=== PATIENT | female | born 1970 | race Caucasian/White ===

== ENCOUNTER 2021-09-22 10:28 | Outpatient (CLI) | payer BC, SELFPAY ==
[2021-09-22 10:44] LABS: Hematocrit 42.4 % (35.0-49.0); Mean Corpuscular Hemoglobin 31.3 pg (27.0-31.0); Mean Corpuscular Volume 94.6 fL (78.0-102.0); Mean Platelet Volume 10.1 fl (9.2-11.8); Platelet Count Result 314 K/mm3 (150-420); Red Blood Count 4.48 M/mm3 (4.20-5.40); Red Cell Distribution Width 12.1 % (11.6-14.4); White Blood Count 13.3 K/mm3 (4.8-10.8)
[2021-09-22 11:31] LABS: Alanine Aminotransferase 18 U/L (14-59); Albumin Level 3.6 g/dL (3.4-5.0); Alkaline Phosphatase 74 U/L (46-116); Anion Gap 6 mmol/L (8-16); Aspartate Amino Transferase 11 U/L (15-37); Bilirubin,Total 0.2 mg/dL (0.00-1.00); Blood Urea Nitrogen 13 mg/dL (7-18); Calcium 9.2 mg/dL (8.5-10.1); Carbon Dioxide 28 mmol/L (21-32); Chloride 105 mmol/L (98-108); Cholesterol 180 mg/dL (0-200); Estimated Glomerular Filt Rate > 60; Glucose 90 mg/dL (70-99); HDL Direct 39 mg/dL (40-60); LDL Cholesterol Calculated 81 mg/dL (<130); Osmolality Calculated 288 mOsm/kg (285-295); Sodium 139 mmol/L (136-145); Total Protein 6.7 g/dL (6.4-8.2); Triglycerides 302 mg/dL (0-150)
[2021-09-22 11:35] LABS: Thyroid Stimulating Hormone Reflex 1.05 u/IU/mL (0.36-3.74)
[2021-09-22 11:36] LABS: CRP < 0.2 mg/dL (0.0-0.9)
[2021-09-22 11:54] LABS: Erythrocyte Sedimentation Rate 18 mm/hr (0-15)
== END 2021-09-22 10:29 | disposition home or self-care (01) ==
LOC: CHSLAB 10:32
PROVIDERS: PCP Family Medicine; Visit Provider Internal Medicine Gastroenterology
DX: K50.90 Crohn's disease, unspecified, without complications (principal); C18.1 Malignant neoplasm of appendix; Z86.73 Personal history of transient ischemic attack (TIA), and cerebral infarction without residual deficits; Z12.39 Encounter for other screening for malignant neoplasm of breast; E11.9 Type 2 diabetes mellitus without complications
CPT/HCPCS: 36415; 80053; 80061; 84443; 85027; 85652; 86140

== ENCOUNTER 2021-10-11 15:17 | Outpatient (CLI) | payer BC, SELFPAY ==
[2021-10-11 16:22] LABS: SARS-CoV-2 RNA PCR Positive (Negative)
== END 2021-10-11 15:18 | disposition home or self-care (01) ==
LOC: CHSLAB 15:23
PROVIDERS: PCP Family Medicine; Visit Provider Nurse Practitioner Family
DX: U07.1 COVID-19 (principal)
CPT/HCPCS: C9803; U0003; U0005

== ENCOUNTER 2021-11-24 13:42 | Outpatient (CLI) | payer BC, SELFPAY ==
[2021-11-26 16:16] LABS: NIL 0.02 IU/mL; Quantiferon TB Plus, 1T NEGATIVE (NEGATIVE); TB2-NIL <0.00 IU/mL
== END 2021-11-24 13:43 | disposition home or self-care (01) ==
LOC: CHSLAB 13:44
PROVIDERS: PCP Nurse Practitioner Family; Visit Provider Internal Medicine Gastroenterology
DX: K50.90 Crohn's disease, unspecified, without complications (principal)
CPT/HCPCS: 36415; 86480

== ENCOUNTER 2022-01-02 15:43 | Outpatient (CLI) | payer BC, SELFPAY ==
[2022-01-02 16:08] LABS: Basophils Absolute Auto 0.06 K/mm3 (0.00-0.10); Basophils Percent Auto 0.5 % (0.0-1.0); Eosinophils Absolute Auto 0.09 K/mm3 (0.02-0.50); Eosinophils Percent Auto 0.8 % (1.0-6.0); Hemoglobin 14.1 g/dL (12.0-15.0); Immature Granulocyte Absolute 0.04 K/mm3 (0.00-0.00); Immature Granulocyte Percent A 0.3 % (0.0-0.0); Lymphocytes Absolute Auto 3.39 K/mm3 (1.10-4.50); Lymphocytes Percent Auto 28.8 % (18.0-42.0); Mean Corpuscular HGB Conc 32.8 g/dL (32.0-36.0); Mean Corpuscular Hemoglobin 31.3 pg (27.0-31.0); Mean Corpuscular Volume 95.6 fL (78.0-102.0); Mean Platelet Volume 10.1 fl (9.2-11.8); Monocytes Absolute Auto 0.49 K/mm3 (0.10-0.90); Monocytes Percent Auto 4.2 % (2.0-11.0); Neutrophils Absolute Auto 7.7 K/mm3 (1.7-7.2); Neutrophils Percent Auto 65.4 % (50.0-70.0); Platelet Count Result 298 K/mm3 (150-420); White Blood Count 11.8 K/mm3 (4.8-10.8)
[2022-01-02 16:23] LABS: Alanine Aminotransferase 18 U/L (14-59); Albumin Level 3.4 g/dL (3.4-5.0); Alkaline Phosphatase 63 U/L (46-116); Amylase 54 U/L (25-115); Anion Gap 10 mmol/L (8-16); Aspartate Amino Transferase < 10 U/L (15-37); Bilirubin,Total 0.2 mg/dL (0.00-1.00); Blood Urea Nitrogen 11 mg/dL (7-18); Carbon Dioxide 27 mmol/L (21-32); Chloride 104 mmol/L (98-108); Estimated Glomerular Filt Rate 59; Glucose 126 mg/dL (70-99); Lipase 91 U/L (73-393); Osmolality Calculated 293 mOsm/kg (285-295); Potassium 4.7 mmol/L (3.5-5.1); Sodium 141 mmol/L (136-145)
[2022-01-03 09:48] LABS: Hemoglobin A1C 5.7 % (<5.7)
[2022-01-03 09:51] LABS: Cholesterol 215 mg/dL (0-200); HDL Direct 54 mg/dL (40-60); LDL Cholesterol Calculated 115 mg/dL (<130); Triglycerides 229 mg/dL (0-150)
[2022-01-04 12:25] LABS: Vitamin D 25 Hydroxy 18 ng/mL (30-100)
== END 2022-01-02 15:44 | disposition home or self-care (01) ==
LOC: CHSLAB 15:44
PROVIDERS: PCP Nurse Practitioner Family; Visit Provider Nurse Practitioner Family
DX: R10.11 Right upper quadrant pain (principal); Z79.899 Other long term (current) drug therapy
CPT/HCPCS: 36415; 80053; 80061; 82150; 82306; 83036; 83690; 85025

== ENCOUNTER 2022-01-06 07:45 | Outpatient (CLI) | payer BC, SELFPAY ==
--- NOTE | ~2022-01-06 | CT_ITS ---
EXAMINATION: CT abdomen pelvis w con DATE: 01/06/2022 08:24 INDICATION: Right lower quadrant abdominal pain. TECHNIQUE: Computed tomography (CT) of the abdomen and pelvis was performed with 100 mL Omnipaque-350 intravenous contrast. Automated exposure control and iterative reconstruction technique were employe d. The dose-length product was 697.95 mGy-cm. COMPARISON: None FINDINGS: Lung bases are clear. Heart size is normal. No pericardial or pleural effusion. Liver, gallbladder, s pleen, pancreas, bilateral adrenal glands and left kidney are normal. 2. 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 Suture line at the tip the cecum consistent with prior appendectomy. There is diffuse mild wall thickening of the colon consistent wi th colitis. No pneumatosis. Small bowel is normal. Bladder, uterus and bilateral adnexa are unremarka ble. No abscess or free intraperitoneal gas or fluid. No pathologically enlarged abdominal or pelvic lymphadenopathy. 5 mm retrolisthesis L5 on S1 with mild lumbosacral spondylosis. IMPRESSION: 1. Diffuse mild colonic wall thickening consistent with colitis which could be infectious, inflammato ry or less likely ischemic in etiology. Reviewed, dictated and finalized at location A. CONSULTANT IMPRESSION: 1. Diffuse mild colonic wall thickening consistent with colitis which could be infectious, inflammatory or less likely ischemic in etiology.
== END 2022-01-06 07:46 | disposition home or self-care (01) ==
LOC: CHSIMG 07:47
PROVIDERS: PCP Nurse Practitioner Family; Visit Provider Nurse Practitioner Family
DX: R10.11 Right upper quadrant pain (principal); R10.31 Right lower quadrant pain; R10.32 Left lower quadrant pain; Z85.9 Personal history of malignant neoplasm, unspecified; K50.90 Crohn's disease, unspecified, without complications
CPT/HCPCS: 74177; Q9967

== ENCOUNTER 2022-01-17 11:43 | Outpatient (CLI) | payer BC, SELFPAY ==
[2022-01-17 15:21] LABS: Carcinoembryonic Antigen 0.9 ng/mL (0.0-3.0)
[2022-01-23 16:46] LABS: Serotonin <10 ng/mL (56-244)
== END 2022-01-17 11:44 | disposition home or self-care (01) ==
LOC: ANHLAB 11:45
PROVIDERS: PCP Nurse Practitioner Family; Visit Provider Internal Medicine Hematology & Oncology
DX: C18.1 Malignant neoplasm of appendix (principal)
CPT/HCPCS: 36415; 82378; 84260; 86316

== ENCOUNTER 2022-04-14 13:00 | Outpatient (CLI) | payer BC, SELFPAY | END 2022-04-14 13:01 | disposition home or self-care (01) | PROVIDERS: PCP Family Medicine; Visit Provider Otolaryngology | DX: H91.92 Unspecified hearing loss, left ear (principal) | CPT/HCPCS: 92557; 92567 ==

== ENCOUNTER 2022-04-20 10:18 | Outpatient (CLI) | payer BC, SELFPAY ==
--- NOTE | ~2022-04-20 | XR_ITS ---
EXAMINATION: HAND-MYAH ARTHRITIS 3+VIEWS DATE: 04/20/2022 10:58 INDICATION: Pain and unspecified joint. Arthritis. TECHNIQUE: Posteroanterior, lateral, and oblique views of the left and of the right hands as well as a ballcatchers view of both hands were obtained. COMPARISON: None. 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 Residual tiny bone fragment along the osteotomy margin. The left fourth digit is curled back upon itself with persistent flexion at the proximal and distal interphalangeal joints. Alignment is other hawley normal at the bilateral hands and wrists. No acute fracture. Joint spaces are normal. No erosion s identified. Soft tissues are unremarkable. IMPRESSION: 1. Persistent flexion at the left fourth proximal and distal interphalangeal joints, unclear whether this is due to transient positioning of the finger in flexion or due to a chronic fixed flexion defor mity. 2. 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 No acute osseous abnormality. Reviewed, dictated and finalized at location B. IMPRESSION: 1. Persistent flexion at the left fourth proximal and distal interphalangeal neris ints, unclear whether this is due to transient positioning of the finger in fle xion or due to a chronic fixed flexion deformity. 2. Status post amputation across the midportion of the right second distal phal anx. No acute osseous abnormality.
--- NOTE | ~2022-04-20 | XR_ITS ---
EXAMINATION: [id number] DATE: 04/20/2022 10:58 INDICATION: Neck pain. TECHNIQUE: 3 views of cervical spine were obtained. COMPARISON: None. FINDINGS: There is hypolordosis of cervical spine. Vertebral body heights and intervertebral disc hei ghts are normal. The facet joints are normal. No central canal stenosis or prevertebral soft tissue s welling. IMPRESSION: 1. No etiology for the patient's symptoms. Reviewed, dictated and finalized at location A.
[2022-04-20 10:43] LABS: Hemoglobin 12.9 g/dL (12.0-15.0); Mean Corpuscular HGB Conc 32.3 g/dL (32.0-36.0); Mean Corpuscular Hemoglobin 30.8 pg (27.0-31.0); Mean Corpuscular Volume 95.5 fL (78.0-102.0); Mean Platelet Volume 10.2 fl (9.2-11.8); Platelet Count Result 240 K/mm3 (150-420); Red Blood Count 4.19 M/mm3 (4.20-5.40); Red Cell Distribution Width 12.6 % (11.6-14.4); White Blood Count 8.7 K/mm3 (4.8-10.8)
[2022-04-20 10:58] LABS: Alanine Aminotransferase 22 U/L (14-59); Albumin Level 3.4 g/dL (3.4-5.0); Alkaline Phosphatase 66 U/L (46-116); Anion Gap 5 mmol/L (8-16); Aspartate Amino Transferase 18 U/L (15-37); Bilirubin,Total 0.3 mg/dL (0.00-1.00); Blood Urea Nitrogen 12 mg/dL (7-18); Calcium 8.7 mg/dL (8.5-10.1); Carbon Dioxide 28 mmol/L (21-32); Chloride 103 mmol/L (98-108); Estimated Glomerular Filt Rate > 60; Glucose 94 mg/dL (70-99); Osmolality Calculated 281 mOsm/kg (285-295); Potassium 3.7 mmol/L (3.5-5.1); Sodium 136 mmol/L (136-145); Total Protein 6.8 g/dL (6.4-8.2); Uric Acid 4.6 mg/dL (2.6-6.0)
[2022-04-20 11:13] LABS: Rheumatoid Factor Screen Negative (Negative)
[2022-04-20 11:46] LABS: Erythrocyte Sedimentation Rate 15 mm/hr (0-15)
[2022-04-21 14:33] LABS: Thyroid Stimulating Hormone 1.97 uIU/mL (0.36-3.74)
[2022-04-25 22:26] LABS: Anti Nuclear Antibody Titer 1:40 (Negative)
== END 2022-04-20 10:19 | disposition home or self-care (01) ==
LOC: CHSLAB 10:22
PROVIDERS: PCP Family Medicine; Visit Provider Family Medicine
DX: M25.50 Pain in unspecified joint (principal); R60.9 Edema, unspecified; M54.9 Dorsalgia, unspecified; M54.2 Cervicalgia
CPT/HCPCS: 36415; 72040; 73130; 80053; 84443; 84550; 85027; 85652; 86038; 86039; 86430

== ENCOUNTER 2022-05-18 11:37 | Outpatient (CLI) | payer BC, SELFPAY ==
--- NOTE | 2022-05-18 11:43 | ECG_ITS ---
Measurements Intervals [place] Rate: 63 P: 72 MN: 139 QRS: 67 QRSD: 86 T: 66 QT: 400 QTc: 412 Interpretive Statements SINUS RHYTHM NO PREVIOUS ECG AVAILABLE FOR COMPARISON Electronically Signed On 05-18-2022 18:15:27 CDT by Dana Velez M.D.
== END 2022-05-18 11:38 | disposition home or self-care (01) ==
LOC: CHSIMG 11:39
PROVIDERS: PCP Family Medicine; Visit Provider Anesthesiology
DX: I48.91 Unspecified atrial fibrillation (principal)
CPT/HCPCS: 93005

== ENCOUNTER 2022-05-19 01:05 | Day surgery (SDC) | payer BC, SELFPAY ==
[2022-05-12 16:04] VITALS: BMI 31.6
--- NOTE | 2022-05-12 16:11 | SUR.PREOP ---
Report to the Outpatient Waiting Room, entrance under the green pavilion located off [facility], at time _0700 on date __05/19/22 . [place] Time: 0900 . - You and your visitor will be asked a series of questions to screen for COVID 19 for your protection. - Only one visitor is allowed at this time. - The patient visitor is requested to leave or wait in car when not with patient. - A mask is required within the hospital. Patients may have clear liquids (water, carbonated beverages, clear teas, apple juice) until 3 hours prior to surgery with a maximum of 20 ounces. - No food from midnight until time of surgery - Infants may have breast milk until 4 hours before surgery, infant formula 6 hours prior to surgery. - Children will be allowed to drink immediately following surgery. If applicable, please bring a bottle or sippy cup to assist with drinking. Juice, water, soda, and popsicles are readily available. For infants on formula, please bring formula the day of surgery. Pacifiers are allowed. Take the following medications with a SIP of water the morning of surgery: __prednisone Medications to discontinue per physician ___to inquire with surgeon about asa and eliquis vitamin supplements Date to take last dose____05/16/22 Please no make-up, nail comoran, hairspray, perfume, deodorant, or body powder the day of surgery. No jewelry (including any body piercings) or valuables the day of surgery, leave them at home. Please take a shower or bath the night before, or the morning of, surgery with an antibacterial soap. Wear comfortable, loose fitting clothing. Children are encouraged to wear pajamas. - Jewelry must be removed prior to entering the operating room. Rings and piercings that are not removed may be cut off. - The hospital will not accept responsibility for valuables. - Please leave all valuables, including medications, at home the day of surgery. If you are going home after surgery, a licensed tram driver must drive you home. - NO public transportation without another adult. - We recommend that an adult stay with you for 24 hours following discharge. - We also recommend that you do not drive, make important decision, drink alcoholic beverages, or take any drugs that were not prescribed by your health care provider for at least 24 hours after your discharge time. For Pediatric surgeries, we recommend two adults accompany the child home (only one inside the building at this time). Follow any additional instructions given to you from your surgeon. If you or anyone in your household have experienced Covid symptoms in the past week, please notify your surgeon or the nurse liaison at the phone number below for possible testing. Telephone instructions given to _herminio rowell and asked if any additional questions and then verbalized understanding. Patient advised to call surgeon office or pre surgery nurse liaison [phone] if any additional questions.
--- NOTE | 2022-05-18 16:41 | PM.IMHP ---
H&P: HPI History of Present Illness Date/Time: 05/18/22 16:41 Chief Complaint: Eustachian tube dysfunction bilateral otitis media hearing loss Narrative: Patient presents for planned surgical procedure no change in symptoms no change in history Review of Systems Review of Systems: All systems reviewed & are unremarkable except as noted in HPI and below [facility] Past Medical History Medical History Amputated toe of right foot Arnold-Chiari malformation Atrial fibrillation Crohn's disease Epistaxis Goblet cell carcinoid History of CVA (cerebrovascular accident) Portal vein thrombosis Uveitis Surgical History Surgical History H/O shoulder surgery H/O sinus surgery H/O surgical amputation of finger History of appendectomy 05/2019 History of bowel resection History of ear surgery Social History Social History Smoking status: Former smoker Tobacco type: cigarettes Smoking end date: 09/19/15 Additional smoking assessment comments: 25 years 2 ppd cigarettes Alcohol intake: never Substance use: never Substance use type: marijuana Other substance usage details: marijuana tea 5x a week Spiritual care concerns: No Meds Home Medications and Allergies Home Medications Medication Instructions Recorded Confirmed Type apixaban 5 mg tablet (Eliquis) 5 mg PO BID 08/02/21 05/12/22 History hegpyakdhhkwpo-xodhywnyak-dwecmkp-zinc 1 supp RECTAL PRN PRN Hemorrhoids 08/02/21 05/12/22 History 25 mg rectal suppository ondansetron HCl 4 mg tablet 4 mg PO Q8H 08/02/21 05/12/22 History (Zofran) sucralfate 1 gram tablet 1 g PO TID PRN Acid Reflux 08/02/21 05/12/22 History adalimumab 40 mg/0.8 mL See Rx Instructions subcut .Every 10/24/21 05/12/22 Rx subcutaneous pen kit (Humira Pen) other Week #2 ea pantoprazole 40 mg tablet,delayed 40 mg PO QAM #90 tabs 01/09/22 05/12/22 Rx release mercaptopurine 50 mg tablet 50 mg PO DAILY #30 tabs 01/18/22 05/12/22 Rx alprazolam 0.5 mg tablet 0.5 mg PO DAILY PRN anxiety #20 03/22/22 05/12/22 Rx tabs atorvastatin 40 mg tablet 40 mg PO DAILY #90 tabs 03/22/22 05/12/22 Rx cholecalciferol (vitamin D3) 1,250 1,250 mcg PO WEEKLY #12 caps 03/22/22 05/12/22 Rx mcg (50,000 unit) capsule prednisone 10 mg tablet 10 mg PO DAILY 04/24/22 05/12/22 History mupirocin 2 % topical ointment 1 applic topical BID #22 grams 04/25/22 05/12/22 Rx ascorbic acid (vitamin C) 1,000 mg 1 g PO DAILY 05/12/22 05/12/22 History tablet (Vitamin C) aspirin 81 mg tablet,delayed 81 mg PO DAILY 05/12/22 05/12/22 History release paroxetine HCl 10 mg tablet 10 mg PO HS 05/12/22 05/12/22 History prednisolone acetate 1 % eye 1 drp EACH EYE PRN 05/12/22 05/12/22 History drops,suspension tumeric 100 mg-benjy 150 mg-olive 1 cap PO DAILY 05/12/22 05/12/22 History 50 mg-oreg 150 mg-caprylate capsule vitamin B12 1,000 mcg-folic acid 1 tablet sublingual DAILY 05/12/22 05/12/22 History 400 mcg sublingual tablet oxycodone 5 mg tablet 5 mg PO Q8H PRN pain #2 tabs 05/16/22 Rx Allergies Allergy/AdvReac Type Severity Reaction Status Date / Time metronidazole [From Flagyl] Allergy Severe GI bleeding Verified 05/12/22 15:12 Sulfa (Sulfonamide Allergy Severe GI Bleeding Verified 05/12/22 15:12 Antibiotics) hydrocodone [From Vicodin] AdvReac Severe Vomiting Verified 05/12/22 15:12 Exam Narrative: Ears retracted fluid septal deviation otherwise normal ENT exam normal face cranial nerves Assessment and Plan Assessment and plan (1) Dysfunction of both eustachian tubes: Code(s): H69.83 - Other specified disorders of Eustachian tube, bilateral Status: Acute Assessment and Plan: Plan is for nasal endoscopy bilateral eustachian tube balloon dilation bilateral ofe microscopy with T-tube insertion
[2022-05-19] VITALS (10 sets, daily range): BP systolic 100–142; BP diastolic 62–94; PULSE 57–77; RESP 8–20; TEMP 36.1–36.5; O2SAT 94–100
--- NOTE | 2022-05-19 07:14 | WPDHPUPDATE1 ---
History and Physical Update Update Date/Time: 05/19/22 07:14 History and Physical has been reviewed, including an updated exam of the patient. There are NO changes in the patient's condition. Risks, benefits, and alternatives have been discussed and questions answered. Patient agrees to proceed with procedure.
[2022-05-19] MEDS: ACETAMINOPHEN 500 MG TABLET 1000 MG PO (07:57)
--- NOTE | 2022-05-19 08:05 | WPDANESEPPF ---
Anes - Initial Pre Proc Eval Procedure: Operation Date: 05/19/22 09:15 Proposed Procedures p Bilateral Myringotomy, Insertion Of Tubes, with Eustachian Tube Dilation, - Lucho Peralta MD s Nasopharyngoscopy - Lucho Peralta MD Date/Time: 05/19/22 08:05 Surgeon: Lucho Peralta MD Pre Op Diagnosis: biateral chronic otitis media Patient Data Age: 51 Gender: F Height: 1.65 m Weight: 88.1 kg Last Vital Signs Temp 36.1 C L 05/19/22 07:27 Pulse 67 05/19/22 07:27 Resp 18 05/19/22 07:27 BP 135/82 05/19/22 07:27 Pulse Ox 100 05/19/22 07:27 O2 Del Method Room Air 05/19/22 07:27 Allergies Allergy/AdvReac Type Severity Reaction Status Date / Time metronidazole [From Flagyl] Allergy Severe GI bleeding Verified 05/12/22 15:12 Sulfa (Sulfonamide Allergy Severe GI Bleeding Verified 05/12/22 15:12 Antibiotics) hydrocodone [From Vicodin] AdvReac Severe Vomiting Verified 05/12/22 15:12 Home Medications Medication Instructions Recorded Confirmed Type apixaban 5 mg tablet (Eliquis) 5 mg PO BID 08/02/21 05/12/22 History qvjadrnuvuzdes-zxlyrbgfvi-vjbzmen-zinc 1 supp RECTAL PRN PRN Hemorrhoids 08/02/21 05/12/22 History 25 mg rectal suppository ondansetron HCl 4 mg tablet 4 mg PO Q8H 08/02/21 05/12/22 History (Zofran) sucralfate 1 gram tablet 1 g PO TID PRN Acid Reflux 08/02/21 05/12/22 History adalimumab 40 mg/0.8 mL See Rx Instructions subcut .Every 10/24/21 05/12/22 Rx subcutaneous pen kit (Humira Pen) other Week #2 ea pantoprazole 40 mg tablet,delayed 40 mg PO QAM #90 tabs 01/09/22 05/12/22 Rx release mercaptopurine 50 mg tablet 50 mg PO DAILY #30 tabs 01/18/22 05/12/22 Rx alprazolam 0.5 mg tablet 0.5 mg PO DAILY PRN anxiety #20 03/22/22 05/12/22 Rx tabs atorvastatin 40 mg tablet 40 mg PO DAILY #90 tabs 03/22/22 05/12/22 Rx cholecalciferol (vitamin D3) 1,250 1,250 mcg PO WEEKLY #12 caps 03/22/22 05/12/22 Rx mcg (50,000 unit) capsule prednisone 10 mg tablet 10 mg PO DAILY 04/24/22 05/12/22 History mupirocin 2 % topical ointment 1 applic topical BID #22 grams 04/25/22 05/12/22 Rx ascorbic acid (vitamin C) 1,000 mg 1 g PO DAILY 05/12/22 05/12/22 History tablet (Vitamin C) aspirin 81 mg tablet,delayed 81 mg PO DAILY 05/12/22 05/12/22 History release paroxetine HCl 10 mg tablet 10 mg PO HS 05/12/22 05/12/22 History prednisolone acetate 1 % eye 1 drp EACH EYE PRN 05/12/22 05/12/22 History drops,suspension tumeric 100 mg-benjy 150 mg-olive 1 cap PO DAILY 05/12/22 05/12/22 History 50 mg-oreg 150 mg-caprylate capsule vitamin B12 1,000 mcg-folic acid 1 tablet sublingual DAILY 05/12/22 05/12/22 History 400 mcg sublingual tablet oxycodone 5 mg tablet 5 mg PO Q8H PRN pain #2 tabs 05/16/22 Rx Patient hx anesthesia problems: none Family hx anesthesia problems: none Results Review: All pre-operative results and documents have been reviewed as part of the pre-operative evaluation. [facility] Past Medical History Medical History Amputated toe of right foot Arnold-Chiari malformation Atrial fibrillation Crohn's disease Epistaxis Goblet cell carcinoid History of CVA (cerebrovascular accident) Portal vein thrombosis Uveitis Surgical History Surgical History H/O shoulder surgery H/O sinus surgery H/O surgical amputation of finger History of appendectomy 05/2019 History of bowel resection History of ear surgery Social History Social History Smoking status: Former smoker Tobacco type: cigarettes Smoking end date: 09/19/15 Additional smoking assessment comments: Quit 2015. 35pk yr history Alcohol intake: never Substance use: never Substance use type: marijuana Other substance usage details: marijuana tea 5x a week Living arrangements: with family Spiritual care concerns: Roxana Salcedo
[2022-05-19] MEDS: CIPROFLOXACIN HCL 0.3% OP SOLN 2.5 ML BTL 4 DROP EACH EAR (09:36)
[2022-05-19] MEDS: OXYMETAZOLINE HCL 0.05% NAS 15 ML BTL (*BKC) 1 SPRAY NASAL (09:51)
[2022-05-19] MEDS: LACTATED RINGERS 1,000 ML 30 ML IV CONT ×2 (10:15→10:35)
--- NOTE | 2022-05-19 10:30 | P.OP_ITS ---
Procedure Note - Detailed Date of Procedure 05/19/22 Pre-op Diagnosis biateral chronic otitis media, eustachian tube dysfunction bilateral Post-op Diagnosis Same Procedure Performed Nasopharyngoscopy unable to fully dilate eustachian tubes, bilateral myringotomy with T-tube insertion., nasal debridement with nasal endoscopy Surgeon Lucho Peralta MD Anesthesia General Indications See above Findings Severely retracted bilateral ear drums basically thick mucus motor oil in the bilateral middle ears suctioned out T-Tube placed successfully unable to cannulate the left eustachian tube completely scarred down only able to get the tip of the balloon in the right-sided unable to dilate either. Left sphenoid sinusitis or sphenoethmoidal recess this was cleaned debrided lots nasal crust was all debrided. Description of Procedure Patient identified consent verified. Patient brought operating. Time-out performed. General anesthesia induced endotracheal tube secured. Patient prepped and draped for procedure 2nd performed. Joe microscope brought in operative field right-sided viewed TM retracted thick mucus myringotomy made thick mucus suctioned out T-Tube placed drops placed exact same procedure exact same findings performed on the left side. Was a bilateral procedure. Afrin- soaked pledgets placed for 5 minutes the nasal passages then removed. 0 degree endoscope utilized septal deviation. Nose was debrided. Persistent left sinus sphenoid sinusitis. Unable to cannulate either torus left was essentially non- existent right was able to get the tip and the not able to fully insert the device. Patient tolerated the procedure well no complications blood loss probably 1-5 cc. I did all the procedure care the patient given Anesthesiology. Patient taken to PACU. Estimated Blood Loss 1 Drains No Packing No Pathology None sent Complications No immediate complications Condition Stable Disposition PACU
[2022-05-19] MEDS: fentaNYL CITRATE INJ (*CRX) 100 MCG/2 ML VIAL 25 MCG IV PUSH ×2 (10:33→10:35)
== END 2022-05-19 12:42 | disposition home or self-care (01) ==
PROVIDERS: PCP Family Medicine; Visit Provider Otolaryngology
PROC: (CPT 69436; principal; 2022-05-19 09:15)
PROC: (CPT 69436; 2022-05-19 09:15)
DX: H66.93 Otitis media, unspecified, bilateral (principal); H69.83 Other specified disorders of Eustachian tube, bilateral; J32.3 Chronic sphenoidal sinusitis; H91.93 Unspecified hearing loss, bilateral; J34.2 Deviated nasal septum; I48.91 Unspecified atrial fibrillation; K50.90 Crohn's disease, unspecified, without complications; F12.90 Cannabis use, unspecified, uncomplicated; E66.9 Obesity, unspecified; Z68.32 Body mass index [BMI] 32.0-32.9, adult; Z86.73 Personal history of transient ischemic attack (TIA), and cerebral infarction without residual deficits; Z79.82 Long term (current) use of aspirin; Z79.01 Long term (current) use of anticoagulants; Z87.891 Personal history of nicotine dependence
CPT/HCPCS: 69436; 31237; A9270; C1726; J0330; J2250; J2405; J2704; J3010; J7120

== ENCOUNTER 2022-05-31 13:57 | Outpatient (CLI) | payer BC, SELFPAY ==
--- NOTE | ~2022-05-31 | CT_ITS ---
EXAMINATION: CT abdomen pelvis w con DATE: 05/31/2022 14:42 INDICATION: Malignant neoplasm of the appendix. TECHNIQUE: Computed tomography (CT) of the abdomen and pelvis was performed with 100 mL Omnipaque-300 intravenous contrast. Automated exposure control and iterative reconstruction technique were employe d. The dose-length product was 586.12 mGy-cm. COMPARISON: 01/06/2022 FINDINGS: Lung bases are clear. Heart size is normal. No pericardial or pleural effusion. Liver, gallbladder, s pleen, pancreas, bilateral adrenal glands and kidneys are normal. Suture line at the tip the cecum co nsistent with provided history of prior appendectomy for gout with subtle carcinoma. Bowels are other hawley unremarkable with no obstruction. Bladder, anteverted uterus and bilateral adnexa are unremarkab le. No free intraperitoneal gas or fluid. No pathologically enlarged abdominal or pelvic lymphadenopa thy. Unchanged 5 mm retrolisthesis L5 on S1 with mild lumbosacral spondylosis. . IMPRESSION: 1. Status post appendectomy reportedly for comfort cell carcinoma. No evident metastatic disease. Reviewed, dictated and finalized at location B. IMPRESSION: 1. Status post appendectomy reportedly for comfort cell carcinoma. No evident m etastatic disease.
== END 2022-05-31 13:58 | disposition home or self-care (01) ==
LOC: ANHIMG 13:58
PROVIDERS: PCP Family Medicine; Visit Provider Internal Medicine Hematology & Oncology
DX: C18.1 Malignant neoplasm of appendix (principal); K55.069 Acute infarction of intestine, part and extent unspecified; M47.817 Spondylosis without myelopathy or radiculopathy, lumbosacral region; R10.9 Unspecified abdominal pain
CPT/HCPCS: 74177; Q9967

== ENCOUNTER 2022-07-05 11:58 | Outpatient (CLI) | payer BC, SELFPAY ==
[2022-07-05 12:25] LABS: Basophils Percent Auto 0.4 % (0.2-1.2); Eosinophils Absolute Auto 0.1 K/mm3 (0-0.3); Eosinophils Percent Auto 0.6 % (0-4.4); Hematocrit 42.3 % (37.0-47.0); Hemoglobin 13.8 g/dL (12.0-15.0); Immature Granulocyte Absolute 0.02 K/mm3 (0.00-0.031); Immature Granulocyte Percent A 0.2 % (0-0.5); Lymphocytes Absolute Auto 2.04 K/mm3 (0.9-3.2); Lymphocytes Percent Auto 24.3 % (18.3-44.2); Mean Corpuscular HGB Conc 32.6 g/dl (32-36); Mean Corpuscular Hemoglobin 31.3 pg (26-34); Mean Corpuscular Volume 95.9 fl (80-100); Mean Platelet Volume 10.2 fl (7.4-10.4); Monocytes Absolute Auto 0.3 K/mm3 (0.1-0.6); Monocytes Percent Auto 3.5 % (2.6-8.5); Platelet Count Result 246 k/mm3 (150-375); Red Blood Count 4.41 M/mm3 (4.2-5.4); Red Cell Distribution Width 13.2 % (11.5-14.5); White Blood Count 8.4 K/mm3 (4.5-10.0)
--- NOTE | 2022-07-05 12:28 | ECHO_ITS ---
Patient Info Name: Danette Thomas Age: 51 years : 1970 Gender: Female Ht: 64 in Wt: 192 lbs BSA: 2.02 m2 HR: 69 bpm BP: 108 / 65 mmHg Heart Rhythm: Sinus Rhythm Technical Quality: Fair Exam Date: 07/05/2022 12:53 PM Exam Location: [facility] Patient Status: Outpatient Admit Date: 07/05/2022 Staff Ordering Physician: Grey Bartlett DO Popcorn Candy Maker: Dalai Meyer RDCS Attending Provider: Grey Bartlett DO Referring Physician: Dhruv CHAWLA; Exam Type: CA echo doppler color flow Study Info Indications I48.0 - Paroxysmal atrial fibrillation Complete two-dimensional, color flow and Doppler transthoracic echocardiogram is performed. Summary 1. Complete two-dimensional, color flow and Doppler transthoracic echocardiogram is performed. 2. Left ventricular chamber dimension is normal. 3. Left ventricular systolic function is normal, estimated at 60-65%. 4. The left ventricular diastolic function is normal. 5. E/e' 8 is minimally elevated. 6. There is trace mitral valve regurgitation. 7. There is trace tricuspid valve regurgitation. 8. No pulmonary hypertension, estimated pulmonary arterial systolic pressure is 33 mmHg. Left Ventricle E/e' 8 is minimally elevated. Left ventricular chamber dimension is normal. Left ventricular systolic function is normal, estimated at 60-65%. The left ventricular diastolic function is normal. Right Ventricle Right ventricular chamber dimension is normal. Right ventricular systolic function is normal. Left Atria Left atrial chamber dimension is normal. Right Atria Right atrial chamber dimension is normal. Aortic Valve The aortic valve is trileaflet. There is no aortic valve stenosis. There is no aortic valve regurgitation. Pulmonic Valve There is no pulmonic regurgitation. Mitral Valve There is no mitral valve stenosis. There is trace mitral valve regurgitation. Tricuspid Valve There is trace tricuspid valve regurgitation. No pulmonary hypertension, estimated pulmonary arterial systolic pressure is 33 mmHg. Pericardium/Pleural There is no pericardial effusion. Inferior Vena Cava Normal inferior vena cava with >50% collapse upon inspiration consistent with normal right atrial pressure, 5 mmHg. Aorta The aortic root size at the sinus of Valsalva is normal. Left Ventricular Outflow Tract Name Value Normal LVOT 2D LVOT Diameter 2.0 cm LVOT Doppler LVOT Peak Gradient 7 mmHg LVOT Mean Gradient 4 mmHg LVOT VTI 28 cm LVOT VTI/AV VTI Ratio 0.8 LVOT Stroke Volume 84 ml LVOT CO 5.5 l/min LVOT CI 2.7 l/min/m2 Pulmonic Valve Name Value Normal RVOT Doppler RVOT
[2022-07-05 12:41] LABS: Alanine Aminotransferase 12 U/L (6-35); Albumin Level 4.1 g/dL (3.5-5.1); Alkaline Phosphatase 58 U/L (38-126); Anion Gap 6 mmol/L (8-16); Aspartate Amino Transferase 20 U/L (14-36); Bilirubin,Total 0.3 mg/dL (0.2-1.3); Blood Urea Nitrogen 13 mg/dL (7-17); Calcium 9.2 mg/dL (8.4-10.2); Carbon Dioxide 27 mmol/L (22-30); Chloride 101 mmol/L (98-107); Estimated Glomerular Filt Rate 59; Glucose 113 mg/dL (65-110); Potassium 4.7 mmol/L (3.4-5.0); Sodium 134 mmol/L (137-145)
[2022-07-05 13:10] LABS: Carcinoembryonic Antigen 1.4 ng/mL (0.0-3.0)
== END 2022-07-05 11:59 | disposition home or self-care (01) ==
PROVIDERS: PCP Family Medicine; Visit Provider Internal Medicine Cardiovascular Disease
DX: C18.1 Malignant neoplasm of appendix (principal); I48.0 Paroxysmal atrial fibrillation; I48.91 Unspecified atrial fibrillation
CPT/HCPCS: 36415; 80053; 82378; 85025; 86316; 93306

== ENCOUNTER 2022-08-07 08:12 | Outpatient (CLI) | payer BC, SELFPAY ==
--- NOTE | ~2022-08-07 | CT_ITS ---
EXAMINATION: CT brain wo/w con DATE: 08/07/2022 09:03 INDICATION: Right arm weakness. Head pressure for 2 weeks. History of Chiari type I malformation. Pos tsurgical change of the posterior skull. History of stroke and infarct. TECHNIQUE: Computed tomography (CT) of the head was performed without intravenous contrast. The dose- length product was 1210.67 mGy-cm. Automated exposure control and iterative reconstruction technique were employed. COMPARISON: None FINDINGS: There is mild focal encephalomalacia with sulcal prominence of the left parietal vertex. No ventriculomegaly or midline shift. Basilar cisterns are patent. There are surgical changes at the oc cipital aspect of the skull. There is low lying cerebellar tonsils, consistent with known Chiari malf ormation. No ventriculomegaly or midline shift. No acute intracranial hemorrhage, infarction, mass or mass effect. Midline sagittal images demonstrate a normal corpus callosum and sella turcica. There i s mucosal thickening of the left frontal, maxillary and ethmoid sinuses. There is mild mucoperiosteal reaction. IMPRESSION: 1. Probable chronic left parietal infarction with encephalomalacia. 2: No acute intracranial abnormality. 3: Moderate sinus disease, likely chronic. Reviewed, dictated and finalized at location A.
== END 2022-08-07 08:13 | disposition home or self-care (01) ==
LOC: CHSIMG 08:13
PROVIDERS: PCP Family Medicine; Visit Provider Psychiatry & Neurology Neurology
DX: I63.9 Cerebral infarction, unspecified (principal)
CPT/HCPCS: 70470; Q9967

== ENCOUNTER 2022-09-18 14:21 | Emergency (ER) | payer BC, SELFPAY ==
--- NOTE | ~2022-09-18 | CT_ITS ---
EXAMINATION: CT abdomen pelvis wo con DATE: 09/18/2022 16:05 INDICATION: Left upper quadrant abdominal pain. TECHNIQUE: Computed tomography (CT) of the abdomen and pelvis was performed without intravenous contr ast. Automated exposure control and iterative reconstruction technique were employed. The dose-length product was 659.91 mGy-cm. COMPARISON: 05/31/2022 FINDINGS: Lung bases are clear. Visualized inferior heart is normal. No pericardial or pleural effusion. Liver, gallbladder, spleen, pancreas, bilateral adrenal glands and left kidney are normal. 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 Paracolic anastomosis in the right abdomen suggesting prior resection of the cecum and terminal ileum. 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 Also consistent with seq uela of chronic Crohn's disease is chronic fatty infiltration of the wall of multiple loops of ileum in the right abdomen. No focal inflammatory stranding, pneumatosis, abscess or free intraperitoneal g as or fluid. Bladder, anteverted uterus and bilateral adnexa are unremarkable. No pathologically enla rged abdominal or pelvic lymphadenopathy. Moderate lumbosacral spondylosis. IMPRESSION: 1. Wall thickening of multiple loops of distal small bowel is much of the colon which demonstrates fa t attenuation and favors chronic fatty infiltration which could be related to either body habitus or more likely sequela of chronic inflammation in this patient with known history of Crohn's disease. No regions of inflammatory stranding to suggest acute Crohn's flare. Reviewed, dictated and finalized at location B. IMPRESSION: 1. Wall thickening of multiple loops of distal small bowel is much of the colon which demonstrates fat attenuation and favors chronic fatty infiltration which could be related to either body habitus or more likely sequela of chronic infl ammation in this patient with known history of Crohn's disease. No regions of i nflammatory stranding to suggest acute Crohn's flare.
[2022-09-18 15:10] VITALS: BP 118/85; PULSE 76; RESP 16; TEMP 36.3; O2SAT 95
--- NOTE | 2022-09-18 15:34 | ECG_ITS ---
Measurements Intervals [place] Rate: 71 P: 74 MN: 132 QRS: 76 QRSD: 92 T: 74 QT: 389 QTc: 425 Interpretive Statements SINUS RHYTHM WITH SINUS ARRHYTHMIA DELAYED PRECORDIAL R/S TRANSITION BASELINE WANDER- I BORDERLINE ECG COMPARED TO ECG 05/18/2022 11:54:11 SINUS ARRHYTHMIA NOW PRESENT Electronically Signed On 09-19-2022 6:45:15 CDT by Grey Bartlett D.O.
[2022-09-18 15:59] LABS: Basophils Absolute Auto 0.02 K/mm3 (0.00-0.10); Basophils Percent Auto 0.2 % (0.0-1.0); Hematocrit 39.6 % (35.0-49.0); Hemoglobin 13.1 g/dL (12.0-15.0); Immature Granulocyte Absolute 0.02 K/mm3 (0.00-0.00); Immature Granulocyte Percent A 0.2 % (0.0-0.0); Lymphocytes Absolute Auto 2.36 K/mm3 (1.10-4.50); Lymphocytes Percent Auto 27.2 % (18.0-42.0); Mean Corpuscular HGB Conc 33.1 g/dL (32.0-36.0); Mean Corpuscular Hemoglobin 31.1 pg (27.0-31.0); Mean Corpuscular Volume 94.1 fL (78.0-102.0); Mean Platelet Volume 10.3 fl (9.2-11.8); Monocytes Absolute Auto 0.36 K/mm3 (0.10-0.90); Monocytes Percent Auto 4.1 % (2.0-11.0); Neutrophils Absolute Auto 5.9 K/mm3 (1.7-7.2); Neutrophils Percent Auto 68.3 % (50.0-70.0); Platelet Count Result 242 K/mm3 (150-420); Red Blood Count 4.21 M/mm3 (4.20-5.40); Red Cell Distribution Width 12.9 % (11.6-14.4); White Blood Count 8.7 K/mm3 (4.8-10.8)
[2022-09-18 16:14] LABS: INR 0.9; Partial Thromboplastin Time 28.7 SEC (23.90-30.70); Prothrombin Time 10.4 Seconds (9.50-12.10)
[2022-09-18 16:17] LABS: Alanine Aminotransferase 17 U/L (14-59); Albumin Level 3.6 g/dL (3.4-5.0); Alkaline Phosphatase 61 U/L (46-116); Anion Gap 7 mmol/L (8-16); Aspartate Amino Transferase 14 U/L (15-37); Bilirubin,Total 0.3 mg/dL (0.00-1.00); Blood Urea Nitrogen 10 mg/dL (7-18); Calcium 8.8 mg/dL (8.5-10.1); Carbon Dioxide 26 mmol/L (21-32); Chloride 107 mmol/L (98-108); Estimated Glomerular Filt Rate 58; Glucose 118 mg/dL (70-99); Osmolality Calculated 290 mOsm/kg (285-295); Potassium 5.1 mmol/L (3.5-5.1); Sodium 140 mmol/L (136-145); Total Protein 6.7 g/dL (6.4-8.2); Troponin I 6.7 ng/L (0.00-60.4)
[2022-09-18 16:20] VITALS: BP 120/78; PULSE 72; RESP 16; O2SAT 97
[2022-09-18] MEDS: SODIUM CHLORIDE 0.9% IV 1,000 ML 150 ML IV CONT (16:43)
[2022-09-18] MEDS: ONDANSETRON INJ 4 MG/2 ML VIAL IV PUSH (16:44)
[2022-09-18] MEDS: PANTOPRAZOLE SODIUM IV 40 MG VIAL IV PUSH (16:44)
[2022-09-18] MEDS: MORPHINE SULFATE (*CRX) 2 MG/ML INJ IV PUSH (16:45)
--- NOTE | 2022-09-18 16:52 | PC.NURSE ---
PT IS LYING ON STRETCHER WITH IVF INFUSING, SIG OTHER AT BEDSIDE. NAD NOTED. PT REPORTS SHE IS UNABLE TO PROVIDE UA AT THIS TIME. WILL CONTINUE TO MONITOR. PT IS AWAITING RESULTS AT THIS TIME.
--- NOTE | 2022-09-18 17:03 | PC.NURSE ---
1620 PT HAS RETURNED FROM CT AT THIS TIME, NAD NOTED. WILL CONTINUE TO MONITOR. PT IS UNABLE TO PROVIDE UA AT PRESENT.
--- NOTE | 2022-09-18 17:21 | ED.ABDPAIN ---
HPI - Abdominal Pain General Chief Complaint: Abdominal Pain Stated Complaint: L UPPER ABD PAIN/BELLY BUTT BLEEDING Time Seen by Provider: 09/18/22 14:25 Source: patient and RN notes reviewed Mode of arrival: ambulatory Limitations: no limitations History of Present Illness MD elicited complaint: abdominal pain Pertinent past history: diverticulitis Onset (ago): day(s) (2) Pain Consistency: constant Location: [facility] Severity: mild Pain scale (0-10): 5 Quality: aching Radiation: none Migration to: no migration Exacerbating factors: nothing Relieving factors: nothing Associated symptoms: nausea and vomiting Related Data Patient : No Home Medications Medication Instructions Recorded Confirmed rhzlezvuwxrgoc-zeoyegjbtv-mxxbbeb-zinc 1 supp RECTAL PRN PRN Hemorrhoids 08/02/21 09/18/22 25 mg rectal suppository ondansetron HCl 4 mg tablet 4 mg PO Q8H 08/02/21 09/18/22 (Zofran) sucralfate 1 gram tablet 1 g PO TID PRN Acid Reflux 08/02/21 09/18/22 ascorbic acid (vitamin C) 1,000 mg 1 g PO DAILY 05/12/22 09/18/22 tablet (Vitamin C) aspirin 81 mg tablet,delayed 81 mg PO DAILY 05/12/22 09/18/22 release prednisolone acetate 1 % eye 1 drp EACH EYE PRN 05/12/22 09/18/22 drops,suspension tumeric 100 mg-benjy 150 mg-olive 1 cap PO DAILY 05/12/22 09/18/22 50 mg-oreg 150 mg-caprylate capsule vitamin B12 1,000 mcg-folic acid 1 tablet sublingual DAILY 05/12/22 09/18/22 400 mcg sublingual tablet dicyclomine 10 mg capsule 10 mg PO QID 06/06/22 09/18/22 Allergies Allergy/AdvReac Type Severity Reaction Status Date / Time metronidazole [From Flagyl] Allergy Severe GI bleeding Verified 09/18/22 15:30 Sulfa (Sulfonamide Allergy Severe GI Bleeding Verified 09/18/22 15:30 Antibiotics) hydrocodone [From Vicodin] AdvReac Severe Vomiting Verified 09/18/22 15:30 Review of Systems Review of Systems: All systems reviewed & are unremarkable except as noted in HPI and below Constitutional: Constitutional: Reports no additional constitutional complaints Eyes: Eyes: Reports no additional eye complaints ENT: Reports system reviewed and no additional complaints, except as documented Cardiovascular: Cardiovascular: Reports no additional cardiovascular complaints Respiratory: Respiratory: Reports no additional respiratory complaints Gastrointestinal: Gastrointestinal: Reports no additional gastrointestinal complaints and Reports abdominal pain Genitourinary: Genitourinary: Reports no additional female genitourinary complaints Musculoskeletal: Musculoskeletal: Reports no additional musculoskeletal complaints Integumentary/Breasts: Skin/Breast: Reports system reviewed and no additional complaints, except as docu Neurologic: Reports system reviewed and no additional complaints, except as documented Psychiatric: Psychiatric: Reports no additional psychiatric complaints Endocrine: Endocrine: Reports no additional endocrine complaints Hematologic/Lymphatic: Hematologic/Lymphatic: Reports no additional hematologic/lymphatic complaints Allergic/Immunologic: Allergic/Immunologic: Reports no additional allergic/immunologic complaints PMF Past Medical History Medical History Amputated toe of right foot Arnold-Chiari malformation Atrial fibrillation Crohn's disease Epistaxis Goblet cell carcinoid History of CVA (cerebrovascular accident) Portal vein thrombosis Uveitis Surgical History Surgical History H/O shoulder surgery H/O sinus surgery H/O surgical amputation of finger History of appendectomy 05/2019 History of bowel resection History of ear surgery Family History Family History Other Alzheimer disease Social History Social History Smoking status: Former smoker Tobacco type:
--- NOTE | 2022-09-18 17:30 | PC.NURSE ---
PT UP TO RR WITHOUT DIFFICULTY. UA PROVIDED AND SENT TO LAB. TO AWAIT RESULTS PRIOR TO DC. PT REPORTS PAIN IS GREATLY IMPROVED. WILL CONTINUE TO MONITOR. IVF CONTINUES TO INFUSE WITHOUT DIFFICULTY.
[2022-09-18 17:34] LABS: Appearance Urine Clear (Clear); Bilirubin Urine Negative (Negative); Glucose Urine UA Negative (Negative); Ketones Urine Negative (Negative); Leukocyte Esterase Ur Negative (Negative); Nitrate Urine Negative (Negative); Protein Urine Negative (Negative); Urobilinogen Urine 0.2 mg/dL (0.2-1.0); pH Urine 7.5 (5.0-8.0)
[2022-09-18 17:44] LABS: Add Urine Microscopic? YES; Bacteria Urine None seen /hpf; Blood Urine Trace-Intact (Negative); Color Urine Light Yellow (Yellow); RBC Urine 0-2 /hpf (0-2); Squamous Epithelial Cell Urine Rare /hpf (Few); WBC Urine 0-3 /hpf (0-3)
[2022-09-18 17:45] VITALS: BP 111/68; PULSE 64; RESP 16; TEMP 36.7; O2SAT 98
== END 2022-09-18 17:45 | disposition home or self-care (01) ==
PROVIDERS: Emergency Provider Emergency Medicine; PCP Family Medicine
DX: K50.90 Crohn's disease, unspecified, without complications (principal)
CPT/HCPCS: 36415; 74176; 80053; 81001; 83605; 84484; 85025; 85610; 85730; 93005; 96361; 96374; 96375; 99284; C9113; J2270; J2405; J7030

== ENCOUNTER 2022-09-19 15:39 | Outpatient (CLI) | payer BC, SELFPAY ==
--- NOTE | ~2022-09-19 | CT_ITS ---
EXAMINATION: CT sinus wo con DATE: 09/19/2022 16:01 INDICATION: Chronic sinusitis TECHNIQUE: Computed tomography (CT) of the paranasal sinuses was performed without contrast. Iterativ e reconstruction technique was employed. Exam dose: 303.98 mGy-cm total exam DLP. COMPARISON: None FINDINGS: There is prominent rightward bowing of the nasal septum. There is severe soft tissue swelling of the remnants of the apparently partially resected left middle and inferior nasal turbinates. There is complete opacification of the left frontal sinus and left maxillary sinus and left ostiomeat al unit and extensive opacification of left ethmoid air cells, with some residual aerated left ethmoi d air cells in the mid to posterior aspect. Minimal inferior mucoperiosteal thickening of the right maxillary sinus. The right ostiomeatal unit i s patent. Right frontal sinus, ethmoid air cells and right and left sphenoid sinuses are patent. There is aeration of the limited number of right mastoid air cells. There is prominent effusion of th e left mastoid air cells. IMPRESSION: Prominent rightward bowing of nasal septum Prominent soft tissue swelling of the remnant size apparently resected left middle and inferior nasal turbinates Complete opacification of left frontal sinus, extensive left ethmoid opacification and complete opaci fication of left maxillary sinus and left ostiomeatal unit Effusions of left mastoid air cells Reviewed, dictated and finalized at Location A. Reviewed, dictated and finalized at location A. IMPRESSION: Prominent rightward bowing of nasal septum Prominent soft tissue swelling of the remnant size apparently resected left mid dle and inferior nasal turbinates Complete opacification of left frontal sinus, extensive left ethmoid opacificat ion and complete opacification of left maxillary sinus and left ostiomeatal uni t Effusions of left mastoid air cells
== END 2022-09-19 15:40 | disposition home or self-care (01) ==
LOC: ANHIMG 15:45
PROVIDERS: PCP Family Medicine; Visit Provider Otolaryngology
DX: J01.90 Acute sinusitis, unspecified (principal); J34.89 Other specified disorders of nose and nasal sinuses; J34.2 Deviated nasal septum
CPT/HCPCS: 70486

== ENCOUNTER 2022-10-14 15:49 | Emergency (ER) | payer BC, SELFPAY ==
--- NOTE | ~2022-10-14 | CT_ITS ---
EXAMINATION: CT abdomen pelvis wo con DATE: 10/14/2022 16:44 INDICATION: Generalized abdominal pain/RECTAL BLEEDING TECHNIQUE: Computed tomography (CT) of the abdomen and pelvis was performed without intravenous contr ast. Automated exposure control and iterative reconstruction technique were employed. The dose-length product was 647.07 mGy-cm. COMPARISON: 09/18/2022. FINDINGS: Lower thorax: Lingular and right middle lobe atelectasis/scar Liver: Normal. Biliary/Gallbladder: Gallbladder is normal. No bile duct dilation. Pancreas: No mass or duct dilation. Spleen: Normal. Adrenals:No mass. Kidneys: No suspicious mass, stone, or hydronephrosis. Right renal ectopia. GI tract: No small or large bowel dilation. Surgical suture line in the left colon. Appendix surgical ly absent. Mesentery/Peritoneum: No ascites, mass, or free air. Retroperitoneum: No mass. Atherosclerotic abdominal aortic and/or arterial calcifications. Pelvis: Mild bladder wall thickening. Soft Tissues: Soft tissues and body wall unremarkable. Bones: No acute osseous finding. IMPRESSION: Possible mild cystitis. No other acute abdominopelvic process detected. Reviewed, dictated and finalized at location K. 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
[2022-10-14 16:03] VITALS: BP 121/90; PULSE 65; RESP 16; TEMP 36.6; O2SAT 97
[2022-10-14] MEDS: SODIUM CHLORIDE 0.9% IV 1,000 ML 999 ML IV CONT (16:52)
[2022-10-14] MEDS: ONDANSETRON INJ 4 MG/2 ML VIAL IV PUSH (16:54)
[2022-10-14] MEDS: MORPHINE SULFATE (*CRX) 4 MG/ML INJ 2 MG IV PUSH (16:55)
[2022-10-14] MEDS: PANTOPRAZOLE SODIUM IV 40 MG VIAL IV PUSH (16:56)
[2022-10-14] MEDS: methylPREDNISolone SOD SUCC 125 MG VIAL IV PUSH (16:57)
[2022-10-14 17:18] LABS: Basophils Absolute Auto 0.01 K/mm3 (0.00-0.10); Basophils Percent Auto 0.2 % (0.0-1.0); Hematocrit 40.2 % (35.0-49.0); Hemoglobin 13.5 g/dL (12.0-15.0); Immature Granulocyte Absolute 0.02 K/mm3 (0.00-0.00); Immature Granulocyte Percent A 0.3 % (0.0-0.0); Lymphocytes Absolute Auto 2.06 K/mm3 (1.10-4.50); Lymphocytes Percent Auto 32.8 % (18.0-42.0); Mean Corpuscular HGB Conc 33.6 g/dL (32.0-36.0); Mean Corpuscular Hemoglobin 31.6 pg (27.0-31.0); Mean Corpuscular Volume 94.1 fL (78.0-102.0); Mean Platelet Volume 10.5 fl (9.2-11.8); Monocytes Absolute Auto 0.27 K/mm3 (0.10-0.90); Monocytes Percent Auto 4.3 % (2.0-11.0); Neutrophils Absolute Auto 3.9 K/mm3 (1.7-7.2); Neutrophils Percent Auto 62.4 % (50.0-70.0); Platelet Count Result 186 K/mm3 (150-420); Red Blood Count 4.27 M/mm3 (4.20-5.40); Red Cell Distribution Width 12.9 % (11.6-14.4); White Blood Count 6.3 K/mm3 (4.8-10.8)
[2022-10-14 17:32] LABS: Alanine Aminotransferase < 6 U/L (14-59); Albumin Level 3.2 g/dL (3.4-5.0); Alkaline Phosphatase 49 U/L (46-116); Anion Gap 7 mmol/L (8-16); Aspartate Amino Transferase < 10 U/L (15-37); Bilirubin,Total 0.2 mg/dL (0.00-1.00); Blood Urea Nitrogen 12 mg/dL (7-18); Calcium 8.2 mg/dL (8.5-10.1); Carbon Dioxide 27 mmol/L (21-32); Chloride 107 mmol/L (98-108); Estimated Glomerular Filt Rate 58; Glucose 137 mg/dL (70-99); Lipase 95 U/L (73-393); Osmolality Calculated 293 mOsm/kg (285-295); Potassium 4.7 mmol/L (3.5-5.1); Sodium 141 mmol/L (136-145); Total Protein 6.5 g/dL (6.4-8.2)
[2022-10-14 17:35] LABS: Lactic Acid Reflex 1.3 mmol/L (0.4-2.0)
[2022-10-14 18:21] LABS: Appearance Urine Clear (Clear); Bilirubin Urine Negative (Negative); Glucose Urine UA Negative (Negative); Ketones Urine Negative (Negative); Leukocyte Esterase Ur Negative LEU/UL (Negative); Nitrate Urine Negative (Negative); Protein Urine Negative (Negative); Specific Grav Ur <= 1.005 (1.010-1.020); Urobilinogen Urine 0.2 mg/dL (0.2-1.0); pH Urine 5.5 (5.0-8.0)
[2022-10-14 18:28] LABS: Add Urine Microscopic? YES; Blood Urine Trace-Intact (Negative); Color Urine Light Yellow (Yellow); Squamous Epithelial Cell Urine Occasional /hpf (Few)
--- NOTE | 2022-10-14 19:39 | ED.ABDPAIN ---
HPI - Abdominal Pain General Chief Complaint: Abdominal Pain Stated Complaint: crohns;anal bleeding Time Seen by Provider: 10/14/22 15:51 Source: patient and RN notes reviewed Mode of arrival: ambulatory Limitations: no limitations History of Present Illness MD elicited complaint: abdominal pain Onset (ago): day(s) (1) Pain Consistency: constant Location: diffuse Severity: moderate Pain scale (0-10): 6 Quality: aching Migration to: no migration Exacerbating factors: nothing Relieving factors: medication Associated symptoms: nausea and hematochezia Related Data Home Medications Medication Instructions Recorded Confirmed sucralfate 1 gram tablet 1 g PO TID PRN Acid Reflux 08/02/21 10/23/22 ascorbic acid (vitamin C) 1,000 mg 1 g PO DAILY 05/12/22 10/23/22 tablet (Vitamin C) aspirin 81 mg tablet,delayed 81 mg PO DAILY 05/12/22 10/23/22 release prednisolone acetate 1 % eye 1 drp EACH EYE PRN 05/12/22 10/23/22 drops,suspension tumeric 100 mg-benjy 150 mg-olive 1 cap PO DAILY 05/12/22 10/23/22 50 mg-oreg 150 mg-caprylate capsule vitamin B12 1,000 mcg-folic acid 1 tablet sublingual DAILY 05/12/22 10/23/22 400 mcg sublingual tablet Allergies Allergy/AdvReac Type Severity Reaction Status Date / Time metronidazole [From Flagyl] Allergy Severe GI bleeding Verified 10/23/22 09:14 Sulfa (Sulfonamide Allergy Severe GI Bleeding Verified 10/23/22 09:14 Antibiotics) sulfamethoxazole Allergy Unknown Verified 10/23/22 09:14 [From Bactrim] trimethoprim [From Bactrim] Allergy Unknown Verified 10/23/22 09:14 hydrocodone [From Vicodin] AdvReac Severe Vomiting Verified 10/23/22 09:14 adhesive tape AdvReac Blister Verified 10/23/22 09:14 Review of Systems Review of Systems: All systems reviewed & are unremarkable except as noted in HPI and below Constitutional: Constitutional: Reports no additional constitutional complaints Eyes: Eyes: Reports no additional eye complaints ENT: Reports system reviewed and no additional complaints, except as documented Cardiovascular: Cardiovascular: Reports no additional cardiovascular complaints Respiratory: Respiratory: Reports no additional respiratory complaints Gastrointestinal: Gastrointestinal: Reports abdominal pain Genitourinary: Genitourinary: Reports no additional female genitourinary complaints Musculoskeletal: Musculoskeletal: Reports no additional musculoskeletal complaints Integumentary/Breasts: Skin/Breast: Reports system reviewed and no additional complaints, except as docu Neurologic: Reports system reviewed and no additional complaints, except as documented Psychiatric: Psychiatric: Reports no additional psychiatric complaints Endocrine: Endocrine: Reports no additional endocrine complaints Hematologic/Lymphatic: Hematologic/Lymphatic: Reports no additional hematologic/lymphatic complaints Allergic/Immunologic: Allergic/Immunologic: Reports no additional allergic/immunologic complaints [facility] Past Medical History Medical History Amputated toe of right foot Arnold-Chiari malformation Atrial fibrillation Crohn's disease Epistaxis Goblet cell carcinoid History of CVA (cerebrovascular accident) Portal hypertension Portal vein thrombosis Umbilical endometriosis Uveitis Surgical History Surgical History H/O shoulder surgery H/O sinus surgery H/O surgical amputation of finger History of appendectomy 05/2019 History of bowel resection History of ear surgery Family History Family History Other Alzheimer disease Social History Social History Smoking packs per day: 1 Smoking cigarettes per day: 20.0 Years smoked: 25 Smoking pack-years: 25.00 Smoking status: Former smoker Tobacco type: cigarettes Smoking
[2022-10-14] MEDS: CALCIUM CARBONATE (TUMS) 500 MG (200 MG ELEMENTAL) 1000 MG PO (19:49)
[2022-10-14 19:56] VITALS: BP 128/79; PULSE 60; RESP 20; TEMP 36.4; O2SAT 98
== END 2022-10-14 20:02 | disposition home or self-care (01) ==
PROVIDERS: Emergency Provider Emergency Medicine; PCP Family Medicine
DX: K50.90 Crohn's disease, unspecified, without complications (principal); E83.51 Hypocalcemia
CPT/HCPCS: 36415; 74176; 80053; 81001; 83605; 83690; 85025; 96361; 96365; 96375; 99284; A9270; C9113; J0696; J2270; J2405; J2930; J7030

== ENCOUNTER 2022-11-03 00:25 | Day surgery (SDC) | payer BC, SELFPAY ==
[2022-10-23 09:22] VITALS: BMI 30.8
--- NOTE | 2022-10-23 09:29 | PC.NURSE ---
Report to the Outpatient Waiting Room, entrance under the green pavilion located off [facility], at time _1100_ on date _[phone]_. Planned Procedure Time: 1pm_. Time changes happen often and if your time is changed the preop area will call you the afternoon before. - You and your visitor will be asked to self-screen and do not enter if you have any COVID symptoms. - Only one visitor is requested with a max of two and NO children visitors are allowed at this time. - The patient visitor may be requested to leave or wait in car when not with patient due to distancing restrictions. - A mask is optional within the hospital. Patients may have clear liquids (water, carbonated beverages, clear teas, apple juice) until 3 hours prior to surgery with a maximum of 20 ounces. - No food from midnight until time of surgery Take the following medications with a SIP of water the morning of surgery: ___Prednisone Medications to discontinue per physician __Fareedis per 's recommendation. Stop_all vitamins and supplements [phone] Please no make-up, nail serbian, hairspray, perfume, deodorant, or body powder the day of surgery. No jewelry (including any body piercings) or valuables the day of surgery, leave them at home. Please take a shower or bath the night before, or the morning of, surgery with an antibacterial soap. Wear comfortable, loose fitting clothing. - Jewelry must be removed prior to entering the operating room. Rings and piercings that are not removed may be cut off. - The hospital will not accept responsibility for valuables. - Please leave all valuables, including medications, at home the day of surgery. If you are going home after surgery, a licensed highway truck driver must drive you home. - NO public transportation without another adult if you receive anesthesia. - We recommend that an adult stay with you for 24 hours following discharge. - We also recommend that you do not drive, make important decision, drink alcoholic beverages, or take any drugs that were not prescribed by your health care provider for at least 24 hours after your discharge time. Follow any additional instructions given to you from your surgeon. If you or anyone in your household have experienced Covid symptoms in the past week, please notify your surgeon or the nurse liaison at the phone number below for possible testing. Telephone instructions given to __Patient and asked if any additional questions and then verbalized understanding. Patient advised to call surgeon office or pre surgery nurse liaison [phone] if any additional questions.
--- NOTE | 2022-11-02 17:23 | PM.IMHP ---
H&P: HPI History of Present Illness Date/Time: 11/02/22 17:23 Chief Complaint: chronic sinus Narrative: planned surgical procedure Review of Systems Review of Systems: All systems reviewed & are unremarkable except as noted in HPI and below PMFSH Past Medical History Medical History Amputated toe of right foot Arnold-Chiari malformation Atrial fibrillation Crohn's disease Epistaxis Goblet cell carcinoid History of CVA (cerebrovascular accident) Portal hypertension Portal vein thrombosis Umbilical endometriosis Uveitis Surgical History Surgical History H/O shoulder surgery H/O sinus surgery H/O surgical amputation of finger History of appendectomy 05/2019 History of bowel resection History of ear surgery Family History Family History Other Alzheimer disease Social History Social History Smoking packs per day: 1 Smoking cigarettes per day: 20.0 Years smoked: 25 Smoking pack-years: 25.00 Smoking status: Former smoker Tobacco type: cigarettes Smoking end date: 10/23/15 Additional smoking assessment comments: Quit 2015. 35pk yr history Alcohol intake: never Substance use: current Substance use type: marijuana Other substance usage details: Marijuana tea daily Spiritual care concerns: No Meds Home Medications and Allergies Home Medications Medication Instructions Recorded Confirmed Type sucralfate 1 gram tablet 1 g PO TID PRN Acid Reflux 08/02/21 10/26/22 History adalimumab 40 mg/0.8 mL See Rx Instructions subcut .Every 10/24/21 10/26/22 Rx subcutaneous pen kit (Humira Pen) other Week #2 ea pantoprazole 40 mg tablet,delayed 40 mg PO QAM #90 tabs 01/09/22 10/26/22 Rx release atorvastatin 40 mg tablet 40 mg PO DAILY #90 tabs 03/22/22 10/26/22 Rx ascorbic acid (vitamin C) 1,000 mg 1 g PO DAILY 05/12/22 10/26/22 History tablet (Vitamin C) aspirin 81 mg tablet,delayed 81 mg PO DAILY 05/12/22 10/26/22 History release prednisolone acetate 1 % eye 1 drp EACH EYE PRN 05/12/22 10/26/22 History drops,suspension tumeric 100 mg-benjy 150 mg-olive 1 cap PO DAILY 05/12/22 10/26/22 History 50 mg-oreg 150 mg-caprylate capsule vitamin B12 1,000 mcg-folic acid 1 tablet sublingual DAILY 05/12/22 10/26/22 History 400 mcg sublingual tablet pfraebad-rmltglmbm-bauapuanh 3.5 4 drp otic (ear) Q8H #10 mL 06/06/22 10/26/22 Rx mg/mL-10,000 unit/mL-1 % ear solution paroxetine HCl 10 mg tablet 10 mg PO HS #90 tabs 06/14/22 10/26/22 Rx apixaban 5 mg tablet (Eliquis) 5 mg PO BID #60 tabs 06/29/22 10/26/22 Rx mupirocin 2 % topical ointment 1 applic topical BID #22 grams 09/13/22 10/26/22 Rx acetaminophen 325 mg capsule 650 mg PO Q8H PRN pain #20 caps 09/18/22 10/26/22 Rx (Tylenol) ondansetron 4 mg disintegrating 4 mg PO Q8H #14 tabs 09/18/22 10/26/22 Rx tablet cholecalciferol (vitamin D3) 1,250 1,250 mcg PO WEEKLY #12 caps 09/21/22 10/26/22 Rx mcg (50,000 unit) capsule rimegepant 75 mg disintegrating 75 mg PO ONCE PRN migraine 10/04/22 10/26/22 Rx tablet (Nurtec ODT) headache #8 tabs tramadol 50 mg tablet 50 mg PO Q4H PRN pain #4 tabs 10/14/22 10/26/22 Rx prednisone 10 mg tablet 10 mg PO DAILY 10/24/22 10/26/22 History alprazolam 0.5 mg tablet 0.5 mg PO DAILY PRN anxiety #20 10/31/22 Rx tabs Allergies Allergy/AdvReac Type Severity Reaction Status Date / Time metronidazole [From Flagyl] Allergy Severe GI bleeding Verified 10/26/22 15:29 Sulfa (Sulfonamide Allergy Severe GI Bleeding Verified 10/26/22 15:29 Antibiotics) sulfamethoxazole Allergy Unknown Verified 10/26/22 15:29 [From Bactrim] trimethoprim [From Bactrim] Allergy Unknown Verified 10/26/22 15:29 hydrocodone [From Vicodin] AdvReac Severe Vomiting Verified
[2022-11-03] VITALS (10 sets, daily range): BP systolic 112–136; BP diastolic 59–97; PULSE 72–90; RESP 12–14; TEMP 36–36.1; O2SAT 93–100
--- NOTE | 2022-11-03 07:23 | WPDHPUPDATE1 ---
History and Physical Update Update Date/Time: 11/03/22 07:23 History and Physical has been reviewed, including an updated exam of the patient. There are NO changes in the patient's condition. Risks, benefits, and alternatives have been discussed and questions answered. Patient agrees to proceed with procedure. Tube removal replacement as well, left sided ess sparing the sphenoid
[2022-11-03] MEDS: ACETAMINOPHEN 500 MG TABLET 1000 MG PO (11:05)
--- NOTE | 2022-11-03 11:25 | WPDANESEPPF ---
Anes - Initial Pre Proc Eval Procedure: Operation Date: 11/03/22 12:00 Proposed Procedures p Image Guided Left Middle Turbinectomy, Left Maxillary Antrostomy with Tissue Removal, Left Frontal Sinusotomy, Left Total Ethmoidectomy, Right Myringotomy Tube Removal, - Lucho Peralta MD s Bilateral Myringotomy, Insertion Of Tubes - Lucho Peralta MD Date/Time: 11/03/22 11:25 Surgeon: Lucho Peralta MD Pre Op Diagnosis: chronic sinusitis Patient Data Age: 51 Gender: F Height: 1.65 m Weight: 88.25 kg Last Vital Signs Temp 36.0 C L 11/03/22 10:56 Pulse 73 11/03/22 10:56 Resp 14 11/03/22 10:56 BP 130/76 11/03/22 10:56 Pulse Ox 99 11/03/22 10:56 O2 Del Method Room Air 11/03/22 10:56 Allergies Allergy/AdvReac Type Severity Reaction Status Date / Time metronidazole [From Flagyl] Allergy Severe GI bleeding Verified 11/03/22 10:51 Sulfa (Sulfonamide Allergy Severe GI Bleeding Verified 11/03/22 10:51 Antibiotics) sulfamethoxazole Allergy Unknown Verified 11/03/22 10:51 [From Bactrim] trimethoprim [From Bactrim] Allergy Unknown Verified 11/03/22 10:51 hydrocodone [From Vicodin] AdvReac Severe Vomiting Verified 11/03/22 10:51 adhesive tape AdvReac Blister Verified 11/03/22 10:51 Home Medications Medication Instructions Recorded Confirmed Type sucralfate 1 gram tablet 1 g PO TID PRN Acid Reflux 08/02/21 10/26/22 History adalimumab 40 mg/0.8 mL See Rx Instructions subcut .Every 10/24/21 10/26/22 Rx subcutaneous pen kit (Humira Pen) other Week #2 ea pantoprazole 40 mg tablet,delayed 40 mg PO QAM #90 tabs 01/09/22 10/26/22 Rx release atorvastatin 40 mg tablet 40 mg PO DAILY #90 tabs 03/22/22 10/26/22 Rx ascorbic acid (vitamin C) 1,000 mg 1 g PO DAILY 05/12/22 10/26/22 History tablet (Vitamin C) aspirin 81 mg tablet,delayed 81 mg PO DAILY 05/12/22 10/26/22 History release prednisolone acetate 1 % eye 1 drp EACH EYE PRN 05/12/22 10/26/22 History drops,suspension tumeric 100 mg-benjy 150 mg-olive 1 cap PO DAILY 05/12/22 10/26/22 History 50 mg-oreg 150 mg-caprylate capsule vitamin B12 1,000 mcg-folic acid 1 tablet sublingual DAILY 05/12/22 10/26/22 History 400 mcg sublingual tablet civognxz-dmsmsdkac-vdsxgljzg 3.5 4 drp otic (ear) Q8H #10 mL 06/06/22 10/26/22 Rx mg/mL-10,000 unit/mL-1 % ear solution paroxetine HCl 10 mg tablet 10 mg PO HS #90 tabs 06/14/22 10/26/22 Rx apixaban 5 mg tablet (Eliquis) 5 mg PO BID #60 tabs 06/29/22 10/26/22 Rx mupirocin 2 % topical ointment 1 applic topical BID #22 grams 09/13/22 10/26/22 Rx acetaminophen 325 mg capsule 650 mg PO Q8H PRN pain #20 caps 09/18/22 10/26/22 Rx (Tylenol) ondansetron 4 mg disintegrating 4 mg PO Q8H #14 tabs 09/18/22 10/26/22 Rx tablet cholecalciferol (vitamin D3) 1,250 1,250 mcg PO WEEKLY #12 caps 09/21/22 10/26/22 Rx mcg (50,000 unit) capsule rimegepant 75 mg disintegrating 75 mg PO ONCE PRN migraine 10/04/22 10/26/22 Rx tablet (Nurtec ODT) headache #8 tabs tramadol 50 mg tablet 50 mg PO Q4H PRN pain #4 tabs 10/14/22 10/26/22 Rx prednisone 10 mg tablet 10 mg PO DAILY 10/24/22 11/03/22 History alprazolam 0.5 mg tablet 0.5 mg PO DAILY PRN anxiety #20 10/31/22 Rx tabs Patient hx anesthesia problems: none Family hx anesthesia problems: post op nausea/vomiting Results Review: All pre-operative results and documents have been reviewed as part of the pre-operative evaluation. [facility] Past Medical History Medical History Amputated toe of right foot Arnold-Chiari malformation Atrial fibrillation Crohn's disease Epistaxis Goblet cell carcinoid History of CVA (cerebrovascular accident) Portal hypertension Portal vein thrombosis Umbilical endometriosis Uveitis Surgical History Surgical History H/O shoulder surgery H/O sinus surgery H/O surgical amputation of finger History of ap
[2022-11-03] MEDS: ceFAZolin 2 GM/D5W 50 ML 2 GM/50 ML BAG IVPB (11:45)
[2022-11-03] MEDS: CIPROFLOXACIN HCL 0.3% OP SOLN 2.5 ML BTL 4 DROP EACH EAR (12:00)
[2022-11-03] MEDS: OXYMETAZOLINE HCL 0.05% NAS 15 ML BTL (*BKC) 1 SPRAY NASAL (12:41)
[2022-11-03] MEDS: LACTATED RINGERS 1,000 ML 30 ML IV CONT ×2 (13:28)
[2022-11-03] MEDS: fentaNYL CITRATE INJ (*CRX) 100 MCG/2 ML VIAL 25 MCG IV PUSH ×4 (13:32→14:20)
--- NOTE | 2022-11-03 13:56 | W.PM.PROC2 ---
Procedure Note - Detailed Date of Procedure 11/03/22 Pre-op Diagnosis chronic sinusitisLeft-sided pie a mucocele nasal crusting Post-op Diagnosis Same Procedure Performed left-sided middle turbinectomy excision mucocele frontal sinusotomy, maxillary antrostomy with tissue removal total ethmoidectomy Surgeon Lucho Peralta MD Anesthesia General Indications see above Findings left pyogenic bio mucoceles bleeding throughout the procedure all the abnormal tissue remained very early really really osteotomy maxillary sinus. Disease tissue and all of them Description of Procedure patient identified consent verified. Patient brought operating. Time-out performed. General anesthesia induced endotracheal tube secured. Patient prepped draped position 2nd time-out performed image guidance initiated confirmed Afrin-soaked pledgets placed on left side removed. Left-sided viewed big mucocele very obvious opened with straight through cuts it removed with microdebrider throughout the procedure hemostasis achieved using intermittent application of Afrin-soaked pledgets. Maxillary antrostomy performed with angled scopes image guided suctions as well as rad 40 rad 60. And at backbiter. Open nicely microdebrider and Kerrison utilized to open the remainder of the cells frontal sinus opened with house min Hosemann punch and image I performed all dictated portions procedure. Middle turbinate was excised during excision of the Jose A a mucocele. Stumps all cauterized with Bovie suction electrocautery. Total blood loss 100 cc care the patient given Anesthesiology I performed all dictated portions procedure. No complications. Estimated Blood Loss -100.0 Drains No Packing Yes (Novapak) Pathology None sent Complications No immediate complications Condition Stable Disposition PACU
[2022-11-03] MEDS: ONDANSETRON INJ 4 MG/2 ML VIAL IV PUSH (14:40)
[2022-11-03] MEDS: oxyCODONE HCL (*CRX) 5 MG TAB IR PO (16:02)
[2022-11-03] MEDS: ONDANSETRON HCL ODT 4 MG TABLET PO (16:06)
[2022-11-03] MEDS: SCOPOLAMINE 1.5 MG PATCH TRANSDERM (16:06)
--- NOTE | 2022-11-03 16:16 | SUR.PHASEII ---
DR. COUCH CALLED RE: EAR DROPS.
== END 2022-11-03 16:21 | disposition home or self-care (01) ==
PROVIDERS: PCP Family Medicine; Visit Provider Otolaryngology
PROC: (CPT 31267; principal; 2022-11-03 12:00)
PROC: (CPT 31267; 2022-11-03 12:00)
DX: J32.9 Chronic sinusitis, unspecified (principal); J34.1 Cyst and mucocele of nose and nasal sinus; J34.89 Other specified disorders of nose and nasal sinuses; I48.91 Unspecified atrial fibrillation; K50.90 Crohn's disease, unspecified, without complications; K76.6 Portal hypertension; Z86.73 Personal history of transient ischemic attack (TIA), and cerebral infarction without residual deficits; Z87.891 Personal history of nicotine dependence; E66.9 Obesity, unspecified; Z68.32 Body mass index [BMI] 32.0-32.9, adult; Z79.01 Long term (current) use of anticoagulants; Z79.82 Long term (current) use of aspirin; Z79.620 Long term (current) use of immunosuppressive biologic; F12.90 Cannabis use, unspecified, uncomplicated
CPT/HCPCS: 31267; 31253; 30999; 61782; A9270; J0690; J1100; J1170; J2250; J2405; J2704; J2710; J3010; J7120

== ENCOUNTER 2022-11-08 07:48 | Outpatient (CLI) | payer BC, SELFPAY | END 2022-11-08 07:49 | disposition home or self-care (01) | LOC: CHSIMG 07:49 | PROVIDERS: PCP Family Medicine; Visit Provider Family Medicine | DX: N80.C2 Endometriosis of the umbilicus (principal) | CPT/HCPCS: 99199 ==

== ENCOUNTER 2022-11-17 08:02 | Outpatient (CLI) | payer BC, SELFPAY ==
--- NOTE | ~2022-11-17 | US_ITS ---
EXAMINATION: US abdomen complete DATE: 11/17/2022 08:42 INDICATION: Right upper quadrant pain TECHNIQUE: Multiple grayscale and Doppler ultrasound images of the abdomen were obtained. COMPARISON: None available FINDINGS: Bowel gas obscures visualization of the pancreas. The visualized portions of the pancreas a re unremarkable. The liver is normal with normal echogenicity and echotexture. No surface nodularity. Normal hepatopetal flow in the main portal vein. The gallbladder is normal with no abnormal wall thi ckening, pericholecystic fluid or stones. The normal common bile duct measures 4 mm. There was no son ographic Jo sign. The visualized portions of the aorta and inferior vena cava are normal. The right kidney measures 11.7 x 4.2 x 3.9 cm. The left kidney measures 10.3 x 4.5 x 5.2 cm. The kidn eys demonstrate normal parenchymal echogenicity. There is no hydronephrosis. The spleen is normal in appearance and measures 8.7 cm. IMPRESSION: 1. No sonographic correlate for the patient's symptoms. Reviewed, dictated and finalized at location B. INTEGRATION DEVELOPER
== END 2022-11-17 08:03 | disposition home or self-care (01) ==
LOC: CHSIMG 08:04
PROVIDERS: PCP Family Medicine; Visit Provider Family Medicine
DX: R10.11 Right upper quadrant pain (principal)
CPT/HCPCS: 76700

== ENCOUNTER 2022-12-08 10:45 | Outpatient (CLI) | payer BC, SELFPAY ==
--- NOTE | ~2022-12-08 | MR_ITS ---
EXAMINATION: MR abdomen wo/w con DATE: 12/08/2022 12:13 INDICATION: Abdominal pain. Crohn disease. TECHNIQUE: Magnetic resonance imaging (MRI) of the abdomen was performed without and with 18 mL Multi Dejon intravenous contrast. COMPARISON: CT abdomen and pelvis 10/14/2022 FINDINGS: The liver is normal. The gallbladder is normal in size. The spleen is normal. There are approximately 3 cystic lesions of the pancreas measuring up to 6 mm. The adrenal glands and kidneys are normal. Th ere are no dilated loops of bowel. There is an ileocolic anastomosis. There is hyperenhancement of th e wall of the distal 2 cm of ileum. There are no pathologically enlarged lymph nodes. There is no macy e intraperitoneal fluid. IMPRESSION: 1. Wall hyperenhancement of the distal 2 cm of ileum, consistent with Crohn disease. No stricture. 2. Cystic lesions of the pancreas measuring up to 6 mm. The differential diagnosis includes pseudocys t, intraductal papillary mucinous neoplasm (IPMN), mucinous cystic neoplasm (MCN), serous cystadenoma , and neuroendocrine tumor. Abdomen MRI without and with contrast is recommended in one year. Reviewed, dictated and finalized at location A. TO SEED CUTTER IMPRESSION: 1. Wall hyperenhancement of the distal 2 cm of ileum, consistent with Crohn dis ease. No stricture. 2. Cystic lesions of the pancreas measuring up to 6 mm. The differential diagno sis includes pseudocyst, intraductal papillary mucinous neoplasm (IPMN), mucino us cystic neoplasm (MCN), serous cystadenoma, and neuroendocrine tumor. Abdomen MRI without and with contrast is recommended in one year.
== END 2022-12-08 10:46 | disposition home or self-care (01) ==
LOC: ANHIMG 10:46
PROVIDERS: PCP Family Medicine; Visit Provider Family Medicine
DX: K50.90 Crohn's disease, unspecified, without complications (principal); R10.11 Right upper quadrant pain
CPT/HCPCS: 74183; A9577

== ENCOUNTER → 2023-01-17 10:22 | Outpatient (CLI) | payer BC, SELFPAY ==
--- NOTE | ~2023-01-17 | CT_ITS ---
EXAMINATION: CT sinus wo con DATE: 01/17/2023 10:50 INDICATION: Chronic sinusitis TECHNIQUE: Computed tomography (CT) of the paranasal sinuses was performed without intravenous contra st. The dose-length product was 409.21 mGy-cm. Automated exposure control and iterative reconstructio n technique were employed. COMPARISON: CT dated 09/19/2022 FINDINGS: There are changes of left ethmoidectomy. There is complete soft tissue opacification of the left maxillary sinus. There is mucoperiosteal reaction. There is mucosal thickening of the ethmoid a nd left sphenoid sinus. Rightward nasal septal deviation. Mastoids are pneumatized. IMPRESSION: 1. Moderate sinusitis primarily involving the left maxillary and ethmoid sinuses. Reviewed, dictated and finalized at location B. MER MACHINE IMPRESSION: 1. Moderate sinusitis primarily involving the left maxillary and ethmoid sinuse s.
== END ==
PROVIDERS: PCP Family Medicine; Visit Provider Otolaryngology
DX: J32.9 Chronic sinusitis, unspecified (principal)
CPT/HCPCS: 70486

== ENCOUNTER → 2023-05-29 11:05 | Outpatient (CLI) | payer BC, SELFPAY ==
--- NOTE | ~2023-05-29 | CT_ITS ---
CT of the Abdomen and Pelvis: Indication: Abdominal pain Technique: 2.5 mm axial scans were obtained through the abdomen and pelvis following intravenous adm inistration of 100 cc of Omnipaque 350. Dose reduction technique was used on this scan by utilizing a utomated exposure control and iterative reconstruction technique. The dose-length product (DLP) was 1 059.35 mGy-cm. COMPARISON: 10/14/2022 Findings: Scans through the lung bases are unremarkable. The liver, spleen, pancreas, gallbladder, adrenals and kidneys are within normal limits. No evidence of aortic aneurysm. No lymphadenopathy. No bowel obstruction or bowel wall thickening. There is no evidence to suggest acute appendicitis. Nava ture line noted at the cecum/ascending colon. Images through the pelvis were performed. Urinary bladder unremarkable. No adnexal mass seen. No asci yoshi. Impression: No significant abnormalities seen. Reviewed, dictated and finalized at [facility]. Impression: No significant abnormalities seen.
== END ==
PROVIDERS: PCP Family Medicine; Visit Provider Family Medicine
DX: R10.9 Unspecified abdominal pain (principal); K50.90 Crohn's disease, unspecified, without complications
CPT/HCPCS: 74177; Q9967

== ENCOUNTER 2023-06-28 18:31 | Emergency (ER) | payer BC, SELFPAY ==
[2023-06-28 18:37] VITALS: BP 135/77; PULSE 95; TEMP 36.6; O2SAT 97
--- NOTE | 2023-06-28 18:42 | ED.GENADULT ---
HPI - General Adult General Chief complaint: Wound/Laceration Stated complaint: cut on middle finger Time Seen by Provider: 06/28/23 18:41 History of Present Illness HPI narrative: 52yo woman with afib on aspirin and apixaban presents with laceration to her left hand dorsal middle knuckle from a piece of broken glass that she had just finished cleaning. Intact ROM of the associated finger. Related Data Home Medications Medication Instructions Recorded Confirmed sucralfate 1 gram tablet 1 g PO TID PRN Acid Reflux 08/02/21 06/27/23 ascorbic acid (vitamin C) 1,000 mg 1 g PO DAILY 05/12/22 06/27/23 tablet (Vitamin C) aspirin 81 mg tablet,delayed 81 mg PO DAILY 05/12/22 06/27/23 release prednisolone acetate 1 % eye 1 drp EACH EYE PRN 05/12/22 06/27/23 drops,suspension tumeric 100 mg-benjy 150 mg-olive 1 cap PO DAILY 05/12/22 06/27/23 50 mg-oreg 150 mg-caprylate capsule vitamin B12 1,000 mcg-folic acid 1 tablet sublingual DAILY 05/12/22 06/27/23 400 mcg sublingual tablet colestipol 1 gram tablet 1 g PO ONCE 02/13/23 06/27/23 pregabalin 50 mg capsule 50 mg PO BID 06/27/23 06/27/23 Allergies Allergy/AdvReac Type Severity Reaction Status Date / Time metronidazole [From Flagyl] Allergy Severe GI bleeding Verified 06/28/23 19:02 Sulfa (Sulfonamide Allergy Severe GI Bleeding Verified 06/28/23 19:02 Antibiotics) sulfamethoxazole Allergy Unknown Verified 06/28/23 19:02 [From Bactrim] trimethoprim [From Bactrim] Allergy Unknown Verified 06/28/23 19:02 hydrocodone [From Vicodin] AdvReac Severe Vomiting Verified 06/28/23 19:02 adhesive tape AdvReac Blister Verified 06/28/23 19:02 oxycodone Allergy Severe hallucinate Uncoded 06/28/23 19:02 Review of Systems Review of Systems: All systems reviewed & are unremarkable except as noted in HPI and below Constitutional: Constitutional: Denies chills and Denies fever(s) ENT: Denies dysphagia Cardiovascular: Cardiovascular: Denies chest pain Respiratory: Respiratory: Denies dyspnea [facility] Past Medical History Medical History Abdominal pain Amputated toe of right foot Arnold-Chiari malformation Atrial fibrillation Blepharitis Conjunctivitis Crohn's disease Epistaxis Goblet cell carcinoid History of CVA (cerebrovascular accident) Portal hypertension Portal vein thrombosis Umbilical endometriosis Uveitis Surgical History Surgical History H/O shoulder surgery H/O sinus surgery H/O surgical amputation of finger History of abdominal surgery History of appendectomy 05/2019 History of bowel resection History of ear surgery Family History Family History Other Alzheimer disease Social History Social History Smoking packs per day: 1 Smoking cigarettes per day: 20.0 Years smoked: 25 Smoking pack-years: 25.00 Smoking status: Former smoker Tobacco type: cigarettes Smoking end date: 10/23/15 Additional smoking assessment comments: Quit 2015. 35pk yr history Alcohol intake: never Substance use: current Substance use type: marijuana Other substance usage details: Marijuana tea daily Living arrangements: with family Occupation/Education: retired Spiritual care concerns: No Exam Const: General: healthy appearing and no acute distress Nutritional Appearance: well nourished Eyes: Conjunctivae: conjunctivae normal Resp: Effort & Inspection: normal respiratory effort Cardio: Rate: regular rate Skin: General skin exam: normal color, no jaundice and no pallor Other: two irregular skin avulsion tissue flaps, lac connected with total length 5 cm, to the dorsum of the left hand over the 3rd MCP joint, full thickness dermis, no arthrotomy. Intact ROM of the finger joint. Neuro: General:
[2023-06-28 18:57] VITALS: BP 135/77; PULSE 95; RESP 17; TEMP 36.6; O2SAT 97
[2023-06-28 20:45] VITALS: BP 133/71; PULSE 88; RESP 20; TEMP 36.6; O2SAT 98
== END 2023-06-28 20:51 | disposition home or self-care (01) ==
PROVIDERS: Emergency Provider Emergency Medicine; PCP Family Medicine
DX: S61.412A Laceration without foreign body of left hand, initial encounter (principal); I48.91 Unspecified atrial fibrillation; Z79.82 Long term (current) use of aspirin; Z79.01 Long term (current) use of anticoagulants; Z86.73 Personal history of transient ischemic attack (TIA), and cerebral infarction without residual deficits; Z87.891 Personal history of nicotine dependence; W25.XXXA Contact with sharp glass, initial encounter
CPT/HCPCS: 12002; 99282

== ENCOUNTER 2023-07-26 09:54 | Outpatient (CLI) | payer BC, SELFPAY ==
[2023-07-26 10:10] LABS: Basophils Absolute Auto 0.05 K/mm3 (0.00-0.10); Basophils Percent Auto 0.5 % (0.0-1.0); Eosinophils Absolute Auto 0.17 K/mm3 (0.02-0.50); Eosinophils Percent Auto 1.7 % (1.0-6.0); Hemoglobin 12.3 g/dL (12.0-15.0); Immature Granulocyte Absolute 0.06 K/mm3 (0.00-0.00); Immature Granulocyte Percent A 0.6 % (0.0-0.0); Lymphocytes Absolute Auto 3.62 K/mm3 (1.10-4.50); Lymphocytes Percent Auto 35.3 % (18.0-42.0); Mean Corpuscular HGB Conc 32.4 g/dL (32.0-36.0); Mean Corpuscular Hemoglobin 31.1 pg (27.0-31.0); Mean Corpuscular Volume 96.2 fL (78.0-102.0); Mean Platelet Volume 9.7 fl (9.2-11.8); Monocytes Absolute Auto 0.66 K/mm3 (0.10-0.90); Monocytes Percent Auto 6.4 % (2.0-11.0); Neutrophils Absolute Auto 5.7 K/mm3 (1.7-7.2); Neutrophils Percent Auto 55.5 % (50.0-70.0); Platelet Count Result 327 K/mm3 (150-420); Red Blood Count 3.95 M/mm3 (4.20-5.40); Red Cell Distribution Width 13.8 % (11.6-14.4); White Blood Count 10.3 K/mm3 (4.8-10.8)
[2023-07-26 10:29] LABS: Partial Thromboplastin Time 33.4 SEC (23.90-30.70); Prothrombin Time 10.7 Seconds (9.50-12.10)
[2023-07-26 10:38] LABS: Anion Gap 8 mmol/L (8-16); Blood Urea Nitrogen 12 mg/dL (7-18); Carbon Dioxide 30 mmol/L (21-32); Chloride 101 mmol/L (98-108); Estimated Glomerular Filt Rate > 60; Glucose 96 mg/dL (70-99); Osmolality Calculated 287 mOsm/kg (285-295); Sodium 139 mmol/L (136-145)
[2023-07-26 10:39] LABS: Amylase 28 U/L (25-115)
== END 2023-07-26 09:55 | disposition home or self-care (01) ==
LOC: CHSLAB 09:57
PROVIDERS: PCP Family Medicine; Visit Provider Anesthesiology
DX: R10.9 Unspecified abdominal pain (principal); K74.60 Unspecified cirrhosis of liver; Z98.890 Other specified postprocedural states
CPT/HCPCS: 36415; 80048; 82150; 85025; 85610; 85730

== ENCOUNTER 2023-07-31 00:30 | Day surgery (SDC) | payer BC, SELFPAY ==
[2023-07-19 15:11] VITALS: BMI 33.3
--- NOTE | 2023-07-19 16:05 | PC.NURSE ---
Report to the Outpatient Waiting Room, entrance under the green pavilion located off [facility], at time _1030 on date _07/31/23_. Planned Procedure Time: __1230 . Time changes happen often and if your time is changed the preop area will call you the afternoon before. - You and your visitor will be asked to self-screen and do not enter if you have any COVID symptoms. - Patients may have clear liquids (water, carbonated beverages, clear teas, apple juice) until 3 hours prior to surgery with a maximum of 20 ounces. - No food from midnight until time of surgery Take the following medications with a SIP of water the morning of surgery: ___PAROXETINE, PREGABALIN, PREDNISONE, AND ALPRAZOLAM DO NOT STOP ANY OF YOUR OTHER PRESCRIPTION MEDICATIONS PRIOR TO SURGERY ?EXCEPT THE FOLLOWING Medications to discontinue per physician __ELIQUIS D/C 07/27/23; THEN BEGIN [place] PER YOUR INSTRUCTIONS__CONT. ASA PER INSTRUCTIONS. D/C VITAMINS & SUPPLEMENTS 07/27/23 Date to take last dose Please no make-up, nail yakut, hairspray, perfume, deodorant, or body powder the day of surgery. No jewelry (including any body piercings) or valuables the day of surgery, leave them at home. Please take a shower or bath the night before, or the morning of, surgery with an antibacterial soap. Wear comfortable, loose fitting clothing. - Jewelry must be removed prior to entering the operating room. Rings and piercings that are not removed may be cut off. - The hospital will not accept responsibility for valuables. - Please leave all valuables, including medications, at home the day of surgery. If you are going home after surgery, a licensed local company intermodal truck driver must drive you home. - NO public transportation without another adult if you receive anesthesia. - We recommend that an adult stay with you for 24 hours following discharge. - We also recommend that you do not drive, make important decision, drink alcoholic beverages, or take any drugs that were not prescribed by your health care provider for at least 24 hours after your discharge time. Follow any additional instructions given to you from your surgeon. If you or anyone in your household have experienced Covid symptoms in the past week, please notify your surgeon or the nurse liaison at the phone number below for possible testing. Telephone instructions given to _ALEXANDRU___and asked if any additional questions and then verbalized understanding. Patient advised to call surgeon office or pre surgery nurse liaison [phone] if any additional questions.
--- NOTE | 2023-07-30 17:38 | PM.IMHP ---
H&P: HPI History of Present Illness Date/Time: 07/30/23 17:38 Chief Complaint: chronic sinusitis Right otitis media eustachian tube dysfunction Narrative: planned procedure Review of Systems Review of Systems: All systems reviewed & are unremarkable except as noted in HPI and below PMFSH Past Medical History Medical History Abdominal pain Amputated toe of right foot Arnold-Chiari malformation Atrial fibrillation Blepharitis Conjunctivitis Crohn's disease Epistaxis Goblet cell carcinoid History of CVA (cerebrovascular accident) Laceration Portal hypertension Portal vein thrombosis Umbilical endometriosis Uveitis Visit for suture removal Surgical History Surgical History H/O shoulder surgery H/O sinus surgery H/O surgical amputation of finger History of abdominal surgery History of appendectomy 05/2019 History of bowel resection History of ear surgery Family History Family History Other Alzheimer disease Social History Social History Smoking packs per day: 2 Smoking cigarettes per day: 40.0 Years smoked: 20 Smoking pack-years: 40.00 Smoking status: Former smoker Tobacco type: cigarettes Smoking end date: 10/23/15 Additional smoking assessment comments: Quit 2015. 35pk yr history Alcohol intake: never Substance use: former Substance use type: marijuana and amphetamines Other substance usage details: Marijuana tea daily Last use: 2014 Living arrangements: with family Occupation/Education: retired Spiritual care concerns: No Meds Home Medications and Allergies Home Medications Medication Instructions Recorded Confirmed Type sucralfate 1 gram tablet 1 g PO TID PRN Acid Reflux 08/02/21 07/25/23 History adalimumab 40 mg/0.8 mL See Rx Instructions subcut .Every 10/24/21 07/25/23 Rx subcutaneous pen kit (Humira Pen) other Week #2 ea pantoprazole 40 mg tablet,delayed 40 mg PO QAM #90 tabs 01/09/22 07/25/23 Rx release atorvastatin 40 mg tablet 40 mg PO DAILY #90 tabs 03/22/22 07/25/23 Rx ascorbic acid (vitamin C) 1,000 mg 1 g PO DAILY 05/12/22 07/25/23 History tablet (Vitamin C) aspirin 81 mg tablet,delayed 81 mg PO DAILY 05/12/22 07/25/23 History release prednisolone acetate 1 % eye 1 drp EACH EYE PRN PRN CROHN'S EYES 05/12/22 07/25/23 History drops,suspension tumeric 100 mg-benjy 150 mg-olive 1 cap PO DAILY 05/12/22 07/25/23 History 50 mg-oreg 150 mg-caprylate capsule vitamin B12 1,000 mcg-folic acid 1 tablet sublingual DAILY 05/12/22 07/25/23 History 400 mcg sublingual tablet mupirocin 2 % topical ointment 1 applic topical BID #22 grams 09/13/22 07/25/23 Rx acetaminophen 325 mg capsule 650 mg PO Q8H PRN pain #20 caps 09/18/22 07/25/23 Rx (Tylenol) rimegepant 75 mg disintegrating 75 mg PO ONCE PRN migraine 10/04/22 07/25/23 Rx tablet (Nurtec ODT) headache #8 tabs colestipol 1 gram tablet 1 g PO ONCE 02/13/23 07/25/23 History paroxetine HCl 40 mg tablet (Paxil) 40 mg PO DAILY #90 tabs 06/20/23 07/25/23 Rx pregabalin 50 mg capsule 50 mg PO BID 06/27/23 07/25/23 History tramadol 50 mg tablet 50 mg PO Q4H PRN pain #30 tabs 07/09/23 07/25/23 Rx apixaban 5 mg tablet (Eliquis) See Rx Instructions .Route 07/10/23 07/25/23 Rx .COMPLEX #60 tabs alprazolam 0.5 mg tablet 0.25 mg PO DAILY PRN anxiety 07/19/23 07/25/23 History dicyclomine 10 mg capsule 10 mg PO DAILY 07/19/23 07/25/23 History hydrocortisone acetate 25 mg 25 mg RECTAL DAILY PRN CROHN'S EXAC 07/19/23 07/25/23 History rectal suppository mercaptopurine 50 mg tablet 50 mg PO DAILY 07/19/23 07/25/23 History ondansetron 4 mg disintegrating 4 mg PO Q8H PRN Nausea And Vomiting 07/19/23 07/25/23 History tablet sumatriptan succinate 50 mg tablet 50 mg PO O
[2023-07-31] VITALS (9 sets, daily range): BP systolic 113–151; BP diastolic 55–82; PULSE 70–91; RESP 12–18; TEMP 36.4; O2SAT 92–100
--- NOTE | 2023-07-31 07:38 | WPDHPUPDATE1 ---
History and Physical Update Update Date/Time: 07/31/23 07:38 History and Physical has been reviewed, including an updated exam of the patient. There are NO changes in the patient's condition. Risks, benefits, and alternatives have been discussed and questions answered. Patient agrees to proceed with procedure.
--- NOTE | 2023-07-31 14:12 | WPDANESEPPF ---
Anes - Initial Pre Proc Eval Procedure: Operation Date: 07/31/23 12:30 Proposed Procedures p Image Guided Left Maxillary Antrostomy with Tissue Removal, Left Kevin Shahzad Procedure, Left Frontal Sinusotomy with Tissue Removal, - Lucho Peralta MD s Right Myringotomy Insertion with T-Tube - Lucho Peralta MD Date/Time: 07/31/23 14:12 Surgeon: Lucho Peralta MD Pre Op Diagnosis: chronic sinusitis Patient Data Age: 52 Gender: F Height: 1.65 m Weight: 91 kg Allergies Allergy/AdvReac Type Severity Reaction Status Date / Time metronidazole [From Flagyl] Allergy Severe GI bleeding Verified 07/25/23 10:08 Sulfa (Sulfonamide Allergy Severe GI Bleeding Verified 07/25/23 10:08 Antibiotics) sulfamethoxazole Allergy Unknown Verified 07/25/23 10:08 [From Bactrim] trimethoprim [From Bactrim] Allergy Unknown Verified 07/25/23 10:08 hydrocodone [From Vicodin] AdvReac Severe Vomiting Verified 07/25/23 10:08 oxycodone AdvReac Severe Hallucinati Verified 07/31/23 07:58 ng adhesive tape AdvReac Blister Verified 07/25/23 10:08 Home Medications Medication Instructions Recorded Confirmed Type sucralfate 1 gram tablet 1 g PO TID PRN Acid Reflux 08/02/21 07/25/23 History adalimumab 40 mg/0.8 mL See Rx Instructions subcut .Every 10/24/21 07/25/23 Rx subcutaneous pen kit (Humira Pen) other Week #2 ea pantoprazole 40 mg tablet,delayed 40 mg PO QAM #90 tabs 01/09/22 07/25/23 Rx release atorvastatin 40 mg tablet 40 mg PO DAILY #90 tabs 03/22/22 07/25/23 Rx ascorbic acid (vitamin C) 1,000 mg 1 g PO DAILY 05/12/22 07/25/23 History tablet (Vitamin C) aspirin 81 mg tablet,delayed 81 mg PO DAILY 05/12/22 07/25/23 History release prednisolone acetate 1 % eye 1 drp EACH EYE PRN PRN CROHN'S EYES 05/12/22 07/25/23 History drops,suspension tumeric 100 mg-benjy 150 mg-olive 1 cap PO DAILY 05/12/22 07/25/23 History 50 mg-oreg 150 mg-caprylate capsule vitamin B12 1,000 mcg-folic acid 1 tablet sublingual DAILY 05/12/22 07/25/23 History 400 mcg sublingual tablet mupirocin 2 % topical ointment 1 applic topical BID #22 grams 09/13/22 07/25/23 Rx acetaminophen 325 mg capsule 650 mg PO Q8H PRN pain #20 caps 09/18/22 07/25/23 Rx (Tylenol) rimegepant 75 mg disintegrating 75 mg PO ONCE PRN migraine 10/04/22 07/25/23 Rx tablet (Nurtec ODT) headache #8 tabs colestipol 1 gram tablet 1 g PO ONCE 02/13/23 07/25/23 History paroxetine HCl 40 mg tablet (Paxil) 40 mg PO DAILY #90 tabs 06/20/23 07/25/23 Rx pregabalin 50 mg capsule 50 mg PO BID 06/27/23 07/25/23 History tramadol 50 mg tablet 50 mg PO Q4H PRN pain #30 tabs 07/09/23 07/25/23 Rx apixaban 5 mg tablet (Eliquis) See Rx Instructions .Route 07/10/23 07/25/23 Rx .COMPLEX #60 tabs alprazolam 0.5 mg tablet 0.25 mg PO DAILY PRN anxiety 07/19/23 07/25/23 History dicyclomine 10 mg capsule 10 mg PO DAILY 07/19/23 07/25/23 History hydrocortisone acetate 25 mg 25 mg RECTAL DAILY PRN CROHN'S EXAC 07/19/23 07/25/23 History rectal suppository mercaptopurine 50 mg tablet 50 mg PO DAILY 07/19/23 07/25/23 History ondansetron 4 mg disintegrating 4 mg PO Q8H PRN Nausea And Vomiting 07/19/23 07/25/23 History tablet sumatriptan succinate 50 mg tablet 50 mg PO ONCE PRN MIGRAINES 07/19/23 07/25/23 History (Imitrex) cholecalciferol (vitamin D3) 1,250 See Rx Instructions .Route 07/24/23 07/25/23 Rx mcg (50,000 unit) capsule .COMPLEX #12 caps amoxicillin 875 mg tablet 875 mg PO Q12H #28 tabs 07/25/23 07/25/23 Rx enoxaparin 80 mg/0.8 mL 80 mg (0.8 mL) subcut Q12H #3.2 mL 07/25/23 07/25/23 Rx subcutaneous syringe prednisone 20 mg tablet See Rx Instructions .Route 07/25/23 07/25/23 Rx .COMPLEX #30 tabs tizanidine 2 mg capsule 2 mg PO TID PRN 07/25/23 07/25/23 History Laboratory Tests 07/31/23 13:54 APTT Pending Patient hx anesthesia problems: none Family hx anesthesia problems: post op nausea/vomiting Results Review: All pre-operative results and docume
[2023-07-31] MEDS: ACETAMINOPHEN 500 MG TABLET 1000 MG PO (14:24)
[2023-07-31] MEDS: SCOPOLAMINE 1.5 MG PATCH TRANSDERM (14:24)
[2023-07-31] MEDS: LACTATED RINGERS 1,000 ML 30 ML IV CONT ×2 (14:24→18:38)
[2023-07-31] MEDS: ceFAZolin 2 GM/D5W 50 ML 2 GM/50 ML BAG IVPB (15:03)
[2023-07-31] MEDS: LIDO 1%/EPINEPHRINE 1:100,000 20 ML VIAL 5 ML INFILTRATE (15:32)
[2023-07-31] MEDS: OXYMETAZOLINE HCL 0.05% NAS 15 ML BTL (*BKC) 1 SPRAY NASAL (15:32)
[2023-07-31] MEDS: CIPROFLOXACIN HCL 0.3% OP SOLN 2.5 ML BTL 4 DROP EACH EAR (15:33)
--- NOTE | 2023-07-31 19:06 | W.PM.PROC2 ---
Procedure Note - Detailed Date of Procedure 07/31/23 Pre-op Diagnosis chronic sinusitis Post-op Diagnosis Same Procedure Performed Frontal sinus drill out draft 2b/frontal sinusotomy with tissue removed, total ethmoidectomy, dentures medial maxillectomy with tissue removal, all sinus surgeries left-sided image guided endoscopic. Right-sided myringotomy tube insertion Surgeon Lucho Peralta MD Anesthesia General Indications See above Findings Severely diseased left hypertrophied maxillary sinus, edematous tissue removed the frontal sinus copious amounts of purulence edematous tissue located within all the ethmoid air cells as well, glue otorrhea right middle ear Description of Procedure Patient identified consent verified preop. Patient brought to the operating. Time-out performed. General anesthesia induced endotracheal tube secure the airway. Patient prepped reposition procedure confirmed. Image guidance initiating confirmed. Afrin-soaked pledgets placed for minutes then. 0 endoscope utilized image guidance was utilized to locate the left nasal lacrimal duct. The remnant scarred down middle turbinate sorry inferior turbinates cauterized posterior to this 15 degree choanal atresia bur was utilized to drill through maxillary sinus any bleeders controlled Bovie suction electrocautery irrigation great care was taken to not injure the orbit. The maxillary sinus was drilled away from the posterior aspect of the nasal. I consider taking the nasolacrimal duct but had good visualization. The sinus was full of edematous odd appearing tissue which was with microdebrider 3 at 4:40 p.m.. Was also sent for pathologic analysis. It was flushed with the floor of the vault. Total ethmoidectomy performed with image guidance a Kerrison microdebrider any bleeders controlled Bovie suction setting 10/31/2012 in 15. Frontal sinusotomy performed with image guidance cobra [id number] draft instruments Hosemann punch microdebrider with rad 60 blade and frontal sinus 70 degree. Propel stent was placed. At the end of the procedure the wound was copiously irrigated with warm sterile. Bleeding was minimum SI decided not to put packing given that patient irrigate copiously given history of crusting. Blood loss about 100 cc. I performed all dictated portions of procedure. Tissue was removed from the frontal sinus left maxillary immediate dentures medial maxillectomy also right myringotomy was made in the ear copious amounts of otorrhea was suctioned collar button tube placed. Drops were placed. There were no complications that were made. Patient was taken to PACU. I should add a propel stent was placed in the left drilled out frontal sinus outflow tract. Estimated Blood Loss 100 Drains No Packing No Pathology Yes Complications No immediate complications Condition Stable Disposition PACU [facility] Billing Surgery - Charge Forward: Surgery Billing
[2023-07-31] MEDS: fentaNYL CITRATE INJ (*CRX) 100 MCG/2 ML VIAL 25 MCG IV PUSH ×3 (19:11→19:49)
[2023-07-31] MEDS: oxyCODONE/ACETAMINOPHEN (*CRX) 5-325 MG TABLET 1 TABLET PO (20:02)
== END 2023-07-31 21:08 | disposition home or self-care (01) ==
PROVIDERS: Anesthesiology; PCP Family Medicine; Visit Provider Otolaryngology
PROC: (CPT 31253; principal; 2023-07-31 12:30)
PROC: (CPT 31253; 2023-07-31 12:30)
DX: J01.90 Acute sinusitis, unspecified (principal); H65.01 Acute serous otitis media, right ear; I48.91 Unspecified atrial fibrillation; K50.90 Crohn's disease, unspecified, without complications; Z79.620 Long term (current) use of immunosuppressive biologic; Z79.82 Long term (current) use of aspirin; Z79.01 Long term (current) use of anticoagulants; Z79.52 Long term (current) use of systemic steroids; Z86.73 Personal history of transient ischemic attack (TIA), and cerebral infarction without residual deficits; Z87.891 Personal history of nicotine dependence; E66.9 Obesity, unspecified; Z68.33 Body mass index [BMI] 33.0-33.9, adult
CPT/HCPCS: 31253; 31267; 61782; 69436; 36415; 85730; 88305; 88311; A9270; C2625; J0330; J0690; J1100; J1170; J1940; J2250; J2405; J2704; J3010; J7120

== ENCOUNTER 2023-12-19 15:50 | Emergency (ER) | payer BC, SELFPAY ==
[2023-12-19] VITALS (23 sets, daily range): BP systolic 100–125; BP diastolic 54–85; PULSE 58–76; RESP 12–23; TEMP 36.6–37.2; O2SAT 92–98
--- NOTE | ~2023-12-19 | CT_ITS ---
EXAMINATION: CT brain wo con DATE: 12/19/2023 16:01 INDICATION: Cerebrovascular accident TECHNIQUE: Computed tomography (CT) of the head was performed without intravenous contrast. The mA wa s adjusted according to patient size. Iterative reconstruction technique was employed. Exam dose: 68 1.00 mGy-cm total exam DLP. COMPARISON: 08/07/2022 CT brain FINDINGS: There is a small old infarct along the high left parietal area, unchanged since 08/06/2022. Small left frontal old cerebrovascular infarct. There is mild calcification of the carotid siphon internal carotid arteries. Minimal bilateral benign basal ganglia calcification. Normal ventricular size. No intracranial mass lesion or hemorrhage, midline shift or mass effect. There is severe mucoperiosteal thickening of the left maxillary sinus. Large nasal antral window. Pat luis opacification of left ethmoid air cells and mild mucoperiosteal thickening of the left frontal si nus. There is limited development of the mastoid air cells bilaterally, with extensive left mastoid e ffusions. No fracture or bone destruction of the cranial vault. IMPRESSION: No intracranial hemorrhage or evidence of acute cerebrovascular accident. CT however is not sensitive for very early nonhemorrhagic infarct. Chronic left frontal and high left parietal old infarcts Cerebral atherosclerosis Dr. Alaniz telephoned the report on 12/19/2023 at 1612 hours to emergency room Nurse Mena. Reviewed, dictated and finalized at [facility]. Reviewed, dictated and finalized at [facility]. T TELEGRAPHER IMPRESSION: No intracranial hemorrhage or evidence of acute cerebrovascular ac cident. CT however is not sensitive for very early nonhemorrhagic infarct. Chronic left frontal and high left parietal old infarcts Cerebral atherosclerosis Dr. Alaniz telephoned the report on 12/19/2023 at 1612 hours to emergency room Sammie Whitmore
[2023-12-19 15:56] LABS: Glucose Point of Care 105 mg/dl (65-105)
--- NOTE | 2023-12-19 15:57 | ECG_ITS ---
Measurements Intervals [place] Rate: 65 P: 77 ND: 134 QRS: 63 QRSD: 86 T: 63 QT: 394 QTc: 412 Interpretive Statements SINUS RHYTHM BASELINE ARTIFACT- I, II, AVR, AVL, AVF NORMAL ECG COMPARED TO ECG 09/18/2022 15:47:54 NO SIGNIFICANT CHANGES Electronically Signed On 12-19-2023 21:16:33 BOOKING SUPERVISOR by Grey Bartlett D.O.
--- NOTE | 2023-12-19 15:57 | ED.NEUROSD ---
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 -- Slurred speech. The patient was talking to her sister when her sister noted her slurred speech and had her come to the hospital for immediate assessment -- vision changes. The patient had an NIHSS of 5. Onset (ago): hour(s) ( 1 hour) Time: 14:50 Timing confirmed by: spouse Location: dysarthria History of same: Yes Quality: weak Relieving factors: none Exacerbating factors: none Context: sudden onset On Anticoagulants: Yes Associated symptoms: headaches Treatments Prior to Arrival: Aspirin Related Data Home Medications Medication Instructions Recorded Confirmed sucralfate 1 gram tablet 1 g PO TID PRN Acid Reflux 08/02/21 11/01/23 ascorbic acid (vitamin C) 1,000 mg 1 g PO DAILY 05/12/22 11/01/23 tablet (Vitamin C) aspirin 81 mg tablet,delayed 81 mg PO DAILY 05/12/22 11/01/23 release prednisolone acetate 1 % eye 1 drp EACH EYE PRN PRN CROHN'S EYES 05/12/22 11/01/23 drops,suspension turmeric 100 mg-benjy 150 1 cap PO DAILY 05/12/22 11/01/23 mg-olive 50 mg-oreg 150 mg-capryl capsule vitamin B12 1,000 mcg-folic acid 1 tablet sublingual DAILY 05/12/22 11/01/23 400 mcg sublingual tablet colestipol 1 gram tablet 1 g PO ONCE 02/13/23 11/01/23 dicyclomine 10 mg capsule 10 mg PO DAILY 07/19/23 11/01/23 hydrocortisone acetate 25 mg 25 mg RECTAL DAILY PRN CROHN'S EXAC 07/19/23 11/01/23 rectal suppository mercaptopurine 50 mg tablet 50 mg PO DAILY 07/19/23 11/01/23 ondansetron 4 mg disintegrating 4 mg PO Q8H PRN Nausea And Vomiting 07/19/23 11/01/23 tablet sumatriptan succinate 50 mg tablet 50 mg PO ONCE PRN MIGRAINES 07/19/23 11/01/23 (Imitrex) tizanidine 2 mg capsule 2 mg PO TID PRN 07/25/23 11/01/23 tizanidine 2 mg tablet 2 mg PO TID 08/16/23 11/01/23 rosuvastatin 40 mg tablet 40 mg PO DAILY 10/18/23 11/01/23 Allergies Allergy/AdvReac Type Severity Reaction Status Date / Time metronidazole [From Flagyl] Allergy Severe GI bleeding Verified 12/19/23 16:10 Sulfa (Sulfonamide Allergy Severe GI Bleeding Verified 12/19/23 16:10 Antibiotics) sulfamethoxazole Allergy Unknown Verified 12/19/23 16:10 [From Bactrim] trimethoprim [From Bactrim] Allergy Unknown Verified 12/19/23 16:10 hydrocodone [From Vicodin] AdvReac Severe Vomiting Verified 12/19/23 16:10 oxycodone AdvReac Severe Hallucinati Verified 12/19/23 16:10 ng adhesive tape AdvReac Blister Verified 12/19/23 16:10 Review of Systems Constitutional: Constitutional: Reports as per HPI and Reports no additional constitutional complaints Eyes: Eyes: Reports change in vision Comments: decreased vision in the left eye ENT: Reports system reviewed and no additional complaints, except as documented and Reports as per HPI Cardiovascular: Cardiovascular: Reports as per HPI and Reports no additional cardiovascular complaints Respiratory: Respiratory: Reports as per HPI and Reports no additional respiratory complaints Gastrointestinal: Gastrointestinal: Reports as per HPI and Reports no additional gastrointestinal complaints Genitourinary: Genitourinary: Reports no additional female genitourinary complaints and Reports as per HPI Musculoskeletal: Musculoskeletal: Reports no additional musculoskeletal complaints and Reports as per HPI Integumentary/Br
[2023-12-19 16:06] LABS: Basophils Absolute Auto 0.03 K/mm3 (0.00-0.10); Basophils Percent Auto 0.4 % (0.0-1.0); Eosinophils Absolute Auto 0.07 K/mm3 (0.02-0.50); Eosinophils Percent Auto 0.9 % (1.0-6.0); Hematocrit 38.2 % (35.0-49.0); Hemoglobin 12.4 g/dL (12.0-15.0); Immature Granulocyte Absolute 0.03 K/mm3 (0.00-0.00); Immature Granulocyte Percent A 0.4 % (0.0-0.0); Lymphocytes Absolute Auto 2.15 K/mm3 (1.10-4.50); Lymphocytes Percent Auto 28.6 % (18.0-42.0); Mean Corpuscular HGB Conc 32.5 g/dL (32.0-36.0); Mean Corpuscular Hemoglobin 31.6 pg (27.0-31.0); Mean Corpuscular Volume 97.2 fL (78.0-102.0); Mean Platelet Volume 9.8 fl (9.2-11.8); Monocytes Absolute Auto 0.36 K/mm3 (0.10-0.90); Monocytes Percent Auto 4.8 % (2.0-11.0); Neutrophils Absolute Auto 4.9 K/mm3 (1.7-7.2); Neutrophils Percent Auto 64.9 % (50.0-70.0); Platelet Count Result 343 K/mm3 (150-420); Red Blood Count 3.93 M/mm3 (4.20-5.40); Red Cell Distribution Width 15.3 % (11.6-14.4); White Blood Count 7.5 K/mm3 (4.8-10.8)
[2023-12-19 16:14] LABS: Partial Thromboplastin Time 31.1 SEC (23.90-30.70); Prothrombin Time 10.9 Seconds (9.50-12.10)
[2023-12-19 16:23] LABS: Alanine Aminotransferase 26 U/L (14-59); Albumin Level 3.2 g/dL (3.4-5.0); Alkaline Phosphatase 71 U/L (46-116); Anion Gap 9 mmol/L (8-16); Aspartate Amino Transferase 16 U/L (15-37); Bilirubin,Total 0.5 mg/dL (0.00-1.00); Blood Urea Nitrogen 8 mg/dL (7-18); Calcium 8.8 mg/dL (8.5-10.1); Carbon Dioxide 28 mmol/L (21-32); Chloride 103 mmol/L (98-108); Estimated Glomerular Filt Rate > 60; Glucose 119 mg/dL (70-99); NT Pro B Type Natriuretic Pept 297 pg/mL (0-125); Osmolality Calculated 289 mOsm/kg (285-295); Potassium 4.2 mmol/L (3.5-5.1); Sodium 140 mmol/L (136-145); Total Protein 7.1 g/dL (6.4-8.2)
[2023-12-19 16:24] LABS: Troponin I 9.5 ng/L (0.00-60.4)
[2023-12-19 17:18] LABS: Appearance Urine Clear (Clear); Bilirubin Urine Negative (Negative); Blood Urine Trace-Intact (Negative); Color Urine Yellow (Yellow); Glucose Urine UA Negative (Negative); Ketones Urine Negative (Negative); Leukocyte Esterase Ur Negative LEU/UL (Negative); Nitrate Urine Negative (Negative); Protein Urine Negative (Negative)
[2023-12-19 17:29] LABS: Add Urine Microscopic? YES; Bacteria Urine Trace /hpf; RBC Urine 0-2 /hpf (0-2); Squamous Epithelial Cell Urine Few /hpf (Few); WBC Urine None seen /hpf (0-3)
== END 2023-12-19 18:15 | disposition home or self-care (01) ==
PROVIDERS: Emergency Provider Internal Medicine Critical Care Medicine; PCP Family Medicine
DX: G45.9 Transient cerebral ischemic attack, unspecified (principal); R51.9 Headache, unspecified; I48.91 Unspecified atrial fibrillation; K50.90 Crohn's disease, unspecified, without complications; Z86.73 Personal history of transient ischemic attack (TIA), and cerebral infarction without residual deficits; Z87.891 Personal history of nicotine dependence
CPT/HCPCS: 36415; 70450; 80053; 81001; 82948; 83880; 84484; 85025; 85610; 85730; 93005; 99284

== ENCOUNTER 2023-12-25 12:34 | Outpatient (CLI) | payer BC, SELFPAY ==
--- NOTE | ~2023-12-25 | CT_ITS ---
EXAMINATION: CT facial bones wo/w con DATE: 12/25/2023 13:16 INDICATION: Osteomyelitis. Swelling in mouth. Headache. TECHNIQUE: Computed tomography (CT) of the facial bones and maxillofacial region was performed withou t and with 75 mL Omnipaque 350 intravenous contrast. Automated exposure control and iterative reconst ruction technique were employed. The dose-length product was 1309.54 mGy-cm. COMPARISON: Sinuses CT 01/17/2023 FINDINGS: There are likely changes of left ocular lens replacement surgery. Left maxillary sinus is s mall with thickened and sclerotic lopez. There is mucosal thickening in the paranasal sinuses, worst in left maxillary sinus. There are changes of left uncinectomy, ethmoidectomies, and middle turbinect glenda. Right ostiomeatal unit is patent. There is rightward deviation of the nasal septum. The teeth de monstrate multiple carious lesions. There is mild cervical spondylosis. IMPRESSION: 1. Chronic sinusitis. 2. Dental disease. Reviewed, dictated and finalized at location A. K PITCHER
== END 2023-12-25 12:35 | disposition home or self-care (01) ==
LOC: ANHIMG 12:36
PROVIDERS: PCP Family Medicine; Visit Provider Family Medicine
DX: J32.9 Chronic sinusitis, unspecified (principal); K02.9 Dental caries, unspecified; K04.7 Periapical abscess without sinus
CPT/HCPCS: 70488; Q9967

== ENCOUNTER 2024-01-17 17:31 | Emergency (ER) | payer BC, SELFPAY ==
--- NOTE | ~2024-01-17 | US_ITS ---
EXAMINATION: US venous doppler LE RT DATE: 01/17/2024 18:48 INDICATION: Right lower limb pain TECHNIQUE: Park scale images without and with compression and Doppler images of the right lower extre mity veins were obtained. COMPARISON: None FINDINGS: The right common femoral vein, profunda femoral vein, femoral vein, popliteal vein, peronea l trunk, posterior tibial veins, and greater saphenous vein are patent. IMPRESSION: 1. Patent right lower extremity veins. No evidence of deep venous thrombosis. Reviewed, dictated and finalized at location F. EY ROOM CUSTODIAN
[2024-01-17 17:40] VITALS: BP 95/53; PULSE 81; RESP 18; TEMP 35.8; O2SAT 98
[2024-01-17 17:57] LABS: Basophils Absolute Auto 0.1 K/mm3 (0.0-0.1); Basophils Percent Auto 0.7 % (0.2-1.2); Eosinophils Absolute Auto 0.2 K/mm3 (0-0.3); Eosinophils Percent Auto 2.7 % (0-4.4); Hemoglobin 11.5 g/dL (12.0-15.0); Immature Granulocyte Absolute 0.02 K/mm3 (0.00-0.031); Immature Granulocyte Percent A 0.3 % (0-0.5); Lymphocytes Absolute Auto 1.76 K/mm3 (0.9-3.2); Lymphocytes Percent Auto 23.7 % (18.3-44.2); Mean Corpuscular HGB Conc 31.1 g/dl (32-36); Mean Corpuscular Hemoglobin 31.5 pg (26-34); Mean Corpuscular Volume 101.4 fl (80-100); Mean Platelet Volume 10.3 fl (7.4-10.4); Monocytes Absolute Auto 0.5 K/mm3 (0.1-0.6); Monocytes Percent Auto 7.3 % (2.6-8.5); Neutrophils Absolute Auto 4.9 K/mm3 (1.3-6.7); Neutrophils Percent Auto 65.3 % (45.5-73.1); Platelet Count Result 220 k/mm3 (150-375); Red Blood Count 3.65 M/mm3 (4.2-5.4); Red Cell Distribution Width 15.9 % (11.5-14.5); White Blood Count 7.4 K/mm3 (4.5-10.0)
[2024-01-17 18:05] LABS: Anion Gap 2 mmol/L (8-16); Blood Urea Nitrogen 12 mg/dL (7-17); Calcium 9.1 mg/dL (8.4-10.2); Carbon Dioxide 32 mmol/L (22-30); Chloride 105 mmol/L (98-107); Estimated CRCL calculation 63 ml/min; Estimated Glomerular Filt Rate 58; Glucose 111 mg/dL (65-110); INR 1.1; Potassium 4.8 mmol/L (3.4-5.0); Prothrombin Time 14.3 Seconds (11.1-14.7); Sodium 139 mmol/L (137-145)
[2024-01-17 18:06] LABS: Partial Thromboplastin Time 33.2 SECONDS (22.3-36.8)
--- NOTE | 2024-01-17 18:53 | ED.EXTPRO ---
HPI - Extremity Problem General Chief complaint: Extremity Problem,Nontraumatic Stated complaint: NEEDS DOPPLER Time Seen by Provider: 01/17/24 18:30 Source: patient Mode of arrival: ambulatory Limitations: no limitations History of Present Illness HPI Narrative: Patient presents with right leg swelling requeseting ultrasound be performed at the recommendation of another physician. Patient sees Dr Walton (aneesthesiologist at [facility]) for pain management. Her uncle on 01/01 and she took a long 3.5 hour flight on 01/06 and again to come back on 01/15. She has a history of Factor V Leiden complicated by 3 strokes and knows she is at risk for VTE as a result so tried to do leg exercises. She still, however, felt like her right leg had pain and swelling upon return. She developed knee pain on the and her upper right thigh hurt. No trauma. Is on Elliquis 5mg BID and 81ms ASA and denies missing any doses. In fact, took an extra dose or two of aspirin. Related Data Home Medications Medication Instructions Recorded Confirmed sucralfate 1 gram tablet 1 g PO TID PRN Acid Reflux 08/02/21 12/28/23 ascorbic acid (vitamin C) 1,000 mg 1 g PO DAILY 05/12/22 12/28/23 tablet (Vitamin C) aspirin 81 mg tablet,delayed 81 mg PO DAILY 05/12/22 12/28/23 release prednisolone acetate 1 % eye 1 drp EACH EYE PRN PRN CROHN'S EYES 05/12/22 12/28/23 drops,suspension turmeric 100 mg-benjy 150 1 cap PO DAILY 05/12/22 12/28/23 mg-olive 50 mg-oreg 150 mg-capryl capsule vitamin B12 1,000 mcg-folic acid 1 tablet sublingual DAILY 05/12/22 12/28/23 400 mcg sublingual tablet colestipol 1 gram tablet 1 g PO ONCE 02/13/23 12/28/23 dicyclomine 10 mg capsule 10 mg PO DAILY 07/19/23 12/28/23 hydrocortisone acetate 25 mg 25 mg RECTAL DAILY PRN CROHN'S EXAC 07/19/23 12/28/23 rectal suppository mercaptopurine 50 mg tablet 50 mg PO DAILY 07/19/23 12/28/23 sumatriptan succinate 50 mg tablet 50 mg PO ONCE PRN MIGRAINES 07/19/23 12/28/23 (Imitrex) tizanidine 2 mg capsule 2 mg PO TID PRN 07/25/23 12/28/23 tizanidine 2 mg tablet 2 mg PO TID 08/16/23 12/28/23 rosuvastatin 40 mg tablet 40 mg PO DAILY 10/18/23 12/28/23 Allergies Allergy/AdvReac Type Severity Reaction Status Date / Time metronidazole [From Flagyl] Allergy Severe GI bleeding Verified 12/28/23 08:54 Sulfa (Sulfonamide Allergy Severe GI Bleeding Verified 12/28/23 08:54 Antibiotics) sulfamethoxazole Allergy Unknown Verified 12/28/23 08:54 [From Bactrim] trimethoprim [From Bactrim] Allergy Unknown Verified 12/28/23 08:54 hydrocodone [From Vicodin] AdvReac Severe Vomiting Verified 12/28/23 08:54 oxycodone AdvReac Severe Hallucinati Verified 12/28/23 08:54 ng adhesive tape AdvReac Blister Verified 12/28/23 08:54 PMFSH Past Medical History Medical History Abdominal pain Amputated toe of right foot Arnold-Chiari malformation Atrial fibrillation Blepharitis Conjunctivitis Crohn's disease Epistaxis Factor V Leiden Goblet cell carcinoid History of CVA (cerebrovascular accident) x3 History of TIA (transient ischemic attack) Hospital discharge follow-up Insomnia Laceration Osteomyelitis Portal hypertension Portal vein thrombosis Restless leg syndrome Right foot injury Tooth abscess Umbilical endometriosis Uveitis Visit for suture removal Surgical History Surgical History H/O shoulder surgery H/O sinus surgery H/O surgical amputation of finger History of abdominal surgery History of appendectomy 05/2019 History of bowel resection History of ear surgery Family History Family History Other Alzheimer disease Social History Social History Smoking packs per day: 2 Smoking cigarettes per day: 40.0 Years smoked: 20 Smoking p
[2024-01-17 19:18] VITALS: BP 108/81; PULSE 74; RESP 16; O2SAT 96
--- NOTE | 2024-01-17 20:16 | PC.NURSE ---
Patient stated that her leg was hurting and her back was hurting. Notified EDP who ordered 1,000mg Tylenol PO. Patient refused medication and states Save them. Tylenol does not do anything for me. I already have taken two Tramadol. Tylenol returned to the Pyxis.
--- NOTE | 2024-01-17 20:27 | PC.NURSE ---
Patient was upset that she still didn't have her discharge paperwork. Patient was educated that the EDP had to type and print out the paperwork. The patient was still upset stating This has been useless and I'm ready to go and if something was wrong they would have already been in here . Patient was then educated that the ED had two critical patients at the time and that the EDP will be made aware that the patient was ready to go.
== END 2024-01-17 20:29 | disposition home or self-care (01) ==
PROVIDERS: Preventive Medicine Aerospace Medicine; Emergency Provider Student in an Organized Health Care Education/Training Program; PCP Family Medicine
DX: M79.651 Pain in right thigh (principal); D53.9 Nutritional anemia, unspecified; D68.51 Activated protein C resistance; I48.91 Unspecified atrial fibrillation; K50.90 Crohn's disease, unspecified, without complications; G25.81 Restless legs syndrome; Z86.73 Personal history of transient ischemic attack (TIA), and cerebral infarction without residual deficits; Z85.89 Personal history of malignant neoplasm of other organs and systems; Z90.49 Acquired absence of other specified parts of digestive tract; Z89.029 Acquired absence of unspecified finger(s); Z89.421 Acquired absence of other right toe(s); Z79.01 Long term (current) use of anticoagulants; Z79.82 Long term (current) use of aspirin
CPT/HCPCS: 36415; 80048; 85025; 85610; 85730; 93971; 99284

== ENCOUNTER 2024-01-30 13:52 | Outpatient (NON) | payer BC, SELFPAY | END 2024-01-30 13:53 | disposition home or self-care (01) | LOC: ANHGOSHLAB 13:54 | PROVIDERS: PCP Family Medicine; Visit Provider Otolaryngology | DX: J33.9 Nasal polyp, unspecified (principal) | CPT/HCPCS: 87070; 87075; 87147; 87181; 87205 ==

== ENCOUNTER 2024-04-09 14:55 | Outpatient (CLI) | payer BC, SELFPAY ==
[2024-04-09 16:18] LABS: Ferritin 35 ng/mL (8-252); Iron 67 ug/dL (50-170); Percent Iron Saturation 19 % (12-57)
== END 2024-04-09 14:56 | disposition home or self-care (01) ==
LOC: CHSLAB 14:56
PROVIDERS: PCP Family Medicine; Visit Provider Family Medicine
DX: R53.83 Other fatigue (principal); D50.9 Iron deficiency anemia, unspecified
CPT/HCPCS: 36415; 82728; 83540; 83550

== ENCOUNTER 2024-04-15 01:37 | Emergency (ER) | payer BC, SELFPAY ==
[2024-04-15 01:43] VITALS: BP 96/58; PULSE 78; RESP 18; TEMP 36.6; O2SAT 98
--- NOTE | 2024-04-15 02:06 | ED.BACK ---
HPI - Back Pain/Injury General Chief Complaint: Back Pain/Injury Stated Complaint: lower back and hip pain Time Seen by Provider: 04/15/24 01:47 Source: patient Mode of arrival: ambulatory Limitations: no limitations History of Present Illness HPI Narrative: this is a 53-year-old female with chronic back pain/ degenerative disc disease presents with low back pain after she was doing yd work all day. There is no radiculopathy no radiation of her pain located in her low back area in the L5 left paravertebral area. No fever chills no flank pain no dysuria. MD elicited complaint: back pain Pertinent past history: prior back pain Onset (ago): day(s) Timing: constant Severity: moderate Pain scale (0-10): 8 Quality: dull Location: lumbar spine Radiation: none Exacerbating factors: movement Relieving factors: immobilization Context: while lifting, turning/twisting and bending Related Data Home Medications Medication Instructions Recorded Confirmed sucralfate 1 gram tablet 1 g PO TID PRN Acid Reflux 08/02/21 04/15/24 ascorbic acid (vitamin C) 1,000 mg 1 g PO DAILY 05/12/22 04/15/24 tablet (Vitamin C) aspirin 81 mg tablet,delayed 81 mg PO DAILY 05/12/22 04/15/24 release prednisolone acetate 1 % eye 1 drp EACH EYE PRN PRN CROHN'S EYES 05/12/22 04/15/24 drops,suspension turmeric 100 mg-benjy 150 1 cap PO DAILY 05/12/22 04/15/24 mg-olive 50 mg-oreg 150 mg-capryl capsule vitamin B12 1,000 mcg-folic acid 1 tablet sublingual DAILY 05/12/22 04/15/24 400 mcg sublingual tablet colestipol 1 gram tablet 1 g PO ONCE 02/13/23 04/15/24 dicyclomine 10 mg capsule 10 mg PO DAILY 07/19/23 04/15/24 hydrocortisone acetate 25 mg 25 mg RECTAL DAILY PRN CROHN'S EXAC 07/19/23 04/15/24 rectal suppository mercaptopurine 50 mg tablet 50 mg PO DAILY 07/19/23 04/15/24 sumatriptan succinate 50 mg tablet 50 mg PO ONCE PRN MIGRAINES 07/19/23 04/15/24 (Imitrex) tizanidine 2 mg capsule 2 mg PO TID PRN Pain (Scale Score 07/25/23 04/15/24 1-3) rosuvastatin 40 mg tablet 40 mg PO DAILY 10/18/23 04/15/24 calcium carbonate (Antacid 200 mg PO TID 02/22/24 04/15/24 (calcium carbonate)) calcium carbonate 600 mg PO BID 03/03/24 04/15/24 prednisone 20 mg tablet See Rx Instructions .Route .COMPLEX 03/03/24 04/15/24 fluticasone furoate 100 1 inh inhalation DAILY 03/17/24 04/15/24 mcg-vilanterol 25 mcg/dose inhalation powder (Breo Ellipta) Allergies Allergy/AdvReac Type Severity Reaction Status Date / Time metronidazole [From Flagyl] Allergy Severe GI bleeding Verified 04/15/24 01:43 Sulfa (Sulfonamide Allergy Severe GI Bleeding Verified 04/15/24 01:43 Antibiotics) sulfamethoxazole Allergy Unknown Verified 04/15/24 01:43 [From Bactrim] trimethoprim [From Bactrim] Allergy Unknown Verified 04/15/24 01:43 hydrocodone [From Vicodin] AdvReac Severe Vomiting Verified 04/15/24 01:43 oxycodone AdvReac Severe Hallucinati Verified 04/15/24 01:43 ng adhesive tape AdvReac Blister Verified 04/15/24 01:43 Review of Systems Review of Systems: All systems reviewed & are unremarkable except as noted in HPI and below PMFSH Past Medical History Medical History Abdominal pain Amputated toe of right foot Arnold-Chiari malformation Atrial fibrillation Blepharitis Conjunctivitis Crohn's disease Diabetes Epistaxis Factor V Leiden Family history of iron deficiency anemia Fatigue Goblet cell carcinoid History of CVA (cerebrovascular accident) x3 History of TIA (transient ischemic attack) Hospital discharge follow-up Insomnia Iron deficiency anemia Laceration Osteomyelitis Portal hypertension Portal vein thrombosis Restless leg syndrome Right foot injury Tooth abscess Umbilical endometriosis Uveitis Visit for suture removal Weight loss counseling, encounter for Surgical History Surgical History H/O shoulder surge
[2024-04-15] MEDS: KETOROLAC (*BKC) 60 MG/2 ML VIAL IM (02:14)
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
== END 2024-04-15 02:33 | disposition home or self-care (01) ==
PROVIDERS: Emergency Provider Emergency Medicine; PCP Family Medicine
DX: M54.50 Low back pain, unspecified (principal); E11.9 Type 2 diabetes mellitus without complications; K50.90 Crohn's disease, unspecified, without complications; D68.51 Activated protein C resistance; K76.6 Portal hypertension; G25.81 Restless legs syndrome; F12.90 Cannabis use, unspecified, uncomplicated; Z86.73 Personal history of transient ischemic attack (TIA), and cerebral infarction without residual deficits; Z87.891 Personal history of nicotine dependence; Z79.82 Long term (current) use of aspirin; Z79.51 Long term (current) use of inhaled steroids; Z79.891 Long term (current) use of opiate analgesic; Z79.01 Long term (current) use of anticoagulants
CPT/HCPCS: 96372; 99283; J1885

== ENCOUNTER 2024-04-20 15:30 | Emergency (ER) | payer BC, SELFPAY ==
--- NOTE | ~2024-04-20 | CT_ITS ---
EXAMINATION: CT abdomen pelvis w con DATE: 04/20/2024 17:54 INDICATION: Right flank pain. Nausea and vomiting. TECHNIQUE: Computed tomography (CT) of the abdomen and pelvis was performed with 100 mL Omnipaque 350 intravenous contrast. Automated exposure control and iterative reconstruction technique were employe d. The dose-length product was 552.41 mGy-cm. COMPARISON: CT abdomen and pelvis 05/29/2023 FINDINGS: The visualized portions of the lung bases demonstrate mild atelectasis. No pleural effusion . The heart size is normal. No pericardial effusion. The liver and gallbladder are normal. 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 The pancreas, adrenal glands, and kidneys are normal. There are no dilated loops of bowel. There is an ileocolic anastomosis. There are no pathologically enlarged lymph nodes. There is no free intraperitoneal fluid. Aortic atherosclerosis is noted. There is severe lower lumba r spondylosis. IMPRESSION: 1. No etiology for the patient's symptoms. Reviewed, dictated and finalized at location E.
[2024-04-20 15:30] VITALS: BP 106/40; PULSE 68; RESP 16; TEMP 36.2; O2SAT 97
--- NOTE | 2024-04-20 15:37 | ED.ABDPAIN ---
HPI - Abdominal Pain General Chief Complaint: Abdominal Pain Stated Complaint: abdominal pain Time Seen by Provider: 04/20/24 15:37 Source: patient and family Mode of arrival: ambulatory Limitations: no limitations History of Present Illness HPI narrative: Patient is a 53-year-old female with right lower quadrant abdominal pain since yesterday. She has Crohn's disease. She has had prior abdominal bowel repair. She had bowel movement yesterday. No nausea vomiting diarrhea. patient is on Eliquis for AFib. Also patient is on chronic steroids. She takes steroids for Crohn's disease. 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) Onset (ago): day(s) (2) Pain Consistency: constant Location: diffuse and RLQ Severity: severe Pain scale (0-10): 8 Quality: cramping and sharp Radiation: RLQ Migration to: no migration Exacerbating factors: movement Relieving factors: rest Context: confirms history of similar episodes and confirms other ( bowel surgery 5 years ago) Associated symptoms: denies other symptoms Related Data Home Medications Medication Instructions Recorded Confirmed sucralfate 1 gram tablet 1 g PO TID PRN Acid Reflux 08/02/21 04/15/24 ascorbic acid (vitamin C) 1,000 mg 1 g PO DAILY 05/12/22 04/15/24 tablet (Vitamin C) aspirin 81 mg tablet,delayed 81 mg PO DAILY 05/12/22 04/15/24 release prednisolone acetate 1 % eye 1 drp EACH EYE PRN PRN CROHN'S EYES 05/12/22 04/15/24 drops,suspension turmeric 100 mg-benjy 150 1 cap PO DAILY 05/12/22 04/15/24 mg-olive 50 mg-oreg 150 mg-capryl capsule vitamin B12 1,000 mcg-folic acid 1 tablet sublingual DAILY 05/12/22 04/15/24 400 mcg sublingual tablet colestipol 1 gram tablet 1 g PO ONCE 02/13/23 04/15/24 dicyclomine 10 mg capsule 10 mg PO DAILY 07/19/23 04/15/24 hydrocortisone acetate 25 mg 25 mg RECTAL DAILY PRN CROHN'S EXAC 07/19/23 04/15/24 rectal suppository mercaptopurine 50 mg tablet 50 mg PO DAILY 07/19/23 04/15/24 sumatriptan succinate 50 mg tablet 50 mg PO ONCE PRN MIGRAINES 07/19/23 04/15/24 (Imitrex) tizanidine 2 mg capsule 2 mg PO TID PRN Pain (Scale Score 07/25/23 04/15/24 1-3) rosuvastatin 40 mg tablet 40 mg PO DAILY 10/18/23 04/15/24 calcium carbonate (Antacid 200 mg PO TID 02/22/24 04/15/24 (calcium carbonate)) calcium carbonate 600 mg PO BID 03/03/24 04/15/24 prednisone 20 mg tablet See Rx Instructions .Route .COMPLEX 03/03/24 04/15/24 fluticasone furoate 100 1 inh inhalation DAILY 03/17/24 04/15/24 mcg-vilanterol 25 mcg/dose inhalation powder (Breo Ellipta) Allergies Allergy/AdvReac Type Severity Reaction Status Date / Time metronidazole [From Flagyl] Allergy Severe GI bleeding Verified 04/16/24 14:56 Sulfa (Sulfonamide Allergy Severe GI Bleeding Verified 04/16/24 14:56 Antibiotics) sulfamethoxazole Allergy Unknown Verified 04/16/24 14:56 [From Bactrim] trimethoprim [From Bactrim] Allergy Unknown Verified 04/16/24 14:56 hydrocodone [From Vicodin] AdvReac Severe Vomiting Verified 04/16/24 14:56 oxycodone AdvReac Severe Hallucinati Verified 04/16/24 14:56 ng adhesive tape AdvReac Blister Verified 04/16/24 14:56 Review of Systems Review of Systems: All systems reviewed & are unremarkable except as noted in HPI and below Constitutional: Constitutional: Reports no additional constitutional complaints Eyes: Eyes: Reports no additional eye complaints ENT: Reports system reviewed and no additional complaints, except as documented Cardiovascular: Cardiovascular: Reports no additional cardiovascular complaints Respiratory: Respiratory: Reports no additional respiratory complaints Gastrointestinal: Gastrointestinal: Reports no additional gastrointestinal complaints Genitourinary: Genitourinary: Reports no additional female genitourinary complaints Musculoskeletal: Musculoskeletal: Reports no additional mus
[2024-04-20] MEDS: MORPHINE SULFATE (*CRX) 2 MG/ML INJ 4 MG IV PUSH (15:59)
[2024-04-20] MEDS: SODIUM CHLORIDE 0.9% IV 1,000 ML 999 ML IV CONT (16:02)
[2024-04-20 16:55] VITALS: BP 109/53; PULSE 78; RESP 18; O2SAT 95
--- NOTE | 2024-04-20 17:07 | PC.NURSE ---
pt up and out of bed, ambulated to bathroom, back to room. pt declined warm blanket or any other needs at this time
[2024-04-20 17:14] LABS: Basophils Absolute Auto 0.02 K/mm3 (0.00-0.10); Basophils Percent Auto 0.4 % (0.0-1.0); Eosinophils Absolute Auto 0.07 K/mm3 (0.02-0.50); Eosinophils Percent Auto 1.3 % (1.0-6.0); Hematocrit 33.4 % (35.0-49.0); Hemoglobin 10.9 g/dL (12.0-15.0); Immature Granulocyte Absolute 0.02 K/mm3 (0.00-0.00); Immature Granulocyte Percent A 0.4 % (0.0-0.0); Lymphocytes Absolute Auto 0.97 K/mm3 (1.10-4.50); Lymphocytes Percent Auto 18.4 % (18.0-42.0); Mean Corpuscular HGB Conc 32.6 g/dL (32-36); Mean Corpuscular Hemoglobin 31.7 pg (27.0-31.0); Mean Corpuscular Volume 97.1 fL (78.0-102.0); Mean Platelet Volume 10.2 fl (9.2-11.8); Monocytes Absolute Auto 0.28 K/mm3 (0.10-0.90); Monocytes Percent Auto 5.3 % (2.0-11.0); Neutrophils Percent Auto 74.2 % (50.0-70.0); Platelet Count Result 227 K/mm3 (150-420); Red Blood Count 3.44 M/mm3 (4.20-5.40); Red Cell Distribution Width 14.7 % (11.6-14.4); White Blood Count 5.3 K/mm3 (4.8-10.8)
[2024-04-20 17:25] LABS: INR 0.9; Partial Thromboplastin Time 29.3 Sec (23.9-30.70); Prothrombin Time 10.3 Seconds (9.50-12.1)
[2024-04-20 17:26] LABS: Appearance Urine Clear (Clear); Bilirubin Urine Negative (Negative); Blood Urine Trace-intact (Negative); Color Urine Light Yellow (Yellow); Glucose Urine UA Negative (Negative); Ketones Urine Negative (Negative); Leukocyte Esterase Ur Negative LEU/UL (Negative); Nitrate Urine Negative (Negative); Protein Urine Negative (Negative); Urobilinogen Urine 0.2 mg/dL (0.2-1.0)
[2024-04-20 17:33] LABS: Alanine Aminotransferase 21 U/L (14-59); Albumin Level 2.8 g/dL (3.4-5.0); Alkaline Phosphatase 46 U/L (46-116); Anion Gap 11 mmol/L (4-12); Aspartate Amino Transferase 14 U/L (15-37); Bilirubin,Total 0.4 mg/dL (0.00-1.00); Blood Urea Nitrogen 8 mg/dL (7-18); Calcium 8.4 mg/dL (8.5-10.1); Carbon Dioxide 23 mmol/L (21-32); Chloride 107 mmol/L (98-108); Estimated CRCL calculation 71 ml/min; Estimated Glomerular Filt Rate > 60; Glucose 120 mg/dL (70-99); Lipase 22 U/L (16-77); Osmolality Calculated 291 mOsm/kg (285-295); Potassium 4.3 mmol/L (3.5-5.1); Sodium 141 mmol/L (136-145); Total Protein 6.6 g/dL (6.4-8.2)
[2024-04-20 17:40] LABS: Lactic Acid Reflex 1.8 mmol/L (0.4-2.0)
[2024-04-20 17:43] LABS: Add Urine Microscopic? YES; RBC Urine None seen /hpf (0-2)
--- NOTE | 2024-04-20 17:43 | PC.NURSE ---
1740 pt to xray dept via for ct scan.
--- NOTE | 2024-04-20 17:51 | PC.NURSE ---
pt returned to room per wheelchair, declined warm blanket. call larkin in reach. resting per cot.
[2024-04-20 18:27] VITALS: BP 115/62; PULSE 56; RESP 20; O2SAT 98
--- NOTE | 2024-04-27 13:03 | PC.NURSE ---
Final blood culture report, No growth after 5 days, no further action or treatment needed.
== END 2024-04-20 18:27 | disposition home or self-care (01) ==
PROVIDERS: Emergency Provider Emergency Medicine; PCP Family Medicine
DX: K50.90 Crohn's disease, unspecified, without complications (principal); I48.91 Unspecified atrial fibrillation; D68.51 Activated protein C resistance; E11.9 Type 2 diabetes mellitus without complications; D50.9 Iron deficiency anemia, unspecified; G25.81 Restless legs syndrome; Z86.73 Personal history of transient ischemic attack (TIA), and cerebral infarction without residual deficits; Z90.49 Acquired absence of other specified parts of digestive tract; Z87.891 Personal history of nicotine dependence; Z85.09 Personal history of malignant neoplasm of other digestive organs; Z79.82 Long term (current) use of aspirin; Z79.51 Long term (current) use of inhaled steroids; Z79.85 Long-term (current) use of injectable non-insulin antidiabetic drugs; Z79.01 Long term (current) use of anticoagulants
CPT/HCPCS: 36415; 74177; 80053; 81001; 83605; 83690; 85025; 85610; 85730; 87040; 96361; 96374; 99284; J2270; J7030; Q9967

== ENCOUNTER 2024-08-30 03:12 | Emergency (ER) | payer BC, SELFPAY ==
[2024-08-30 03:15] VITALS: BP 134/70; PULSE 63; RESP 18; TEMP 36.3; O2SAT 98
--- NOTE | 2024-08-30 04:03 | ED.GENADULT ---
HPI - General Adult General Chief complaint: Extremity Injury, Lower Stated complaint: unspecified Time Seen by Provider: 08/30/24 03:42 Source: patient Mode of arrival: ambulatory Limitations: no limitations History of Present Illness HPI narrative: Patient complains of chronic right groin pain she had MRI done that showed a labral tear degenerative disc disease at L5-S1. She is on Percocet 10s 3 times a day says her pain is a 7/10 now she has had the pain since she fell back in December this year she has been to pain management and physical therapy. She has a new nurse practitioner that is prescribing her purse Percocet she says when she is taking her medicine 3 times a day her pain is usually a 4 5 but denies a 7. Denies any problems voiding or stooling weakness problems walking talking seeing or hearing. Does hurt more when she walks and moves around. Denies any numbness fever cough runny nose sore throat or any other symptoms. Related Data Home Medications Medication Instructions Recorded Confirmed sucralfate 1 gram tablet 1 g PO TID PRN Acid Reflux 08/02/21 07/31/24 ascorbic acid (vitamin C) 1,000 mg 1 g PO DAILY 05/12/22 07/31/24 tablet (Vitamin C) aspirin 81 mg tablet,delayed 81 mg PO DAILY 05/12/22 07/31/24 release prednisolone acetate 1 % eye 1 drp EACH EYE PRN PRN CROHN'S EYES 05/12/22 07/31/24 drops,suspension turmeric 100 mg-benjy 150 1 cap PO DAILY 05/12/22 07/31/24 mg-olive 50 mg-oreg 150 mg-capryl capsule vitamin B12 1,000 mcg-folic acid 1 tablet sublingual DAILY 05/12/22 07/31/24 400 mcg sublingual tablet dicyclomine 10 mg capsule 10 mg PO DAILY 07/19/23 07/31/24 hydrocortisone acetate 25 mg 25 mg RECTAL DAILY PRN CROHN'S EXAC 07/19/23 07/31/24 rectal suppository mercaptopurine 50 mg tablet 50 mg PO DAILY 07/19/23 07/31/24 sumatriptan succinate 50 mg tablet 50 mg PO ONCE PRN MIGRAINES 07/19/23 07/31/24 (Imitrex) tizanidine 2 mg capsule 2 mg PO TID PRN Pain (Scale Score 07/25/23 07/31/24 1-3) rosuvastatin 40 mg tablet 40 mg PO DAILY 10/18/23 07/31/24 calcium carbonate (Antacid 200 mg PO TID 02/22/24 07/31/24 (calcium carbonate)) calcium carbonate 600 mg PO BID 03/03/24 07/31/24 fluticasone furoate 100 1 inh inhalation DAILY 03/17/24 07/31/24 mcg-vilanterol 25 mcg/dose inhalation powder (Breo Ellipta) diphenoxylate-atropine 2.5 1 tablet PO QID PRN 07/09/24 07/31/24 mg-0.025 mg tablet hyoscyamine sulfate 0.125 mg 0.125 mg PO QID 07/09/24 07/31/24 disintegrating tablet Allergies Allergy/AdvReac Type Severity Reaction Status Date / Time metronidazole [From Flagyl] Allergy Severe GI bleeding Verified 07/31/24 11:06 Sulfa (Sulfonamide Allergy Severe GI Bleeding Verified 07/31/24 11:06 Antibiotics) sulfamethoxazole Allergy Unknown Verified 07/31/24 11:06 [From Bactrim] trimethoprim [From Bactrim] Allergy Unknown Verified 07/31/24 11:06 hydrocodone [From Vicodin] AdvReac Severe Vomiting Verified 07/31/24 11:06 oxycodone AdvReac Severe Hallucinati Verified 07/31/24 11:06 ng adhesive tape AdvReac Blister Verified 07/31/24 11:06 Review of Systems Review of Systems: All systems reviewed & are unremarkable except as noted in HPI and below PMFSH Past Medical History Medical History Amputated toe of right foot Arnold-Chiari malformation Atrial fibrillation Crohn's disease Diabetes Factor V Leiden Fatigue Goblet cell carcinoid History of CVA (cerebrovascular accident) x3 History of TIA (transient ischemic attack) Insomnia Iron deficiency anemia Lumbar spondylosis Osteomyelitis Portal hypertension Portal vein thrombosis Restless leg syndrome Uveitis Surgical History Surgical History H/O shoulder surgery H/O sinus surgery H/O surgical amputation of finger History of appendectomy 05/2019 History of bowel resection History of ear surg
--- NOTE | 2024-08-30 04:31 | PC.NURSE ---
pt unable to take toradol due to taking eliquis. pt angry yelling cursing states the doctor is crazy and bad and she is going somewere else. left without discharge papers, stomped out cursing
== END 2024-08-30 04:40 | disposition home or self-care (01) ==
PROVIDERS: Emergency Provider Emergency Medicine; PCP Nurse Practitioner Family
DX: M25.551 Pain in right hip (principal); G89.29 Other chronic pain; E11.9 Type 2 diabetes mellitus without complications; I48.91 Unspecified atrial fibrillation; Z86.73 Personal history of transient ischemic attack (TIA), and cerebral infarction without residual deficits; Z87.891 Personal history of nicotine dependence
CPT/HCPCS: 99282

== ENCOUNTER 2024-09-12 18:45 | Inpatient (IN) | payer BC, SELFPAY ==
[2024-09-12] VITALS (10 sets, daily range): BP systolic 100–123; BP diastolic 59–95; PULSE 66–85; RESP 13–29; TEMP 36.7; O2SAT 95–100
--- NOTE | ~2024-09-12 | CT_ITS ---
EXAMINATION: CT sinus w con DATE: 09/13/2024 01:10 INDICATION: Chronic sinusitis. TECHNIQUE: Computed tomography (CT) of the paranasal sinuses was performed without intravenous contra st. Iterative reconstruction technique was employed. The dose-length product was 573.55 mGy-cm. COMPARISON: CT maxillofacial 12/25/2023 FINDINGS: There is near complete opacification of left frontal sinus with erosions of the sinus lopez . There is near complete opacification of the left ethmoid sinuses with sclerosis and erosions of the sinus lopez. There is near complete opacification of left maxillary sinus, which is small with thick ening and sclerotic lopez. There is mild mucosal thickening in right maxillary sinus. The sphenoid si nuses are clear. There is rightward deviation of the nasal septum. There are changes of resection of left ethmoid air cells and left middle and inferior turbinates and medial wall of left maxillary sinu s. Right ostiomeatal unit is patent. There are bilateral otomastoid effusions. Dental disease is note d. IMPRESSION: 1. Chronic sinusitis. 2. Rightward deviation of the nasal septum. 3. Bilateral otomastoid effusions. 4. Dental disease. Reviewed, dictated and finalized at location A.
--- NOTE | 2024-09-12 22:17 | PC.NURSE ---
pt moved from ed 15 to ed 14 and placed on a monitor at this time.
[2024-09-13 00:08] LABS: Basophils Percent Auto 0.7 % (0.2-1.2); Eosinophils Absolute Auto 0.2 K/mm3 (0-0.3); Hematocrit 37.8 % (37.0-47.0); Hemoglobin 12.8 g/dL (12.0-15.0); Immature Granulocyte Absolute 0.01 K/mm3 (0.00-0.031); Immature Granulocyte Percent A 0.2 % (0-0.5); Lymphocytes Absolute Auto 2.46 K/mm3 (0.9-3.2); Lymphocytes Percent Auto 40.6 % (18.3-44.2); Mean Corpuscular HGB Conc 33.9 g/dl (32-36); Mean Corpuscular Hemoglobin 31.7 pg (26-34); Mean Corpuscular Volume 93.6 fl (80-100); Mean Platelet Volume 10.7 fl (7.4-10.4); Monocytes Absolute Auto 0.5 K/mm3 (0.1-0.6); Monocytes Percent Auto 8.6 % (2.6-8.5); Neutrophils Absolute Auto 2.9 K/mm3 (1.3-6.7); Neutrophils Percent Auto 46.9 % (45.5-73.1); Platelet Count Result 206 k/mm3 (150-375); Red Blood Count 4.04 M/mm3 (4.2-5.4); White Blood Count 6.1 K/mm3 (4.5-10.0)
[2024-09-13 00:14] LABS: Alanine Aminotransferase 59 U/L (6-35); Albumin Level 4.1 g/dL (3.5-5.1); Alkaline Phosphatase 60 U/L (38-126); Anion Gap 9 mmol/L (4-12); Aspartate Amino Transferase 35 U/L (14-36); Bilirubin,Total 0.5 mg/dL (0.2-1.3); Blood Urea Nitrogen 12 mg/dL (7-17); Calcium 9.1 mg/dL (8.4-10.2); Carbon Dioxide 26 mmol/L (22-30); Chloride 103 mmol/L (98-107); Estimated CRCL calculation 67 ml/min; Estimated Glomerular Filt Rate > 60; Glucose 105 mg/dL (65-110); Potassium 3.5 mmol/L (3.4-5.0); Sodium 138 mmol/L (137-145)
--- NOTE | 2024-09-13 03:12 | ED.GENADULT ---
HPI - General Adult General Chief complaint: Ear Stated complaint: pain, discharge from ear Time Seen by Provider: 09/12/24 23:17 History of Present Illness HPI narrative: Patient is a 51-year-old female presents emergency department chief complaint of sinusitis ear infection. The patient has history of MRSA sinusitis and ear infections that has been seen by Dr. Peralta with ear nose and throat she has been treated with doxycycline last course was about a week ago the patient talked to Dr. Peralta and they discussed possibly doing a PICC line and IV vancomycin Related Data Home Medications Medication Instructions Recorded Confirmed sucralfate 1 gram tablet 1 g PO TID PRN Acid Reflux 08/02/21 09/03/24 ascorbic acid (vitamin C) 1,000 mg 1 g PO DAILY 05/12/22 09/03/24 tablet (Vitamin C) aspirin 81 mg tablet,delayed 81 mg PO DAILY 05/12/22 09/03/24 release prednisolone acetate 1 % eye 1 drp EACH EYE PRN PRN CROHN'S EYES 05/12/22 09/03/24 drops,suspension turmeric 100 mg-benjy 150 1 cap PO DAILY 05/12/22 09/03/24 mg-olive 50 mg-oreg 150 mg-capryl capsule vitamin B12 1,000 mcg-folic acid 1 tablet sublingual DAILY 05/12/22 09/03/24 400 mcg sublingual tablet dicyclomine 10 mg capsule 10 mg PO DAILY 07/19/23 09/03/24 hydrocortisone acetate 25 mg 25 mg RECTAL DAILY PRN CROHN'S EXAC 07/19/23 09/03/24 rectal suppository mercaptopurine 50 mg tablet 50 mg PO DAILY 07/19/23 09/03/24 sumatriptan succinate 50 mg tablet 50 mg PO ONCE PRN MIGRAINES 07/19/23 09/03/24 (Imitrex) tizanidine 2 mg capsule 2 mg PO TID PRN Pain (Scale Score 07/25/23 09/03/24 1-3) rosuvastatin 40 mg tablet 40 mg PO DAILY 10/18/23 09/03/24 calcium carbonate (Antacid 200 mg PO TID 02/22/24 09/03/24 (calcium carbonate)) calcium carbonate 600 mg PO BID 03/03/24 09/03/24 fluticasone furoate 100 1 inh inhalation DAILY 03/17/24 09/03/24 mcg-vilanterol 25 mcg/dose inhalation powder (Breo Ellipta) diphenoxylate-atropine 2.5 1 tablet PO QID PRN 07/09/24 09/03/24 mg-0.025 mg tablet hyoscyamine sulfate 0.125 mg 0.125 mg PO QID 07/09/24 09/03/24 disintegrating tablet Allergies Allergy/AdvReac Type Severity Reaction Status Date / Time metronidazole [From Flagyl] Allergy Severe GI bleeding Verified 09/12/24 19:03 Sulfa (Sulfonamide Allergy Severe GI Bleeding Verified 09/12/24 19:03 Antibiotics) sulfamethoxazole Allergy Unknown Verified 09/12/24 19:03 [From Bactrim] trimethoprim [From Bactrim] Allergy Unknown Verified 09/12/24 19:03 hydrocodone [From Vicodin] AdvReac Severe Vomiting Verified 09/12/24 19:03 oxycodone AdvReac Severe Hallucinati Verified 09/12/24 19:03 ng adhesive tape AdvReac Blister Verified 09/12/24 19:03 Review of Systems Review of Systems: A 10 system review of systems was completed on the patient and is negative except for what is stated in the HPI. Nursing and ancillary documentation was reviewed. [facility] Past Medical History Medical History Amputated toe of right foot Arnold-Chiari malformation Atrial fibrillation Crohn's disease Diabetes Factor V Leiden Fatigue Goblet cell carcinoid History of CVA (cerebrovascular accident) x3 History of TIA (transient ischemic attack) Insomnia Iron deficiency anemia Lumbar spondylosis Osteomyelitis Portal hypertension Portal vein thrombosis Restless leg syndrome Uveitis Surgical History Surgical History H/O shoulder surgery H/O sinus surgery H/O surgical amputation of finger History of appendectomy 05/2019 History of bowel resection History of ear surgery Family History Family History Other , Age 66 Heart attack Other Alzheimer disease Social History Social History Social History: 09/03/24 somewhat confident with medical forms/has received no assistance Smoking packs per day: 2 Smoking cigarettes per day: 40.0 Years smoked: 20 Smoking pack-years: 40.00 Smoking status: Former smoker Tobacco type: cigarettes Smoking end date: 10/23/15 Additional smoking assessment comments: Quit 2015. 35pk yr history Alcohol intake: never Substance use: former Substance use type: marijuana and amphetamines Other substance usage details: Marijuana tea daily Last use: 2014 Do You Feel Safe in your Home?: Yes Lack of Transportation: No Lack of Food: Often True Current Housing: I Have Housing Concerned About Future Housing: YES Difficulty Paying Gas/Electric Bills: YES Difficulty Paying for Meds: YES Currently Unemployed: YES Education: Bachelor's Degree Difficulty w/ Childcare or Family Care: YES Living arrangements: with family Occupation/Education: retired Spiritual care concerns: No Exam Narrative: GENERAL: Well-appearing, well-nourished, and in no acute distress. HEAD: Normocephalic, atraumatic. EYES: PERRLA and EOMI. ENT: Nares clear, no rhinorrhea or epistaxis. Mucous membranes moist. NECK: Supple. CHEST: Clear to auscultation. No respiratory distress. HEART: Regular rate and rhythm. No murmur heard. Normal peripheral pulses. ABDOMEN: Soft, nontender, nondistended, normal active bowel sounds. EXTREMITIES: Normal range of motion. No edema. SKIN: Warm, dry, no rash. NEURO: No focal deficits. Alert and oriented x3. PSYCH: Normal mood and affect. Course Vital Signs Vital signs: Vital Signs Temperature 36.7 C 09/12/24 18:57 Pulse Rate 85 09/12/24 18:57 Respiratory Rate 17 09/12/24 18:57 Blood Pressure 123/68 09/12/24 18:57 Pulse Oximetry 98 09/12/24 18:57 Oxygen Delivery Room Air 09/12/24 18:57 Temperature 36.7 C 09/12/24 18:57 Pulse Rate 80 09/12/24 22:15 Respiratory Rate 29 H 09/12/24 22:15 Blood Pressure 100/59 L 09/12/24 22:01 Pulse Oximetry 98 09/12/24 22:15 Oxygen Delivery Room Air 09/12/24 18:57 Medical Decision Making MDM Narrative Medical decision making narrative: Differential diagnosis includes sinusitis, otitis externa Laboratory studies were obtained on the patient showed a normal CBC CMP was within normal limits. The case was discussed with Dr. Peralta patient's learning technologist that has moved out of the area who recommended that the patient be started on IV antibiotics and set up for potential longer-term IV antibiotics ultimately showed follow-up with Dr. becerril and may need eventual referral to a tertiary care facility with both Infectious Disease and academic otolaryngology case was discussed with the hospitalist who given the patient's immune deficiency wanted to do IV vancomycin and IV antifungals preferably amphotericin. Vital Signs Vital Signs: Vital Signs Temperature 36.7 C 09/12/24 18:57 Pulse Rate 85 09/12/24 18:57 Respiratory Rate 17 09/12/24 18:57 Blood Pressure 123/68 09/12/24 18:57 Pulse Oximetry 98 09/12/24 18:57 Oxygen Delivery Room Air 09/12/24 18:57 Temperature 36.7 C 09/12/24 18:57 Pulse Rate 80 09/12/24 22:15 Respiratory Rate 29 H 09/12/24 22:15 Blood Pressure 100/59 L 09/12/24 22:01 Pulse Oximetry 98 09/12/24 22:15 Oxygen Delivery Room Air 09/12/24 18:57 Lab Data 09/12/24 23:53 09/12/24 23:53 Labs: Lab Results 09/12/24 Range/Units 23:53 WBC 6.1 (4.5-10.0) K/mm3 RBC 4.04 L (4.2-5.4) M/mm3 Hgb 12.8 (12.0-15.0) g/dL Hct 37.8 (37.0-47.0) % MCV 93.6 (80-100) fl MCH 31.7 (26-34) pg MCHC 33.9 (32-36) g/dl RDW 14.0 (11.5-14.5) % Plt Count 206 (150-375) k/mm3 MPV 10.7 H (7.4-10.4) fl Immature Gran % (Auto) 0.2 (0-0.5) % Neut % (Auto) 46.9 (45.5-73.1) % Lymph % (Auto) 40.6 (18.3-44.2) % [place] % (Auto) 8.6 H (2.6-8.5) % Eos % (Auto) 3.0 (0-4.4) % Baso % (Auto) 0.7 (0.2-1.2) % Lymph # (Auto) 2.46 (0.9-3.2) K/mm3 [place] # (Auto) 0.5 (0.1-0.6) K/mm3 Eos # (Auto) 0.2 (0-0.3) K/mm3 Baso # (Auto) 0.0 (0.0-0.1) K/mm3 Abs Immat Gran (auto) 0.01 (0.00-0.031) K/mm3 Absolute Neuts (auto) 2.9 (1.3-6.7) K/mm3 Absolute Nucleated RBC 0.000 (0.0-0.012) K/mm3 Nucleated RBC % 0.0 (0.0-0.2) % Sodium 138 (137-145) mmol/L Potassium 3.5 (3.4-5.0) mmol/L Chloride 103 (98-107) mmol/L Carbon Dioxide 26 (22-30) mmol/L Anion Gap 9 (4-12) mmol/L BUN 12 (7-17) mg/dL Creatinine 0.90 (0.7-1.0) mg/dL Estim Creat Clear Calc 67 ml/min Estimated GFR > 60 (59 - ) Glucose 105 (65-110) mg/dL Lactic Acid 1.0 (0.7-2.0) mmol/L Calcium 9.1 (8.4-10.2) mg/dL Total Bilirubin 0.5 (0.2-1.3) mg/dL AST 35 (14-36) U/L ALT 59 H (6-35) U/L Alkaline Phosphatase 60 (38-126) U/L Total Protein 7.0 (6.3-8.2) g/dL Albumin 4.1 (3.5-5.1) g/dL Discharge Plan Discharge Clinical Impression: Sinusitis Patient Disposition: Still a Patient Condition: Stable
[2024-09-13] MEDS: MORPHINE SULFATE (*CRX) 2 MG/ML INJ IV PUSH (03:24)
[2024-09-13 05:11] VITALS: BP 171/86; PULSE 87; RESP 14; TEMP 36.6; O2SAT 98
--- NOTE | 2024-09-13 05:18 | PC.NURSE ---
floor rn notified that patient removed hospital gown and monitor and put self back in her own clothes.
[2024-09-13 05:50] VITALS: BMI 30.2
[2024-09-13] MEDS: VANCOMYCIN 2,000 MG/NS 500 ML 2,000 MG/500 ML BAG 250 MG IVPB (05:57)
[2024-09-13 06:00] VITALS: BP 132/68; PULSE 60; RESP 18; TEMP 36.2; O2SAT 100
--- NOTE | 2024-09-13 06:08 | ADMGEN ---
This patient, Danette Thomas, was admitted to 2 Medical Room 260-. Patient/family oriented to hospital policies and general routines including ID bracelet, bed and alarms, visiting hours, pain management, procedures, bathroom and other care routines, personal items, smoking policy, room service/diet, and visiting hours. Information on how to activate the Rapid Response Team has been discussed. Patient/Family are encouraged to report perceived risks to care and to ask questions if they do not understand what they are told or what they should do.
[2024-09-13 10:11] LABS: MRSA (PCR) NOT DETECTED (NOT DETECTE)
--- NOTE | 2024-09-13 10:21 | PM.IMHP ---
H&P: HPI History of Present Illness Date/Time: 09/13/24 10:21 Chief Complaint: Ear pain and drainage Narrative: Patient presented to the ER with reports of drainage to her left ear that she describes as greenish and thick. Patient has a Hx of chronic sinusitis with a history of MRSA sinusitis and ear infections that has been seen by Dr. Peralta with ear nose and throat. She has been treated with doxycycline last course was about a week ago the patient talked to Dr. Peralta and they discussed possibly doing a PICC line and IV vancomycin. Patient's case was discussed with Dr. Peralta, patient's rehab tech that has moved out of the area who recommended that the patient be started on IV antibiotics and set up for potential longer-term IV antibiotics and ultimately should follow-up with Dr. Lucas. Patient may need eventual referral to a tertiary care facility with both Infectious Disease and academic otolaryngology per Dr. Peralta. Review of Systems Review of Systems: All systems reviewed & are unremarkable except as noted in HPI and below PMFSH Past Medical History Medical History Amputated toe of right foot Arnold-Chiari malformation Atrial fibrillation Crohn's disease Diabetes Factor V Leiden Fatigue Goblet cell carcinoid History of CVA (cerebrovascular accident) x3 History of TIA (transient ischemic attack) Insomnia Iron deficiency anemia Lumbar spondylosis Osteomyelitis Portal hypertension Portal vein thrombosis Restless leg syndrome Uveitis Surgical History Surgical History H/O shoulder surgery H/O sinus surgery H/O surgical amputation of finger History of appendectomy 05/2019 History of bowel resection History of ear surgery Family History Family History Other , Age 66 Heart attack Other Alzheimer disease Social History Social History Social History: 09/03/24 somewhat confident with medical forms/has received no assistance Smoking packs per day: 2 Smoking cigarettes per day: 40.0 Years smoked: 20 Smoking pack-years: 40.00 Smoking status: Former smoker Tobacco type: cigarettes Smoking end date: 10/23/15 Additional smoking assessment comments: Quit 2015. 35pk yr history Alcohol intake: former Substance use: former Substance use type: marijuana Other substance usage details: Marijuana tea daily Last use: 09/11 Do You Feel Safe in your Home?: Yes Lack of Transportation: No Lack of Food: Sometimes True Current Housing: I Have Housing Concerned About Future Housing: YES Difficulty Paying Gas/Electric Bills: YES Difficulty Paying for Meds: YES Currently Unemployed: No Education: Decline to Answer Difficulty w/ Childcare or Family Care: No Living arrangements: with family Occupation/Education: retired Spiritual care concerns: No Meds Home Medications and Allergies Home Medications Medication Instructions Recorded Confirmed Type sucralfate 1 gram tablet 1 g PO TID PRN Acid Reflux 08/02/21 09/13/24 History adalimumab 40 mg/0.8 mL See Rx Instructions subcut .Every 10/24/21 09/13/24 Rx subcutaneous pen kit (Humira Pen) other Week #2 ea pantoprazole 40 mg tablet,delayed 40 mg PO QAM #90 tabs 01/09/22 09/13/24 Rx release ascorbic acid (vitamin C) 1,000 mg 1 g PO DAILY 05/12/22 09/13/24 History tablet (Vitamin C) aspirin 81 mg tablet,delayed 81 mg PO DAILY 05/12/22 09/13/24 History release turmeric 100 mg-benjy 150 1 cap PO DAILY 05/12/22 09/13/24 History mg-olive 50 mg-oreg 150 mg-capryl capsule hydrocortisone acetate 25 mg 25 mg RECTAL DAILY PRN CROHN'S EXAC 07/19/23 09/13/24 History rectal suppository mercaptopurine 50 mg tablet 50 mg PO DAILY 07/19/23 09/13/24 History sumatriptan succinate 50 mg tablet 50 mg PO ONCE PRN MIGRAINES 07/19/23 09/13/24 History (Imitrex) tizanidine 2 mg capsule 2 mg PO TID 07/25/23 09/13/24 History rosuvastatin 40 mg tablet 40 mg PO DAILY 10/18/23 09/13/24 History ondansetron 4 mg disintegrating See Rx Instructions .Route 12/28/23 09/13/24 Rx tablet .COMPLEX #30 tabs ropinirole 1 mg tablet 1 mg PO DAILY #30 tabs 01/21/24 09/13/24 Rx albuterol sulfate 90 mcg/actuation 2 inh inhalation Q4H PRN shortness 03/03/24 09/13/24 Rx aerosol inhaler of breath or wheezing #6.7 grams eszopiclone 3 mg tablet 3 mg PO QHS #30 tabs 05/12/24 09/13/24 Rx cholecalciferol (vitamin D3) 1,250 See Rx Instructions .Route 06/02/24 09/13/24 Rx mcg (50,000 unit) capsule .COMPLEX #12 caps albuterol sulfate 2.5 mg/3 mL 2.5 mg (3 mL) inhalation Q4-6H PRN 06/09/24 09/13/24 Rx (0.083 %) solution for nebulization shortness of breath or wheezing #90 mL alprazolam 0.5 mg tablet 0.5 mg PO BID #60 tabs 06/17/24 09/13/24 Rx apixaban 5 mg tablet (Eliquis) 5 mg PO BID #60 tabs 06/17/24 09/13/24 Rx hyoscyamine sulfate 0.125 mg 0.125 mg PO QID 07/09/24 09/13/24 History disintegrating tablet oxycodone-acetaminophen 10 mg-325 1 tablet PO Q8H PRN pain #90 tabs 08/26/24 09/13/24 Rx mg tablet paroxetine HCl 40 mg tablet (Paxil) 40 mg PO HS 09/13/24 09/13/24 History prednisone 20 mg tablet 2.5 mg PO DAILY 09/13/24 09/13/24 History Allergies Allergy/AdvReac Type Severity Reaction Status Date / Time metronidazole [From Flagyl] Allergy Severe GI bleeding Verified 09/12/24 19:03 Sulfa (Sulfonamide Allergy Severe GI Bleeding Verified 09/12/24 19:03 Antibiotics) sulfamethoxazole Allergy Unknown Verified 09/12/24 19:03 [From Bactrim] trimethoprim [From Bactrim] Allergy Unknown Verified 09/12/24 19:03 hydrocodone [From Vicodin] AdvReac Severe Vomiting Verified 09/12/24 19:03 adhesive tape AdvReac Blister Verified 09/12/24 19:03 Vital Signs Vital Signs - 24 hr 09/12/24 18:57 09/12/24 21:53 09/12/24 21:54 Temperature 98.1 F Pulse Rate 85 75 Respiratory Rate 17 14 Blood Pressure 123/68 113/61 Pulse Oximetry 98 100 100 Oxygen Delivery Room Air 09/12/24 22:00 09/12/24 22:01 09/12/24 22:15 Temperature Pulse Rate 74 67 80 Respiratory Rate 15 13 29 H Blood Pressure 100/59 L Pulse Oximetry 95 97 98 Oxygen Delivery 09/13/24 05:11 09/12/24 22:30 09/12/24 22:33 Temperature 97.9 F Pulse Rate 87 79 76 Respiratory Rate 14 16 16 Blood Pressure 171/86 H 112/95 H Pulse Oximetry 98 97 97 Oxygen Delivery 09/12/24 22:45 09/12/24 23:00 09/13/24 06:00 Temperature 97.2 F L Pulse Rate 72 66 60 Respiratory Rate 15 14 18 Blood Pressure 132/68 Pulse Oximetry 97 100 Oxygen Delivery Exam Narrative: GENERAL: Well-appearing, well-nourished, and in no acute distress. HEAD: Normocephalic, atraumatic. EARS:Intact with no drainage noted. EYES: PERRLA and EOMI. ENT: Nares clear, no rhinorrhea or epistaxis. Mucous membranes moist. NECK: Supple. CHEST: Clear to auscultation. No respiratory distress. HEART: Regular rate and rhythm. No murmurs heard. Normal peripheral pulses. ABDOMEN: Soft, nontender, nondistended, normal active bowel sounds. EXTREMITIES: Normal range of motion. No edema. SKIN: Warm, dry, no rash. NEURO: No focal deficits. Alert and oriented x3. PSYCH: Patient very upset about not getting her home meds on time. H&P: Results Labs Labs: Short CBC 09/12/24 Range/Units 23:53 WBC 6.1 (4.5-10.0) K/mm3 Hgb 12.8 (12.0-15.0) g/dL Hct 37.8 (37.0-47.0) % Plt Count 206 (150-375) k/mm3 [facility] 09/12/24 23:53 Sodium 138 Potassium 3.5 Chloride 103 Carbon Dioxide 26 BUN 12 Creatinine 0.90 Glucose 105 Calcium 9.1 Liver Function 09/12/24 Range/Units 23:53 Total Bilirubin 0.5 (0.2-1.3) mg/dL AST 35 (14-36) U/L ALT 59 H (6-35) U/L Alkaline Phosphatase 60 (38-126) U/L Albumin 4.1 (3.5-5.1) g/dL Assessment and Plan Assessment and plan (1) Sinusitis: Code(s): J32.9 - Chronic sinusitis, unspecified Status: Acute Assessment and Plan: - Acute on Chronic. - Started on Vancomycin and Fluconazole. - May need long-term IV abx per pt's previous ENT. - Monitor labs closely with IV abx. -Consider referring patient to a higher level of care per ENT recommendations. - Hold Humira and PO steroids for now with possible active infection. (2) Factor V Leiden: Code(s): D68.51 - Activated protein C resistance Status: Acute Assessment and Plan: - Continue Apixaban. (3) COPD (chronic obstructive pulmonary disease): Qualifiers: COPD type: unspecified COPD Qualified Code(s): J44.9 - Chronic obstructive pulmonary disease, unspecified Code(s): J44.9 - Chronic obstructive pulmonary disease, unspecified Status: Acute Assessment and Plan: - Stable. - Bronchodilators PRN. (4) History of TIA (transient ischemic attack): Code(s): Z86.73 - Personal history of transient ischemic attack (TIA), and cerebral infarction without residual deficits Status: Acute Assessment and Plan: - Continue Apixaban, aspirin and statin. (5) Atrial fibrillation: Qualifiers: Atrial fibrillation type: unspecified chronic Qualified Code(s): I48.20 - Chronic atrial fibrillation, unspecified Code(s): I48.91 - Unspecified atrial fibrillation Status: Acute Assessment and Plan: - Apixaban resumed. - Patient not on any rate control medications. (6) Portal vein thrombosis: Code(s): I81 - Portal vein thrombosis Status: Acute Assessment and Plan: - Continue Apixaban. (7) Migraine: Qualifiers: Migraine type: migraine (< 15 days per month) without aura Status migrainosus presence: with status migrainosus Intractability: intractable Qualified Code(s): G43.011 - Migraine without aura, intractable, with status migrainosus Code(s): G43.909 - Migraine, unspecified, not intractable, without status migrainosus Status: Acute Assessment and Plan: - [place] and sumatriptan PRN. (8) Crohn's disease: Qualifiers: Digestive disease complication type: without complication Gastrointestinal tract location: unspecified location Qualified Code(s): K50.90 - Crohn's disease, unspecified, without complications Code(s): K50.90 - Crohn's disease, unspecified, without complications Status: Acute Assessment and Plan: - Holding Humira and PO steroids for now with possible infection. Plan - Patient being treated with IV Vancomycin and Fluconazole for now. - Monitor changes in patient's progress. Hospitalist MIPS Advance Care Plan I have confirmed that the patient's Advanced Care Plan is present, code status is documented, or surrogate decision maker is listed in patient medical record.: Yes Medication Reconciliation I have utilized all available resources to obtain, update and review the patients current medications (includes all prescriptions, OTC, herbals, cannabis, and nutritional supplements).: Yes
--- NOTE | 2024-09-13 10:30 | PC.NURSE ---
Patient very upset/angry. Patient yelling at myself and Okeyo at the bedside I don't understand why I have to be in pain while in the hospital, aren't you supposed to be helping me? I am leaving when my gets here later. I called 30 minutes ago to get in the shower. I can take care of myself better at home than you can here. I notified the patient that I had already spoken to the provider around 1000 regarding her migraine pain. Provider then went to see patient and placed orders for medications. Myself and provider explained to patient that pharmacy is verifying the medications to then be administered. When I returned to patient's room at 1040 to administer pain medication as well as other morning medications, patient refused to take entire percocet tablet. Requested that I break it in half. I then broke tablet in half, patient stated If I take the entire thing it will make me feel high. I only take half at home. I reviewed the medications that I was going to be administering to patient and also educated her that the provider would like me to administer fluconazole through her IV instead of the amphotericin B which had been ordered earlier this morning. Patient stated I was supposed to get vanco and never got it from last night to which I responded to her and said that the vancomycin was administered to her earlier this morning to cover bacterial infection and the fluconazole was to cover fungal infection. Patient stated I don't want anymore IVs from this place, I am going home when my gets here. I hate this medical life that I have to live. I then sat with the patient and let her know that I want to make her more comfortable and to make sure she is getting the best care. I asked if there is anything else I can do to help her? Patient then stuck her arm out and said just give me the IV. I don't want to argue with my when she gets here, so I will just do whatever you say. I explained to the patient that she has the right to refuse any medication and that I do not feel comfortable administering the medication as this time. Patient then stuck her arm out and stated Please give me the medication in my IV for my infection. That is what I came for. I then began the fluconazole infusion. patient requested to take a rest after pain medication. patient also requested that I get her prednisone 2.5 mg daily restarted. I let her know that I would call the provider.
[2024-09-13] MEDS: PANTOPRAZOLE 40 MG TABLET PO (10:40)
[2024-09-13] MEDS: APIXABAN 5 MG TABLET PO ×2 (10:40→18:01)
[2024-09-13] MEDS: ASPIRIN 81 MG ENTERIC TABLET PO (10:40)
[2024-09-13] MEDS: ASCORBIC ACID 500 MG TABLET 1000 MG PO (10:40)
[2024-09-13] MEDS: rOPINIRole HCL 1 MG TABLET PO (10:40)
[2024-09-13] MEDS: oxyCODONE/ACETAMINOPHEN (*CRX) 10-325 MG TABLET 1 TAB PO (10:40)
[2024-09-13] MEDS: HYOSCYAMINE SULFATE 0.125 MG TABLET PO ×2 (10:40→21:12)
[2024-09-13] MEDS: SUMAtriptan SUCCINATE 25 MG TABLET 50 MG PO (10:41)
[2024-09-13] MEDS: FLUCONAZOLE 400 MG/NACL 200 ML 400 MG/200 ML BAG 100 MG IVPB (11:02)
[2024-09-13] MEDS: TIZANIDINE HCL 2 MG TABLET PO ×2 (11:08→18:01)
[2024-09-13] MEDS: predniSONE 2.5 MG TABLET PO (11:28)
[2024-09-13 13:39] VITALS: BP 114/54; PULSE 62; RESP 18; TEMP 36.4; O2SAT 98
[2024-09-13 20:45] VITALS: BP 107/67; PULSE 60; RESP 18; TEMP 36.1; O2SAT 100
[2024-09-13] MEDS: PARoxetine 20 MG TABLET 40 MG PO (21:12)
[2024-09-13] MEDS: oxyCODONE/ACETAMINOPHEN (*CRX) 5-325 MG TABLET 1 TABLET PO (21:13)
[2024-09-13] MEDS: ALPRAZolam (*CRX) 0.5 MG TABLET PO (21:13)
[2024-09-13] MEDS: VANCOMYCIN 1,500 MG/NS 500 ML 1,500 MG/500 ML BAG 150 MG IVPB (22:07)
[2024-09-14 05:58] LABS: Hematocrit 39.5 % (37.0-47.0); Hemoglobin 12.6 g/dL (12.0-15.0); Mean Corpuscular HGB Conc 31.9 g/dl (32-36); Mean Corpuscular Hemoglobin 30.9 pg (26-34); Mean Corpuscular Volume 96.8 fl (80-100); Mean Platelet Volume 10.6 fl (7.4-10.4); Platelet Count Result 206 k/mm3 (150-375); Red Blood Count 4.08 M/mm3 (4.2-5.4); Red Cell Distribution Width 14.3 % (11.5-14.5); White Blood Count 4.4 K/mm3 (4.5-10.0)
[2024-09-14 06:00] VITALS: BP 120/66; PULSE 56; RESP 16; TEMP 36.3; O2SAT 99
[2024-09-14 06:14] LABS: Alanine Aminotransferase 60 U/L (6-35); Albumin Level 3.9 g/dL (3.5-5.1); Alkaline Phosphatase 55 U/L (38-126); Anion Gap 4 mmol/L (4-12); Aspartate Amino Transferase 40 U/L (14-36); Bilirubin,Total 0.6 mg/dL (0.2-1.3); Blood Urea Nitrogen 9 mg/dL (7-17); Calcium 9.4 mg/dL (8.4-10.2); Carbon Dioxide 31 mmol/L (22-30); Chloride 105 mmol/L (98-107); Estimated CRCL calculation 68 ml/min; Estimated Glomerular Filt Rate > 60; Glucose 88 mg/dL (65-110); Sodium 140 mmol/L (137-145)
[2024-09-14 08:38] VITALS: O2SAT 97
[2024-09-14] MEDS: METOCLOPRAMIDE HCL INJ 10 MG/2 ML VIAL 5 MG IV PUSH (09:28)
[2024-09-14] MEDS: ASPIRIN 81 MG ENTERIC TABLET PO (10:22)
[2024-09-14] MEDS: predniSONE 2.5 MG TABLET PO (10:22)
[2024-09-14] MEDS: APIXABAN 5 MG TABLET PO ×2 (10:22→17:43)
[2024-09-14] MEDS: rOPINIRole HCL 1 MG TABLET PO (10:23)
[2024-09-14] MEDS: HYOSCYAMINE SULFATE 0.125 MG TABLET PO ×3 (10:23→20:25)
[2024-09-14] MEDS: TIZANIDINE HCL 2 MG TABLET PO ×2 (10:23→17:43)
[2024-09-14] MEDS: ASCORBIC ACID 500 MG TABLET 1000 MG PO (10:23)
[2024-09-14] MEDS: PANTOPRAZOLE 40 MG TABLET PO (10:23)
[2024-09-14] MEDS: ERGOCALCIFEROL 50,000 UNITS CAPSULE 50000 UNITS PO (10:42)
[2024-09-14] MEDS: FLUCONAZOLE 400 MG/NACL 200 ML 400 MG/200 ML BAG 100 MG IVPB (10:42)
[2024-09-14] MEDS: oxyCODONE/ACETAMINOPHEN (*CRX) 5-325 MG TABLET 1 TABLET PO ×2 (10:49→22:17)
--- NOTE | 2024-09-14 13:12 | PM.IMPN ---
Progress Note: A&P Assessment and Plan (1) Sinusitis: Code(s): J32.9 - Chronic sinusitis, unspecified Status: Acute Assessment and Plan: - Acute on Chronic. - Continue Vancomycin and Fluconazole for now. - May need long-term IV abx per pt's previous ENT. - Monitor labs closely with IV abx. -Consider referring patient to a higher level of care per ENT recommendations. - Hold Humira for now with possible active infection. (2) Factor V Leiden: Code(s): D68.51 - Activated protein C resistance Status: Acute Assessment and Plan: - Continue Apixaban. (3) COPD (chronic obstructive pulmonary disease): Qualifiers: COPD type: unspecified COPD Qualified Code(s): J44.9 - Chronic obstructive pulmonary disease, unspecified Code(s): J44.9 - Chronic obstructive pulmonary disease, unspecified Status: Acute Assessment and Plan: - Stable. - Bronchodilators PRN. (4) History of TIA (transient ischemic attack): Code(s): Z86.73 - Personal history of transient ischemic attack (TIA), and cerebral infarction without residual deficits Status: Acute Assessment and Plan: - Continue Apixaban, aspirin and statin. (5) Atrial fibrillation: Qualifiers: Atrial fibrillation type: unspecified chronic Qualified Code(s): I48.20 - Chronic atrial fibrillation, unspecified Code(s): I48.91 - Unspecified atrial fibrillation Status: Acute Assessment and Plan: - Apixaban resumed. - Patient not on any rate control medications. (6) Portal vein thrombosis: Code(s): I81 - Portal vein thrombosis Status: Acute Assessment and Plan: - Continue Apixaban. (7) Migraine: Qualifiers: Migraine type: migraine (< 15 days per month) without aura Status migrainosus presence: with status migrainosus Intractability: intractable Qualified Code(s): G43.011 - Migraine without aura, intractable, with status migrainosus Code(s): G43.909 - Migraine, unspecified, not intractable, without status migrainosus Status: Acute Assessment and Plan: - [place] and sumatriptan PRN. (8) Crohn's disease: Qualifiers: Digestive disease complication type: without complication Gastrointestinal tract location: unspecified location Qualified Code(s): K50.90 - Crohn's disease, unspecified, without complications Code(s): K50.90 - Crohn's disease, unspecified, without complications Status: Acute Assessment and Plan: - Holding Humira for now. - Patient on low dose prednisone 2.5 mg daily. Plan - Patient being treated with IV Vancomycin and Fluconazole for now. - Monitor changes in patient's progress. Time Spent With Patient Time with patient: 25 - 35 minutes Subjective Date/time seen: 09/14/24 13:12 Interval history: Patient presented to the ER with reports of drainage to her left ear that she describes as greenish and thick. Patient has a Hx of chronic sinusitis with a history of MRSA sinusitis and ear infections and was seen previously by Dr. Peralta ENT. She was previously treated with doxycycline last course about a week ago the patient talked to Dr. Peralta and they discussed possibly doing a PICC line and long-term IV vancomycin. Patient's case was discussed with Dr. Peralta, patient's previous ENT that has moved out of this area and he recommended IV antibiotics and possibly set up for possible longer-term IV antibiotics. Long-term ultimately pt should follow-up with Dr. Lucas, ENT. Per ENT Dr. Peralta, Patient may need eventual referral to a tertiary care facility with both Infectious Disease and academic otolaryngology. Review of Systems Review of Systems: All systems reviewed & are unremarkable except as noted in HPI and below Exam Narrative: GENERAL: Well-appearing, well-nourished, and in no acute distress. HEAD: Normocephalic, atraumatic. EARS:Clean and intact with no drainage noted. EYES: PERRLA and EOMI. ENT: Nares clear, no rhinorrhea or epistaxis. Mucous membranes moist. NECK: Supple. CHEST: Clear to auscultation. No respiratory distress. HEART: Regular rate and rhythm. No murmurs heard. Normal peripheral pulses. ABDOMEN: Soft, nontender, nondistended, normal active bowel sounds. EXTREMITIES: Normal range of motion. No edema. SKIN: Warm, dry, no rash. NEURO: No focal deficits. Alert and oriented x3. PSYCH: Calm and co-operative. Objective Data Vital Signs Vital Signs: Vital Signs - 24 hr 09/13/24 13:39 09/13/24 20:45 09/13/24 20:00 Temperature 97.6 F 97.0 F L Pulse Rate 62 60 Respiratory Rate 18 18 Blood Pressure 114/54 L 107/67 Pulse Oximetry 98 100 Oxygen Delivery Room Air Fraction of Inspired Oxygen 09/14/24 06:00 09/14/24 08:38 Temperature 97.4 F L Pulse Rate 56 L Respiratory Rate 16 Blood Pressure 120/66 Pulse Oximetry 99 97 Oxygen Delivery Room Air Fraction of Inspired Oxygen 21 Intake/Output Intake/Output: Intake & Output 09/11/24 09/12/24 09/13/24 09/14/24 23:59 23:59 23:59 23:59 Intake Total 660 1740 Balance 660 1740 Meds/Results Medications: Active Medications Generic Name Dose Route Start Last Admin Trade Name Freq PRN Reason Stop Dose Admin Acetaminophen 650 mg 09/13/24 03:48 Acetaminophen 325 Mg Tablet PO Q4H PRN Mild Pain (1-3) or Fever Alprazolam 0.5 mg 09/13/24 09:00 09/14/24 10:25 Alprazolam (*Crx) 0.5 Mg Tablet PO Not Given BID RGEGG Apixaban 5 mg 09/13/24 10:15 09/14/24 10:22 Apixaban 5 Mg Tablet PO 5 mg BID GREGG Administration Ascorbic Acid 1,000 mg 09/13/24 10:25 09/14/24 10:23 Ascorbic Acid 500 Mg Tablet PO 1,000 mg DAILY GREGG Administration Aspirin 81 mg 09/13/24 10:25 09/14/24 10:22 Aspirin 81 Mg Enteric Tablet PO 81 mg DAILY GREGG Administration Ergocalciferol 50,000 units 09/14/24 09:00 09/14/24 10:42 Ergocalciferol 50,000 Units Capsule PO 50,000 units Nava@0900 GREGG Administration Hyoscyamine 0.125 mg 09/13/24 10:25 09/14/24 10:23 Hyoscyamine Sulfate 0.125 Mg Tablet PO 0.125 mg QID GREGG Administration Vancomycin HCl 1,500 mg in 500 mls @ 250 mls/hr 09/13/24 23:00 09/14/24 01:27 Vancomycin 1,500 Mg/Ns 500 Ml IVPB Infused Q18H GREGG Infusion Fluconazole 400 mg in 200 mls @ 100 mls/hr 09/14/24 09:00 09/14/24 12:42 Diflucan 400 Mg/Nacl 200 Ml IVPB Infused DAILY GREGG Infusion Mercaptopurine 50 mg 09/14/24 09:00 09/14/24 12:44 Mercaptopurine 50 Mg Tablet PO Not Given DAILY GREGG Metoclopramide HCl 5 mg 09/14/24 08:51 09/14/24 09:28 Metoclopramide Hcl Inj 10 Mg/2 Ml Vial IV PUSH 5 mg Q6HR PRN Administration Nausea And Vomiting Morphine Sulfate 2 mg 09/13/24 03:48 Morphine Sulfate (*Crx) 2 Mg/Ml Inj IV PUSH Q2H PRN Pain Rated 7-10 Non-Formulary Medication 3 mg 09/13/24 21:00 Eszopiclone PO 10/13/24 20:59 QHS GREGG Oxycodone/Acetaminophen 1 tablet 09/13/24 20:33 09/14/24 10:49 Oxycodone/Acetaminophen (*Crx) 5-325 Mg Tablet PO 1 tablet Q4H PRN Administration Pain Rated 7-10 Pantoprazole Sodium 40 mg 09/13/24 10:25 09/14/24 10:23 Pantoprazole 40 Mg Tablet PO 40 mg QAM GREGG Administration Paroxetine HCl 40 mg 09/13/24 21:00 09/13/24 21:12 Paroxetine 20 Mg Tablet PO 40 mg HS GREGG Administration Prednisone 2.5 mg 09/13/24 08:00 09/14/24 10:22 Prednisone 2.5 Mg Tablet PO 2.5 mg DAILY@0800 GREGG Administration Ropinirole HCl 1 mg 09/13/24 10:25 09/14/24 10:23 Ropinirole Hcl 1 Mg Tablet PO 1 mg DAILY GREGG Administration Rosuvastatin Calcium 40 mg 09/14/24 21:00 Rosuvastatin 20 Mg Tablet PO HS GREGG Sucralfate 1 gm 09/13/24 10:10 Sucralfate 1 Gm Tablet PO TID PRN Acid Reflux Sumatriptan Succinate 50 mg 09/13/24 10:10 09/13/24 10:41 Sumatriptan Succinate 25 Mg Tablet PO 50 mg ONCE PRN Administration MIGRAINES Tizanidine HCl 2 mg 09/13/24 10:30 09/14/24 10:23 Tizanidine Hcl 2 Mg Tablet PO 10/13/24 10:29 2 mg TID GREGG Administration Radiology Results: ITS Impressions Sinuses CT 09/13/24 07:27 IMPRESSION: 1. Chronic sinusitis. 2. Rightward deviation of the nasal septum. 3. Bilateral otomastoid effusions. 4. Dental disease. Labs Labs: Laboratory Results - last 24 hr 09/14/24 05:22 WBC 4.4 L RBC 4.08 L Hgb 12.6 Hct 39.5 MCV 96.8 MCH 30.9 MCHC 31.9 L RDW 14.3 Plt Count 206 MPV 10.6 H Sodium 140 Potassium 4.0 Chloride 105 Carbon Dioxide 31 H Anion Gap 4 BUN 9 Creatinine 0.90 Estim Creat Clear Calc 68 Estimated GFR > 60 Glucose 88 Calcium 9.4 Total Bilirubin 0.6 AST 40 H ALT 60 H Alkaline Phosphatase 55 Total Protein 7.0 Albumin 3.9 Quality VTE Prophylaxis VTE prophylaxis: pharmacologic ordered Hospitalist MIPS Advance Care Plan I have confirmed that the patient's Advanced Care Plan is present, code status is documented, or surrogate decision maker is listed in patient medical record.: Yes Medication Reconciliation I have utilized all available resources to obtain, update and review the patients current medications (includes all prescriptions, OTC, herbals, cannabis, and nutritional supplements).: Yes
[2024-09-14 15:47] VITALS: BP 107/65; PULSE 68; RESP 18; TEMP 36.8; O2SAT 100
[2024-09-14 16:52] LABS: Vancomycin Trough 12.9 ug/mL (10.0-20.0)
[2024-09-14] MEDS: ALPRAZolam (*CRX) 0.5 MG TABLET PO (17:45)
[2024-09-14] MEDS: VANCOMYCIN 1,250 MG/NS 250 ML 1,250 MG/250 ML BAG 166.67 MG IVPB (17:48)
[2024-09-14] MEDS: PARoxetine 20 MG TABLET 40 MG PO (20:24)
[2024-09-14] MEDS: ROSUVASTATIN 20 MG TABLET 40 MG PO (20:25)
[2024-09-14] MEDS: MERCAPTOPURINE 50 MG TABLET PO (20:25)
[2024-09-14 21:01] VITALS: BP 106/70; PULSE 60; RESP 16; TEMP 36.4; O2SAT 100
[2024-09-15] MEDS: VANCOMYCIN 1,250 MG/NS 250 ML 1,250 MG/250 ML BAG 166 MG IVPB (05:25)
[2024-09-15 06:01] VITALS: BP 116/65; PULSE 67; RESP 18; TEMP 36.4; O2SAT 100
[2024-09-15 06:38] LABS: Estimated CRCL calculation 62 ml/min; Estimated Glomerular Filt Rate 58
[2024-09-15 07:41] LABS: Alanine Aminotransferase 46 U/L (6-35); Albumin Level 3.7 g/dL (3.5-5.1); Alkaline Phosphatase 49 U/L (38-126); Anion Gap 7 mmol/L (4-12); Aspartate Amino Transferase 31 U/L (14-36); Bilirubin,Total 0.3 mg/dL (0.2-1.3); Blood Urea Nitrogen 10 mg/dL (7-17); Calcium 9.1 mg/dL (8.4-10.2); Carbon Dioxide 29 mmol/L (22-30); Chloride 106 mmol/L (98-107); Estimated CRCL calculation 62 ml/min; Estimated Glomerular Filt Rate 58; Glucose 80 mg/dL (65-110); Potassium 4.2 mmol/L (3.4-5.0); Sodium 142 mmol/L (137-145)
[2024-09-15 08:11] LABS: Basophils Percent Auto 0.8 % (0.2-1.2); Eosinophils Absolute Auto 0.2 K/mm3 (0-0.3); Eosinophils Percent Auto 4.7 % (0-4.4); Hematocrit 36.9 % (37.0-47.0); Immature Granulocyte Absolute 0.01 K/mm3 (0.00-0.031); Immature Granulocyte Percent A 0.2 % (0-0.5); Lymphocytes Absolute Auto 2.66 K/mm3 (0.9-3.2); Lymphocytes Percent Auto 52.6 % (18.3-44.2); Mean Corpuscular HGB Conc 32.5 g/dl (32-36); Mean Corpuscular Hemoglobin 31.3 pg (26-34); Mean Corpuscular Volume 96.1 fl (80-100); Mean Platelet Volume 10.8 fl (7.4-10.4); Monocytes Absolute Auto 0.4 K/mm3 (0.1-0.6); Monocytes Percent Auto 8.3 % (2.6-8.5); Neutrophils Absolute Auto 1.7 K/mm3 (1.3-6.7); Neutrophils Percent Auto 33.4 % (45.5-73.1); Platelet Count Result 216 k/mm3 (150-375); Red Blood Count 3.84 M/mm3 (4.2-5.4); Red Cell Distribution Width 14.5 % (11.5-14.5); White Blood Count 5.1 K/mm3 (4.5-10.0)
[2024-09-15] MEDS: oxyCODONE/ACETAMINOPHEN (*CRX) 5-325 MG TABLET 1 TABLET PO ×2 (08:44→21:28)
[2024-09-15] MEDS: ASCORBIC ACID 500 MG TABLET 1000 MG PO (08:44)
[2024-09-15] MEDS: TIZANIDINE HCL 2 MG TABLET PO ×3 (08:44→17:28)
[2024-09-15] MEDS: ALPRAZolam (*CRX) 0.5 MG TABLET PO ×2 (08:45→17:28)
[2024-09-15] MEDS: HYOSCYAMINE SULFATE 0.125 MG TABLET PO ×4 (08:45→21:29)
[2024-09-15] MEDS: APIXABAN 5 MG TABLET PO ×2 (08:45→17:28)
[2024-09-15] MEDS: ASPIRIN 81 MG ENTERIC TABLET PO (08:45)
[2024-09-15] MEDS: predniSONE 2.5 MG TABLET PO (08:45)
[2024-09-15] MEDS: PANTOPRAZOLE 40 MG TABLET PO (08:45)
[2024-09-15] MEDS: rOPINIRole HCL 1 MG TABLET PO (08:45)
[2024-09-15] MEDS: FLUCONAZOLE 100 MG TABLET 400 MG PO (09:56)
[2024-09-15] MEDS: CIPROFLOXACIN HC OTIC 10 ML 3 DROP LEFT EAR ×2 (09:57→21:29)
[2024-09-15] MEDS: LINEZOLID 600 MG TABLET PO ×2 (09:57→21:29)
[2024-09-15] MEDS: SACCHAROMYCES BOULARDII 250 MG CAPSULE PO ×2 (12:21→17:28)
--- NOTE | 2024-09-15 13:32 | P.PNIM_ITS ---
Progress Note: A&P Assessment and Plan (1) Sinusitis: Code(s): J32.9 - Chronic sinusitis, unspecified Status: Acute Assessment and Plan: - Acute on Chronic. - Continue Vancomycin and Fluconazole for now. - May need long-term IV abx per pt's previous ENT. - Monitor labs closely with IV abx. -Consider referring patient to a higher level of care per ENT recommendations. - Hold Humira for now with possible active infection. 09/15/24: * Change Vanc and Fluconazole to oral Linezolid and Diflucan. * Pt's blood cultures are negative thus far. * She does not meet SIRS/Sepsis criteria * Culture of left ear otorrhea obtained. * Ciprodex HC ordered to left ear Q12 hrs. * Hold Humira. * No evidence for needing higher level of care at this time. Pt will need follow up with ENT as outpatient. * Trend labs and consider repeat imaging of head if any declination in overall condition. (2) Factor V Leiden: Code(s): D68.51 - Activated protein C resistance Status: Chronic Assessment and Plan: - Continue Apixaban. 09/15/24: * Continue current dose of eliquis. * No appreciated abnormal bleeding. (3) COPD (chronic obstructive pulmonary disease): Qualifiers: COPD type: unspecified COPD Qualified Code(s): J44.9 - Chronic obstructive pulmonary disease, unspecified Code(s): J44.9 - Chronic obstructive pulmonary disease, unspecified Status: Chronic Assessment and Plan: - Stable. - Bronchodilators PRN. 09/15/24: * No change in condition. (4) History of TIA (transient ischemic attack): Code(s): Z86.73 - Personal history of transient ischemic attack (TIA), and cerebral infarction without residual deficits Status: Acute Assessment and Plan: - Continue Apixaban, aspirin and statin. 09/15/24: * continue all medications as noted. (5) Atrial fibrillation: Qualifiers: Atrial fibrillation type: unspecified chronic Qualified Code(s): I48.20 - Chronic atrial fibrillation, unspecified Code(s): I48.91 - Unspecified atrial fibrillation Status: Chronic Assessment and Plan: - Apixaban resumed. - Patient not on any rate control medications. 09/15/24: * Heart rate is regular and pt does not appear to be in a-fib at this time. * No rate control is needed. * Continue Eliquis. (6) Portal vein thrombosis: Code(s): I81 - Portal vein thrombosis Status: Chronic Assessment and Plan: - Continue Apixaban. (7) Migraine: Qualifiers: Migraine type: migraine (< 15 days per month) without aura Status migrainosus presence: with status migrainosus Intractability: intractable Qualified Code(s): G43.011 - Migraine without aura, intractable, with status migrainosus Code(s): G43.909 - Migraine, unspecified, not intractable, without status migrainosus Status: Chronic Assessment and Plan: - [place] and sumatriptan PRN. 09/15/24: * Hold Sumatriptan at this time as pt has been placed on Linezolid. (8) Crohn's disease: Qualifiers: Digestive disease complication type: without complication Gastrointestinal tract location: unspecified location Qualified Code(s): K50.90 - Crohn's disease, unspecified, without complications Code(s): K50.90 - Crohn's disease, unspecified, without complications Status: Chronic Assessment and Plan: - Holding Humira for now. - Patient on low dose prednisone 2.5 mg daily. 09/15/24: * Continue low dose prednisone. * Agree with holding Humira. * Not currently in exacerbation. Plan Pt's overall condition does not appear decompensated and she appears generally well. She does not require transfer to a higher level of care at this time and attempted to educate that a lateral transfer would also be inappropriate at this time but rather outpatient follow up is in order as she continues to remain stable. Pt then looked at her nurse and asked her nurse if I had to come back in her room. Time Spent With Patient Time with patient: 15 - 25 minutes Subjective Date/time seen: 09/15/24 1100 Interval history: An attempt to examine this patient at the bedside was made with Raquel GREWAL accompanying me. Pt is clinically doing very well with negative blood cultures to date and although she has a hx of MRSA, her MRSA culture here has been negative. She has had left otorrhea and a culture was ordered of that today and to add additional pseudomonas coverage, pt was placed on Cipro HC Drops after o btaining the culture of the drainage. Her VSS, she is not meeting SIRS/Sepsis criteria and she is not appearing to be toxic or bacteremic. Her abx are therefore de-escalated at this time to Linezolid and oral Diflucan and Vancomycin and Fluconazole is discontinued in keeping with good abx stewardship. This was all explained to the patient and was advised that this is actually good news and data and reassuring that she is not decompensating. She was further educated that antibiotics are chosen specifically based off of cultures and sensitivities and that misusing antibiotics can have further side effects or health disparities, and that we strive to not always use the strongest antibiotic there is. With RN in the room as witness, Pt is angry that no attempts have been made to transfer her to [facility] as her previous ENT, who is now out of state and no longer on staff here has told her that she needed to come here immediately for IV abx and PICC line placement for longer dosing of Vancomycin for her hx of MRSA. 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 She has only allowed me to listen to her lungs and heart but was not cooperative for a full exam, at first telling me that I could get all of my information from the nurse and I didn't need to do an assessment. Review of Systems Review of Systems: ROS unobtainable: Yes other (Due to patient's behavior) Exam Narrative: GENERAL: Obese female pt lysing supine in bed at this time in no acute distress. HEAD: Normocephalic, atraumatic to visual exam. NECK: Grossly Supple AROM. CHEST: Clear to auscultation. No respiratory distress. HEART: Regular rate and rhythm. No murmurs heard. Normal peripheral pulses. PSYCH: Uncooperative, inappropriate, aggressive affect. Objective Data Vital Signs Vital Signs: Vital Signs - 24 hr 09/14/24 15:47 09/14/24 20:00 09/14/24 21:01 Temperature 98.3 F 97.6 F Pulse Rate 68 60 Respiratory Rate 18 16 Blood Pressure 107/65 106/70 Pulse Oximetry 100 100 Oxygen Delivery Room Air 09/15/24 06:01 Temperature 97.6 F Pulse Rate 67 Respiratory Rate 18 Blood Pressure 116/65 Pulse Oximetry 100 Oxygen Delivery Intake/Output Intake/Output: Intake & Output 10/25/24 10/26/24 10/27/24 10/28/24 23:59 23:59 23:59 23:59 Intake Total 660 2450 1030 Balance 660 2450 1030 Meds/Results Medications: Active Medications Generic Name Dose Route Start Last Admin Trade Name Freq PRN Reason Stop Dose Admin Acetaminophen 650 mg 09/13/24 03:48 Acetaminophen 325 Mg Tablet PO Q4H PRN Mild Pain (1-3) or Fever Alprazolam 0.5 mg 09/13/24 09:00 09/15/24 08:45 Alprazolam (*Crx) 0.5 Mg Tablet PO 0.5 mg BID GREGG Administration Apixaban 5 mg 09/13/24 10:15 09/15/24 08:45 Apixaban 5 Mg Tablet PO 5 mg BID GREGG Administration Ascorbic Acid 1,000 mg 09/13/24 10:25 09/15/24 08:44 Ascorbic Acid 500 Mg Tablet PO 1,000 mg DAILY GREGG Administration Aspirin 81 mg 09/13/24 10:25 09/15/24 08:45 Aspirin 81 Mg Enteric Tablet PO 81 mg DAILY GREGG Administration Ciprofloxacin/Hydrocortisone 3 drop 09/15/24 09:00 09/15/24 09:57 Ciprofloxacin Hc Otic 10 Ml LEFT EAR 3 drop Q12HR GREGG Administration Ergocalciferol 50,000 units 09/14/24 09:00 09/14/24 10:42 Ergocalciferol 50,000 Units Capsule PO 50,000 units Nava@0900 GREGG Administration Fluconazole 400 mg 09/15/24 09:00 09/15/24 09:56 Fluconazole 100 Mg Tablet PO 400 mg QAM GREGG Administration Hyoscyamine 0.125 mg 09/13/24 10:25 09/15/24 12:21 Hyoscyamine Sulfate 0.125 Mg Tablet PO 0.125 mg QID GREGG Administration Linezolid 600 mg 09/15/24 09:00 09/15/24 09:57 Linezolid 600 Mg Tablet PO 600 mg Q12HR GREGG Administration Mercaptopurine 50 mg 09/14/24 21:00 09/14/24 20:25 Mercaptopurine 50 Mg Tablet PO 50 mg QHS GREGG Administration Morphine Sulfate 2 mg 09/13/24 03:48 Morphine Sulfate (*Crx) 2 Mg/Ml Inj IV PUSH Q2H PRN Pain Rated 7-10 Non-Formulary Medication 3 mg 09/14/24 21:00 Eszopiclone PO 10/14/24 20:59 QHS GREGG Oxycodone/Acetaminophen 1 tablet 09/13/24 20:33 09/15/24 08:44 Oxycodone/Acetaminophen (*Crx) 5-325 Mg Tablet PO 1 tablet Q4H PRN Administration Pain Rated 7-10 Pantoprazole Sodium 40 mg 09/13/24 10:25 09/15/24 08:45 Pantoprazole 40 Mg Tablet PO 40 mg QAM GREGG Administration Paroxetine HCl 40 mg 09/13/24 21:00 09/14/24 20:24 Paroxetine 20 Mg Tablet PO 40 mg HS GREGG Administration Prednisone 2.5 mg 09/13/24 08:00 09/15/24 08:45 Prednisone 2.5 Mg Tablet PO 2.5 mg DAILY@0800 GREGG Administration Ropinirole HCl 1 mg 09/13/24 10:25 09/15/24 08:45 Ropinirole Hcl 1 Mg Tablet PO 1 mg DAILY GREGG Administration Rosuvastatin Calcium 40 mg 09/14/24 21:00 09/14/24 20:25 Rosuvastatin 20 Mg Tablet PO 40 mg HS GREGG Administration Saccharomyces Boulardii 250 mg 09/15/24 13:00 09/15/24 12:21 Saccharomyces Boulardii 250 Mg Capsule PO 250 mg TID GREGG Administration Sucralfate 1 gm 09/13/24 10:10 Sucralfate 1 Gm Tablet PO TID PRN Acid Reflux Tizanidine HCl 2 mg 09/13/24 10:30 09/15/24 12:21 Tizanidine Hcl 2 Mg Tablet PO 10/13/24 10:29 2 mg TID GREGG Administration Radiology Results: ITS Impressions Sinuses CT 09/13/24 07:27 IMPRESSION: 1. Chronic sinusitis. 2. Rightward deviation of the nasal septum. 3. Bilateral otomastoid effusions. 4. Dental disease. Labs Labs: Laboratory Results - last 24 hr 09/14/24 09/15/24 09/15/24 16:01 06:21 06:21 WBC 5.1 RBC 3.84 L Hgb 12.0 Hct 36.9 L MCV 96.1 MCH 31.3 MCHC 32.5 RDW 14.5 Plt Count 216 MPV 10.8 H Immature Gran % (Auto) 0.2 Neut % (Auto) 33.4 L Lymph % (Auto) 52.6 H Levy % (Auto) 8.3 Eos % (Auto) 4.7 H Baso % (Auto) 0.8 Lymph # (Auto) 2.66 Levy # (Auto) 0.4 Eos # (Auto) 0.2 Baso # (Auto) 0.0 Abs Immat Gran (auto) 0.01 Absolute Neuts (auto) 1.7 Absolute Nucleated RBC 0.000 Nucleated RBC % 0.0 Sodium 142 Potassium 4.2 Chloride 106 Carbon Dioxide 29 Anion Gap 7 BUN 10 Creatinine 1.00 1.00 Estim Creat Clear Calc 62 Estimated GFR Glucose Calcium Total Bilirubin AST ALT Alkaline Phosphatase Total Protein Albumin Vancomycin Trough 12.9 09/15/24 09/15/24 06:21 06:21 WBC RBC Hgb Hct MCV MCH MCHC RDW Plt Count MPV Immature Gran % (Auto) Neut % (Auto) Lymph % (Auto) Levy % (Auto) Eos % (Auto) Baso % (Auto) Lymph # (Auto) Levy # (Auto) Eos # (Auto) Baso # (Auto) Abs Immat Gran (auto) Absolute Neuts (auto) Absolute Nucleated RBC Nucleated RBC % Sodium Potassium Chloride Carbon Dioxide Anion Gap BUN Creatinine Estim Creat Clear Calc 62 Estimated GFR 58 L 58 L Glucose 80 Calcium 9.1 Total Bilirubin 0.3 AST 31 ALT 46 H Alkaline Phosphatase 49 Total Protein 7.0 Albumin 3.7 Vancomycin Trough Quality VTE Prophylaxis VTE prophylaxis: pharmacologic ordered
[2024-09-15 14:00] VITALS: BP 68/67; PULSE 69; RESP 18; TEMP 36.5; O2SAT 100
[2024-09-15 16:18] VITALS: BP 102/62; PULSE 67
[2024-09-15] MEDS: ALBUTEROL SULFATE (*SP) AEROSOL 1 PUFF 2 PUFF INHALATION (17:36)
[2024-09-15] MEDS: ROSUVASTATIN 20 MG TABLET 40 MG PO (21:29)
[2024-09-15] MEDS: PARoxetine 20 MG TABLET 40 MG PO (21:30)
[2024-09-15 22:00] VITALS: BP 108/63; PULSE 71; RESP 16; TEMP 36.4; O2SAT 99
[2024-09-16 05:48] VITALS: BP 123/74; PULSE 71; RESP 14; TEMP 36.5; O2SAT 100
[2024-09-16 06:19] LABS: Basophils Percent Auto 0.7 % (0.2-1.2); Eosinophils Absolute Auto 0.3 K/mm3 (0-0.3); Eosinophils Percent Auto 5.1 % (0-4.4); Hematocrit 37.7 % (37.0-47.0); Hemoglobin 12.3 g/dL (12.0-15.0); Immature Granulocyte Absolute 0.01 K/mm3 (0.00-0.031); Immature Granulocyte Percent A 0.2 % (0-0.5); Lymphocytes Absolute Auto 2.63 K/mm3 (0.9-3.2); Lymphocytes Percent Auto 49.3 % (18.3-44.2); Mean Corpuscular HGB Conc 32.6 g/dl (32-36); Mean Corpuscular Hemoglobin 31.2 pg (26-34); Mean Corpuscular Volume 95.7 fl (80-100); Mean Platelet Volume 10.4 fl (7.4-10.4); Monocytes Absolute Auto 0.5 K/mm3 (0.1-0.6); Monocytes Percent Auto 8.6 % (2.6-8.5); Neutrophils Absolute Auto 1.9 K/mm3 (1.3-6.7); Neutrophils Percent Auto 36.1 % (45.5-73.1); Platelet Count Result 214 k/mm3 (150-375); Red Blood Count 3.94 M/mm3 (4.2-5.4); Red Cell Distribution Width 14.5 % (11.5-14.5); White Blood Count 5.3 K/mm3 (4.5-10.0)
[2024-09-16 06:32] LABS: Alanine Aminotransferase 42 U/L (6-35); Alkaline Phosphatase 54 U/L (38-126); Anion Gap 7 mmol/L (4-12); Aspartate Amino Transferase 32 U/L (14-36); Bilirubin,Total 0.4 mg/dL (0.2-1.3); Blood Urea Nitrogen 11 mg/dL (7-17); Calcium 9.4 mg/dL (8.4-10.2); Carbon Dioxide 29 mmol/L (22-30); Chloride 104 mmol/L (98-107); Estimated CRCL calculation 56 ml/min; Estimated Glomerular Filt Rate 52; Glucose 92 mg/dL (65-110); Magnesium 2.2 mg/dL (1.6-2.3); Potassium 4.6 mmol/L (3.4-5.0); Sodium 140 mmol/L (137-145)
--- NOTE | 2024-09-16 08:34 | P.PNIM_ITS ---
Progress Note: A&P Assessment and Plan (1) Sinusitis: Code(s): J32.9 - Chronic sinusitis, unspecified Status: Acute Assessment and Plan: - Acute on Chronic. - Continue Vancomycin and Fluconazole for now. - May need long-term IV abx per pt's previous ENT. - Monitor labs closely with IV abx. -Consider referring patient to a higher level of care per ENT recommendations. - Hold Humira for now with possible active infection. 09/15/24: * Change Vanc and Fluconazole to oral Linezolid and Diflucan. * Pt's blood cultures are negative thus far. * She does not meet SIRS/Sepsis criteria * Culture of left ear otorrhea obtained. * Ciprodex HC ordered to left ear Q12 hrs. * Hold Humira. * No evidence for needing higher level of care at this time. Pt will need follow up with ENT as outpatient. * Trend labs and consider repeat imaging of head if any declination in overall condition. 09/16/24: * Continue Linezolid and Diflucan * Left ear culture pending * Blood cultures showing no growth to date on preliminary read. * Continue to hold Humira (2) Factor V Leiden: Code(s): D68.51 - Activated protein C resistance Status: Chronic Assessment and Plan: - Continue Apixaban. 09/15/24: * Continue current dose of eliquis. * No appreciated abnormal bleeding. 09/16/24: * No change to current treatment plan (3) COPD (chronic obstructive pulmonary disease): Qualifiers: COPD type: unspecified COPD Qualified Code(s): J44.9 - Chronic obstructive pulmonary disease, unspecified Code(s): J44.9 - Chronic obstructive pulmonary disease, unspecified Status: Chronic Assessment and Plan: - Stable. - Bronchodilators PRN. 09/15/24: * No change in condition. 09/16/24: * No change to current treatement plan (4) History of TIA (transient ischemic attack): Code(s): Z86.73 - Personal history of transient ischemic attack (TIA), and cerebral infarction without residual deficits Status: Acute Assessment and Plan: - Continue Apixaban, aspirin and statin. 09/15/24: * continue all medications as noted. 09/16/24: * No change to current treatment plan (5) Atrial fibrillation: Qualifiers: Atrial fibrillation type: unspecified chronic Qualified Code(s): I48.20 - Chronic atrial fibrillation, unspecified Code(s): I48.91 - Unspecified atrial fibrillation Status: Chronic Assessment and Plan: - Apixaban resumed. - Patient not on any rate control medications. 09/15/24: * Heart rate is regular and pt does not appear to be in a-fib at this time. * No rate control is needed. * Continue Eliquis. 09/16/24: * No change to current treatment plan (6) Portal vein thrombosis: Code(s): I81 - Portal vein thrombosis Status: Chronic Assessment and Plan: 09/16/24: * Continue Apixaban. (7) Migraine: Qualifiers: Migraine type: migraine (< 15 days per month) without aura Status migrainosus presence: with status migrainosus Intractability: intractable Qualified Code(s): G43.011 - Migraine without aura, intractable, with status migrainosus Code(s): G43.909 - Migraine, unspecified, not intractable, without status migrainosus Status: Chronic Assessment and Plan: - [place] and sumatriptan PRN. 09/15/24: * Hold Sumatriptan at this time as pt has been placed on Linezolid. 09/16/24: * No change to current treatment plan (8) Crohn's disease: Qualifiers: Digestive disease complication type: without complication Gastrointestinal tract location: unspecified location Qualified Code(s): K50.90 - Crohn's disease, unspecified, without complications Code(s): K50.90 - Crohn's disease, unspecified, without complications Status: Chronic Assessment and Plan: - Holding Humira for now. - Patient on low dose prednisone 2.5 mg daily. 09/15/24: * Continue low dose prednisone. * Agree with holding Humira. * Not currently in exacerbation. 09/16/24: * No change to current treatment plan Time Spent With Patient Time with patient: 25 - 35 minutes Subjective Date/time seen: 09/16/24 08:34 Review of Systems Review of Systems: All systems reviewed & are unremarkable except as noted in HPI and below ROS unobtainable: Yes other (Due to patient's behavior) Exam Narrative: General: In no acute distress, well nourished Head: atraumatic, no encephalopathy Eyes: EOMI, PERRLA, sclera clear ENT: moist mucous membranes, nasal passages clear Neck: supple, no JVD, no adenopathy, trachea midline Cardiac: Normal S1 and S2. No murmur, gallops or friction rubs, peripheral pulses intact. Respiratory: Lungs clear to auscultation, no adventitious lung sounds Gastrointestinal: soft, non-distended, non-tender, normoactive bowel sounds. : voiding without difficulty. Extremities: moves all extremities well, no edema, good ROM, strength 5/5 Skin: clean, dry, intact. No wounds or lesions. Neuro: Alert and oriented x4, cranial nerves intact, no neuro deficits. Psych: normal mood, normal affect, interactive Objective Data Vital Signs Vital Signs: Vital Signs - 24 hr 09/15/24 14:00 09/15/24 16:18 09/15/24 22:00 Temperature 97.7 F 97.6 F Pulse Rate 69 67 71 Respiratory Rate 18 16 Blood Pressure 68/67 L 102/62 108/63 Pulse Oximetry 100 99 Oxygen Delivery 09/15/24 20:00 09/16/24 05:48 Temperature 97.7 F Pulse Rate 71 Respiratory Rate 14 Blood Pressure 123/74 Pulse Oximetry 100 Oxygen Delivery Room Air Intake/Output Intake/Output: Intake & Output 09/13/24 09/14/24 09/15/24 09/16/24 23:59 23:59 23:59 23:59 Intake Total 660 2450 1430 550 Balance 660 2450 1430 550 Meds/Results Medications: Active Medications Generic Name Dose Route Start Last Admin Trade Name Freq PRN Reason Stop Dose Admin Acetaminophen 650 mg 09/13/24 03:48 Acetaminophen 325 Mg Tablet PO Q4H PRN Mild Pain (1-3) or Fever Albuterol 2.5 mg 09/15/24 17:03 Albuterol Sulfate Neb 2.5 Mg/3 Ml Inh INHALATION Q4HRT PRN Shortness Of Breath Albuterol 2 puff 09/15/24 17:04 09/15/24 17:36 Albuterol Sulfate (*Sp) Aerosol 1 Puff INHALATION 2 puff Q4HRT PRN Administration Shortness Of Breath Alprazolam 0.5 mg 09/13/24 09:00 09/15/24 17:28 Alprazolam (*Crx) 0.5 Mg Tablet PO 0.5 mg BID GREGG Administration Apixaban 5 mg 09/13/24 10:15 09/15/24 17:28 Apixaban 5 Mg Tablet PO 5 mg BID GREGG Administration Ascorbic Acid 1,000 mg 09/13/24 10:25 09/15/24 08:44 Ascorbic Acid 500 Mg Tablet PO 1,000 mg DAILY GREGG Administration Aspirin 81 mg 09/13/24 10:25 09/15/24 08:45 Aspirin 81 Mg Enteric Tablet PO 81 mg DAILY GREGG Administration Ciprofloxacin/Hydrocortisone 3 drop 09/15/24 09:00 09/15/24 21:29 Ciprofloxacin Hc Otic 10 Ml LEFT EAR 3 drop Q12HR GREGG Administration Ergocalciferol 50,000 units 09/14/24 09:00 09/14/24 10:42 Ergocalciferol 50,000 Units Capsule PO 50,000 units Nava@0900 GREGG Administration Fluconazole 400 mg 09/15/24 09:00 09/15/24 09:56 Fluconazole 100 Mg Tablet PO 400 mg QAM [facility] Administration Hyoscyamine 0.125 mg 09/13/24 10:25 09/15/24 21:29 Hyoscyamine Sulfate 0.125 Mg Tablet PO 0.125 mg QID [facility] Administration Linezolid 600 mg 09/15/24 09:00 09/15/24 21:29 Linezolid 600 Mg Tablet PO 600 mg Q12HR GREGG Administration Mercaptopurine 50 mg 09/14/24 21:00 09/15/24 21:36 Mercaptopurine 50 Mg Tablet PO Not Given QHS [facility] Morphine Sulfate 2 mg 09/13/24 03:48 Morphine Sulfate (*Crx) 2 Mg/Ml Inj IV PUSH Q2H PRN Pain Rated 7-10 Non-Formulary Medication 3 mg 09/14/24 21:00 Eszopiclone PO 10/14/24 20:59 QHS [facility] Oxycodone/Acetaminophen 1 tablet 09/13/24 20:33 09/15/24 21:28 Oxycodone/Acetaminophen (*Crx) 5-325 Mg Tablet PO 1 tablet Q4H PRN Administration Pain Rated 7-10 Pantoprazole Sodium 40 mg 09/13/24 10:25 09/15/24 08:45 Pantoprazole 40 Mg Tablet PO 40 mg QAM [facility] Administration Paroxetine HCl 40 mg 09/13/24 21:00 09/15/24 21:30 Paroxetine 20 Mg Tablet PO 40 mg HS GREGG Administration Prednisone 2.5 mg 09/13/24 08:00 09/15/24 08:45 Prednisone 2.5 Mg Tablet PO 2.5 mg DAILY@0800 GREGG Administration Ropinirole HCl 1 mg 09/13/24 10:25 09/15/24 08:45 Ropinirole Hcl 1 Mg Tablet PO 1 mg DAILY [facility] Administration Rosuvastatin Calcium 40 mg 09/14/24 21:00 09/15/24 21:29 Rosuvastatin 20 Mg Tablet PO 40 mg HS GREGG Administration Saccharomyces Boulardii 250 mg 09/15/24 13:00 09/15/24 17:28 Saccharomyces Boulardii 250 Mg Capsule PO 250 mg TID GREGG Administration Sucralfate 1 gm 09/13/24 10:10 Sucralfate 1 Gm Tablet PO TID PRN Acid Reflux Tizanidine HCl 2 mg 09/13/24 10:30 09/15/24 17:28 Tizanidine Hcl 2 Mg Tablet PO 10/13/24 10:29 2 mg TID GREGG Administration Radiology Results: ITS Impressions Sinuses CT 09/13/24 07:27 IMPRESSION: 1. Chronic sinusitis. 2. Rightward deviation of the nasal septum. 3. Bilateral otomastoid effusions. 4. Dental disease. Labs Labs: Laboratory Results - last 24 hr 09/15/24 09/16/24 06:21 05:40 WBC 5.1 5.3 RBC 3.84 L 3.94 L Hgb 12.0 12.3 Hct 36.9 L 37.7 MCV 96.1 95.7 MCH 31.3 31.2 MCHC 32.5 32.6 RDW 14.5 14.5 Plt Count 216 214 MPV 10.8 H 10.4 Immature Gran % (Auto) 0.2 0.2 Neut % (Auto) 33.4 L 36.1 L Lymph % (Auto) 52.6 H 49.3 H [place] % (Auto) 8.3 8.6 H Eos % (Auto) 4.7 H 5.1 H Baso % (Auto) 0.8 0.7 Lymph # (Auto) 2.66 2.63 [place] # (Auto) 0.4 0.5 Eos # (Auto) 0.2 0.3 Baso # (Auto) 0.0 0.0 Abs Immat Gran (auto) 0.01 0.01 Absolute Neuts (auto) 1.7 1.9 Absolute Nucleated RBC 0.000 0.000 Nucleated RBC % 0.0 0.0 Sodium 140 Potassium 4.6 Chloride 104 Carbon Dioxide 29 Anion Gap 7 BUN 11 Creatinine 1.10 H Estim Creat Clear Calc 56 Estimated GFR 52 L Glucose 92 Calcium 9.4 Magnesium 2.2 Total Bilirubin 0.4 AST 32 ALT 42 H Alkaline Phosphatase 54 Total Protein 7.0 Albumin 4.0 Quality VTE Prophylaxis VTE prophylaxis: pharmacologic ordered
[2024-09-16] MEDS: SACCHAROMYCES BOULARDII 250 MG CAPSULE PO (08:48)
[2024-09-16] MEDS: FLUCONAZOLE 100 MG TABLET 400 MG PO (08:48)
[2024-09-16] MEDS: ASCORBIC ACID 500 MG TABLET 1000 MG PO (08:49)
[2024-09-16] MEDS: HYOSCYAMINE SULFATE 0.125 MG TABLET PO (08:51)
[2024-09-16] MEDS: ALPRAZolam (*CRX) 0.5 MG TABLET PO (08:51)
[2024-09-16] MEDS: ASPIRIN 81 MG ENTERIC TABLET PO (08:52)
[2024-09-16] MEDS: CIPROFLOXACIN HC OTIC 10 ML 3 DROP LEFT EAR (08:52)
[2024-09-16] MEDS: predniSONE 2.5 MG TABLET PO (08:52)
[2024-09-16] MEDS: PANTOPRAZOLE 40 MG TABLET PO (08:52)
[2024-09-16] MEDS: TIZANIDINE HCL 2 MG TABLET PO (08:52)
[2024-09-16] MEDS: APIXABAN 5 MG TABLET PO (08:52)
--- NOTE | 2024-09-16 10:50 | PM.DS ---
DS: Admitting Diagnosis Discharge Date 09/16/24 Admitting Diagnosis Sinusitis Factor V Leiden COPD History of TIA Atrial Fibrillation Portal vein thrombosis Migraine Crohn's disease DS: Summary Hospital Course Reason for hospitalization: Sinusitis Factor V Leiden COPD History of TIA Atrial Fibrillation Portal vein thrombosis Migraine Crohn's disease Hospital Course: This is a 51-year-old female who presents than a to the hospital on 09/13/2024 with complaints of sinusitis and an ear infection. Patient has history of MRSA sinusitis and ear infections that have been seen by Dr. Peralta with ENT. Patient reports that she has had 18 known infections with her sinuses in the last 2 years. She has been on multiple antibiotics over that duration. Workup in the hospital included a sinus CT which showed chronic sinusitis, rightward deviation of the nasal septum, bilateral auto mastoid effusion, dental disease. Initial labs showed a normal white blood count of 6.1 AST 59, otherwise unremarkable. MRSA was negative. Blood cultures are showing no growth to date on preliminary read that was drawn on the . Left ear culture was obtained and is pending. Patient was initially on vancomycin and fluconazole and then switched to oral linezolid and Diflucan yesterday. She does have history of autoimmune disorder and normally takes Humira which was held. Cipro ear drops were also ordered. Patient is stable for discharge at this time. I discussed with her the need to follow-up with her ENT in 1 week to discuss sinus sampling on an outpatient basis and also considering she has had these chronic infections for 2 years now would be in her best interest to get in with an infectious disease doctor Dr. Paulino who can further assist in finding the root cause to her chronic sinusitis. She is agreeable to this plan. Prescriptions for Cipro ear drops, linezolid, and Diflucan were sent to her pharmacy As well as information on how to contact Infectious Disease doctor. Final diagnosis: Chronic sinusitis Status at Discharge Cognitive/behavioral status at discharge: Alert and oriented x3 Functional status at discharge: independent ambulation Overall status at discharge: patient is progressing back to baseline Time Spent with Patient Time attestation: Total time spent providing and/or coordinating discharge services: Time spent: Greater than 30 minutes Exam Narrative: General: In no acute distress, well nourished Head: atraumatic, no encephalopathy Eyes: EOMI, PERRLA, sclera clear ENT: moist mucous membranes, nasal passages clear Neck: supple, no JVD, no adenopathy, trachea midline Cardiac: Normal S1 and S2. No murmur, gallops or friction rubs, peripheral pulses intact. Respiratory: Lungs clear to auscultation, no adventitious lung sounds, currently on room air Gastrointestinal: soft, non-distended, non-tender, normoactive bowel sounds. : voiding without difficulty. Extremities: moves all extremities well, no edema, good ROM, strength 5/5 Skin: clean, dry, intact. No wounds or lesions. Neuro: Alert and oriented x4, cranial nerves intact, no neuro deficits. Psych: normal mood, normal affect, interactive DS: Data Data Completed and Pending Completed studies during hospitalization: Sinuses CT Pending studies at discharge: Blood cultures and wound culture Labs on day of discharge: Labs from last 24 hours 09/16/24 05:40 WBC 5.3 RBC 3.94 L Hgb 12.3 Hct 37.7 MCV 95.7 MCH 31.2 MCHC 32.6 RDW 14.5 Plt Count 214 MPV 10.4 Immature Gran % (Auto) 0.2 Neut % (Auto) 36.1 L Lymph % (Auto) 49.3 H [place] % (Auto) 8.6 H Eos % (Auto) 5.1 H Baso % (Auto) 0.7 Lymph # (Auto) 2.63 [place] # (Auto) 0.5 Eos # (Auto) 0.3 Baso # (Auto) 0.0 Abs Immat Gran (auto) 0.01 Absolute Neuts (auto) 1.9 Absolute Nucleated RBC 0.000 Nucleated RBC % 0.0 Sodium 140 Potassium 4.6 Chloride 104 Carbon Dioxide 29 Anion Gap 7 BUN 11 Creatinine 1.10 H Estim Creat Clear Calc 56 Estimated GFR 52 L Glucose 92 Calcium 9.4 Magnesium 2.2 Total Bilirubin 0.4 AST 32 ALT 42 H Alkaline Phosphatase 54 Total Protein 7.0 Albumin 4.0 Preliminary micro results at discharge 09/12/24 23:52 Blood Culture - Preliminary Blood 09/12/24 23:52 Blood Culture - Preliminary Blood Procedures/Treatments: None Discharge Plan Discharge Attending physician on discharge: Chris Laguerre Consulting providers: Kimberly Cha Discharging Clinician: Kimberly Cha Anticipated Discharge Date/Time: 09/16/24 10:32 Patient Disposition: Home, Self-Care Activity: as tolerated Diet: as tolerated Discharge Instructions: Finish all antibiotics as directed even if you are feeling better. We will call if your culture are positive, otherwise continue with Linezolid and fluconazole. Follow up with Dr. Jo ENT as soon as possible, they may want to do sinus sampling for further investigation into your chronic sinusitis. Dr[place]. Considering you have had numerous infections it would not hurt to seek his opinion as he is knowledgeable about chronic infections. Contact his office to schedule appointment. Info listed below: Dr. Victor M Paulino [phone] [facility] [facility] [address] [place] [address] [place], [place] [id number] Update primary care doctor on your recent hospitalization, antibiotics, and plan of care going forward. Continue to hold Humira for now. Follow up with Dr. Jo as he will let you know when to restart this medication. I put you on probiotic considering the long duration of antibiotics to help prevent against getting C. Diff infection. Patient Instructions: Antibiotic Form, Fluconazole (By mouth), Linezolid (By mouth), Apixaban (By mouth), Sinusitis (GEN), Safe Use of Anticoagulants (GEN) Patient Language: Divehi Stand Alone Forms: General Discharge Information Follow-up/Referrals: Kassandra Hooks APRN [Primary Care Provider] - 1 Week Redd Jo M.D. [Physician] - 1 Week Discharge Medications: New Cipro HC 0.2-1 % Drops,Suspension 3 drp LEFT EAR Q12HR Qty: 10 0RF Saccharomyces boulardii [Florastor] 250 mg Capsule 250 mg PO TID Qty: 30 0RF linezolid 600 mg Tablet 600 mg PO Q12HR Qty: 18 0RF fluconazole 200 mg tablet 200 mg PO DAILY Qty: 16 0RF Continued rosuvastatin 40 mg tablet 40 mg PO DAILY eszopiclone 3 mg tablet 3 mg PO QHS Qty: 30 2RF hyoscyamine sulfate 0.125 mg tablet,disintegrating 0.125 mg PO QID tizanidine 2 mg capsule 2 mg PO TID albuterol sulfate 90 mcg/actuation HFA aerosol inhaler 2 inh inhalation Q4H PRN (Reason: shortness of breath or wheezing) Qty: 6.7 3RF sucralfate 1 gram tablet 1 g PO TID PRN (Reason: Acid Reflux) ascorbic acid (vitamin C) [Vitamin C] 1,000 mg Tablet 1 g PO DAILY aspirin 81 mg Tablet,Delayed Release (Dr/Ec) 81 mg PO DAILY myynhtan-cfak-ccpdc-oreg-capry 100 mg-150 mg- 50 mg-150 mg Capsule 1 cap PO DAILY mercaptopurine 50 mg tablet 50 mg PO DAILY sumatriptan succinate [Imitrex] 50 mg Tablet 50 mg PO ONCE PRN (Reason: MIGRAINES) hydrocortisone acetate 25 mg suppository 25 mg RECTAL DAILY PRN (Reason: CROHN'S EXAC) prednisone 20 mg tablet 2.5 mg PO DAILY paroxetine HCl [Paxil] 40 mg tablet 40 mg PO HS pantoprazole 40 mg tablet,delayed release (DR/EC) 40 mg PO QAM Qty: 90 0RF ondansetron 4 mg tablet,disintegrating See Rx Instructions .ROUTE .COMPLEX Qty: 30 0RF Dose Instruction: DISSOLVE ONE TABLET ON TONGUE EVERY 8 HOURS NEEDED FOR NAUSEA OR VOMITING Rx Instructions: DISSOLVE ONE TABLET ON TONGUE EVERY 8 HOURS NEEDED FOR NAUSEA OR VOMITING ropinirole 1 mg tablet 1 mg PO DAILY Qty: 30 3RF cholecalciferol (vitamin D3) 1,250 mcg (50,000 unit) capsule See Rx Instructions .ROUTE .COMPLEX Qty: 12 5RF Dose Instruction: TAKE ONE CAPSULE BY MOUTH WEEKLY ON SUNDAY Rx Instructions: TAKE ONE CAPSULE BY MOUTH WEEKLY ON SUNDAY albuterol sulfate 2.5 mg /3 mL (0.083 %) solution for nebulization 2.5 mg inhalation Q4-6H PRN (Reason: shortness of breath or wheezing) Qty: 90 0RF alprazolam 0.5 mg tablet 0.5 mg PO BID Qty: 60 0RF Eliquis 5 mg tablet 5 mg PO BID Qty: 60 3RF oxycodone-acetaminophen 10-325 mg tablet 1 tablet PO Q8H PRN (Reason: pain) Qty: 90 0RF Held Humira Pen 40 mg/0.8 mL pen injector kit See Rx Instructions subcut .Every other Week Qty: 2 10RF Hold Instructions: Resume on 10/03/24. Continue to hold this medications especially while on antibiotics. Follow up with ENT before restarting this medication. This medication suppresses the immune system and can lead to chronic infections. Rx Instructions: inject one - 40 mg/0.8 mL pen every other week subcut . Date of admission: 09/14/24 13:54 Primary Care Provider: Kassandra Hooks Admitting Provider: Nadeen Moncada Attending physician on admission: Asia Urena Condition: Improved
== END 2024-09-16 12:20 | disposition home or self-care (01) | DRG 152 ==
LOC: ANHED 09-13 03:48 → ANH2MED 09-13 04:47
PROVIDERS: Nurse Practitioner Adult Health; Admitting Provider General Practice; Emergency Provider Emergency Medicine; PCP Nurse Practitioner Family; Visit Provider Nurse Practitioner Acute Care
DX: J01.90 Acute sinusitis, unspecified (principal); I81 Portal vein thrombosis; D68.51 Activated protein C resistance; I48.20 Chronic atrial fibrillation, unspecified; K50.90 Crohn's disease, unspecified, without complications; K76.6 Portal hypertension; E11.9 Type 2 diabetes mellitus without complications; D50.9 Iron deficiency anemia, unspecified; M47.816 Spondylosis without myelopathy or radiculopathy, lumbar region; G25.81 Restless legs syndrome; G43.909 Migraine, unspecified, not intractable, without status migrainosus; Q07.00 Arnold-Chiari syndrome without spina bifida or hydrocephalus; Z87.891 Personal history of nicotine dependence; Z86.73 Personal history of transient ischemic attack (TIA), and cerebral infarction without residual deficits; Z79.01 Long term (current) use of anticoagulants; Z79.82 Long term (current) use of aspirin; Z89.421 Acquired absence of other right toe(s)
CPT/HCPCS: 36415; 70487; 80053; 80202; 82565; 83605; 83735; 85025; 85027; 87040; 87070; 87205; 87641; 96365; 96366; 96367; 96375; 99285; A9270; G0378; J1450; J2270; J2765; J3370; Q9967

== ENCOUNTER 2024-12-30 18:21 | Emergency (ER) | payer BC, SELFPAY ==
[2024-12-30] VITALS (9 sets, daily range): BP systolic 75–121; BP diastolic 63–97; PULSE 85; RESP 18; TEMP 36.9; O2SAT 94–100
--- NOTE | ~2024-12-30 | CT_ITS ---
CLINICAL INDICATION: Right lower quadrant pain COMPARISON: 04/20/2020. TECHNIQUE: Multiple contiguous axial images of the abdomen and pelvis were performed following the ad ministration of with 100 mL Omnipaque-350 intravenous contrast The dose-length product (DLP) was 682.10 mGy-cm. Automated exposure control and iterative reconstruction technique were employed. FINDINGS/OBSERVATIONS: Visualized lower thorax: The bilateral lung bases are clear. The heart is of normal size, without pericardial effusion. Small hiatal hernia is present. Liver: The liver enhances homogeneously and is not enlarged measuring 16 cm in longitudinal dimension. Gallbladder and biliary system: The gallbladder is only minimally distended, and otherwise unremarkable. Pancreas: The pancreas enhances homogeneously without ductal dilatation. Spleen: The spleen enhances homogeneously and is not enlarged measuring 8 cm in longitudinal dimension. 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 Otherwise, the bilateral kidneys enhance symmetrically without hydronephrosis or renal calculi. Adrenal glands: Unremarkable. Gastrointestinal tract: Findings suggesting prior ileocecectomy. Appendix: Surgically absent. Vasculature: Unremarkable. Lymph nodes: No pathologically enlarged or morphologically suspicious lymph nodes within the retroperitoneum or at the root of the mesentery. Pelvic structures: The bladder is minimally distended and otherwise unremarkable. The uterus is heterogeneous and nodular suggesting fibroid disease. Body wall and musculoskeletal: Degenerative disease at the level of L5/S1 with osteophyte formation, disc space narrowing, and vacuu m phenomena. Grade 1 retrolisthesis of L5 over S1 is detected. IMPRESSION: No acute intra-abdominal findings, as detailed above. Reviewed, dictated and finalized at location A. HOLOGICAL OPERATIONS SPECIALIST
--- NOTE | 2024-12-30 18:22 | ED.GENADULT ---
HPI - General Adult General Chief complaint: Abdominal Pain Stated complaint: pelvic pain Time Seen by Provider: 12/30/24 18:22 Source: patient and family Mode of arrival: ambulatory Limitations: no limitations History of Present Illness HPI narrative: 54 years old white female came to the ED by private car from home complaining of lower abdominal pain started early morningnt today associated with nausea, vomiting . She denies any fever or chills. Patient reports the pain is aching, no radiation. She denies any diarrhea. patient was seen by wood boatbuilder apprentice yesterday and usually get lower abdominal pain after abdominal exam by that wood boatbuilder apprentice. Patient reports not taking any of her medication today because of the nausea and vomiting. 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, Related Data Home Medications ?Medication ?Instructions ?Recorded ?Confirmed ?Last Taken ?Type sucralfate 1 gram tablet 1 g PO TID PRN Acid Reflux 08/02/21 10/14/24 04/14/24 History ascorbic acid (vitamin C) 1,000 mg 1 g PO DAILY 05/12/22 10/14/24 09/12/24 History tablet (Vitamin C) aspirin 81 mg tablet,delayed 81 mg PO DAILY 05/12/22 10/14/24 09/12/24 History release turmeric 100 mg-benjy 150 1 cap PO DAILY 05/12/22 10/14/24 09/12/24 History mg-olive 50 mg-oreg 150 mg-capryl capsule hydrocortisone acetate 25 mg 25 mg RECTAL DAILY PRN CROHN'S EXAC 07/19/23 10/14/24 04/14/24 History rectal suppository mercaptopurine 50 mg tablet 50 mg PO DAILY 07/19/23 10/14/24 09/12/24 History sumatriptan succinate 50 mg tablet 50 mg PO ONCE PRN MIGRAINES 07/19/23 10/14/24 04/14/24 History (Imitrex) tizanidine 2 mg capsule 2 mg PO TID 07/25/23 10/14/24 09/12/24 History rosuvastatin 40 mg tablet 40 mg PO DAILY 10/18/23 10/14/24 09/12/24 History hyoscyamine sulfate 0.125 mg 0.125 mg PO QID 07/09/24 10/14/24 09/12/24 History disintegrating tablet prednisone 20 mg tablet 2.5 mg PO DAILY 09/13/24 10/14/24 09/12/24 History Allergies Allergy/AdvReac Type Severity Reaction Status Date / Time metronidazole (From Flagyl) Allergy Severe GI bleeding Verified 12/30/24 18:30 Sulfa (Sulfonamide Allergy Severe GI Bleeding Verified 12/30/24 18:30 Antibiotics) sulfamethoxazole (From Allergy Unknown Verified 12/30/24 18:30 Bactrim) trimethoprim (From Bactrim) Allergy Unknown Verified 12/30/24 18:30 hydrocodone (From Vicodin) AdvReac Severe Vomiting Verified 12/30/24 18:30 adhesive tape AdvReac Blister Verified 12/30/24 18:30 Review of Systems Review of Systems: All systems reviewed & are unremarkable except as noted in HPI and below PMFSH Past Medical History Medical History Lumbar spondylosis Fatigue Iron deficiency anemia Diabetes Factor V Leiden Osteomyelitis History of TIA (transient ischemic attack) Restless leg syndrome Insomnia Portal hypertension Atrial fibrillation 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 Smoking packs per day: 2 Smoking cigarettes per day: 40.0 Years smoked: 20 Smoking pack-years: 40.00 Smoking status: Former smoker Tobacco type: cigarettes Smoking end date: 10/23/15 Additional smoking assessment comments: Quit 2015. 35pk yr history Alcohol intake: former Substance use: former Substance use type: marijuana Other substance usage details: Marijuana tea daily Last use: 09/11 Do You Feel Safe in your Home?: Yes Lack of Transportation: YES Lack of Food: Often True Current Housing: I Have Housing Concerned About Future Housing: YES Difficulty Paying Gas/Electric Bills: YES Difficulty Paying for Meds: YES Currently Unemployed: YES Education: Bachelor's Degree Difficulty w/ Childcare or Family Care: No Living arrangements: with family Occupation/Education: retired Spiritual care concerns: No Exam Narrative: General appearance: Well-developed, well-nourished Skin: Normal color Head: Normocephalic, nontraumatic Eyes: Clear conjunctiva ENT: Oropharynx normal, ears normal, nose normal Neck: Supple, nontender Chest and respiratory: Airway patent, no respiratory distress, no accessory muscle use Heart: Regular rate/rhythm Abdomen: Soft, moderate tenderness lower abdomen mainly right lower quadrant, no guarding or rebound, no organomegaly, quiet bowel sounds Vascular: Normal peripheral pulses, normal capillary refill. 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 No diarrhea. Vital signs are stable Physical examination showing tenderness right lower quadrant Differential diagnosis include diverticulitis, colitis, urinary tract infection, constipation, gastroenteritis, electrolyte imbalance, dehydration. Blood workup today includes CBC, CMP, lipase, lactic acid, PT PTT showed no significant abnormalities Urinalysis showed no evidence of infection CT abdomen and pelvis with IV contrast showed no significant abnormalities Respiratory panel negative for COVID, flu and RSV Diagnosis possible viral gastroenteritis, anxiety related symptoms. Discharged on Zofran the pt was discharged to home.the pt,s condition upon discharge was fair,education was provided to the pt in reference to the final impression,discharge study results,treatment,prognosis and need for follow up . Differential Diagnosis Differential Diagnosis: as above Vital Signs Vital Signs: Vital Signs Oxygen Delivery Room Air 12/30/24 18:21 Temperature 36.9 C 12/30/24 18:26 Pulse Rate 85 12/30/24 18:26 Respiratory Rate 18 12/30/24 18:26 Blood Pressure 91/75 L 12/30/24 18:26 Pulse Oximetry 100 12/30/24 18:26 Oxygen Delivery Room Air 12/30/24 18:26 Lab Data 12/30/24 18:55 12/30/24 18:55 Labs: Lab Results 12/30/24 12/30/24 12/30/24 Range/Units 18:55 19:34 19:35 WBC 6.9 (4.8-10.8) K/mm3 RBC 4.10 L (4.20-5.40) M/mm3 Hgb 12.6 (12.0-15.0) g/dL Hct 37.9 (35.0-49.0) % MCV 92.4 (78.0-102.0) fL MCH 30.7 (27.0-31.0) pg MCHC 33.2 (32-36) g/dL RDW 14.0 (11.6-14.4) % Plt Count 252 (150-420) K/mm3 MPV 9.9 (9.2-11.8) fl Immature Gran % (Auto) 0.3 H (0.0-0.0) % Neut % (Auto) 58.5 (50.0-70.0) % Lymph % (Auto) 32.5 (18.0-42.0) % [place] % (Auto) 6.6 (2.0-11.0) % Eos % (Auto) 1.7 (1.0-6.0) % Baso % (Auto) 0.4 (0.0-1.0) % Lymph # (Auto) 2.25 (1.10-4.50) K/mm3 [place] # (Auto) 0.46 (0.10-0.90) K/mm3 Eos # (Auto) 0.12 (0.02-0.50) K/mm3 Baso # (Auto) 0.03 (0.00-0.10) K/mm3 Abs Immat Gran (auto) 0.02 H (0.00-0.00) K/mm3 Absolute Neuts (auto) 4.04 (1.70-7.20) K/mm3 Absolute Nucleated RBC 0.00 (0.00-0.00) K/mm3 Nucleated RBC % 0.0 (0-0.0) % PT 10.7 (9.50-12.1) Seconds INR 1.0 APTT 33.0 H (23.9-30.70) Sec Sodium 138 (136-145) mmol/L Potassium 4.2 (3.5-5.1) mmol/L Chloride 103 (98-108) mmol/L Carbon Dioxide 23 (21-32) mmol/L Anion Gap 12 (4-12) mmol/L BUN 9 (7-18) mg/dL Creatinine 0.87 (0.55-1.02) mg/dL Estim Creat Clear Calc Not Reportable Estimated GFR > 60 (59 - ) Glucose 97 (70-99) mg/dL Calculated Osmolality 284 L (285-295) mOsm/kg Lactic Acid 1.1 (0.4-2.0) mmol/L Calcium 9.3 (8.5-10.1) mg/dL Total Bilirubin 0.7 (0.00-1.00) mg/dL AST 30 (15-37) U/L ALT 58 (14-59) U/L Alkaline Phosphatase 81 (46-116) U/L Total Protein 7.2 (6.4-8.2) g/dL Albumin 3.5 (3.4-5.0) g/dL Lipase 25 (16-77) U/L Urine Color Light yellow (Yellow) Urine Appearance Clear (Clear) Urine pH 7.0 (5.0-8.0) Ur Specific [place] 1.010 (1.010-1.020) Urine Protein Negative (Negative) Urine Glucose (UA) Negative (Negative) Urine Ketones Negative (Negative) Ur Blood (Man) Trace-intact H (Negative) Urine Nitrate Negative (Negative) Urine Bilirubin Negative (Negative) Urine Urobilinogen 0.2 (0.2-1.0) mg/dL Leukocyte Esterase Rfl Negative (Negative) TRUE/UL Influenza A (RT-PCR) Negative (Negative) Influenza B (RT-PCR) Negative (Negative) RSV (RT-PCR) Negative (Negative) SARS-CoV-2 RNA (RT-PCR) Negative (Negative) Imaging Data Radiologist's impression: Impressions Abdomen/Pelvis CT 02/11/25 19:49 IMPRESSION: No acute intra-abdominal findings, as detailed above. Critical Care Time Critical Care Time Critical Care Time: No Discharge Plan Discharge Clinical Impression: Abdominal pain Patient Disposition: Home, Self-Care Condition: Improved Instructions: Abdominal Pain (ED) Additional Instructions: Return if symptoms are worsening , call your family physician for appointment, take Tylenol as as needed for aches and pain, continue home medications. Patient Language: Malay Prescriptions: New ondansetron 4 mg tablet,disintegrating 4 mg PO Q4H 0 Days Qty: 10 0RF Rx Instructions: 1st dose 1-2 hr before radiation No Action rosuvastatin 40 mg tablet 40 mg PO DAILY hyoscyamine sulfate 0.125 mg tablet,disintegrating 0.125 mg PO QID tizanidine 2 mg capsule 2 mg PO TID sucralfate 1 gram tablet 1 g PO TID PRN (Reason: Acid Reflux) ascorbic acid (vitamin C) [Vitamin C] 1,000 mg Tablet 1 g PO DAILY aspirin 81 mg Tablet,Delayed Release (Dr/Ec) 81 mg PO DAILY yxhjesnw-rmyo-sfowr-oreg-capry 100 mg-150 mg- 50 mg-150 mg Capsule 1 cap PO DAILY mercaptopurine 50 mg tablet 50 mg PO DAILY sumatriptan succinate [Imitrex] 50 mg Tablet 50 mg PO ONCE PRN (Reason: MIGRAINES) hydrocortisone acetate 25 mg suppository 25 mg RECTAL DAILY PRN (Reason: CROHN'S EXAC) prednisone 20 mg tablet 2.5 mg PO DAILY Cipro HC 0.2-1 % Drops,Suspension 3 drp LEFT EAR Q12HR Qty: 10 0RF Saccharomyces boulardii [Florastor] 250 mg Capsule 250 mg PO TID Qty: 30 0RF linezolid 600 mg Tablet 600 mg PO Q12HR Qty: 18 0RF fluconazole 200 mg tablet 200 mg PO DAILY Qty: 16 0RF Humira Pen 40 mg/0.8 mL pen injector kit See Rx Instructions subcut .Every other Week Qty: 2 10RF Rx Instructions: inject one - 40 mg/0.8 mL pen every other week subcut . pantoprazole 40 mg tablet,delayed release (DR/EC) 40 mg PO QAM Qty: 90 0RF ondansetron 4 mg tablet,disintegrating See Rx Instructions .ROUTE .COMPLEX Qty: 30 0RF Dose Instruction: DISSOLVE ONE TABLET ON TONGUE EVERY 8 HOURS NEEDED FOR NAUSEA OR VOMITING Rx Instructions: DISSOLVE ONE TABLET ON TONGUE EVERY 8 HOURS NEEDED FOR NAUSEA OR VOMITING cholecalciferol (vitamin D3) 1,250 mcg (50,000 unit) capsule See Rx Instructions .ROUTE .COMPLEX Qty: 12 5RF Dose Instruction: TAKE ONE CAPSULE BY MOUTH WEEKLY ON SUNDAY Rx Instructions: TAKE ONE CAPSULE BY MOUTH WEEKLY ON SUNDAY albuterol sulfate 2.5 mg /3 mL (0.083 %) solution for nebulization 2.5 mg inhalation Q4-6H PRN (Reason: shortness of breath or wheezing) Qty: 90 0RF ropinirole 1 mg tablet 1 mg PO DAILY Qty: 30 3RF eszopiclone 3 mg tablet 3 mg PO QHS Qty: 90 0RF paroxetine HCl [Paxil] 40 mg tablet 40 mg PO HS Qty: 90 0RF albuterol sulfate 90 mcg/actuation HFA aerosol inhaler 2 inh inhalation Q4H PRN (Reason: shortness of breath or wheezing) Qty: 6.7 3RF Eliquis 5 mg tablet 5 mg PO BID Qty: 60 3RF oxycodone-acetaminophen 10-325 mg tablet 1 tablet PO Q8H PRN (Reason: pain) Qty: 90 0RF alprazolam 0.5 mg tablet 0.5 mg PO BID Qty: 60 0RF Follow-up/Referrals: Kassandra Hooks APRN [Primary Care Provider] -
--- OUTSIDE RECORDS SUMMARY | 2024-12-30 18:23 | XMS_ITS | Encounter Summary ---
Author Organization [facility] Healthcare Address [address] [place] [address] Care Team Providers Care Mechanical Cad Drafter Name Role Phone Odilon Vyas MD Primary Care Provider + [phone] Lucho Peralta MD Unavailable Xiomara Carlos MD Primary Care Provider [phone] Odilon Vyas MD Primary Care Provider [phone] Unknown, Notinfile Primary Care Provider Unavail able Kassandra Hooks NP Primary Care Provider + Encounter Details Date Type Department Care Team (Late st Contact Info) Description 01/21/2024 Telephone [facility] at [facility] [address] [address], [address] [place] [address] Massimo Glynn MD [address] [address] Social History Tobacco Use Types Packs/Day Years Used Date Smoking Tobacco: Former Cigarettes 2 - 2014 Passive Smoke Exposure: Past Smokeless Tobacco: Never Passive Exposure Comments:Da d smoked AUDIT-C Answer Date Recorded Q1: How often do you have a drink containing alcohol? Never 12/10/2023 Q2: How many drinks containi ng alcohol do you have on a typical day when you are drinking? Patient does not drink Q3: How often do you have si x or more drinks on one occasion? Never 12/10/2023 PHQ-2 Answer Date Recorded PHQ-2 Total Score (If total score is 3 or more points, staff should administer the PHQ-9) 0 09/25/2022 Personal Safety Answer Date Recorded Have you ever been in or are you currently in a harmful physical or emotional relationship or is someone making you feel afraid or unsafe? 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 Author CCM Chronic Pain Care Plan Chronic Care Management Worsening( 8:52 AM CDT) No Lashawn Thomas RN Note: Problem: Chronic Pain Goals: 1. Minimize further functional decline 2. Maximize quality of life 3. Control pain Strategies: - Activity/exercise program recommendation - Conservative stepwise pain medicine strategy with multi-disciplinary approach - Recommend healthy lifestyle strategies and compensatory methods as needed documented as of this encounter Visit Diagnoses Not on filedocumented in this encounter Care Teams Mechanical Cad Drafter Relationship Specialty Start Date End Date Odilon Vyas MD [address] [place] [address] PCP - General Family Medicine 02/08/23 02/07/24 Xiomara Carlos MD [address] [place] [address] PCP - General Psychiatry 02/08/24 03/23/24 Odilon Vyas MD [address] [place] [address] PCP - General Family Medicine 03/24/24 08/12/24 Unknown, Notinfile PCP - General 08/13/24 08/26/24 Kassandra Hooks NP [address] [facility] [place] [address] PCP - General Nurse Practitioner 08/27/24 Lucho Peralta MD [address] [place] [address] Referring Physician Otolaryngology 12/07/23 documented as of this encounter
--- OUTSIDE RECORDS SUMMARY | 2024-12-30 18:23 | XMS_ITS | Encounter Summary ---
Author Organization [facility] Address [address] [place] [address] Phone Care Team Providers Care Metal Off Bearer Name Role Phone Jesus Gonzalez DO Primary Care Provider Odilon Vyas MD Primary Care Provider [phone] Lucho Peralta MD Unavailable Xiomara Carlos MD Primary Care Provider Odilon Vyas MD Primary Care Provider [phone] Unknown, Notinfile Primary Care Provider Unavail able Kassandra Hooks NP Primary Care Provider + Encounter Details Date Type Department Care Team (Late st Contact Info) Description 12/08/2022 Orders Only [facility] Scanning, Provider Social History Tobacco Use Types Packs/Day Years Used Date Smoking Tobacco: Former Smokeless Tobacco: Never AUDIT-C Answer Date Recorded Frequency of Alcohol Consumption Not on file 09/25/2022 Q2: How many drinks containi ng alcohol do you have on a typical day when you are drinking? 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 Gender Identity Female 06/12/2023 3:27 PM CDT Sexual Orientation Lesbian 06/12/2023 3: 27 PM CDT documented as of this encounter Plan of Treatment Scheduled Procedures Name Priority Associated Diagnoses Date/Ti me COLONOSCOPY Iron deficiency documented as of this encounter Procedures Procedure Name Priority Date/Time Associated Diagnosis Comments SCAN - RADIOLOGY/IMAGING 12/08/2022 documented in this encounter Results * SCAN - RADIOLOGY/IMAGING (12/08/2022) Anatomical Region Laterality Modality Other us Provider Scanning Final Result documented in this encounter Visit Diagnoses Not on filedocumented in this encounter Care Teams Metal Off Bearer Relationship Specialty Start Date End Date Jesus Gonzalez DO [address] [place] [address] PCP - General Family Medicine 10/26/21 02/07/23 Odilon Vyas MD [address] [place] [address] PCP - General Family Medicine 02/08/23 02/07/24 Xiomara Carlos MD [address] [place] [address] PCP - General Psychiatry 02/08/24 03/23/24 Odilon Vyas MD [address] [place] [address] PCP - General Family Medicine 03/24/24 08/12/24 Unknown, Notinfile PCP - General 08/13/24 08/26/24 Kassandra Hooks NP [address] [place] [address] [place] [address] PCP - General Nurse Practitioner 08/27/24 Lucho Peralta MD [address] [facility] [place] [address] Referring Physician Otolaryngology 12/07/23 documented as of this encounter
--- OUTSIDE RECORDS SUMMARY | 2024-12-30 18:23 | XMS_ITS | Encounter Summary ---
Author Organization [facility] Healthcare Address [address] [place] [address] Care Team Providers Care Integrated Circuit Design Engineer Name Role Phone Odilon Vyas MD Primary Care Provider + [phone] Lucho Peralta MD Unavailable Xiomara Carlos MD Primary Care Provider [phone] Odilon Vyas MD Primary Care Provider [phone] Unknown, Notinfile Primary Care Provider Unavail able Kassandra Hooks NP Primary Care Provider + Encounter Details Date Type Department Care Team (Late st Contact Info) Description 01/18/2024 Telephone [facility] Management [facility] at [facility] [address] [address], [address] [place] [address] Massimo Glynn MD [address] [address] Social History Tobacco Use Types Packs/Day Years [...] on file 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 Gender Identity Female 06/12/2023 3:27 PM CDT [...] on filedocumented in this encounter Care Teams Integrated Circuit Design Engineer Relationship Specialty Start Date End Date Odilon Vyas MD [address] [place] [address] PCP - General Family Medicine 02/08/23 02/07/24 Xiomara Carlos MD [address] [place] [address] PCP - General Psychiatry 02/08/24 03/23/24 Odilon Vyas MD [address] [place] [address] PCP - General Family Medicine 03/24/24 08/12/24 Unknown, Notinfile PCP - General 08/13/24 08/26/24 Kassandra Hooks NP [address] [facility] [place] [address] PCP - General Nurse Practitioner 08/27/24 Lucho Peralta MD [address] [place] [address] Referring Physician Otolaryngology 12/07/23 documented as of this encounter
--- OUTSIDE RECORDS SUMMARY | 2024-12-30 18:24 | XMS_ITS | Encounter Summary ---
Author Organization [facility] Address [address] [place] [address] Care Team Providers Care Packaging Machine Supplies Distributor Name Role Phone Lucho Peralta MD Unavailable Kassandra Hooks NP Primary Care Provider + Encounter Details Date Type Department Care Team (Late st Contact Info) Description 12/29/2024 10:20 AM TOP COLLAR MAKER Lab [facility] [address] [place] [address] Crohn's disease of both small and large intestine with other complication (HCC) Social History Tobacco Use Types Packs/Day Years Used Date Smoking Tobacco: Former Cigarettes 2 20 0 11/19/1994 - 2014 Passive Smoke Exposure: Past Smokeless Tobacco: Never Comments:Glad I quit Passive Exposure Comments:Dad smoked AUDIT-C Answer Date Recorded Q1: How often do you have a drink containing alcohol? Never 09/18/2024 Q2: How many drinks containi ng alcohol do you have on a typical day when you are drinking? Patient does not drink Q3: How often do you have si x or more drinks on one occasion? Never 09/18/2024 PHQ-2 Answer Date Recorded PHQ-2 Total Score (If total score is 3 or more points, staff should administer the PHQ-9) 0 09/25/2022 Hunger Vital Sign Answer Date Recorded Within the past 12 months, y ou worried that your food would run out before you got the money to buy more. Never true 02/25/20 24 Within the past 12 months, t he food you bought just didn't last and you didn't have money to get more. Never true 02/25/2024 Personal Safety Answer Date Recorded Have you ever been in or are you currently in a harmful physical or emotional relationship or is someone making you feel afraid or unsafe? Denies 04/08/2024 Comments No Sex and Gender Information Value Date Recorded Sex Assigned at Not on file Legal Sex Female 10:13 AM TOP COLLAR MAKER Gender Identity Female 06/12/2023 3:27 PM CDT Sexual Orientation Lesbian 06/12/2023 3: 27 PM CDT documented as of this encounter Plan of Treatment Pending Results Name Type Priority Associated Diagnoses Date /Time Adalimumab quantitative with reflex to antibody, serum Lab Routine Crohn's disease of both small and large intestine with other complication (HCC) 12/29/2024 10:27 AM TOP COLLAR MAKER T-SPOT.TB Blood Microbiology Routine Crohn's disease of both small and large intestine with other complication (HCC) 12/29/2024 10:27 AM TOP COLLAR MAKER Scheduled Procedures Name Priority Associated Diagnoses Date/Ti me COLONOSCOPY Iron deficiency documented as of this encounter Goals Goal Patient Goal Type Associated Problems Recent Progress Patient-Stated? Author CCM Chronic Pain Care Plan Chronic Care Management Worsening( 8:52 AM CDT) No Lashawn Thomas, RN Note: Problem: Chronic Pain Goals: 1. Minimize further functional decline 2. Maximize quality of life 3. Control pain Strategies: - Activity/exercise program recommendation - Conservative stepwise pain medicine strategy with multi-disciplinary approach - Recommend healthy lifestyle strategies and compensatory methods as needed documented as of this encounter Procedures Procedure Name Priority Date/Time Associated Diagnosis Comments DIFFERENTIAL AUTO Routine 12/29/2024 10: 27 AM TOP COLLAR MAKER Crohn's disease of both small and large intestine with other complication (HCC) CBC WITH AUTO DIFFERENTIAL Routine 12/29/2024 10:27 AM TOP COLLAR MAKER Crohn's disease of both small and large intestine with other complication (HCC) VITAMIN D 25 HYDROXY Routine 12/29/2024 10:27 AM TOP COLLAR MAKER Crohn's disease of both small and large intestine with other complication (HCC) CRP (ACUTE PHASE) Routine 12/29/2024 10: 27 AM TOP COLLAR MAKER Crohn's disease of both small and large intestine with other complication (HCC) VITAMIN B12 Routine 12/29/2024 10:27 AM TOP COLLAR MAKER Crohn's disease of both small and large intestine with other complication (HCC) documented in this encounter Results * Differential, auto (12/29/2024 10:27 AM TOP COLLAR MAKER) Neutrophil abs 4.1 1.5 - 6.5 K/cumm Imm gran abs 0.0 0.0 - 0.1 K/cumm [facility] Lymphocyte abs 1.5 0.8 - 3.3 K/cumm [facility] Monocyte abs 0.5 0.2 - 0.8 K/cumm [facility] Eosinophil abs 0.2 0.0 - 0.5 K/cumm [facility] Basophil abs 0.1 0.0 - 0.1 K/cumm [facility] Neutrophil pct 64.4 % [facility] Comment: Interpretive Data Percent cell count reference ranges are not reported, since discordance with absolute values may lead to misinterpretation of CBC data. Current Interpretive Data was last revised on 2018. Imm gran pct 0.5 % [facility] Comment: Interpretive Data Percent cell count reference ranges are not reported, since discordance with absolute values may lead to misinterpretation of CBC data. Current Interpretive Data was last revised on 2018. Lymphocyte pct 23.6 % [facility] Comment: Interpretive Data Percent cell count reference ranges are not reported, since discordance with absolute values may lead to misinterpretation of CBC data. Current Interpretive Data was last revised on 2018. Monocyte pct 7.6 % [facility] Comment: Interpretive Data Percent cell count reference ranges are not reported, since discordance with absolute values may lead to misinterpretation of CBC data. Current Interpretive Data was last revised on 2018. Eosinophil pct 3.0 % [facility] Comment: Interpretive Data Percent cell count reference ranges are not reported, since discordance with absolute values may lead to misinterpretation of CBC data. Current Interpretive Data was last revised on 2018. Basophil pct 0.9 % [facility] Comment: Interpretive Data Percent cell count reference ranges are not reported, since discordance with absolute values may lead to misinterpretation of CBC data. Current Interpretive Data was last revised on 2018. Blood 12/29/2024 10:2 7 AM TOP COLLAR MAKER 12/29/2024 11:47 AM TOP COLLAR MAKER Corazon Becerra RN HOUSE SUPERVISOR LAB BLOOD ORDERABLES Final Result Performing Organization Address City/[facility]/ZIP Co de Phone Number [facility] [place] [address] * (ABNORMAL) CBC with auto differential (12/29/2024 10:27 AM TOP COLLAR MAKER) WBC 6.4 3.8 - 9.9 K/cumm Hgb 13.5 11.9 - 15.5 g/dL [facility] Hct 41.8 35.6 - 45.5 % [facility] Plt 275 150 - 400 K/cumm [facility] MPV 10.3 9.1 - 12.3 fL [facility] RBC 4.33 3.90 - 5.20 M/cumm [facility] MCV 96.5(H) 81.3 - 96.4 fL [facility] MCH 31.2 27.1 - 33.3 pg [facility] MCHC 32.3 32.3 - 35.7 g/dL [facility] RDW CV 14.4 11.1 - 14.9 % [facility] RDW SD 51.3(H) 35.7 - 48.1 fL [facility] NRBC abs 0.00 0.00 - 0.01 K/cumm [facility] Blood 12/29/2024 10:2 7 AM TOP COLLAR MAKER 12/29/2024 11:47 AM TOP COLLAR MAKER Corazon Becerra NP LAB BLOOD ORDERABLES Final Result Performing Organization Address [facility]/ZIP Co de Phone Number [facility] Department [place] [address] * CRP (acute phase) (12/29/2024 10:27 AM TOP COLLAR MAKER) CRP 1.0 <=10.0 mg/L Blood 12/29/2024 10:2 7 AM TOP COLLAR MAKER 12/29/2024 11:47 AM TOP COLLAR MAKER Corazon Becerra RN HOUSE SUPERVISOR LAB BLOOD ORDERABLES Final Result [facility] [place] [address] * Vitamin B12 (12/29/2024 10:27 AM TOP COLLAR MAKER) Vitamin B12 524 230 - 1,250 pg/mL Blood 12/29/2024 10:2 7 AM TOP COLLAR MAKER 12/29/2024 11:47 AM TOP COLLAR MAKER Corazon Becerra RN HOUSE SUPERVISOR LAB BLOOD ORDERABLES Final Result Performing Organization Address City/[facility]/ZIP Co de Phone Number [facility] [place] [address] * (ABNORMAL) Vitamin D 25 hydroxy (12/29/2024 10:27 AM TOP COLLAR MAKER) Pathologist [facility] Vitamin D 25-OH 89(H) 30 - 80 ng/mL Blood 12/29/2024 10:2 7 AM TOP COLLAR MAKER 12/29/2024 11:47 AM TOP COLLAR MAKER Corazon Becerra RN HOUSE SUPERVISOR LAB BLOOD ORDERABLES Final Result Performing Organization Address City/[facility]/[place] [address] documented in this encounter Visit Diagnoses Diagnosis Crohn's disease of both small and large intestine with other complication (HCC) documented in this encounter Care Teams Packaging Machine Supplies Distributor Relationship Specialty Start Date End Date Kassandra Hooks NP [address] [facility] [place] [address] PCP - General Nurse Practitioner 08/27/24 Lucho Peralta MD [address] [place] [address] Referring Physician Otolaryngology 12/07/23 documented as of this encounter
--- OUTSIDE RECORDS SUMMARY | 2024-12-30 18:24 | XMS_ITS | Continuity of Care Document ---
Author Organization [facility] Address [address] [place] [address] Phone Care Team Providers Care Director Of Employer Services Name Role Phone Lorrie HUYNH, Meeta Unavailable Unavailable Advance Directives Directive Yes / No Effective Date File Name No Information Encounters Encounter Description Practice Location Reason(s) For Visit Diagnoses Date Provider Providers Copied on Encounter [facility], [facility], [place], [id number], [place] tel:[phone] [facility] No Information Lorrie Tim. [address], [place], [id number], [place]. tel:[phone] Family History Family Member Type Diagnosis Age At Onset Mother Problem (finding) malignant neoplasm of l kaitlyner Father Problem (finding) hypertension Payers Payer name Insurance type Covered democrat ID Authoriza tion(s) [facility] Ppo/EPO BL [id number] Social History Type Description Quantity Date Captured [...]
--- OUTSIDE RECORDS SUMMARY | 2024-12-30 18:24 | XMS_ITS | Encounter Summary ---
Author Organization [facility] Address [address] [place] [address] Phone Care Team Providers Care Property Developer Name Role Phone Jesus Gonzalez DO Primary Care Provider Odilon Vyas MD Primary Care Provider [phone] Lucho Peralta MD Unavailable Xiomara Carlos MD Primary Care Provider [phone] Odilon Vyas MD Primary Care Provider [phone] Unknown, Notinfile Primary Care Provider Unavail able Kassandra Hooks NP Primary Care Provider + Encounter Details Date Type Department Care Team (Latest Contact Info) Description 08/24/2015 Orders Only [facility] CARDIOLOGY Chasity Borjas, CARMINA [address] [facility] [address] [place], [place] [id number] Social History Tobacco Use Types Packs/Day Years Used Date Smoking Tobacco: Never Assessed Comments Unknown Sex and Gender Information Value Date Recorded Sex Assigned at Not on file 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 Sex 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 Gender Identity Female 06/12/2023 3:27 PM CDT Sexual Orientation Lesbian 06/12/2023 3: 27 PM CDT documented as of this encounter Plan of Treatment Scheduled Procedures Name Priority Associated Diagnoses Date/Ti me COLONOSCOPY Iron deficiency documented as of this encounter Procedures Procedure Name Priority Date/Time Associated Diagnosis Comments CARDIOLOGY DOCUMENT SCAN 08/24/2015 documented in this encounter Results * Cardiology Document Scan (08/24/2015) Anatomical Region Laterality Modality Other us Chasity Borjas RN CV CARDIAC SERVICES P ROCEDURES Edited Result - Final documented in this encounter Visit Diagnoses Not on filedocumented in this encounter Care Teams Property Developer Relationship Specialty Start Date End Date Jesus Gonzalez DO [address] [place] [address] PCP - General Family Medicine 10/26/21 02/07/23 Odilon Vyas MD [address] [place] [address] PCP - General Family Medicine 02/08/23 02/07/24 Xiomara Carlos MD [address] [place] [address] PCP - General Psychiatry 02/08/24 03/23/24 Odilon Vyas MD [address] [place] [address] PCP - General Family Medicine 03/24/24 08/12/24 Unknown, Notinfile PCP - General 08/13/24 08/26/24 Kassandra Hooks NP [address] [place] [address] DEPT [place] [address] PCP - General Nurse Practitioner 08/27/24 Lucho Peralta MD 9 [facility] [place] [address] Referring Physician Otolaryngology 12/07/23 documented as of this encounter
--- OUTSIDE RECORDS SUMMARY | 2024-12-30 18:24 | XMS_ITS ---
Author Organization [facility] [employer] Address [address] [facility] [address] [place] [address] Care Team Providers Care Garment Looper Name Role Phone Kassandra De Guzman Primary Care Provider Kaelyn tamia Rankinshaquille Kiah Unavailable [phone] Lilia Tiara Unavailable [phone] REASON FOR VISIT Follow up therapy, depression and anxiety Social History Tobacco Use: Social History Observation Description Date Details (start date - stop date) Former Smoker NA - NA Sex Assigned At : Social History Observation Description Sex Assigned At Female Tobacco Control (Standard) Question Answer Notes Tobacco use: Former smoker Encounters Encounter Location Date Provider Diagnosis [facility], [place] [address] [facility] [address] [place] [address] 12/18/2024 Tiara Lilia Major depressive disorder, recurrent severe without psychotic features F33.2 and Anger reaction R45.4 Assessments Encounter Date Diagnosis (ICD Code) Assessment Notes Treatment Notes Treatment Clinical Notes Section Notes 12/18/2024 Major depressive disorder, recurrent severe without psychotic features (ICD-10 - F33.2) Assessment and Plan: Grief and Emotional Distress The patient is grappling with the anniversary of their father's and the absence of their uncle. Plan: Encourage the patient to persist in attending individual therapy sessions. Recommend joining a grief support group to exchange experiences and coping mechanisms with others facing similar losses. Communication Issues in the Relationship The patient has reported difficulties in communication with their partner, Alexa, and has expressed frustration with her behavior. Plan: Encourage the patient to keep working on enhancing their communication skills in individual therapy. Suggest couples therapy for the patient and Alexa to tackle communication issues and foster a healthier relationship. Hearing Impairment The patient has noted a difficulty in hearing, particularly against background noise, which exacerbates communication problems with their partner. Plan: Recommend undergoing a hearing evaluation to gauge the severity of the hearing impairment and explore potential interventions, such as hearing aids. Anxiety and Behavioral Issues in the Child (Francisco Javier) The patient has observed that their son, Francisco Javier, is exhibiting anxiety and behavioral challenges. Plan: Advise the patient to arrange a psychological evaluation for Francisco Javier to evaluate his anxiety and pinpoint suitable interventions. Propose establishing a consistent and structured routine for Francisco Javier, inclusive of clear expectations and consequences for his actions. Advocate for family therapy to remedy communication and behavioral issues within the family dynamic. Patient's Medical History and Concerns The patient has a history of multiple surgeries, chronic sinus infection, and a familial history of various medical conditions. Plan: Urge the patient to keep up with regular follow-up appointments with their primary care physician to oversee their health and tackle any arising concerns. Recommend the patient to persist in fortifying themselves emotionally through individual therapy and participation in support groups. Coping with Stress and Setting Boundaries The patient is facing challenges in setting boundaries and managing stress, stemming from their partner's work situation and their own medical history. Plan: Encourage the patient to continue employing stress management techniques in individual therapy. Advise on establishing healthy boundaries with their partner concerning work-related discussions and emphasize the importance of self-care. 12/18/2024 Anger reaction (ICD-10 - R45.4) Assessment and Plan: Grief and Emotional Distress The patient is grappling with the anniversary of their father's and the absence of their uncle. Plan: Encourage the patient to persist in attending individual therapy sessions. Recommend joining a grief support group to exchange experiences and coping mechanisms with others facing similar losses. Communication Issues in the Relationship The patient has reported difficulties in communication with their partner, Alexa, and has expressed frustration with her behavior. Plan: Encourage the patient to keep working on enhancing their communication skills in individual therapy. Suggest couples therapy for the patient and Alexa to tackle communication issues and foster a healthier relationship. Hearing Impairment The patient has noted a difficulty in hearing, particularly against background noise, which exacerbates communication problems with their partner. Plan: Recommend undergoing a hearing evaluation to gauge the severity of the hearing impairment and explore potential interventions, such as hearing aids. Anxiety and Behavioral Issues in the Child (Francisco Javier) The patient has observed that their son, Francisco Javier, is exhibiting anxiety and behavioral challenges. Plan: Advise the patient to arrange a psychological evaluation for Francisco Javier to evaluate his anxiety and pinpoint suitable interventions. Propose establishing a consistent and structured routine for Francisco Javier, inclusive of clear expectations and consequences for his actions. Advocate for family therapy to remedy communication and behavioral issues within the family dynamic. Patient's Medical History and Concerns The patient has a history of multiple surgeries, chronic sinus infection, and a familial history of various medical conditions. Plan: Urge the patient to keep up with regular follow-up appointments with their primary care physician to oversee their health and tackle any arising concerns. Recommend the patient to persist in fortifying themselves emotionally through individual therapy and participation in support groups. Coping with Stress and Setting Boundaries The patient is facing challenges in setting boundaries and managing stress, stemming from their partner's work situation and their own medical history. Plan: Encourage the patient to continue employing stress management techniques in individual therapy. Advise on establishing healthy boundaries with their partner concerning work-related discussions and emphasize the importance of self-care. Plan Of Treatment Next Appt Details Follow Up: 1 Week, Reason: Progress Notes * Danette THOMAS LDOB: [birth year] (54 yo F)Acc No.[id number]:12/18/2024 Patient: Danette Ray AAS Provider: Arina Rodrigues :1970 A ge:54 Y S ex:Female Date:12/18/2024 Address:[address] [place], [place] [id number] Pcp:Kassandra Hooks [facility] Data: * Time Tracker: * Date Start Time End Time Duration User Type Captured By Mode Notes 12/18/2024 04:01 PM 05:08 PM 01:07:31 Therapist Levar Rodrigues Timer * Chief Complaints: * 1 . Follow up therapy, depression and anxiety. * HPI: D epression Screening: CHAYITO-7 (2018 Edition) F eeling nervous, anxious, or on edge?Several days, N ot being able to stop or control worrying N early every day, W orrying too much about different things N early every day, T rouble relaxing M ore than half the days, B eing so restless that it is hard to sit still S everal days, B ecoming easily annoyed or irritable S everal days, F eeling afraid as if something awful might happen Nearly every day, T otal CHAYITO-7 Score 1 4, I f you checked any problems, how difficult have they made it for you to do your work, take care of things at home, or get along with other people? V michelle difficult, I nterpretation of Total ( 10 to 14) Moderate. C [place]-Suicide Severity Rating Scale: Suicide Risk (CSRS-screener) i n the past one month Have you wished you were or wished you could go to sleep and not wake up? Y es, i n the past one month Have you actually had any thoughts of killing yourself? N o. D epression screening: PHQ-9 L ittle interest or pleasure in doing things M ore than half the days, F eeling down, depressed, or hopeless S everal , T rouble falling or staying asleep, or sleeping too much S ever, F eeling tired or having little energy M ore than half the days, P oor appetite or overeating S ever, F eeling bad about yourself or that you are a failure, or have let yourself or your family down M ore than half the days, T rouble concentrating on things, such as reading the newspaper or watching television M ore than half the days, M oving or speaking so slowly that other people could have noticed; or the opposite, being so fidgety or restless that you have been moving around a lot more than usual S ever, T houghts that you would be better off or of hurting yourself in some way S ever (Consider Suicide Assessment Risk), T otal Score 1 3, I nterpretation M oderate Depression. F unctional Status: Client presents today for psychotherapy to treat depression and anxiety. Based on the session, the client appears to be making fair progress. Changes to the treatment plan are not recommended at this time. Client denies wanting to harm self or others at this time. Discussed continued treatment with client. She would like to meet again in one week. The patient reports ongoing relationship difficulties with her partner, Alexa, primarily centered around communication issues. These challenges are exacerbated by the patient's hearing impairment, which causes frustration when Alexa speaks quietly or mumbles. The patient's medical history is significant, including multiple ear and sinus surgeries, totaling 17 procedures over the past 5-6 years. She also reports a chronic sinus infection lasting approximately five years, with a cyst under her frontal lobe discovered and removed in 2016. The patient expresses concern about her son Francisco Javier's behavior, noting his struggles with anxiety and suicidal ideation. She describes difficulties in disciplining him and managing his emotional needs, which contributes to tension in her relationship with Alexa. The patient's medical history is extensive, including cysts and partial ear removal, as well as an malformation requiring partial skull removal. She reports liver and kidney function problems, with hemoglobin levels dropping to 10-12. Additionally, she mentions a family history of myeloid dysplastic syndrome and lupus. Other medical issues include neck pain since 2007, for which a plastic piece was inserted in the back of her head. 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 She lives with her spouse Alexa and son Francisco Javier, and has a daughter named Stefany and two stepchildren. The patient almost completed a specialty in criminal psychology. She reports high stress levels due to relationship difficulties and parenting challenges. Her social support appears limited, with strained family relationships. The patient's review of systems indicates hearing difficulties, especially with background noise, neck pain, low liver and kidney function, and low hemoglobin levels. She also has a history of prescribed narcotic use for 6 months. * Family History: M other: . Family history of physical, mental, and emotional stress. * Social History: T obacco Use: T obacco Control (Standard) T obacco use: F ormer smoker. D rug/Alcohol: D rugs H ave you used drugs other than those for medical reasons in the past 12 months??No. D o you drink alcohol?: No. * Medications: N one * Examination: P sychiatry: Appearance: w ell-groomed. Abnormal body movements: n one. Affect / mood: a ppropriate, full range. Aggression: l ow. Anger control: f air. Attention: f air. Attitude: c ooperative. Homicidal ideation: n one. Suicidal ideation: p assive; denies active SI, plan, or intent. Memory status: n o impairment noted. Degree of awareness of surroundings: w ithin normal limits.? Delusions: n o. Hallucinations: n o. Impulse control: f air. Insight: g ood. Intellectual functioning: n o impairment noted. Judgement: f air. Orientation: a wake, alert and oriented x 3. Perceptual disorders: n o perceptual disorder noted. Psychomotor activity: w ithin normal range. Speech / language: n ormal rate, volume, and articulation (RVR). Thought content: s uicidal ideation. Thought process: i ntact. G eneral Examination: M ental Status Examination: The patient displayed signs of distress and frustration, which were attributed to challenges within familial and interpersonal relationships. Speech was clear, and thought processes were coherent throughout the examination. The patient voiced feelings of resentment and emotional strain. There were no indications of hallucinations or delusions observed during the assessment. Physical Examination: The patient has a noted hearing impairment, with specific difficulties in distinguishing speech amidst background noise and understanding mumbling. There is a history of multiple surgeries related to sinus and ear issues, including the removal of cysts and parts of the ear. The patient reports a chronic sinus infection. Past medical history is significant for a Chiari malformation, which necessitated surgical treatment. Diagnostic Test Results and Labs: A CAT scan conducted by Dr. Hoskins identified a 7 millimeter cyst located beneath the frontal lobe in 2016. No recent laboratory results or diagnostic tests were available for review during this session. Assessment: * Assessment: 1. M ajor depressive disorder, recurrent severe without psychotic features - F33.2 (Primary)? 2. A nger reaction - R45.4 Assessment and Plan: Grief and Emotional Distress T he patient is grappling with the anniversary of their father's and the absence of their uncle. P pita: E ncourage the patient to persist in attending individual therapy sessions. R ecommend joining a grief support group to exchange experiences and coping mechanisms with others facing similar losses. Communication Issues in the Relationship T he patient has reported difficulties in communication with their partner, Alexa, and has expressed frustration with her behavior. P pita: E ncourage the patient to keep working on enhancing their communication skills in individual therapy. S uggest couples therapy for the patient and Alexa to tackle communication issues and foster a healthier relationship. Hearing Impairment T he patient has noted a difficulty in hearing, particularly against background noise, which exacerbates communication problems with their partner. P pita: R ecommend undergoing a hearing evaluation to gauge the severity of the hearing impairment and explore potential interventions, such as hearing aids. Anxiety and Behavioral Issues in the Child (Francisco Javier) T he patient has observed that their son, Francisco Javier, is exhibiting anxiety and behavioral challenges. P pita: A dvise the patient to arrange a psychological evaluation for Francisco Javier to evaluate his anxiety and pinpoint suitable interventions. P ropose establishing a consistent and structured routine for Francisco Javier, inclusive of clear expectations and consequences for his actions. A dvocate for family therapy to remedy communication and behavioral issues within the family dynamic. Patient's Medical History and Concerns T he patient has a history of multiple surgeries, chronic sinus infection, and a familial history of various medical conditions. P pita: U rge the patient to keep up with regular follow-up appointments with their primary care physician to oversee their health and tackle any arising concerns. R ecommend the patient to persist in fortifying themselves emotionally through individual therapy and participation in support groups. Coping with Stress and Setting Boundaries T he patient is facing challenges in setting boundaries and managing stress, stemming from their partner's work situation and their own medical history. P pita: E ncourage the patient to continue employing stress management techniques in individual therapy. A dvise on establishing healthy boundaries with their partner concerning work- related discussions and emphasize the importance of self-care. Plan: * Behavioral Health Treatment Plan: I mported Date:12/18/2024 05:27 PM Imported By:Tiara Rodrigues Term Therapy ProgramBarriersPoor Family supportMedication non- compliancelack of transportationProblem/Goal/Objective/InterventionGroup1: Adult Psychotherapy 5eProblem 1:Anger Control ProblemsICDAnger reactionBehavioral DefinitionDemonstrates an angry overreaction to perceived disapproval, rejection, or criticism.Displays body language suggesting anger, including tense muscles (e.g., clenched fist or jaw), glaring looks, or refusal to make eye contact.Reports a history of explosive, aggressive outbursts out of proportion with any precipitating stressors, leading to verbal attacks, assaultive acts, or destruction of property.Shows direct or indirect evidence of physiological arousal related to anger.Shows cognitive biases associated with anger (e.g., demanding expectations of others, overly generalized labeling of the targets of anger, anger in response to perceived slights ).Shows a pattern of general excessive anger across many situations.Shows a pattern of episodic excessive anger in response to specific situations or situational themes.GoalLearn and implement anger management skills to reduce the level of anger and irritability that accompanies it. Progress Start Date Target Date Assigned To Priority Statu s 3% 2024-11-04 2025-02-02 Tiara Rodrigues Objective* Learn and implement calming and coping strategies as part of an overall approach to managing anger. Progress Start Date Target Date Assigned To Status 3% 2024-11-04 2025-02-02 Tiara Rodrigues Intervention* Teach the client calming techniques (e.g., progressive muscle relaxation, breathing induced relaxation, calming imagery, cue-controlled relaxation, applied relaxation, mindful breathing) as part of atailored strategy for reducing chronic and acute physiological tension that accompanies the escalation of his/her angry feelings. Start Date Target Date Assigned To Status 2024-11-04 2025-02-02 Tiara Rodrigues * Treatment: * Procedure Codes: 9 0837 PSYCHOTHERAPY W/PATIENT 60 MINUTES * Follow Up: 1 Week * Billing Information: * Visit Code: * Procedure Codes: 39155 PSYCHOTHERAPY W/PATIENT 60 MINUTES. * RDS ADMINISTRATOR Sign off status: Completed Signatures: No Ad Hoc Signature Added true * Provider: Arina Rodrigues Date: 0 12/18/2024 Generated for Matt smith/Mamie/Steven on: 0 12/30/2024 06:24 PM RECORDS ADMINISTRATOR
--- OUTSIDE RECORDS SUMMARY | 2024-12-30 18:24 | XMS_ITS ---
Author Organization [facility] [employer] Address [address] [facility] [address] [place] [address] Care Team Providers Care Senior Clinical Sas Programmer Name Role Phone Kassandra De Guzman Primary Care Provider Kaelyn tamia Mejias Kiah Unavailable [phone] Isis Rodriguesily Unavailable [phone] REASON FOR VISIT Therapy Visit, Depression screening positive Social History Tobacco Use: Social History Observation Description Date Details (start date - stop date) Former Smoker NA - NA Sex Assigned At : Social History Observation Description Sex Assigned At Female Tobacco Control (Standard) Question Answer Notes Tobacco use: Former smoker Encounters Encounter Location Date Provider Diagnosis [facility] [employer] [facility], Walk[address] [facility] [address] [place] [address] 12/25/2024 Tiara Rodrigues Major depressive disorder, recurrent severe without psychotic features F33.2 and Anger reaction R45.4 Assessments Encounter Date Diagnosis (ICD Code) Assessment Notes Treatment Notes Treatment Clinical Notes Section Notes 12/25/2024 Major depressive disorder, recurrent severe without psychotic features (ICD-10 - F33.2) Assessment and Plan: Relationship and Communication Issues Encourage Corazon and Alexa to consider couples counseling to address their relationship and communication challenges. Recommend setting boundaries and expectations for communication, especially when Alexa is away for work. Encourage open and honest conversations about their feelings and concerns to foster a healthier relationship. Anger Management and Potential Aggression Continue to monitor Corazon's progress in managing anger and potential aggression towards Irina. Encourage Corazon to utilize coping strategies and techniques learned in therapy to better manage her emotions. Behavioral Issues and Family Dynamics Encourage Corazon and Alexa to maintain consistent communication with [facility]'s teachers and school staff. Recommend family therapy to address any underlying issues and improve communication between Francisco Javier, Corazon, and Alexa. Encourage establishing routines and boundaries for Francisco Javier, including consequences for negative behavior and rewards for positive behavior. Stress Management and Self-Care Encourage Corazon to prioritize self-care and stress management techniques, such as exercise, relaxation, and hobbies. Recommend setting aside time for regular check-ins and emotional support with partner to strengthen their prasad. Encourage seeking additional support from friends, family, or support groups if needed to navigate their challenges more effectively. Follow-up: Schedule a follow-up appointment to monitor progress and continue addressing the identified issues. 12/25/2024 Anger reaction (ICD-10 - R45.4) Assessment and Plan: Relationship and Communication Issues Encourage Corazon and Alexa to consider couples counseling to address their relationship and communication challenges. Recommend setting boundaries and expectations for communication, especially when Alexa is away for work. Encourage open and honest conversations about their feelings and concerns to foster a healthier relationship. Anger Management and Potential Aggression Continue to monitor Corazon's progress in managing anger and potential aggression towards Irina. Encourage Corazon to utilize coping strategies and techniques learned in therapy to better manage her emotions. Behavioral Issues and Family Dynamics Encourage Corazon and Alexa to maintain consistent communication with [facility]'s teachers and school staff. Recommend family therapy to address any underlying issues and improve communication between Francisco Javier, Corazon, and Alexa. Encourage establishing routines and boundaries for Francisco Javier, including consequences for negative behavior and rewards for positive behavior. Stress Management and Self-Care Encourage Corazon to prioritize self-care and stress management techniques, such as exercise, relaxation, and hobbies. Recommend setting aside time for regular check-ins and emotional support with partner to strengthen their prasad. Encourage seeking additional support from friends, family, or support groups if needed to navigate their challenges more effectively. Follow-up: Schedule a follow-up appointment to monitor progress and continue addressing the identified issues. Plan Of Treatment Next Appt Details Follow Up: 1 Week, Reason: Progress Notes * Danette THOMAS LDOB: [birth year] (54 yo F)Acc No.[id number]:12/25/2024 Patient: Lisa Ray AASdenia Erasmo Provider: Arina Rodrigues :1970 A ge:54 Y S ex:Female Date:12/25/2024 Address:[address] [place], [place] [id number] Pcp:Kassandra Hooks [facility] Data: * Time Tracker: * Date Start Time End Time Duration User Type Captured By Mode Notes 12/25/2024 10:01 AM 10:51 AM 00:50:27 Therapist Levar Rodrigues Timer * Chief Complaints: * 1 . Therapy Visit. 2. Depression screening positive. * HPI: D epression Screening: CHAYITO-7 (2018 Edition) F eeling nervous, anxious, or on edge?Several days, N ot being able to stop or control worrying M ore than half the days,?Worrying too much about different things M ore than hafl the days, T rouble relaxing S everal , B eing so restless that it is hard to sit still S everal , B ecoming easily annoyed or irritable S everal days, F eeling afraid as if something awful might happen More than half the days, T otal CHAYITO-7 Score 1 0, I nterpretation of Total ( 10 to 14) Moderate. D epression screening: PHQ-9 L ittle interest or pleasure in doing things M ore than half the days, F eeling down, depressed, or hopeless S everal , T rouble falling or staying asleep, or sleeping too much M ore than half the days, F eeling tired or having little energy M ore than half the days, P oor appetite or overeating M ore than half the days, F eeling bad about yourself or that you are a failure, or have let yourself or your family down S everal , T rouble concentrating on things, such as reading the newspaper or watching television S everal , M oving or speaking so slowly that other people could have noticed; or the opposite, being so fidgety or restless that you have been moving around a lot more than usual N ot at all, T houghts that you would be better off or of hurting yourself in some way S everal days (Consider Suicide Assessment Risk), T otal Score 1 2, I nterpretation M oderate Depression. I ntervention D epression Screening Findings P ositve, F ollow-Up for Depression M ental health treatment assessment, Patient follow-up to return when and if necessary, S uicide Risk Assessment Performed 0 12/25/2024 ,?Additional Evaluation for Depression P sychiatric interview and evaluation, N deep of the standardized tool used for adult depression screening: [facility] (PHQ-9).? F unctional Status: Client presents today for psychotherapy to treat anger and relationship concerns. Based on the session, the client appears to be making good progress. Changes to the treatment plan are not recommended at this time. Client denies wanting to harm self or others at this time. Discussed continued treatment with client. She would like to meet again in one week. Corazon reports ongoing relationship issues with her partner, Alexa. She expresses frustration with Alexa's work-related complaints and her inability to set boundaries. Corazon describes feeling angry when Alexa constantly talks about her coworker, Irina. She acknowledges that she is working on managing her anger and improving her responses to these situations. Corazon also discusses challenges in co-parenting son Francisco Javier. She reports difficulties in maintaining discipline and consistency, particularly when Alexa is away for work. Corazon notes that Francisco Javier has been exhibiting behavioral issues at school and struggles with romantic relationships. The patient expresses concern about potential changes in their family dynamic due to Alexa's possible job promotion, which may require more travel. Corazon reports anxiety about maintaining their relationship and family structure with these potential changes. * Family History: M other: . Family history of physical, mental, and emotional stress, not specified. * Social History: T obacco Use: T [...] Examination: M ental Status Examination: The patient expressed concerns about relationship dynamics, particularly regarding communication and trust issues with a partner. Displayed a range of emotions during the session, from frustration to hopefulness about relationship improvements. Speech was coherent and goal-directed, focusing on relationship issues and personal insights. Assessment: * Assessment: 1. M ajor depressive disorder, recurrent severe without psychotic features - F33.2 (Primary)? 2. A nger reaction - R45.4 Assessment and Plan: Relationship and Communication Issues E ncourage Corazon and Alexa to consider couples counseling to address their relationship and communication challenges. R ecommend setting boundaries and expectations for communication, especially when Alexa is away for work. E ncourage open and honest conversations about their feelings and concerns to foster a healthier relationship. Anger Management and Potential Aggression C ontinue to monitor Corazon's progress in managing anger and potential aggression towards Irina. E ncourage Corazon to utilize coping strategies and techniques learned in therapy to better manage her emotions. Behavioral Issues and Family Dynamics E ncourage Corazon and Alexa to maintain consistent communication with Francisco Javier's teachers and school staff. R ecommend family therapy to address any underlying issues and improve communication between Francisco Javier, Corazon, and Alexa. E ncourage establishing routines and boundaries for Francisco Javier, including consequences for negative behavior and rewards for positive behavior. Stress Management and Self-Care E ncourage Corazon to prioritize self-care and stress management techniques, such as exercise, relaxation, and hobbies. R ecommend setting aside time for regular check-ins and emotional support with partner to strengthen their prasad. E ncourage seeking additional support from friends, family, or support groups if needed to navigate their challenges more effectively. Follow-up: Schedule a follow-up appointment to monitor progress and continue addressing the identified issues. Plan: * Behavioral Health Treatment Plan: I mported Date:12/25/2024 01:47 PM Imported By:Tiara Rodrigues [facility] Term Therapy ProgramBarriersPoor Family supportMedication non- compliancelack [...] Target Date Assigned To Priority Statu s 5% 2024-11-04 2025-02-02 Tiara Rodrigues Objective* Learn and implement calming and coping strategies as part of an overall approach to managing anger. Progress Start Date Target Date Assigned To Status 5% 2024-11-04 2025-02-02 Tiara Rodrigues Intervention* Teach the client calming techniques (e.g., progressive muscle relaxation, breathing induced relaxation, calming imagery, cue-controlled relaxation, applied relaxation, mindful breathing) as part of atailored strategy for reducing chronic and acute physiological tension that accompanies the escalation of his/her angry feelings. Start Date Target Date Assigned To Status 2024-11-04 2025-02-02 Tiara Rodrigues * Treatment: * Procedure Codes: 9 6127 BEHAV ASSMT W/SCORE & DOCD/STAND INSTRUMENT, 05091 PSYCHOTHERAPY W/PATIENT 45 MINUTES * Follow Up: 1 Week * Billing Information: * Visit Code: * Procedure Codes: 12306 BEHAV ASSMT W/SCORE & DOCD/STAND INSTRUMENT. 78943 PSYCHOTHERAPY W/PATIENT 45 MINUTES. * ROFIT FINANCIAL CONTROLLER Sign off status: Completed Signatures: No Ad Hoc Signature Added true * Provider: Arina Rodrigues Date: 0 12/25/2024 Generated for Matt Edwards/Steven on: 12/30/2024 06:24 PM NONPROFIT FINANCIAL CONTROLLER
--- OUTSIDE RECORDS SUMMARY | 2024-12-30 18:24 | XMS_ITS ---
Author Organization [facility] [employer] Address [address] [facility] [address] [place] [address] Care Team Providers Care Collection Card Clerk Name Role Phone Kassandra De Guzman Primary Care Provider Kaelyn Kiah Stevenson Unavailable [phone] Tiara Rodrigues [phone] Social History Sex Assigned At : Social History Observation Description Sex Assigned At Female Encounters Encounter Location Date Provider Diagnosis [facility] [employer] [facility], Walkin [address] [facility] [address] [place] [address] 12/16/2024 Tiara Rodriguse Plan Of Treatment No Information Progress Notes * Danette THOMAS LDOB: [birth year] (54 yo F)Acc No.[id number]:12/16/2024 Patient: Cory LENZ Danette Erasmo Provider: Arina Rodrigues :1970 A ge:54 Y S ex:Female Date:12/16/2024 Address[address] [facility] Pcp:Kassandra BANEGAS Data: * Chief Complaints: * Assessment: Plan: * Treatment: * Billing Information: * Visit Code: * Procedure Codes: * Electronic signature of Levar Rodrigues LCPC on 12/30/2024 at 06:24 PM MANAGER PROVIDER RELATIONS Sign off status: Pending Signatures: No Ad Hoc Signature Added * Provider: Arina Rodrigues Date: 0 12/16/2024 Generated for Matt smith/Mamie/Beataitting on: 0 12/30/2024 06:24 PM MANAGER PROVIDER RELATIONS
--- OUTSIDE RECORDS SUMMARY | 2024-12-30 18:24 | XMS_ITS | Patient Health Record ---
Author Organization Fabian Noe MD Address [address] [address] Care Team Providers Care Linderman Machine Operator Name Role Phone Fabian Noe Unavailable Reason For Referral No Information Medications Medication SIG (Take, Route, Frequency, Duration) Notes Start Date End Date Status NexIUM 40 MG 1 cap(s) orally once a day Active Triamcinolone Acetonide 0.1 % 1 nelson applied topically 3 times a day for 30 days 10/20/2014 Active Social History Tobacco Use: Social History Observation Description Date Details (start date - stop date) Current Smoker NA - NA Smoking: Question Answer Notes Are you a; current smoker Plan Of Treatment Pending Test Test Name Order Date X ray : Chest with 2 views 11/30/2014 WOUND CULTURE 11/30/2014 WOUND CULTURE 10/26/2014 Insurance Providers Payer Name Payer Address Payer Phone Subscriber Number Group Number Insured Name Patient Relationship to Insured Coverage Start Date Coverage End Date [facility] [address] [address] [place] [address] [id number] Danette Thomas Self - patient is the insured 4 Medical (General) History Medical History History ICD Code Rash Tendinitis NOS Ulcer of skin NOS
--- OUTSIDE RECORDS SUMMARY | 2024-12-30 18:24 | XMS_ITS | Encounter Summary ---
Author Organization [facility] Address [address] [place] [address] Phone Care Team Providers Care Clinical Informatics Spec Name Role Phone Jesus Gonzalez DO Primary Care Provider dOilon Vyas MD Primary Care Provider [phone] Lucho Peralta MD Unavailable Xiomara Carlos MD Primary Care Provider [phone] Odilon Vyas MD Primary Care Provider [phone] Unknown, Notinfile Primary Care Provider Unavail able Kassandra Hooks NP Primary Care Provider + Encounter Details Date Type Department Care Team (Latest Contact Info) Description 08/21/2015 Orders Only [facility] CARDIOLOGY Chasity Borjas, CARMINA [address] 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 Gender Identity Female 06/12/2023 3:27 PM CDT Sexual Orientation Lesbian 06/12/2023 3: 27 PM CDT documented as of this encounter Plan of Treatment Scheduled Procedures Name Priority Associated Diagnoses Date/Ti me COLONOSCOPY Iron deficiency documented as of this encounter Procedures Procedure Name Priority Date/Time Associated Diagnosis Comments CARDIOLOGY DOCUMENT SCAN 08/20/2015 documented in this encounter Results * Cardiology Document Scan (08/20/2015) Anatomical Region Laterality Modality Other us Chasity Borjas RN CV CARDIAC SERVICES P ROCEDURES Edited Result - Final documented in this encounter Visit Diagnoses Not on filedocumented in this encounter Care Teams Clinical Informatics Spec Relationship Specialty Start Date End Date Jesus Gonzalez DO [address] [place] [address] PCP - General Family Medicine 10/26/21 02/07/23 Odilon Vyas MD [address] [place] [address] PCP - General Family Medicine 02/08/23 02/07/24 Xiomara Carlos MD [address] [place] [address] PCP - General Psychiatry 02/08/24 03/23/24 Odilon Vyas MD [address] [place] [address] PCP - General Family Medicine 03/24/24 08/12/24 Unknown, Notinfile PCP - General 08/13/24 08/26/24 Kassandra Hooks NP [address] [place] [address] [place] [address] PCP - General Nurse Practitioner 08/27/24 Lucho Peralta MD [address] [facility] [place] [address] Referring Physician Otolaryngology 12/07/23 documented as of this encounter
--- OUTSIDE RECORDS SUMMARY | 2024-12-30 18:24 | XMS_ITS | Encounter Summary ---
Author Organization [facility] Address [address] [place] [address] Phone Care Team Providers Care Zipper Setter Name Role Phone Lucho Peralta MD Unavailable Kassandra Hooks NP Primary Care Provider + Encounter Details Date Type Department Care Team (Late st Contact Info) Description 12/29/2024 9:30 AM VEHICLE SAFETY INSPECTOR Office Visit [facility] Gastroenterology [address] [place] [address] Corazon Becerra, EDWIGE [address] [place] [address] Crohn's disease of both small and large intestine with other complication (HCC) (Primary Dx); High risk medications (not anticoagulants) long-term use; Malignant neoplasm of appendix (CMS/HCC) (HCC); Pancreas cyst Social History Tobacco Use Types Packs/Day Years [...] on file Legal Sex Female 10:13 AM VEHICLE SAFETY INSPECTOR Gender Identity Female 06/12/2023 3:27 PM CDT Sexual Orientation Lesbian 06/12/2023 3: 27 PM CDT documented as of this encounter Last Filed Vital Signs Vital Sign Reading Time Taken Comments Blood Pressure 102/67 12/29/2024 9:40 AM VEHICLE SAFETY INSPECTOR Pulse 99 12/29/2024 9:40 AM VEHICLE SAFETY INSPECTOR Temperature 36.8 C (98.2 F) 12/29/2024 9:40 AM VEHICLE SAFETY INSPECTOR Respiratory Rate - - Oxygen Saturation 99% 12/29/2024 9:40 AM VEHICLE SAFETY INSPECTOR Inhaled Oxygen Concentration - - Weight 82.9 kg (182 lb 12.8 oz) 12/29/2024 9:40 AM VEHICLE SAFETY INSPECTOR Height 165.1 cm (5' 5 ) 12/29/2024 9:40 AM VEHICLE SAFETY INSPECTOR Body Mass Index 30.42 12/29/2024 9:40 AM VEHICLE SAFETY INSPECTOR documented in this encounter Patient Instructions * Patient Instructions* Corazon Becerra NP - 12/29/2024 9:30 AM VEHICLE SAFETY INSPECTOR Will call to set up MRCP of pancreas and also colonoscopy Labs today CLE SAFETY INSPECTOR documented in this encounter Progress Notes * Corazon Becerra NP - 12/29/2024 9:30 AM CST NAME: Danette Thomas : 1970 DATE: 12/29/2024 Reason for visit: Crohn's disease HPI: Danette Thomas is a 54 y.o. female with a history of small and large bowel Crohn's disease s/p ileocolic resection in 03/2016 on humira q2 weeks and 6-MP, appendiceal carcinoma, factor V Leiden mutation, chronic sinus infection s/p 23 surgeries, multiple CVAs on Eliquis, & Arnold-Chiari malformation s/p surgery, who presents for follow-up of Crohn's disease. She was diagnosed with Crohn's disease of the small and large intestine in 2014. She was initially on pentasa for about 1 year which did not help. She has been on humira since March 2016 and felt significantly better after starting this. She developed a stenosis in 2018, where the scope could not traverse the terminal ileum, prompting an ileocolic resection in 2018 at [facility] where 6 inches o f small bowel were removed. 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 She has also been on 6-MP since 2015. She has been onprednisone since 2013, and has been on a dose of 10mg daily for years. This has been prescribed by her PCP and ENT physician and reportedly, whenever she has tried to taper it, she has had worsened pain in her lower back or in her sinuses. She was found to have diffuse mild colonic wall thickening on a CT on 12/2021 at which time she was treated with an antibiotic with reported improvement of symptoms. Colonoscopy in 2019 prior to establishing with ne looked good though we do not have this record. MRE on 12/08/22 showed wall hyperenhancement of the distal 2cm of ileum, and very small cystic lesions of the pancreas measuring up to 6mm. Established with me on 02/06/23 at which time she was having 6-8 BM's per day with associated urgency. Colonoscopy on 02/2023 by me showed SES-CD of 3 and Rutgeerts i1 at anastomosis, which was widely patent. Referred to endo for taper of long-term prednisone. Also started on colestipol for possible bile acid diarrhea. She had been on chronic steroids. Is seeing endocrinology and has been able to wean down to 2.5 mg.She is having 4 stools daily on average. Some occasional urgency of stool. Denies any hematochezia.Has continued chronic left sided and RUQ pain. States she is back on regular dosing for Humira every 2 weeks. History of low drug level. Patient Active Problem List Diagnosis Date Noted Immunodeficiency ([facility]) 10/17/2024 Chronic obstructive pulmonary disease, unspecified ([facility]) 09/08/2024 Hip pain 02/25/2024 Eustachian tube dysfunction, bilateral 01/01/2024 Chronic sinusitis 01/01/2024 Combined forms of age-related cataract of right eye 12/05/2023 S/P cataract extraction and insertion of intraocular lens, left 11/13/2023 Combined forms of age-related cataract of left eye 10/29/2023 Iron deficiency 10/17/2023 Pain involving joint of finger of left hand 10/09/2023 Cataract of both eyes due to drug 08/09/2023 History of uveitis 08/09/2023 Chiari malformation type I (CMS/HCC) ([facility]) 08/09/2023 Chronic lower back pain 02/06/2023 Pancreas cyst 02/06/2023 Recurrent oral ulcers 02/06/2023 Abdominal pain 03/22/2022 Nausea & vomiting 03/22/2022 Crohn's disease of both small and large intestine with other complication ([facility]) 02/13/2022 Year of Diagnosis: 2014 Year of Symptoms Onset: 2014 Phenotype & Distribution: Small and large bowel stricturing Crohn's disease Previous Treatments: Pentasa (1ary nonresponse) Current Treatment: Humira q2 weeks & 6-MP 50mg daily (both started 03/2016) Therapeutic Drug Monitoring Thiopurine metabolites: N/A ADA/IFX/CZB Levels/Abs: N/A VDZ: N/A UST: N/A Complications: Developed terminal ileal stricture in 2019, scope reportedly could not traverse IC valve Surgeries: ileocolic resection in 2019 at [facility] - 6 inches of small bowel were removed Path incidentally also showed 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 Imaging: CT A/P 12/2021: diffuse mild colonic wall thickening could be related to colitis secondary to inflammation or infection CT A/P 05/2022: no acute findings MRE performed on 12/08/22, which showed wall hyperenhancement of the distal 2cm of ileum, and cysticlesions of the pancreas measuring up to 6mm Endoscopies: Colonoscopy 2019: reportedly looked good per patient, we are requesting records. Right foot pain 02/13/2022 High risk medications (not anticoagulants) long-term use 02/13/2022 History of osteomyelitis 02/13/2022 Altered bowel habits 02/13/2022 Malignant neoplasm of appendix (CMS/HCC) ([facility]) 01/17/2022 Crohn's disease of colon with rectal bleeding (CMS/HCC) ([facility]) 02/18/2019 Last Assessment & Plan: A: - Patient presents with bloody diarrhea with associated N/V x24 hours. - 2/2 to crohn's flare - history of crohn's, on humira though has been out of medication for the past month. - Has been on Amoxicillin for sinusitis and upper respiratory infection. - CT abdomen/pelvis remarkable for thickening of ileum and colon concerning for colitis/enteritis. - LFTS and Lipase within normal limits. Stool studies for viral and bacterial pathogens negative. -Infectious workup negative including c.diff -Elevated CRP with normal ESR -Pt had other episode of large bloody diarrhea today -Talked to her GI group at [facility] Dr Torres on-call, suggested if pt is stable to d/c to be admitted to [facility] work her up further. Talking to the patient she is not feeling well enough to go home, and she requested to be assessed by GI at our facility. P: - Discharge today. To continue prednisone at 40 mg daily for 1 week and decrease to 30 mg daily thefollowing week until patient sees her private GI. - Zofran by mouth as needed for nausea. - Advised patient to follow up with private GI within 1-2 weeks. Per patient she has appointment this upcoming Wednesday 02/28 for EGD and colonoscopy. - Low fiber diet - Per GI recs, continue prednisone 40mg daily. No plan for flex sig as it does not affect management. Recurrent epistaxis 11/10/2016 Past Medical History: Diagnosis Date Abnormal heart rhythm Acid reflux Anemia Anxiety Arnold-Chiari malformation, type I (CMS/HCC) ([facility]) Arthritis Autoimmune disease (CMS/HCC) ([facility]) Brain concussion Bronchitis, chronic (HCC) Cancer of appendix ([facility]) ([facility]) 2019 Cataract Clotting disorder ([facility]) ([facility]) Colitis Crohn's disease ([facility]) ([facility]) CVA (cerebral vascular accident) ([facility]) 08/16/2015 Had a second stroke 08/20/2015. Right sided weakness Depression Epilepsy ([facility]) Factor 5 Leiden mutation, heterozygous ([facility]) GI (gastrointestinal bleed) H/O blood clots portal vein Hyperlipidemia Infection Low back pain Migraines Mixed conductive and sensorineural hearing loss Nausea & vomiting 03/22/2022 Neuromuscular disorder ([facility]) Osteoporosis Peptic ulceration TIA (transient ischemic attack) 2007 Wears dentures Current Outpatient Medications Medication Sig Dispense Refill pymjsueixoekf-qvkubuh-nnuldaer (EXCEDRIN MIGRAINE) 250-250-65 mg per tablet Take 1 tablet by mouth every 6 (six) hours as needed for headaches (Migraine headache) albuterol HFA (PROVENTIL HFA,VENTOLIN HFA,PROAIR HFA) 90 mcg/actuation inhaler Inhale 1-2 puffs every 4 (four) hours as needed for wheezing or shortness of breath ALPRAZolam (XANAX) 0.5 mg tablet Take 0.5 tablets (0.25 mg total) by mouth nightly as needed for anxiety or sleep apixaban (ELIQUIS) 5 mg tablet Take 1 tablet (5 mg total) by mouth 2 (two) times a day aspirin 81 mg enteric coated tablet Take 1 tablet (81 mg total) by mouth with lunch calcium citrate-vitamin D3 (CITRACAL WITH D) 315 mg-6.25 mcg (250 unit) per tablet Take 1 tablet bymouth 2 (two) times a day chlorhexidine (PERIDEX) 0.12 % solution Apply 15 mL to the mouth or throat 2 (two) times a day as needed (Uses right before takes Anat (gets sores in mouth couple days before gets Anat)) ciprofloxacin (CILOXAN) 0.3 % ophthalmic solution dicyclomine (BENTYL) 10 mg capsule Take 2 capsules (20 mg total) by mouth 4 (four) times a day before meals and nightly 90 capsule 3 diphenoxylate-atropine (LOMOTIL) 2.5-0.025 mg per tablet TAKE 1 TABLET BY MOUTH 4 (FOUR) TIMES A DAY NEEDED FOR DIARRHEA 120 tablet 1 ergocalciferol (VITAMIN D) 50,000 unit capsule Take 1 capsule (50,000 Units total) by mouth once a week Take on Sunday esomeprazole DR (NexIUM) 40 mg capsule daily eszopiclone (LUNESTA) 2 mg tablet Take 1 tablet (2 mg total) by mouth nightly fluticasone propionate (FLONASE) 50 mcg/actuation nasal spray Administer 2 sprays into each nostril3 (three) times a day as needed for rhinitis or allergies Left nostril only ( told her to saturate it) Humira Pen 40 mg/0.8 mL pen injector kit Inject 0.8 mL (40 mg total) under the skin every 14 (fourteen) days Sundays 3 each 1 ketorolac (ACULAR) 0.5 % ophthalmic solution mercaptopurine (PURINETHOL) 50 mg tablet TAKE ONE TABLET BY MOUTH DAILY 30 tablet 2 mupirocin (BACTROBAN) 2 % ointment Apply 1 application (deactivated) to each nostril 3 (three) times a day ondansetron ODT (ZOFRAN-ODT) 4 mg disintegrating tablet DISSOLVE ONE TABLET ON TONGUE EVERY 8 HOURSAS NEEDED FOR NAUSEA OR VOMITING 30 tablet 1 oxyCODONE-acetaminophen (PERCOCET) 5-325 mg per tablet Take 1 tablet by mouth every 6 (six) hours as needed for pain pantoprazole DR (PROTONIX) 40 mg EC tablet TAKE ONE TABLET BY MOUTH IN THE MORNING BEFORE [id number] tablet 11 PARoxetine (PAXIL) 40 mg tablet Take 1 tablet (40 mg total) by mouth nightly predniSONE (DELTASONE) 5 mg tablet TAKE ONE TABLET BY MOUTH DAILY 30 tablet 0 rOPINIRole (REQUIP) 1 mg tablet Take 1 tablet (1 mg total) by mouth nightly rosuvastatin (CRESTOR) 40 mg tablet TAKE ONE TABLET BY MOUTH DAILY 30 tablet 0 sucralfate (CARAFATE) 1 gram tablet Take 1 tablet (1 g total) by mouth 3 (three) times a day 90 tablet 1 tiZANidine (ZANAFLEX) 2 mg tablet Take 1 tablet (2 mg total) by mouth every 6 (six) hours as neededfor muscle spasms 120 tablet 0 turmeric root extract 500 mg capsule Take 1,000 mg by mouth with lunch umeclidinium-vilanteroL (ANORO ELLIPTA) 62.5-25 mcg/actuation blister with device Inhale 1 puff daily 1 each 11 UNABLE TO FIND Take 1 each by mouth daily Med Name: beef liver Grassfed supplement cyanocobalamin (Vitamin B-12) 1,000 mcg sublingual tablet Take 1 tablet (1,000 mcg total) by mouth hvac project manager before breakfast No particular days moxifloxacin (VIGAMOX) 0.5 % ophthalmic solution (Patient not taking: Reported on 12/29/2024) SUMAtriptan (IMITREX) 50 mg tablet Take 1 tablet (50 mg total) by mouth once as needed for migraineMay repeat dose once in 2 hours if no relief. Do not exceed 2 doses in 24 hours. (Patient not taking: Reported on 12/29/2024) No current facility-administered medications for this visit. Review of Systems: Constitutional: Negative. HENT: Negative for sore throat and trouble swallowing. Eyes: Negative. Respiratory: Negative. Cardiovascular: Negative. Gastrointestinal: See HPI Endocrine: Negative. Genitourinary: Negative. Musculoskeletal: Negative. Skin: Negative. Allergic/Immunologic: Negative. Neurological: Negative. Hematological: Negative. Psychiatric/Behavioral: Negative. Breast: Negative. Physical Exam: BP 102/67 Pulse 99 Temp 36.8 ??C (98.2 ??F) Ht 165.1 cm (5' 5 ) Wt 82.9 kg (182 lb 12.8 oz) SpO2 99% BMI 30.42 kg/m?? GENERAL: Well-appearing, in no acute distress. HEENT: Sclerae anicteric. Oropharynx without lesion. NECK: Supple without lymphadenopathy or thyromegaly. LUNGS: Clear to auscultation bilaterally, breath sounds symmetrical bilaterally CARDIOVASCULAR: Regular rate and rhythm with no murmur, rub or gallop ABDOMEN: Flat, soft, non-tender; bowel sounds normal active in all four quadrants, no hepatosplenomegaly, or palpable masses RECTAL: deferred EXTREMITIES: No clubbing, cyanosis or edema. SKIN: No rash or jaundice. NEUROLOGIC: Grossly nonfocal on simple observation with normal insight, memory, affect, and orientation Imaging Review none Assessment/Plan: Crohn's disease IC CD hx appendiceal carcinoma. She is on Humira every 2 weeks. Continued chronic abdominal pain. -will repeat colonoscopy -continue cholestipol -continue to follow with endocrinology -continue Humira -will check labs today including Humira level IPMN -repeat MRCP High risk medications: As with all patients taking immunosuppressive biologic therapies or immunomodulators, we provide a balanced discussion on benefits and risks associated with these medications. Regarding potential risks, we employ a strategy of active monitoring for medication related toxicities. Toxicities and risks discussed in monitoring include, but are not limited to the following: infusion reactions including anaphylaxis; bacterial, viral and fungal infections; pancreatitis; heart failure; neurologic reactions; hematologic and solid tumors malignancy including an increased risk of lymphoma and skin cancers; bone marrow toxicity including anemia, lymphopenia and immune suppression; hepatotoxicity and potential renal toxicity. Patients are actively assessed through routine laboratories (Q4 month or more frequently) which I personally review and are encouraged to contact us withany questions regarding new symptom development. No problem-specific Assessment & Plan notes found for this encounter. Follow up: Return in about 8 months (around 08/28/2025). CLE SAFETY INSPECTOR documented in this encounter Plan of Treatment Pending Results Name Type Priority Associated Diagnoses Date /Time T-SPOT.TB Blood Microbiology Routine Crohn's disease of both small and large intestine with other complication (HCC) 12/29/2024 10:27 AM VEHICLE SAFETY INSPECTOR Adalimumab quantitative with reflex to antibody, serum Lab Routine Crohn's disease of both small and large intestine with other complication (HCC) 12/29/2024 10:27 AM VEHICLE SAFETY INSPECTOR Scheduled Orders Name Type Priority Associated Diagnoses Orde r Schedule CRP (acute phase) Lab Routine Crohn's disease of both small and large intestine with other complication (HCC) Expected: 01/01/2025, Expires: 12/29/2025 T-SPOT.TB Blood Microbiology Routine Crohn's disease of both small and large intestine with other complication (HCC) Expected: 12/29/2024, Expires: 12/29/2025 Adalimumab quantitative with reflex to antibody, serum Lab Routine Crohn's disease of both small and large intestine with other complication (HCC) Expected: 12/29/2024, Expires: 12/29/2025 Scheduled Procedures Name Priority Associated Diagnoses Date/Ti me COLONOSCOPY Iron deficiency documented as of this encounter Goals Goal Patient Goal Type Associated Problems Recent Progress Patient-Stated? Author CCM Chronic Pain Care Plan Chronic Care Management Worsening( 8:52 AM CDT) Lashawn Cates, CARMINA Note: Problem: Chronic Pain Goals: 1. Minimize further functional decline 2. Maximize quality of life 3. Control pain Strategies: - Activity/exercise program recommendation - Conservative stepwise pain medicine strategy with multi-disciplinary approach - Recommend healthy lifestyle strategies and compensatory methods as needed documented as of this encounter Results * (ABNORMAL) Vitamin D 25 hydroxy (12/29/2024 10:27 AM VEHICLE SAFETY INSPECTOR) Vitamin D 25-OH 89(H) 30 - 80 ng/mL Blood 12/29/2024 10:2 7 AM VEHICLE SAFETY INSPECTOR 12/29/2024 11:47 AM VEHICLE SAFETY INSPECTOR Corazon Becerra WIRELESS CONSTRUCTION MANAGER LAB BLOOD ORDERABLES Final Result Performing Organization Address [facility] de Phone Number [facility] Department [place] [address] * Vitamin B12 (12/29/2024 10:27 AM VEHICLE SAFETY INSPECTOR) Vitamin B12 524 230 - 1,250 pg/mL Blood 12/29/2024 10:2 7 AM VEHICLE SAFETY INSPECTOR 12/29/2024 11:47 AM VEHICLE SAFETY INSPECTOR Corazon Becerra WIRELESS CONSTRUCTION MANAGER LAB BLOOD ORDERABLES Final Result Performing Organization Address [facility] de Phone Number [facility] Department [place] [address] * CRP (acute phase) (12/29/2024 10:27 AM VEHICLE SAFETY INSPECTOR) CRP 1.0 <=10.0 mg/L Blood 12/29/2024 10:2 7 AM VEHICLE SAFETY INSPECTOR 12/29/2024 11:47 AM VEHICLE SAFETY INSPECTOR Corazon Becerra WIRELESS CONSTRUCTION MANAGER LAB BLOOD ORDERABLES Final Result Performing Organization Address [facility] de Phone Number [facility] Department [place] [address] * (ABNORMAL) CBC with auto differential (12/29/2024 10:27 AM VEHICLE SAFETY INSPECTOR) WBC 6.4 3.8 - 9.9 K/cumm Hgb 13.5 11.9 - 15.5 g/dL [facility] Hct 41.8 35.6 - 45.5 % [facility] Plt 275 150 - 400 K/cumm [facility] MPV 10.3 9.1 - 12.3 fL [facility] RBC 4.33 3.90 - 5.20 M/cumm [facility] MCV 96.5(H) 81.3 - 96.4 fL [facility] MCH 31.2 27.1 - 33.3 pg [facility] MCHC 32.3 32.3 - 35.7 g/dL [facility] RDW CV 14.4 11.1 - 14.9 % [facility] RDW SD 51.3(H) 35.7 - 48.1 fL [facility] NRBC abs 0.00 0.00 - 0.01 K/cumm [facility] Blood 12/29/2024 10:2 7 AM VEHICLE SAFETY INSPECTOR 12/29/2024 11:47 AM VEHICLE SAFETY INSPECTOR Corazon Becerra NP LAB BLOOD ORDERABLES Final Result [facility] [place] [address] documented in this encounter Visit Diagnoses Diagnosis Crohn's disease of both small and large intestine with other complication (HCC)- Primary High risk medications (not anticoagulants) long-term use Encounter for long-term (current) use of other medications Malignant neoplasm of appendix (CMS/HCC) (HCC) Pancreas cyst Cyst and pseudocyst of pancreas documented in this encounter Discontinued Medications Medication Sig Discontinue Reason Start Date End Da te fluconazole (DIFLUCAN) 200 mg tablet Patient Reported 09/16/2024 12/29/2024 linezolid (ZYVOX) 600 mg tablet Patient Reported 09/16/2024 12/29/2024 colestipoL (COLESTID) 1 gram tabletIndications:hyper cholesterolemia Take 2 tablets (2 g total) by mouth hvac project manager before breakfast Take 1 tab once daily for the first two weeks, and if tolerating it well, increase to 1 tab twice daily. Patient Reported 03/14/2023 12/29/2024 hyoscyamine (LEVSIN) 0.125 mg tabletIndications:Urina ry Incontinence Take 2 tablets (0.25 mg total) by mouth every 6 (six) hours as needed for cramping or diarrhea Patient Reported 05/31/2022 12/29/2024 documented as of this encounter Care Teams Zipper Setter Relationship Specialty Start Date End Date Kassandra Hooks NP [address] [facility] [place] [place] [address] PCP - General Nurse Practitioner 08/27/24 Lucho Peralta MD [address] [place] [address] [place] [address] Referring Physician Otolaryngology 12/07/23 documented as of this encounter
--- OUTSIDE RECORDS SUMMARY | 2024-12-30 18:24 | XMS_ITS | Clinical Summary ---
Author Organization [facility] (Formerly [facility]) [facility] Address [address] [address] Care Team Providers Care Matrix Drier Tender Name Role Phone Jesus Gonzalez DO Primary Care Provider [phone] Allergies Active Allergy Reactions Criticality Noted Date Comments Hydrocodone-Acetaminop hen Other (See Comments),Nausea and Vomiting High 05/29/2016 [place] Latex Itching High 08/10/2016 Lidocaine-Transparent Dressing Itching Low 08/10/2016 Sulfa (Sulfonamide Antibiotics) Other (See Comments) Medium 02/18/2019 Rectal bleeding Medications pantoprazole (PROTONIX) 40 mg Tablet, Delayed Release (E.C.) 01/09/2022 Acti ve predniSONE (DELTASONE) 20 mg tablet Take 10 mg by mouth daily. 02/23/2019 Active apixaban (ELIQUIS) 5 mg tablet Take 5 mg by mouth 2 times daily. 07/22/2019 Active Active Problems Problem Noted Date Diagnosed Date Malignant neoplasm of appendix 01/17/2022 Encounters Date Type Department Care Team Description 12/17/2024 External Device Data [facility] ABSTRACTION Provider, Abstract 12/11/2024 External Device Data [facility] ABSTRACTION Provider, Abstract 12/02/2024 External Device Data [facility] ABSTRACTION Provider, Abstract 11/04/2024 External Device Data [facility] ABSTRACTION Provider, Abstract 10/21/2024 External Device Data [facility] ABSTRACTION Provider, Abstract from Last 3 Months Family History Medical History Relation Name Comments Cancer Father Prostate Cancer Father Liver Cancer Mother Relation Name Status Comments Brother 1 Alive Brother 2 Alive Brother 3 Alive Father Mother Sister 1 Alive Sister 2 Alive Sister 3 Alive Son Alive Social History Tobacco Use Types Packs/Day Years Used Date Smoking Tobacco: Former Cigarettes Smokeless Tobacco: Never Alcohol Use Standard Drinks/Week Comments Never 0 (1 standard drink = 0.6 oz pur e alcohol) Comments Unknown Sex and Gender Information Value Date Recorded Sex Assigned at Not on file Legal Sex Female 12:04 PM 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 Gender Identity Not on file Sexual Orientation Not on file Last Filed Vital Signs Vital Sign Reading Time Taken Comments Blood Pressure 114/68 02/24/2022 10:32 AM CDT Pulse 83 02/24/2022 10:32 AM CDT Temperature 36.5 C (97.7 F) 02/24/2022 10:32 AM CDT Respiratory Rate - - Oxygen Saturation 98% 02/24/2022 10: 32 AM CDT Inhaled Oxygen Concentration - - Weight 89.7 kg (197 lb 11.2 oz) 022 10:32 AM CDT Height 165.1 cm (5' 5 ) 02/24/2022 10:3 2 AM CDT Body Mass Index 32.9 02/24/2022 10:32 AM CDT Plan of Treatment Health Maintenance Due Date Last Done Comments Pre-Diabetes and Diabetes Screening 1971 DTAP/TDAP/TD VACCINES (1 - Tdap) 1990 HEPATITIS B VACCINES (1 of 3 - 19+ 3-dose series) 1990 CERVICAL CANCER SCREENING 2001 BREAST CANCER SCREENING 2011 ZOSTER VACCINE (1 of 2) 2021 INFLUENZA VACCINE (#1) 2024 COLORECTAL SCREENING Discontinued 03/14/2023, 03/14/20 23 Colorectal Cancer Screening Discontinued FIT-DNA Q 3 years Discontinued FIT/FOBT Q 1 year Discontinued Flex Sig/CT Colonography Q 5 years Discontinued Insurance PREFERRED Care Teams Matrix Drier Tender Relationship Specialty Start Date End Date Jesus Gonzalez DO [address] [place] [address] PCP - General Family Practice 01/17/22
--- OUTSIDE RECORDS SUMMARY | 2024-12-30 18:24 | XMS_ITS | Encounter Summary ---
Author Organization [facility] Address [address] [place] [address] Phone Care Team Providers Care Fabric Designer Name Role Phone Lucho Peralta MD Unavailable Kassandra Hooks NP Primary Care Provider + Encounter Details Date Type Department Care Team (Late st Contact Info) Description 12/30/2024 Telephone [facility] Gastroenterology [address] [place] [address] [place] [address] Daiana Rodríguez RMA Social History Tobacco Use Types Packs/Day Years [...] on file Legal Sex Female 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 called and LM she stated she would prefer to do the imaging 1st then the procedure. D RECRUITER documented in this encounter Plan of Treatment Scheduled Procedures [...] on filedocumented in this encounter Care Teams Fabric Designer Relationship Specialty Start Date End Date Kassandra Hooks NP [address] [facility] [place] [address] PCP - General Nurse Practitioner 08/27/24 Lucho Peralta MD [address] [facility] [address] Referring Physician Otolaryngology 12/07/23 documented as of this encounter
--- OUTSIDE RECORDS SUMMARY | 2024-12-30 18:24 | XMS_ITS ---
Author Organization [facility] Address [address] [place] [address] Care Team Providers Care Mac Artist Name Role Phone Lucho Peralta MD Unavailable Kassandra Hooks SENIOR ADMINISTRATIVE ASSISTANT Primary Care Provider + Active Problems Problem Noted Date Diagnosed Date Immunodeficiency 10/17/2024 Chronic obstructive pulmonary disease, unspecifi ed 09/08/2024 Hip pain 02/25/2024 Eustachian tube dysfunction, bilateral Chronic sinusitis 01/01/2024 Combined forms of age-related cataract of right eye 12/05/2023 S/P cataract extraction and insertion of intraocular lens, left 11/13/2023 Assessment & Plan (11/13/2023 4:00 PM BELLY DANCER): PO2W cataract extraction (CE)/posterior chamber intraocular lens (PCIOL) The posterior chamber intraocular lens (PCIOL) is in good position, intraocular pressure (IOP) normotensive Continue Pred taper left eye (OS) and Ketorolac QID left eye (OS). Stressed importance of compliance. 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 Refer for cataract extraction (CE) both eyes (OU) History of uveitis 08/09/2023 Assessment & Plan (08/09/2023 11:16 AM CDT): Pt self treats wit pred forte (PF) , stressed importance of being treated with supervision of ECP, need to check intraocular pressure (IOP) and ensure condition is resolved.. Quiet today, monitor Chiari malformation type I (CMS/HCC) 08/09/2023 Assessment & Plan (08/09/2023 11:17 AM CDT): HO craniectomy/laminectomy 2007, fu for optic nerve (ON) oct and Cerna visual field (HVF) Chronic lower back pain 02/06/2023 Assessment & Plan (02/06/2023 12:23 PM CDT): She has longstanding lower back pain. Unclear if this is inflammatory in nature. She does not appear to have any spinal imaging in the system. - Referral to rheumatology Pancreas cyst 02/06/2023 Assessment & Plan (05/15/2023 5:47 PM CDT): MRE on 12/08/22 showed cystic lesions of the pancreas measuring up to 6mm. - She was very concerned about these potentially contributing to her abdominal pain and was reassured that this is not the case. Cysts will need follow-up with an MRI in approximately 1 year (11/2023). She was insistent on seeing biliary in clinic, and we have made this referral. - We will have MRE from [facility] read by our radiologists. Assessment & Plan (02/06/2023 12:22 PM CDT): MRE on 12/08/22 showed cystic lesions of the pancreas measuring up to 6mm. The patient only had an image of the impression of this report, and we do not have access to the report or study itself. - Patient has given authorization to release MRE report from [facility]. We will also obtain the images and have our radiologists read this. If pancreatic cysts have high risk features (solid component, dilated main PD, size >1.5cm), we will refer her to our biliary colleagues. Otherwise, we will plan to repeat MRI/MRCP in 1 year. Recurrent oral ulcers 02/06/2023 Assessment & Plan (02/06/2023 12:39 PM CDT): Likely related to Crohn's disease. She reports that her prior GI physician used to prescribe chlorhexidine which has helped with pain. - Trial of chlorhexidine mouthwash x 2 weeks Abdominal pain 03/22/2022 Assessment & Plan (08/28/2023 2:21 PM CDT): There is likely a component of visceral hypersensitivity to her abdominal pain, which is likely made worse by her severe anxiety/depression (which is clear based on her labile moods/tearfulness during recent endoscopy session and clinic visit). Constipation in s/o tramadol could also be contributing. Other etiologies include abdominal migraines (less likely given that it is chronic and not episodic), mesenteric ischemia (unlikely given no association with food), Crohn's (unlikely given no evidence of obstruction and disease near being in remission), etc. - Paxil recently increased to 40 mg daily, which I suspect will help. She has only been on this dose for a month so will continue to re-evaluate for response. - Have advised she see a psychologist for talk therapy and establish with psychiatrist. - Continue with daily psyllium and minimize tramadol as possible. Assessment & Plan (05/15/2023 5:50 PM CDT): There is likely a component of visceral hypersensitivity to her abdominal pain, which is likely made worse by her severe anxiety/depression (which is clear based on her labile mood and tearfulness during the visit today and during recent endoscopy session. Constipation in s/o tramadol could also be contributing. Other etiologies include abdominal migraines (less likely given that it is chronic and not episodic), mesenteric ischemia (unlikely given no association with food), Crohn's (unlikely given no evidence of obstruction and disease near being in remission), etc. - Paxil remains at a relatively low dose of 20mg daily (recently increased from 10mg). She still has room to uptitrate this and she was advised her to discuss this further with PCP given that she continues to have significant anxiety/depression and would benefit from an increase in dose. - Also advised to see a psychologist for talk therapy. She would greatly benefit from this. She should also see a psychiatrist if possible, and we will defer this referral to her PCP. - There was no etiology to her abdominal pain on recent MRE at [facility]. We will obtain this study and have it read by our radiologists. - Advised to take daily psyllium and cut down on tramadol given that some of her abdominal pain may be related to constipation. Nausea & vomiting 03/22/2022 Assessment & Plan (02/06/2023 12:26 PM CDT): Patient has periodic nausea and vomiting, worst when she first wakes up and feels a watery and salty taste in her mouth. Dr. Enriquez had concern for GERD previously. This is certainly a possibility, but other etiologies such as anastomotic stricture and SIBO are also on the differential. - She is taking nexium after dinner. Advised her to take it 30 minutes prior to breakfast. - GERD diet. Crohn's disease of both smal l and large intestine with other complication 02/13/2022 Overview (02/06/2023): Year of Diagnosis: 2014 Year of Symptoms [...] valve Surgeries: ileocolic resection in 2019 at [facility] - 6 inches of small bowel were [...] of the distal 2cm of ileum, and cystic lesions of the pancreas measuring up to 6mm Endoscopies: Colonoscopy 2019: reportedly looked good per patient, we are requesting records. Assessment & Plan (08/28/2023 2:16 PM CDT): Diagnosed in 2014. Was on pentasa for 1 year with 1ary nonresponse, and has been on Humira q2 weeks + 6-MP 50mg daily since 03/2016. Did have a TI stricture (unclear whether this was inflammatory in nature) in 2018 where the scope could not traverse the IC valve, prompting ileocolic resection ([facility]) - 6 inches resected. 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 She has also been on prednisone 10mg daily since 2013 (managed by PCP and ENT physicians). MRE 12/08/22 with 2cm of distal ileitis. Colonoscopy 02/2023 with SES-CD 3 and Rutgeerts i1 - suspect this is related to mild ischemia at anastomosis rather than active Crohn's disease. - Continue with humira q2 weeks & 6-MP at this time. - Plan to check thiopurine metabolites with next set of labs - We have ordered humira level numerous times but patient has not had this drawn. Discuss again next visit. - Ongoing taper of prednisone (currently at 5 mg daily), which is now being managed by endocrinology. We will prescribe 1 mg tabs so that she does not need to worry about cutting her pills in the future as she tapers. - RTC in 6 months. Assessment & Plan (05/15/2023 5:41 PM CDT): Diagnosed in 2014. Was on pentasa for 1 year with 1ary nonresponse, and has been on Humira q2 weeks + 6-MP 50mg daily since 03/2016. Did have a TI stricture (unclear whether this was inflammatory in nature) in 2019 where the scope could not traverse the IC valve, prompting ileocolic resection ([facility]) - 6 inches resected. 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 She has also been on prednisone 10mg daily since 2013 (managed by PCP and ENT physicians). MRE 12/08/22 with 2cm of distal ileitis. - Recent colonoscopy 02/2023 with SES-CD 3 and Rutgeerts i1 - suspect this is related to mild ischemia at anastomosis rather than active Crohn's disease. Would continue with humira q2 weeks & 6-MP at this time. - We have ordered humira level numerous times but patient has not had this drawn. Will re-order. - She has been on longstanding prednisone 10mg daily for unclear reasons. She was referred to endocrinology for assistance with tapering this given that she has been on it for 8 years. In the interim, she self-tapered this to 2/3 tab per day. Advised to continue with 2/3 tab per day for another month, then go down to 1/2 tab per day until she sees endocrinology. Assessment & Plan (02/06/2023 12:28 PM CDT): Diagnosed in 2014. Was on pentasa for 1 year with 1ary nonresponse, and has been on Humira q2 weeks + 6-MP 50mg daily since 03/2016. Did have a TI stricture (unclear whether this was inflammatory in nature) in 2019 where the scope could not traverse the IC valve, prompting ileocolic resection ([facility]) - 6 inches resected. 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 She has also been on prednisone 10mg daily since 2013 (managed by PCP and ENT physicians). MRE 12/08/22 with 2cm of distal ileitis. - It appears she has short segment inflammation in the distal ileum. She also has periodic significant abdominal pain, nausea/vomiting, and it would be worthwhile to evaluate the anastomosis for inflammation and/or stricture. We will plan for colonoscopy and upper endoscopy for further evaluation. Given history of FVL mutation and CVAs, she will need to be bridged with therapeutic lovenox. Plan will be to hold eliquis x3 days prior to procedures and bridge with lovenox 80mg BID x3 days, holding the lovenox the night prior and morning of the procedures. We will refer her to CPAP prior to endoscopy. - She has been on longstanding prednisone 10mg daily. I am not clear as to what the indication for this is, given that she does not require steroids for Crohn's disease, which appears relatively mild at this time per recent MRE. She reports whenever she has tapered this, having lower back pain and worsening sinus pain. Will defer taper to the prescribing physician and would recommend a very slow taper and likely endocrinology involvement given that she is at risk for adrenal insufficiency. - We will check humira level. As this last dose has been delayed, we will wait to check it prior to the 3rd maintenance dose once she has restarted it. If level is within normal range, we will plan to switch therapies (likely to stelara). - Advised peppermint oil for abdominal pain. - There may be a component of visceral hypersensitivity to her abdominal pain. She is on a very low dose of paxil (10mg daily). Advised her to discuss this further with PCP given that she continues to have significant anxiety/depression and would benefit from an increase in dose. Assessment & Plan (10/23/2022 11:27 AM BELLY DANCER): Diagnosis in 2014. Humira since Mar, 2016. 23 nasal surgeries. -small bowel resection, 2019. 6inches. -Last colonoscopy, 04/2020. -On Humira 2015, Mercaptopurine and Prednisone. -Appendiceal carcinoma, goblet cell carcinoma. -continued abdominal pain, concern for thrombosis? Also follows up with Hematology. CT scan recently done in May and 08/10 with no acute findings. Will order MR enterography for further evaluation. Ordered. Not done by patient yet. -recent blood work from [facility] reviewed. Noted to have urinalysis, CBC, CMP, lipase, lactic acid largely within normal limits. No leukocytosis noted. -Diarrhea, 6-7 BM a day. Stool studies including fecal calprotectin normal. ESR CRP normal. Previously ordered x2. Reordered. Encouraged to do it today. -will do symptomatic treatment with methylcellulose daily. Will give Lomotil to be used on a p.r.n. basis. Refill given. Also recommended to add Imodium 4 times a day to the regimen -she will continue with the current regimen for Crohn's disease at this time. -on chronic anticoagulation secondary to multiple history of cerebrovascular accident and thrombosis in the past. Extremely high risk for colonoscopy given the fact she would need multiple biopsies and would be at extremely high risk for bleeding secondary to her Eliquis. She might need inpatient bridging. Will hold off on colonoscopy at this time given the fact that she appears to be in remission based on the laboratory testing as noted above in terms of her Crohn's disease. Follow up on MR enterography. -abdominal pain, periumbilical, Dexilant not covered by insurance. Carafate not covered by insurance. On Nexium at this time. Reports some improvement. Will continue. -recent CT scan as above, continue with Bentyl and hyoscyamine for pain (chronic abdominal pain) -umbilical, bleeding, recommended not to roughly clean umbilical area as she is on anticoagulants. Concern for fistula? No overt bleeding noted today. MR enterography as above. - Will also give her Bentyl to be used on a p.r.n. basis abdominal pain. Will add hyoscyamine for pain. -nausea, occasional symptom, will continue with Zofran p.r.n.. -symptoms of diarrhea. On Imodium Lomotil for symptom of diarrhea. Also recommended using Benefiber one/2 tbsp to one tbsp every day. Symptoms improved. Will continue. Assessment & Plan (09/25/2022 10:44 AM BELLY DANCER): Diagnosis in 2014. Humira since Mar, 2016. 23 nasal surgeries. -small bowel resection, 2019. 6inches. -Last colonoscopy, 04/2020. -On Humira 2015, Mercaptopurine and Prednisone. -Appendiceal carcinoma, goblet cell carcinoma. -continued abdominal pain, concern for thrombosis? Also follows up with Hematology. CT scan recently done in May and 08/10 with no acute findings. Will order MR enterography for further evaluation. -Diarrhea, 6-7 BM a day. Stool studies including fecal calprotectin normal. ESR CRP normal. Will repeat lab work today. -will do symptomatic treatment with methylcellulose daily. Will give Lomotil to be used on a p.r.n. basis. Refill given. Also recommended to add Imodium 4 times a day to the regimen -she will continue with the current regimen for Crohn's disease at this time. -on chronic anticoagulation secondary to multiple history of cerebrovascular accident and thrombosis in the past. Extremely high risk for colonoscopy given the fact she would need multiple biopsies and would be at extremely high risk for bleeding secondary to her Eliquis. She might need inpatient bridging. Will hold off on colonoscopy at this time given the fact that she appears to be in remission based on the laboratory testing as noted above in terms of her Crohn's disease. Follow up on MR enterography. -abdominal pain, periumbilical, Dexilant not covered by insurance. Carafate not covered by insurance. On Nexium at this time. Reports some improvement. Will continue. -recent CT scan as above, continue with Bentyl and hyoscyamine for pain -umbilical, bleeding, recommended not to roughly clean umbilical area as she is on anticoagulants. Concern for fistula? No overt bleeding noted today. MR enterography as above. - Will also give her Bentyl to be used on a p.r.n. basis abdominal pain. Will add hyoscyamine for pain. -nausea, occasional symptom, will continue with Zofran p.r.n.. -no relief of symptoms with Imodium for diarrhea. Will add Lomotil for symptom of diarrhea. Also recommended using Benefiber one/2 tbsp to one tbsp every day. Symptoms improved. Will continue. Assessment & Plan (07/26/2022 10:46 AM CDT): Diagnosis in 2014. Humira since Mar, 2016. 23 nasal surgeries. -small bowel resection, 2019. 6inches. -Last colonoscopy, 04/2020. -On Humira 2015, Mercaptopurine and Prednisone. -Appendiceal carcinoma, goblet cell carcinoma. -sharp abdominal pain, concern for thrombosis? Also follows up with Hematology. CT scan recently done in May with no acute findings. Recommended referral to ER. However patient does not want to go to the ER. She is scheduled for CT scan tomorrow. Will order it as a stat today. -Diarrhea, 6-7 BM a day. Stool studies including fecal calprotectin normal. ESR CRP normal. Will repeat lab work today. -will do symptomatic treatment with methylcellulose daily. Will give Lomotil to be used on a p.r.n. basis. Refill given. Also recommended to add Imodium 4 times a day to the regimen -she will continue with the current regimen for Crohn's disease at this time. -on chronic anticoagulation secondary to multiple history of cerebrovascular accident and thrombosis in the past. Extremely high risk for colonoscopy given the fact she would need multiple biopsies and would be at extremely high risk for bleeding secondary to her Eliquis. She might need inpatient bridging. Will hold off on colonoscopy at this time given the fact that she appears to be in remission based on the laboratory testing as noted above in terms of her Crohn's disease. Await lab work ordered today -abdominal pain, periumbilical, Dexilant not covered by insurance. Carafate not covered by insurance. On Nexium at this time. Reports some improvement. Will give would good Rx card for Carafate. Refill for carafate given. -recent CT scan as above, continue with Bentyl and hyoscyamine for pain -umbilical, bleeding, recommended not to roughly clean umbilical area as she is on anticoagulants. No overt bleeding noted today. - Will also give her Bentyl to be used on a p.r.n. basis abdominal pain. Will add hyoscyamine for pain. -nausea, occasional symptom, will continue with Zofran p.r.n.. -no relief of symptoms with Imodium for diarrhea. Will add Lomotil for symptom of diarrhea. Also recommended using Benefiber one/2 tbsp to one tbsp every day. Assessment & Plan (05/31/2022 12:23 PM CDT): Diagnosis in 2014. Humira since Mar, 2016. 23 nasal surgeries. -small bowel resection, 2019. 6inches. -Last colonoscopy, 04/2020. -On Humira 2015, Mercaptopurine and Prednisone. -Appendiceal carcinoma, goblet cell carcinoma. -sharp abdominal pain, concern for thrombosis? Also follows up with Hematology. CT scan has been ordered. Recommended referral to ER. However patient does not want to go to the ER. She is scheduled for CT scan tomorrow. Will order it as a stat today. -Diarrhea, 2-5 BM a day. Stool studies including fecal calprotectin normal. ESR CRP normal. -will do symptomatic treatment with methylcellulose daily. Will give Lomotil to be used on a p.r.n. basis. Refill given -she will continue with the current regimen for Crohn's disease at this time. -on chronic anticoagulation secondary to multiple history of cerebrovascular accident and thrombosis in the past. She has not established care with primary care at this time. We will wait on her establishing care with primary care and also Neurology to assess if we could proceed with colonoscopy given the fact she would need multiple biopsies and would be at extremely high risk for bleeding secondary to her Eliquis. She might need inpatient bridging. Will hold off on colonoscopy at this time given the fact that she appears to be in remission based on the laboratory testing as noted above in terms of her Crohn's disease. -abdominal pain, left upper quadrant, Dexilant not covered by insurance. Carafate not covered by insurance. On Nexium at this time. Reports some improvement. Will give would good Rx card for Carafate. Refill for carafate given. - Will also give her Bentyl to be used on a p.r.n. basis abdominal pain. Will add hyoscyamine for pain. -nausea, occasional symptom, will continue with Zofran p.r.n.. -no relief of symptoms with Imodium for diarrhea. Will add Lomotil for symptom of diarrhea. Also recommended using Benefiber one/2 tbsp to one tbsp every day. Assessment & Plan (04/24/2022 12:55 PM CDT): Diagnosis in 2014. Humira since Mar, 2016. 23 nasal surgeries. -small bowel resection, 2019. 6inches. -Last colonoscopy, 04/2020. -On Humira 2015, Mercaptopurine and Prednisone. -Appendiceal carcinoma, goblet cell carcinoma. -Diarrhea, 5-8 BM a day. Stool studies including fecal calprotectin normal. ESR CRP normal. -will do symptomatic treatment with methylcellulose daily. Will give Imodium to be used on a p.r.n. basis. -she does not have insurance at this time. She does not have a job at this time. This presents extremely complicated scenario. 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 Not on any oral antibiotics. -she will continue with the current regimen for Crohn's disease at this time. -on chronic anticoagulation secondary to multiple history of cerebrovascular accident and thrombosis in the past. She has not established care with primary care at this time. We will wait on her establishing care with primary care and also Neurology to assess if we could proceed with colonoscopy given the fact she would need multiple biopsies and would be at extremely high risk for bleeding secondary to her Eliquis. She might need inpatient bridging. Will await Neurology recommendations regarding that. Will hold off on colonoscopy at this time given the fact that she appears to be in remission based on the laboratory testing as noted above in terms of her Crohn's disease. -abdominal pain, left upper quadrant, Dexilant not covered by insurance. Carafate not covered by insurance. On Nexium at this time. Reports some improvement. Will give would good Rx card for Carafate. - Will also give her Bentyl to be used on a p.r.n. basis abdominal pain. -nausea, occasional symptom, will continue with Zofran p.r.n.. -no relief of symptoms with Imodium for diarrhea. Will add Lomotil for symptom of diarrhea. Also recommended using Benefiber one/2 tbsp to one tbsp every day. Assessment & Plan (03/22/2022 1:45 PM CDT): Diagnosis in 2014. Humira since Mar, 2016. 23 nasal surgeries. -small bowel resection, 2019. 6inches. -Last colonoscopy, 04/2020. -On Hum2015, Mercaptopurine and Prednisone. -Appendiceal carcinoma, goblet cell carcinoma. -Diarrhea, 5-8 BM a day. Stool studies including fecal calprotectin normal. ESR CRP normal. -will do symptomatic treatment with methylcellulose daily. Will give Imodium to be used on a p.r.n. basis. -she does not have insurance at this time. She does not have a job at this time. This presents extremely complicated scenario. 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 Not on any oral antibiotics. -she will continue with the current regimen for Crohn's disease at this time. -on chronic anticoagulation secondary to multiple history of cerebrovascular accident and thrombosis in the past. She has not established care with primary care at this time. We will wait on her establishing care with primary care and also Neurology to assess if we could proceed with colonoscopy given the fact she would need multiple biopsies and would be at extremely high risk for bleeding secondary to her Eliquis. She might need inpatient bridging. Will await Neurology recommendations regarding that. Will hold off on colonoscopy at this time given the fact that she appears to be in remission based on the laboratory testing as noted above in terms of her Crohn's disease. -abdominal pain, left upper quadrant, she reports good relief with Dexilant and Carafate. Will do a trial of Dexilant and Carafate. If continues to have problems we can consider upper endoscopy for further evaluation. Will DC Protonix at this time. Will also give her Bentyl to be used on a p.r.n. basis abdominal pain. -nausea, occasional symptom, will continue with Zofran p.r.n.. Assessment & Plan (02/13/2022 1:39 PM CDT): Diagnosis in 2014. Humira since Mar, 2016. 23 nasal surgeries. -small bowel resection, 2019. 6inches. -Last colonoscopy, 04/2020. -On Humira 2015, Mercaptopurine and Prednisone. -Appendiceal carcinoma, goblet cell carcinoma. -Diarrhea, 5-8 BM a day. -will do symptomatic treatment with methylcellulose daily. Will give Imodium to be used on a p.r.n. basis. -she does not have insurance at this time. She does not have a job at this time. This presents extremely complicated scenario. I will do stool studies for her to evaluate for possibility of infection. Will also do fecal calprotectin to assess status of her Crohn's disease. -will also do ESR CRP. Although it is a possibility that she might have chronic elevation of ESR CRP. 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 Not on any oral antibiotics. -she will continue with the current regimen for Crohn's disease at this time. -on chronic anticoagulation secondary to multiple history of cerebrovascular accident and thrombosis in the past. She has not established care with primary care at this time. We will wait on her establishing care with primary care and also Neurology to assess if we could proceed with colonoscopy given the fact she would need multiple biopsies and would be at extremely high risk for bleeding secondary to her Eliquis. She might need inpatient bridging. Will await Neurology recommendations regarding that. Right foot pain 02/13/2022 Assessment & Plan (02/13/2022 1:38 PM CDT): -no obvious lesion noted. History of prior surgery. History of prior osteomyelitis. Reports purulent discharge occasionally. Will obtain x-ray. Recommended to talk to her primary care. High risk medications (not anticoagulants) long- term use 02/13/2022 History of osteomyelitis 02/13/2022 Altered bowel habits 02/13/2022 Assessment & Plan (08/28/2023 2:20 PM CDT): Suspect she has a component of IBS-M given alternating diarrhea & constipation in association with abdominal pain. Crohn's disease not active on recent colonoscopy, so unlikely to be related to this. Also may be a component of bile acid diarrhea, given response to colestipol. - She is doing well with alternating colestipol with 2 tabs on one day, and 3 tabs on the next. This has improved her diarrhea (though still not completely resolved). - Advised to avoid artificial sweeteners (she takes stevia), which can contribute to diarrhea. - Check TSH with next set of labs. Assessment & Plan (02/06/2023 12:09 PM CDT): This may in part be due to Crohn's disease but she has very short segment inflammation (2cm) on MRE, so there may be another contributing factor. One consideration would be bile acid diarrhea in the setting of IC resection. - Trial of colestipol 2gm daily x2 weeks and if tolerating can increase to 2gm BID - Evaluation and management of Crohn's as above Malignant neoplasm of appendix (CMS/[facility]) 022 Crohn's disease of colon with rectal bleeding ([facility]) 02/18/2019 Overview (07/26/2022): Last Assessment & Plan: A: - Patient [...] today -Talked to her GI group at [facility] Dr Torres on-call, suggested if pt is stable to d/c to be [facility] work her up further. Talking to the patient she is not feeling well enough to go home, and she requested to be assessed by GI at our facility. P: - Discharge today. To continue prednisone at 40 mg daily for 1 week and decrease to 30 mg daily the following week until patient sees her private GI. [...] does not affect management. Recurrent epistaxis 11/10/2016 Current Oncology Plans No current plan information found. Other Current Plans Cortrosyn Stimulation test - high dose (250 MCG)* Plan Start Date:08/29/2024 Plan Provider:Lana Carmona DO Linked Problems High risk medications (not a nticoagulants) long-term use Treatment Medications No medications scheduled. Past Plans Radiation Treatments * No radiation treatments are documented for this patient in [facility]. Treatments may have been administered in another system. Lifetime Dose Tracking * Chemical Lifetime Dose Automatic Entry Manual Entr y Fluoro Time 1.312 minutes 1.312 minutes 0 minutes Air kerma at the reference point (Ka,r) 33.48 mGy 3 3.48 mGy 0 mGy DLP 855.4 mGycm 855.4 mGycm 0 mGycm CTDIvol 1.52 mGy 1.52 mGy 0 mGy
--- OUTSIDE RECORDS SUMMARY | 2024-12-30 18:24 | XMS_ITS | Referral Summary ---
Author Organization [facility] Address [address] [place] [id number] Care Team Providers Care Upholstery Instructor Name Role Phone Lucho Peralta MD Unavailable Kassandra Hooks NP Primary Care Provider + Encounters Date Type Department Care Team Description 12/30/2024 Telephone [facility] Gastroenterology [address] [place] [address] 12th [place] [address] [place] [id number] Daiana Rodríguez RMA 12/29/2024 10:20 AM PYTHON PROGRAMMER Lab [facility] [address] [place] [address] [address] [place] [address] Crohn's disease of both small and large intestine with other complication (HCC) 12/29/2024 9:30 AM PYTHON PROGRAMMER Office Visit [facility] Gastroenterology [address] [place] [address] 2nd Floor [address] [place] [address] Corazon Becerra, EDWIGE Crohn's disease of both small and large intestine with other complication (HCC) (Primary Dx); High risk medications (not anticoagulants) long-term use; Malignant neoplasm of appendix (CMS/HCC) (HCC); Pancreas cyst 12/11/2024 Telephone [facility] Gastroenterology [facility] 12th [place] [address] [place] [phone] Anali Melchor 12/05/2024 Telephone [facility] Gastroenterology [address] [place] [address] 12th [place] [address] [place] [address] Daiana Rodríguez, RMA 11/06/2024 Telephone [facility] Gastroenterology [address] [facility] 12th [place] [address] [place] [address] Indu Fortune RN 11/05/2024 Telephone [facility] Gastroenterology [address] [facility] 12th [place] [address] [place] [address] RodríguezDaiana mosley, RMA 10/28/2024 Orders Only [facility] Gastroenterology [address] [facility] 12th [place] [address] [place] [address] RodríguezEtienne mosleyice, RMA 10/15/2024 2:00 PM PYTHON PROGRAMMER Office Visit [facility] [address] [facility] Medical Office Building 4 [address] [place] [phone] Josh Hummel MD Chronic pansinusitis (Primary Dx); Crohn's disease of both small and large intestine with other complication (HCC); Immunodeficiency (HCC) 10/13/2024 Telephone [facility] Pulmonology [address] [facility] [address] [place] [phone] Aylin Reilly 10/13/2024 Telephone [facility] Gastroenterology [facility] [address] [place] [address] [place] [address] Indu Fortune, CARMINA Portal Message Follow Up 10/13/2024 4:19 PM PYTHON PROGRAMMER - 10/13/2024 11:59 PM PYTHON PROGRAMMER Hospital Encounter [facility] [address] [place] [id number] Nicotine dependence, cigarettes, in remission Discharge Disposition: Discharge to home or self care 10/10/2024 Telephone [facility] [address] [place] [address] Tiara Santiago RN 09/30/2024 Telephone [facility] [address] [facility] [address] [place] [address] Massimo Glynn MD PMC Preprocedure from Last 3 Months Allergies Active Allergy Reactions Criticality Noted Date Comments Amoxicillin-Pot Clavulanate Other (See comments) Low 02/06/2023 Makes Crohn's flare up Sulfamethoxazole-Trime thoprim Other (See comments) Low 02/06/2023 Makes Crohn's flare up Hydrocodone-Acetaminop hen Nausea And Vomiting,Other (See comments) High 05/29/2016 [place] Latex Itching High 08/10/2016 Silver Blisters,Other (See comments) High 07/19/2023 Tegaderm dressing- used with PICC line (extermination inspector is when she had reaction) Sulfa Other (See comments) High 06/16/2019 Drugs containing sulfur causes internal bleeding--rectal bleeding Sulfa (Sulfonamide Antibiotics) Other (See comments),Rash High 02/18/2019 Rectal bleeding Rectal bleeding Drugs containing sulfur causes internal bleeding--rectal bleeding Medications albuterol HFA (PROVENTIL HFA,VENTOLIN HFA,PROAIR HFA) 90 mcg/actuation inhalerIndications :Bronchospasm Prevention,Chronic Obstructive Pulmonary Disease Inhale 1-2 puffs every 4 (four) hours as needed for wheezing or shortness of breath 019 Active ALPRAZolam (XANAX) 0.5 mg tabletIndications: anxiety Take 0.5 tablets (0.25 mg total) by mouth nightly as needed for anxiety or sleep 022 Active apixaban (ELIQUIS) 5 mg tabletIndications: atrial fibrillation,Facto r 5 leiden Take 1 tablet (5 mg total) by mouth 2 (two) times a day 019 Active mupirocin (BACTROBAN) 2 % ointmentIndication s:Methicillin-Resi stant S. 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/ MRSA infection in Palate Apply 1 application (deactivated) to each nostril 3 (three) times a day 022 Active ergocalciferol (VITAMIN D) 50,000 unit capsuleIndications :Vitamin D Deficiency Take 1 capsule (50,000 Units total) by mouth once a week Take on Sunday Active dicyclomine (BENTYL) 10 mg capsule Take 2 capsules (20 mg total) by mouth 4 (four) times a day before meals and nightly 90 capsule 3 022 Active sucralfate (CARAFATE) 1 gram tablet Take 1 tablet (1 g total) by mouth 3 (three) times a day 90 tablet 1 022 Active ondansetron ODT (ZOFRAN-ODT) 4 mg disintegrating tablet DISSOLVE ONE TABLET ON TONGUE EVERY 8 HOURS NEEDED FOR NAUSEA OR VOMITING 30 tablet 1 022 Active SUMAtriptan (IMITREX) 50 mg tabletIndications: Migraine Take 1 tablet (50 mg total) by mouth once as needed for migraine May repeat dose once in 2 hours if no relief. Do not exceed 2 doses in 24 hours. Active chlorhexidine (PERIDEX) 0.12 % solutionIndication s:Mouth Infection Prevention Apply 15 mL to the mouth or throat 2 (two) times a day as needed (Uses right before takes Anat (gets sores in mouth couple days before gets Aant)) Active PARoxetine (PAXIL) 40 mg tabletIndications: Generalized Anxiety Disorder,Started in [place] r/t anxiety and nerves/ chronic pain Take 1 tablet (40 mg total) by mouth nightly 023 Active eszopiclone (LUNESTA) 2 mg tabletIndications: Insomnia Take 1 tablet (2 mg total) by mouth nightly 023 Active cyanocobalamin (Vitamin B-12) 1,000 mcg sublingual tabletIndications: Prevention of Vitamin B12 Deficiency Take 1 tablet (1,000 mcg total) by mouth floor layer apprentice before breakfast No particular days Active turmeric root extract 500 mg capsuleIndications :Anti inflammatory/suppl ement Take 1,000 mg by mouth with lunch Active aspirin 81 mg enteric coated tabletIndications: Cerebral Thromboembolism Prevention,history of 3 strokes, a fib, factor 5 Take 1 tablet (81 mg total) by mouth with lunch Active acetaminophen-aspi rin-caffeine (EXCEDRIN MIGRAINE) 250-250-65 mg per tabletIndications: Migraine Take 1 tablet by mouth every 6 (six) hours as needed for headaches (Migraine headache) Active fluticasone propionate (FLONASE) 50 mcg/actuation nasal sprayIndications:M ethicillin-Resista nt S. Aureus Nasal Colonization,Nasal Polyp Administer 2 sprays into each nostril 3 (three) times a day as needed for rhinitis or allergies Left nostril only ( told her to saturate it) Active rOPINIRole (REQUIP) 1 mg tabletIndications: Restless Legs Syndrome Take 1 tablet (1 mg total) by mouth nightly Active Humira Pen 40 mg/0.8 mL pen injector kitIndications:[employer] Learning Support Teacher hn's Disease Inject 0.8 mL (40 mg total) under the skin every 14 (fourteen) days Sundays 3 each Active oxyCODONE-acetamin ophen (PERCOCET) 5-325 mg per tabletIndications: Pain Take 1 tablet by mouth every 6 (six) hours as needed for pain Active calcium citrate-vitamin D3 (CITRACAL WITH D) 315 mg-6.25 mcg (250 unit) per tablet Take 1 tablet by mouth 2 (two) times a day Active mercaptopurine (PURINETHOL) 50 mg tablet TAKE ONE TABLET BY MOUTH DAILY 30 tablet 2 Active tiZANidine (ZANAFLEX) 2 mg tabletIndications: Muscle Spasm Take 1 tablet (2 mg total) by mouth every 6 (six) hours as needed for muscle spasms 120 tablet Active UNABLE TO FIND Take 1 each by mouth daily Med Name: beef liver Grassfed supplement Active umeclidinium-vilan teroL (ANORO ELLIPTA) 62.5-25 mcg/actuation blister with device Inhale 1 puff daily 1 each 11 Active ciprofloxacin (CILOXAN) 0.3 % ophthalmic solution Active esomeprazole DR (NexIUM) 40 mg capsule daily Active ketorolac (ACULAR) 0.5 % ophthalmic solution Active moxifloxacin (VIGAMOX) 0.5 % ophthalmic solution Active diphenoxylate-atro pine (LOMOTIL) 2.5-0.025 mg per tablet TAKE 1 TABLET BY MOUTH 4 (FOUR) TIMES A DAY NEEDED FOR DIARRHEA 120 tablet 1 Active predniSONE (DELTASONE) 5 mg tablet TAKE ONE TABLET BY MOUTH DAILY 30 tablet Active rosuvastatin (CRESTOR) 40 mg tablet TAKE ONE TABLET BY MOUTH DAILY 30 tablet [address] (PROTONIX) 40 mg EC tablet TAKE ONE TABLET BY MOUTH IN THE MORNING BEFORE BREAKFAST 30 tablet 11 025 Active hyoscyamine (LEVSIN) 0.125 mg tabletIndications: Urinary Incontinence Take 2 tablets (0.25 mg total) by mouth every 6 (six) hours as needed for cramping or diarrhea 200 tablet 3 022 2024 Discontinued(P atient Reported) colestipoL (COLESTID) 1 gram tabletIndications: hypercholesterolem ia Take 2 tablets (2 g total) by mouth floor layer apprentice before breakfast Take 1 tab once daily for the first two weeks, and if tolerating it well, increase to 1 tab twice daily. 60 tablet 11 023 2024 Discontinued(P atient Reported) pantoprazole DR (PROTONIX) 40 mg EC tabletIndications: Stress Ulcer Prophylaxis Take 1 tablet (40 mg total) by mouth floor layer apprentice before breakfast 30 tablet 11 024 2024 Discontinued fluconazole (DIFLUCAN) 200 mg tablet 024 2024 Discontinued(P atient Reported) linezolid (ZYVOX) 600 mg tablet 024 2024 Discontinued(P atient Reported) rosuvastatin (CRESTOR) 40 mg tablet TAKE ONE TABLET BY MOUTH DAILY 30 tablet 024 2024 Discontinued Active Problems Problem Noted Date Diagnosed Date Immunodeficiency 10/17/2024 Chronic obstructive pulmonary disease, unspecifi ed 09/08/2024 Hip pain 02/25/2024 Eustachian tube dysfunction, bilateral Chronic sinusitis 01/01/2024 Combined forms of age-related cataract of right eye 12/05/2023 S/P cataract extraction and insertion of intraocular lens, left 11/13/2023 Assessment & Plan (11/13/2023 4:00 PM PYTHON PROGRAMMER): PO2W cataract extraction (CE)/posterior chamber intraocular lens [...] (PSC) cataracts both eyes (OU) secondary to usp prednisone usage +1D otc readers for distance [...] referral. - We will have MRE from [facility] read by our radiologists. Assessment & Plan (02/06/2023 12:22 PM CDT): MRE on 12/08/22 showed cystic lesions of the pancreas measuring up to 6mm. The patient only had an image of the impression of this report, and we do not have access to the report or study itself. - Patient has given authorization to release MRE report from [facility]. We will also obtain the [...] her abdominal pain on recent MRE at [facility]. We will obtain this study [...] valve Surgeries: ileocolic resection in 2019 at [facility] - 6 inches of small bowel [...] traverse the IC valve, prompting ileocolic resection ([facility]) - 6 [address] Path incidentally showed [...] traverse the IC valve, prompting ileocolic resection ([facility]) - 6 inches resected. Path incidentally showed [...] traverse the IC valve, prompting ileocolic resection ([facility]) - 6 inches resected. Path incidentally showed [...] dose. Assessment & Plan (10/23/2022 11:27 AM PYTHON PROGRAMMER): Diagnosis in 2014. Humira since Mar, 2016. [...] by patient yet. -recent blood work from [facility] reviewed. Noted to have urinalysis, CBC, CMP, [...] continue. Assessment & Plan (09/25/2022 10:44 AM PYTHON PROGRAMMER): Diagnosis in 2014. Humira since Mar, 2016. [...] Plan (07/26/2022 10:46 AM CDT): Diagnosis in 2015. Humira since Mar, 2016. 23 nasal surgeries. [...] Crohn's as above Malignant neoplasm of appendix ([facility]) 022 Crohn's disease of colon with rectal bleeding ([facility]) 02/18/2019 Overview (07/26/2022): Last Assessment & Plan: [...] today -Talked to her GI group at [facility] Dr Torres on-call, suggested if pt is stable to d/c to be admitted to [facility] work her up further. Talking to the [...] does not affect management. Recurrent epistaxis 11/10/2016 Social History Tobacco Use Types Packs/Day Years Used Date Smoking Tobacco: Former Cigarettes 2 20 0 11/19/1994 - 2014 Passive Smoke Exposure: Past Smokeless Tobacco: Never Tobacco Cessation:Counseling Given: Not Answered Comments:Glad I quit Passive Exposure Comments:Dad smoked [...] on file Legal Sex Female 10:13 AM PYTHON PROGRAMMER Gender Identity Female 06/12/2023 3:27 PM CDT Sexual Orientation Lesbian 06/12/2023 3: 27 PM CDT Last Filed Vital Signs Vital Sign Reading Time Taken Comments Blood Pressure 102/67 12/29/2024 9:40 AM PYTHON PROGRAMMER Pulse 99 12/29/2024 9:40 AM PYTHON PROGRAMMER Temperature 36.8 C (98.2 F) 12/29/2024 9:40 AM PYTHON PROGRAMMER Respiratory Rate 12 09/18/2024 8:51 AM CDT Oxygen Saturation 99% 12/29/2024 9:40 AM PYTHON PROGRAMMER Inhaled Oxygen Concentration - - Weight 82.9 kg (182 lb 12.8 oz) 12/29/2024 9:40 AM PYTHON PROGRAMMER Height 165.1 cm (5' 5 ) 12/29/2024 9:40 AM PYTHON PROGRAMMER Body Mass Index 30.42 12/29/2024 9:40 AM PYTHON PROGRAMMER Plan of Treatment Scheduled Procedures Name Priority Associated Diagnoses Date/Ti me COLONOSCOPY Iron deficiency Goals Goal Patient Goal Type Associated Problems [...] lifestyle strategies and compensatory methods as needed Medical Devices Implanted Type Area Er Tech Device Identifier Shelf Expiration Date Model / Serial / Lot [employer] Lens Iol Cna0t0.230 [employer] Cna0t0.230 - [id number] - [id number] Implanted:Qty: 1 on 10/29/2023 by Melvin San MD at [facility] Left: Eye [employer] [id number] 06/25/2026 CNA0T0.23 0 / [id number] / Procedures Procedure Name Priority Date/Time Associated Diagnosis Comments DIFFERENTIAL AUTO Routine 12/29/2024 10: 27 AM PYTHON PROGRAMMER Crohn's disease of both small and large intestine with other complication (HCC) CBC WITH AUTO DIFFERENTIAL Routine 12/29/2024 10:27 AM PYTHON PROGRAMMER Crohn's disease of both small and large intestine with other complication (HCC) CRP (ACUTE PHASE) Routine 12/29/2024 10: 27 AM PYTHON PROGRAMMER Crohn's disease of both small and large intestine with other complication (HCC) VITAMIN B12 Routine 12/29/2024 10:27 AM PYTHON PROGRAMMER Crohn's disease of both small and large intestine with other complication (HCC) VITAMIN D 25 HYDROXY Routine 12/29/2024 10:27 AM PYTHON PROGRAMMER Crohn's disease of both small and large intestine with other complication (HCC) CT LUNG CANCER SCREENING Schedule Routine, Read Routine (OP Routine) 10/13/2024 4:36 PM PYTHON PROGRAMMER Nicotine dependence, cigarettes, in remission COLONOSCOPY 03/14/2023 11:16 AM CDT from Last 3 Months or Most Recently Relevant to Health Maintenance Results * Differential, auto (12/29/2024 10:27 AM PYTHON PROGRAMMER) Neutrophil abs 4.1 1.5 - 6.5 K/cumm Imm gran abs 0.0 0.0 - 0.1 K/cumm [facility] Lymphocyte abs 1.5 0.8 - 3.3 K/cumm [facility] Monocyte abs 0.5 0.2 - 0.8 K/cumm [facility] Eosinophil abs 0.2 0.0 - 0.5 K/cumm [facility] Basophil abs 0.1 0.0 - 0.1 K/cumm [facility] Neutrophil pct 64.4 % [facility] Comment: Interpretive Data Percent cell count reference ranges are not reported, since discordance with absolute values may lead to misinterpretation of CBC data. Current Interpretive Data was last revised on 2018. Imm gran pct 0.5 % [facility] Comment: Interpretive Data Percent cell count reference ranges are not reported, since discordance with absolute values may lead to misinterpretation of CBC data. Current Interpretive Data was last revised on 2018. Lymphocyte pct 23.6 % [facility] Comment: Interpretive Data Percent cell count reference ranges are not reported, since discordance with absolute values may lead to misinterpretation of CBC data. Current Interpretive Data was last revised on 2018. Monocyte pct 7.6 % [facility] Comment: Interpretive Data Percent cell count reference ranges are not reported, since discordance with absolute values may lead to misinterpretation of CBC data. Current Interpretive Data was last revised on 2018. Eosinophil pct 3.0 % [facility] Comment: Interpretive Data Percent cell count reference ranges are not reported, since discordance with absolute values may lead to misinterpretation of CBC data. Current Interpretive Data was last revised on 2018. Basophil pct 0.9 % [facility] Comment: Interpretive Data Percent cell count reference ranges are not reported, since discordance with absolute values may lead to misinterpretation of CBC data. Current Interpretive Data was last revised on 2018. Blood 12/29/2024 10:2 7 AM PYTHON PROGRAMMER 12/29/2024 11:47 AM PYTHON PROGRAMMER Corazon Becerra NP LAB BLOOD ORDERABLES Final Result [facility] [place] [address] * (ABNORMAL) CBC with auto differential (12/29/2024 10:27 AM PYTHON PROGRAMMER) WBC 6.4 3.8 - 9.9 K/cumm Hgb 13.5 11.9 - 15.5 g/dL [facility] Hct 41.8 35.6 - 45.5 % [facility] Plt 275 150 - 400 K/cumm [facility] MPV 10.3 9.1 - 12.3 fL [facility] RBC 4.33 3.90 - 5.20 M/cumm [facility] MCV 96.5(H) 81.3 - 96.4 fL [facility] MCH 31.2 27.1 - 33.3 pg [facility] MCHC 32.3 32.3 - 35.7 g/dL [facility] RDW CV 14.4 11.1 - 14.9 % [facility] RDW SD 51.3(H) 35.7 - 48.1 fL [facility] NRBC abs 0.00 0.00 - 0.01 K/cumm [facility] Blood 12/29/2024 10:2 7 AM PYTHON PROGRAMMER 12/29/2024 11:47 AM PYTHON PROGRAMMER Corazon Becerra PRECONSTRUCTION MANAGER LAB BLOOD ORDERABLES Final Result Performing Organization Address [facility] Co de Phone Number [facility] Department [place] [address] * (ABNORMAL) Vitamin D 25 hydroxy (12/29/2024 10:27 AM PYTHON PROGRAMMER) Vitamin D 25-OH 89(H) 30 - 80 ng/mL Blood 12/29/2024 10:2 7 AM PYTHON PROGRAMMER 12/29/2024 11:47 AM PYTHON PROGRAMMER Corazon Becerra PRECONSTRUCTION MANAGER LAB BLOOD ORDERABLES Final Result Performing Organization Address [facility] Co de Phone Number [facility] Department [place] [address] * CRP (acute phase) (12/29/2024 10:27 AM PYTHON PROGRAMMER) CRP 1.0 <=10.0 mg/L Blood 12/29/2024 10:2 7 AM PYTHON PROGRAMMER 12/29/2024 11:47 AM PYTHON PROGRAMMER Corazon Becerra PRECONSTRUCTION MANAGER LAB BLOOD ORDERABLES Final Result Performing Organization Address [facility] Co de Phone Number [facility] Department [place] [address] * Vitamin B12 (12/29/2024 10:27 AM PYTHON PROGRAMMER) Vitamin B12 524 230 - 1,250 pg/mL Blood 12/29/2024 10:2 7 AM PYTHON PROGRAMMER 12/29/2024 11:47 AM PYTHON PROGRAMMER Corazon Becerra NP LAB BLOOD ORDERABLES Final Result [facility] [place] [address] * CT Lung Cancer Screening (10/13/2024 4:36 PM PYTHON PROGRAMMER) Anatomical Region Laterality Modality Chest N/A Computed Tomogra phy 10/17/2024 8:06 AM PYTHON PROGRAMMER Narrative 10/17/2024 8:07 AM PYTHON PROGRAMMER EXAM DESCRIPTION: CT LUNG CANCER SCREENING REASON FOR STUDY: Screening CT of the chest in a former smoker with a 40 pack year smoking history. Additional history: None. TECHNIQUE: Low dose CT scan of the chest was performed without intravenous contrast using helical scanning technique. The exam extends from the lung apices through the lung bases. Automatic exposure control was used as a dose optimization technique. NOTE: This study was performed for the specific purposes of lung cancer screening and is not an alternative to diagnostic chest CT. RADIATION DOSE: CT dose index volume (CTDIvol) = 1.57 mGy COMPARISON: 09/20/2023 FINDINGS: SMOKING RELATED LUNG DISEASE: Mild emphysema. Mild bronchial wall thickening. Mild bronchiectasis. LUNG NODULES: No suspicious lung nodules. CORONARY ARTERY CALCIFICATION: Mild coronary artery calcification. OTHER: Central airways patent. No focal consolidation. No pleural effusions. Normal heart size. No pericardial effusion. IMPRESSION: Evidence of mild smoking related lung disease. No suspicious pulmonary nodules. Lung-RADS category 2: Benign appearance or behavior. Recommendation: Low dose Screening CT of chest in 12 months. THIS IS AN ELECTRONICALLY VERIFIED FINAL REPORT 10/17/2024 8:07 AM - Electronically signed by David Diana Ortiz M.D. SN: Report ID: [id number] Reading Location: [id number] Procedure Note David Ortiz MD - 10/17/2024 EXAM DESCRIPTION: CT LUNG CANCER SCREENING REASON FOR STUDY: Screening CT of the chest in a former smoker with a40 pack year smoking history. Additional history: None. TECHNIQUE: Low dose CT scan of the chest was performed without intravenous contrast using helical scanning technique. The exam extends from the lung apices through the lung bases. Automatic exposure control was used as adose optimization technique. NOTE: This study was performed for the specific purposes of lung cancer screening and is not an alternative to diagnostic chest CT. RADIATION DOSE: CT dose index volume (CTDIvol) = 1.57 mGy COMPARISON: 09/20/2023 FINDINGS: SMOKING RELATED LUNG DISEASE: Mild emphysema. Mild bronchial wall thickening. Mild bronchiectasis. LUNG NODULES: No suspicious lung nodules. CORONARY ARTERY CALCIFICATION: Mild coronary artery calcification. OTHER: Central airways patent. No focal consolidation. No pleural effusions. Normal heart size. No pericardial effusion. IMPRESSION: Evidence of mild smoking related lung disease. No suspicious pulmonary nodules. Lung-RADS category 2: Benign appearance or behavior. Recommendation: Low dose Screening CT of chest in 12 months. THIS IS AN ELECTRONICALLY VERIFIED FINAL REPORT 10/17/2024 8:07 AM - Electronically signed by David Ortiz M.D. SN: Report ID: [id number] Reading Location: [id number] Zia Hearn DO IMG CT PROCEDURES Final R esult * COLONOSCOPY (03/14/2023 11:16 AM CDT) Anatomical Region Laterality Modality Other Narrative Procedure Note Montrell Kern MD - 03/14/2023 11:16 AM CDT ENDOSCOPY LAB Patient Name: Danette Thomas Procedure Date: 03/14/2023 11:16 AM Date of : 1970 Admit Type: Outpatient Age: 52 Gender: Female Attending MD: Montrell Kern M.D. Room: [facility] ENDOSCOPY ROOM 05 Note Status: Finalized Procedure: Colonoscopy Indications: Disease activity assessment of Crohn's disease ofthe small bowel and colon Providers: Montrell Kern M.D. Referring MD: Montrell Kern M.D. Medicines: See the Anesthesia note for documentation of the administered medications Complications: No immediate complications. Estimated Blood Loss: Estimated blood loss was minimal. Procedure: Pre-Anesthesia Assessment: - After reviewing the risks and benefits, thepatient was deemed in satisfactory condition to undergo the procedure. The benefits, risks and alternatives of theprocedure and sedation were discussed and informed consentwas obtained. All questions were answered. Please referto the signed informed consent document in the medical record. The scope was passed under direct vision.The [id number] was introduced through the anusand advanced to the terminal ileum. The colonoscopy was performed without difficulty. The patient tolerated the procedure well. The quality of the bowel preparation was poor. The terminal ileum was photographed. Findings: The perianal and digital rectal examinations were normal. Functional end-to-end Ileo-colic anastomosis characterized by mild inflammation and 5 small apthous ulcers in the area of theanastomosis. Biopsies taken directly from the anastomosis and also from the area around it (jar label right colon ). This is characterized as Rutgeerts i1 The Simple Endoscopic Score for Crohn's Disease was determined basedon the endoscopic appearance of the mucosa in the following segments: - Ileum: Findings include no ulcers present, no ulcerated surfaces,no affected surfaces, no narrowings and no ulcers present, no ulcerated surfaces, no affected surfaces and no narrowings. Segment score: 0. - Right Colon: Findings include aphthous ulcers less than 0.5 cm in size, less than 10% ulcerated surfaces, less than 50% of surfaces affected and no narrowings. Segment score: 3. - Transverse Colon: Findings include no ulcers present, no ulcerated surfaces, no affected surfaces and no narrowings. Segment score: 0. - Left Colon: Findings include no ulcers present, no ulceratedsurfaces, no affected surfaces and no narrowings. Segment score: 0. - Rectum: Findings include no ulcers present, no ulcerated surfaces,no affected surfaces and no narrowings. Segment score: 0. - Total SES-CD aggregate score: 3. Biopsies were taken with a cold forceps for histology. Internal hemorrhoids were found during retroflexion. The hemorrhoids were mild and Grade I (internal hemorrhoids that do not prolapse). Impression: - Preparation of the colon was poor. - Simple Endoscopic Score for Crohn's Disease: 3, mucosal inflammatory changes. Biopsied. 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 This was characterized mild inflammation at anastomosis,which was patent and easily traversed by the PCF scope. 5 apthous ulcers seen in the viscinity ofanastomosis. - Internal hemorrhoids. Recommendation: - Discharge patient to home (ambulatory). - Resume previous diet. - Overall the degree of inflammation she has ismild and focused around the anastomosis, which is not necessarily indicative of active CD. We will await biopsy results for further information. - Continue with humira and 6-MP at this time. - Obtain humira level as previously planned. - Resume anticoagulation tomorrow. - Follow-up with me in clinic. - Continue with colestipol for possible bile acid diarrhea. - Continue present medications. - Await pathology results. - Repeat colonoscopy in 2 years for surveillance. Electronically signed by Montrell Kern MD Montrell Kern M.D. 03/14/2023 11:42:37 AM Number of Addenda: 0 Note Initiated On: 03/14/2023 11:16 AM Montrell Kern MD ENDOSCOPY PROCEDURES Final Resul t from Last 3 Months or Most Recently Relevant to Health Maintenance [place] [employer] Advance Directives For more information, please contact: [phone] * Full Code (Latest Code Status on File) Date Activated Date Inactivated Comments 03/14/2023 9:25 AM 03/14/2023 4:21 PM Care Teams Upholstery Instructor Relationship Specialty Start Date End Date Kassandra Hooks NP [address] [facility] [place] [address] PCP - General Nurse Practitioner 08/27/24 Lucho Peralta MD [address] [place] [address] Referring Physician Otolaryngology 12/07/23
--- OUTSIDE RECORDS SUMMARY | 2024-12-30 18:24 | XMS_ITS | Clinical Summary ---
Author Organization [facility] Address [address] [place] [address] Care Team Providers Care Pipe Organ Builder Name Role Phone Lucho Peralta MD Unavailable Kassandra Hooks NP Primary Care Provider + Allergies Active Allergy Reactions Criticality Noted Date Comments Amoxicillin-Pot Clavulanate Other (See comments) Low 02/06/2023 Makes Crohn's flare up Sulfamethoxazole-Trime thoprim Other (See comments) Low 02/06/2023 Makes Crohn's flare up Hydrocodone-Acetaminop hen Nausea And Vomiting,Other (See comments) High 05/29/2016 [place] Latex Itching High 08/10/2016 Silver Blisters,Other (See comments) High 07/19/2023 Tegaderm dressing- used with PICC line (termite helper is when she had reaction) Sulfa Other [...] in mouth couple days before gets Anat)) Active PARoxetine (PAXIL) 40 mg tabletIndications: Generalized Anxiety Disorder,Started in [place] r/t anxiety and nerves/ chronic pain Take 1 tablet (40 mg total) by mouth nightly 023 Active eszopiclone (LUNESTA) 2 mg tabletIndications: Insomnia Take 1 tablet (2 mg total) by mouth nightly 023 Active cyanocobalamin (Vitamin B-12) 1,000 mcg sublingual tabletIndications: Prevention of Vitamin B12 Deficiency Take 1 tablet (1,000 mcg total) by mouth weigher production before breakfast No particular days Active turmeric [...] for rhinitis or allergies Left nostril only (Dr told her to saturate it) Active rOPINIRole (REQUIP) 1 mg tabletIndications: Restless Legs Syndrome Take 1 tablet (1 mg total) by mouth nightly 024 Active Humira Pen 40 mg/0.8 mL pen injector kitIndications:Human Resources Records Clerk hn's Disease Inject 0.8 mL (40 mg total) under the skin every 14 (fourteen) days Sundays 3 each 1 024 Active oxyCODONE-acetamin ophen (PERCOCET) 5-325 mg per tabletIndications: Pain Take 1 tablet by mouth every 6 (six) hours as needed for pain 024 Active calcium citrate-vitamin D3 (CITRACAL WITH D) 315 mg-6.25 mcg (250 unit) per tablet Take 1 tablet by mouth 2 (two) times a day Active mercaptopurine (PURINETHOL) 50 mg tablet TAKE ONE TABLET BY MOUTH DAILY 30 tablet 2 024 Active tiZANidine (ZANAFLEX) 2 mg tabletIndications: Muscle Spasm Take 1 tablet (2 mg total) by mouth every 6 (six) hours as needed for muscle spasms 120 tablet 024 Active UNABLE TO FIND Take 1 each [...] TABLET BY MOUTH DAILY [address] (PROTONIX) 40 mg EC tablet TAKE ONE TABLET BY MOUTH IN THE MORNING BEFORE BREAKFAST 30 tablet 11 Active hyoscyamine (LEVSIN) 0.125 mg tabletIndications: Urinary Incontinence Take 2 tablets (0.25 mg total) by mouth every 6 (six) hours as needed for cramping or diarrhea 200 tablet 3 022 2024 Discontinued(P atient Reported) colestipoL (COLESTID) 1 gram tabletIndications: hypercholesterolem ia Take 2 tablets (2 g total) by mouth weigher production before breakfast Take 1 tab once daily for the first two weeks, and if tolerating it well, increase to 1 tab twice daily. 60 tablet 11 023 2024 Discontinued(P atient Reported) pantoprazole DR (PROTONIX) 40 mg EC tabletIndications: Stress Ulcer Prophylaxis Take 1 tablet (40 mg total) by mouth weigher production before breakfast 30 tablet 11 024 2024 Discontinued fluconazole (DIFLUCAN) 200 mg tablet 024 2024 Discontinued(P atient Reported) linezolid (ZYVOX) 600 mg tablet 2024 Discontinued(P atient Reported) rosuvastatin (CRESTOR) 40 [...] 11/13/2023 Assessment & Plan (11/13/2023 4:00 PM LEG MAN): PO2W cataract extraction (CE)/posterior chamber intraocular lens [...] (PSC) cataracts both eyes (OU) secondary to termite helper prednisone usage +1D otc readers for distance [...] referral. - We will have MRE from [facility] read by our radiologists. Assessment & Plan (02/06/2023 12:22 PM CDT): MRE on 12/08/22 showed cystic lesions of the pancreas measuring up to 6mm. The patient only had an image of the impression of this report, and we do not have access to the report or study itself. - Patient has given authorization to release MRE report from [facility]. We will also obtain the images and [...] her abdominal pain on recent MRE at [facility]. We will obtain this study and have [...] Surgeries: ileocolic resection in 2019 at [facility] - 6 inches of small bowel [...] traverse the IC valve, prompting ileocolic resection ([facility]) - [address] incidentally [...] traverse the IC valve, prompting ileocolic resection ([facility]) - [address] Path incidentally [...] traverse the IC valve, prompting ileocolic resection ([facility]) - 6 inches resected. Path incidentally [...] dose. Assessment & Plan (10/23/2022 11:27 AM LEG MAN): Diagnosis in 2014. Humira since Mar, 2016. [...] by patient yet. -recent blood work from [facility] reviewed. Noted to have urinalysis, CBC, CMP, [...] continue. Assessment & Plan (09/25/2022 10:44 AM LEG MAN): Diagnosis in 2014. Humira since Mar, 2016. [...] resection, 2019. 6inches. -Last colonoscopy, 04/2020. -On 2015, Mercaptopurine and Prednisone. -Appendiceal carcinoma, goblet [...] Plan (03/22/2022 1:45 PM CDT): Diagnosis in 2015. Humira since Mar, 2016. 23 nasal surgeries. -small bowel resection, 2019. 6inches. -Last colonoscopy, 04/2020. -On 2015, Mercaptopurine and Prednisone. -Appendiceal carcinoma, goblet [...] resection, 2019. 6inches. -Last colonoscopy, 04/2020. -On 2015, Mercaptopurine and Prednisone. -Appendiceal carcinoma, goblet [...] Crohn's as above Malignant neoplasm of appendix (CMS/HCC) 022 Crohn's disease of colon with rectal bleeding (C MS/HCC) 02/18/2019 Overview (07/26/2022): Last Assessment & Plan: A: - Patient presents with bloody diarrhea with associated N/V x24 hours. - 2/ to crohn's flare - history of crohn's, [...] today -Talked to her GI group at [facility] Dr Torres on-call, suggested if pt is stable to d/c to be admitted to [facility] work her up further. Talking to the [...] does not affect management. Recurrent epistaxis 11/10/2016 Encounters Date Type Department Care Team Description 12/30/2024 Telephone [facility] Gastroenterology [address]th [place] [address] [place] [address] Etienne Rodríguezice, RMA 12/29/2024 10:20 AM LEG MAN Lab [facility] [address] [place] [address] [address] [place] [address] Crohn's disease of both small and large intestine with other complication (HCC) 12/29/2024 9:30 AM LEG MAN Office Visit [facility] Gastroenterology [address] [address] 2nd [address] [place] [address] Corazon Becerra NP Crohn's disease of both small and large intestine with other complication (HCC) (Primary Dx); High risk medications (not anticoagulants) long-term use; Malignant neoplasm of appendix (CMS/HCC) (HCC); Pancreas cyst 12/11/2024 Telephone [facility] Gastroenterology [address] [place] [address] [place] [address] [place] [address] Anali Melchor 12/05/2024 Telephone [facility] Gastroenterology [address] [place] [address] [place] [address] [place] [address] RodríguezDaiana mosley, RMA 11/06/2024 Telephone [facility] Gastroenterology [address] [place] [address] [place] [address] [place] [address] Indu Fortune RN 11/05/2024 Telephone [facility] Gastroenterology [address] [place] [address] [place] [address] [place] [address] RodríguezEtienne mosleyice, RMA 10/28/2024 Orders Only [facility] Gastroenterology [address] [place] [address] [place] [address] [place] [address] RodríguezDaiana mosley, RMA 10/15/2024 2:00 PM LEG MAN Office Visit [facility] [address] [facility] [address] [place] [address] Josh Hummel MD Chronic pansinusitis (Primary Dx); Crohn's disease of both small and large intestine with other complication (HCC); Immunodeficiency (HCC) 10/13/2024 4:19 PM LEG MAN - 10/13/2024 11:59 PM LEG MAN Hospital Encounter [facility] [address] [place] [address] Nicotine dependence, cigarettes, in remission Discharge Disposition: Discharge to home or self care 10/13/2024 Telephone [facility] Pulmonology [address] [place] [phone] Aylin Reilly 10/13/2024 Telephone [facility] Gastroenterology [address]th [place] [address] [place] [address] Indu Fortune, CARMINA Portal Message Follow Up 10/10/2024 Telephone [facility] [address] [place] [address] Tiara Santiago RN 09/30/2024 Telephone [facility] [address] [place] [address] Massimo Glynn MD [facility] Preprocedure from Last 3 Months Surgical History Surgery Date Site/Laterality Comments COLONOSCOPY 05/11/2020 [place] SINUS SURGERY 09/28/2016 Successful embolization of left sphenopalatine artery (16 nasal surgeries in past ) AMPUTATION FOOT / TOE 11/19/2013 - 11/18/2014 Right Partial great toe removed, partial 2nd toe removed. AMPUTATION FINGER / THUMB 11/19/2014 - 11/18/2015 Partial right index finger. Left ring finger will not open all the way, pinky finger on left hand will not close all the way. LAPAROSCOPIC COLON RESECTION 06/17/2019 Ileocolic w/appendectomy CRANIECTOMY SUBOCCIPITAL W/ CERVICAL LAMINECTOMY / CHIARI 07/30/2008 APPENDECTOMY 11/19/2018 - 11/18/2019 COLONOSCOPY W/ BIOPSIES 03/14/2023 FINGER SURGERY 11/19/2022 - 11/18/2023 Left ring finger has had multiple surgeries SHOULDER ARTHROSCOPY 11/19/2001 - 11/18/2002 Right EAR SURGERY 12/20/2007 - 01/17/2008 Right INTRACRANIAL ANEURYSM REPAIR 11/10/2016 FINGER AMPUTATION 11/08/2023 Left CATARACT EXTRACTION 10/29/2023 Left FLUORO GUIDED INJECTION HIP RIGHT 02/25/2024 Right SMALL INTESTINE SURGERY ABDOMINAL SURGERY Medical History Medical History Date Comments Crohn's disease (CMS/HCC) ([facility]) Cancer of appendix (CMS/HCC) ([facility]) 2019 Factor 5 Leiden mutation, he terozygous ([facility]) Arnold-Chiari malformation, type I (CMS/HCC) ([facility]) CVA (cerebral vascular accident) ([facility]) 5 Had a second stroke 08/20/2015. Right sided weakness Epilepsy ([facility]) Migraines Depression Anemia H/O blood clots portal vein Hyperlipidemia Colitis Bronchitis, chronic ([facility]) Low back pain Abnormal heart rhythm Wears dentures Anxiety Acid reflux Nausea & vomiting 03/22/2022 TIA (transient ischemic attack) 2007 Arthritis Osteoporosis Clotting disorder ([facility]/HCC) ([facility]) Cataract Brain concussion Neuromuscular disorder ([facility]) Peptic ulceration Autoimmune disease (CMS/HCC) ([facility]) Mixed conductive and sensori neural hearing loss GI (gastrointestinal bleed) Infection Family History Medical History Relation Name Comments Cirrhosis Brother 1 Zachariah Depression Brother 1 Zachariah Drug abuse Brother 1 Zachariah Early Brother 1 Zachariah Hearing loss Brother 1 Zachariah Rheumatic fever Brother 1 Zachariah mitral valve replacement Brother 1 Zachariah Chronic Pain Brother 2 Parrish Depression Brother 2 Parrish Hearing loss Brother 2 Parrish Hypertension Brother 2 Parrish Hypotension Brother 2 Parrish Memory loss Brother 2 Parrish Rashes / Skin problems Brother 2 Parrish Chronic Pain Brother 3 Alzheimer's disease Father Isaías Arthritis Father Isaías Bipolar disorder Father Isaías Bladder Cancer Father Isaías Cancer Father Isaías Chronic Pain Father Isaías Depression Father Isaías Hearing loss Father Isaías Heart attack Father Isaías Heart disease Father Isaías Hypertension Father Isaías Kidney disease Father Isaías Memory loss Father Isaías Osteoarthritis Father Isaías Psoriasis Father Isaías Stroke Father Isaías Bladder Cancer Father's Brother 1 Cancer Father's Brother 2 Cameron Jr. Hearing loss Father's Brother 2 Cameron Jr. Hypertension Father's Brother 2 Cameron Jr. Kidney disease Father's Brother 2 Cameron Jr. Memory loss Father's Sister 1 Bonnie Obesity Father's Sister 2 Ling Rashes / Skin problems Father's Sister 2 Ling Alzheimer's disease Maternal Grandfather Samaria Bleeding Disorder Maternal Grandfather Samaria Hearing loss Maternal Grandfather Samaria Thrombocytopenia Maternal Grandfather Samaria Alzheimer's disease Maternal Grandmother Candy Dementia Maternal Grandmother Candy Memory loss Maternal Grandmother Seble Stroke Maternal Grandmother Seble Alzheimer's disease Mother Harika-Bello Anemia Mother Harika-Bello Bleeding Disorder Mother Harika-Bello COPD Mother Harika-Bello Chronic Pain Mother Harika-Bello Cirrhosis Mother Harika-Bello Liver Crohn's disease Mother Harika-Bello Depression Mother Harika-Bello Hearing loss Mother Harika-Bello Memory loss Mother Harika-Bello Miscarriages / Stillbirths Mother Harika-Bello Myelodysplastic syndrome Mother Harika-Bello Alzheimer's disease Mother's Brother 1 Norm Anemia Mother's Brother 1 Norm Depression Mother's Brother 1 Norm Diabetes Mother's Brother 1 Norm Alzheimer's disease Mother's Brother 2 Josh Cancer Mother's Brother 2 Josh Rashes / Skin problems Mother's Brother 2 Josh Alzheimer's disease Mother's Brother 3 Sal Alzheimer's disease Mother's Brother 4 Hank Cancer Mother's Brother 4 Hank Depression Mother's Brother 4 Hank Clotting disorder Mother's Brother 5 Redd Hearing loss Mother's Sister Karin Memory loss Mother's Sister Karin Miscarriages / Stillbirths Mother's Sister Karin Bladder Cancer Paternal Grandfather Cameron Sr. Cancer Paternal Grandfather Cameron Sr. Kidney disease Paternal Grandfather Cameron Sr. Alzheimer's disease Paternal Grandmother Lin Arthritis Paternal Grandmother Lin Memory loss Paternal Grandmother Lin Anemia Sister 1 Tess Anesthesia problems Sister 1 Tess TITO/V Anxiety disorder Sister 1 Tess Arthritis Sister 1 Tess Bipolar disorder Sister 1 Tess defects Sister 1 Tess Bleeding Disorder Sister 1 Tess Cancer Sister 1 Tess Chronic Pain Sister 1 Tess Depression Sister 1 Tess Drug abuse Sister 1 Tess Hypertension Sister 1 Tess Miscarriages / Stillbirths Sister 1 Tess PONV Sister 1 Tess Rashes / Skin problems Sister 1 Tess Stroke Sister 1 Tess Arnold-Chiari malformation Sister 2 Lupus Sister 2 Arthritis Sister 3 Bree Chronic Pain Sister 3 Bree Depression Sister 3 Bree Rashes / Skin problems Sister 3 Bree No Known Problems Sister 4 Relation Name Status Comments Brother 1 Zachariah Alive Brother 2 Parrish Alive Brother 3 Alive Father Isaías Father's Brother 1 Father's Brother 2 Cameron Jr. Father's Sister 1 Bonnie Father's Sister 2 Ling Maternal Grandfather Samaria Maternal Grandmother Seble Mother Emilie Mother's Brother 1 Tommie Mother's Brother 2 Josh Mother's Brother 3 Sal Mother's Brother 4 Hank Mother's Brother 5 Redd Mother's Sister Karin Paternal Grandfather Cameron Sr. Paternal Grandmother Lin Sister 1 Tess Alive Sister 2 Alive Sister 3 Bree Alive Sister 4 Alive Social History Tobacco Use Types Packs/Day [...] on file Legal Sex Female 10:13 AM LEG MAN Gender Identity Female 06/12/2023 3:27 PM CDT Sexual Orientation Lesbian 06/12/2023 3: 27 PM CDT Obstetrics History Last Filed Vital Signs Vital Sign Reading Time Taken Comments Blood Pressure 102/67 12/29/2024 9:40 AM LEG MAN Pulse 99 12/29/2024 9:40 AM LEG MAN Temperature 36.8 C (98.2 F) 12/29/2024 9:40 AM LEG MAN Respiratory Rate 12 09/18/2024 8:51 AM CDT Oxygen Saturation 99% 12/29/2024 9:40 AM LEG MAN Inhaled Oxygen Concentration - - Weight 82.9 kg (182 lb 12.8 oz) 12/29/2024 9:40 AM LEG MAN Height 165.1 cm (5' 5 ) 12/29/2024 9:40 AM LEG MAN Body Mass Index 30.42 12/29/2024 9:40 AM LEG MAN Plan of Treatment Scheduled Procedures Name Priority Associated Diagnoses Date/Ti me COLONOSCOPY Iron deficiency Health Maintenance Due Date Last Done Comments Breast Cancer Screening-Mammogram 1971 Cervical Cancer Screening 1971 Hepatitis C Screening 1971 Pneumococcal vaccine <65 (1 of 2 - PCV) 1977 DTaP/Tdap/Td Vaccine (1 - Tdap) 1982 Hepatitis B Screening 1989 Regular Well Visit/Exam 18-64 1989 Zoster Vaccine (1 of 2) 1990 Depression Screening 09/25/2023 09/25/2022, 04/24/20 22 Influenza Vaccine (#1) 2024 Lung Cancer Screening 10/14/2025 10/13/2024 Colon Cancer Screening-Colonoscopy 03/14/20332022 Goals Goal Patient Goal Type Associated Problems [...] as needed Medical Devices Implanted Type Area Die Engraver Device Identifier Shelf Expiration Date Model / Serial / Lot [employer] Lens Iol Cna0t0.230 Clareon [employer] Cna0t0.230 - [id number] - [id number] Implanted:Qty: 1 on 10/29/2023 by Melvin San MD at [facility] Left: Eye [employer] [id number] 06/25/2026 CNA0T0.23 0 / [id number] / Procedures Procedure Name Priority Date/Time Associated Diagnosis Comments DIFFERENTIAL AUTO Routine 12/29/2024 10: 27 AM LEG MAN Crohn's disease of both small and large intestine with other complication (HCC) CBC WITH AUTO DIFFERENTIAL Routine 12/29/2024 10:27 AM LEG MAN Crohn's disease of both small and large intestine with other complication (HCC) CRP (ACUTE PHASE) Routine 12/29/2024 10: 27 AM LEG MAN Crohn's disease of both small and large intestine with other complication (HCC) VITAMIN B12 Routine 12/29/2024 10:27 AM LEG MAN Crohn's disease of both small and large intestine with other complication (HCC) VITAMIN D 25 HYDROXY Routine 12/29/2024 10:27 AM LEG MAN Crohn's disease of both small and large intestine with other complication (HCC) CT LUNG CANCER SCREENING Schedule Routine, Read Routine (OP Routine) 10/13/2024 4:36 PM LEG MAN Nicotine dependence, cigarettes, in remission COLONOSCOPY 03/14/2023 11:16 AM CDT from Last 3 Months or Most Recently Relevant to Health Maintenance Results * Differential, auto (12/29/2024 10:27 AM LEG MAN) Neutrophil abs 4.1 1.5 - 6.5 K/cumm Imm gran abs 0.0 0.0 - 0.1 K/cumm [facility] Lymphocyte abs 1.5 0.8 - 3.3 K/cumm [facility] Monocyte abs 0.5 0.2 - 0.8 K/cumm [facility] Eosinophil abs 0.2 0.0 - 0.5 K/cumm [facility] Basophil abs 0.1 0.0 - 0.1 K/cumm [facility] Neutrophil pct 64.4 % [facility] Comment: Interpretive Data Percent cell count reference ranges are not reported, since discordance with absolute values may lead to misinterpretation of CBC data. Current Interpretive Data was last revised on 2018. Imm gran pct 0.5 % [facility] Comment: Interpretive Data Percent cell count reference ranges are not reported, since discordance with absolute values may lead to misinterpretation of CBC data. Current Interpretive Data was last revised on 2018. Lymphocyte pct 23.6 % [facility] Comment: Interpretive Data Percent cell count reference ranges are not reported, since discordance with absolute values may lead to misinterpretation of CBC data. Current Interpretive Data was last revised on 2018. Monocyte pct 7.6 % [facility] Comment: Interpretive Data Percent cell count reference ranges are not reported, since discordance with absolute values may lead to misinterpretation of CBC data. Current Interpretive Data was last revised on 2018. Eosinophil pct 3.0 % [facility] Comment: Interpretive Data Percent cell count reference ranges are not reported, since discordance with absolute values may lead to misinterpretation of CBC data. Current Interpretive Data was last revised on 2018. Basophil pct 0.9 % [facility] Comment: Interpretive Data Percent cell count reference ranges are not reported, since discordance with absolute values may lead to misinterpretation of CBC data. Current Interpretive Data was last revised on 2018. Blood 12/29/2024 10:2 7 AM LEG MAN 12/29/2024 11:47 AM LEG MAN Corazon Becerra NP LAB BLOOD ORDERABLES Final Result [facility] Department of Laboratories [place], [place] [id number] * (ABNORMAL) CBC with auto differential (12/29/2024 10:27 AM LEG MAN) WBC 6.4 3.8 - 9.9 K/cumm Hgb 13.5 11.9 - 15.5 g/dL [facility] Hct 41.8 35.6 - 45.5 % [facility] Plt 275 150 - 400 K/cumm [facility] MPV 10.3 9.1 - 12.3 fL [facility] RBC 4.33 3.90 - 5.20 M/cumm [facility] MCV 96.5(H) 81.3 - 96.4 fL [facility] MCH 31.2 27.1 - 33.3 pg [facility] MCHC 32.3 32.3 - 35.7 g/dL [facility] RDW CV 14.4 11.1 - 14.9 % [facility] RDW SD 51.3(H) 35.7 - 48.1 fL [facility] NRBC abs 0.00 0.00 - 0.01 K/cumm [facility] Blood 12/29/2024 10:2 7 AM LEG MAN 12/29/2024 11:47 AM LEG MAN Corazon Becerra HOTEL OFFICE MANAGER LAB BLOOD ORDERABLES Final Result Performing Organization Address City/[facility]/ZIP Co de Phone Number [facility] Department [place] [address] * (ABNORMAL) Vitamin D 25 hydroxy (12/29/2024 10:27 AM LEG MAN) Pathologist [facility] Vitamin D 25-OH 89(H) 30 - 80 ng/mL Blood 12/29/2024 10:2 7 AM LEG MAN 12/29/2024 11:47 AM LEG MAN Corazon Becerra HOTEL OFFICE MANAGER LAB BLOOD ORDERABLES Final Result [facility] Department [place] [address] * CRP (acute phase) (12/29/2024 10:27 AM LEG MAN) Pathologist [facility] CRP 1.0 <=10.0 mg/L Blood 12/29/2024 10:2 7 AM LEG MAN 12/29/2024 11:47 AM LEG MAN Corazon Sternmaggie Becerra HOTEL OFFICE MANAGER LAB BLOOD ORDERABLES Final Result [facility] [place] [address] * Vitamin B12 (12/29/2024 10:27 AM LEG MAN) Vitamin B12 524 230 - 1,250 pg/mL Blood 12/29/2024 10:2 7 AM LEG MAN 12/29/2024 11:47 AM LEG MAN Corazon Becerra HOTEL OFFICE MANAGER LAB BLOOD ORDERABLES Final Result Performing Organization Address [facility] de Phone Number [facility] ARNOLD [facility] [place] [address] * CT Lung Cancer Screening (10/13/2024 4:36 PM LEG MAN) Anatomical Region Laterality Modality Chest N/A Computed Tomogra phy 10/17/2024 8:06 AM LEG MAN Narrative 10/17/2024 8:07 AM LEG MAN EXAM DESCRIPTION: CT LUNG CANCER SCREENING REASON [...] Electronically signed by David Ortiz M.D. SN: SN Report ID: [id number] Reading Location: [id number] Procedure Note David Ortiz MD - 10/17/2024 [...] by David Ortiz M.D. SN: Report ID: [id number] Reading Location: [id number] Zia Hearn DO IMG CT PROCEDURES Final R esult * COLONOSCOPY (03/14/2023 11:16 AM CDT) Anatomical Region Laterality Modality Other Narrative Procedure Note Montrell Kern MD - 03/14/2023 11:16 AM CDT ENDOSCOPY LAB Patient Name: Danette Thomas Procedure Date: 03/14/2023 11:16 AM Date of : 1970 Admit Type: Outpatient Age: 52 Gender: Female Attending MD: Montrell Kern M.D. Room: [facility] ENDOSCOPY ROOM 05 Note Status: Finalized Procedure: [...] The scope was passed under direct vision.The [id number] was introduced through the anusand advanced to [...] Most Recently Relevant to Health Maintenance [place]ives For more information, please contact: [phone] * Full Code (Latest Code Status on File) Date Activated Date Inactivated Comments 03/14/2023 9:25 AM 03/14/2023 4:21 PM Care Teams Pipe Organ Builder Relationship Specialty Start Date End Date Kassandra Hooks NP [address] [facility] [place] [address] PCP - General Nurse Practitioner 08/27/24 Lucho Peralta MD [address] [place] [address] Referring Physician Otolaryngology 12/07/23
--- OUTSIDE RECORDS SUMMARY | 2024-12-30 18:24 | XMS_ITS | Encounter Summary ---
Author Organization [facility] Address [address] [place] [address] Phone Care Team Providers Care Vice President Corporate Communications Name Role Phone Jesus Gonzalez DO Primary Care Provider Odilon Vyas MD Primary Care Provider [phone] Lucho Peralta MD Unavailable Xiomara Carlos MD Primary Care Provider [phone] Odilon Vyas MD Primary Care Provider [phone] Unknown, Notinfile Primary Care Provider Unavail able Kassandra Hooks NP Primary Care Provider + Encounter Details Date Type Department Care Team (Latest Contact Info) Description 08/02/[address] 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 Gender Identity Female 06/12/2023 3:27 PM CDT Sexual Orientation Lesbian 06/12/2023 3: 27 PM CDT documented as of this encounter Plan of Treatment Scheduled Procedures Name Priority Associated Diagnoses Date/Ti me COLONOSCOPY Iron deficiency documented as of this encounter Procedures Procedure Name Priority Date/Time Associated Diagnosis Comments SCAN - RADIOLOGY/IMAGING 08/02/2015 documented in this encounter Results * SCAN - RADIOLOGY/IMAGING (08/02/2015) Anatomical Region Laterality Modality Other us Chasity Borjas RN Final Result documented in this encounter Visit Diagnoses Not on filedocumented in this encounter Care Teams Vice President Corporate Communications Relationship Specialty Start Date End Date Jesus Gonzalez DO [address] [place] [address] PCP - General Family Medicine 10/26/21 02/07/23 Odilon Vyas MD [address] [place] [address] PCP - General Family Medicine 02/08/23 02/07/24 Xiomara Carlos MD [address] [place] [address] PCP - General Psychiatry 02/08/24 03/23/24 Odilon Vyas MD [address] [place] [address] PCP - General Family Medicine 03/24/24 08/12/24 Unknown, Notinfile PCP - General 08/13/24 08/26/24 Kassandra Hooks, EDWIGE [address] [place] [address] [place] [address] PCP - General Nurse Practitioner 08/27/24 Lucho Peralta MD [address] [facility] [place] [address] Referring Physician Otolaryngology 12/07/23 documented as of this encounter
--- OUTSIDE RECORDS SUMMARY | 2024-12-30 18:24 | XMS_ITS | Encounter Summary ---
Author Organization [facility] Address [address] [place] [address] Phone Care Team Providers Care Medical Appliance Maker Name Role Phone Jesus Gonzalez DO Primary Care Provider Odilon Vyas MD Primary Care Provider [phone] Lucho Peralta MD Unavailable Xiomara Carlos MD Primary Care Provider Odilon Vyas MD Primary Care Provider [phone] Unknown, Notinfile Primary Care Provider Unavail able Kassandra Hooks NP Primary Care Provider + Encounter Details Date Type Department Care Team (Latest Contact Info) Description 05/10/2015 Orders Only [facility] Chasity Borjas, CARMINA [address] [facility] [address] [place], [place] [id number] Social History Tobacco Use Types Packs/Day Years Used Date Smoking Tobacco: Never Assessed Comments Unknown Sex and Gender Information Value Date Recorded Sex Assigned at Not on file 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 Sex 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 Gender Identity Female 06/12/2023 3:27 PM CDT Sexual Orientation Lesbian 06/12/2023 3: 27 PM CDT documented as of this encounter Plan of Treatment Scheduled Procedures Name Priority Associated Diagnoses Date/Ti me COLONOSCOPY Iron deficiency documented as of this encounter Procedures Procedure Name Priority Date/Time Associated Diagnosis Comments SCAN - RADIOLOGY/IMAGING 05/10/2015 documented in this encounter Results * SCAN - RADIOLOGY/IMAGING (05/10/2015) Anatomical Region Laterality Modality Other us Chasity Borjas RN Edite d Result - Final documented in this encounter Visit Diagnoses Not on filedocumented in this encounter Care Teams Medical Appliance Maker Relationship Specialty Start Date End Date Jesus Gonzalez DO [address] [place] [address] PCP - General Family Medicine 10/26/21 02/07/23 Odilon Vyas MD [address] [place] [address] PCP - General Family Medicine 02/08/23 02/07/24 Xiomara Carlos MD [address] [place] [address] PCP - General Psychiatry 02/08/24 03/23/24 Odilon Vyas MD [address] [place] [address] PCP - General Family Medicine 03/24/24 08/12/24 Unknown, Notinfile PCP - General 08/13/24 08/26/24 Kassandra Hooks, EDWIGE [address] [place] [address] [place] [address] PCP - General Nurse Practitioner 08/27/24 Lucho Peralta MD [address] [place] [address] Referring Physician Otolaryngology 12/07/23 documented as of this encounter
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
--- OUTSIDE RECORDS SUMMARY | 2024-12-30 18:25 | XMS_ITS | Clinical Summary ---
Author Organization [facility] Address [address] [place] [address] Care Team Providers Care Senior It Recruiter Name Role Phone Joanne Dawkins MD Primary Care Provider [phone] Allergies Active Allergy Reactions Criticality Noted Date Comments Amoxicillin-Pot Clavulanate Other (see comment) Low 02/06/2023 Makes Crohn's flare up Hydrocodone-Acetaminop hen Nausea and Vomiting,Other (see comment) High 05/29/2016 Manor Latex Itching High 08/10/2016 Lidocaine Itching Low 08/10/2016 Silver Other (see comment) High 07/19/2023 Tegaderm dressing- used with PICC line (long term care pharmacist is when she had reaction) Sulfa Antibiotics Other (see comment) High 9 Rectal bleeding Drugs containing sulfur causes internal bleeding--rectal bleeding Sulfamethoxazole-Trime thoprim Other (see comment) Low 02/06/2023 Makes Crohn's flare up Medications ANORO ELLIPTA 62.5-25 MCG/ACT inhaler 4 Active tiZANidine (ZANAFLEX) 2 MG tablet 4 Active rosuvastatin (CRESTOR) 40 MG tablet 4 Active rOPINIRole (REQUIP) 1 MG tablet 4 Active predniSONE (DELTASONE) 5 mg tablet 4 Active prednisoLONE acetate (PRED FORTE) 1 % ophthalmic suspension 4 Active albuterol sulfate HFA 108 (90 Base) MCG/ACT inhaler 4 Active albuterol (PROVENTIL) (2.5 MG/3ML) 0.083% nebulizer solution 4 Active HUMIRA, 2 PEN, 40 MG/0.8ML injection 4 Active ELIQUIS 5 MG tablet 09/04/20 2 4 Active ALPRAZolam (XANAX) 0.5 MG tablet 4 Active ciprofloxacin (CILOXAN) 0.3 % ophthalmic solution 09/26/20 2 3 Active diphenoxylate-atrop ine (LOMOTIL) 2.5-0.025 MG tablet 11/13/20 2 3 Active enoxaparin (LOVENOX) 80 mg/0.8 mL Solution Prefilled Syringe syringe 4 Active eszopiclone (LUNESTA) 2 MG tablet 4 Active Eszopiclone 3 MG Tab 4 Active ketorolac (ACULAR) 0.5 % ophthalmic solution 4 Active moxifloxacin (VIGAMOX) 0.5 % ophthalmic solution 12/14/19 2 4 Active mercaptopurine (PURINETHOL) 50 MG tablet 4 Active ondansetron (ZOFRAN-ODT) 4 MG disintegrating tablet 4 Active mupirocin (BACTROBAN) 2 % ointment 4 Active oxyCODONE-acetamino phen (PERCOCET) 10-325 MG tablet 4 Active PARoxetine (PAXIL) 40 MG tablet 4 Active pantoprazole EC (PROTONIX) 40 MG tablet 4 Active Turmeric (CURCUPLEX-95) 500 MG Cap Take 1,000 mg by mouth. Active fluticasone propionate (FLONASE) 50 MCG/ACT nasal spray 2 sprays by Nasal route. Active Cyanocobalamin 1000 MCG SL Tab Take 1,000 mcg by mouth daily. Active chlorhexidine (PERIDEX) 0.12 % solution 15 mLs. Active calcium citrate-vitamin D 315 mg-6.25 mcg 315-6.25 MG-MCG Tab tablet Take 1 tablet by mouth 2 (two) times daily. Active aspirin-acetaminoph en-caffeine (EXCEDRIN MIGRAINE) 250-250-65 MG tablet Take 1 tablet by mouth. Active aspirin EC (ECOTRIN) 81 MG tablet Take 1 tablet (81 mg total) by mouth. Active Active Problems Problem Noted Date Diagnosed Date History of cerebrovascular accident 09/14/2024 History of Crohn's disease 09/14/2024 Factor V deficiency (CMS/HCC [facility]/HCC) 09/14/2024 History of atrial fibrillation 09/14/2024 Chronic uveitis of both eyes 09/14/2024 RLS (restless legs syndrome) 09/14/2024 Encounters Date Type Department Care Team Description 11/06/2024 9:16 PM JAVA ANDROID DEVELOPER - 11/06/2024 11:59 PM JAVA ANDROID DEVELOPER Hospital Encounter [facility] [place] [address] Daniel Wilde MD Discharge Disposition: Home or Self Care (Routine Discharge) 11/06/2024 Orders Only [facility] [place] [address] Daniel Wilde MD from Last 3 Months Family History Medical History Relation Comments Hypertension Brother BLADDE CANCER Father Hypertension Father MACK INARCT Father Alpha-1 antitrypsin deficiency Mother Cirrhosis Mother Crohns Disease Mother Myelodysplastic syndrome Mother Hypertension Sister Lupus Sister Relation Status Comments Brother Father Mother Sister Social History Tobacco Use Types Packs/Day Years Used Date Smoking Tobacco: Former Cigarettes Smokeless Tobacco: Former Tobacco Cessation:Counseling Given: No Alcohol Use Standard Drinks/Week Comments Not Currently 0 (1 standard drink = 0.6 oz pur e alcohol) PHQ-2 Answer Date Recorded Patient Health Questionnaire-2 Score 0 09/12/2024 Comments No Sex and Gender Information Value Date Recorded Sex Assigned at Not on file Legal Sex Female 8:25 AM CDT Gender Identity Not on file Sexual Orientation Not on file Last Filed Vital Signs Vital Sign Reading Time Taken Comments Blood Pressure 111/66 09/12/2024 1:40 PM CDT Pulse 70 09/12/2024 1:40 PM CDT Temperature 36.2 C (97.1 F) 09/12/2024 1:40 PM CDT Respiratory Rate 16 09/12/2024 1:40 PM CDT Oxygen Saturation 96% 09/12/2024 1:40 PM CDT Inhaled Oxygen Concentration - - Weight 80.8 kg (178 lb 3.2 oz) 09/12/2024 1:40 P M CDT Height 165.1 cm (5' 5 ) 09/12/2024 1:40 PM CDT Body Mass Index 29.65 09/12/2024 1:40 PM CDT Plan of Treatment Health Maintenance Due Date Last Done Comments Cervical Cancer Screening Pa p Smear (Age 30 to 64) Every 3 Years 1971 Colorectal Cancer Screening Colonoscopy (10 Years) 1971 Meningococcal Vaccine (1 - R isk 2-dose series) 1973 Annual Physical 1974 Meningococcal B Vaccine (1 o f 5 - Increased Risk) 1981 Hepatitis C 1989 DTaP, Tdap and Td Vaccines ( 1 - Tdap) 1990 Hepatitis B Vaccines (1 of 3 - 19+ 3-dose series) 1990 Cervical Cancer Screening Pa p with HPV Testing (Age 30 to 64) Every 5 Years 2001 Cervical Cancer Screening with HPV 2001 Mammogram Screening 2011 Zoster Vaccines (1 of 2) 2021 PHQ-2 (Physician [place]) 11/19/2024 09/12/2024 COVID-19 Vaccine ( - 2023-2 5 season) 2025 Postponed from 07/20 (Patient Refused) Influenza Adult (#1) 2025 Postpon ed from 08/19/2024 (Patient Refused) PHQ-2 (Physician [place]) 09/12/2025 09/12/2024 Pneumococcal Vaccine: Pediat rics (0 to 5 Years) and At-Risk Patients (6 to 64 Years) Aged Out No longer eligi ble based on patient's age to complete this topic RSV Immunizations Under 20 Months Aged Out No longer eligible based on patient's age to complete this topic Procedures Procedure Name Priority Date/Time Associated Diagnosis Comments HC BODY FLUID CULTURE Routine 11/06/2024 2:45 PM JAVA ANDROID DEVELOPER CULTURE, ANAEROBIC Routine 11/06/2024 2: 45 PM JAVA ANDROID DEVELOPER Chronic pansinusitis CULTURE, FUNGUS W/ STAIN Routine 11/06/2024 2:45 PM JAVA ANDROID DEVELOPER Chronic pansinusitis from Last 3 Months Results * CULTURE FUNGUS W/ STAIN (11/06/2024 2:45 PM JAVA ANDROID DEVELOPER) SPEC DESCRIPTION MAXILLARY SINUS,LEFT 11/06/2024 9:23 PM JAVA ANDROID DEVELOPER [facility] SPECIAL REQUESTS NO SPECIAL REQUEST 11/06/2024 9:23 PM JAVA ANDROID DEVELOPER [facility] STAIN RESULT: NO YEAST OR FUNGAL ELEMENTS SEEN 11/07/2024 5:44 PM JAVA ANDROID DEVELOPER [facility] CULTURE RESULT NO FUNGUS ISOLATED AT 4 WEEKS. 12/06/2024 2:40 PM JAVA ANDROID DEVELOPER [facility] MAXILLARY SINUS STRUCTURE / Unknown 11/06/2024 2:45 PM JAVA ANDROID DEVELOPER 11/06/2024 9:23 PM JAVA ANDROID DEVELOPER Daniel Wilde MD MICROBIOLOGY - GENERAL ORDERAB LES Final Result [facility] [address] [place] [address], [place] [phone] * (ABNORMAL) CULTURE, WOUND, W/GRAM STAIN (11/06/2024 2:45 PM JAVA ANDROID DEVELOPER) SPEC DESCRIPTION MAXILLARY SINUS,LEFT 11/07/2024 6:45 AM JAVA ANDROID DEVELOPER [facility] SPECIAL REQUESTS NO SPECIAL REQUEST 11/07/2024 6:45 AM JAVA ANDROID DEVELOPER [facility] GRAM STAIN RESULT MANY WHITE BLOOD CELLS SEEN 11/07/2024 5:43 PM JAVA ANDROID DEVELOPER [facility] GRAM STAIN RESULT RARE GRAM POSITIVE COCCI 11/07/2024 5:43 PM JAVA ANDROID DEVELOPER [facility] GRAM STAIN RESULT MANY GRAM POSITIVE RODS 11/07/2024 5:43 PM JAVA ANDROID DEVELOPER [facility] CULTURE RESULT SPARSE GROWTH OF KLEBSIELLA PNEUMONIAE (A) 11/09/2024 9:46 AM JAVA ANDROID DEVELOPER [facility] CULTURE RESULT HEAVY GROWTH OF DIPHTHEROIDS SAVING ISOLATE FOR 5 DAYS. CONTACT MICROBIOLOGY DEPARTMENT IF FURTHER WORKUP IS INDICATED. (A) 11/09/2024 9:46 AM JAVA ANDROID DEVELOPER [facility] MAXILLARY SINUS STRUCTURE / Unknown 11/06/2024 2:45 PM JAVA ANDROID DEVELOPER 11/07/2024 6:44 AM JAVA ANDROID DEVELOPER Narrative Organism Antibiotic Method Susceptibility Klebsiella pneumoniae AMPICILLIN MARK (VITEK) 16: Resistant Klebsiella pneumoniae AMPICILLIN/SULBACTAM MARK (VITEK) <=2: Sensitive Klebsiella pneumoniae CEFTRIAXONE MARK (VITEK) <=1: Sensitive Klebsiella pneumoniae CEFTAZIDIME MARK (VITEK) <=1: Sensitive Klebsiella pneumoniae CEFAZOLIN MARK (VITEK) <=4: Sensitive Klebsiella pneumoniae ESBL MARK (VITEK) NEG: Sensitive Klebsiella pneumoniae GENTAMICIN MARK (VITEK) <=1: Sensitive Klebsiella pneumoniae LEVOFLOXACIN MARK (VITEK) <=0.12: Sensitive Klebsiella pneumoniae PIPRACIL/TAZO MARK (VITEK) <=4: Sensitive Klebsiella pneumoniae TRIMETH-SULFAMETH. MARK (VITEK) <=20: Sensitive us Daniel Wilde MD MICROBIOLOGY - GENERAL ORDERAB LES Final Result [facility] [address] [place] [address], [place] [phone] * CULTURE ANAEROBIC (11/06/2024 2:45 PM JAVA ANDROID DEVELOPER) SPEC DESCRIPTION MAXILLARY SINUS,LEFT 11/06/2024 9:23 PM JAVA ANDROID DEVELOPER [facility] SPECIAL REQUESTS NO SPECIAL REQUEST 11/06/2024 9:23 PM JAVA ANDROID DEVELOPER [facility] GRAM STAIN RESULT MANY WHITE BLOOD CELLS SEEN 11/07/2024 5:44 PM JAVA ANDROID DEVELOPER [facility] GRAM STAIN RESULT RARE GRAM POSITIVE COCCI 11/07/2024 5:44 PM JAVA ANDROID DEVELOPER [facility] GRAM STAIN RESULT MANY GRAM POSITIVE RODS 11/07/2024 5:44 PM JAVA ANDROID DEVELOPER [facility] CULTURE RESULT NO ANAEROBES ISOLATED AT 5 DAYS. 11/12/2024 7:13 AM JAVA ANDROID DEVELOPER [facility] MAXILLARY SINUS STRUCTURE / Unknown 11/06/2024 2:45 PM JAVA ANDROID DEVELOPER 11/06/2024 9:24 PM JAVA ANDROID DEVELOPER us Daniel Wilde MD MICROBIOLOGY - GENERAL ORDERAB LES Final Result [facility] [address] [place] [address], [place] [phone] from Last 3 Months Insurance [facility] Care Teams Senior It Recruiter Relationship Specialty [place] [id number] [address] PCP - General INTERNAL MEDICINE 09/09/24
--- OUTSIDE RECORDS SUMMARY | 2024-12-30 18:25 | XMS_ITS | Continuity of Care Document ---
Author Organization [facility] Address [address] [place] [address] Phone Care Team Providers Care Retail Field Representative Name Role Phone Zahira Isbell MD Unavailable Unavailable Procedures Procedure Date Electrocardiogram report Advance Directives Directive Yes / No Effective Date File Name No Information Encounters Encounter Description Practice Location Reason(s) For Visit Diagnoses Date Provider Providers Copied on Encounter [facility], [address], [place], [place], [id number], [place] tel:[phone] [facility] No Information 6 Sukhi Rodriges. [address] [place] [address], [facility], [place]. tel:[phone] Family History Family Member Type Diagnosis Age At Onset No Information Payers Payer name Insurance type Covered republican ID Authoriza tion(s) [facility] PPO BL [id number] Social History Type Description Quantity Date Captured [...]
--- OUTSIDE RECORDS SUMMARY | 2024-12-30 18:25 | XMS_ITS | Encounter Summary ---
Author Organization [facility] Address [address] [place] [address] Phone Care Team Providers Care Lining Feller Blindstitch Name Role Phone Jesus Gonzalez DO Primary Care Provider Odilon Vyas MD Primary Care Provider [phone] Lucho Peralta MD Unavailable Xiomara Carlos MD Primary Care Provider [phone] Odilon Vyas MD Primary Care Provider [phone] Unknown, Notinfile Primary Care Provider Unavail able Kassandra Hooks NP Primary Care Provider + Encounter Details Date Type Department Care Team (Latest Contact Info) Description 08/17/2015 Orders Only [facility] CARDIOLOGY Chasity Borjas, CARMINA [address] [facility] [address] [place], [place] [id number] Social History Tobacco Use Types Packs/Day Years Used Date Smoking Tobacco: Never Assessed Comments Unknown Sex and Gender Information Value Date Recorded Sex Assigned at Not on file Legal Sex Female 10:13 AM PATIENT SUPPORT TECH Gender Identity Female 06/12/2023 3:27 PM CDT Sexual Orientation Lesbian 06/12/2023 3: 27 PM CDT documented as of this encounter Plan of Treatment Scheduled Procedures Name Priority Associated Diagnoses Date/Ti me COLONOSCOPY Iron deficiency documented as of this encounter Procedures Procedure Name Priority Date/Time Associated Diagnosis Comments SCAN - RADIOLOGY/IMAGING 08/17/2015 CARDIOLOGY DOCUMENT SCAN 08/16/2015 documented in this encounter Results * SCAN - RADIOLOGY/IMAGING (08/17/2015) Anatomical Region Laterality Modality Other us Chasity Borjas RN Final Result * Cardiology Document Scan (08/16/2015) Anatomical Region Laterality Modality Other us Chasity Borjas RN CV CARDIAC SERVICES P ROCEDURES Edited Result - Final documented in this encounter Visit Diagnoses Not on filedocumented in this encounter Care Teams Lining Feller Blindstitch Relationship Specialty Start Date End Date Jesus Gonzalez DO [address] [place] [address] PCP - General Family Medicine 10/26/21 02/07/23 Odilon Vyas MD [address] [place] [address] PCP - General Family Medicine 02/08/23 02/07/24 Xiomara Carlos MD [address] [place] [address] PCP - General Psychiatry 02/08/24 03/23/24 Odilon Vyas MD [address] [place] [address] PCP - General Family Medicine 03/24/24 08/12/24 Unknown, Notinfile PCP - General 08/13/24 08/26/24 Kassandra Hooks, EDWIGE [address] [place] [address] [place] [address] PCP - General Nurse Practitioner 08/27/24 Lucho Peralta MD [address] [facility] PROFESSIONAL [place] [address] Referring Physician Otolaryngology 12/07/23 documented as of this encounter
--- OUTSIDE RECORDS SUMMARY | 2024-12-30 18:25 | XMS_ITS | Encounter Summary ---
Author Organization [facility] Address [address] [place] [address] Phone Care Team Providers Care Aegis Console Operator Track Name Role Phone Lucho Peralta MD Unavailable Odilon Vyas MD Primary Care Provider [phone] Unknown, Notinfile Primary Care Provider Unavail able Kassandra Hooks NP Primary Care Provider + Encounter Details Date Type Department Care Team (Late st Contact Info) Description 06/24/2024 Orders Only [facility] Gastroenterology [facility] Medical Office Building [address], [address] [place] [address] Irma Dillon MD [address] [place] [address] Social History Tobacco Use Types Packs/Day Years Used Date Smoking Tobacco: Former Cigarettes 2 - 2014 Passive Smoke Exposure: Past Smokeless Tobacco: Never Passive Exposure Comments:Da d smoked AUDIT-C Answer Date Recorded Q1: How often do you have a drink containing alcohol? Never 04/08/2024 Q2: How many drinks containi ng alcohol do you have on a typical day when you are drinking? Patient does not drink Q3: How often do you have si x or more drinks on one occasion? Never 04/08/2024 PHQ-2 Answer Date Recorded PHQ-2 Total Score [...] on file Legal Sex Female 10:13 AM COMPUTER HELP DESK SPECIALIST Gender Identity Female 06/12/2023 3:27 PM CDT [...] on filedocumented in this encounter Care Teams Aegis Console Operator Track Relationship Specialty Start Date End Date Odilon Vyas MD [address] [place] [address] PCP - General Family Medicine 03/24/24 08/12/24 Unknown, Notinfile PCP - General 08/13/24 08/26/24 Kassandra Hooks NP [address] [place] [address] DEPT [place] [address] PCP - General Nurse Practitioner 08/27/24 Lucho Peralta MD [address] [facility] PROFESSIONAL [place] [address] Referring Physician Otolaryngology 12/07/23 documented as of this encounter
--- OUTSIDE RECORDS SUMMARY | 2024-12-30 18:25 | XMS_ITS | Encounter Summary ---
Author Organization [facility] Address [address] [place] [address] Phone Care Team Providers Care Child Care Director Name Role Phone Jesus Gonzalez DO Primary Care Provider Odilon Vyas MD Primary Care Provider [phone] Lucho Peralta MD Unavailable Xiomara Carlos MD Primary Care Provider [phone] Odilon Vyas MD Primary Care Provider [phone] Unknown, Notinfile Primary Care Provider Unavail able Kassandra Hooks NP Primary Care Provider + Encounter Details Date Type Department Care Team (Latest Contact Info) Description 08/16/2015 Orders Only [facility] CARDIOLOG[facility] Chasity Borjas, CARMINA [address] [facility] [address] [place], [place] [id number] Social History Tobacco Use Types Packs/Day Years Used Date Smoking Tobacco: Never Assessed Comments Unknown Sex and Gender Information Value Date Recorded Sex Assigned at Not on file Legal Sex Female 10:13 AM EQUIPMENT MAINTENANCE SUPERVISOR Gender Identity Female 06/12/2023 3:27 PM CDT Sexual Orientation Lesbian 06/12/2023 3: 27 PM CDT documented as of this encounter Plan of Treatment Scheduled Procedures Name Priority Associated Diagnoses Date/Ti me COLONOSCOPY Iron deficiency documented as of this encounter Procedures Procedure Name Priority Date/Time Associated Diagnosis Comments SCAN - RADIOLOGY/IMAGING 08/16/2015 documented in this encounter Results * SCAN - RADIOLOGY/IMAGING (08/16/2015) Anatomical Region Laterality Modality Other us Chasity Borjas RN Final Result documented in this encounter Visit Diagnoses Not on filedocumented in this encounter Care Teams Child Care Director Relationship Specialty Start Date End Date Jesus Gonzalez DO [address] [place] [address] PCP - General Family Medicine 10/26/21 02/07/23 Odilon Vyas MD [address] [place] [address] PCP - General Family Medicine 02/08/23 02/07/24 Xiomara Carlos MD [address] [place] [address] PCP - General Psychiatry 02/08/24 03/23/24 Odilon Vyas MD [address] [place] [address] PCP - General Family Medicine 03/24/24 08/12/24 Unknown, Notinfile PCP - General 08/13/24 08/26/24 Kassandra Hooks, EDWIGE [address] [place] [address] [place] [address] PCP - General Nurse Practitioner 08/27/24 Lucho Peralta MD [address] [facility] [place] [address] Referring Physician Otolaryngology 12/07/23 documented as of this encounter
--- OUTSIDE RECORDS SUMMARY | 2024-12-30 18:51 | XMS_ITS | Continuity of Care Document ---
Author Organization [facility] Address [address] [place] [address] Phone Care Team Providers Care Barnworker Groom Name Role Phone Zahira Isbell MD Unavailable Unavailable Procedures Procedure Date Electrocardiogram report Advance Directives Directive Yes / No Effective Date File Name No Information Encounters Encounter Description Practice Location Reason(s) For Visit Diagnoses Date Provider Providers Copied on Encounter [facility], [address], [place], [place], [id number], [place] tel:[phone] [facility] No Information 6 Sukhi Rodriges. [address] [place] [address], [facility], [place]. tel:[phone] Family History Family Member Type Diagnosis Age At Onset No Information Payers Payer name Insurance type Covered libertarian ID Authoriza tion(s) [facility] PPO BL [id number] Social History Type Description Quantity Date Captured [...]
--- OUTSIDE RECORDS SUMMARY | 2024-12-30 18:51 | XMS_ITS | Encounter Summary ---
Author Organization [facility] Address [address] [place] [address] Phone Care Team Providers Care Senior Consumer Insights Consultant Name Role Phone Lucho Peralat MD Unavailable Kassandra Hooks NP Primary Care Provider + Encounter Details Date Type Department Care Team (Late st Contact Info) Description 12/29/2024 9:30 AM FIRE FIGHTING EQUIPMENT SPECIALIST Office Visit [facility] Gastroenterology [address] [facility] 2nd Floor [address] [place] [address] Corazon Becerra, EDWIGE [address] [place] [address] Crohn's disease of both small and large [...] on file Legal Sex Female 10:13 AM FIRE FIGHTING EQUIPMENT SPECIALIST Gender Identity Female 06/12/2023 3:27 PM CDT Sexual Orientation Lesbian 06/12/2023 3: 27 PM CDT documented as of this encounter Last Filed Vital Signs Vital Sign Reading Time Taken Comments Blood Pressure 102/67 12/29/2024 9:40 AM FIRE FIGHTING EQUIPMENT SPECIALIST Pulse 99 12/29/2024 9:40 AM FIRE FIGHTING EQUIPMENT SPECIALIST Temperature 36.8 C (98.2 F) 12/29/2024 9:40 AM FIRE FIGHTING EQUIPMENT SPECIALIST Respiratory Rate - - Oxygen Saturation 99% 12/29/2024 9:40 AM FIRE FIGHTING EQUIPMENT SPECIALIST Inhaled Oxygen Concentration - - Weight 82.9 kg (182 lb 12.8 oz) 12/29/2024 9:40 AM FIRE FIGHTING EQUIPMENT SPECIALIST Height 165.1 cm (5' 5 ) 12/29/2024 9:40 AM FIRE FIGHTING EQUIPMENT SPECIALIST Body Mass Index 30.42 12/29/2024 9:40 AM FIRE FIGHTING EQUIPMENT SPECIALIST documented in this encounter Patient Instructions * Patient Instructions* Corazon Becerra NP - 12/29/2024 9:30 AM FIRE FIGHTING EQUIPMENT SPECIALIST Will call to set up MRCP of pancreas and also colonoscopy Labs today FIGHTING EQUIPMENT SPECIALIST documented in this encounter Progress Notes * [...] prompting an ileocolic resection in [address] [facility] where 6 inches o f small bowel [...] Colonoscopy in 2019 prior to establishing with vt looked good though we do not have [...] Active Problem List Diagnosis Date Noted Immunodeficiency ([facility]) 10/17/2024 Chronic obstructive pulmonary disease, unspecified ([facility]) 09/08/2024 Hip pain 02/25/2024 Eustachian tube dysfunction, [...] uveitis 08/09/2023 Chiari malformation type I (CMS/HCC) ([facility]) 08/09/2023 Chronic lower back pain 02/06/2023 Pancreas cyst 02/06/2023 Recurrent oral ulcers 02/06/2023 Abdominal pain 03/22/2022 Nausea & vomiting 03/22/2022 Crohn's disease of both small and large intestine with other complication ([facility]) 02/13/2022 Year of Diagnosis: 2014 Year of [...] valve Surgeries: ileocolic resection in [address] 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 Right sided weakness Depression Epilepsy ([facility]) Factor 5 Leiden mutation, heterozygous ([facility]) GI (gastrointestinal bleed) H/O blood clots portal vein Hyperlipidemia Infection Low back pain Migraines Mixed conductive and sensorineural hearing loss Nausea & vomiting 03/22/2022 Neuromuscular disorder ([facility]) Osteoporosis Peptic ulceration TIA (transient ischemic attack) 2007 Wears dentures Current Outpatient Medications Medication Sig Dispense Refill [id number]-[id number] (EXCEDRIN MIGRAINE) 250-250-65 mg per tablet Take [...] TABLET BY MOUTH IN THE MORNING BEFORE [id number] tablet 11 PARoxetine (PAXIL) 40 mg tablet [...] 1 tablet (1,000 mcg total) by mouth rocket assembly operator before breakfast No particular days moxifloxacin (VIGAMOX) [...] Return in about 8 months (around 08/28/2025). FIGHTING EQUIPMENT SPECIALIST documented in this encounter Plan of Treatment Pending Results Name Type Priority Associated Diagnoses Date /Time T-SPOT.TB Blood Microbiology Routine Crohn's disease of both small and large intestine with other complication (HCC) 12/29/2024 10:27 AM FIRE FIGHTING EQUIPMENT SPECIALIST Adalimumab quantitative with reflex to antibody, serum Lab Routine Crohn's disease of both small and large intestine with other complication (HCC) 12/29/2024 10:27 AM FIRE FIGHTING EQUIPMENT SPECIALIST Scheduled Orders Name Type Priority Associated Diagnoses [...] Vitamin D 25 hydroxy (12/29/2024 10:27 AM FIRE FIGHTING EQUIPMENT SPECIALIST) Vitamin D 25-OH 89(H) 30 - 80 ng/mL Blood 12/29/2024 10:2 7 AM FIRE FIGHTING EQUIPMENT SPECIALIST 12/29/2024 11:47 AM FIRE FIGHTING EQUIPMENT SPECIALIST Corazon Becerra PRODUCT TESTER F[employer]ERGL[employer] LAB BLOOD ORDERABLES Final Result Performing Organization Address [facility] de Phone Number [facility] Department [place] [address] * Vitamin B12 (12/29/2024 10:27 AM FIRE FIGHTING EQUIPMENT SPECIALIST) Vitamin B12 524 230 - 1,250 pg/mL Blood 12/29/2024 10:2 7 AM FIRE FIGHTING EQUIPMENT SPECIALIST 12/29/2024 11:47 AM FIRE FIGHTING EQUIPMENT SPECIALIST Corazon Becerra PRODUCT TESTER [employer]ER[employer] LAB BLOOD ORDERABLES Final Result Performing Organization Address [facility] de Phone Number [facility] [place] [address] * CRP (acute phase) (12/29/2024 10:27 AM FIRE FIGHTING EQUIPMENT SPECIALIST) CRP 1.0 <=10.0 mg/L Blood 12/29/2024 10:2 7 AM FIRE FIGHTING EQUIPMENT SPECIALIST 12/29/2024 11:47 AM FIRE FIGHTING EQUIPMENT SPECIALIST Corazon Becerra PRODUCT TESTER [employer] LAB BLOOD ORDERABLES Final Result Performing Organization Address [facility] de Phone Number [facility] Department [place] [address] * (ABNORMAL) CBC with auto differential (12/29/2024 10:27 AM FIRE FIGHTING EQUIPMENT SPECIALIST) WBC 6.4 3.8 - 9.9 K/cumm Hgb 13.5 11.9 - 15.5 g/dL [facility] Hct 41.8 35.6 - 45.5 % [facility] Plt 275 150 - 400 K/cumm [facility] MPV 10.3 9.1 - 12.3 fL [facility] RBC 4.33 3.90 - 5.20 M/cumm [facility] MCV 96.5(H) 81.3 - 96.4 fL [facility] MCH 31.2 27.1 - 33.3 pg [facility] MCHC 32.3 32.3 - 35.7 g/dL [facility] RDW CV 14.4 11.1 - 14.9 % [facility] RDW SD 51.3(H) 35.7 - 48.1 fL [facility] NRBC abs 0.00 0.00 - 0.01 K/cumm [facility] Blood 12/29/2024 10:2 7 AM FIRE FIGHTING EQUIPMENT SPECIALIST 12/29/2024 11:47 AM FIRE FIGHTING EQUIPMENT SPECIALIST Corazon Becerra NP LAB BLOOD ORDERABLES Final Result [facility] Department [place] [address] documented in this encounter Visit Diagnoses Diagnosis [...] 2 tablets (2 g total) by mouth rocket assembly operator before breakfast Take 1 tab once daily for the first two weeks, and if tolerating it well, increase to 1 tab twice daily. Patient Reported 03/14/2023 12/29/2024 hyoscyamine (LEVSIN) 0.125 mg tabletIndications:Urina ry Incontinence Take 2 tablets (0.25 mg total) by mouth every 6 (six) hours as needed for cramping or diarrhea Patient Reported 05/31/2022 12/29/2024 documented as of this encounter Care Teams Senior Consumer Insights Consultant Relationship Specialty Start Date End Date Kassandra Hooks NP [address] [facility] DE[place] [address] PCP - General Nurse Practitioner 08/27/24 Lucho Peralta MD [address] [place] [address] [place] [address] Referring Physician Otolaryngology 12/07/23 documented as of this encounter
--- OUTSIDE RECORDS SUMMARY | 2024-12-30 18:51 | XMS_ITS | Encounter Summary ---
Author Organization [facility] Address [address] [place] [address] Phone Care Team Providers Care Assignment Agent Name Role Phone Jesus Gonzalez DO Primary Care Provider Odilon Vyas MD Primary Care Provider [phone] Lucho Peralta MD Unavailable Xiomara Carlos MD Primary Care Provider [phone] Odilon Vyas MD Primary Care Provider [phone] Unknown, Notinfile Primary Care Provider Unavail able Kassandra Hooks NP Primary Care Provider + Encounter Details Date Type Department Care Team (Latest Contact Info) Description 08/16/2015 Orders Only [facility] Chasity Borjas, CARMINA [address] [facility] [address] [place], [place] [id number] Social History Tobacco Use Types Packs/Day Years Used Date Smoking Tobacco: Never Assessed Comments Unknown Sex and Gender Information Value Date Recorded Sex Assigned at Not on file Legal Sex Female 10:13 AM PLASTIC FRAME INSERTER Gender Identity Female 06/12/2023 3:27 PM CDT [...] on filedocumented in this encounter Care Teams Assignment Agent Relationship Specialty Start Date End Date Jesus Gonzalez DO [address] [place] [address] PCP - General Family Medicine 10/26/21 02/07/23 Odilon Vyas MD [address] [place] [address] PCP - General Family Medicine 02/08/23 02/07/24 Xiomara Carlos MD [address] [place] [address] PCP - General Psychiatry 02/08/24 03/23/24 Odilon Vyas MD [address] [place] [address] PCP - General Family Medicine 03/24/24 08/12/24 Unknown, Notinfile PCP - General 08/13/24 08/26/24 Kassandra Hooks, EDWIGE [address] [place] [address] [place] [address] PCP - General Nurse Practitioner 08/27/24 Lucho Peralta MD [address] [facility] [place] [address] Referring Physician Otolaryngology 12/07/23 documented as of this encounter
--- OUTSIDE RECORDS SUMMARY | 2024-12-30 18:51 | XMS_ITS | Encounter Summary ---
Author Organization [facility] Address [address] [place] [address] Phone Care Team Providers Care Design Drafter Chief Name Role Phone Jesus Gonzalez DO Primary Care Provider Odilon Vyas MD Primary Care Provider [phone] Lucho Peralta MD Unavailable Xiomara Carlos MD Primary Care Provider [phone] Odilon Vyas MD Primary Care Provider [phone] Unknown, Notinfile Primary Care Provider Unavail able Kassandra Hooks NP Primary Care Provider + Encounter Details Date Type Department Care Team (Latest Contact Info) Description 05/10/2015 Orders Only [facility] Chasity Borjas, CARMINA [address] [facility] [address] [place], [place] [id number] Social History Tobacco Use Types Packs/Day Years Used Date Smoking Tobacco: Never Assessed Comments Unknown Sex and Gender Information Value Date Recorded Sex Assigned at Not on file Legal Sex Female 10:13 AM CLOTH HANDLER Gender Identity Female 06/12/2023 3:27 PM CDT [...] on filedocumented in this encounter Care Teams Design Drafter Chief Relationship Specialty Start Date End Date Jesus Gonzalez DO [address] [place] [address] PCP - General Family Medicine 10/26/21 02/07/23 Odilon Vyas MD [address] [place] [address] PCP - General Family Medicine 02/08/23 02/07/24 Xiomara Carlos MD [address] [place] [address] PCP - General Psychiatry 02/08/24 03/23/24 Odilon Vyas MD [address] [place] [address] PCP - General Family Medicine 03/24/24 08/12/24 Unknown, Notinfile PCP - General 08/13/24 08/26/24 Kassandra Hooks, EDWIGE [address] [place] [address] [place] [address] PCP - General Nurse Practitioner 08/27/24 Lucho Peralta MD [address] [place] [address] Referring Physician Otolaryngology 12/07/23 documented as of this encounter
--- OUTSIDE RECORDS SUMMARY | 2024-12-30 18:51 | XMS_ITS | Encounter Summary ---
Author Organization [facility] Address [address] [place] [address] Care Team Providers Care Accountant Systems Name Role Phone Odilon Vyas MD Primary Care Provider [phone] Lucho Peralta MD Unavailable Xiomara Carlos MD Primary Care Provider [phone] Odilon Vyas MD Primary Care Provider [phone] Unknown, Notinfile Primary Care Provider Unavail able Kassandra Hooks NP Primary Care Provider + Encounter Details Date Type Department Care Team (Late st Contact Info) Description 01/21/2024 Telephone [facility] [address] [address], [address] [place] [address] Massimo Glynn MD [address] [address] Social History Tobacco Use Types Packs/Day Years [...] on file Legal Sex Female 10:13 AM HOME HEALTH LVN Gender Identity Female 06/12/2023 3:27 PM CDT [...] on filedocumented in this encounter Care Teams Accountant Systems Relationship Specialty Start Date End Date Odilon Vyas MD [address] [place] [address] PCP - General Family Medicine 02/08/23 02/07/24 Xiomara Carlos MD [address] [place] [address] PCP - General Psychiatry 02/08/24 03/23/24 Odilon Vyas MD [address] [place] [address] PCP - General Family Medicine 03/24/24 08/12/24 Unknown, Notinfile PCP - General 08/13/24 08/26/24 Kassandra Hooks NP [address] [facility] [place] [address] PCP - General Nurse Practitioner 08/27/24 Lucho Peralta MD [address] [place] [address] Referring Physician Otolaryngology 12/07/23 documented as of this encounter
--- OUTSIDE RECORDS SUMMARY | 2024-12-30 18:51 | XMS_ITS | Encounter Summary ---
Author Organization [facility] Address [address] [place] [address] Phone Care Team Providers Care Insecticide Mixer Name Role Phone Jesus Gonzalez DO Primary Care Provider Odilon Vyas MD Primary Care Provider [phone] Lucho Peralta MD Unavailable Xiomara Carlos MD Primary Care Provider [phone] Odilon Vyas MD Primary Care Provider [phone] Unknown, Notinfile Primary Care Provider Unavail able Kassandra Hooks NP Primary Care Provider + Encounter Details Date Type Department Care Team (Latest Contact Info) Description 08/17/2015 Orders Only [facility] Chasity Borjas, CARMINA [address] [facility] [address] [place], [place] [id number] Social History Tobacco Use Types Packs/Day Years Used Date Smoking Tobacco: Never Assessed Comments Unknown Sex and Gender Information Value Date Recorded Sex Assigned at Not on file Legal Sex Female 10:13 AM SORT MANAGER Gender Identity Female 06/12/2023 3:27 PM [...] on filedocumented in this encounter Care Teams Insecticide Mixer Relationship Specialty Start Date End Date Jesus Gonzalez DO [address] [place] [address] PCP - General Family Medicine 10/26/21 02/07/23 Odilon Vyas MD [address] [place] [address] PCP - General Family Medicine 02/08/23 02/07/24 Xiomara Carlos MD [address] [place] [address] PCP - General Psychiatry 02/08/24 03/23/24 Odilon Vyas MD [address] [place] [address] PCP - General Family Medicine 03/24/24 08/12/24 Unknown, Notinfile PCP - General 08/13/24 08/26/24 Kassandra Hooks, EDWIGE [address] [place] [address] [place] [address] PCP - General Nurse Practitioner 08/27/24 Lucho Peralta MD [address] [facility] [address] [place] [address] Referring Physician Otolaryngology 12/07/23 documented as of this encounter
--- OUTSIDE RECORDS SUMMARY | 2024-12-30 18:51 | XMS_ITS | Encounter Summary ---
Author Organization [facility] Address [address] [place] [address] Phone Care Team Providers Care Cupola Tapper Helper Name Role Phone Jesus Gonzalez DO Primary Care Provider Odilon Vyas MD Primary Care Provider [phone] Lucho Peralta MD Unavailable Xiomara Carlos MD Primary Care Provider [phone] Odilon Vyas MD Primary Care Provider [phone] Unknown, Notinfile Primary Care Provider Unavail able [...] on file Legal Sex Female 10:13 AM EQUITY MANAGER Gender Identity Female 06/12/2023 3:27 PM [...] on filedocumented in this encounter Care Teams Cupola Tapper Helper Relationship Specialty Start Date End Date Jesus Gonzalez DO [address] [place] [address] PCP - General Family Medicine 10/26/21 02/07/23 Odilon Vyas MD [address] [place] [address] PCP - General Family Medicine 02/08/23 02/07/24 Xiomara Carlos MD [address] [place] [address] PCP - General Psychiatry 02/08/24 03/23/24 Odilon Vyas MD [address] [place] [address] PCP - General Family Medicine 03/24/24 08/12/24 Unknown, Notinfile PCP - General 08/13/24 08/26/24 Kassandra Hooks NP [address] [place] [address] DEPT [place] [address] PCP - General Nurse Practitioner 08/27/24 Lucho Pearlta MD [address] [facility] PROFESSIONAL [facility] [place] [address] Referring Physician Otolaryngology 12/07/23 documented as of this encounter
--- OUTSIDE RECORDS SUMMARY | 2024-12-30 18:51 | XMS_ITS | Encounter Summary ---
Author Organization [facility] Address [address] [place] [address] Phone Care Team Providers Care Commercial Intern Name Role Phone Jesus Gonzalez DO Primary Care Provider Odilon Vyas MD Primary Care Provider [phone] Lucho Peralta MD Unavailable Xiomara Carlos MD Primary Care Provider [phone] Odilon Vyas MD Primary Care Provider [phone] Unknown, Notinfile Primary Care Provider Unavail able Kassandra Hooks NP Primary Care Provider + Encounter Details Date Type Department Care Team (Latest Contact Info) Description 08/21/2015 Orders Only [facility] Chasity Borjas, CARMINA [address] [facility] [address] [place], [place] [id number] Social History Tobacco Use Types Packs/Day Years Used Date Smoking Tobacco: Never Assessed Comments Unknown Sex and Gender Information Value Date Recorded Sex Assigned at Not on file Legal Sex Female 10:13 AM BILINGUAL SPEECH THERAPIST Gender Identity Female 06/12/2023 3:27 PM CDT [...] on filedocumented in this encounter Care Teams Commercial Intern Relationship Specialty Start Date End Date Jesus Gonzalez DO [address] [place] [address] PCP - General Family Medicine 10/26/21 02/07/23 Odilon Vyas MD [address] [place] [address] PCP - General Family Medicine 02/08/23 02/07/24 Xiomara Carlos MD [address] [place] [address] PCP - General Psychiatry 02/08/24 03/23/24 Odilon Vyas MD [address] [place] [address] PCP - General Family Medicine 03/24/24 08/12/24 Unknown, Notinfile PCP - General 08/13/24 08/26/24 Kassandra Hooks NP [address] [place] [address] [place] [address] PCP - General Nurse Practitioner 08/27/24 Lucho Peralta MD [address] [facility] [place] [address] Referring Physician Otolaryngology 12/07/23 documented as of this encounter
--- OUTSIDE RECORDS SUMMARY | 2024-12-30 18:51 | XMS_ITS ---
Author Organization [facility] Address [address] [place] [address] Care Team Providers Care Hedis Nurse Name Role Phone Lucho Peralta MD Unavailable Kassandra Hooks GLOBAL MARKETING OPERATIONS MANAGER Primary Care Provider + Active Problems Problem Noted Date Diagnosed Date Immunodeficiency 10/17/2024 Chronic obstructive pulmonary disease, unspecifi ed 09/08/2024 Hip pain 02/25/2024 Eustachian tube dysfunction, bilateral Chronic sinusitis 01/01/2024 Combined forms of age-related cataract of right eye 12/05/2023 S/P cataract extraction and insertion of intraocular lens, left 11/13/2023 Assessment & Plan (11/13/2023 4:00 PM COOPERATIVE EDUCATION DIRECTOR): PO2W cataract extraction (CE)/posterior chamber intraocular lens [...] (PSC) cataracts both eyes (OU) secondary 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 - We will have MRE from [facility] read by our radiologists. Assessment & Plan (02/06/2023 12:22 PM CDT): MRE on 12/08/22 showed cystic lesions of the pancreas measuring up to 6mm. The patient only had an image of the impression of this report, and we do not have access to the report or study itself. - Patient has given authorization to release MRE report from [facility]. We will also obtain the [...] her abdominal pain on recent MRE at [facility]. We will obtain this study [...] Surgeries: ileocolic resection in [address] [facility] - 6 inches of small bowel [...] traverse the IC valve, prompting ileocolic resection ([facility]) - 6 inches resected. Path incidentally showed [...] traverse the IC valve, prompting ileocolic resection ([facility]) - 6 inches resected. Path incidentally showed [...] traverse the IC valve, prompting ileocolic resection ([facility]) - 6 inches resected. Path incidentally showed [...] dose. Assessment & Plan (10/23/2022 11:27 AM COOPERATIVE EDUCATION DIRECTOR): Diagnosis in 2014. Humira since Mar, 2016. [...] by patient yet. -recent blood work from [facility] reviewed. Noted to have urinalysis, CBC, [...] continue. Assessment & Plan (09/25/2022 10:44 AM COOPERATIVE EDUCATION DIRECTOR): Diagnosis in 2014. Humira since Mar, 2016. 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 Talking to [...] treatments are documented for this patient in [facility]. Treatments may have been administered in [...]
--- OUTSIDE RECORDS SUMMARY | 2024-12-30 18:51 | XMS_ITS | Encounter Summary ---
Author Organization [facility] Address [address] [place] [address] Phone Care Team Providers Care Real Estate Utilization Officer Name Role Phone Jesus Gonzalez DO Primary Care Provider Odilon Vyas MD Primary Care Provider [phone] Lucho Peralta MD Unavailable Xiomara Carlos MD Primary Care Provider [phone] Odilon Vyas MD Primary Care Provider [phone] Unknown, Notinfile Primary Care Provider Unavail able Kassandra Hooks NP Primary Care Provider + Encounter Details Date Type Department Care Team (Latest Contact Info) Description 08/02/2015 Orders Only [facility] CARDIOLOGY Chasity Borjas, CARMINA [address] [facility] [address] [place], [place] [id number] Social History Tobacco Use Types Packs/Day Years Used Date Smoking Tobacco: Never Assessed Comments Unknown Sex and Gender Information Value Date Recorded Sex Assigned at Not on file Legal Sex Female 10:13 AM 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 Gender Identity Female 06/12/2023 3:27 PM CDT [...] on filedocumented in this encounter Care Teams Real Estate Utilization Officer Relationship Specialty Start Date End Date Jesus Gonzalez DO [address] [place] [address] PCP - General Family Medicine 10/26/21 02/07/23 Odilon Vyas MD [address] [place] [id number] PCP - General Family Medicine 02/08/23 02/07/24 Xiomara Carlos MD [address] [place] [address] PCP - General Psychiatry 02/08/24 03/23/24 Odilon Vyas MD [address] [place] [id number] PCP - General Family Medicine 03/24/24 08/12/24 Unknown, Notinfile PCP - General 08/13/24 08/26/24 Kassandra Hooks, EDWIGE [address] [place] [address] [place] [address] PCP - General Nurse Practitioner 08/27/24 Lucho Peralta MD [address] [facility] [address] Referring Physician Otolaryngology 12/07/23 documented as of this encounter
--- OUTSIDE RECORDS SUMMARY | 2024-12-30 18:51 | XMS_ITS | Encounter Summary ---
Author Organization [facility] Healthcare Address [address] [place] [address] Care Team Providers Care Energy Conservation Specialist Name Role Phone Lucho Peralta MD Unavailable Kassandra Hooks NP Primary Care Provider + Encounter Details Date Type Department Care Team (Late st Contact Info) Description 12/29/2024 10:20 AM VIDEO GAMES MECHANIC Lab [facility] Advanced [address] [place] [address] Crohn's disease of both small [...] on file Legal Sex Female 10:13 AM VIDEO GAMES MECHANIC Gender Identity Female 06/12/2023 3:27 PM CDT Sexual Orientation Lesbian 06/12/2023 3: 27 PM CDT documented as of this encounter Plan of Treatment Pending Results Name Type Priority Associated Diagnoses Date /Time Adalimumab quantitative with reflex to antibody, serum Lab Routine Crohn's disease of both small and large intestine with other complication (HCC) 12/29/2024 10:27 AM VIDEO GAMES MECHANIC T-SPOT.TB Blood Microbiology Routine Crohn's disease of both small and large intestine with other complication (HCC) 12/29/2024 10:27 AM VIDEO GAMES MECHANIC Scheduled Procedures Name Priority Associated Diagnoses Date/Ti [...] DIFFERENTIAL AUTO Routine 12/29/2024 10: 27 AM VIDEO GAMES MECHANIC Crohn's disease of both small and large intestine with other complication (HCC) CBC WITH AUTO DIFFERENTIAL Routine 12/29/2024 10:27 AM VIDEO GAMES MECHANIC Crohn's disease of both small and large intestine with other complication (HCC) VITAMIN D 25 HYDROXY Routine 12/29/2024 10:27 AM VIDEO GAMES MECHANIC Crohn's disease of both small and large intestine with other complication (HCC) CRP (ACUTE PHASE) Routine 12/29/2024 10: 27 AM VIDEO GAMES MECHANIC Crohn's disease of both small and large intestine with other complication (HCC) VITAMIN B12 Routine 12/29/2024 10:27 AM VIDEO GAMES MECHANIC Crohn's disease of both small and large intestine with other complication (HCC) documented in this encounter Results * Differential, auto (12/29/2024 10:27 AM VIDEO GAMES MECHANIC) Neutrophil abs 4.1 1.5 - 6.5 K/cumm Imm gran abs 0.0 0.0 - 0.1 K/cumm [facility] Lymphocyte abs 1.5 0.8 - 3.3 K/cumm [facility] Monocyte abs 0.5 0.2 - 0.8 K/cumm [facility] Eosinophil abs 0.2 0.0 - 0.5 K/cumm [facility] Basophil abs 0.1 0.0 - 0.1 K/cumm [facility] Neutrophil pct 64.4 % [facility] Comment: Interpretive Data Percent cell count reference ranges are not reported, since discordance with absolute values may lead to misinterpretation of CBC data. Current Interpretive Data was last revised on 2018. Imm gran pct 0.5 % [facility] Comment: Interpretive Data Percent cell count reference ranges are not reported, since discordance with absolute values may lead to misinterpretation of CBC data. Current Interpretive Data was last revised on 2018. Lymphocyte pct 23.6 % [facility] Comment: Interpretive Data Percent cell count reference ranges are not reported, since discordance with absolute values may lead to misinterpretation of CBC data. Current Interpretive Data was last revised on 2018. Monocyte pct 7.6 % [facility] Comment: Interpretive Data Percent cell count reference ranges are not reported, since discordance with absolute values may lead to misinterpretation of CBC data. Current Interpretive Data was last revised on 2018. Eosinophil pct 3.0 % [facility] Comment: Interpretive Data Percent cell count reference ranges are not reported, since discordance with absolute values may lead to misinterpretation of CBC data. Current Interpretive Data was last revised on 2018. Basophil pct 0.9 % [facility] Comment: Interpretive Data Percent cell count reference ranges are not reported, since discordance with absolute values may lead to misinterpretation of CBC data. Current Interpretive Data was last revised on 2018. Blood 12/29/2024 10:2 7 AM VIDEO GAMES MECHANIC 12/29/2024 11:47 AM VIDEO GAMES MECHANIC Corazon Becerra ETL DATA ARCHITECT LAB BLOOD ORDERABLES Final Result Performing Organization Address City/[facility]/ZIP Co de Phone Number [facility] Department [place] [address] * (ABNORMAL) CBC with auto differential (12/29/2024 10:27 AM VIDEO GAMES MECHANIC) WBC 6.4 3.8 - 9.9 K/cumm Hgb 13.5 11.9 - 15.5 g/dL [facility] Hct 41.8 35.6 - 45.5 % [facility] Plt 275 150 - 400 K/cumm [facility] MPV 10.3 9.1 - 12.3 fL [facility] RBC 4.33 3.90 - 5.20 M/cumm [facility] MCV 96.5(H) 81.3 - 96.4 fL [facility] MCH 31.2 27.1 - 33.3 pg [facility] MCHC 32.3 32.3 - 35.7 g/dL [facility] RDW CV 14.4 11.1 - 14.9 % [facility] RDW SD 51.3(H) 35.7 - 48.1 fL [facility] NRBC abs 0.00 0.00 - 0.01 K/cumm [facility] Blood 12/29/2024 10:2 7 AM VIDEO GAMES MECHANIC 12/29/2024 11:47 AM VIDEO GAMES MECHANIC Corazon Becerra NP LAB BLOOD ORDERABLES Final Result Performing Organization Address [facility]/ZIP Co de Phone Number [facility] [place] [address] * CRP (acute phase) (12/29/2024 10:27 AM VIDEO GAMES MECHANIC) CRP 1.0 <=10.0 mg/L Blood 12/29/2024 10:2 7 AM VIDEO GAMES MECHANIC 12/29/2024 11:47 AM VIDEO GAMES MECHANIC Corazon Becerra ETL DATA ARCHITECT LAB BLOOD ORDERABLES Final Result [facility] [place] [address] * Vitamin B12 (12/29/2024 10:27 AM VIDEO GAMES MECHANIC) Vitamin B12 524 230 - 1,250 pg/mL Blood 12/29/2024 10:2 7 AM VIDEO GAMES MECHANIC 12/29/2024 11:47 AM VIDEO GAMES MECHANIC Corazon Becerra ETL DATA ARCHITECT LAB BLOOD ORDERABLES Final Result Performing Organization Address City/[facility]/ZIP Co de Phone Number [facility] [place] [address] * (ABNORMAL) Vitamin D 25 hydroxy (12/29/2024 10:27 AM VIDEO GAMES MECHANIC) Pathologist [facility] Vitamin D 25-OH 89(H) 30 - 80 ng/mL Blood 12/29/2024 10:2 7 AM VIDEO GAMES MECHANIC 12/29/2024 11:47 AM VIDEO GAMES MECHANIC Corazon Becerra ETL DATA ARCHITECT LAB BLOOD ORDERABLES Final Result Performing Organization Address City/[facility]/[place] [address] documented in this encounter Visit Diagnoses Diagnosis Crohn's disease of both small and large intestine with other complication (HCC) documented in this encounter Care Teams Energy Conservation Specialist Relationship Specialty Start Date End Date Kassandra Hooks NP [address] [facility] [place] [address] PCP - General Nurse Practitioner 08/27/24 Lucho Peralta MD [address] [place] [address] Referring Physician Otolaryngology 12/07/23 documented as of this encounter
--- OUTSIDE RECORDS SUMMARY | 2024-12-30 18:51 | XMS_ITS | Encounter Summary ---
Author Organization [facility] Address [address] [place] [address] Phone Care Team Providers Care Wood Heel Flap Trimmer Name Role Phone Lucho Peralta MD Unavailable Kassandra Hooks NP Primary Care Provider + Encounter Details Date Type Department Care Team (Late st Contact Info) Description 12/30/2024 Telephone [facility] Gastroenterology [address] [facility] 12th [place] [address] [place] [address] Daiana Rodríguez RMA Social History [...] on file Legal Sex Female 10:13 AM ASBESTOS HAZARD ABATEMENT WORKER Gender Identity Female 06/12/2023 3:27 PM CDT Sexual Orientation Lesbian 06/12/2023 3: 27 PM CDT documented as of this encounter Miscellaneous Notes * Telephone Encounter - Daiana Rodríguez RMA - 12/30/2024 3:53 PM CST Pt. called and LM she stated she would prefer to do the imaging 1st then the procedure. STOS HAZARD ABATEMENT WORKER documented in this encounter Plan of Treatment [...] on filedocumented in this encounter Care Teams Wood Heel Flap Trimmer Relationship Specialty Start Date End Date Kassandra Hooks NP 9 [facility] [place] [address] PCP - General Nurse Practitioner 08/27/24 Lucho Peralta MD [address] [facility] [address] Referring Physician Otolaryngology 12/07/23 documented as of this encounter
--- OUTSIDE RECORDS SUMMARY | 2024-12-30 18:51 | XMS_ITS | Continuity of Care Document ---
Author Organization [facility] Address [address] [place] [address] Phone Care Team Providers Care Electrical And Radio Mock Up Mechanic Name Role Phone Lorrie HUYNH, Meeta Unavailable Unavailable Advance Directives Directive Yes / No Effective Date File Name No Information Encounters Encounter Description Practice Location Reason(s) For Visit Diagnoses Date Provider Providers Copied on Encounter [facility], [facility], [id number], [place] tel:[phone] [facility] No Information Lorrie Tim. [address], [place], [id number], [place]. tel:[phone] Family History Family Member Type Diagnosis Age At Onset Mother Problem (finding) malignant neoplasm of l kaitlyner Father Problem (finding) hypertension Payers Payer name Insurance type Covered alliance party ID Authoriza tion(s) [facility] Ppo/EPO BL [id number] Social History Type Description Quantity Date Captured [...]
--- OUTSIDE RECORDS SUMMARY | 2024-12-30 18:51 | XMS_ITS | Clinical Summary ---
Author Organization [facility] Address [address] [place] [address] Care Team Providers Care Email Marketing Assistant Name Role Phone Lucho Peralta MD Unavailable Kassandra Hooks NP Primary Care Provider + Allergies Active Allergy Reactions Criticality Noted Date Comments Amoxicillin-Pot Clavulanate Other (See comments) Low 02/06/2023 Makes Crohn's flare up Sulfamethoxazole-Trime thoprim Other (See comments) Low 02/06/2023 Makes Crohn's flare up Hydrocodone-Acetaminop hen Nausea And Vomiting,Other (See comments) High 05/29/2016 [place] Latex Itching High 08/10/2016 Silver Blisters,Other (See comments) High 07/19/2023 Tegaderm dressing- used with PICC line (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) Sulfa Other [...] 40 mg tabletIndications: Generalized Anxiety Disorder,Started in [place] r/t anxiety and nerves/ chronic pain Take 1 tablet (40 mg total) by mouth nightly 023 Active eszopiclone (LUNESTA) 2 mg tabletIndications: Insomnia Take 1 tablet (2 mg total) by mouth nightly 023 Active cyanocobalamin (Vitamin B-12) 1,000 mcg sublingual tabletIndications: Prevention of Vitamin B12 Deficiency Take 1 tablet (1,000 mcg total) by mouth crimp setter before breakfast No particular days Active turmeric [...] Humira Pen 40 mg/0.8 mL pen injector kitIndications:Professional Skateboarder hn's Disease Inject 0.8 mL (40 mg [...] 2 tablets (2 g total) by mouth crimp setter before breakfast Take 1 tab once daily for the first two weeks, and if tolerating it well, increase to 1 tab twice daily. 60 tablet 11 023 2024 Discontinued(P atient Reported) pantoprazole DR (PROTONIX) 40 mg EC tabletIndications: Stress Ulcer Prophylaxis Take 1 tablet (40 mg total) by mouth crimp setter before breakfast 30 tablet 11 024 2024 [...] 11/13/2023 Assessment & Plan (11/13/2023 4:00 PM COMPUTER TEACHER): PO2W cataract extraction (CE)/posterior chamber intraocular lens [...] (PSC) cataracts both eyes (OU) secondary to extermination supervisor prednisone usage +1D otc readers for distance [...] referral. - We will have MRE from [facility] read by our radiologists. Assessment & Plan (02/06/2023 12:22 PM CDT): MRE on 12/08/22 showed cystic lesions of the pancreas measuring up to 6mm. The patient only had an image of the impression of this report, and we do not have access to the report or study itself. - Patient has given authorization to release MRE report from [facility]. We will also obtain the images and [...] her abdominal pain on recent MRE at [facility]. We will obtain this study and have [...] valve Surgeries: ileocolic resection in 2019 at [facility] - 6 inches of small bowel [...] traverse the IC valve, prompting ileocolic resection ([facility]) - [address] incidentally [...] traverse the IC valve, prompting ileocolic resection ([facility]) - [address] Path incidentally [...] traverse the IC valve, prompting ileocolic resection ([facility]) - 6 inches resected. Path incidentally [...] dose. Assessment & Plan (10/23/2022 11:27 AM COMPUTER TEACHER): Diagnosis in 2014. Humira since Mar, 2016. [...] by patient yet. -recent blood work from [facility] reviewed. Noted to have urinalysis, CBC, [...] continue. Assessment & Plan (09/25/2022 10:44 AM COMPUTER TEACHER): Diagnosis in 2014. Humira since Mar, 2016. [...] today -Talked to her GI group at [facility] Dr Torres on-call, suggested if pt is stable to d/c to be admitted [facility] work her up further. Talking to the [...] Type Department Care Team Description 12/30/2024 Telephone [facility] [address] 12th [place] [address] [place] [address] Etienne Rodríguezice, RMA 12/29/2024 10:20 AM COMPUTER TEACHER Lab [facility] [address] [place] [address] [place] [address] [place] [address] Crohn's disease of both small and large intestine with other complication (HCC) 12/29/2024 9:30 AM COMPUTER TEACHER Office Visit [facility] [address] [facility] 2nd [address] [place] [address] Corazon Becerra NP Crohn's disease of both small and large intestine with other complication (HCC) (Primary Dx); High risk medications (not anticoagulants) long-term use; Malignant neoplasm of appendix (CMS/HCC) (HCC); Pancreas cyst 12/11/2024 Telephone [facility] [address] [place] [address] [place] [address] [place] [address] Anali Melchor 12/05/2024 Telephone [facility] [address] [place] [address] [place] [address] [place] [address] RodríguezDaiana mosley, RMA 11/06/2024 Telephone [facility] [address] [place] [address] [place] [address] [place] [address] Indu Fortune RN 11/05/2024 Telephone [facility] [address] [place] [address] [place] [address] [place] [address] RodríguezEtienne mosleyice, RMA 10/28/2024 Orders Only [facility] [address] [place] [address] [place] [address] [place] [address] RodríguezDaiana mosley, RMA 10/15/2024 2:00 PM COMPUTER TEACHER Office Visit [facility] [address] [facility] [address] [place] [address] Josh Hummel MD Chronic pansinusitis (Primary Dx); Crohn's disease of both small and large intestine with other complication (HCC); Immunodeficiency (HCC) 10/13/2024 4:19 PM COMPUTER TEACHER - 10/13/2024 11:59 PM COMPUTER TEACHER Hospital Encounter [facility] [address] [place] [address] Nicotine dependence, cigarettes, in remission Discharge Disposition: Discharge to home or self care 10/13/2024 Telephone [facility] Pul[facility] [address] [place] [address] Aylin Reilly 10/13/2024 Telephone [facility] [address] 12th [place] [address] [place] [address] Indu Fortune, CARMINA Portal Message Follow Up 10/10/2024 Telephone [facility] [address] [place] [address] Tiara Santiago RN 09/30/2024 Telephone [facility] [address] [place] [address] Massimo Glynn MD [facility] Preprocedure from Last 3 Months Surgical History Surgery Date Site/Laterality Comments COLONOSCOPY 05/11/2020 [place] SINUS SURGERY 09/28/2016 Successful embolization of left [...] Medical History Date Comments Crohn's disease (CMS/HCC) ([facility]) 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 Right sided weakness Epilepsy ([facility]) Migraines Depression Anemia H/O blood clots portal vein Hyperlipidemia Colitis Bronchitis, chronic ([facility]) Low back pain Abnormal heart rhythm Wears dentures Anxiety Acid reflux Nausea & vomiting 03/22/2022 TIA (transient ischemic attack) 2007 Arthritis Osteoporosis Clotting disorder ([facility]/HCC) ([facility]) Cataract Brain concussion Neuromuscular disorder ([facility]) Peptic ulceration Autoimmune disease (CMS/HCC) ([facility]) Mixed conductive and sensori neural hearing [...] file Legal Sex Female 10:13 AM COMPUTER TEACHER Gender Identity Female 06/12/2023 3:27 PM CDT Sexual Orientation Lesbian 06/12/2023 3: 27 PM CDT Obstetrics History Last Filed Vital Signs Vital Sign Reading Time Taken Comments Blood Pressure 102/67 12/29/2024 9:40 AM COMPUTER TEACHER Pulse 99 12/29/2024 9:40 AM COMPUTER TEACHER Temperature 36.8 C (98.2 F) 12/29/2024 9:40 AM COMPUTER TEACHER Respiratory Rate 12 09/18/2024 8:51 AM CDT Oxygen Saturation 99% 12/29/2024 9:40 AM COMPUTER TEACHER Inhaled Oxygen Concentration - - Weight 82.9 kg (182 lb 12.8 oz) 12/29/2024 9:40 AM COMPUTER TEACHER Height 165.1 cm (5' 5 ) 12/29/2024 9:40 AM COMPUTER TEACHER Body Mass Index 30.42 12/29/2024 9:40 AM COMPUTER TEACHER Plan of Treatment Scheduled Procedures Name Priority [...] as needed Medical Devices Implanted Type Area Social Work Administrator Device Identifier Shelf Expiration Date Model / Serial / Lot [employer] Lens Iol Cna0t0.230 Clareon [employer] Autonom Cna0t0.230 - [id number] - [id number] Implanted:Qty: 1 on 10/29/2023 by Melvin San MD at [facility] Left: Eye [employer] [id number] 06/25/2026 CNA0T0.23 0 / [id number] / Procedures Procedure Name Priority Date/Time Associated Diagnosis Comments DIFFERENTIAL AUTO Routine 12/29/2024 10: 27 AM COMPUTER TEACHER Crohn's disease of both small and large intestine with other complication (HCC) CBC WITH AUTO DIFFERENTIAL Routine 12/29/2024 10:27 AM COMPUTER TEACHER Crohn's disease of both small and large intestine with other complication (HCC) CRP (ACUTE PHASE) Routine 12/29/2024 10: 27 AM COMPUTER TEACHER Crohn's disease of both small and large intestine with other complication (HCC) VITAMIN B12 Routine 12/29/2024 10:27 AM COMPUTER TEACHER Crohn's disease of both small and large intestine with other complication (HCC) VITAMIN D 25 HYDROXY Routine 12/29/2024 10:27 AM COMPUTER TEACHER Crohn's disease of both small and large intestine with other complication (HCC) CT LUNG CANCER SCREENING Schedule Routine, Read Routine (OP Routine) 10/13/2024 4:36 PM COMPUTER TEACHER Nicotine dependence, cigarettes, in remission COLONOSCOPY 03/14/2023 11:16 AM CDT from Last 3 Months or Most Recently Relevant to Health Maintenance Results * Differential, auto (12/29/2024 10:27 AM COMPUTER TEACHER) Neutrophil abs 4.1 1.5 - 6.5 K/cumm Imm gran abs 0.0 0.0 - 0.1 K/cumm [facility] Lymphocyte abs 1.5 0.8 - 3.3 K/cumm [facility] Monocyte abs 0.5 0.2 - 0.8 K/cumm [facility] Eosinophil abs 0.2 0.0 - 0.5 K/cumm [facility] Basophil abs 0.1 0.0 - 0.1 K/cumm [facility] Neutrophil pct 64.4 % [facility] Comment: Interpretive Data Percent cell count reference ranges are not reported, since discordance with absolute values may lead to misinterpretation of CBC data. Current Interpretive Data was last revised on 2018. Imm gran pct 0.5 % [facility] Comment: Interpretive Data Percent cell count reference ranges are not reported, since discordance with absolute values may lead to misinterpretation of CBC data. Current Interpretive Data was last revised on 2018. Lymphocyte pct 23.6 % [facility] Comment: Interpretive Data Percent cell count reference ranges are not reported, since discordance with absolute values may lead to misinterpretation of CBC data. Current Interpretive Data was last revised on 2018. Monocyte pct 7.6 % [facility] Comment: Interpretive Data Percent cell count reference ranges are not reported, since discordance with absolute values may lead to misinterpretation of CBC data. Current Interpretive Data was last revised on 2018. Eosinophil pct 3.0 % [facility] Comment: Interpretive Data Percent cell count reference ranges are not reported, since discordance with absolute values may lead to misinterpretation of CBC data. Current Interpretive Data was last revised on 2018. Basophil pct 0.9 % [facility] Comment: Interpretive Data Percent cell count reference ranges are not reported, since discordance with absolute values may lead to misinterpretation of CBC data. Current Interpretive Data was last revised on 2018. Blood 12/29/2024 10:2 7 AM COMPUTER TEACHER 12/29/2024 11:47 AM COMPUTER TEACHER Corazon Becerra NP LAB BLOOD ORDERABLES Final Result [facility] Department of Laboratories [place], [place] [id number] * (ABNORMAL) CBC with auto differential (12/29/2024 10:27 AM COMPUTER TEACHER) WBC 6.4 3.8 - 9.9 K/cumm Hgb 13.5 11.9 - 15.5 g/dL [facility] Hct 41.8 35.6 - 45.5 % [facility] Plt 275 150 - 400 K/cumm [facility] MPV 10.3 9.1 - 12.3 fL [facility] RBC 4.33 3.90 - 5.20 M/cumm [facility] MCV 96.5(H) 81.3 - 96.4 fL [facility] MCH 31.2 27.1 - 33.3 pg [facility] MCHC 32.3 32.3 - 35.7 g/dL [facility] RDW CV 14.4 11.1 - 14.9 % [facility] RDW SD 51.3(H) 35.7 - 48.1 fL [facility] NRBC abs 0.00 0.00 - 0.01 K/cumm [facility] Blood 12/29/2024 10:2 7 AM COMPUTER TEACHER 12/29/2024 11:47 AM COMPUTER TEACHER Corazon Becerra [employer] CONSULTANT LAB BLOOD ORDERABLES Final Result Performing Organization Address City/[facility]/ZIP Co de Phone Number [facility] Department [place] [address] * (ABNORMAL) Vitamin D 25 hydroxy (12/29/2024 10:27 AM COMPUTER TEACHER) Pathologist [facility] Vitamin D 25-OH 89(H) 30 - 80 ng/mL Blood 12/29/2024 10:2 7 AM COMPUTER TEACHER 12/29/2024 11:47 AM COMPUTER TEACHER Corazon Becerra [employer] SOLUT[employer] CONSULTANT LAB BLOOD ORDERABLES Final Result [facility] [place] [address] * CRP (acute phase) (12/29/2024 10:27 AM COMPUTER TEACHER) Pathologist [facility] CRP 1.0 <=10.0 mg/L Blood 12/29/2024 10:2 7 AM COMPUTER TEACHER 12/29/2024 11:47 AM COMPUTER TEACHER Corazon Sternmaggie Becerra [employer]PLE SOLUTIONS CONSULTANT LAB BLOOD ORDERABLES Final Result [facility] [place] [address] * Vitamin B12 (12/29/2024 10:27 AM COMPUTER TEACHER) Vitamin B12 524 230 - 1,250 pg/mL Blood 12/29/2024 10:2 7 AM COMPUTER TEACHER 12/29/2024 11:47 AM COMPUTER TEACHER Corazon Becerra [employer] SOLUT[employer] CONSULTANT LAB BLOOD ORDERABLES Final Result Performing Organization Address [facility] de Phone Number [facility] [place] [address] * CT Lung Cancer Screening (10/13/2024 4:36 PM COMPUTER TEACHER) Anatomical Region Laterality Modality Chest N/A Computed Tomogra phy 10/17/2024 8:06 AM COMPUTER TEACHER Narrative 10/17/2024 8:07 AM COMPUTER TEACHER EXAM DESCRIPTION: CT LUNG CANCER SCREENING REASON [...] David Ortiz M.D. SN: SN Report ID: [id number] Reading Location: [id number] Procedure Note David Ortiz MD - 10/17/2024 [...] by David Ortiz M.D. SN: Report ID: [id number] Reading Location: [id number] Zia Hearn DO IMG CT PROCEDURES Final R esult * COLONOSCOPY (03/14/2023 11:16 AM CDT) Anatomical Region Laterality Modality Other Narrative Procedure Note Montrell Kern MD - 03/14/2023 11:16 AM CDT ENDOSCOPY LAB Patient Name: Danette Thomas Procedure Date: 03/14/2023 11:16 AM Date of : 1970 Admit Type: Outpatient Age: 52 Gender: Female Attending MD: Montrell Kern M.D. Room: [facility] ENDOSCOPY ROOM 05 Note Status: Finalized [...] The scope was passed under direct vision.The [id number] was introduced through the anusand advanced to [...] Advance Directives For more information, please contact: [phone] * Full Code (Latest Code Status on File) Date Activated Date Inactivated Comments 03/14/2023 9:25 AM 03/14/2023 4:21 PM Care Teams Email Marketing Assistant Relationship Specialty Start Date End Date Kassandra Hooks NP [address] [facility] [place] [address] PCP - General Nurse Practitioner 08/27/24 Lucho Peralta MD [address] [place] [address] Referring Physician Otolaryngology 12/07/23
--- OUTSIDE RECORDS SUMMARY | 2024-12-30 18:51 | XMS_ITS | Clinical Summary ---
Author Organization [facility] Address [address] [place] [address] Care Team Providers Care Telegraphic Typewriter Installer Name Role Phone Joanne Dawkins MD Primary Care Provider [phone] Allergies Active Allergy Reactions Criticality Noted Date Comments Amoxicillin-Pot Clavulanate Other (see comment) Low 02/06/2023 Makes Crohn's flare up Hydrocodone-Acetaminop hen Nausea and Vomiting,Other (see comment) High 05/29/2016 [place] Latex Itching High 08/10/2016 Lidocaine Itching Low 08/10/2016 Silver Other (see comment) High 07/19/2023 Tegaderm dressing- used with PICC line (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) Sulfa Antibiotics [...] Crohn's disease 09/14/2024 Factor V deficiency (CMS/HCC [facility]/HCC) 09/14/2024 History of atrial fibrillation 09/14/2024 Chronic uveitis of both eyes 09/14/2024 RLS (restless legs syndrome) 09/14/2024 Encounters Date Type Department Care Team Description 11/06/2024 9:16 PM GAME PRESERVE MANAGER - 11/06/2024 11:59 PM GAME PRESERVE MANAGER Hospital Encounter [facility] [place] [address] Daniel Wilde MD Discharge Disposition: Home or Self Care (Routine Discharge) 11/06/2024 Orders Only [facility] [place] [address] Daniel Wilde MD from Last 3 Months [...] Vaccines (1 of 2) 2021 PHQ-2 (Physician [place]) 11/19/2024 09/12/2024 COVID-19 Vaccine ( - 2023-2 5 season) 2025 Postponed from 07/20 (Patient Refused) Influenza Adult (#1) 2025 Postpon ed from 08/19/2024 (Patient Refused) PHQ-2 (Physician [place]) 09/12/2025 09/12/2024 Pneumococcal Vaccine: Pediat rics (0 [...] BODY FLUID CULTURE Routine 11/06/2024 2:45 PM GAME PRESERVE MANAGER CULTURE, ANAEROBIC Routine 11/06/2024 2: 45 PM GAME PRESERVE MANAGER Chronic pansinusitis CULTURE, FUNGUS W/ STAIN Routine 11/06/2024 2:45 PM GAME PRESERVE MANAGER Chronic pansinusitis from Last 3 Months Results * CULTURE FUNGUS W/ STAIN (11/06/2024 2:45 PM GAME PRESERVE MANAGER) SPEC DESCRIPTION MAXILLARY SINUS,LEFT 11/06/2024 9:23 PM GAME PRESERVE MANAGER [facility] SPECIAL REQUESTS NO SPECIAL REQUEST 11/06/2024 9:23 PM GAME PRESERVE MANAGER [facility] STAIN RESULT: NO YEAST OR FUNGAL ELEMENTS SEEN 11/07/2024 5:44 PM GAME PRESERVE MANAGER [facility] CULTURE RESULT NO FUNGUS ISOLATED AT 4 WEEKS. 12/06/2024 2:40 PM GAME PRESERVE MANAGER [facility] MAXILLARY SINUS STRUCTURE / Unknown 11/06/2024 2:45 PM GAME PRESERVE MANAGER 11/06/2024 9:23 PM GAME PRESERVE MANAGER Daniel Wilde MD MICROBIOLOGY - GENERAL ORDERAB LES Final Result [facility] [address] [place] [address], [place] [phone] * (ABNORMAL) CULTURE, WOUND, W/GRAM STAIN (11/06/2024 2:45 PM GAME PRESERVE MANAGER) SPEC DESCRIPTION MAXILLARY SINUS,LEFT 11/07/2024 6:45 AM GAME PRESERVE MANAGER [facility] SPECIAL REQUESTS NO SPECIAL REQUEST 11/07/2024 6:45 AM GAME PRESERVE MANAGER [facility] GRAM STAIN RESULT MANY WHITE BLOOD CELLS SEEN 11/07/2024 5:43 PM GAME PRESERVE MANAGER [facility] GRAM STAIN RESULT RARE GRAM POSITIVE COCCI 11/07/2024 5:43 PM GAME PRESERVE MANAGER [facility] GRAM STAIN RESULT MANY GRAM POSITIVE RODS 11/07/2024 5:43 PM GAME PRESERVE MANAGER [facility] CULTURE RESULT SPARSE GROWTH OF KLEBSIELLA PNEUMONIAE (A) 11/09/2024 9:46 AM GAME PRESERVE MANAGER [facility] CULTURE RESULT HEAVY GROWTH OF DIPHTHEROIDS SAVING ISOLATE FOR 5 DAYS. CONTACT MICROBIOLOGY DEPARTMENT IF FURTHER WORKUP IS INDICATED. (A) 11/09/2024 9:46 AM GAME PRESERVE MANAGER [facility] MAXILLARY SINUS STRUCTURE / Unknown 11/06/2024 2:45 PM GAME PRESERVE MANAGER 11/07/2024 6:44 AM GAME PRESERVE MANAGER Narrative Organism Antibiotic Method Susceptibility Klebsiella pneumoniae [...] MICROBIOLOGY - GENERAL ORDERAB LES Final Result [facility] [address] [place] [address], [place] [phone] * CULTURE ANAEROBIC (11/06/2024 2:45 PM GAME PRESERVE MANAGER) SPEC DESCRIPTION MAXILLARY SINUS,LEFT 11/06/2024 9:23 PM GAME PRESERVE MANAGER [facility] SPECIAL REQUESTS NO SPECIAL REQUEST 11/06/2024 9:23 PM GAME PRESERVE MANAGER [facility] GRAM STAIN RESULT MANY WHITE BLOOD CELLS SEEN 11/07/2024 5:44 PM GAME PRESERVE MANAGER [facility] GRAM STAIN RESULT RARE GRAM POSITIVE COCCI 11/07/2024 5:44 PM GAME PRESERVE MANAGER [facility] GRAM STAIN RESULT MANY GRAM POSITIVE RODS 11/07/2024 5:44 PM GAME PRESERVE MANAGER [facility] CULTURE RESULT NO ANAEROBES ISOLATED AT 5 DAYS. 11/12/2024 7:13 AM GAME PRESERVE MANAGER [facility] MAXILLARY SINUS STRUCTURE / Unknown 11/06/2024 2:45 PM GAME PRESERVE MANAGER 11/06/2024 9:24 PM GAME PRESERVE MANAGER us Daniel Wilde MD MICROBIOLOGY - GENERAL ORDERAB LES Final Result [facility] [address] [place] [address], [place] [phone] from Last 3 Months Insurance [facility] Care Teams Telegraphic Typewriter Installer Relationship Specialty [place] [id number] [address] PCP - General INTERNAL MEDICINE 09/09/24
--- OUTSIDE RECORDS SUMMARY | 2024-12-30 18:51 | XMS_ITS | Encounter Summary ---
Author Organization [facility] Address [address] [place] [address] Phone Care Team Providers Care Coding Consultant Name Role Phone Jesus Gonzalez DO Primary Care Provider Odilon Vyas MD Primary Care Provider [phone] Lucho Peralta MD Unavailable Xiomara Carlos MD Primary Care Provider [phone] Odilon Vyas MD Primary Care Provider [phone] Unknown, Notinfile Primary Care Provider Unavail able Kassandra Hooks NP Primary Care Provider + Encounter Details Date Type Department Care Team (Latest Contact Info) Description 08/24/2015 Orders Only [facility] CARDI[facility] Chasity Borjas, CARMINA [address] [facility] [address] [place], [place] [id number] Social History Tobacco Use Types Packs/Day Years Used Date Smoking Tobacco: Never Assessed Comments Unknown Sex and Gender Information Value Date Recorded Sex Assigned at Not on file Legal Sex Female 10:13 AM CURTAIN FRAMER Gender Identity Female 06/12/2023 3:27 PM CDT [...] on filedocumented in this encounter Care Teams Coding Consultant Relationship Specialty Start Date End Date Jesus Gonzalez DO [address] [place] [address] PCP - General Family Medicine 10/26/21 02/07/23 Odilon Vyas MD [address] [place] [address] PCP - General Family Medicine 02/08/23 02/07/24 Xiomara Carlos MD [address] [place] [address] PCP - General Psychiatry 02/08/24 03/23/24 Odilon Vyas MD [address] [place] [address] PCP - General Family Medicine 03/24/24 08/12/24 Unknown, Notinfile PCP - General 08/13/24 08/26/24 Kassandra Hooks NP [address] [place] [address] DEPT [place] [address] PCP - General Nurse Practitioner 08/27/24 Lucho Peralta MD [address] [facility] [place] [address] Referring Physician Otolaryngology 12/07/23 documented as of this encounter
--- OUTSIDE RECORDS SUMMARY | 2024-12-30 18:51 | XMS_ITS | Referral Summary ---
Author Organization [facility] Address [address] [place] [address] Care Team Providers Care Calciner Operator Name Role Phone Lucho Peralta MD Unavailable Kassandra Hooks NP Primary Care Provider + Encounters Date Type Department Care Team Description 12/30/2024 Telephone [facility] [address] [place] [address] 12th [place] [address] [place] [id number] Daiana Rodríguez RMA 12/29/2024 10:20 AM HOT SEALING MACHINE OPERATOR Lab [facility] [address] [place] [address] [address] [place] [address] Crohn's disease of both small and large intestine with other complication (HCC) 12/29/2024 9:30 AM HOT SEALING MACHINE OPERATOR Office Visit [facility] [address] [place] [address] 2nd Floor [address] [place] [address] Corazon Becerra, EDWIGE Crohn's disease of both small and large intestine with other complication (HCC) (Primary Dx); High risk medications (not anticoagulants) long-term use; Malignant neoplasm of appendix (CMS/HCC) (HCC); Pancreas cyst 12/11/2024 Telephone [facility] Critical access hospital[facility] 12th [place] [address] [place] [address] Anali Melchor 12/05/2024 Telephone [facility] [address] [place] [address] 12th [place] [address] [place] [address] Daiana Rodríguez, RMA 11/06/2024 Telephone [facility] [address] [facility] 12th [place] [address] [place] [address] Indu Fortune RN 11/05/2024 Telephone [facility] [address] [facility] 12th [place] [address] [place] [address] RodríguezDaiana mosley, RMA 10/28/2024 Orders Only [facility] [address] [facility] 12th [place] [address] [place] [address] RodríguezEtienne mosleyice, RMA 10/15/2024 2:00 PM HOT SEALING MACHINE OPERATOR Office Visit [facility] [address] [facility] Medical Office Building 4 [address] [place] [address] Josh Hummel MD Chronic pansinusitis (Primary Dx); Crohn's disease of both small and large intestine with other complication (HCC); Immunodeficiency (HCC) 10/13/2024 Telephone [facility] [address] [facility] [address] [place] [address] Aylin Reilly 10/13/2024 Telephone [facility] Critical access hospital1 [address] [place] [address] [place] [address] Indu Fortune, CARMINA Portal Message Follow Up 10/13/2024 4:19 PM HOT SEALING MACHINE OPERATOR - 10/13/2024 11:59 PM HOT SEALING MACHINE OPERATOR Hospital Encounter [facility] [address] [place] [address] Nicotine dependence, cigarettes, in remission Discharge Disposition: Discharge to home or self care 10/10/2024 Telephone [facility] 1 [place] [address] Tiara Santiago RN 09/30/2024 Telephone [facility] [address] [facility] [address] [place] [address] Massimo Glynn MD PMC Preprocedure from Last 3 Months Allergies Active Allergy Reactions Criticality Noted Date Comments Amoxicillin-Pot Clavulanate Other (See comments) Low 02/06/2023 Makes Crohn's flare up Sulfamethoxazole-Trime thoprim Other (See comments) Low 02/06/2023 Makes Crohn's flare up Hydrocodone-Acetaminop hen Nausea And Vomiting,Other (See comments) High 05/29/2016 [place] Latex Itching High 08/10/2016 Silver Blisters,Other (See comments) High 07/19/2023 Tegaderm dressing- used with PICC line (joint terminal attack controller is when she had reaction) Sulfa Other [...] 40 mg tabletIndications: Generalized Anxiety Disorder,Started in [place] r/t anxiety and nerves/ chronic pain Take 1 tablet (40 mg total) by mouth nightly 023 Active eszopiclone (LUNESTA) 2 mg tabletIndications: Insomnia Take 1 tablet (2 mg total) by mouth nightly 023 Active cyanocobalamin (Vitamin B-12) 1,000 mcg sublingual tabletIndications: Prevention of Vitamin B12 Deficiency Take 1 tablet (1,000 mcg total) by mouth lead data entry operator before breakfast No particular days Active turmeric [...] Humira Pen 40 mg/0.8 mL pen injector kitIndications:Wrecker Driver hn's Disease Inject 0.8 mL (40 mg [...] 2 tablets (2 g total) by mouth lead data entry operator before breakfast Take 1 tab once daily for the first two weeks, and if tolerating it well, increase to 1 tab twice daily. 60 tablet 11 023 2024 Discontinued(P atient Reported) pantoprazole DR (PROTONIX) 40 mg EC tabletIndications: Stress Ulcer Prophylaxis Take 1 tablet (40 mg total) by mouth lead data entry operator before breakfast 30 tablet 11 024 2024 [...] 11/13/2023 Assessment & Plan (11/13/2023 4:00 PM HOT SEALING MACHINE OPERATOR): PO2W cataract extraction (CE)/posterior chamber intraocular lens [...] (PSC) cataracts both eyes (OU) secondary to retirement prednisone usage +1D otc readers for distance [...] referral. - We will have MRE from [facility] read by our radiologists. Assessment & Plan (02/06/2023 12:22 PM CDT): MRE on 12/08/22 showed cystic lesions of the pancreas measuring up to 6mm. The patient only had an image of the impression of this report, and we do not have access to the report or study itself. - Patient has given authorization to release MRE report from [facility]. We will also obtain [...] her abdominal pain on recent MRE at [facility]. We will obtain this [...] the IC valve, prompting ileocolic resection ([facility]) - 6 [address] resected. Path incidentally [...] the IC valve, prompting ileocolic resection ([facility]) - 6 inches resected. Path incidentally [...] the IC valve, prompting ileocolic resection ([facility]) - 6 inches resected. Path incidentally [...] dose. Assessment & Plan (10/23/2022 11:27 AM HOT SEALING MACHINE OPERATOR): Diagnosis in 2014. Humira since Mar, 2016. [...] by patient yet. -recent blood work from [facility] reviewed. Noted to have urinalysis, CBC, [...] continue. Assessment & Plan (09/25/2022 10:44 AM HOT SEALING MACHINE OPERATOR): Diagnosis in 2014. Humira since Mar, 2016. [...] Crohn's as above Malignant neoplasm of appendix ([facility]) 022 Crohn's disease of colon with rectal bleeding ([facility]) 02/18/2019 Overview (07/26/2022): Last Assessment & Plan: [...] today -Talked to her GI group at [facility] Dr Torres on-call, suggested if pt is stable to d/c to [facility] work her up further. Talking to the [...] on file Legal Sex Female 10:13 AM HOT SEALING MACHINE OPERATOR Gender Identity Female 06/12/2023 3:27 PM CDT Sexual Orientation Lesbian 06/12/2023 3: 27 PM CDT Last Filed Vital Signs Vital Sign Reading Time Taken Comments Blood Pressure 102/67 12/29/2024 9:40 AM HOT SEALING MACHINE OPERATOR Pulse 99 12/29/2024 9:40 AM HOT SEALING MACHINE OPERATOR Temperature 36.8 C (98.2 F) 12/29/2024 9:40 AM HOT SEALING MACHINE OPERATOR Respiratory Rate 12 09/18/2024 8:51 AM CDT Oxygen Saturation 99% 12/29/2024 9:40 AM HOT SEALING MACHINE OPERATOR Inhaled Oxygen Concentration - - Weight 82.9 kg (182 lb 12.8 oz) 12/29/2024 9:40 AM HOT SEALING MACHINE OPERATOR Height 165.1 cm (5' 5 ) 12/29/2024 9:40 AM HOT SEALING MACHINE OPERATOR Body Mass Index 30.42 12/29/2024 9:40 AM HOT SEALING MACHINE OPERATOR Plan of Treatment Scheduled Procedures Name Priority [...] as needed Medical Devices Implanted Type Area Outpatient Clerk Device Identifier Shelf Expiration Date Model / Serial / Lot [employer] Lens Iol Cna0t0.230 [employer]on [employer] Cna0t0.230 - [id number] - [id number] Implanted:Qty: 1 on 10/29/2023 by Melvin San MD at [facility] Left: Eye [employer] [id number] 06/25/2026 CNA0T0.23 0 / [id number] / Procedures Procedure Name Priority Date/Time Associated Diagnosis Comments DIFFERENTIAL AUTO Routine 12/29/2024 10: 27 AM HOT SEALING MACHINE OPERATOR Crohn's disease of both small and large intestine with other complication (HCC) CBC WITH AUTO DIFFERENTIAL Routine 12/29/2024 10:27 AM HOT SEALING MACHINE OPERATOR Crohn's disease of both small and large intestine with other complication (HCC) CRP (ACUTE PHASE) Routine 12/29/2024 10: 27 AM HOT SEALING MACHINE OPERATOR Crohn's disease of both small and large intestine with other complication (HCC) VITAMIN B12 Routine 12/29/2024 10:27 AM HOT SEALING MACHINE OPERATOR Crohn's disease of both small and large intestine with other complication (HCC) VITAMIN D 25 HYDROXY Routine 12/29/2024 10:27 AM HOT SEALING MACHINE OPERATOR Crohn's disease of both small and large intestine with other complication (HCC) CT LUNG CANCER SCREENING Schedule Routine, Read Routine (OP Routine) 10/13/2024 4:36 PM HOT SEALING MACHINE OPERATOR Nicotine dependence, cigarettes, in remission COLONOSCOPY 03/14/2023 11:16 AM CDT from Last 3 Months or Most Recently Relevant to Health Maintenance Results * Differential, auto (12/29/2024 10:27 AM HOT SEALING MACHINE OPERATOR) Neutrophil abs 4.1 1.5 - 6.5 K/cumm Imm gran abs 0.0 0.0 - 0.1 K/cumm [facility] Lymphocyte abs 1.5 0.8 - 3.3 K/cumm [facility] Monocyte abs 0.5 0.2 - 0.8 K/cumm [facility] Eosinophil abs 0.2 0.0 - 0.5 K/cumm [facility] Basophil abs 0.1 0.0 - 0.1 K/cumm [facility] Neutrophil pct 64.4 % [facility] Comment: Interpretive Data Percent cell count reference ranges are not reported, since discordance with absolute values may lead to misinterpretation of CBC data. Current Interpretive Data was last revised on 2018. Imm gran pct 0.5 % [facility] Comment: Interpretive Data Percent cell count reference ranges are not reported, since discordance with absolute values may lead to misinterpretation of CBC data. Current Interpretive Data was last revised on 2018. Lymphocyte pct 23.6 % [facility] Comment: Interpretive Data Percent cell count reference ranges are not reported, since discordance with absolute values may lead to misinterpretation of CBC data. Current Interpretive Data was last revised on 2018. Monocyte pct 7.6 % [facility] Comment: Interpretive Data Percent cell count reference ranges are not reported, since discordance with absolute values may lead to misinterpretation of CBC data. Current Interpretive Data was last revised on 2018. Eosinophil pct 3.0 % [facility] Comment: Interpretive Data Percent cell count reference ranges are not reported, since discordance with absolute values may lead to misinterpretation of CBC data. Current Interpretive Data was last revised on 2018. Basophil pct 0.9 % [facility] Comment: Interpretive Data Percent cell count reference ranges are not reported, since discordance with absolute values may lead to misinterpretation of CBC data. Current Interpretive Data was last revised on 2018. Blood 12/29/2024 10:2 7 AM HOT SEALING MACHINE OPERATOR 12/29/2024 11:47 AM HOT SEALING MACHINE OPERATOR Corazon Becerra NP LAB BLOOD ORDERABLES Final Result [facility] Department [place] [address] * (ABNORMAL) CBC with auto differential (12/29/2024 10:27 AM HOT SEALING MACHINE OPERATOR) WBC 6.4 3.8 - 9.9 K/cumm Hgb 13.5 11.9 - 15.5 g/dL [facility] Hct 41.8 35.6 - 45.5 % [facility] Plt 275 150 - 400 K/cumm [facility] MPV 10.3 9.1 - 12.3 fL [facility] RBC 4.33 3.90 - 5.20 M/cumm [facility] MCV 96.5(H) 81.3 - 96.4 fL [facility] MCH 31.2 27.1 - 33.3 pg [facility] MCHC 32.3 32.3 - 35.7 g/dL [facility] RDW CV 14.4 11.1 - 14.9 % [facility] RDW SD 51.3(H) 35.7 - 48.1 fL [facility] NRBC abs 0.00 0.00 - 0.01 K/cumm [facility] Blood 12/29/2024 10:2 7 AM HOT SEALING MACHINE OPERATOR 12/29/2024 11:47 AM HOT SEALING MACHINE OPERATOR Corazon Becrera PACKAGING ASSOCIATE LAB BLOOD ORDERABLES Final Result Performing Organization Address [facility] Co de Phone Number [facility] Department [place] [address] * (ABNORMAL) Vitamin D 25 hydroxy (12/29/2024 10:27 AM HOT SEALING MACHINE OPERATOR) Vitamin D 25-OH 89(H) 30 - 80 ng/mL Blood 12/29/2024 10:2 7 AM HOT SEALING MACHINE OPERATOR 12/29/2024 11:47 AM HOT SEALING MACHINE OPERATOR Corazon Becerra PACKAGING ASSOCIATE LAB BLOOD ORDERABLES Final Result Performing Organization Address [facility] Co de Phone Number [facility] Department [place] [address] * CRP (acute phase) (12/29/2024 10:27 AM HOT SEALING MACHINE OPERATOR) CRP 1.0 <=10.0 mg/L Blood 12/29/2024 10:2 7 AM HOT SEALING MACHINE OPERATOR 12/29/2024 11:47 AM HOT SEALING MACHINE OPERATOR Corazon Becerra PACKAGING ASSOCIATE LAB BLOOD ORDERABLES Final Result Performing Organization Address [facility] Co de Phone Number [facility] Department [place] [address] * Vitamin B12 (12/29/2024 10:27 AM HOT SEALING MACHINE OPERATOR) Vitamin B12 524 230 - 1,250 pg/mL Blood 12/29/2024 10:2 7 AM HOT SEALING MACHINE OPERATOR 12/29/2024 11:47 AM HOT SEALING MACHINE OPERATOR Corazon Becerra NP LAB BLOOD ORDERABLES Final Result [facility] Department [place] [address] * CT Lung Cancer Screening (10/13/2024 4:36 PM HOT SEALING MACHINE OPERATOR) Anatomical Region Laterality Modality Chest N/A Computed Tomogra phy 10/17/2024 8:06 AM HOT SEALING MACHINE OPERATOR Narrative 10/17/2024 8:07 AM HOT SEALING MACHINE OPERATOR EXAM DESCRIPTION: CT LUNG CANCER SCREENING REASON [...] David Diana Ortiz M.D. SN: Report ID: [id number] Reading Location: [id number] Procedure Note David Ortiz MD - 10/17/2024 [...] by David Ortiz M.D. SN: Report ID: [id number] Reading Location: [id number] Zia Hearn DO IMG CT PROCEDURES Final R esult * COLONOSCOPY (03/14/2023 11:16 AM CDT) Anatomical Region Laterality Modality Other Narrative Procedure Note Montrell Kern MD - 03/14/2023 11:16 AM CDT ENDOSCOPY LAB Patient Name: Danette Thomas Procedure Date: 03/14/2023 11:16 AM Date of : 1970 Admit Type: Outpatient Age: 52 Gender: Female Attending MD: Montrell Kern M.D. Room: [facility] ENDOSCOPY ROOM 05 Note Status: Finalized [...] The scope was passed under direct vision.The [id number] was introduced through the anusand advanced to [...] Advance Directives For more information, please contact: [phone] * Full Code (Latest Code Status on File) Date Activated Date Inactivated Comments 03/14/2023 9:25 AM 03/14/2023 4:21 PM Care Teams Calciner Operator Relationship Specialty Start Date End Date Kassandra Hooks NP [address] [facility] [place] [address] PCP - General Nurse Practitioner 08/27/24 Lucho Peralta MD [address] [place] [address] Referring Physician Otolaryngology 12/07/23
--- OUTSIDE RECORDS SUMMARY | 2024-12-30 18:51 | XMS_ITS | Encounter Summary ---
Author Organization [facility] Healthcare Address [address] [place] [address] Care Team Providers Care Vice President Of Academic Affairs Name Role Phone Odilon Vyas MD Primary Care Provider + [phone] Lucho Peralta MD Unavailable Xiomara Carlos MD Primary Care Provider [phone] Odilon Vyas MD Primary Care Provider [phone] Unknown, Notinfile Primary Care Provider Unavail able Kassandra Hooks NP Primary Care Provider + Encounter Details Date Type Department Care Team (Late st Contact Info) Description 01/18/2024 Telephone [facility] [address] [address], [address] [place] [address] Massimo Glynn MD [address] [address] Social History Tobacco Use Types Packs/Day Years [...] on file Legal Sex Female 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 DEPT [place] [address] PCP - General Nurse Practitioner 08/27/24 Lucho Peralta MD [address] [place] [address] Referring Physician Otolaryngology 12/07/23 documented as of this encounter
--- OUTSIDE RECORDS SUMMARY | 2024-12-30 18:52 | XMS_ITS | Encounter Summary ---
Author Organization [facility] Address [address] [place] [address] Phone Care Team Providers Care Plain Goods Hemmer Name Role Phone Lucho Peralta MD Unavailable Odilon Vyas MD Primary Care Provider [phone] Unknown, Notinfile Primary Care Provider Unavail able Kassandra Hooks NP Primary Care Provider + Encounter Details Date Type Department Care Team (Late st Contact Info) Description 06/24/2024 Orders Only [facility] Gastroenterology [facility] Medical Office Building [address], [address] [place] [address] Irma Dillon MD [address] [place] [address] Social History Tobacco Use Types [...] on file 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 Gender Identity Female 06/12/2023 3:27 PM [...] on filedocumented in this encounter Care Teams Plain Goods Hemmer Relationship Specialty Start Date End Date Odilon Vyas MD [address] [place] [address] PCP - General Family Medicine 03/24/24 08/12/24 Unknown, Notinfile PCP - General 08/13/24 08/26/24 Kassandra Hooks NP [address] [place] [address] [place] [address] PCP - General Nurse Practitioner 08/27/24 Lucho Peralta MD [address] [facility] [place] [address] Referring Physician Otolaryngology 12/07/23 documented as of this encounter
[2024-12-30 18:58] LABS: Basophils Absolute Auto 0.03 K/mm3 (0.00-0.10); Basophils Percent Auto 0.4 % (0.0-1.0); Eosinophils Absolute Auto 0.12 K/mm3 (0.02-0.50); Eosinophils Percent Auto 1.7 % (1.0-6.0); Hematocrit 37.9 % (35.0-49.0); Hemoglobin 12.6 g/dL (12.0-15.0); Immature Granulocyte Absolute 0.02 K/mm3 (0.00-0.00); Immature Granulocyte Percent A 0.3 % (0.0-0.0); Lymphocytes Absolute Auto 2.25 K/mm3 (1.10-4.50); Lymphocytes Percent Auto 32.5 % (18.0-42.0); Mean Corpuscular HGB Conc 33.2 g/dL (32-36); Mean Corpuscular Hemoglobin 30.7 pg (27.0-31.0); Mean Corpuscular Volume 92.4 fL (78.0-102.0); Mean Platelet Volume 9.9 fl (9.2-11.8); Monocytes Absolute Auto 0.46 K/mm3 (0.10-0.90); Monocytes Percent Auto 6.6 % (2.0-11.0); Neutrophils Absolute Auto 4.04 K/mm3 (1.70-7.20); Neutrophils Percent Auto 58.5 % (50.0-70.0); Platelet Count Result 252 K/mm3 (150-420); White Blood Count 6.9 K/mm3 (4.8-10.8)
[2024-12-30] MEDS: ONDANSETRON INJ 4 MG/2 ML VIAL IV PUSH (18:58)
[2024-12-30] MEDS: MORPHINE SULFATE (*CRX) 4 MG/ML INJ IV PUSH (18:59)
[2024-12-30] MEDS: SODIUM CHLORIDE 0.9% IV 2,000 ML 999 ML IV CONT (19:01)
--- NOTE | 2024-12-30 19:08 | PC.NURSE ---
PT IS UPSET AND STATING NO ONE IS HELPING ME I AM GOING TO LEAVE, PT HAS PULLED OFF MONITOR, BP CUFF AND IS WALKING AROUND EXAM ROOM RN ARRIVES IN ROOM AND LAB IS EXITING ROOM. RN ARRIVES WITH MEDICATIONS AND IVF PT DOES RETURN TO STRETCHER. IS AT BEDSIDE. IV SITE ESTABLISHED, MEDICATIONS GIVEN AND IVF INFUSING WITHOUT DIFFICULTY. REPORT TO CARMINA BELL.
[2024-12-30 19:13] LABS: Prothrombin Time 10.7 Seconds (9.50-12.1)
[2024-12-30 19:14] LABS: Alanine Aminotransferase 58 U/L (14-59); Albumin Level 3.5 g/dL (3.4-5.0); Alkaline Phosphatase 81 U/L (46-116); Anion Gap 12 mmol/L (4-12); Aspartate Amino Transferase 30 U/L (15-37); Bilirubin,Total 0.7 mg/dL (0.00-1.00); Blood Urea Nitrogen 9 mg/dL (7-18); Calcium 9.3 mg/dL (8.5-10.1); Carbon Dioxide 23 mmol/L (21-32); Chloride 103 mmol/L (98-108); Estimated Glomerular Filt Rate > 60; Glucose 97 mg/dL (70-99); Lipase 25 U/L (16-77); Osmolality Calculated 284 mOsm/kg (285-295); Potassium 4.2 mmol/L (3.5-5.1); Sodium 138 mmol/L (136-145); Total Protein 7.2 g/dL (6.4-8.2)
[2024-12-30 19:21] LABS: Lactic Acid Reflex 1.1 mmol/L (0.4-2.0)
[2024-12-30 19:45] LABS: Add Urine Microscopic? NO; Appearance Urine Clear (Clear); Bilirubin Urine Negative (Negative); Blood Urine Trace-intact (Negative); Color Urine Light Yellow (Yellow); Glucose Urine UA Negative (Negative); Ketones Urine Negative (Negative); Leukocyte Esterase Ur Negative LEU/UL (Negative); Nitrate Urine Negative (Negative); Protein Urine Negative (Negative); Urobilinogen Urine 0.2 mg/dL (0.2-1.0)
--- NOTE | 2024-12-30 20:15 | PC.NURSE ---
ERP aware of pt's vital signs. No new orders.
[2024-12-30 20:19] LABS: SARS-CoV-2 RNA PCR Negative (Negative)
[2024-12-30 20:20] LABS: Influenza A QL RT-PCR Negative (Negative); Influenza B QL RT-PCR Negative (Negative); RSV RNA, RT-PCR Negative (Negative)
--- NOTE | 2024-12-30 20:55 | PC.NURSE ---
Addendum entered by Nicole Shine RN 12/31/24 00:43: Time of note entered incorrectly. Time should have been 2134 Original Note: ERP gave pt discharge instructions and left pt's room. Pt yelled out of the door to her room that she needed her IV removed. This RN was just approaching her desk and told pt that she would be in to remove the IV in just a minute as I was finishing up something for another pt. The patient yelled that she would just take the IV out herself and slammed the door to her room shut. She then proceeded to start going through the drawers in her room looking for supplies. I immediately went to pt's room and told her that I needed to remove her IV. As I turned to grab the supplies, the pt began removing the adhesive around her IV and tried to pull the IV out. I told her that I was getting the supplies to remove it and would finish the removal. Pt started yelling at me and said that I wasn't fast enough and that she could just do it herself. I told her that she must follow our procedures if she was going to come to the ER. Pt again started yelling at me. I told her that she could not yell at me. She told me that I needed to stop telling her what to do. I told her that for safety reasons, she has to follow our rules. I finished removing the pt's IV and placed a 4x4 and tape over the area. I left pt's room to retrieve her discharge packet. As I was getting them off of my desk, the patient walked by, heading to the exit. I said that I had her discharge papers for her to sign and packet to take home. She gave me a hateful look and continued out the ER door. Pt refused to stop to sign papers.
== END 2024-12-30 21:40 | disposition home or self-care (01) ==
PROVIDERS: Emergency Provider Emergency Medicine; PCP Nurse Practitioner Family
DX: R10.30 Lower abdominal pain, unspecified (principal); E11.9 Type 2 diabetes mellitus without complications; Z86.73 Personal history of transient ischemic attack (TIA), and cerebral infarction without residual deficits; Z87.891 Personal history of nicotine dependence; Z20.822 Contact with and (suspected) exposure to COVID-19
CPT/HCPCS: 36415; 74177; 80053; 81003; 83605; 83690; 85025; 85610; 85730; 87637; 96361; 96374; 96375; 99284; J2270; J2405; J7030; Q9967

== ENCOUNTER 2025-03-03 15:48 | Outpatient (CLI) | payer BC, SELFPAY ==
--- NOTE | ~2025-03-03 | US_ITS ---
Pelvic ultrasound. Clinical History: Leiomyoma of uterus Technique: Realtime transabdominal scanning of the pelvis was performed. Color flow Doppler and Doppl er spectral analysis were performed. Findings: The uterus is anteverted. The endometrial stripe has a thickness of 6 mm. Uterus is hetero geneous in appearance without definite discrete focal mass. The right ovary measures 2.6 x 2.1 x 3.1 cm. No significant right ovarian or adnexal mass is seen. The left ovary is not visualized. No significant left ovarian or adnexal mass is seen. There is no evidence of free fluid in the cul de sac. Impression: Diffusely heterogeneous appearance of the uterus without definite discrete focal mass. Poorly delinea fred leiomyomas are a consideration. Left ovary not seen. Reviewed, dictated and finalized at [facility]. Impression: Diffusely heterogeneous appearance of the uterus without definite discrete foca l mass. Poorly delineated leiomyomas are a consideration. Left ovary not seen.
== END 2025-03-03 15:49 | disposition home or self-care (01) ==
PROVIDERS: PCP Nurse Practitioner Family; Visit Provider Nurse Practitioner Family
DX: N85.8 Other specified noninflammatory disorders of uterus (principal); D25.9 Leiomyoma of uterus, unspecified
CPT/HCPCS: 76856

== ENCOUNTER 2025-04-03 19:23 | Outpatient (NON) | payer BC, SELFPAY ==
--- OUTSIDE RECORDS SUMMARY | 2025-04-03 19:28 | XMS_ITS | Encounter Summary ---
Author Organization [facility] Address [address] [place] [address] Phone Care Team Providers Care Operations Research Group Manager Name Role Phone Jesus Gonzalez DO Primary Care Provider Odilon Vyas MD Primary Care Provider [phone] Lucho Peralta MD Unavailable Xiomara Carlos MD Primary Care Provider [phone] Odilon Vyas MD Primary Care Provider + [phone] Unknown, Notinfile Primary Care Provider Unavail able Kassandra Hooks NP Primary Care Provider + Encounter Details Date Type Department Care Team (Latest Contact Info) Description 08/02/2015 Orders Only 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 Gender Identity Female 06/12/2023 3:27 PM [...] RADIOLOGY/IMAGING (08/02/2015) Anatomical Region Laterality Modality Other Chasity Borjas RN Final Result documented in this encounter Visit Diagnoses Not on filedocumented in this encounter Care Teams Operations Research Group Manager Relationship Specialty Start Date End Date Jesus Gonzalez DO [address] [place] [address] PCP - General Family Medicine 10/26/21 02/07/23 Odilon Vyas MD [address] [place] [address] PCP - General Family Medicine 02/08/23 02/07/24 Xiomara Carlos MD [address] [place] [address] PCP - General Psychiatry 02/08/24 03/23/24 Odilon Vyas MD [address] [place] [address] PCP - General Family Medicine 03/24/24 08/12/24 Unknown, Notinfile PCP - General 08/13/24 08/26/24 Kassandra Hooks NP PCP - General Nurse Practitioner 08/27/24 Lucho Peralta MD [address] [facility] [place] [address] Referring Physician Otolaryngology 12/07/23 documented as of this encounter
--- OUTSIDE RECORDS SUMMARY | 2025-04-03 19:28 | XMS_ITS | Encounter Summary ---
Author Organization [facility] Address [address] [place] [address] Phone Care Team Providers Care Disaster Response Director Name Role Phone Jesus Gonzalez DO Primary Care Provider Odilon Vyas MD Primary Care Provider [phone] Lucho Peralta MD Unavailable Xiomara Carlos MD Primary Care Provider [phone] Odilon Vyas MD Primary Care Provider + [phone] Unknown, Notinfile Primary Care Provider Unavail able Kassandra Hooks NP Primary Care Provider + Encounter Details Date Type Department Care Team (Latest Contact Info) Description 08/24/2015 Orders Only [facility] CARDIOLOGY Chasity Borjas, CARMINA [address] [facility] [address] [place], [place] [id number] Social History Tobacco Use Types Packs/Day Years Used Date Smoking Tobacco: Never Assessed Comments Unknown Sex and Gender Information Value Date Recorded Sex Assigned at Not on file 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 Gender Identity Female 06/12/2023 3:27 PM CDT [...] on filedocumented in this encounter Care Teams Disaster Response Director Relationship Specialty Start Date End Date Jesus Gonzalez DO [address] [place] [address] PCP - General Family Medicine 10/26/21 02/07/23 Odilon Vyas MD [address] [place] [address] PCP - General Family Medicine 02/08/23 02/07/24 Xiomara Carlos MD [address] [place] [address] PCP - General Psychiatry 02/08/24 03/23/24 Odilon Vyas MD [address] [place] [address] PCP - General Family Medicine 03/24/24 08/12/24 Unknown, Notinfile PCP - General 08/13/24 08/26/24 Kassandra Hooks NP PCP - General Nurse Practitioner 08/27/24 Lucho Peralta MD [address] [place] [address] [place] [address] Referring Physician Otolaryngology 12/07/23 documented as of this encounter
--- OUTSIDE RECORDS SUMMARY | 2025-04-03 19:28 | XMS_ITS | Clinical Summary ---
Author Organization [facility] Address [address] [facility] [place] [address] Care Team Providers Care Lamp Decorator Name Role Phone Jesus Gonzalez DO Primary Care Provider [phone] Allergies Active Allergy Reactions Criticality Noted Date Comments Hydrocodone-Acetaminop hen Other (See Comments),Nausea and Vomiting High 05/29/2016 [place] Latex Itching High 08/10/2016 Lidocaine-Transparent Dressing Itching [...] Encounters Date Type Department Care Team Description 03/03/2025 External Device Data [facility] ABSTRACTION Provider, Abstract 02/17/2025 External Device Data [facility] ABSTRACTION Provider, Abstract 01/07/2025 External Device Data [facility] ABSTRACTION Provider, Abstract 01/07/2025 External Device Data [facility] ABSTRACTION Provider, Abstract [...] on file 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 Gender Identity Not on file Sexual Orientation [...] of 3 - 19+ 3-dose series) 1990 HPV/Cotest (21-29) 1992 CERVICAL CANCER SCREENING 2001 HPV/Cotest (30-65) 2001 PAP SMEAR 2001 BREAST CANCER SCREENING 2011 ZOSTER VACCINE (1 of 2) 2021 INFLUENZA VACCINE (#1) 2024 COLORECTAL SCREENING Discontinued 03/14/2023, 03/14/20 23 Colorectal Cancer Screening Discontinued FIT-DNA Q 3 years Discontinued FIT/FOBT Q 1 year Discontinued Flex Sig/CT Colonography Q 5 years [address] [place] [address] [place] [address] BLUE PREFERRED Care Teams Lamp Decorator Relationship Specialty Start Date End Date Jesus Gonzalez DO [address] [id number] PCP - General Family Practice 01/17/22
--- OUTSIDE RECORDS SUMMARY | 2025-04-03 19:28 | XMS_ITS | Encounter Summary ---
Author Organization [facility] Address [address] [place] [address] Phone Care Team Providers Care Surveyor'S Assistant Name Role Phone Jesus Gonzalez DO Primary Care Provider Odilon Vyas MD Primary Care Provider [phone] Lucho Peralta MD Unavailable Xiomara Carlos MD Primary Care Provider [phone] Odilon Vyas MD Primary Care Provider + [phone] Unknown, Notinfile Primary Care Provider Unavail able Kassandra Hooks NP Primary Care Provider + Encounter Details Date Type Department Care Team (Latest Contact Info) Description 08/21/2015 Orders Only [facility] CARDIOLOGY Chasity Borjas, CARMINA [address] [facility] [address] [place], [place] [phone] Social History Tobacco Use Types Packs/Day Years Used Date Smoking Tobacco: Never Assessed Comments Unknown Sex and Gender Information Value Date Recorded Sex Assigned at Not on file 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 Gender Identity Female 06/12/2023 3:27 PM CDT [...] on filedocumented in this encounter Care Teams Surveyor'S Assistant Relationship Specialty Start Date End Date Jesus Gonzalez DO [address] [place] [address] PCP - General Family Medicine 10/26/21 02/07/23 Odilon Vyas MD [address] [place] [address] PCP - General Family Medicine 02/08/23 02/07/24 Xiomara Carlos MD [address] [place] [address] PCP - General Psychiatry 02/08/24 03/23/24 Odilon Vyas MD [address] [place] [address] PCP - General Family Medicine 03/24/24 08/12/24 Unknown, Notinfile PCP - General 08/13/24 08/26/24 Kassandra Hooks NP PCP - General Nurse Practitioner 08/27/24 Lucho Peralta MD [address] [place] [address] [place] [address] Referring Physician Otolaryngology 12/07/23 documented as of this encounter
--- OUTSIDE RECORDS SUMMARY | 2025-04-03 19:28 | XMS_ITS | Encounter Summary ---
Author Organization [facility] Address [address] [place] [address] Phone Care Team Providers Care Electrical Integrator Name Role Phone Jesus Gonzalez DO Primary Care Provider Odilon Vyas MD Primary Care Provider [phone] Lucho Peralta MD Unavailable Xiomara Carlos MD Primary Care Provider [phone] Odilon Vyas MD Primary Care Provider [phone] Unknown, Notinfile Primary Care Provider Unavail able Kassandra Hooks NP Primary Care Provider + Encounter Details Date Type Department Care Team (Latest Contact Info) Description 05/10/2015 Orders Only [facility] CARDIOLOGY Chasity Borjas, CARMINA [address] [facility] [address] [place], [place] [id number] Social History Tobacco Use Types Packs/Day Years Used Date Smoking Tobacco: Never Assessed Comments Unknown Sex and Gender Information Value Date Recorded Sex Assigned at Not on file 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 Gender Identity Female 06/12/2023 3:27 PM CDT [...] on filedocumented in this encounter Care Teams Electrical Integrator Relationship Specialty Start Date End Date Jesus Gonzalez DO [address] [place] [address] PCP - General Family Medicine 10/26/21 02/07/23 Odilon Vyas MD [address] [place] [address] PCP - General Family Medicine 02/08/23 02/07/24 Xiomara Carlos MD [address] [place] [address] PCP - General Psychiatry 02/08/24 03/23/24 Odilon Vyas MD [address] [place] [address] PCP - General Family Medicine 03/24/24 08/12/24 Unknown, Notinfile PCP - General 08/13/24 08/26/24 Kassandra Hooks NP PCP - General Nurse Practitioner 08/27/24 Lucho Peralta MD [address] [place] [address] [place] [address] Referring Physician Otolaryngology 12/07/23 documented as of this encounter
--- OUTSIDE RECORDS SUMMARY | 2025-04-03 19:28 | XMS_ITS | Encounter Summary ---
Author Organization [facility] Address [address] [place] [address] Care Team Providers Care Aoc Operations Intelligence Officer Name Role Phone Odilon Vyas MD Primary Care Provider [phone] Lucho Peralta MD Unavailable Xiomara Carlos MD Primary Care Provider [phone] Odilon Vyas MD Primary Care Provider [phone] Unknown, Notinfile Primary Care Provider Unavail able Kassandra Hooks NP Primary Care Provider + Encounter Details Date Type Department Care Team (Late st Contact Info) Description 01/18/2024 Telephone [facility] [address] [address], [address] [place] [address] Massimo Glynn MD [address] [address] Social History Tobacco Use Types Packs/Day Years [...] on file 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 Gender Identity Female 06/12/2023 3:27 PM CDT [...] on filedocumented in this encounter Care Teams Aoc Operations Intelligence Officer Relationship Specialty Start Date End Date Odilon Vyas MD [address] [place] [address] PCP - General Family Medicine 02/08/23 02/07/24 Xiomara Carlos MD [address] [place] [address] PCP - General Psychiatry 02/08/24 03/23/24 Odilon Vyas MD [address] [place] [address] PCP - General Family Medicine 03/24/24 08/12/24 Unknown, Notinfile PCP - General 08/13/24 08/26/24 Kassandra Hooks NP PCP - General Nurse Practitioner 08/27/24 Lucho Peralta MD [address] [facility] [place] [address] Referring Physician Otolaryngology 12/07/23 documented as of this encounter
--- OUTSIDE RECORDS SUMMARY | 2025-04-03 19:28 | XMS_ITS | Encounter Summary ---
Author Organization [facility] Address [address] [place] [address] Phone Care Team Providers Care Boxcar Weigher Name Role Phone Lucho Peralta MD Unavailable Kassandra Hooks NP Primary Care Provider + Encounter Details Date Type Department Care Team (Late st Contact Info) Description 04/03/2025 Orders Only [facility] Hematology [address] [facility] Floor [address] [place] [address] Daphney Nance RN Iron deficiency anemia, unspecified iron deficiency anemia type (Primary Dx) Social History Tobacco Use Types Packs/Day Years [...] making you feel afraid or unsafe? 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 Gender Identity Female 06/12/2023 3:27 PM CDT [...] documented as of this encounter Visit Diagnoses Diagnosis Iron deficiency anemia, unspecified iron deficiency anemia type- Primary documented in this encounter Orders Appointment Requests Count Last Ordered Date Fi rst Ordered Date ONCBCN INFUSION APPT REQUEST 1 04/03/2025 documented in this encounter Care Teams Boxcar Weigher Relationship Specialty Start Date End Date Kassandra Hooks NP [address] [facility] [place] [address] PCP - General Nurse Practitioner 08/27/24 Lucho Peralta MD [address] [facility] [place] [address] Referring Physician Otolaryngology 12/07/23 documented as of this encounter
--- OUTSIDE RECORDS SUMMARY | 2025-04-03 19:28 | XMS_ITS | Encounter Summary ---
Author Organization [facility] Address [address] [place] [address] Phone Care Team Providers Care Pst Supervisor Name Role Phone Jesus Gonzalez DO Primary Care Provider Odilon Vyas MD Primary Care Provider [phone] Lucho Peralta MD Unavailable Xiomara Carlos MD Primary Care Provider [phone] Odilon Vyas MD Primary Care Provider + [phone] Unknown, Notinfile Primary Care Provider Unavail able Kassandra Hooks NP Primary Care Provider + Encounter Details Date Type Department Care Team (Latest Contact Info) Description 08/17/2015 Orders Only [facility] CARDIOLOGY Chasity Borjas, CARMINA [address] [facility] [address] [place], [place] [phone] Social History Tobacco Use Types Packs/Day Years Used Date Smoking Tobacco: Never Assessed Comments Unknown Sex and Gender Information Value Date Recorded Sex Assigned at Not on file 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 Gender Identity Female 06/12/2023 3:27 PM CDT [...] on filedocumented in this encounter Care Teams Pst Supervisor Relationship Specialty Start Date End Date Jesus Gonzalez DO [address] [place] [address] PCP - General Family Medicine 10/26/21 02/07/23 Odilon Vyas MD [address] [place] [address] PCP - General Family Medicine 02/08/23 02/07/24 Xiomara Carlos MD [address] [place] [address] PCP - General Psychiatry 02/08/24 03/23/24 Odilon Vyas MD [address] [place] [address] PCP - General Family Medicine 03/24/24 08/12/24 Unknown, Notinfile PCP - General 08/13/24 08/26/24 Kassandra Hooks, EDWIGE PCP - General Nurse Practitioner 08/27/24 Lucho Peralta MD [address] [facility] [place] [address] Referring Physician Otolaryngology 12/07/23 documented as of this encounter
--- OUTSIDE RECORDS SUMMARY | 2025-04-03 19:28 | XMS_ITS | Clinical Summary ---
Author Organization [facility] Address [address] [place] [address] Care Team Providers Care Drug Worker Name Role Phone Lucho Peralta MD Unavailable Kassandra Hooks NP Primary Care Provider + Allergies Active Allergy Reactions Criticality Noted Date Comments Amoxicillin-Pot Clavulanate Other (See comments) Low 02/06/2023 Makes Crohn's flare up Sulfamethoxazole-Trime thoprim Other (See comments) Low 02/06/2023 Makes Crohn's flare up Hydrocodone-Acetaminop hen Nausea And Vomiting Medium 05/29/2016 Buckley Latex Itching High 08/10/2016 Silver Blisters,Other (See comments) High 07/19/2023 Tegaderm dressing- used with PICC line (terminal carman is when she had reaction) Sulfa Other (See comments) High 06/16/2019 Drugs containing sulfur causes internal bleeding--rectal bleeding Sulfa (Sulfonamide Antibiotics) Rash,Other (See comments) High 02/18/2019 Drugs containing sulfur causes internal bleeding--rectal bleeding Medications albuterol HFA (PROVENTIL HFA,VENTOLIN HFA,PROAIR HFA) 90 mcg/actuation inhalerIndications: Bronchospasm Prevention,Chronic Obstructive Pulmonary Disease Inhale 1-2 puffs every 4 (four) hours as needed for wheezing or shortness of breath 01/24/20 19 Active ALPRAZolam (XANAX) 0.5 mg tabletIndications:a nxiety Take 0.5 tablets (0.25 mg total) by mouth nightly as needed for anxiety or sleep 12/30/19 22 Active apixaban (ELIQUIS) 5 mg tabletIndications:a trial fibrillation,Factor 5 leiden Take 1 tablet (5 mg total) by mouth 2 (two) times a day 07/22/20 19 Active mupirocin (BACTROBAN) 2 % ointmentIndications :Methicillin-Resist ant S. 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/ MRSA infection in Palate Apply 1 application (deactivated) to each nostril 3 (three) times a day 12/29/19 22 Active ergocalciferol (VITAMIN D) 50,000 unit capsuleIndications: Vitamin D Deficiency Take 1 capsule (50,000 Units total) by mouth once a week Take on Sunday Active dicyclomine (BENTYL) 10 mg capsule Take 2 capsules (20 mg total) by mouth 4 (four) times a day before meals and nightly 90 capsule 3 03/22/20 22 Active sucralfate (CARAFATE) 1 gram tablet Take 1 tablet (1 g total) by mouth 3 (three) times a day 90 tablet 1 05/31/20 22 Active ondansetron ODT (ZOFRAN-ODT) 4 mg disintegrating tablet DISSOLVE ONE TABLET ON TONGUE EVERY 8 HOURS NEEDED FOR NAUSEA OR VOMITING 30 tablet 1 10/09/20 22 Active chlorhexidine (PERIDEX) 0.12 % solutionIndications :Mouth Infection Prevention Apply 15 mL to the mouth or throat 2 (two) times a day as needed (Uses right before takes Anat (gets sores in mouth couple days before gets Anat)) Active PARoxetine (PAXIL) 40 mg tabletIndications:G eneralized Anxiety Disorder,Started in [place] r/t anxiety and nerves/ chronic pain Take 1 tablet (40 mg total) by mouth nightly 06/20/20 23 Active eszopiclone (LUNESTA) 2 mg tabletIndications:I nsomnia Take 1 tablet (2 mg total) by mouth nightly 09/12/20 23 Active cyanocobalamin (Vitamin B-12) 1,000 mcg sublingual tabletIndications:P revention of Vitamin B12 Deficiency Take 1 tablet (1,000 mcg total) by mouth early childhood assistant before breakfast No particular days Active turmeric root extract 500 mg capsuleIndications: Anti inflammatory/supple ment Take 1,000 mg by mouth with lunch Active aspirin 81 mg enteric coated tabletIndications:C erebral Thromboembolism Prevention,history of 3 strokes, a fib, factor 5 Take 1 tablet (81 mg total) by mouth with lunch Active acetaminophen-aspir in-caffeine (EXCEDRIN MIGRAINE) 250-250-65 mg per tabletIndications:M igraine Take 1 tablet by mouth every 6 (six) hours as needed for headaches (Migraine headache) Active fluticasone propionate (FLONASE) 50 mcg/actuation nasal sprayIndications:Me thicillin-Resistant S. Aureus Nasal Colonization,Nasal Polyp Administer 2 sprays into each nostril 3 (three) times a day as needed for rhinitis or allergies Left nostril only ( told her to saturate it) Active rOPINIRole (REQUIP) 1 mg tabletIndications:R estless Legs Syndrome Take 1 tablet (1 mg total) by mouth nightly 11/25/19 24 Active oxyCODONE-acetamino phen (PERCOCET) 5-325 mg per tabletIndications:P ain Take 1 tablet by mouth every 6 (six) hours as needed for pain 01/21/20 24 Active calcium citrate-vitamin D3 (CITRACAL WITH D) 315 mg-6.25 mcg (250 unit) per tablet Take 1 tablet by mouth 2 (two) times a day Active UNABLE TO FIND Take 1 each by mouth daily Med Name: beef liver Grassfed supplement Active umeclidinium-vilant Maryjo (ANORO ELLIPTA) 62.5-25 mcg/actuation blister with device Inhale 1 puff daily 1 each 11 09/08/20 24 Active ciprofloxacin (CILOXAN) 0.3 % ophthalmic solution 09/26/[address] (NexIUM) 40 mg capsule daily Active ketorolac (ACULAR) 0.5 % ophthalmic solution 12/14/19 24 Active diphenoxylate-atrop ine (LOMOTIL) 2.5-0.025 mg per tablet TAKE 1 TABLET BY MOUTH 4 (FOUR) TIMES A DAY NEEDED FOR DIARRHEA 120 tablet 1 11/10/20 24 Active rosuvastatin (CRESTOR) 40 mg tablet TAKE ONE TABLET BY MOUTH DAILY 30 tablet 12/11/19 25 Active Additional Information Patient not taking.Reported on 04/02/[address] (PROTONIX) 40 mg EC tablet TAKE ONE TABLET BY MOUTH IN THE MORNING BEFORE BREAKFAST 30 tablet 11 12/12/19 25 Active mercaptopurine (PURINETHOL) 50 mg tablet TAKE ONE TABLET BY MOUTH DAILY 30 tablet 2 01/13/20 25 Active Humira Pen 40 mg/0.8 mL pen injector kitIndications:Croh n's Disease Inject 0.8 mL (40 mg total) under the skin every 14 (fourteen) days Sundays 8 each 01/20/20 25 Active tiZANidine (ZANAFLEX) 2 mg tabletIndications:M uscle Spasm TAKE 1 TABLET (2 MG TOTAL) BY MOUTH EVERY 6 (SIX) HOURS NEEDED FOR MUSCLE SPASMS 120 tablet 02/18/20 25 Active predniSONE (DELTASONE) 2.5 mg tablet Take 1 tablet (2.5 mg) by mouth daily Active predniSONE (DELTASONE) 5 mg tablet Take 0.5 tablets (2.5 mg) by mouth daily 15 tablet 02/18/20 25 025 Active Problems Problem Noted Date Diagnosed Date Iron deficiency anemia 02/11/2025 Immunodeficiency 10/17/2024 Chronic obstructive pulmonary disease, unspecifi ed 09/08/2024 Hip pain 02/25/2024 Eustachian tube dysfunction, bilateral Chronic sinusitis 01/01/2024 Combined forms of age-related cataract of right eye 12/05/2023 S/P cataract extraction and insertion of intraocular lens, left 11/13/2023 Assessment & Plan (11/13/2023 4:00 PM ACID LOADER): PO2W cataract extraction (CE)/posterior chamber intraocular lens [...] (PSC) cataracts both eyes (OU) secondary to terminal carman prednisone usage +1D otc readers for distance [...] Quiet today, monitor Chiari malformation type I 08/09/2023 Assessment & Plan (08/09/2023 11:17 AM [...] referral. - We will have MRE from [facility] read by our radiologists. Assessment & Plan (02/06/2023 12:22 PM CDT): MRE on 12/08/22 showed cystic lesions of the pancreas measuring up to 6mm. The patient only had an image of the impression of this report, and we do not have access to the report or study itself. - Patient has given authorization to release MRE report from [facility]. We will also obtain the images and [...] her abdominal pain on recent MRE at [facility]. We will obtain this study and have [...] valve Surgeries: ileocolic resection in 2019 at [facility] - 6 inches of small bowel [...] traverse the IC valve, prompting ileocolic resection ([facility]) - [address] incidentally [...] traverse the IC valve, prompting ileocolic resection ([facility]) - [address] incidentally [...] traverse the IC valve, prompting ileocolic resection ([facility]) - [address] Path incidentally [...] dose. Assessment & Plan (10/23/2022 11:27 AM ACID LOADER): Diagnosis in 2014. Humira since Mar, 2016. 23 nasal surgeries. -small bowel resection, 2019. 6inches. -Last colonoscopy, 04/2020. -On Humira 2016, Mercaptopurine and Prednisone. -Appendiceal carcinoma, goblet cell carcinoma. -continued abdominal pain, concern for thrombosis? Also follows up with Hematology. CT scan recently done in May and 08/10 with no acute findings. Will order MR enterography for further evaluation. Ordered. Not done by patient yet. -recent blood work from [facility] reviewed. Noted to have urinalysis, [...] continue. Assessment & Plan (09/25/2022 10:44 AM ACID LOADER): Diagnosis in 2014. Humira since Mar, 2016. [...] Crohn's as above Malignant neoplasm of appendix 01/17/2022 Crohn's disease of colon with rectal bleeding Overview (07/26/2022): Last Assessment & Plan: A: [...] today -Talked to her GI group at [facility] Dr Torres on-call, suggested if pt is stable to d/c to be [facility] work her up further. Talking to the [...] Encounters Date Type Department Care Team Description 04/03/2025 Orders Only [facility] Hematology [address] [facility] Floor 6 [place] [phone] Daphney Nance RN Iron deficiency anemia, unspecified iron deficiency anemia type (Primary Dx) 04/02/2025 1:00 PM CDT Office Visit [facility] Infectious Diseases [address] [place] [phone] Eboni Hamm NP Encounter for screening examination for sexually transmitted disease; Chronic sinusitis, unspecified location 04/02/2025 Telephone [facility] Infectious Diseases [address] [place] [phone] Lia Reyes RN 04/01/2025 Telephone [facility] Gastroenterology [address] [place] [address] Medical Office Building [address], [address] [place] [phone] Anusha Doyle Scheduling Appointments (04/01 Pt returned called, had MRI 01/2025 Declined to scheduled 1yr FU. Dr. Dillon advised) 04/01/2025 Telephone [facility] Gastroenterology [address] [place] [address] Medical Office Building [address], [address] [place] [address] Anusha Doyle Scheduling Appointments (04/01 Called to schedule 1 yr FU; No answer ) 03/20/2025 Telephone [facility] Otolaryngology [address] [place] [address] Lillian Iqbal MS 03/20/2025 [facility] [address] [facility] Medical Office Building [address] [place] [phone] Hamilton HarikaSHA 02/12/2025 Results Follow-Up [facility] Gastroenterology [address] [facility] Medical Office Building 4 [address] [place] [address] Montrell Kern MD 02/12/2025 Orders Only [facility] Hematology [facility] [facility] Floor 6 [place] [phone] Daphney Nance RN Iron deficiency anemia, unspecified iron deficiency anemia type (Primary Dx) 02/11/2025 9:30 AM CDT - 02/11/2025 10:15 AM CDT Surgery [facility] [address] [place] [address] Montrell Kern MD COLON REMOVAL SNARE 02/11/2025 9:24 AM CDT Anesthesia Event [facility] [address] [place] [address] Eddie Soto MD 02/11/2025 8:17 AM CDT - 02/11/2025 10:52 AM CDT Hospital Encounter [facility] [address] [place] [address] Montrell Kern MD Crohn's disease of both small and large intestine with other complication (HCC) Discharge Disposition: Discharge to home or self care 02/11/2025 Orders Only [facility] Hematology [facility] Floor [address] [place] [phone] Lucia Brown, CARMINA 02/10/2025 Telephone [facility] Gastroenterology [facility] 12th [place] [address] [place] [phone] Emely Almaraz CPhT 02/10/2025 Orders Only [facility] Hematology [facility] Floor 6 [place] [phone] Lucia Brown, RN 02/09/2025 12:45 PM CDT Lab [facility] [address] [place] [address] Iron deficiency anemia, unspecified iron deficiency anemia type 02/09/2025 11:30 AM CDT Office Visit [facility] Hematology [address] [facility] Medical Office Building 2 [address] [place] [phone] Elle Medel NP Family history of other endocrine, nutritional and metabolic diseases; Other fatigue; Iron deficiency anemia, unspecified iron deficiency anemia type; Malignant neoplasm of appendix (HCC); Personal history of transient ischemic attack (TIA), and cerebral infarction without residual deficits; Activated protein C resistance 02/02/2025 Telephone [facility] Hematology [address] [facility] [address] [place] [address] Anali Almendarez 01/19/2025 Results Follow-Up [facility] Gastroenterology [address] [facility] Medical Office Building 4 [address] [place] [address] Montrell Kern MD 01/17/2025 10:08 AM ACID LOADER - 01/17/2025 11:59 PM ACID LOADER Hospital Encounter [facility] Radiology at [address] [address] Crohn's disease of both small and large intestine with other complication (HCC) Discharge Disposition: Discharge to home or self care 01/06/2025 Results Follow-Up [facility] Scheduling [address] [place] [address] Corazon Becerra NP from Last 3 Months Surgical History Surgery Date Site/Laterality Comments COLONOSCOPY 05/11/2020 [place] SINUS SURGERY 09/28/2016 Successful embolization of left [...] History Medical History Date Comments Crohn's disease (HCC) Cancer of appendix (HCC) 2018 Factor 5 Leiden mutation, heterozygous Arnold-Chiari malformation, type I (HCC) CVA (cerebral vascular accident) (HCC) 5 Had a second stroke 08/20/2015. Right sided weakness Epilepsy (HCC) Migraines Depression Anemia H/O blood clots portal vein Hyperlipidemia Colitis Bronchitis, chronic (HCC) Low back pain Abnormal heart rhythm Wears dentures Anxiety Acid reflux [id number]|2025-04-03 19:28:00|2025-04-03 19:28:00|XMS_ITS|BKG DAEMON|External Medical Summaries|[id number]|" Oncology Summary Created on: April 03, 2025 Danette Thomas : 1970 Sex: Female Author Organization [facility] Address [address] [place] [address] Care Team Providers Care Drug Worker Name Role Phone Lucho Peralta MD Unavailable Kassandra Hooks INTERNATIONAL REPRESENTATIVE Primary Care Provider + Active Problems Problem Noted Date Diagnosed Date Iron deficiency anemia 02/11/2025 Immunodeficiency 10/17/2024 Chronic obstructive pulmonary disease, unspecifi ed 09/08/2024 Hip pain 02/25/2024 Eustachian tube dysfunction, bilateral Chronic sinusitis 01/01/2024 Combined forms of age-related cataract of right eye 12/05/2023 S/P cataract extraction and insertion of intraocular lens, left 11/13/2023 Assessment & Plan (11/13/2023 4:00 PM ACID LOADER): PO2W cataract extraction (CE)/posterior chamber intraocular lens [...] (PSC) cataracts both eyes (OU) secondary to halfway prednisone usage +1D otc readers for distance [...] Quiet today, monitor Chiari malformation type I 08/09/2023 Assessment & Plan (08/09/2023 11:17 AM [...] referral. - We will have MRE from [facility] read by our radiologists. Assessment & Plan (02/06/2023 12:22 PM CDT): MRE on 12/08/22 showed cystic lesions of the pancreas measuring up to 6mm. The patient only had an image of the impression of this report, and we do not have access to the report or study itself. - Patient has given authorization to release MRE report from [facility]. We will also obtain the images and [...] her abdominal pain on recent MRE at [facility]. We will obtain this study and have [...] N/A Complications: Developed terminal ileal stricture in 2018, scope reportedly could not traverse IC valve Surgeries: ileocolic resection in 2019 at [facility] - 6 inches of small bowel [...] traverse the IC valve, prompting ileocolic resection ([facility]) - [address] incidentally [...] traverse the IC valve, prompting ileocolic resection ([facility]) - 6 inches resected. Path incidentally [...] traverse the IC valve, prompting ileocolic resection ([facility]) - 6 inches resected. Path incidentally [...] dose. Assessment & Plan (10/23/2022 11:27 AM ACID LOADER): Diagnosis in 2014. Humira since Mar, 2016. [...] by patient yet. -recent blood work from [facility] reviewed. Noted to have urinalysis, [...] continue. Assessment & Plan (09/25/2022 10:44 AM ACID LOADER): Diagnosis in 2014. Humira since Mar, 2016. [...] 2016. 23 nasal surgeries. -small bowel resection, 2018. 6inches. -Last colonoscopy, 04/2020. -On Humira 2015, [...] Crohn's as above Malignant neoplasm of appendix 01/17/2022 Crohn's disease of colon with rectal bleeding Overview (07/26/2022): Last Assessment & Plan: A: [...] today -Talked to her GI group at [facility] Dr Torres on-call, suggested if pt is stable to d/c [facility] work her up further. Talking to the [...] not affect management. Recurrent epistaxis 11/10/2016 Current Treatment and Therapy Plans No current plan information found. Other Current Plans Cortrosyn Stimulation test - high dose (250 MCG)* Plan Start Date:08/29/2024 Plan Provider:Lana Carmona DO Linked Problems High risk medications (not a nticoagulants) long-term use Treatment Medications No medications scheduled. iron sucrose (Venofer) Infusion* Plan Start Date:02/10/2025 Plan Provider:Elle Medel NP Linked Problems High risk medications (not a nticoagulants) long-term useIron deficiencyIron deficiency anemia, unspecified iron deficiency anemia type Treatment Medications No medications scheduled. Past Treatment and Therapy Plans Lifetime Dose Tracking * Chemical Lifetime Dose Automatic Entry Manual Entr y Fluoro Time 1.312 minutes 1.312 minutes 0 minutes Air kerma at the reference point (Ka,r) 33.48 mGy 3 3.48 mGy 0 mGy DLP 855.4 mGycm 855.4 mGycm 0 mGycm CTDIvol 1.52 mGy 1.52 mGy 0 mGy "
--- OUTSIDE RECORDS SUMMARY | 2025-04-03 19:28 | XMS_ITS | Encounter Summary ---
Author Organization [facility] Healthcare Address [address] [place] [address] Care Team Providers Care Research Biologist Name Role Phone Odioln Vyas MD Primary Care Provider [phone] Lucho Peralta MD Unavailable Xiomara Carlos MD Primary Care Provider [phone] Odilon Vyas MD Primary Care Provider [phone] Unknown, Notinfile Primary Care Provider Unavail able Kassandra Hooks NP Primary Care Provider + Encounter Details Date Type Department Care Team (Late st Contact Info) Description 01/21/2024 Telephone [facility] at [facility] [address] [address], [address] [place] [address] Massimo Glynn MD [address] [address] Social History Tobacco Use Types Packs/Day Years [...] on file 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 Gender Identity Female 06/12/2023 3:27 PM CDT [...] on filedocumented in this encounter Care Teams Research Biologist Relationship Specialty Start Date End Date Odilon Vyas MD [address] [place] [address] PCP - General Family Medicine 02/08/23 02/07/24 Xiomara Carlos MD [address] [place] [address] PCP - General Psychiatry 02/08/24 03/23/24 Odilon Vyas MD [address] [place] [address] PCP - General Family Medicine 03/24/24 08/12/24 Unknown, Notinfile PCP - General 08/13/24 08/26/24 Kassandra Hooks NP PCP - General Nurse Practitioner 08/27/24 Lucho Peralta MD [address] [facility] [place] [address] Referring Physician Otolaryngology 12/07/23 documented as of this encounter
--- OUTSIDE RECORDS SUMMARY | 2025-04-03 19:28 | XMS_ITS | Encounter Summary ---
Author Organization [facility] Address [address] [place] [address] Phone Care Team Providers Care Stock Control Clerk Name Role Phone Jesus Gonzalez DO Primary Care Provider Odilon Vyas MD Primary Care Provider [phone] Lucho Peralta MD Unavailable Xiomara Carlos MD Primary Care Provider [phone] Odilon Vyas MD Primary Care Provider + [phone] Unknown, Notinfile Primary Care Provider Unavail able Kassandra Hooks NP Primary Care Provider + Encounter Details Date Type Department Care Team (Latest Contact Info) Description 08/16/2015 Orders Only [facility] CARDIOLOGY Chasity Borjas, CARMINA [address] [facility] [address] [place], [place] [id number] Social History Tobacco Use Types Packs/Day Years Used Date Smoking Tobacco: Never Assessed Comments Unknown Sex and Gender Information Value Date Recorded Sex Assigned at Not on file Legal Sex 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 Gender Identity Female 06/12/2023 3:27 PM CDT [...] RADIOLOGY/IMAGING (08/16/2015) Anatomical Region Laterality Modality Other Chasity Borjas RN Final Result documented in this encounter Visit Diagnoses Not on filedocumented in this encounter Care Teams Stock Control Clerk Relationship Specialty Start Date End Date Jesus Gonzalez DO [address] [place] [address] PCP - General Family Medicine 10/26/21 02/07/23 Odilon Vyas MD [address] [place] [address] PCP - General Family Medicine 02/08/23 02/07/24 Xiomara Carlos MD [address] [place] [address] PCP - General Psychiatry 02/08/24 03/23/24 Odilon Vyas MD [address] [place] [address] PCP - General Family Medicine 03/24/24 08/12/24 Unknown, Notinfile PCP - General 08/13/24 08/26/24 Kassandra Hooks NP PCP - General Nurse Practitioner 08/27/24 Lucho Peralta MD [address] [facility] [place] [address] Referring Physician Otolaryngology 12/07/23 documented as of this encounter
--- OUTSIDE RECORDS SUMMARY | 2025-04-03 19:28 | XMS_ITS | Referral Summary ---
Author Organization [facility] Address [address] [place] [address] Care Team Providers Care Funeral Professional Name Role Phone Lucho Peralta MD Unavailable Kassandra Hooks NP Primary Care Provider + Encounters Date Type Department Care Team Description 04/03/2025 Orders Only [facility] Hematology [address] [facility] Floor 6 [place] [address] Daphney Nance RN Iron deficiency anemia, unspecified iron deficiency anemia type (Primary Dx) 04/02/2025 Telephone [facility] Infectious Diseases [address] [place] [address] Lia Reyes RN 04/02/2025 1:00 PM CDT Office Visit [facility] Infectious Diseases [address] [place] [address] Eboni Hamm NP Encounter for screening examination for sexually transmitted disease; Chronic sinusitis, unspecified location 04/01/2025 Telephone [facility] Gastroenterology [address] [place] [address] Medical Office Building 4, [address] [place] [address] Anusha Doyle Scheduling Appointments (04/01 Pt returned called, had MRI 01/2025 Declined to scheduled 1yr FU. Dr[address] Dillon advised) 04/01/2025 Telephone [facility] Gastroenterology [address] [place] [address] Medical Office Building [address], [address] [place] [address] Anusha Doyle Scheduling Appointments (04/01 Called to schedule 1 yr FU; No answer ) 03/20/2025 Telephone [facility] Otolaryngology [address] [place] [address] Lillian Iqbal MS 03/20/2025 Telephone [facility] ENT [address] [facility] Medical Office Building [address] [place] [address] Harika Hamilton CMA 02/12/2025 Results Follow-Up [facility] Gastroenterology [address] [facility] Medical Office Building 4 [address] [place] [address] Montrell Kern MD 02/12/2025 Orders Only [facility] Hematology [facility] [facility] Floor 6 [place] [address] Daphney Nance RN Iron deficiency anemia, unspecified iron deficiency anemia type (Primary Dx) 02/11/2025 Orders Only [facility] Hematology [address] [facility] Floor 6 [place] [phone] Lucia Brown RN 02/11/2025 9:30 AM CDT - 02/11/2025 10:15 AM CDT Surgery [facility] Endoscopy [address] [place] [address] Montrell Kern MD COLON REMOVAL SNARE 02/11/2025 9:24 AM CDT Anesthesia Event [facility] [address] [place] [address] Eddie Soto MD 02/11/2025 8:17 AM CDT - 02/11/2025 10:52 AM CDT Hospital Encounter [facility] [address] [place] [address] Montrell Kern MD Crohn's disease of both small and large intestine with other complication (HCC) Discharge Disposition: Discharge to home or self care 02/10/2025 Telephone [facility] Gastroenterology [address] [facility] 12th [place] [address] [place] [phone] Emely Almaraz, Loan 02/10/2025 Orders Only [facility] Hematology [address] [facility] Floor 6 [place] [address] Lucia Brown RN 02/09/2025 12:45 PM CDT Lab [facility] at [address] [phone] Iron deficiency anemia, unspecified iron deficiency anemia type 02/09/2025 11:30 AM CDT Office Visit [facility] Hematology [address] [facility] Medical Office Building 2 [address] [place] [address] Elle Medel NP Family history of other endocrine, nutritional and metabolic diseases; Other fatigue; Iron deficiency anemia, unspecified iron deficiency anemia type; Malignant neoplasm of appendix (HCC); Personal history of transient ischemic attack (TIA), and cerebral infarction without residual deficits; Activated protein C resistance 02/02/2025 Telephone [facility] Hematology [address] [facility] Floor 6 [place] [address] EricksonVeritoAnali 01/19/2025 Results Follow-Up [facility] Gastroenterology [address] [facility] Medical Office Building [address] [place] [address] Montrell Kern MD 01/17/2025 10:08 AM HUB BANDER - 01/17/2025 11:59 PM HUB BANDER Hospital Encounter [facility] Radiology at [address] [id number] Crohn's disease of both small and large intestine with other complication (HCC) Discharge Disposition: Discharge to home or self care 01/06/2025 Results Follow-Up 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 she had reaction) Sulfa Other [...] 40 mg tabletIndications:G eneralized Anxiety Disorder,Started in [place] r/t anxiety and nerves/ chronic pain Take 1 tablet (40 mg total) by mouth nightly 06/20/20 23 Active eszopiclone (LUNESTA) 2 mg tabletIndications:I nsomnia Take 1 tablet (2 mg total) by mouth nightly 09/12/20 23 Active cyanocobalamin (Vitamin B-12) 1,000 mcg sublingual tabletIndications:P revention of Vitamin B12 Deficiency Take 1 tablet (1,000 mcg total) by mouth table attendant before breakfast No particular days Active turmeric [...] 11/13/2023 Assessment & Plan (11/13/2023 4:00 PM HUB BANDER): PO2W cataract extraction (CE)/posterior chamber intraocular lens [...] (PSC) cataracts both eyes (OU) secondary to oil heaterman prednisone usage +1D otc readers for distance [...] referral. - We will have MRE from [facility] read by our radiologists. Assessment & Plan (02/06/2023 12:22 PM CDT): MRE on 12/08/22 showed cystic lesions of the pancreas measuring up to 6mm. The patient only had an image of the impression of this report, and we do not have access to the report or study itself. - Patient has given authorization to release MRE report from [facility]. We will also obtain the images [...] her abdominal pain on recent MRE at [facility]. We will obtain this study and [...] valve Surgeries: ileocolic resection in 2019 at [facility] - 6 inches of small [...] traverse the IC valve, prompting ileocolic resection ([facility]) - 6 inches resected. Path [...] traverse the IC valve, prompting ileocolic resection ([facility]) - 6 inches resected. Path [...] traverse the IC valve, prompting ileocolic resection ([facility]) - 6 inches resected. Path [...] dose. Assessment & Plan (10/23/2022 11:27 AM HUB BANDER): Diagnosis in 2014. Humira since Mar, 2016. [...] by patient yet. -recent blood work from [facility] reviewed. Noted to have urinalysis, [...] continue. Assessment & Plan (09/25/2022 10:44 AM HUB BANDER): Diagnosis in 2014. Humira since Mar, 2016. [...] today -Talked to her GI group at [facility] Dr Torres on-call, suggested if pt is stable to d/c to be admitted to [facility] work her up further. Talking to [...] money to buy more. Never true 02/25/20 Within the past 12 months, t he [...] on file Legal Sex Female 10:13 AM HUB BANDER Gender Identity Female 06/12/2023 3:27 PM CDT Sexual Orientation Lesbian 06/12/2023 3: 27 PM CDT Last Filed Vital Signs Vital Sign Reading Time Taken Comments Blood Pressure 102/64 04/02/2025 1:20 PM CDT Pulse 75 04/02/2025 1:20 PM CDT Temperature 36.5 C (97.7 F) 04/02/2025 1:20 PM CDT Respiratory Rate 16 02/11/2025 10:3 5 AM CDT Oxygen Saturation 97% 04/02/2025 1:20 PM CDT Inhaled Oxygen Concentration - - Weight 76.1 kg (167 lb 11.2 oz) 04/02/2025 1:20 PM CDT Height 165.1 cm (5' 5 ) 04/02/2025 1:20 PM CDT Body Mass Index 27.91 04/02/2025 1:20 PM CDT Plan of Treatment Scheduled Procedures Name Priority Associated Diagnoses D [id number]|2025-04-03 19:28:00|2025-04-03 19:28:00|XMS_ITS|KELLY STAFFORD|External Medical Summaries|[id number]|" Encounter Summary Created on: April 03, 2025 Danette Thomas : 1970 Sex: Female Author Organization [facility] Address [address] [place] [address] Phone Care Team Providers Care Funeral Professional Name Role Phone Lucho Peralta MD Unavailable Kassandra Hooks NP Primary Care Provider + Encounter Details Date Type Department Care Team (Late st Contact Info) Description 02/12/2025 Results Follow-Up [facility] Gastroenterology [address] [place] [address] Medical Office Building [address] [place] [address] Montrell Kern MD [address] [place], [place] [id number] Social History Tobacco Use Types Packs/Day Years [...] on file Legal Sex Female 10:13 AM HUB BANDER Gender Identity Female 06/12/2023 3:27 PM CDT Sexual Orientation Lesbian 06/12/2023 3: 27 PM CDT documented as of this encounter Miscellaneous Notes * Result Encounter Note - Indu Fortune RN - 02/17/2025 8:19 AM CDT Results letter shared via [employer]; Future scheduling reminder set * Result Encounter Note - Montrell Kern MD - 02/12/2025 1:33 PM CDT Pathology results from recent colonoscopy showed normal renita-terminal ileum biopsies and no active inflammation on biopsies from right and left colon, consistent with remission of Crohn's disease. It also showed one diminutive tubular adenoma. I recommend repeat colonoscopy in 3 years with split suprep and 2 days of liquids. JOSHUA KERN MD documented in this encounter Plan of Treatment [...] on filedocumented in this encounter Care Teams Funeral Professional Relationship Specialty Start Date End Date Kassandra Hooks NP [address] [facility] [place] [address] PCP - General Nurse Practitioner 08/27/24 Lucho Peralta MD [address] [facility] [place] [address] Referring Physician Otolaryngology 12/07/23 documented as of this encounter "
--- OUTSIDE RECORDS SUMMARY | 2025-04-03 19:28 | XMS_ITS | Encounter Summary ---
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 Gender Identity Female 06/12/2023 3:27 PM [...] on filedocumented in this encounter Care Teams Structural Layout Worker Relationship Specialty Start Date End Date Jesus Gonzalez DO [address] [place] [address] PCP - General Family Medicine 10/26/21 02/07/23 Odilon Vyas MD [address] [place] [address] PCP - General Family Medicine 02/08/23 02/07/24 Xiomara Carlos MD [address] [place] [address] PCP - General Psychiatry 02/08/24 03/23/24 Odilon Vyas MD [address] [place] [address] PCP - General Family Medicine 03/24/24 08/12/24 Unknown, Notinfile PCP - General 08/13/24 08/26/24 Kassandra Hooks, EDWIGE PCP - General Nurse Practitioner 08/27/24 Lucho Peralta MD [address] [facility] [place] [address] Referring Physician Otolaryngology 12/07/23 documented as of this encounter
--- OUTSIDE RECORDS SUMMARY | 2025-04-03 19:28 | XMS_ITS | Encounter Summary ---
Author Organization [facility] Address [address] [place] [address] Phone Care Team Providers Care Inventory Auditor Name Role Phone Lucho Peralta MD Unavailable Kassandra Hooks NP Primary Care Provider + Reason for Visit * Reason Comments Follow-up * Consultation (Routine) - Authorized Specialty Diagnoses / Procedures Referred By Contac t Referred To Contact Infectious Diseases Diagnoses Chronic sinusitis, unspecified location Lucho Peralta MD [address] [place] [address] Phone: tel: fax: [facility] (All Locations) Referral ID Status Reason Start Date Expiration Date Visits Requested Visits Authorized [id number] Authorized Specialty Services Required 03/23/2025 04/22/2026 12 12 Encounter Details Date Type Department Care Team (Late st Contact Info) Description 04/02/2025 1:00 PM CDT Office Visit [facility] Infectious Diseases [address] [place] [address] [address] [place] [phone] Eboni Hamm NP [address] [facility] [address] [place] [address] Encounter for screening examination for sexually transmitted disease; Chronic sinusitis, unspecified location Social History Tobacco Use Types Packs/Day Years [...] on file 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 Gender Identity Female 06/12/2023 3:27 PM CDT Sexual Orientation Lesbian 06/12/2023 3: 27 PM CDT documented as of this encounter Last Filed Vital Signs Vital Sign Reading Time Taken Comments Blood Pressure 102/64 04/02/2025 1:20 PM CDT Pulse 75 04/02/2025 1:20 PM CDT Temperature 36.5 C (97.7 F) 04/02/2025 1:20 PM CDT Respiratory Rate - - Oxygen Saturation 97% 04/02/2025 1:20 PM CDT Inhaled Oxygen Concentration - - Weight 76.1 kg (167 lb 11.2 oz) 04/02/2025 1:20 PM CDT Height 165.1 cm (5' 5 ) 04/02/2025 1:20 PM CDT Body Mass Index 27.91 04/02/2025 1:20 PM CDT documented in this encounter Plan of Treatment Scheduled Procedures Name Priority Associated Diagnoses Date/Ti me COLONOSCOPY Iron deficiency documented as of this encounter Goals Goal Patient Goal Type Associated Problems Recent Progress Patient-Stated? Author CCM Chronic Pain Care Plan Chronic Care Management Worsening( 8:52 AM CDT) Lashawn Cates RN Note: Problem: Chronic Pain Goals: 1. Minimize further functional decline 2. Maximize quality of life 3. Control pain Strategies: - Activity/exercise program recommendation - Conservative stepwise pain medicine strategy with multi-disciplinary approach - Recommend healthy lifestyle strategies and compensatory methods as needed documented as of this encounter Visit Diagnoses Diagnosis Encounter for screening examination for sexually transmitted disease Chronic sinusitis, unspecified location documented in this encounter Historical Medications * This list may reflect changes made after this encounter. predniSONE (DELTASONE) 2.5 mg tablet Take 1 tablet (2.5 mg) by mouth daily added in this encounter Orders Outpatient Referral Count Last Ordered Date Fir st Ordered Date AMB REFERRAL TO INFECTIOUS DISEASE 1 2024 documented in this encounter Care Teams Inventory Auditor Relationship Specialty Start Date End Date Kassandra Hooks NP [address] [facility] [place] [address] PCP - General Nurse Practitioner 08/27/24 Lucho Peralta MD [address] [facility] [place] [address] Referring Physician Otolaryngology 12/07/23 documented as of this encounter
--- OUTSIDE RECORDS SUMMARY | 2025-04-03 19:29 | XMS_ITS | Continuity of Care Document ---
Author Organization [facility] Address [address] [place] [address] Phone Care Team Providers Care El Teacher Name Role Phone Lorrie HUYNH, Meeta Unavailable Unavailable Advance Directives Directive Yes / No Effective Date File Name No Information Encounters Encounter Description Practice Location Reason(s) For Visit Diagnoses Date Provider Providers Copied on Encounter [facility], [address], [id number], [place] tel:[phone] [facility] No Information Lorrie Tim. [address] [place], [place], [id number], [place]. tel:[phone] Family History Family Member Type Diagnosis Age At Onset Mother Problem (finding) malignant neoplasm of l kaitlyner Father Problem (finding) hypertension Payers Payer name Insurance type Covered green party ID Authoriza tion(s) [facility] Ppo/EPO BL [id number] Social History Type Description Quantity Date Captured [...]
--- OUTSIDE RECORDS SUMMARY | 2025-04-03 19:29 | XMS_ITS | Clinical Summary ---
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) Sulfa Antibiotics [...] Crohn's disease 09/14/2024 Factor V deficiency (CMS/HCC HHS/HCC) 09/14/2024 History of atrial fibrillation 09/14/2024 Chronic uveitis of both eyes 09/14/2024 RLS (restless legs syndrome) 09/14/2024 Family History Medical History Relation Comments Hypertension [...] Screening with HPV 2001 Mammogram Screening 2011 Pneumococcal Vaccine: 50+ Ye ars (1 of 1 - PCV) 2021 Zoster Vaccines (1 of 2) 2021 PHQ-2 (Physician Maynard) 11/19/2024 09/12/2024 COVID-19 Vaccine (1 - 2023-2 5 season) 2025 Postponed from 07/20 (Patient Refused) RSV Immunizations Under 20 Months Aged Out No longer eligible based on patient's age to complete this topic Insurance Care Teams Production Finisher Relationship Specialty [place] [id number] [facility] [address] [place] [address] PCP - General INTERNAL MEDICINE 09/09/24
--- OUTSIDE RECORDS SUMMARY | 2025-04-03 19:29 | XMS_ITS | Encounter Summary ---
Author Organization [facility] Address [address] [place] [address] Phone Care Team Providers Care Grinding Machine Tender Name Role Phone Lucho Peralta MD Unavailable Odilon Vyas MD Primary Care Provider [phone] Unknown, Notinfile Primary Care Provider Unavail able Kassandra Hooks NP Primary Care Provider + Encounter Details Date Type Department Care Team (Late st Contact Info) Description 06/24/2024 Orders Only [facility] Gastroenterology [facility] Medical Office Building [address], [address] [place] [address] Irma Dillon MD [address] [place] [address] Social History Tobacco Use Types [...] on file Legal Sex Female 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
--- OUTSIDE RECORDS SUMMARY | 2025-04-03 19:29 | XMS_ITS | Continuity of Care Document ---
Author Organization [facility] Address [address] [place] [address] Phone Care Team Providers Care Shovel Logger Name Role Phone Zahira Isbell MD Unavailable Unavailable Procedures Procedure Date Electrocardiogram report Advance Directives Directive Yes / No Effective Date File Name No Information Encounters Encounter Description Practice Location Reason(s) For Visit Diagnoses Date Provider Providers Copied on Encounter [facility], [address], [place], [place], [id number], [place] tel:[phone] [facility] No Information 6 Sukhi Rodriges. [address] [place] [address], [facility], [place]. tel:[phone] Family History Family Member Type Diagnosis Age At Onset No Information Payers Payer name Insurance type Covered alliance party ID Authoriza tion(s) [facility] PPO BL [id number] Social History Type Description Quantity Date Captured [...]
--- OUTSIDE RECORDS SUMMARY | 2025-04-03 19:29 | XMS_ITS | Encounter Summary ---
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 Pena and Eboni Hamm NP saw patient today as a NEW referral for chronic sinusitis. Patient became very upset during visit when told that she would not receive IV abx at this time to treat her chronic sinusitis. Patient made a comment that she was worn out and that she was going to shut off and was done and walked out of the visit. The patient had already left the clinic when RN alumina plant supervisor was notified. [facility] was contacted and advised to reach out to the patient by phone and follow suicide assessment policy. RN called patient and asked if she was safe and patient stated she was safe and presently driving home. RN offered to listen to her concerns from visit today. Patient expressed her frustration and anger with all of the doctors she has seen and no one has helped her. She became very angry and statedthat her doctors don't know what they are doing and are liars RN also stated that the ID clinic takes comments very seriously and her providers were concerned about statements she had made during visit. RN asked if patient was considering harming herself or others and patient stated I will harm myself if the doctors don't do what they are supposed to do . RN stated that our ID provider had planned to coordinate care with ENT. Patient stated that was fine but she still plans to harm herself if they don't do what they should. RN stated that if she is threatening to harm herself that she will need to call the police to come and check on her. Patient said that was fine and that she was home and hung up. Call to [facility] department and explained that patient was seen in clinic and threatening to harm themself, RN is requesting a safety check for suicidal ideation. Called patient back to explain that police are on their way, patient stated that police were present and stop wasting my time and hung up. Police called back and stated that they met with patient and had no concerns at this time and patient agreed to call them back if she was feeling suicidal or did not feel safe. documented in this encounter Plan of Treatment [...] on filedocumented in this encounter Care Teams Individual Pension Consultant Relationship Specialty Start Date End Date Kassandra Hooks NP [address] [facility] [place] [address] PCP - General Nurse Practitioner 08/27/24 Lucho Peralta MD [address] [place] [address] [place] [address] Referring Physician Otolaryngology 12/07/23 documented as of this encounter
== END 2025-04-03 19:24 | disposition home or self-care (01) ==
LOC: ANHLAB 19:25
PROVIDERS: PCP Nurse Practitioner Family; Visit Provider Otolaryngology
DX: J32.9 Chronic sinusitis, unspecified (principal)
CPT/HCPCS: 87070; 87075; 87205

== ENCOUNTER 2025-05-12 17:42 | Emergency (ER) | payer BC, SELFPAY ==
[2025-05-12 17:44] VITALS: BP 132/77; PULSE 70; RESP 18; TEMP 36.7; O2SAT 96
[2025-05-12 18:50] VITALS: BP 101/61; PULSE 61; RESP 16; TEMP 36.6; O2SAT 92
[2025-05-12] MEDS: MECLIZINE HCL 25 MG TABLET 50 MG PO (18:57)
[2025-05-12] MEDS: AMOXICILLIN 500 MG CAPSULE 1000 MG PO (18:57)
--- NOTE | 2025-05-12 19:12 | ED_ITS ---
HPI - Dizziness General Chief Complaint: Dizziness Stated Complaint: back pain Time Seen by Provider: 05/12/25 17:58 Source: patient Mode of arrival: ambulatory Limitations: no limitations History of Present Illness HPI Narrative: This is a 54-year-old female, with history of recurrent sinus infections and ear infections, who presents to the emergency department complaining of chronic back pain and sudden onset vertigo today. The patient's states the vertigo began when changing positions. It is worsened by sitting forward or leaning. She denies associated ringing in ears, focal weakness / numbness or loss of consciousness. She states she has left-sided ear fullness. She is followed by ENT for multiple ear and sinus infections. She also complains of chronic moderate back pain. she denies loss of sensation in the groin loss of or bladder leg weakness. Related Data Home Medications ?Medication ?Instructions ?Recorded ?Confirmed ?Last Taken ?Type sucralfate 1 gram tablet 1 g PO TID PRN Acid Reflux 08/02/21 04/23/25 04/14/24 History ascorbic acid (vitamin C) 1,000 mg 1 g PO DAILY 05/12/22 04/23/25 09/12/24 History tablet (Vitamin C) aspirin 81 mg tablet,delayed 81 mg PO DAILY 05/12/22 04/23/25 09/12/24 History release turmeric 100 mg-benjy 150 1 cap PO DAILY 05/12/22 04/23/25 09/12/24 History mg-olive 50 mg-oreg 150 mg-capryl capsule hydrocortisone acetate 25 mg 25 mg RECTAL DAILY PRN CROHN'S EXAC 07/19/23 04/23/25 04/14/24 History rectal suppository mercaptopurine 50 mg tablet 50 mg PO DAILY 07/19/23 04/23/25 09/12/24 History sumatriptan succinate 50 mg tablet 50 mg PO ONCE PRN MIGRAINES 07/19/23 04/23/25 04/14/24 History (Imitrex) tizanidine 2 mg capsule 2 mg PO TID 07/25/23 04/23/25 09/12/24 History Allergies Allergy/AdvReac Type Severity Reaction Status Date / Time metronidazole (From Flagyl) Allergy Severe GI bleeding Verified 05/12/25 18:07 Sulfa (Sulfonamide Allergy Severe GI Bleeding Verified 05/12/25 18:07 Antibiotics) sulfamethoxazole (From Allergy Unknown Verified 05/12/25 18:07 Bactrim) trimethoprim (From Bactrim) Allergy Unknown Verified 05/12/25 18:07 hydrocodone (From Vicodin) AdvReac Severe Vomiting Verified 05/12/25 18:07 adhesive tape AdvReac Blister Verified 05/12/25 18:07 Review of Systems Review of Systems: All systems reviewed & are unremarkable except as noted in HPI and below PMFSH Past Medical History Medical History Lumbar spondylosis Fatigue Iron deficiency anemia Diabetes Factor V Leiden Osteomyelitis History of TIA (transient ischemic attack) Restless leg syndrome Insomnia Portal hypertension Atrial fibrillation 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 01/16/25 patient declined SDOH Smoking packs per day: 2 Smoking cigarettes per day: 40.0 Years smoked: 20 Smoking pack-years: 40.00 Smoking status: Former smoker Tobacco type: cigarettes Smoking end date: 10/23/15 Additional smoking assessment comments: Quit 2015. 35pk yr history Alcohol intake: former Substance use: former Substance use type: marijuana Other substance usage details: Marijuana tea daily Last use: 09/11 Do You Feel Safe in your Home?: Yes Lack of Transportation: YES Lack of Food: Often True Current Housing: I Have Housing Concerned About Future Housing: YES Difficulty Paying Gas/Electric Bills: YES Difficulty Paying for Meds: YES Currently Unemployed: YES Education: Bachelor's Degree Difficulty w/ Childcare or Family Care: No Living arrangements: with family Occupation/Education: retired Spiritual care concerns: No Exam Narrative: GENERAL: Well-developed, well-nourished, and in no acute distress. HEAD: Normocephalic, atraumatic. EYES: PERRLA and EOMI. ENT: Nares clear, no rhinorrhea or epistaxis. Mucous membranes moist. Oropharynx without tonsillar hypertrophy exudate or other lesions. The right TM is pearly bui without bulging. The left TM is dull and bulging with purulent fluid in the middle ear. NECK: Supple. No adenopathy or masses. CHEST: Clear to auscultation. No respiratory distress. No wheezes rales or rhonchi HEART: Regular rate and rhythm. No murmur heard. Normal peripheral pulses. ABDOMEN: Soft, nontender, nondistended, normal active bowel sounds. EXTREMITIES: Normal range of motion. No edema. SKIN: Warm, dry, no rash. NEURO: Alert and oriented x3. No focal deficit. Strength 5/5 in all extremities, sensation intact bilaterally, no noted ataxia. HINTS Exam not concerning for central vertigo. There is no noted nystagmus. PSYCH: Normal mood and affect. Course Course Emergency Course: 19:14 - On re-evaluation after meclizine, the patient states her dizziness is improved. I suspect otitis media and peripheral vertigo as the cause of the patient's symptoms. Will discharge with meclizine. The patient has had multiple rounds of antibiotics for otitis media and follows with ENT Dr. Peralta. She states this is previously improved with amoxicillin 1000 mg twice a day. Will trial this regimen again. I discussed the findings and recommendations with the patient. Discussed return and emergency precautions including signs/symptoms of intracranial hemorrhage and stroke. The patient voiced understanding and agreement with the plan. All questions answered to her satisfaction. Vital Signs Vital signs: Vital Signs Temperature 98.0 F 05/12/25 17:44 Pulse Rate 70 05/12/25 17:44 Respiratory Rate 18 05/12/25 17:44 Blood Pressure 132/77 05/12/25 17:44 Pulse Oximetry 96 05/12/25 17:44 Oxygen Delivery Room Air 05/12/25 17:44 Temperature 97.9 F 05/12/25 19:26 Pulse Rate 74 05/12/25 19:26 Respiratory Rate 18 05/12/25 19:26 Blood Pressure 140/78 05/12/25 19:26 Pulse Oximetry 98 05/12/25 19:26 Oxygen Delivery Room Air 05/12/25 19:26 MDM - Dizziness MDM Narrative Medical decision making narrative: plan: Meclizine, antibiotics, reassess Differential Diagnosis Differential diagnosis: Likely benign paroxysmal positional vertigo and other ( Otitis media peripheral vertigo, lumbar spondylosis, other) Discharge Plan Discharge Clinical Impression: Vertigo Otitis media Qualifiers: Otitis media type: suppurative Chronicity: acute Laterality: left Recurrence: recurrent Spontaneous tympanic membrane rupture: without spontaneous rupture Qualified Code(s): H66.005 - Acute suppurative otitis media without spontaneous rupture of ear drum, recurrent, left ear Patient Disposition: Home Condition: Stable Instructions: Antibiotic Form, Vertigo (ED) Additional Instructions: You were seen in the emergency department. I suspect Middle ear infection and pressure at the eardrum is the cause of your dizziness. Your given meclizine with improvement. I recommend a course of oral antibiotics and follow-up with your primary care doctor as well as Dr. Peralta. If you develop weakness/numbness, change/loss of vision / hearing, loss of consciousness, persistent vomiting, or if you have other emergent concerns for life, limb, or eyesight, return to the emergency department. Patient Language: Luxembourgish Prescriptions: New amoxicillin 500 mg tablet 1,000 mg PO Q12H 7 Days Qty: 28 0RF meclizine 25 mg tablet 25 mg PO TID PRN (Reason: dizziness) Qty: 20 0RF No Action ondansetron 4 mg tablet,disintegrating 4 mg PO Q4H 0 Days Qty: 10 0RF Rx Instructions: 1st dose 1-2 hr before radiation tizanidine 2 mg capsule 2 mg PO TID mupirocin [Centany] 2 % ointment 1 applic topical QID Qty: 44 3RF Rx Instructions: Melt 2 in in each irrigation bottle irrigate 4 times per day sucralfate 1 gram tablet 1 g PO TID PRN (Reason: Acid Reflux) ascorbic acid (vitamin C) [Vitamin C] 1,000 mg Tablet 1 g PO DAILY aspirin 81 mg Tablet,Delayed Release (Dr/Ec) 81 mg PO DAILY iessehru-pfzf-hussd-oreg-capry 100 mg-150 mg- 50 mg-150 mg Capsule 1 cap PO DAILY mercaptopurine 50 mg tablet 50 mg PO DAILY sumatriptan succinate [Imitrex] 50 mg Tablet 50 mg PO ONCE PRN (Reason: MIGRAINES) hydrocortisone acetate 25 mg suppository 25 mg RECTAL DAILY PRN (Reason: CROHN'S EXAC) Saccharomyces boulardii [Florastor] 250 mg Capsule 250 mg PO TID Qty: 30 0RF linezolid 600 mg Tablet 600 mg PO Q12HR Qty: 18 0RF Humira Pen 40 mg/0.8 mL pen injector kit See Rx Instructions subcut .Every other Week Qty: 2 10RF Rx Instructions: inject one - 40 mg/0.8 mL pen every other week subcut . pantoprazole 40 mg tablet,delayed release (DR/EC) 40 mg PO QAM Qty: 90 0RF cholecalciferol (vitamin D3) 1,250 mcg (50,000 unit) capsule See Rx Instructions .ROUTE .COMPLEX Qty: 12 5RF Dose Instruction: TAKE ONE CAPSULE BY MOUTH WEEKLY ON SUNDAY Rx Instructions: TAKE ONE CAPSULE BY MOUTH WEEKLY ON SUNDAY albuterol sulfate 2.5 mg /3 mL (0.083 %) solution for nebulization 2.5 mg inhalation Q4-6H PRN (Reason: shortness of breath or wheezing) Qty: 90 0RF albuterol sulfate 90 mcg/actuation HFA aerosol inhaler 2 inh inhalation Q4H PRN (Reason: shortness of breath or wheezing) Qty: 6.7 3RF ropinirole 1 mg tablet 1 mg PO DAILY Qty: 30 3RF paroxetine HCl [Paxil] 40 mg tablet 40 mg PO HS Qty: 90 1RF Eliquis 5 mg tablet 5 mg PO BID Qty: 60 3RF oxycodone-acetaminophen 10-325 mg tablet 1 tablet PO Q8H PRN (Reason: pain) Qty: 90 0RF alprazolam 0.5 mg tablet 0.5 mg PO BID Qty: 60 0RF eszopiclone 3 mg tablet 3 mg PO QHS Qty: 90 0RF Follow-up/Referrals: Kassandra Hooks APRN [Primary Care Provider] - 1 Week Time of Disposition: 19:18
[2025-05-12 19:26] VITALS: BP 140/78; PULSE 74; RESP 18; TEMP 36.6; O2SAT 98
== END 2025-05-12 19:26 | disposition home or self-care (01) ==
PROVIDERS: Emergency Provider Preventive Medicine Aerospace Medicine; PCP Nurse Practitioner Family
DX: H66.005 Acute suppurative otitis media without spontaneous rupture of ear drum, recurrent, left ear (principal); E11.9 Type 2 diabetes mellitus without complications; I48.91 Unspecified atrial fibrillation; Z86.73 Personal history of transient ischemic attack (TIA), and cerebral infarction without residual deficits; Z87.891 Personal history of nicotine dependence
CPT/HCPCS: 99283; A9270

== ENCOUNTER 2025-07-21 17:03 | Emergency (ER) | payer BC, MEDICAID, SELFPAY ==
--- OUTSIDE RECORDS SUMMARY | 2016-01-18 10:45 | XMS_ITS | Continuity of Care Document ---
Author Organization [facility] Address [address] [place] [address] Phone Care Team Providers Care Special Agent Fbi Name Role Phone Lorrie HUYNH, Meeta Unavailable Unavailable Advance Directives Directive Yes / No Effective Date File Name No Information Encounters Encounter Description Practice Location Reason(s) For Visit Diagnoses Date Provider Providers Copied on Encounter [facility], [facility], [address], [place] tel:[phone] [facility] No Information Lorrie Tim. [address] [place], [place], [address], [place]. tel:[phone] Family History Family Member Type Diagnosis Age At Onset Mother Problem (finding) malignant neoplasm of l kaitlyner Father Problem (finding) hypertension Payers Payer name Insurance type Covered republican ID Authoriza tion(s) [facility] Ppo/EPO BL [id number] Social History Type Description Quantity Date Captured [...]
--- OUTSIDE RECORDS SUMMARY | 2016-01-18 10:45 | XMS_ITS | Continuity of Care Document ---
Author Organization [facility] Address [address] [place] [address] Phone Care Team Providers Care Criminal Justice Lawyer Name Role Phone Lorrie HUYNH, Meeta Unavailable Unavailable Advance Directives Directive Yes / No Effective Date File Name No Information Encounters Encounter Description Practice Location Reason(s) For Visit Diagnoses Date Provider Providers Copied on Encounter [facility], [facility], [address], [place] tel:[phone] [facility] No Information Lorrie Tim. [address] [place], [place], [address], [place]. tel:[phone] Family History Family Member Type Diagnosis Age At Onset Mother Problem (finding) malignant neoplasm of l kaitlyner Father Problem (finding) hypertension Payers Payer name Insurance type Covered constitution party ID Authoriza tion(s) [facility] Ppo/EPO BL [id number] Social History Type Description Quantity Date Captured [...]
--- OUTSIDE RECORDS SUMMARY | 2016-10-11 07:00 | XMS_ITS | Continuity of Care Document ---
Author Organization [facility] Address [address] [place] [address] Phone Care Team Providers Care Fish Rod Maker Name Role Phone Zahira Isbell MD Unavailable Unavailable Procedures Procedure Date Electrocardiogram report Advance Directives Directive Yes / No Effective Date File Name No Information Encounters Encounter Description Practice Location Reason(s) For Visit Diagnoses Date Provider Providers Copied on Encounter [facility], [address], [place], [place], [address], [place] tel:[phone] [facility] No Information 6 Sukhi Rodriges. [address] [place] [address], [facility], [place]. tel:[phone] Family History Family Member Type Diagnosis Age At Onset No Information Payers Payer name Insurance type Covered green party ID Authoriza tion(s) [facility] PPO BL [id number] Social History Type Description Quantity Date Captured [...]
--- OUTSIDE RECORDS SUMMARY | 2016-10-11 07:00 | XMS_ITS | Continuity of Care Document ---
Author Organization [facility] Address [address] [place] [address] Phone Care Team Providers Care City Jailer Name Role Phone Zahira Isbell MD Unavailable Unavailable Procedures Procedure Date Electrocardiogram report Advance Directives Directive Yes / No Effective Date File Name No Information Encounters Encounter Description Practice Location Reason(s) For Visit Diagnoses Date Provider Providers Copied on Encounter [facility], [address], [place], [place], [address], [place] tel:[phone] [facility] No Information 6 Sukhi Rodriges. [address] [place] [address], [facility], [place]. tel:[phone] Family History Family Member Type Diagnosis Age At Onset No Information Payers Payer name Insurance type Covered democrat ID Authoriza tion(s) [facility] PPO BL [id number] Social History Type Description Quantity Date Captured [...]
--- NOTE | ~2025-07-21 | US_ITS ---
EXAMINATION:US venous doppler LE LT INDICATION:Left leg pain TECHNIQUE: Multiple grayscale, color flow and Doppler images of the left lower extremity deep venous systems were obtained and reviewed. COMPARISON:No prior studies for comparison. FINDINGS: There is deep venous thrombosis of the left popliteal and gastrocnemius veins. Remainder of the left lower extremity veins are patent. IMPRESSION: 1: Deep venous thrombosis left popliteal and gastrocnemius veins. Reviewed, dictated and finalized at location O.
--- OUTSIDE RECORDS SUMMARY | 2025-07-21 17:06 | XMS_ITS | Encounter Summary ---
Author Organization [facility] Address [address] [place] [address] Phone Care Team Providers Care Clinical Trials Manager Name Role Phone Jesus Gonzalez DO Primary Care Provider Odilon Vyas MD Primary Care Provider + [phone] Lucho Peralta MD Unavailable Xiomara Carlos MD Primary Care Provider [phone] Odilon Vyas MD Primary Care Provider + [phone] Unknown, Notinfile Primary Care Provider Unavail able Kassandra Hooks NP Primary Care Provider + Encounter Details Date Type Department Care Team (Latest Contact Info) Description 08/02/2015 Orders Only [facility] CARDIOLOGY Chasity Borjas, CARMINA [address] [facility] [address] [place], [place] [id number] Social History Tobacco Use Types Packs/Day Years Used Date Smoking Tobacco: Never Assessed Comments Unknown Sex and Gender Information Value Date Recorded Sex Assigned at Not on file 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 Gender Identity Female 06/12/2023 3:27 PM CDT [...] filedocumented in this encounter Care Teams Clinical Trials Manager Relationship Specialty Start Date End Date Jesus Gonzalez DO [address] [place] [address] PCP - General Family Medicine 10/26/21 02/07/23 Odilon Vyas MD [address] [place] [address] PCP - General Family Medicine 02/08/23 02/07/24 Xiomara Carlos MD [address] [place] [address] PCP - General Psychiatry 02/08/24 03/23/24 Odilon Vyas MD [address] [place] [address] PCP - General Family Medicine 03/24/24 08/12/24 Unknown, Notinfile PCP - General 08/13/24 08/26/24 Kassandra Hooks NP PCP - General Nurse Practitioner 08/27/24 Lucho Peralta MD [address] [place] [address] Referring Physician Otolaryngology 12/07/23 documented as of this encounter
--- OUTSIDE RECORDS SUMMARY | 2025-07-21 17:06 | XMS_ITS | Encounter Summary ---
Author Organization [facility] Address [address] [place] [address] Phone Care Team Providers Care Tip Bander Name Role Phone Jesus Gonzalez DO Primary Care Provider Odilon Vyas MD Primary Care Provider + [phone] Lucho Peralta MD Unavailable Xiomara Carlos MD Primary Care Provider [phone] Odilon Vyas MD Primary Care Provider + [phone] Unknown, Notinfile Primary Care Provider Unavail able Kassandra Hooks NP Primary Care Provider + Encounter Details Date Type Department Care Team (Latest Contact Info) Description 05/10/2015 Orders Only [facility] CARDIOLOGY Chasity Borjas, CARMINA [address] [facility] [address] [place], [place] [id number] Social History Tobacco Use Types Packs/Day Years Used Date Smoking Tobacco: Never Assessed Comments Unknown Sex and Gender Information Value Date Recorded Sex Assigned at Not on file 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 Gender Identity Female 06/12/2023 3:27 PM [...] on filedocumented in this encounter Care Teams Tip Bander Relationship Specialty Start Date End Date Jesus Gonzalez DO [address] [place] [address] PCP - General Family Medicine 10/26/21 02/07/23 Odilon Vyas MD [address] [place] [address] PCP - General Family Medicine 02/08/23 02/07/24 Xiomara Carlos MD [address] [place] [address] PCP - General Psychiatry 02/08/24 03/23/24 Odilon Vyas MD [address] [place] [address] PCP - General Family Medicine 03/24/24 08/12/24 Unknown, Notinfile PCP - General 08/13/24 08/26/24 Kassandra Hooks NP PCP - General Nurse Practitioner 08/27/24 Lucho Peralta MD [address] [place] [address] Referring Physician Otolaryngology 12/07/23 documented as of this encounter
--- OUTSIDE RECORDS SUMMARY | 2025-07-21 17:06 | XMS_ITS | Clinical Summary ---
Author Organization [facility] Address [address] [place] [address] Care Team Providers Care Medication Specialist Name Role Phone EstelaranjithJesus mena Primary Care Provider [phone] Allergies Active Allergy Reactions Criticality Noted Date Comments Hydrocodone-Acetaminop hen Other (See Comments),Nausea and Vomiting High 05/29/2016 Vincent Latex Itching High 08/10/2016 Lidocaine-Transparent Dressing Itching [...] Encounters Date Type Department Care Team Description 07/08/2025 External Device Data [facility] ABSTRACTION Provider, Abstract 06/24/2025 External Device Data [facility]STRACTION Provider, Abstract 06/23/2025 External Device Data [facility]CTION Provider, Abstract 06/03/2025 External Device Data [facility] Provider, Abstract 06/03/2025 External Device Data [facility]STRACTION Provider, Abstract 05/06/2025 External Device Data [facility]STRACTION Provider, Abstract 04/21/2025 External Device Data [facility] Provider, Abstract [...] on file Legal Sex Female 12:[address] Gender Identity Not on file Sexual Orientation [...] 10:32 AM CDT Height 165.1 cm (5' 5) 02/24/2022 10:3 2 AM CDT Body Mass Index 32.9 02/24/2022 10:32 AM CDT Plan of Treatment Health Maintenance Due Date Last Done Comments DTAP/TDAP/TD VACCINES (1 - Tdap) 1990 HEPATITIS B VACCINES (1 of 3 - 19+ 3-dose series) 1990 HPV/Cotest (21-29) 1992 CERVICAL CANCER SCREENING 2001 HPV/Cotest (30-65) 2001 PAP SMEAR 2001 BREAST CANCER SCREENING 2011 ZOSTER VACCINE (1 of 2) 2021 INFLUENZA VACCINE (#1) 2025 COLORECTAL SCREENING Discontinued 03/14/2023, 03/14/20 23 Colorectal Cancer Screening Discontinued FIT-DNA Q 3 years Discontinued FIT/FOBT Q 1 year Discontinued Flex Sig/CT Colonography Q [address] [place] [place] [address] PREFERRED Care Teams Medication Specialist Relationship Specialty Start Date End Date Jesus Gonzalez DO [address] [place] [address] PCP - General Family Practice 01/17/22
--- OUTSIDE RECORDS SUMMARY | 2025-07-21 17:06 | XMS_ITS | Encounter Summary ---
Author Organization [facility] Address [address] [place] [address] Phone Care Team Providers Care Information Technology Manager Name Role Phone Jesus Gonzalez DO Primary Care Provider Odilon Vyas MD Primary Care Provider + [phone] Lucho Peralta MD Unavailable Xiomara Carlos MD Primary Care Provider [phone] Odilon Vyas MD Primary Care Provider + [phone] Unknown, Notinfile Primary Care Provider Unavail able Kassandra Hooks NP Primary Care Provider + Encounter Details Date Type Department Care Team (Latest Contact Info) Description 08/21/2015 Orders Only [facility] C[facility] Chasity Borjas, CARMINA [address] [facility] [address] [place], [place] [id number] Social History Tobacco Use Types Packs/Day Years Used Date Smoking Tobacco: Never Assessed Comments Unknown Sex and Gender Information Value Date Recorded Sex Assigned at Not on file 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 Gender Identity Female 06/12/2023 3:27 PM CDT [...] on filedocumented in this encounter Care Teams Information Technology Manager Relationship Specialty Start Date End Date Jesus Gonzalez DO [address] [place] [address] PCP - General Family Medicine 10/26/21 02/07/23 Odilon Vyas MD [address] [place] [address] PCP - General Family Medicine 02/08/23 02/07/24 Xiomara Carlos MD [address] [place] [address] PCP - General Psychiatry 02/08/24 03/23/24 Odilon Vyas MD [address] [place] [address] PCP - General Family Medicine 03/24/24 08/12/24 Unknown, Notinfile PCP - General 08/13/24 08/26/24 Kassandra Hooks NP PCP - General Nurse Practitioner 08/27/24 Lucho Peralta MD [address] [place] [address] Referring Physician Otolaryngology 12/07/23 documented as of this encounter
--- OUTSIDE RECORDS SUMMARY | 2025-07-21 17:06 | XMS_ITS | Clinical Summary ---
Author Organization [facility] Address [address] [place] [address] Care Team Providers Care Councilor Name Role Phone Joanne Dawkins MD Primary Care Provider [phone] Allergies Active Allergy Reactions Criticality Noted Date Comments Amoxicillin-Pot Clavulanate Other (see comment) Low 02/06/2023 Makes Crohn's flare up Hydrocodone-Acetaminop hen Nausea and Vomiting,Other (see comment) High 05/29/2016 Jellico Latex Itching High 08/10/2016 Lidocaine Itching Low 08/10/2016 Silver Other (see comment) High 07/19/2023 Tegaderm dressing- used with PICC line (long-term is when she had reaction) Sulfa Antibiotics [...] P M CDT Height 165.1 cm (5' 5) 09/12/2024 1:40 PM CDT Body Mass Index [...] Vaccines (1 of 2) 2021 PHQ-2 (Physician [place]) 11/19/2024 09/12/2024 COVID-19 Vaccine (1 - 2023-2 5 season) 2025 Postponed from 07/20 (Patient Refused) RSV Immunizations Under 20 Months Aged Out No longer eligible based on patient's age to complete this topic Insurance Care Teams Councilor Relationship Specialty [place] [address] [facility] [address] [place] [id number] PCP - General INTERNAL MEDICINE 09/09/24
--- OUTSIDE RECORDS SUMMARY | 2025-07-21 17:06 | XMS_ITS | Encounter Summary ---
Author Organization [facility] Address [address] [place] [address] Phone Care Team Providers Care Label Printer Name Role Phone Jesus Gonzalez DO Primary Care Provider Odilon Vyas MD Primary Care Provider + [phone] Lucho Peralta MD Unavailable Xiomara Carlos MD Primary Care Provider [phone] Odilon Vyas MD Primary Care Provider + [phone] Unknown, Notinfile Primary Care Provider Unavail able Kassandra Hooks NP Primary Care Provider + Encounter Details Date Type Department Care Team (Latest Contact Info) Description 08/17/2015 Orders Only [facility]ARD[facility]OLOG[facility] Chasity Borjas, CARMINA [address] [facility] [address] [place], [place] [id number] Social History Tobacco Use Types Packs/Day Years Used Date Smoking Tobacco: Never Assessed Comments Unknown Sex and Gender Information Value Date Recorded Sex Assigned at Not on file 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 Gender Identity Female 06/12/2023 3:27 PM CDT [...] on filedocumented in this encounter Care Teams Label Printer Relationship Specialty Start Date End Date Jesus Gonzalez DO [address] [place] [address] PCP - General Family Medicine 10/26/21 02/07/23 Odilon Vyas MD [address] [place] [address] PCP - General Family Medicine 02/08/23 02/07/24 Xiomara Carlos MD [address] [place] [address] PCP - General Psychiatry 02/08/24 03/23/24 Odilon Vyas MD [address] [place] [address] PCP - General Family Medicine 03/24/24 08/12/24 Unknown, Notinfile PCP - General 08/13/24 08/26/24 Kassandra Hooks, EDWIGE PCP - General Nurse Practitioner 08/27/24 Lucho Peralta MD [facility] [place] [address] Referring Physician Otolaryngology 12/07/23 documented as of this encounter
--- OUTSIDE RECORDS SUMMARY | 2025-07-21 17:06 | XMS_ITS | Encounter Summary ---
Author Organization [facility] Address [address] [place] [address] Care Team Providers Care Severity Of Illness Coordinator Name Role Phone Odilon Vyas MD Primary Care Provider [phone] Lucho Peralta MD Unavailable Xiomara Carlos MD Primary Care Provider [phone] Odilon Vyas MD Primary Care Provider [phone] Unknown, Notinfile Primary Care Provider Unavail able Kassandra Hooks NP Primary Care Provider + Encounter Details Date Type Department Care Team (Late st Contact Info) Description 01/18/2024 Telephone [facility] [address] [address], [address] [place] [address] Massimo Glynn MD [address] [address] Social History Tobacco Use Types Packs/Day Years [...] on file 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 Gender Identity Female 06/12/2023 3:27 PM [...] on filedocumented in this encounter Care Teams Severity Of Illness Coordinator Relationship Specialty Start Date End Date Odilon Vyas MD [address] [place] [address] PCP - General Family Medicine 02/08/23 02/07/24 Xiomara Carlos MD [address] [place] [address] PCP - General Psychiatry 02/08/24 03/23/24 Odilon Vyas MD [address] [place] [address] PCP - General Family Medicine 03/24/24 08/12/24 Unknown, Notinfile PCP - General 08/13/24 08/26/24 Kassandra Hooks NP PCP - General Nurse Practitioner 08/27/24 Lucho Peralta MD [address] [place] [address] Referring Physician Otolaryngology 12/07/23 documented as of this encounter
--- OUTSIDE RECORDS SUMMARY | 2025-07-21 17:06 | XMS_ITS | Encounter Summary ---
Author Organization [facility] Address [address] [place] [address] Phone Care Team Providers Care Dough Raiser Name Role Phone Lucho Peralta MD Unavailable Odilon Vyas MD Primary Care Provider [phone] Unknown, Notinfile Primary Care Provider Unavail able Kassandra Hooks NP Primary Care Provider + Encounter Details Date Type Department Care Team (Late st Contact Info) Description 06/24/2024 Orders Only [facility] Medicine Gastroenterology [address] [facility] [address], [address] [place] [address] Irma Dillon MD [address] [place] [address] Social History Tobacco Use Types [...] on file 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
--- OUTSIDE RECORDS SUMMARY | 2025-07-21 17:06 | XMS_ITS | Clinical Summary ---
Author Organization [facility] Address [address] [place] [address] Care Team Providers Care Psychiatric Cns Name Role Phone Lucho Peralta MD Unavailable Kassandra Hooks NP Primary Care Provider + Allergies Active Allergy Reactions Criticality Noted Date Comments Amoxicillin-Pot Clavulanate Other (See comments) Low 02/06/2023 Makes Crohn's flare up Sulfamethoxazole-Trime thoprim Other (See comments) Low 02/06/2023 Makes Crohn's flare up Hydrocodone-Acetaminop hen Nausea And Vomiting Medium 05/29/2016 [place] Itching High 08/10/2016 Silver Blisters,Other (See comments) High 07/19/2023 Tegaderm dressing- used with PICC line (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) Sulfa Other [...] and nightly 90 capsule 3 022 Active Additional Information Patient not taking.Reported on 06/25/2025 sucralfate (CARAFATE) 1 gram tablet Take 1 tablet (1 g total) by mouth 3 (three) times a day 90 tablet 1 022 Active Additional Information Patient taking differently:1 g oralAs needed, Reported on 06/25/2025 ondansetron ODT (ZOFRAN-ODT) 4 mg disintegrating tablet DISSOLVE ONE TABLET ON TONGUE EVERY 8 HOURS NEEDED FOR NAUSEA OR VOMITING 30 tablet 1 022 Active chlorhexidine (PERIDEX) 0.12 % solutionIndication s:Mouth Infection Prevention Apply 15 mL to the mouth or throat 2 (two) times a day as needed (Uses right before takes Anat (gets sores in mouth couple days before gets Anat)) Active PARoxetine (PAXIL) 40 mg tabletIndications: Generalized Anxiety Disorder,Started in [place] r/t anxiety and nerves/ chronic pain Take 1 tablet (40 mg total) by mouth nightly 023 Active cyanocobalamin (Vitamin B-12) 1,000 mcg sublingual tabletIndications: Prevention of Vitamin B12 Deficiency Take 1 tablet (1,000 mcg total) by mouth operations leader before breakfast No particular days Active turmeric [...] (1 mg total) by mouth nightly Active calcium citrate-vitamin D3 (CITRACAL WITH D) [...] Active ciprofloxacin (CILOXAN) 0.3 % ophthalmic solution [address] (NexIUM) 40 mg capsule daily Active ketorolac (ACULAR) 0.5 % ophthalmic solution 024 Active diphenoxylate-atro pine (LOMOTIL) 2.5-0.025 mg per tablet TAKE 1 TABLET BY MOUTH 4 (FOUR) TIMES A DAY NEEDED FOR DIARRHEA 120 tablet 1 Active rosuvastatin (CRESTOR) 40 mg tablet TAKE ONE TABLET BY MOUTH DAILY 30 tablet Active Additional Information Patient not taking.Reported on 06/25/[address] (PROTONIX) 40 mg EC tablet TAKE ONE TABLET BY MOUTH IN THE MORNING BEFORE BREAKFAST 30 tablet 11 Active amoxicillin 500 mg capsule as needed (Prior to dental work.) 04/29/2 025 Active eszopiclone (LUNESTA) 3 mg tablet Active oxyCODONE-acetamin ophen (PERCOCET) 10-325 mg per tablet Active Humira Pen 40 mg/0.8 mL pen injector kitIndications: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 Inject 0.8 mL (40 mg total) under the skin every 7 days Sundays each Active predniSONE (DELTASONE) 5 mg tablet Take 0.5 tablets (2.5 mg) by mouth daily 15 tablet 025 Active mercaptopurine (PURINETHOL) 50 mg tabletIndications: Crohn's Disease Take 1 tablet (50 mg total) by mouth daily Safety Labs due: 06/2025 30 tablet 2 Active tiZANidine (ZANAFLEX) 2 mg tablet TAKE ONE TABLET BY MOUTH EVERY SIX HOURS NEEDED FOR MUSCLE SPASM 120 tablet Active hydrocortisone 2.5 % creamIndications:P rurigo nodularis Apply to aa on face and itchy spots BID 30 g 3 025 Active plecanatide (Trulance) 3 mg tabletIndications: Other constipation Take 1 tablet (3 mg total) by mouth daily Please update office on your symptoms in 1 week. 30 tablet 1 Active linaCLOtide (LINZESS) 145 mcg capsule Take 1 capsule (145 mcg total) by mouth daily 30 capsule 3 025 2024 Discontinued Active Problems Problem Noted Date Diagnosed Date Iron deficiency anemia 02/11/2025 Immunodeficiency 10/17/2024 Chronic uveitis of both eyes 09/14/2024 Factor V deficiency 09/14/2024 RLS (restless legs syndrome) 09/14/2024 Chronic obstructive pulmonary disease, unspecifi ed 09/08/2024 Hip pain 02/25/2024 Eustachian tube dysfunction, bilateral Chronic sinusitis 01/01/2024 Assessment & Plan (04/07/2025 2:59 PM CDT): -Patient presents to clinic for a new patient appointment for recurrent sinusitis. -We will get previous imaging and records from outside facilities. -We reached out to Dr. Hummel to get his input on her case and he recommended and allergy and immunology referral given her history of Crohns disease and that could be related to that. -We will defer to ENT if there is any other interventions that could be done or underlying etiology for her recurrent crusting other than repeated trauma. -If there is concern of infection, then cultures would need to be obtained in sterile fashion. -No indication for IV or oral antibiotics today, there is low concern of infection today. Her symptoms are not consistent with infection. -Encouraged continued use of prescribed regimens from ENT -Would encourage patient to leave scabs alone to see if they could heal -Last ENT scope with crusting and scabs -We will re-refer to allergy and immunology per ENT recommendations. She has extracolonic manifestations from crohns per rheumatology. Unclear if this could also be contributing to her sinus symptoms. - Discussed with patient the rational for treatment, culture results, risk of recurrent infection, signs/symptoms of recurrent infection, and to contact ID clinic with any questions or concerns. Combined forms of age-related cataract of right eye 12/05/2023 S/P cataract extraction and insertion of intraocular lens, left 11/13/2023 Assessment & Plan (11/13/2023 4:00 PM CONTROL AREA OPERATOR): PO2W cataract extraction (CE)/posterior chamber intraocular [...] 11:16 AM CDT): Pt self treats wit cyrus fortmago (PF) , stressed importance of being treated [...] referral. - We will have MRE from [facility] read by our radiologists. Assessment & Plan (02/06/2023 12:22 PM CDT): MRE on 12/08/22 showed cystic lesions of the pancreas measuring up to 6mm. The patient only had an image of the impression of this report, and we do not have access to the report or study itself. - Patient has given authorization to release MRE report from [facility]. We will also obtain the images [...] her abdominal pain on recent MRE at [facility]. We will obtain this study and [...] valve Surgeries: ileocolic resection in 2019 at [facility] - 6 inches of small bowel [...] traverse the IC valve, prompting ileocolic resection ([facility]) - [address] incidentally [...] traverse the IC valve, prompting ileocolic resection ([facility]) - [address] incidentally [...] traverse the IC valve, prompting ileocolic resection ([facility]) - 6 inches resected. Path incidentally [...] dose. Assessment & Plan (10/23/2022 11:27 AM CONTROL AREA OPERATOR): Diagnosis in 2014. Humira since Mar, [...] by patient yet. -recent blood work from [facility] reviewed. Noted to have urinalysis, CBC, [...] continue. Assessment & Plan (09/25/2022 10:44 AM CONTROL AREA OPERATOR): Diagnosis in 2014. Humira since Mar, [...] today -Talked to her GI group at [facility] Dr Torres on-call, suggested if pt is stable to d/c to be admitted to [facility] work her up further. Talking to the [...] Encounters Date Type Department Care Team Description 07/10/2025 Telephone [facility] at the [address] [place] [address] Melvin Oneill DO Scheduling Appointments 07/08/2025 Documentation [facility] Medicine Gastroenterology [address] [place] [address] [place] [address] [place] [address] Koki Garcia LPN Switch from Linzess to Trulance 06/30/2025 9:30 AM CDT Office Visit [facility] Dermatology [address] [place] [address] Caty Butterfield MD PhD Prurigo nodularis (Primary Dx); Scar; History of Crohn's disease 06/29/2025 Documentation [facility] Gastroenterology [address] [place] [address] Montrell Kern MD 06/26/2025 Telephone [facility] Gastroenterology [address] [place] [address] [place] [address] Daiana Rodríguez RMA 06/25/2025 4:00 PM CDT Office Visit [facility] Gastroenterology [address] [place] [address] [place] [address] [place] [address] Corazon Becerra NP Crohn's disease of both small and large intestine with other complication (Primary Dx); High risk medications (not anticoagulants) long-term use; Factor V deficiency (HCC); Malignant neoplasm of appendix (HCC); Chiari malformation type I (HCC) 06/23/2025 Telephone [facility] Gastroenterology [address] [place] [address] [place] [address] [place] [address] Daiana Rodríguez RMA rash 05/19/2025 Telephone [facility] Medicine Gastroenterology [address] [place] [address] [place] [address] Daiana Rodríguez RMA 05/14/2025 4:00 PM CDT Office Visit [facility] - [facility] Medicine ENT [address] [place] [address] [place] [address] Josh Hummel MD Chronic pansinusitis (Primary Dx); Chronic sinusitis, unspecified location; Recurrent epistaxis from Last 3 Months Surgical History Surgery Date Site/Laterality Comments COLONOSCOPY 05/11/2020 [place] SINUS SURGERY 09/28/2016 Successful embolization of left [...] 02/25/2024 Right SMALL INTESTINE SURGERY ABDOMINAL SURGERY AMPUTATION DENTAL SURGERY Medical History Medical History Date Comments [...] ischemic attack) 2007 Arthritis Osteoporosis Clotting disorder Cataract Brain concussion Neuromuscular disorder Peptic ulceration 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 GI (gastrointestinal bleed) Infection Sinusitis Deep vein thrombosis (HCC) COPD (chronic obstructive pu lmonary disease) Varicella Pneumonia Osteomyelitis MRSA (methicillin resistant Staphylococcus aureus) Foot ulcer (HCC) Cellulitis Measles Shingles Family History Medical History Relation Name Comments Cancer Brother 1 Zachariah Cirrhosis Brother 1 Zachariah Depression Brother 1 [...] Isaías Chronic Pain Father Isaías Depression Father Siaías Hearing loss Father Isaías Heart attack Father Isaías Heart disease Father Isaías Hypertension Father Isaías Kidney disease Father Isaías Memory loss Father Isaías Osteoarthritis Father Isaías Psoriasis Father Isaías Stroke Father Isaías Bladder Cancer Father's Brother 1 Cancer Father's Brother 2 Cameron Jr. Hearing loss Father's Brother 2 Cameron Jr. Hypertension Father's Brother 2 Cameron Jr. Kidney disease Father's Brother 2 Cameron Jr. Rashes / Skin problems Father's Brother 2 Cameron Jr. Memory loss Father's Sister 1 Bonnie Obesity Father's Sister 2 Ling Rashes / Skin problems Father's Sister 2 Ling Alzheimer's disease Maternal Grandfather Samaria Bleeding Disorder Maternal Grandfather Samaria Hearing loss Maternal Grandfather Samaria Thrombocytopenia Maternal Grandfather Samaria Alzheimer's disease Maternal Grandmother Candy Dementia Maternal Grandmother Candy Memory loss Maternal Grandmother Candy Stroke Maternal Grandmother Candy Alzheimer's disease Mother Harika-Bello Anemia Mother Harika-Bello Bleeding Disorder Mother Harika-Bello COPD Mother Harika-Bello Chronic Pain Mother Harika-Bello Cirrhosis Mother Harika-Bello Liver Crohn's disease Mother Ahrika-Bello Depression Mother Harika-Bello Hearing loss Mother Harika-Bello [...] Brother 5 Redd Hearing loss Mother's Sister 1 Karin Memory loss Mother's Sister 1 Karin Miscarriages / Stillbirths Mother's Sister 1 Karin Thyroid disease Mother's Sister 1 Karin Thyroid disease Mother's Sister 2 Xochitl Elle Bladder Cancer Paternal Grandfather Cameron Sr. Cancer [...] Sister 1 Tess Hypertension Sister 1 Tess Migraines Sister 1 Tess Miscarriages / Stillbirths Sister 1 Tess PONV Sister 1 Tess Rashes / Skin problems Sister 1 Tess Stroke Sister 1 Tess Thyroid disease Sister 1 Tess Arnold-Chiari malformation Sister 2 Lupus Sister 2 Arthritis Sister 3 Bree Chronic Pain Sister 3 Bree Depression Sister 3 Bree Rashes / Skin problems Sister 3 Rbee No Known Problems Sister 4 Relation Name Status Comments Brother 1 Zachariah Alive Brother 2 Parrish Alive Brother 3 Alive Father Isaías Father's Brother 1 Father's Brother 2 Cameron Jr. Father's Sister 1 Bonnie Father's Sister 2 Ling Maternal Grandfather Samaria Maternal Grandmother Candy Mother Harika-Bello Mother's Brother 1 Norm Mother's Brother 2 Josh Mother's Brother 3 Sal Mother's Brother 4 Hank Mother's Brother 5 Redd Mother's Sister 1 Karin Mother's Sister 2 Xochitl Almeida Alive Paternal Grandfather Cameron Rock. Paternal Grandmother Lin Sister 1 Tess Alive [...] often do you have a drink containing alc ohol? Never 09/18/2024 Average Number of Drinks Not on file 024 Frequency of Binge Drinking Not on file 08/21 PHQ-2 Answer Date Recorded PHQ-2 Total Score [...] on file Legal Sex Female 10:13 AM CONTROL AREA OPERATOR Gender Identity Female 06/12/2023 3:27 PM CDT Sexual Orientation Lesbian 06/12/2023 3: 27 PM CDT Obstetrics History Last Filed Vital Signs Vital Sign Reading Time Taken Comments Blood Pressure 104/64 06/25/2025 3:46 PM CDT Pulse 80 06/25/2025 3:46 PM CDT Temperature 36.2 C (97.1 F) 06/25/2025 3:46 PM CDT Respiratory Rate 16 04/06/2025 2:52 PM CDT Oxygen Saturation 99% 04/09/2025 4:32 PM CDT Inhaled Oxygen Concentration - - Weight 78.1 kg (172 lb 3.2 oz) 06/25/2025 3:46 P M CDT Height 165.1 cm (5' 5) 06/25/2025 3:46 PM CDT Body Mass Index 28.66 06/25/2025 3:46 PM CDT Plan of Treatment Scheduled Procedures Name Priority Associated Diagnoses Date/Ti me COLONOSCOPY Iron deficiency Health Maintenance Due Date Last Done Comments Breast Cancer Screening-Mammogram 1971 Cervical Cancer Screening 1971 Hepatitis C Screening 1971 DTaP/Tdap/Td Vaccine (1 - Tdap) 1982 Hepatitis B Screening 1989 Regular Well Visit/Exam 18-64 1989 Pneumococcal vaccine <65 (1 of 2 - PCV) 1990 Zoster Vaccine (1 of 2) 1990 Depression Screening 09/25/2023 09/25/2022, 04/24/20 Influenza Vaccine (#1) 2025 Lung Cancer Screening 10/14/2025 10/13/2024 Colon Cancer Screening-Colonoscopy 02/11/20352024, 03/14/2023 Goals Goal Patient Goal Type Associated Problems Recent Progress Patient-Stated? Author CCM Chronic Pain Care Plan Chronic Care Management Worsening( 8:52 AM CDT) Lashawn Cates, RN Note: Problem: Chronic Pain Goals: 1. Minimize further functional decline 2. Maximize quality of life 3. Control pain Strategies: - Activity/exercise program recommendation - Conservative stepwise pain medicine strategy with multi-disciplinary approach - Recommend healthy lifestyle strategies and compensatory methods as needed Medical Devices Implanted Type Area Oyster Tonger Device Identifier Shelf Expiration Date Model / Serial / Lot [employer] Lens Iol Cna0t0.230 Clareon Uva Autonom Cna0t0.230 - [id number] - [id number] Implanted:Qty: 1 on 10/29/2023 by Melvin San MD at [facility] Left: Eye [employer] [id number] 06/25/2026 CNA0T0.23 0 / [id number] / Procedures Procedure Name Priority Date/Time Associated Diagnosis Comments COLONOSCOPY 02/11/2025 9:[address] LUNG CANCER SCREENING Schedule Routine, Read Routine (OP Routine) 10/13/2024 4:36 PM CONTROL AREA OPERATOR Nicotine dependence, cigarettes, in remission from Last 3 Months or Most Recently Relevant to Health Maintenance Results * Colonoscopy (02/11/2025 9:16 AM CDT) Anatomical Region Laterality Modality Other Narrative Procedure Note Montrell Kern MD - 02/11/2025 9:16 AM CDT ENDOSCOPY LAB Patient Name: Danette Thomas Procedure Date: 02/11/2025 9:16 AM Date of : 1970 Admit Type: Outpatient Age: 54 Gender: Female Attending MD: Montrell Kern M.D. Room: [facility] ENDOSCOPY ROOM 05 Note Status: Finalized Procedure: Colonoscopy Indications: High risk colon cancer surveillance: Crohn'scolitis of 8 (or more) years duration with one-third (ormore) of the colon involved Providers: Montrell Kern M.D. Referring MD: Kassandra Hooks, EDWIGE Medicines: See the Anesthesia note for documentation [...] The scope was passed under direct vision.The [id number] was introduced through the anusand advanced to the terminal ileum. The colonoscopy was performed without difficulty. The patient tolerated the procedure well. The quality of the bowel preparation was adequate. The terminal ileum was photographed. Findings: The perianal and digital rectal examinations were normal. The Simple Endoscopic Score for Crohn's Disease was determined basedon the endoscopic appearance of the mucosa in the following segments: - Ileum: Findings include no ulcers present, no ulcerated surfaces,no affected surfaces and no narrowings. Segment score: 0. - Right Colon: Findings include no ulcers present, no ulcerated surfaces, no affected surfaces and no narrowings. Segment score: 0. - Transverse Colon: Findings include no ulcers present, no ulcerated surfaces, no affected surfaces and no narrowings. Segment score: 0. - Left Colon: Findings include no ulcers present, no ulceratedsurfaces, no affected surfaces and no narrowings. Segment score: 0. - Rectum: Findings include no ulcers present, no ulcerated surfaces,no affected surfaces and no narrowings. Segment score: 0. - Total SES-CD aggregate score: 0. Biopsies were taken with a cold forceps for histology. There was evidence of a prior [id number] ileo-colonic anastomosisin the ascending colon. This was patent and was characterized by healthy appearing mucosa. The anastomosis was traversed. Biopsies were taken with a cold forceps for histology. A 3 mm polyp was found in the descending colon. The polyp wassessile. The polyp was removed with a cold snare. Resection and retrieval were complete. Two sessile polyps were found in the sigmoid colon. The polyps were 2to 3 mm in size. These polyps were removed with a cold snare. Resectionand retrieval were complete. Single hemoclip placed to one of the polypectomy sites to prevent bleeding. Non-bleeding internal hemorrhoids were found. The hemorrhoids wereGrade I (internal hemorrhoids that do not prolapse). Impression: - Simple Endoscopic Score for Crohn's Disease: 0, mucosal inflammatory changes secondary to quiescent Crohn's disease. Biopsied. - Patent [id number]-mh-[id number] ileo-colonic anastomosis, characterized by healthy appearing mucosa.Biopsied. - One 3 mm polyp in the descending colon, removedwith a cold snare. Resected and retrieved. - Two 2 to 3 mm polyps in the sigmoid colon,removed with a cold snare. Resected and retrieved. Single hemoclip placed to one of the polypectomy sites. - Non-bleeding internal hemorrhoids. Recommendation: - Discharge patient to home (ambulatory). - Resume previous diet. - Continue present medications. - Await pathology results. - Repeat colonoscopy in 3 years for surveillance. - Recommend split suprep with next bowel prep. - Resume eliquis this Tuesday 02/13. - Return to my office. - Contact Information: During normal business hours - Please call theNurse Coordinator: [phone]. After hours, evening, nights, weekends and holidays- Please call the hospital mill operator head at and ask for the GI fellow bath solution maker. Attending Participation: I personally performed the entire procedure. Electronically signed by Montrell Kern MD Montrell Kern M.D. 02/11/2025 10:11:17 AM Number of Addenda: 0 Note Initiated On: 02/11/2025 9:16 AM us Montrell Kern MD ENDOSCOPY PROCEDURES Final Resul t * CT Lung Cancer Screening (10/13/2024 4:36 PM CONTROL AREA OPERATOR) Anatomical Region Laterality Modality Chest N/A Computed Tomogra phy 10/17/2024 8:06 AM CONTROL AREA OPERATOR Narrative 10/17/2024 8:07 AM CONTROL AREA OPERATOR EXAM DESCRIPTION: CT LUNG CANCER SCREENING [...] David Ortiz M.D. SN: SN Report ID: [id number] Reading Location: [place] [address] Procedure Note David Ortiz MD - 10/17/2024 [...] by David Ortiz M.D. SN: Report ID: [id number] Reading Location: [place] [address] Zia Hearn DO IMG CT PROCEDURES Final R esult from Last 3 Months or Most Recently Relevant to Health Maintenance [place] For more information, please contact: [phone] * Full Code (Latest Code Status on File) Date Activated Date Inactivated Comments 02/11/2025 8:23 AM 02/11/2025 2:57 PM * Full Code Date Activated Date Inactivated Comments 03/14/2023 9:25 AM 03/14/2023 4:21 PM Care Teams Psychiatric Cns Relationship Specialty Start Date End Date Kassandra Hooks NP PCP - General Nurse Practitioner 08/27/24 Lucho Peralta MD Referring Physician Otolaryngology 12/07/23
--- OUTSIDE RECORDS SUMMARY | 2025-07-21 17:06 | XMS_ITS ---
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 - We will have MRE from [facility] read by our radiologists. Assessment & Plan (02/06/2023 12:22 PM CDT): MRE on 12/08/22 showed cystic lesions of the pancreas measuring up to 6mm. The patient only had an image of the impression of this report, and we do not have access to the report or study itself. - Patient has given authorization to release MRE report from [facility]. We will also obtain the images and [...] her abdominal pain on recent MRE at [facility]. We will obtain this study and have [...] valve Surgeries: ileocolic resection in 2019 at [facility] - 6 inches of small [...] traverse the IC valve, prompting ileocolic resection ([facility]) - [address] Path incidentally [...] traverse the IC valve, prompting ileocolic resection ([facility]) - 6 inches resected. Path incidentally [...] traverse the IC valve, prompting ileocolic resection ([facility]) - 6 inches resected. Path incidentally [...] dose. Assessment & Plan (10/23/2022 11:27 AM TRAVEL GUIDE): Diagnosis in 2014. Humira since Mar, 2016. [...] by patient yet. -recent blood work from [facility] reviewed. Noted to have urinalysis, CBC, CMP, [...] continue. Assessment & Plan (09/25/2022 10:44 AM TRAVEL GUIDE): Diagnosis in 2014. Humira since Mar, 2016. [...] today -Talked to her GI group at [facility] Dr Torres on-call, suggested if pt is stable to d/c to be admitted to [facility] work her up further. Talking to [...] scheduled. iron sucrose (Venofer) Infusion* Plan Start Date:04/06/2025 Plan Provider:Elle Medel NP Linked Problems High [...]
--- OUTSIDE RECORDS SUMMARY | 2025-07-21 17:06 | XMS_ITS | Encounter Summary ---
Author Organization [facility] Healthcare Address [address] [place] [address] Care Team Providers Care Regulatory Compliance Director Name Role Phone Odilon Vyas MD Primary Care Provider [phone] Lucho Peralta MD Unavailable Xiomara Carlos MD Primary Care Provider [phone] Odilon Vyas MD Primary Care Provider +[phone] Unknown, Notinfile Primary Care Provider Unavail able Kassandra Hooks NP Primary Care Provider + Encounter Details Date Type Department Care Team (Late st Contact Info) Description 01/21/2024 Telephone [facility] at [facility] [address] [address], [address] [place] [address] Massimo Glynn MD [address] [address] Social History Tobacco Use Types Packs/Day Years [...] on file 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 Gender Identity Female 06/12/2023 3:27 PM [...] on filedocumented in this encounter Care Teams Regulatory Compliance Director Relationship Specialty Start Date End Date Odilon Vyas MD [address] [place] [address] PCP - General Family Medicine 02/08/23 02/07/24 Xiomara Carlos MD [address] [place] [address] PCP - General Psychiatry 02/08/24 03/23/24 Odilon Vyas MD [address] [place] [address] PCP - General Family Medicine 03/24/24 08/12/24 Unknown, Notinfile PCP - General 08/13/24 08/26/24 Kassandra Hooks NP PCP - General Nurse Practitioner 08/27/24 Lucho Peralta MD [address] [place] [address] Referring Physician Otolaryngology 12/07/23 documented as of this encounter
--- OUTSIDE RECORDS SUMMARY | 2025-07-21 17:06 | XMS_ITS | Encounter Summary ---
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 Gender Identity Female 06/12/2023 3:27 PM CDT [...] on filedocumented in this encounter Care Teams Ice Cream Dipper Relationship Specialty Start Date End Date Jesus Gonzalez DO [address] [place] [address] PCP - General Family Medicine 10/26/21 02/07/23 Odilon Vyas MD [address] [place] [address] PCP - General Family Medicine 02/08/23 02/07/24 Xiomara Carlos MD [address] [place] [address] PCP - General Psychiatry 02/08/24 03/23/24 Odilon Vyas MD [address] [place] [address] PCP - General Family Medicine 03/24/24 08/12/24 Unknown, Notinfile PCP - General 08/13/24 08/26/24 Kassandra Hooks, EDWIGE PCP - General Nurse Practitioner 08/27/24 Lucho Peralta MD [address] [place] [address] Referring Physician Otolaryngology 12/07/23 documented as of this encounter
--- OUTSIDE RECORDS SUMMARY | 2025-07-21 17:06 | XMS_ITS | Encounter Summary ---
Author Organization [facility] Address [address] [place] [address] Phone Care Team Providers Care Chief Technician X Ray Name Role Phone Jesus Gonzalez DO Primary Care Provider Odilon Vyas MD Primary Care Provider + [phone] Lucho Peralta MD Unavailable Xiomara Carlos MD Primary Care Provider [phone] Odilon Vyas MD Primary Care Provider + [phone] Unknown, Notinfile Primary Care Provider Unavail able Kassandra Hooks NP Primary Care Provider + Encounter Details Date Type Department Care Team (Latest Contact Info) Description 08/16/2015 Orders Only [facility] CARDIOLOGY Chasity Borjas, CARMINA [address] 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 Gender Identity Female 06/12/2023 3:27 PM CDT [...] on filedocumented in this encounter Care Teams Chief Technician X Ray Relationship Specialty Start Date End Date Jesus Gonzalez DO [address] [place] [address] PCP - General Family Medicine 10/26/21 02/07/23 Odilon Vyas MD [address] [place] [address] PCP - General Family Medicine 02/08/23 02/07/24 Xiomara Carlos MD [address] [place] [address] PCP - General Psychiatry 02/08/24 03/23/24 Odilon Vyas MD [address] [place] [address] PCP - General Family Medicine 03/24/24 08/12/24 Unknown, Notinfile PCP - General 08/13/24 08/26/24 Kassandra Hooks NP PCP - General Nurse Practitioner 08/27/24 Lucho Peralta MD [address] [place] [address] Referring Physician Otolaryngology 12/07/23 documented as of this encounter
--- OUTSIDE RECORDS SUMMARY | 2025-07-21 17:06 | XMS_ITS | Encounter Summary ---
Author Organization [facility] Address [address] [place] [address] Phone Care Team Providers Care Sales And Marketing Manager Name Role Phone Jesus Gonzalez DO Primary Care Provider Odilon Vays MD Primary Care Provider + [phone] Lucho Peralta MD Unavailable Xiomara Carlos MD Primary Care Provider [phone] Odilon Vyas MD Primary Care Provider + [phone] Unknown, Notinfile Primary Care Provider Unavail able Kassandra Hooks NP Primary Care Provider + Encounter Details Date Type Department Care Team (Latest Contact Info) Description 08/24/2015 Orders Only [facility] CARDIOLOGY Chasity Borjas, CARMINA [address] [facility] [address] [place], [place] [id number] Social History Tobacco Use Types Packs/Day Years Used Date Smoking Tobacco: Never Assessed Comments Unknown Sex and Gender Information Value Date Recorded Sex Assigned at Not on file 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 Gender Identity Female 06/12/2023 3:27 PM CDT [...] on filedocumented in this encounter Care Teams Sales And Marketing Manager Relationship Specialty Start Date End Date Jesus Gonzalez DO [address] [place] [address] PCP - General Family Medicine 10/26/21 02/07/23 Odilon Vyas MD [address] [place] [address] PCP - General Family Medicine 02/08/23 02/07/24 Xiomara Carlos MD [address] [place] [address] PCP - General Psychiatry 02/08/24 03/23/24 Odilon Vyas MD [address] [place] [address] PCP - General Family Medicine 03/24/24 08/12/24 Unknown, Notinfile PCP - General 08/13/24 08/26/24 Kassandra Hooks NP PCP - General Nurse Practitioner 08/27/24 Lucho Peralta MD [address] [place] [address] Referring Physician Otolaryngology 12/07/23 documented as of this encounter
[2025-07-21 17:08] VITALS: BP 120/66; PULSE 66; RESP 16; TEMP 36.9; O2SAT 98
--- NOTE | 2025-07-21 17:09 | ED.GENADULT ---
HPI - General Adult General Chief complaint: Recheck/Abnormal Lab/Rx Stated complaint: left calf pain, Time Seen by Provider: 07/21/25 17:09 Focused HPI: Patient is a 54 y/o female who presents to the ED with c/o L calf pain. Patient reports having some aching throughout her L calf yesterday. States the pain was worse this morning and woke her from her sleep. Prompted here for further eval. Hx of previous CVA, multiple blood clots. Patient is on Eliquis 5mg bid. Has not missed any doses. Denies any injury, CP, SOB. GENERAL: Well-appearing, well-nourished, and in no acute distress. HEAD: Normocephalic, atraumatic. CHEST: Clear to auscultation. ?No respiratory distress. HEART: Regular rate and rhythm.? MSK: No appreciable swelling throughout LLE. Mild TTP in L posterior calf. NEURO: ?Alert and oriented x3. Patient screened in triage and initial orders placed.? ?Additional care and disposition to be based upon?diagnostic testing and treatment. Source: patient Mode of arrival: ambulatory Limitations: no limitations Related Data Home Medications ?Medication ?Instructions ?Recorded ?Confirmed ?Last Taken ?Type sucralfate 1 gram tablet 1 g PO TID PRN Acid Reflux 08/02/21 04/23/25 04/14/24 History ascorbic acid (vitamin C) 1,000 mg 1 g PO DAILY 05/12/22 04/23/25 09/12/24 History tablet (Vitamin C) aspirin 81 mg tablet,delayed 81 mg PO DAILY 05/12/22 04/23/25 09/12/24 History release turmeric 100 mg-benjy 150 1 cap PO DAILY 05/12/22 04/23/25 09/12/24 History mg-olive 50 mg-oreg 150 mg-capryl capsule hydrocortisone acetate 25 mg 25 mg RECTAL DAILY PRN CROHN'S EXAC 07/19/23 04/23/25 04/14/24 History rectal suppository mercaptopurine 50 mg tablet 50 mg PO DAILY 07/19/23 04/23/25 09/12/24 History sumatriptan succinate 50 mg tablet 50 mg PO ONCE PRN MIGRAINES 07/19/23 04/23/25 04/14/24 History (Imitrex) tizanidine 2 mg capsule 2 mg PO TID 07/25/23 04/23/25 09/12/24 History Allergies Allergy/AdvReac Type Severity Reaction Status Date / Time metronidazole (From Flagyl) Allergy Severe GI bleeding Verified 07/24/25 16:52 Sulfa (Sulfonamide Allergy Severe GI Bleeding Verified 07/24/25 16:52 Antibiotics) sulfamethoxazole (From Allergy Unknown Verified 07/24/25 16:52 Bactrim) trimethoprim (From Bactrim) Allergy Unknown Verified 07/24/25 16:52 hydrocodone (From Vicodin) AdvReac Severe Vomiting Verified 07/24/25 16:52 adhesive tape AdvReac Blister Verified 07/24/25 16:52 PMFSH Past Medical History Medical History Lumbar spondylosis Fatigue Iron deficiency anemia Diabetes Factor V Leiden Osteomyelitis History of TIA (transient ischemic attack) Restless leg syndrome Insomnia Portal hypertension Atrial fibrillation 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 01/16/25 patient declined SDOH Smoking packs per day: 2 Smoking cigarettes per day: 40.0 Years smoked: 20 Smoking pack-years: 40.00 Smoking status: Former smoker Tobacco type: cigarettes Smoking end date: 10/23/15 Additional smoking assessment comments: Quit 2015. 35pk yr history Alcohol intake: former Substance use: former Substance use type: marijuana Other substance usage details: Marijuana tea daily Last use: 09/11 Do You Feel Safe in your Home?: Yes Lack of Transportation: YES Lack of Food: Often True Current Housing: I Have Housing Concerned About Future Housing: YES Difficulty Paying Gas/Electric Bills: YES Difficulty Paying for Meds: YES Currently Unemployed: YES Education: Bachelor's Degree Difficulty w/ Childcare or Family Care: No Living arrangements: with family Occupation/Education: retired Spiritual care concerns: No Course Vital Signs Vital signs: Vital Signs Temperature 98.5 F 07/21/25 17:08 Pulse Rate 66 07/21/25 17:08 Respiratory Rate 16 07/21/25 17:08 Blood Pressure 120/66 07/21/25 17:08 Pulse Oximetry 98 07/21/25 17:08 Temperature 98.5 F 07/21/25 17:08 Pulse Rate 66 07/21/25 17:08 Respiratory Rate 16 07/21/25 17:08 Blood Pressure 120/66 07/21/25 17:08 Pulse Oximetry 98 07/21/25 17:08 Medical Decision Making MDM Narrative Medical decision making narrative: MSE by YANN in triage. Vital Signs Vital Signs: Vital Signs Temperature 98.5 F 07/21/25 17:08 Pulse Rate 66 07/21/25 17:08 Respiratory Rate 16 07/21/25 17:08 Blood Pressure 120/66 07/21/25 17:08 Pulse Oximetry 98 07/21/25 17:08 Temperature 98.5 F 07/21/25 17:08 Pulse Rate 66 07/21/25 17:08 Respiratory Rate 16 07/21/25 17:08 Blood Pressure 120/66 07/21/25 17:08 Pulse Oximetry 98 07/21/25 17:08 Discharge Plan Discharge Clinical Impression: Deep vein thrombosis, Factor V Leiden mutation Patient Disposition: Home Condition: Stable Patient Language: Mozambican Prescriptions: No Action ondansetron 4 mg tablet,disintegrating 4 mg PO Q4H 0 Days Qty: 10 0RF Rx Instructions: 1st dose 1-2 hr before radiation amoxicillin 500 mg tablet 1,000 mg PO Q12H 7 Days Qty: 28 0RF meclizine 25 mg tablet 25 mg PO TID PRN (Reason: dizziness) Qty: 20 0RF tizanidine 2 mg capsule 2 mg PO TID mupirocin [Centany] 2 % ointment 1 applic topical QID Qty: 44 3RF Rx Instructions: Melt 2 in in each irrigation bottle irrigate 4 times per day sucralfate 1 gram tablet 1 g PO TID PRN (Reason: Acid Reflux) ascorbic acid (vitamin C) [Vitamin C] 1,000 mg Tablet 1 g PO DAILY aspirin 81 mg Tablet,Delayed Release (Dr/Ec) 81 mg PO DAILY othylzjt-kmcs-yzoyp-oreg-capry 100 mg-150 mg- 50 mg-150 mg Capsule 1 cap PO DAILY mercaptopurine 50 mg tablet 50 mg PO DAILY sumatriptan succinate [Imitrex] 50 mg Tablet 50 mg PO ONCE PRN (Reason: MIGRAINES) hydrocortisone acetate 25 mg suppository 25 mg RECTAL DAILY PRN (Reason: CROHN'S EXAC) Saccharomyces boulardii [Florastor] 250 mg Capsule 250 mg PO TID Qty: 30 0RF linezolid 600 mg Tablet 600 mg PO Q12HR Qty: 18 0RF Humira Pen 40 mg/0.8 mL pen injector kit See Rx Instructions subcut .Every other Week Qty: 2 10RF Rx Instructions: inject one - 40 mg/0.8 mL pen every other week subcut . pantoprazole 40 mg tablet,delayed release (DR/EC) 40 mg PO QAM Qty: 90 0RF cholecalciferol (vitamin D3) 1,250 mcg (50,000 unit) capsule See Rx Instructions .ROUTE .COMPLEX Qty: 12 5RF Dose Instruction: TAKE ONE CAPSULE BY MOUTH WEEKLY ON SUNDAY Rx Instructions: TAKE ONE CAPSULE BY MOUTH WEEKLY ON SUNDAY albuterol sulfate 2.5 mg /3 mL (0.083 %) solution for nebulization 2.5 mg inhalation Q4-6H PRN (Reason: shortness of breath or wheezing) Qty: 90 0RF albuterol sulfate 90 mcg/actuation HFA aerosol inhaler 2 inh inhalation Q4H PRN (Reason: shortness of breath or wheezing) Qty: 6.7 3RF paroxetine HCl [Paxil] 40 mg tablet 40 mg PO HS Qty: 90 1RF ropinirole 1 mg tablet 1 mg PO DAILY Qty: 30 3RF eszopiclone 3 mg tablet 3 mg PO QHS Qty: 90 0RF oxycodone-acetaminophen 10-325 mg tablet 1 tablet PO Q8H PRN (Reason: pain) Qty: 90 0RF alprazolam 0.5 mg tablet 0.5 mg PO BID Qty: 60 0RF Eliquis 5 mg tablet 5 mg PO BID Qty: 60 3RF Follow-up/Referrals: Kassandra Hooks APRN [Primary Care Provider, Family Practice]
--- NOTE | 2025-07-21 19:54 | PC.NURSE ---
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 Pt ambulatory to parking lot, axox4, with steady gain in nad at this time.
== END 2025-07-21 19:54 | disposition home or self-care (01) ==
LOC: ANHED 20:33
PROVIDERS: Emergency Provider Physician Assistant; PCP Nurse Practitioner Family
DX: I82.432 Acute embolism and thrombosis of left popliteal vein (principal); I82.462 Acute embolism and thrombosis of left calf muscular vein; D68.51 Activated protein C resistance; I48.91 Unspecified atrial fibrillation; E11.9 Type 2 diabetes mellitus without complications; D50.9 Iron deficiency anemia, unspecified; G25.81 Restless legs syndrome; K50.90 Crohn's disease, unspecified, without complications; Z86.73 Personal history of transient ischemic attack (TIA), and cerebral infarction without residual deficits; Z87.891 Personal history of nicotine dependence; Z89.421 Acquired absence of other right toe(s); Z90.49 Acquired absence of other specified parts of digestive tract; Z89.029 Acquired absence of unspecified finger(s); Z79.82 Long term (current) use of aspirin; Z79.899 Other long term (current) drug therapy; Z79.01 Long term (current) use of anticoagulants; Z79.620 Long term (current) use of immunosuppressive biologic
CPT/HCPCS: 93971; 99284

== ENCOUNTER 2025-07-21 20:30 | Emergency (ER) | payer BC, SELFPAY ==
--- OUTSIDE RECORDS SUMMARY | 2016-01-18 10:45 | XMS_ITS | Continuity of Care Document ---
Author Organization [employer] Address [address] [place] [address] Phone Care Team Providers Care Laborer Operator Name Role Phone Lorrie HUYNH, Meeta Unavailable Unavailable Advance Directives Directive Yes / No Effective Date File Name No Information Encounters Encounter Description Practice Location Reason(s) For Visit Diagnoses Date Provider Providers Copied on Encounter [employer], [facility], [address], [place] tel:[phone] [facility] No Information Lorrie Tim. [address] [place], [place], [address], [place]. tel:[phone] Family History Family Member Type Diagnosis Age At Onset Mother Problem (finding) malignant neoplasm of l kaitlyner Father Problem (finding) hypertension Payers Payer name Insurance type Covered democrat ID Authoriza tion(s) [facility] Ppo/EPO BL [id number] Social History Type Description Quantity Date Captured [...]
--- OUTSIDE RECORDS SUMMARY | 2025-07-21 20:32 | XMS_ITS | Clinical Summary ---
Author Organization [facility] Address [address] [place] [address] Care Team Providers Care Recreation Program Specialist Name Role Phone Lucho Peralta MD Unavailable Kassandra Hooks NP Primary Care Provider + Allergies Active Allergy Reactions Criticality Noted Date Comments Amoxicillin-Pot Clavulanate Other (See comments) Low 02/06/2023 Makes Crohn's flare up Sulfamethoxazole-Trime thoprim Other (See comments) Low 02/06/2023 Makes Crohn's flare up Hydrocodone-Acetaminop hen Nausea And Vomiting Medium 05/29/2016 Ryegate Latex Itching High 08/10/2016 Silver Blisters,Other (See comments) High 07/19/2023 Tegaderm dressing- used with PICC line (terminal worker is when she had reaction) Sulfa Other [...] 1 tablet (1,000 mcg total) by mouth golf range attendant before breakfast No particular days Active [...] Humira Pen 40 mg/0.8 mL pen injector kitIndications:Residential Housekeeper hn's Disease Inject 0.8 mL (40 mg [...] 11/13/2023 Assessment & Plan (11/13/2023 4:00 PM BUSSER): PO2W cataract extraction (CE)/posterior chamber intraocular lens [...] (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 - We will have MRE from [facility] read by our radiologists. Assessment & Plan (02/06/2023 12:22 PM CDT): MRE on 12/08/22 showed cystic lesions of the pancreas measuring up to 6mm. The patient only had an image of the impression of this report, and we do not have access to the report or study itself. - Patient has given authorization to release MRE report from [facility]. We will also obtain the images [...] her abdominal pain on recent MRE at [facility]. We will obtain this study and [...] valve Surgeries: ileocolic resection in 2019 at [facility] - 6 inches of small [...] traverse the IC valve, prompting ileocolic resection ([facility]) - 6 inches resected. Path [...] traverse the IC valve, prompting ileocolic resection ([facility]) - 6 inches resected. Path [...] traverse the IC valve, prompting ileocolic resection ([facility]) - 6 inches resected. Path [...] dose. Assessment & Plan (10/23/2022 11:27 AM BUSSER): Diagnosis in 2014. Humira since Mar, 2016. [...] by patient yet. -recent blood work from [facility] reviewed. Noted to have urinalysis, CBC, [...] continue. Assessment & Plan (09/25/2022 10:44 AM BUSSER): Diagnosis in 2014. Humira since Mar, 2016. [...] today -Talked to her GI group at [facility] Dr Torres on-call, suggested if pt is stable to d/c to be admitted to [facility] work her up further. Talking to [...] Type Department Care Team Description 07/10/2025 Telephone [facility] at the [address] [place] [address] Melvin Oneill DO Scheduling Appointments 07/08/[address] [facility] Gastroenterology [address] [place] [address] [place] [address] [place] [address] Koki Garcia LPN Switch from Linzess to Trulance 06/30/2025 9:30 AM CDT Office Visit [facility] Dermatology [address] [facility] [address] [place] [address] Caty Butterfield MD PhD Prurigo nodularis (Primary Dx); Scar; History of Crohn's disease 06/29/2025 Documentation [facility] Gastroenterology [address] [facility] [address] [place] [address] Montrell Kern MD 06/26/2025 Telephone [facility] Gastroenterology [address] [place] [address] [place] [address] Daiana Rodríguez RMA 06/25/2025 4:00 PM CDT Office Visit [facility] Gastroenterology [address] [place] [address] [place] [address] [place] [address] Corazon Becerra NP Crohn's disease of both small and large intestine with other complication (Primary Dx); High risk medications (not anticoagulants) long-term use; Factor V deficiency (HCC); Malignant neoplasm of appendix (HCC); Chiari malformation type I (HCC) 06/23/2025 Telephone [facility] Gastroenterology [address] [place] [address] [place] [address] [place] [address] Daiana Rodríguez RMA rash 05/19/[address] [facility] Gastroenterology [address] [facility] [address] [place] [address] [place] [address] Daiana Rodríguez RMA 05/14/2025 4:00 PM CDT Office Visit [facility] ([facility]) - 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 Gender Identity Female 06/12/2023 3:27 PM CDT [...] as needed Medical Devices Implanted Type Area Anode Crew Supervisor Device Identifier Shelf Expiration Date Model / Serial / Lot [employer] Lens Iol Cna0t0.230 [employer] Uva Autonom Cna0t0.230 - [id number] - [id number] Implanted:Qty: 1 on 10/29/2023 by Melvin San MD at [facility] Left: Eye [employer] [id number] 06/25/2026 CNA0T0.23 0 / [id number] / Procedures Procedure Name Priority Date/Time Associated Diagnosis Comments COLONOSCOPY 02/11/2025 9:[address] LUNG CANCER SCREENING Schedule Routine, Read Routine (OP Routine) 10/13/2024 4:36 PM BUSSER Nicotine dependence, cigarettes, in remission from Last [...] Female Attending MD: Montrell Kern M.D. Room: [facility] ENDOSCOPY ROOM 05 Note Status: Finalized [...] The scope was passed under direct vision.The [id number] was introduced through the anusand advanced to [...] histology. There was evidence of a prior qdxf-ye-pmts ileo-colonic anastomosisin the ascending colon. This was [...] to quiescent Crohn's disease. Biopsied. - Patent nufv-ir-saei ileo-colonic anastomosis, characterized by healthy appearing mucosa.Biopsied. [...] business hours - Please call theNurse Coordinator: [phone]. After hours, evening, nights, weekends and holidays- Please call the hospital benzene still utility operator at and ask for the GI fellow director of health education. Attending Participation: I personally performed the entire procedure. Electronically signed by Montrell Kern MD Montrell Kern M.D. 02/11/2025 10:11:17 AM Number of Addenda: 0 Note Initiated On: 02/11/2025 9:16 AM us Montrell Kern MD ENDOSCOPY PROCEDURES Final Resul t * CT Lung Cancer Screening (10/13/2024 4:36 PM BUSSER) Anatomical Region Laterality Modality Chest N/A Computed Tomogra phy 10/17/2024 8:06 AM BUSSER Narrative 10/17/2024 8:07 AM BUSSER EXAM DESCRIPTION: CT LUNG CANCER SCREENING REASON [...] David Ortiz M.D. SN: SN Report ID: [id number] Reading Location: [place] [address] Procedure Note David Ortiz MD - 10/17/2024 [...] by David Ortiz M.D. SN: Report ID: [id number] Reading Location: [place] [address] Zia Hearn DO IMG CT PROCEDURES Final R esult from Last 3 Months or Most Recently Relevant to Health Maintenance [place] For more information, please contact: [phone] * Full Code (Latest Code Status on File) Date Activated Date Inactivated Comments 02/11/2025 8:23 AM 02/11/2025 2:57 PM * Full Code Date Activated Date Inactivated Comments 03/14/2023 9:25 AM 03/14/2023 4:21 PM Care Teams Recreation Program Specialist Relationship Specialty Start Date End Date Kassandra Hooks NP PCP - General Nurse Practitioner 08/27/24 Lucho Peralta MD Referring Physician Otolaryngology 12/07/23
--- OUTSIDE RECORDS SUMMARY | 2025-07-21 20:32 | XMS_ITS | Encounter Summary ---
Author Organization [facility] Address [address] [place] [address] Phone Care Team Providers Care Section Chief Name Role Phone Jesus Gonzalez DO Primary Care Provider Odilon Vyas MD Primary Care Provider + [phone] Lucho Peralta MD Unavailable Xiomara Carlos MD Primary Care Provider [phone] Odilon Vyas MD Primary Care Provider + [phone] Unknown, Notinfile Primary Care Provider Unavail able Kassandra Hooks NP Primary Care Provider + Encounter Details Date Type Department Care Team (Latest Contact Info) Description 08/24/2015 Orders Only [facility] CARDIOLOGY Chasity Borjas, CARMINA [address] [facility] [address] [place], [place] [id number] Social History Tobacco Use Types Packs/Day Years Used Date Smoking Tobacco: Never Assessed Comments Unknown Sex and Gender Information Value Date Recorded Sex Assigned at Not on file 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 Gender Identity Female 06/12/2023 3:27 PM CDT [...] on filedocumented in this encounter Care Teams Section Chief Relationship Specialty Start Date End Date Jesus Gonzalez DO [address] [place] [address] PCP - General Family Medicine 10/26/21 02/07/23 Odilon Vyas MD [address] [place] [address] PCP - General Family Medicine 02/08/23 02/07/24 Xiomara Carlos MD [address] [place] [address] PCP - General Psychiatry 02/08/24 03/23/24 Odilon Vyas MD [address] [place] [address] PCP - General Family Medicine 03/24/24 08/12/24 Unknown, Notinfile PCP - General 08/13/24 08/26/24 Kassandra Hooks NP PCP - General Nurse Practitioner 08/27/24 Lucho Peralta MD [address] [place] [address] Referring Physician Otolaryngology 12/07/23 documented as of this encounter
--- OUTSIDE RECORDS SUMMARY | 2025-07-21 20:32 | XMS_ITS | Patient Health Record ---
Author Organization Fabian Noe MD Address [address] [address] Care Team Providers Care Financial Controller Name Role Phone Fabian Noe Unavailable [phone] Reason For Referral No Information Medications Medication SIG (Take, Route, Frequency, Duration) Notes Start Date End Date Status NexIUM 40 MG 1 cap(s) orally once a day Active Triamcinolone Acetonide 0.1 % 1 nelson applied topically 3 times a day; Duration: 30 days 10/20/2014 Active Social History Tobacco [...] Insured Coverage Start Date Coverage End Date [facility] [address] [address] [place] [address] [id number] Danette Thomas Self - patient is the insured 4 Medical (General) History Medical History History ICD Code Rash Tendinitis NOS Ulcer of skin NOS
--- OUTSIDE RECORDS SUMMARY | 2025-07-21 20:32 | XMS_ITS | Clinical Summary ---
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
--- OUTSIDE RECORDS SUMMARY | 2025-07-21 20:32 | XMS_ITS ---
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 - We will have MRE from [facility] read by our radiologists. Assessment & Plan (02/06/2023 12:22 PM CDT): MRE on 12/08/22 showed cystic lesions of the pancreas measuring up to 6mm. The patient only had an image of the impression of this report, and we do not have access to the report or study itself. - Patient has given authorization to release MRE report from [facility]. We will also obtain the images and [...] her abdominal pain on recent MRE at [facility]. We will obtain this study and have [...] valve Surgeries: ileocolic resection in 2019 at [facility] - 6 inches of small bowel [...] traverse the IC valve, prompting ileocolic resection ([facility]) - 6 [address] resected. Path incidentally [...] traverse the IC valve, prompting ileocolic resection ([facility]) - 6 inches resected. Path incidentally [...] traverse the IC valve, prompting ileocolic resection ([facility]) - 6 inches resected. Path incidentally [...] dose. Assessment & Plan (10/23/2022 11:27 AM OTOLOGIST): Diagnosis in 2014. Humira since Mar, 2016. [...] by patient yet. -recent blood work from [facility] reviewed. Noted to have urinalysis, CBC, [...] continue. Assessment & Plan (09/25/2022 10:44 AM OTOLOGIST): Diagnosis in 2014. Humira since Mar, 2016. [...] today -Talked to her GI group at [facility] Dr Torres on-call, suggested if pt is stable to d/c to be admitted to [facility] work her up further. Talking to [...]
--- OUTSIDE RECORDS SUMMARY | 2025-07-21 20:32 | XMS_ITS | Encounter Summary ---
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 Gender Identity Female 06/12/2023 3:27 PM [...] on filedocumented in this encounter Care Teams Dryer And Washer Mechanic Relationship Specialty Start Date End Date Jesus Gonzalez DO [address] [place] [address] PCP - General Family Medicine 10/26/21 02/07/23 Odilon Vyas MD [address] [place] [address] PCP - General Family Medicine 02/08/23 02/07/24 Xiomara Carlos MD [address] [place] [address] PCP - General Psychiatry 02/08/24 03/23/24 Odilon Vyas MD [address] [place] [address] PCP - General Family Medicine 03/24/24 08/12/24 Unknown, Notinfile PCP - General 08/13/24 08/26/24 Kassandra Hooks, EDWIGE PCP - General Nurse Practitioner 08/27/24 Lucho Peralta MD [address] [place] [address] Referring Physician Otolaryngology 12/07/23 documented as of this encounter
--- OUTSIDE RECORDS SUMMARY | 2025-07-21 20:32 | XMS_ITS | Encounter Summary ---
Author Organization [facility] Address [address] [place] [address] Phone Care Team Providers Care Copyright Manager Name Role Phone Jesus Gonzalez DO Primary Care Provider Odilon Vyas MD Primary Care Provider + [phone] Lucho Peralta MD Unavailable Xiomara Carlos MD Primary Care Provider [phone] Odilon Vysa MD Primary Care Provider + [phone] Unknown, Notinfile Primary Care Provider Unavail able Kassandra Hooks NP Primary Care Provider + Encounter Details Date Type Department Care Team (Latest Contact Info) Description 05/10/2015 Orders Only 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 Gender Identity Female 06/12/2023 3:27 PM CDT [...] on filedocumented in this encounter Care Teams Copyright Manager Relationship Specialty Start Date End Date Jesus Gonzalez DO [address] [place] [address] PCP - General Family Medicine 10/26/21 02/07/23 Odilon Vyas MD [address] [place] [address] PCP - General Family Medicine 02/08/23 02/07/24 Xiomara Carlos MD [address] [place] [address] PCP - General Psychiatry 02/08/24 03/23/24 Odilon Vyas MD [address] [place] [address] PCP - General Family Medicine 03/24/24 08/12/24 Unknown, Notinfile PCP - General 08/13/24 08/26/24 Kassandra Hooks NP PCP - General Nurse Practitioner 08/27/24 Lucho Peralta MD [address] [place] [address] Referring Physician Otolaryngology 12/07/23 documented as of this encounter
--- OUTSIDE RECORDS SUMMARY | 2025-07-21 20:32 | XMS_ITS | Encounter Summary ---
Author Organization [facility] Address [address] [place] [address] Phone Care Team Providers Care Marketing Assistant Name Role Phone Jesus Gonzalez DO Primary Care Provider Odilon Vyas MD Primary Care Provider + [phone] Lucho Peralta MD Unavailable Xiomara Carlos MD Primary Care Provider [phone] Odilon Vyas MD Primary Care Provider + [phone] Unknown, Notinfile Primary Care Provider Unavail able Kassandra Hooks NP Primary Care Provider + Encounter Details Date Type Department Care Team (Latest Contact Info) Description 08/21/2015 Orders Only [facility] CARDIOLOGY Chasity Borjas, CARMINA [address] [facility] [address] [place], [place] [id number] Social History Tobacco Use Types Packs/Day Years Used Date Smoking Tobacco: Never Assessed Comments Unknown Sex and Gender Information Value Date Recorded Sex Assigned at Not on file Legal Sex Female 10:13 AM SPA CONCIERGE Gender Identity Female 06/12/2023 3:27 PM CDT [...] on filedocumented in this encounter Care Teams Marketing Assistant Relationship Specialty Start Date End Date Jesus Gonzalez DO [address] [place] [address] PCP - General Family Medicine 10/26/21 02/07/23 Odilon Vyas MD [address] [place] [address] PCP - General Family Medicine 02/08/23 02/07/24 Xiomara Carlos MD [address] [place] [address] PCP - General Psychiatry 02/08/24 03/23/24 Odilon Vyas MD [address] [place] [address] PCP - General Family Medicine 03/24/24 08/12/24 Unknown, Notinfile PCP - General 08/13/24 08/26/24 Kassandra Hooks NP PCP - General Nurse Practitioner 08/27/24 Lucho Peralta MD [address] [place] [address] Referring Physician Otolaryngology 12/07/23 documented as of this encounter
--- OUTSIDE RECORDS SUMMARY | 2025-07-21 20:32 | XMS_ITS | Encounter Summary ---
Author Organization [facility] Address [address] [place] [address] Care Team Providers Care Pipelayer Name Role Phone Odilon Vyas MD Primary Care Provider [phone] Lucho Peralta MD Unavailable Xiomara Carlos MD Primary Care Provider [phone] Odilon Vyas MD Primary Care Provider [phone] Unknown, Notinfile Primary Care Provider Unavail able Kassandra Hooks NP Primary Care Provider + Encounter Details Date Type Department Care Team (Late st Contact Info) Description 01/21/2024 Telephone [facility] at [facility] [address] [address], [address] [place] [address] Massimo Glynn MD [address] [address] Social History Tobacco Use Types Packs/Day Years [...] on file Legal Sex Female 10:13 AM GRAPHICS INTERN Gender Identity Female 06/12/2023 3:27 PM CDT [...] on filedocumented in this encounter Care Teams Pipelayer Relationship Specialty Start Date End Date Odilon Vyas MD [address] [place] [address] PCP - General Family Medicine 02/08/23 02/07/24 Xiomara Carlos MD [address] [place] [address] PCP - General Psychiatry 02/08/24 03/23/24 Odilon Vyas MD [address] [place] [address] PCP - General Family Medicine 03/24/24 08/12/24 Unknown, Notinfile PCP - General 08/13/24 08/26/24 Kassandra Hooks NP PCP - General Nurse Practitioner 08/27/24 Lucho Peralta MD [address] [place] [address] Referring Physician Otolaryngology 12/07/23 documented as of this encounter
--- OUTSIDE RECORDS SUMMARY | 2025-07-21 20:32 | XMS_ITS | Encounter Summary ---
Author Organization [facility] Address [address] [place] [address] Care Team Providers Care Hack Driver Name Role Phone Odilon Vyas MD Primary Care Provider [phone] Lucho Peralta MD Unavailable Xiomara Carlos MD Primary Care Provider [phone] Odilon Vyas MD Primary Care Provider [phone] Unknown, Notinfile Primary Care Provider Unavail able Kassandra Hooks NP Primary Care Provider + Encounter Details Date Type Department Care Team (Late st Contact Info) Description 01/18/2024 Telephone [facility] at [facility] [address] [address], [address] [place] [address] Massimo Glynn MD [address] [address] Social History Tobacco Use Types Packs/Day Years [...] on file Legal Sex Female 10:13 AM POMOLOGIST Gender Identity Female 06/12/2023 3:27 PM CDT [...] on filedocumented in this encounter Care Teams Hack Driver Relationship Specialty Start Date End Date Odilon Vyas MD [address] [place] [address] PCP - General Family Medicine 02/08/23 02/07/24 Xiomara Carlos MD [address] [place] [address] PCP - General Psychiatry 02/08/24 03/23/24 Odilon Vyas MD [address] [place] [address] PCP - General Family Medicine 03/24/24 08/12/24 Unknown, Notinfile PCP - General 08/13/24 08/26/24 Kassandra Hooks NP PCP - General Nurse Practitioner 08/27/24 Lucho Peralta MD [address] [place] [address] Referring Physician Otolaryngology 12/07/23 documented as of this encounter
--- NOTE | 2025-07-21 20:33 | ED.GENADULT ---
HPI - General Adult General Chief complaint: Extremity Problem,Nontraumatic Stated complaint: Left Calf Pain Time Seen by Provider: 07/21/25 20:33 Source: patient Mode of arrival: ambulatory Limitations: no limitations History of Present Illness HPI narrative: PATIENT CAME TO THE ED COMPLAINING OF PAIN AT THE LEFT CALF MUSCLE FOR THE LAST 3 DAYS. 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 PATIENT REPORTS THAT SHE DIAGNOSED HERSELF WITH BLOOD CLOT AT THE LEFT LOWER LEG 5 MONTHS AGO, NO OFFICIAL DIAGNOSIS. PATIENT CURRENTLY ON ELIQUIS 5 MG TWICE A DAY FOR AFIB. PATIENT DENIES ANY CHEST PAIN OR SHORTNESS OF BREATH OR FEVER OR CHILLS OR BACK PAIN. PATIENT HAD VENOUS DOPPLER OF THE LEFT LOWER EXTREMITY TODAY EARLY AT [facility] WHICH SHOWED DEEP VEIN THROMBOSIS LEFT POPLITEAL AND GASTROCNEMIUS VEIN. Related Data Home Medications ?Medication ?Instructions ?Recorded ?Confirmed ?Last Taken ?Type sucralfate 1 gram tablet 1 g PO TID PRN Acid Reflux 08/02/21 04/23/25 04/14/24 History ascorbic acid (vitamin C) 1,000 mg 1 g PO DAILY 05/12/22 04/23/25 09/12/24 History tablet (Vitamin C) aspirin 81 mg tablet,delayed 81 mg PO DAILY 05/12/22 04/23/25 09/12/24 History release turmeric 100 mg-benjy 150 1 cap PO DAILY 05/12/22 04/23/25 09/12/24 History mg-olive 50 mg-oreg 150 mg-capryl capsule hydrocortisone acetate 25 mg 25 mg RECTAL DAILY PRN CROHN'S EXAC 07/19/23 04/23/25 04/14/24 History rectal suppository mercaptopurine 50 mg tablet 50 mg PO DAILY 07/19/23 04/23/25 09/12/24 History sumatriptan succinate 50 mg tablet 50 mg PO ONCE PRN MIGRAINES 07/19/23 04/23/25 04/14/24 History (Imitrex) tizanidine 2 mg capsule 2 mg PO TID 07/25/23 04/23/25 09/12/24 History Allergies Allergy/AdvReac Type Severity Reaction Status Date / Time metronidazole (From Flagyl) Allergy Severe GI bleeding Verified 05/12/25 18:07 Sulfa (Sulfonamide Allergy Severe GI Bleeding Verified 05/12/25 18:07 Antibiotics) sulfamethoxazole (From Allergy Unknown Verified 05/12/25 18:07 Bactrim) trimethoprim (From Bactrim) Allergy Unknown Verified 05/12/25 18:07 hydrocodone (From Vicodin) AdvReac Severe Vomiting Verified 05/12/25 18:07 adhesive tape AdvReac Blister Verified 05/12/25 18:07 Review of Systems Review of Systems: All systems reviewed & are unremarkable except as noted in HPI and below PMFSH Past Medical History Medical History Lumbar spondylosis Fatigue Iron deficiency anemia Diabetes Factor V Leiden Osteomyelitis History of TIA (transient ischemic attack) Restless leg syndrome Insomnia Portal hypertension Atrial fibrillation 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 01/16/25 patient declined SDOH Smoking packs per day: 2 Smoking cigarettes per day: 40.0 Years smoked: 20 Smoking pack-years: 40.00 Smoking status: Former smoker Tobacco type: cigarettes Smoking end date: 10/23/15 Additional smoking assessment comments: Quit 2015. 35pk yr history Alcohol intake: former Substance use: former Substance use type: marijuana Other substance usage details: Marijuana tea daily Last use: 09/11 Do You Feel Safe in your Home?: Yes Lack of Transportation: YES Lack of Food: Often True Current Housing: I Have Housing Concerned About Future Housing: YES Difficulty Paying Gas/Electric Bills: YES Difficulty Paying for Meds: YES Currently Unemployed: YES Education: Bachelor's Degree Difficulty w/ Childcare or Family Care: No Living arrangements: with family Occupation/Education: retired Spiritual care concerns: No Exam Narrative: GENERAL APPEARANCE: WELL-DEVELOPED, WELL-NOURISHED SKIN: NORMAL COLOR HEAD: NORMOCEPHALIC, NONTRAUMATIC EYES: CLEAR CONJUNCTIVA ENT: OROPHARYNX NORMAL, EARS NORMAL, NOSE NORMAL NECK: SUPPLE, NONTENDER CHEST AND RESPIRATORY: AIRWAY PATENT, NO RESPIRATORY DISTRESS, NO ACCESSORY MUSCLE USE HEART: REGULAR RATE/RHYTHM ABDOMEN: SOFT, NONTENDER, NO ORGANOMEGALY, QUIET BOWEL SOUNDS VASCULAR: NORMAL PERIPHERAL PULSES, NORMAL CAPILLARY REFILL. MUSCULOSKELETAL: NORMAL RANGE OF MOTION, NONTENDER BACKNO LOCALIZED TENDERNESS, NO DIFFERENT SIZE OF THE RIGHT OR LEFT LOWER EXTREMITY NEUROLOGIC: ALERT AND ORIENTED ?3, MARKETING BUDGET ANALYST IS NORMAL TESTED, NO GROSS MOTOR DEFICIT Course Vital Signs Vital signs: Vital Signs Temperature 36.8 C 07/21/25 20:38 Pulse Rate 76 07/21/25 20:38 Respiratory Rate 18 07/21/25 20:38 Blood Pressure 105/61 07/21/25 20:38 Pulse Oximetry 98 07/21/25 20:38 Oxygen Delivery Room Air 07/21/25 20:38 Temperature 36.8 C 07/21/25 20:38 Pulse Rate 76 07/21/25 20:38 Respiratory Rate 18 07/21/25 20:38 Blood Pressure 105/61 07/21/25 20:38 Pulse Oximetry 98 07/21/25 20:38 Oxygen Delivery Room Air 07/21/25 20:38 Medical Decision Making [facility] Narrative Medical decision making narrative: DIFFERENTIAL DIAGNOSIS LEFT LOWER LEG DEEP VEIN THROMBOSIS ACUTE VERSUS CHRONIC. PATIENT IS TELLING ME THAT SHE IS FAMILIAR WITH HER BODY AND HE KNEW THAT SHE HAD BLOOD CLOT AT THE LEFT LOWER EXTREMITY 5-6 MONTHS AGO. NEVER BEEN SEEN BY A DOCTOR OR HAD OFFICIAL DIAGNOSIS OF THAT. PATIENT CURRENTLY ON ELIQUIS 5 MG TWICE A DAY. VENOUS DOPPLER TODAY SHOWED DEEP VEIN THROMBOSIS. I AM NOT SURE THIS IS ACUTE OR CHRONIC. IN CASE OF THIS BLOOD CLOT IS NEW THAT MEAN PATIENT PROBABLY NOT TAKING THE ELIQUIS PRESCRIBED . MY PLAN TO TREAT PATIENT ACUTE DEEP VEIN THROMBOSIS, WILL START ELIQUIS 10 MG TWICE A DAY FOR 7 DAYS THEN GO BACK ON 5 MG TWICE A DAY. PATIENT DOES HAVE HER ELIQUIS IN HER PURSE AND TALK 10 MG OF ELIQUIS IN THE ED PRIOR TO DISCHARGE. Vital Signs Vital Signs: Vital Signs Temperature 36.8 C 07/21/25 20:38 Pulse Rate 76 07/21/25 20:38 Respiratory Rate 18 07/21/25 20:38 Blood Pressure 105/61 07/21/25 20:38 Pulse Oximetry 98 07/21/25 20:38 Oxygen Delivery Room Air 07/21/25 20:38 Temperature 36.8 C 07/21/25 20:38 Pulse Rate 76 07/21/25 20:38 Respiratory Rate 18 07/21/25 20:38 Blood Pressure 105/61 07/21/25 20:38 Pulse Oximetry 98 07/21/25 20:38 Oxygen Delivery Room Air 07/21/25 20:38 Critical Care Time Critical Care Time Critical Care Time: No Discharge Plan Discharge Clinical Impression: Deep vein thrombosis, Factor V Leiden mutation Patient Disposition: Home Condition: Stable Instructions: Deep Vein Thrombosis Prevention (ED) Additional Instructions: RETURN IF SYMPTOMS ARE WORSENING , CALL YOUR FAMILY PHYSICIAN FOR APPOINTMENT, TAKE TYLENOL NEEDED FOR ACHES AND PAIN, CONTINUE HOME MEDICATIONS. TAKE ELIQUIS 10 MG EVERY 12 HOURS FOR 1 WEEK THEN GO BACK ON 5 MG TWICE A DAY. Patient Language: Ecuadorean Prescriptions: No Action ondansetron 4 mg tablet,disintegrating 4 mg PO Q4H 0 Days Qty: 10 0RF Rx Instructions: 1st dose 1-2 hr before radiation amoxicillin 500 mg tablet 1,000 mg PO Q12H 7 Days Qty: 28 0RF meclizine 25 mg tablet 25 mg PO TID PRN (Reason: dizziness) Qty: 20 0RF tizanidine 2 mg capsule 2 mg PO TID mupirocin [Centany] 2 % ointment 1 applic topical QID Qty: 44 3RF Rx Instructions: Melt 2 in in each irrigation bottle irrigate 4 times per day sucralfate 1 gram tablet 1 g PO TID PRN (Reason: Acid Reflux) ascorbic acid (vitamin C) [Vitamin C] 1,000 mg Tablet 1 g PO DAILY aspirin 81 mg Tablet,Delayed Release (Dr/Ec) 81 mg PO DAILY grytgrxh-dafk-hkrxn-oreg-capry 100 mg-150 mg- 50 mg-150 mg Capsule 1 cap PO DAILY mercaptopurine 50 mg tablet 50 mg PO DAILY sumatriptan succinate [Imitrex] 50 mg Tablet 50 mg PO ONCE PRN (Reason: MIGRAINES) hydrocortisone acetate 25 mg suppository 25 mg RECTAL DAILY PRN (Reason: CROHN'S EXAC) Saccharomyces boulardii [Florastor] 250 mg Capsule 250 mg PO TID Qty: 30 0RF linezolid 600 mg Tablet 600 mg PO Q12HR Qty: 18 0RF Humira Pen 40 mg/0.8 mL pen injector kit See Rx Instructions subcut .Every other Week Qty: 2 10RF Rx Instructions: inject one - 40 mg/0.8 mL pen every other week subcut . pantoprazole 40 mg tablet,delayed release (DR/EC) 40 mg PO QAM Qty: 90 0RF cholecalciferol (vitamin D3) 1,250 mcg (50,000 unit) capsule See Rx Instructions .ROUTE .COMPLEX Qty: 12 5RF Dose Instruction: TAKE ONE CAPSULE BY MOUTH WEEKLY ON SUNDAY Rx Instructions: TAKE ONE CAPSULE BY MOUTH WEEKLY ON SUNDAY albuterol sulfate 2.5 mg /3 mL (0.083 %) solution for nebulization 2.5 mg inhalation Q4-6H PRN (Reason: shortness of breath or wheezing) Qty: 90 0RF albuterol sulfate 90 mcg/actuation HFA aerosol inhaler 2 inh inhalation Q4H PRN (Reason: shortness of breath or wheezing) Qty: 6.7 3RF paroxetine HCl [Paxil] 40 mg tablet 40 mg PO HS Qty: 90 1RF Eliquis 5 mg tablet 5 mg PO BID Qty: 60 3RF ropinirole 1 mg tablet 1 mg PO DAILY Qty: 30 3RF eszopiclone 3 mg tablet 3 mg PO QHS Qty: 90 0RF oxycodone-acetaminophen 10-325 mg tablet 1 tablet PO Q8H PRN (Reason: pain) Qty: 90 0RF alprazolam 0.5 mg tablet 0.5 mg PO BID Qty: 60 0RF Follow-up/Referrals: Kassandra Hooks APRN [Primary Care Provider, Family Practice]
--- OUTSIDE RECORDS SUMMARY | 2025-07-21 20:33 | XMS_ITS | Patient Health Record ---
Author Organization [facility] Address [address] [facility] [address] [place] [address] Care Team Providers Care Windows Software Engineer Name Role Phone Neva Kassandra PEÑA Primary Care Provider Kiah Puentes Unavailable [phone] Tiara Rodrigues Unavailable [phone] Allergies Allergen (clinical drug ingredient) Drug/Non Drug [...] History Observation Description Sex Assigned At Female Social History Drug/Alcohol: Social Info Question Answer Notes Drugs Have you used drugs other than those for medical reasons in the past 12 months? No Tobacco Use: Social Info Question Answer Notes Tobacco Control (Standard) Tobacco use: Former smoker Additional Details Category Social Info Options Details Drug/Alcohol: Do you drink alcohol? No Problems Problem Type SNOMED Code ICD Code Onset Dates Problem Status W/U Status Risk Notes Problem Severe recurrent major depression without psychotic features (76184357) Major depressive disorder, recurrent severe without psychotic features (F33.2) Active confirmed Problem Anger reaction (437156498) Anger reaction (R45.4) Active confirmed Encounters Encounter Location Date Provider Diagnosis [facility] [address] [place] [address] [place] [address] 10/21/2024 Kiah Hyde [facility] [employer] [employer] [address] [place] [address] [place] [address] 11/04/2024 Tiara Rodrigues Anger reaction R45.4 and Major depressive disorder, recurrent severe without psychotic features F33.2 [facility] [facility] [address] [place] [address] [place] [address] 12/08/2024 Tiarastephanie Rodrigues Major depressive disorder, recurrent severe without psychotic features F33.2 and Anger reaction R45.4 [facility], [facility] [address] [place] [address] [place] [address] 12/16/2024 Tiara Ronaldliter [facility], [facility] [address] [place] [address] [place] [address] 12/18/2024 Tiarastephanie Rodrigues Major depressive disorder, recurrent severe without psychotic features F33.2 and Anger reaction R45.4 [facility], [employer] [address] [place] [address] [place] [address] 12/25/2024 Tiara Rodrigues Major depressive disorder, recurrent [...] for medication review. 7. Potential Need for Retirement - Explore the patient's concerns about returning home and interest in fdc options. - Provide information on community resources including providing a flyer for the [facility] [employer]. Follow-up: - Schedule a follow-up appointment to [...] for medication review. 7. Potential Need for Retirement - Explore the patient's concerns about returning home and interest in fdc options. - Provide information on community resources including providing a flyer for the [facility] [employer]. Follow-up: - Schedule a follow-up appointment to assess progress and continue addressing therapy goals, offering virtual sessions to overcome transportation barriers. 12/08/2024 Major depressive disorder, recurrent severe without psychotic features (ICD-10 - F33.2) Corazon would nirav yin to continue to meet for individual therapy to better manage depression, anxiety, and anger along with increasing positive communication skills with her family. 12/08/2024 Anger reaction (ICD-10 - R45.4) Corazon yin to continue to meet for individual therapy [...] and Alexa to maintain consistent communication with [employer]'s teachers and school staff. Recommend family [...] anger and potential aggression towards Irina. Encourage Coarzon to utilize coping strategies and techniques learned in therapy to better manage her emotions. Behavioral Issues and Family Dynamics Encourage Corazon and Alexa to maintain consistent communication with [employer]'s teachers and school staff. Recommend family [...] Insured Coverage Start Date Coverage End Date [id number] [place] [address] [id number] Danette Thomas Self - patient is the insured Medical (General) History Medical History History ICD Code A'Fib Crohn's Disease DM Hx of CVA Hx of TIA Insomnia Portal HTN
--- OUTSIDE RECORDS SUMMARY | 2025-07-21 20:33 | XMS_ITS | Encounter Summary ---
Author Organization [facility] Address [address] [place] [address] Phone Care Team Providers Care Marketing Research Intern Name Role Phone Jesus Gonzalez DO Primary Care Provider Odilon Vyas MD Primary Care Provider + [phone] Lucho Peralta MD Unavailable Xiomara Carlos MD Primary Care Provider [phone] Odilon Vyas MD Primary Care Provider + [phone] Unknown, Notinfile Primary Care Provider Unavail able Kassandra Hooks NP Primary Care Provider + Encounter Details Date Type Department Care Team (Latest Contact Info) Description 08/16/2015 Orders Only [facility] CARDIOLOGY Chasity Borjas, CARMINA [address] [facility] [address] [place], [place] [id number] Social History Tobacco Use Types Packs/Day Years Used Date Smoking Tobacco: Never Assessed Comments Unknown Sex and Gender Information Value Date Recorded Sex Assigned at Not on file 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 Gender Identity Female 06/12/2023 3:27 PM CDT [...] filedocumented in this encounter Care Teams Marketing Research Intern Relationship Specialty Start Date End Date Jesus Gonzalez DO [address] [place] [address] PCP - General Family Medicine 10/26/21 02/07/23 Odilon Vyas MD [address] [place] [address] PCP - General Family Medicine 02/08/23 02/07/24 Xiomara Carlos MD [address] [place] [address] PCP - General Psychiatry 02/08/24 03/23/24 Odilon Vyas MD [address] [place] [address] PCP - General Family Medicine 03/24/24 08/12/24 Unknown, Notinfile PCP - General 08/13/24 08/26/24 Kassandra Hooks NP PCP - General Nurse Practitioner 08/27/24 Lucho Peralta MD [address] [place] [address] Referring Physician Otolaryngology 12/07/23 documented as of this encounter
--- OUTSIDE RECORDS SUMMARY | 2025-07-21 20:33 | XMS_ITS | Encounter Summary ---
Author Organization [facility] Address [address] [place] [address] Phone Care Team Providers Care Shared Services Representative Name Role Phone Jesus Gonzalez DO Primary Care Provider Odilon Vyas MD Primary Care Provider + [phone] Lucho Peralta MD Unavailable Xiomara Carlos MD Primary Care Provider [phone] Odilon Vyas MD Primary Care Provider + [phone] Unknown, Notinfile Primary Care Provider Unavail able Kassandra Hooks NP Primary Care Provider + Encounter Details Date Type Department Care Team (Latest Contact Info) Description 08/17/2015 Orders Only [facility] C[facility] Chasity Borjas, CARMINA [address] [facility] [address] [place], [place] [id number] Social History Tobacco Use Types Packs/Day Years Used Date Smoking Tobacco: Never Assessed Comments Unknown Sex and Gender Information Value Date Recorded Sex Assigned at Not on file 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 Gender Identity Female 06/12/2023 3:27 PM CDT [...] on filedocumented in this encounter Care Teams Shared Services Representative Relationship Specialty Start Date End Date Jesus Gonzalez DO [address] [place] [address] PCP - General Family Medicine 10/26/21 02/07/23 Odilon Vyas MD [address] [place] [address] PCP - General Family Medicine 02/08/23 02/07/24 Xiomara Carlos MD [address] [place] [address] PCP - General Psychiatry 02/08/24 03/23/24 Odilon Vyas MD [address] [place] [address] PCP - General Family Medicine 03/24/24 08/12/24 Unknown, Notinfile PCP - General 08/13/24 08/26/24 Kassandra Hooks, EDWIGE PCP - General Nurse Practitioner 08/27/24 Lucho Peralta MD [facility] [place] [address] Referring Physician Otolaryngology 12/07/23 documented as of this encounter
--- OUTSIDE RECORDS SUMMARY | 2025-07-21 20:33 | XMS_ITS | Clinical Summary ---
Author Organization [facility] Address [address] [place] [address] Care Team Providers Care Diabetes Clinical Manager Name Role Phone Joanne Dawkins MD Primary Care Provider [phone] Allergies Active Allergy Reactions Criticality Noted Date Comments Amoxicillin-Pot Clavulanate Other (see comment) Low 02/06/2023 Makes Crohn's flare up Hydrocodone-Acetaminop hen Nausea and Vomiting,Other (see comment) High 05/29/2016 Stanford Latex Itching High 08/10/2016 Lidocaine Itching Low 08/10/2016 Silver Other (see comment) High 07/19/2023 Tegaderm dressing- used with PICC line (fdc is when she had reaction) Sulfa Antibiotics [...] Vaccines (1 of 2) 2021 PHQ-2 (Physician Telida) 11/19/2024 09/12/2024 COVID-19 Vaccine (1 - 2023-2 5 season) 2025 Postponed from 07/20 (Patient Refused) RSV Immunizations Under 20 Months Aged Out No longer eligible based on patient's age to complete this topic Insurance Care Teams Diabetes Clinical Manager Relationship Specialty [place] [address] [facility] [address] [place] [address] PCP - General INTERNAL MEDICINE 09/09/24
--- OUTSIDE RECORDS SUMMARY | 2025-07-21 20:33 | XMS_ITS | Encounter Summary ---
Author Organization [facility] Address [address] [place] [address] Phone Care Team Providers Care Elastic Yarn Twister Name Role Phone Lucho Peralta MD Unavailable Odilon Vyas MD Primary Care Provider [phone] Unknown, Notinfile Primary Care Provider Unavail able Kassandra Hooks NP Primary Care Provider + Encounter Details Date Type Department Care Team (Late st Contact Info) Description 06/24/2024 Orders Only [facility] Medicine Gastroenterology [address] [facility] Medical Office Building [address], [address] [place] [address] Irma Dillon MD [address] [place] [address] Social History Tobacco Use Types [...] on file Legal Sex Female 10:13 AM IT INTEGRATION ARCHITECT Gender Identity Female 06/12/2023 3:27 PM CDT [...] on filedocumented in this encounter Care Teams Elastic Yarn Twister Relationship Specialty Start Date End Date Odilon Vyas MD [address] [place] [address] PCP - General Family Medicine 03/24/24 08/12/24 Unknown, Notinfile PCP - General 08/13/24 08/26/24 Kassandra Hooks NP PCP - General Nurse Practitioner 08/27/24 Lucho Peralta MD Referring Physician Otolaryngology 12/07/23 documented as of this encounter
--- OUTSIDE RECORDS SUMMARY | 2025-07-21 20:33 | XMS_ITS | Encounter Summary ---
Author Organization [facility] Address [address] [place] [address] Phone Care Team Providers Care Boat Puller Name Role Phone Jesus Gonzalez DO Primary Care Provider Odilon Vyas MD Primary Care Provider + [phone] Lucho Peralta MD Unavailable Xiomara Carlos MD Primary Care Provider [phone] Odilon Vyas MD Primary Care Provider + [phone] Unknown, Notinfile Primary Care Provider Unavail able Kassandra Hooks NP Primary Care Provider + Encounter Details Date Type Department Care Team (Latest Contact Info) Description 08/02/2015 Orders Only [facility] CARDIOLOGY Chasity Borjas, CARMINA [address] [facility] [address] [place], [place] [id number] Social History Tobacco Use Types Packs/Day Years Used Date Smoking Tobacco: Never Assessed Comments Unknown Sex and Gender Information Value Date Recorded Sex Assigned at Not on file Legal Sex Female 10:13 AM ASSOCIATE Gender Identity Female 06/12/2023 3:27 PM CDT [...] on filedocumented in this encounter Care Teams Boat Puller Relationship Specialty Start Date End Date Jesus Gonzalez DO [address] [place] [address] PCP - General Family Medicine 10/26/21 02/07/23 Odilon Vyas MD [address] [place] [address] PCP - General Family Medicine 02/08/23 02/07/24 Xiomara Carlos MD [address] [place] [address] PCP - General Psychiatry 02/08/24 03/23/24 Odilon Vyas MD [address] [place] [address] PCP - General Family Medicine 03/24/24 08/12/24 Unknown, Notinfile PCP - General 08/13/24 08/26/24 Kassandra Hooks NP PCP - General Nurse Practitioner 08/27/24 Lucho Peralta MD [address] [place] [address] Referring Physician Otolaryngology 12/07/23 documented as of this encounter
[2025-07-21 20:38] VITALS: BP 105/61; PULSE 76; RESP 18; TEMP 36.8; O2SAT 98
== END 2025-07-21 21:00 | disposition home or self-care (01) ==
LOC: CHSED 20:55
PROVIDERS: Emergency Provider Emergency Medicine; PCP Nurse Practitioner Family
DX: I82.462 Acute embolism and thrombosis of left calf muscular vein (principal); D68.51 Activated protein C resistance; I48.91 Unspecified atrial fibrillation; E11.9 Type 2 diabetes mellitus without complications; Z87.891 Personal history of nicotine dependence; Z79.01 Long term (current) use of anticoagulants; Z86.73 Personal history of transient ischemic attack (TIA), and cerebral infarction without residual deficits
CPT/HCPCS: 99281

== ENCOUNTER 2025-07-24 16:51 | Emergency (ER) | payer BC, SELFPAY ==
--- OUTSIDE RECORDS SUMMARY | 2016-01-18 10:45 | XMS_ITS | Continuity of Care Document ---
Author Organization [employer] Address [address] [place] [address] Phone Care Team Providers Care Junior Systems Engineer Name Role Phone Lorrie HUYNH, Meeta Unavailable Unavailable Advance Directives Directive Yes / No Effective Date File Name No Information Encounters Encounter Description Practice Location Reason(s) For Visit Diagnoses Date Provider Providers Copied on Encounter [employer], [facility], [place], [address], [place] tel:[phone] [facility] No Information Lorrie Tim. [address] [place], [place], [address], [place]. tel:[phone] Family History Family Member Type Diagnosis Age At Onset Mother Problem (finding) malignant neoplasm of l kaitlyner Father Problem (finding) hypertension Payers Payer name Insurance type Covered alliance party ID Authoriza tion(s) [facility] Ppo/EPO BL [id number] Social History Type Description Quantity Date Captured [...]
--- OUTSIDE RECORDS SUMMARY | 2016-01-18 10:45 | XMS_ITS | Continuity of Care Document ---
Author Organization [facility] Address [address] [place] [address] Phone Care Team Providers Care Gis Software Developer Name Role Phone Lorrie HUYNH, Meeta Unavailable Unavailable Advance Directives Directive Yes / No Effective Date File Name No Information Encounters Encounter Description Practice Location Reason(s) For Visit Diagnoses Date Provider Providers Copied on Encounter [facility], [facility], [address], [place] tel:[phone] [facility] No Information Lorrie Tim. [address] [place], [place], [address], [place]. tel:[phone] Family History Family Member Type Diagnosis Age At Onset Mother Problem (finding) malignant neoplasm of l kaitlyner Father Problem (finding) hypertension Payers Payer name Insurance type Covered green party ID Authoriza tion(s) [facility] Ppo/EPO BL [id number] Social History Type Description Quantity Date Captured [...]
--- OUTSIDE RECORDS SUMMARY | 2016-10-11 07:00 | XMS_ITS | Continuity of Care Document ---
Author Organization [facility] Address [address] [place] [address] Phone Care Team Providers Care Magneto Specialist Name Role Phone Zahira Isbell MD Unavailable Unavailable Procedures Procedure Date Electrocardiogram report Advance Directives Directive Yes / No Effective Date File Name No Information Encounters Encounter Description Practice Location Reason(s) For Visit Diagnoses Date Provider Providers Copied on Encounter [facility], [address], [place], [place], [address], [place] tel:[phone] [facility] No Information 6 Sukhi Rodriges. [address] [place] [address], [facility], [place]. tel:[phone] Family History Family Member Type Diagnosis Age At Onset No Information Payers Payer name Insurance type Covered democrat ID Authoriza tion(s) [facility] PPO BL [id number] Social History Type Description Quantity Date Captured [...]
--- OUTSIDE RECORDS SUMMARY | 2016-10-11 07:00 | XMS_ITS | Continuity of Care Document ---
Author Organization [facility] Address [address] [place] [address] Phone Care Team Providers Care Quality Analyst Name Role Phone Zahira Isbell MD Unavailable Unavailable Procedures Procedure Date Electrocardiogram report Advance Directives Directive Yes / No Effective Date File Name No Information Encounters Encounter Description Practice Location Reason(s) For Visit Diagnoses Date Provider Providers Copied on Encounter [facility], [address], [place], [place], [id number], [place] tel:[phone] [facility] No Information 6 Sukhi Rodriges. [address] [place] [address], [facility], [place]. tel:[phone] Family History Family Member Type Diagnosis Age At Onset No Information Payers Payer name Insurance type Covered green party ID Authoriza tion(s) [facility] PPO BL [id number] Social History Type Description Quantity Date Captured [...]
--- NOTE | ~2025-07-24 | CT_ITS ---
EXAMINATION: CTA chest PE abdomen pel DATE: 07/24/2025 21:08 CDT INDICATION: Shortness of breath. Abdominal pain. DVT. TECHNIQUE: Computed tomographic angiography (CTA) of the chest, abdomen, and pelvis was performed without and with 100 mL Omnipaque-350 intravenous contrast. The dose-length product was 719.73 mGy-cm. Maximum intensity projection 3D- reconstructions of the aorta and other arteries were constructed by the technologist on a separate workstation. COMPARISON: None. FINDINGS: CHEST CTA: There are weblike defects in the main pulmonary artery, suspicious for chronic pulmonary embolism. No large defects in the remainder of the pulmonary arteries. No thoracic lymphadenopathy. Heart size normal. No significant pleural or pericardial effusion. No thoracic lymphadenopathy. No focal airspace consolidation. No endobronchial lesions. No pneumothorax. No suspicious pulmonary nodules or masses. ABDOMEN AND PELVIS CTA: The liver, spleen, pancreas, adrenal glands and kidneys are unremarkable. Gallbladder is present. Status post partial right colonic resection. Correlate for history of malignancy. There is peritoneal stranding anteriorly with areas of nodularity. Nonobstructive bowel gas pattern. There is an enhancing mass measuring 3.7 cm. No significant vascular abnormality. No free air or free fluid. Nonobstructive bowel pattern. No focal lytic or blastic lesions. No evidence for free air or free fluid. IMPRESSION: 1. Main pulmonary artery web-like defect, most consistent with chronic pulmonary embolism. 2: Mesenteric and peritoneal stranding with nodularity, differential diagnosis includes peritoneal carcinomatosis, (most likely given adnexal mass), infectious peritonitis although less common and inflammatory conditions such as sclerosing mesenteritis. 3: Enhancing right adnexal mass measuring 3.7 cm. Differential diagnosis includes primary ovarian neoplasm, pedunculated subserosal fibroid and metastatic lesion. Consider further evaluation with pelvic MRI with contrast for further characterization of adnexal mass, serum tumor markers and possible gy necologic oncology referral. Reviewed, dictated and finalized at location O. IMPRESSION: 1. Main pulmonary artery web-like defect, most consistent with chronic pulmonar y embolism. 2: Mesenteric and peritoneal stranding with nodularity, differential diagnosis includes peritoneal carcinomatosis, (most likely given adnexal mass), infectiou s peritonitis although less common and inflammatory conditions such as sclerosi ng mesenteritis. 3: Enhancing right adnexal mass measuring 3.7 cm. Differential diagnosis inclu wil primary ovarian neoplasm, pedunculated subserosal fibroid and metastatic le yeimi. Consider further evaluation with pelvic MRI with contrast for further moe racterization of adnexal mass, serum tumor markers and possible gynecologic onc ology referral.
--- NOTE | ~2025-07-24 | XR_ITS ---
EXAMINATION: XR chest 1V portable 07/24/2025 17:23 INDICATION: Dyspnea PROCEDURE: AP portable chest COMPARISON: No prior studies for comparison. FINDINGS: The lungs are clear. The cardiomediastinal silhouette is within normal limits. There are no pleural effusions. There is no pneumothorax suspected. IMPRESSION: 1: NO ACUTE CARDIOPULMONARY DISEASE. Reviewed, dictated and finalized at location O.
--- OUTSIDE RECORDS SUMMARY | 2025-07-24 16:54 | XMS_ITS | Encounter Summary ---
Author Organization [facility] Address [address] [place] [address] Phone Care Team Providers Care Family Service Worker Name Role Phone Jesus Gonzalez DO Primary Care Provider Odilon Vyas MD Primary Care Provider + [phone] Lucho Peralta MD Unavailable Xiomara Carlos MD Primary Care Provider [phone] Odilon Vyas MD Primary Care Provider + [phone] Unknown, Notinfile Primary Care Provider Unavail able Kassandra Hooks NP Primary Care Provider + Encounter Details Date Type Department Care Team (Latest Contact Info) Description 08/17/2015 Orders Only [facility] CARDIOLOGY Chasity Borjas, CARMINA [address] [facility] [address] [place], [place] [id number] Social History Tobacco Use Types Packs/Day Years Used Date Smoking Tobacco: Never Assessed Comments Unknown Sex and Gender Information Value Date Recorded Sex Assigned at Not on file Legal Sex Female 10:13 AM FITNESS ASSISTANT Gender Identity Female 06/12/2023 3:27 PM [...] on filedocumented in this encounter Care Teams Family Service Worker Relationship Specialty Start Date End Date Jesus Gonzalez DO [address] [place] [address] PCP - General Family Medicine 10/26/21 02/07/23 Odilon Vyas MD [address] [place] [address] PCP - General Family Medicine 02/08/23 02/07/24 Xiomara Carlos MD [address] [place] [address] PCP - General Psychiatry 02/08/24 03/23/24 Odilon Vyas MD [address] [place] [address] PCP - General Family Medicine 03/24/24 08/12/24 Unknown, Notinfile PCP - General 08/13/24 08/26/24 Kassandra Hooks, EDWIGE PCP - General Nurse Practitioner 08/27/24 Lucho Peralta MD [facility] [place] [address] Referring Physician Otolaryngology 12/07/23 documented as of this encounter
--- OUTSIDE RECORDS SUMMARY | 2025-07-24 16:54 | XMS_ITS | Encounter Summary ---
Author Organization [facility] Address [address] [place] [address] Phone Care Team Providers Care Scale Tank Operator Name Role Phone Jesus Gonzalez DO Primary Care Provider Odilon Vyas MD Primary Care Provider + [phone] Lucho Peralta MD Unavailable Xiomara Carlos MD Primary Care Provider [phone] Odilon Vyas MD Primary Care Provider + [phone] Unknown, Notinfile Primary Care Provider Unavail able Kassandra Hooks NP Primary Care Provider + Encounter Details Date Type Department Care Team (Latest Contact Info) Description 05/10/2015 Orders Only [facility] CARDIOLOGY Chasity Borjas, CARMINA [address] 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 OPERATOR Gender Identity Female 06/12/2023 3:27 PM [...] on filedocumented in this encounter Care Teams Scale Tank Operator Relationship Specialty Start Date End Date Jesus Gonzalez DO [address] [place] [address] PCP - General Family Medicine 10/26/21 02/07/23 Odilon Vyas MD [address] [place] [address] PCP - General Family Medicine 02/08/23 02/07/24 Xiomara Carlos MD [address] [place] [address] PCP - General Psychiatry 02/08/24 03/23/24 Odilon Vyas MD [address] [place] [address] PCP - General Family Medicine 03/24/24 08/12/24 Unknown, Notinfile PCP - General 08/13/24 08/26/24 Kassandra Hooks NP PCP - General Nurse Practitioner 08/27/24 Lucho Peralta MD [address] [place] [address] Referring Physician Otolaryngology 12/07/23 documented as of this encounter
--- OUTSIDE RECORDS SUMMARY | 2025-07-24 16:54 | XMS_ITS | Encounter Summary ---
Author Organization [facility] Address [address] [place] [address] Phone Care Team Providers Care Container Finisher Name Role Phone Jesus Gonzalez DO Primary Care Provider Odilon Vyas MD Primary Care Provider + [phone] Lucho Peralta MD Unavailable Xiomara Carlos MD Primary Care Provider [phone] Odilon Vyas MD Primary Care Provider + [phone] Unknown, Notinfile Primary Care Provider Unavail able Kassandra Hooks NP Primary Care Provider + Encounter Details Date Type Department Care Team (Latest Contact Info) Description 08/02/2015 Orders Only [facility]IOLOG[facility] Chasity Borjas, CARMINA [address] [facility] [address] [place], [place] [id number] Social History Tobacco Use Types Packs/Day Years Used Date Smoking Tobacco: Never Assessed Comments Unknown Sex and Gender Information Value Date Recorded Sex Assigned at Not on file Legal Sex Female 10:13 AM CASING SPLITTER Gender Identity Female 06/12/2023 3:27 PM CDT [...] on filedocumented in this encounter Care Teams Container Finisher Relationship Specialty Start Date End Date Jesus Gonzalez DO [address] [place] [address] PCP - General Family Medicine 10/26/21 02/07/23 Odilon Vyas MD [address] [place] [address] PCP - General Family Medicine 02/08/23 02/07/24 Xiomara Carlos MD [address] [place] [address] PCP - General Psychiatry 02/08/24 03/23/24 Odilon Vyas MD [address] [place] [address] PCP - General Family Medicine 03/24/24 08/12/24 Unknown, Notinfile PCP - General 08/13/24 08/26/24 Kassandra Hooks NP PCP - General Nurse Practitioner 08/27/24 Lucho Peralta MD [address] [place] [address] Referring Physician Otolaryngology 12/07/23 documented as of this encounter
--- OUTSIDE RECORDS SUMMARY | 2025-07-24 16:54 | XMS_ITS | Clinical Summary ---
Author Organization [facility] Address [address] [place] [address] Care Team Providers Care Certified Dialysis Technician Name Role Phone Joanne Dawkins MD Primary Care Provider [phone] Allergies Active Allergy Reactions Criticality Noted Date Comments Amoxicillin-Pot Clavulanate Other (see comment) Low 02/06/2023 Makes Crohn's flare up Hydrocodone-Acetaminop hen Nausea and Vomiting,Other (see comment) High 05/29/2016 [place] Latex Itching High 08/10/2016 Lidocaine Itching Low 08/10/2016 Silver Other (see comment) High 07/19/2023 Tegaderm dressing- used with PICC line (snf is when she had reaction) Sulfa Antibiotics [...] Vaccines (1 of 2) 2021 PHQ-2 (Physician [place]) 11/19/2024 09/12/2024 COVID-19 Vaccine (1 - 2023-2 5 season) 2025 Postponed from 07/20 (Patient Refused) RSV Immunizations Under 20 Months Aged Out No longer eligible based on patient's age to complete this topic Insurance Care Teams Certified Dialysis Technician Relationship Specialty [place] [address] [facility] [address] [place] [address] PCP - General INTERNAL MEDICINE 09/09/24
--- OUTSIDE RECORDS SUMMARY | 2025-07-24 16:54 | XMS_ITS ---
Author Organization [facility] Address [address] [place] [address] Care Team Providers Care Organ Recovery Coordinator Name Role Phone Lucho Peralta MD Unavailable [...] 11/13/2023 Assessment & Plan (11/13/2023 4:00 PM GROUNDSKEEPING MAINTENANCE): PO2W cataract extraction (CE)/posterior chamber intraocular lens [...] cataracts both eyes (OU) secondary to termite technician prednisone usage +1D otc readers for distance [...] We will have MRE from [facility] read by our radiologists. Assessment & Plan (02/06/2023 12:22 PM CDT): MRE on 12/08/22 showed cystic lesions of the pancreas measuring up to 6mm. The patient only had an image of the impression of this report, and we do not have access to the report or study itself. - Patient has given authorization to release MRE report from [facility]. We will also obtain the images and [...] pain on recent MRE at [facility]. We will obtain this study and have [...] the IC valve, prompting ileocolic resection ([facility]) - 6 inches resected. Path [...] the IC valve, prompting ileocolic resection ([facility]) - 6 inches resected. Path [...] the IC valve, prompting ileocolic resection ([facility]) - 6 inches resected. Path [...] dose. Assessment & Plan (10/23/2022 11:27 AM GROUNDSKEEPING MAINTENANCE): Diagnosis in 2014. Humira since Mar, 2016. [...] by patient yet. -recent blood work from [facility] reviewed. Noted to have urinalysis, [...] continue. Assessment & Plan (09/25/2022 10:44 AM GROUNDSKEEPING MAINTENANCE): Diagnosis in 2014. Humira since Mar, 2016. [...] today -Talked to her GI group at [facility] Dr Torres on-call, suggested if pt is stable to d/c to be admitted to [facility] work her up further. Talking to the [...]
--- OUTSIDE RECORDS SUMMARY | 2025-07-24 16:54 | XMS_ITS | Encounter Summary ---
Author Organization [facility] Address [address] [place] [address] Phone Care Team Providers Care General Utility Machine Operator Name Role Phone Jesus Gonzalez DO Primary Care Provider Odilon Vyas MD Primary Care Provider + [phone] Lucho Peralta MD Unavailable Xiomara Carlos MD Primary Care Provider [phone] Odilon Vyas MD Primary Care Provider + [phone] Unknown, Notinfile Primary Care Provider Unavail able Kassandra Hooks NP Primary Care Provider + Encounter Details Date Type Department Care Team (Latest Contact Info) Description 08/24/2015 Orders Only [facility] CARDIOLOGY Chasity Borjas, CARMINA [address] [facility] [address] [place], [place] [phone] Social History Tobacco Use Types Packs/Day Years Used Date Smoking Tobacco: Never Assessed Comments Unknown Sex and Gender Information Value Date Recorded Sex Assigned at Not on file Legal Sex Female 10:13 AM ADULT CARE MANAGER Gender Identity Female 06/12/2023 3:27 PM [...] on filedocumented in this encounter Care Teams General Utility Machine Operator Relationship Specialty Start Date End Date Jesus Gonzalez DO [address] [place] [address] PCP - General Family Medicine 10/26/21 02/07/23 Odilon Vyas MD [address] [place] [address] PCP - General Family Medicine 02/08/23 02/07/24 Xiomara Carlos MD [address] [place] [address] PCP - General Psychiatry 02/08/24 03/23/24 Odilon Vyas MD [address] [place] [address] PCP - General Family Medicine 03/24/24 08/12/24 Unknown, Notinfile PCP - General 08/13/24 08/26/24 Kassandra Hooks NP PCP - General Nurse Practitioner 08/27/24 Lucho Peralta MD [address] [place] [address] Referring Physician Otolaryngology 12/07/23 documented as of this encounter
--- OUTSIDE RECORDS SUMMARY | 2025-07-24 16:54 | XMS_ITS | Encounter Summary ---
Author Organization [facility] Address [address] [place] [address] Phone Care Team Providers Care Certified Hyperbaric Technologist Name Role Phone Jesus Gonzalez DO Primary Care Provider Odilon Vyas MD Primary Care Provider + [phone] Lucho Peralta MD Unavailable Xiomara Carlos MD Primary Care Provider [phone] Odilon Vyas MD Primary Care Provider + [phone] Unknown, Notinfile Primary Care Provider Unavail able Kassandra Hooks NP Primary Care Provider + Encounter Details Date Type Department Care Team (Latest Contact Info) Description 08/16/2015 Orders Only [facility] CARDIOLOGY Chasity Borjas, CARMINA [address] [facility] [address] [place], [place] [id number] Social History Tobacco Use Types Packs/Day Years Used Date Smoking Tobacco: Never Assessed Comments Unknown Sex and Gender Information Value Date Recorded Sex Assigned at Not on file Legal Sex Female 10:13 AM HYPERBARIC TECH Gender Identity Female 06/12/2023 3:27 PM [...] on filedocumented in this encounter Care Teams Certified Hyperbaric Technologist Relationship Specialty Start Date End Date Jesus Gonzalez DO [address] [place] [address] PCP - General Family Medicine 10/26/21 02/07/23 Odilon Vyas MD [address] [place] [address] PCP - General Family Medicine 02/08/23 02/07/24 Xiomara Carlos MD [address] [place] [address] PCP - General Psychiatry 02/08/24 03/23/24 Odilon Vyas MD [address] [place] [address] PCP - General Family Medicine 03/24/24 08/12/24 Unknown, Notinfile PCP - General 08/13/24 08/26/24 Kassandra Hooks NP PCP - General Nurse Practitioner 08/27/24 Lucho Peralta MD [address] [place] [address] Referring Physician Otolaryngology 12/07/23 documented as of this encounter
--- OUTSIDE RECORDS SUMMARY | 2025-07-24 16:54 | XMS_ITS | Encounter Summary ---
Author Organization [facility] Address [address] [place] [address] Phone Care Team Providers Care Meter Installer Name Role Phone Lucho Peralta MD Unavailable Odilon Vyas MD Primary Care Provider [phone] Unknown, Notinfile Primary Care Provider Unavail able Kassandra Hooks NP Primary Care Provider + Encounter Details Date Type Department Care Team (Late st Contact Info) Description 06/24/[address] [facility] Medicine Gastroenterology [address] [facility] [address], [address] [place] [address] Irma Dillon MD [address] [place] [address] Social History Tobacco Use Types [...] on file Legal Sex Female 10:13 AM INSTRUMENT LENS GENERATOR Gender Identity Female 06/12/2023 3:27 PM CDT [...] on filedocumented in this encounter Care Teams Meter Installer Relationship Specialty Start Date End Date Odilon Vyas MD [address] [place] [address] PCP - General Family Medicine 03/24/24 08/12/24 Unknown, Notinfile PCP - General 08/13/24 08/26/24 Kassandra Hooks NP PCP - General Nurse Practitioner 08/27/24 Lucho Peralta MD Referring Physician Otolaryngology 12/07/23 documented as of this encounter
--- OUTSIDE RECORDS SUMMARY | 2025-07-24 16:54 | XMS_ITS | Clinical Summary ---
Author Organization [facility] Address [address] [place] [address] Care Team Providers Care Architectural Drafting Instructor Name Role Phone EstelaranjithJesus mena Primary Care Provider [phone] Allergies Active Allergy Reactions Criticality Noted Date Comments Hydrocodone-Acetaminop hen Other (See Comments),Nausea and Vomiting High 05/29/2016 [place] Latex Itching High 08/10/2016 Lidocaine-Transparent Dressing Itching [...] Encounters Date Type Department Care Team Description 07/22/2025 External Device Data [facility] ABSTRACTION Provider, Abstract 07/08/2025 External Device Data [facility] ABSTRACTION Provider, [...] on file Legal Sex Female 12:04 PM DIPPER AND BAKER Gender Identity Not on file Sexual Orientation [...] Sig/CT Colonography Q 5 years Discontinued [place] [address] [place] [address] PREFERRED Care Teams Architectural Drafting Instructor Relationship Specialty Start Date End Date Jesus Gonzalez DO [address] [place] [address] PCP - General Family Practice 01/17/22
--- OUTSIDE RECORDS SUMMARY | 2025-07-24 16:54 | XMS_ITS | Encounter Summary ---
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 I messaged her back to request more information and she requested a phone call. I spoke with patient this morning on the phone. She stated on Sunday07/21/25 she went to [facility] because her left calf felt on fire and it was huge compared to her right calf. Patient stated they did a doppler and found a bunch of clots in there. Patient stated she had to leave the hospital because her dairy nutrition specialist needed to go home. [facility] and stated they said they didn't have any clot management doctors. Patient was advised by [facility] to double up on her clot medication. Patient stated she normally takes 5mg Eliquis twice a day and now she is taking 10mg in the morning and 10mg in the evening. Patient stated her left calf is still warm totouch on the back but still endorses pain in her calf and also in her back. I asked if patient would be able to go to our facility to get a doppler as we cannot see any imaging from [place] and shestated she has a follow up appointment with Kassandra Hooks (MUSIC TEACHER from [facility]) today at 11AM but she would ditch that. I advised for her to keep this appointment and to call our office afterwardsas we would recommend she get a doppler today to determine if there are new clots in her calf. Patient stated she would probably go to [place] ED after the appointment but will call us with updates. Patient was seen on February 09, 2025 by Elle Medel NP for management of iron deficiency. Our office was not managing her Eliquis and patient had stopped Eliquis one day prior to seeing Elle Medel in clinic. Patient has follow up appointment on Aug 10 with Elle and she is aware of the above conversation. documented in this encounter Plan of Treatment Scheduled Procedures Name Priority Associated Diagnoses Date/Ti me COLONOSCOPY Iron deficiency documented as of this encounter Goals Goal Patient Goal Type Associated Problems Recent Progress Patient-Stated? Author CCM Chronic Pain Care Plan Chronic Care Management Worsening( 8:52 AM CDT) No Lashawn Thomas, CARMINA Note: Problem: Chronic Pain Goals: 1. Minimize further functional decline 2. Maximize quality of life 3. Control pain Strategies: - Activity/exercise program recommendation - Conservative stepwise pain medicine strategy with multi-disciplinary approach - Recommend healthy lifestyle strategies and compensatory methods as needed documented as of this encounter Visit Diagnoses Not on filedocumented in this encounter Care Teams Diamond Cutter Relationship Specialty Start Date End Date Kassandra Hooks NP PCP - General Nurse Practitioner 08/27/24 Lucho Peralta MD Referring Physician Otolaryngology 12/07/23 documented as of this encounter
--- OUTSIDE RECORDS SUMMARY | 2025-07-24 16:54 | XMS_ITS | Clinical Summary ---
Author Organization [facility] Address [address] [place] [address] Care Team Providers Care Key Account Representative Name Role Phone Lucho Peralta MD Unavailable Kassandra Hooks NP Primary Care Provider + Allergies Active Allergy Reactions Criticality Noted Date Comments Amoxicillin-Pot Clavulanate Other (See comments) Low 02/06/2023 Makes Crohn's flare up Sulfamethoxazole-Trime thoprim Other (See comments) Low 02/06/2023 Makes Crohn's flare up Hydrocodone-Acetaminop hen Nausea And Vomiting Medium 05/29/2016 [place] Latex Itching High 08/10/2016 Silver Blisters,Other (See comments) High 07/19/2023 Tegaderm dressing- used with PICC line (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) Sulfa Other [...] 40 mg tabletIndications: Generalized Anxiety Disorder,Started in [place] r/t anxiety and nerves/ chronic pain Take 1 tablet (40 mg total) by mouth nightly 023 Active cyanocobalamin (Vitamin B-12) 1,000 mcg sublingual tabletIndications: Prevention of Vitamin B12 Deficiency Take 1 tablet (1,000 mcg total) by mouth board stacker before breakfast No particular days Active turmeric [...] Humira Pen 40 mg/0.8 mL pen injector kitIndications:Mma Fighter hn's Disease Inject 0.8 mL (40 mg [...] 11/13/2023 Assessment & Plan (11/13/2023 4:00 PM TIRE AND TUBE REPAIRER): PO2W cataract extraction (CE)/posterior chamber intraocular lens [...] (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 - We will have MRE from [facility] read by our radiologists. Assessment & Plan (02/06/2023 12:22 PM CDT): MRE on 12/08/22 showed cystic lesions of the pancreas measuring up to 6mm. The patient only had an image of the impression of this report, and we do not have access to the report or study itself. - Patient has given authorization to release MRE report from [facility]. We will also obtain [...] her abdominal pain on recent MRE at [facility]. We will obtain this [...] valve Surgeries: ileocolic resection in 2019 at [facility] - 6 inches of small bowel [...] traverse the IC valve, prompting ileocolic resection ([facility]) - 6 inches resected. Path incidentally [...] traverse the IC valve, prompting ileocolic resection ([facility]) - 6 inches resected. Path incidentally [...] traverse the IC valve, prompting ileocolic resection ([facility]) - 6 inches resected. Path incidentally [...] dose. Assessment & Plan (10/23/2022 11:27 AM TIRE AND TUBE REPAIRER): Diagnosis in 2014. Humira since Mar, 2016. [...] by patient yet. -recent blood work from [facility] reviewed. Noted to have urinalysis, CBC, [...] continue. Assessment & Plan (09/25/2022 10:44 AM TIRE AND TUBE REPAIRER): Diagnosis in 2014. Humira since Mar, 2016. [...] today -Talked to her GI group at [facility] Dr Torres on-call, suggested if pt is stable to d/c to be admitted to [facility] work her up further. Talking to [...] Encounters Date Type Department Care Team Description 07/24/2025 Telephone [facility] Hematology [address] [facility] Floor 6 [place] [address] Daphney Nance RN 07/10/2025 Telephone [facility] Pain Center at the [address] [place] [address] Melvin Oneill DO Scheduling Appointments 07/08/2025 Documentation [facility] Gastroenterology [address] [place] [address] [place] [address] Koki Garcia LPN Switch from Linzess to Trulance 06/30/2025 9:30 AM CDT Office Visit [facility] Dermatology [address] [facility] [address] [place] [address] Caty Butterfield MD PhD Prurigo nodularis (Primary Dx); Scar; History of Crohn's disease 06/29/2025 Documentation [facility] Gastroenterology [address] [facility] Medical Office Building [address] [place] [address] Montrell Kern MD 06/26/2025 Telephone [facility] Gastroenterology [address] [place] [address] [place] [address] [place] [address] Daiana Rodríguez RMA 06/25/2025 4:00 PM CDT Office Visit [facility] Gastroenterology [address] [place] [address] [place] [address] [place] [address] Corazon Becerra, EDWIEG Crohn's disease of both small and large intestine with other complication (Primary Dx); High risk medications (not anticoagulants) long-term use; Factor V deficiency (HCC); Malignant neoplasm of appendix (HCC); Chiari malformation type I (HCC) 06/23/2025 Telephone [facility] Gastroenterology [address] [facility] 12th [place] [address] [place] [address] Daiana Rodríguez RMA rash 05/19/2025 Telephone [facility] Gastroenterology [address] [facility] 12th [place] [address] [place] [address] Daiana Rodríguez RMA 05/14/2025 4:00 PM CDT Office Visit [facility]) - [facility] ENT [address] [facility] 11th [place] [address] [place] [address] Josh Hummel MD Chronic pansinusitis (Primary Dx); Chronic sinusitis, unspecified location; Recurrent epistaxis from Last 3 Months Surgical History Surgery Date Site/Laterality Comments COLONOSCOPY 05/11/2020 [place] SINUS SURGERY 09/28/2016 Successful embolization of left [...] 1 Karin Thyroid disease Mother's Sister 2 Xcohitl [place] Bladder Cancer Paternal Grandfather Cameron Sr. 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 Gender Identity Female 06/12/2023 3:27 PM CDT [...] 09/25/2023 09/25/2022, 04/24/20 22 Influenza Vaccine (#1) 2025 Lung Cancer Screening [...] as needed Medical Devices Implanted Type Area Supervisor Paste Plant Device Identifier Shelf Expiration Date Model / Serial / Lot [employer] Lens Iol Cna0t0.230 Clareon Uva Autonom Cna0t0.230 - [id number] - [id number] Implanted:Qty: 1 on 10/29/2023 by Melvin San MD at [facility] Left: Eye [employer] [id number] 06/25/2026 CNA0T0.23 0 / [id number] / Procedures Procedure Name Priority Date/Time Associated Diagnosis Comments COLONOSCOPY 02/11/2025 9:[address] LUNG CANCER SCREENING Schedule Routine, Read Routine (OP Routine) 10/13/2024 4:36 PM TIRE AND TUBE REPAIRER Nicotine dependence, cigarettes, in remission from Last [...] Female Attending MD: Montrell Kern M.D. Room: [facility] ENDOSCOPY ROOM 05 Note Status: Finalized Procedure: Colonoscopy Indications: High risk colon cancer surveillance: Crohn'scolitis of 8 (or more) years duration with one-third (ormore) of the colon involved Providers: Montrell Kern M.D. Referring MD: Kassandra Hooks NP Medicines: See the Anesthesia note for documentation [...] The scope was passed under direct vision.The [id number] was introduced through the anusand advanced to [...] histology. There was evidence of a prior ojeu-da-svmi ileo-colonic anastomosisin the ascending colon. This was [...] to quiescent Crohn's disease. Biopsied. - Patent fqga-hc-[id number] ileo-colonic anastomosis, characterized by healthy appearing mucosa.Biopsied. [...] During normal business hours - [facility] [place]: [phone]. After hours, evening, nights, weekends and holidays- Please call the hospital lay up operator at and ask for the GI fellow groundwater consultant. Attending Participation: I personally performed the entire procedure. Electronically signed by Montrell Kern MD Montrell Kern M.D. 02/11/2025 10:11:17 AM Number of Addenda: 0 Note Initiated On: 02/11/2025 9:16 AM us Montrell Kern MD ENDOSCOPY PROCEDURES Final Resul t * CT Lung Cancer Screening (10/13/2024 4:36 PM TIRE AND TUBE REPAIRER) Anatomical Region Laterality Modality Chest N/A Computed Tomogra phy 10/17/2024 8:06 AM TIRE AND TUBE REPAIRER Narrative 10/17/2024 8:07 AM TIRE AND TUBE REPAIRER EXAM DESCRIPTION: CT LUNG CANCER SCREENING REASON [...] by David Ortiz M.D. SN: Report ID: [id number] Reading Location: [id number] Procedure Note David Ortiz MD - 10/17/2024 [...] David Ortiz M.D. SN: SN Report ID: [id number] Reading Location: [place] [address] Zia Hearn DO IMG CT PROCEDURES Final R esult from Last 3 Months or Most Recently Relevant to Health Maintenance [place] For more information, please contact: [phone] * Full Code (Latest Code Status on File) Date Activated Date Inactivated Comments 02/11/2025 8:23 AM 02/11/2025 2:57 PM * Full Code Date Activated Date Inactivated Comments 03/14/2023 9:25 AM 03/14/2023 4:21 PM Care Teams Key Account Representative Relationship Specialty Start Date End Date Kassandra Hooks NP PCP - General Nurse Practitioner 08/27/24 Lucho Peralta MD Referring Physician Otolaryngology 12/07/23
--- OUTSIDE RECORDS SUMMARY | 2025-07-24 16:54 | XMS_ITS | Encounter Summary ---
Author Organization [facility] Address [address] [place] [address] Care Team Providers Care Manuscript Reader Name Role Phone Odilon Vyas MD Primary Care Provider [phone] Lucho Peralta MD Unavailable Xiomara Carlos MD Primary Care Provider [phone] Odilon Vyas MD Primary Care Provider [phone] Unknown, Notinfile Primary Care Provider Unavail able Kassandra Hooks NP Primary Care Provider + Encounter Details Date Type Department Care Team (Late st Contact Info) Description 01/18/2024 Telephone [facility] Management Center at [facility] [address] [address], [address] [place] [address] Massimo Glynn MD [address] [address] Social History Tobacco Use Types Packs/Day Years [...] on file 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 Gender Identity Female 06/12/2023 3:27 PM CDT [...] on filedocumented in this encounter Care Teams Manuscript Reader Relationship Specialty Start Date End Date Odilon Vyas MD [address] [place] [address] PCP - General Family Medicine 02/08/23 02/07/24 Xiomara Carlos MD [address] [place] [address] PCP - General Psychiatry 02/08/24 03/23/24 Odilon Vyas MD [address] [place] [address] PCP - General Family Medicine 03/24/24 08/12/24 Unknown, Notinfile PCP - General 08/13/24 08/26/24 Kassandra Hooks NP PCP - General Nurse Practitioner 08/27/24 Lucho Peralta MD [address] [place] [address] Referring Physician Otolaryngology 12/07/23 documented as of this encounter
--- OUTSIDE RECORDS SUMMARY | 2025-07-24 16:54 | XMS_ITS | Encounter Summary ---
Author Organization [facility] Address [address] [place] [address] Phone Care Team Providers Care Biotechnician Name Role Phone Jesus Gonzalez DO Primary Care Provider Odilon Vyas MD Primary Care Provider + [phone] Lucho Peralta MD Unavailable Xiomara Carlos MD Primary Care Provider [phone] Odilon Vyas MD Primary Care Provider + [phone] Unknown, Notinfile Primary Care Provider Unavail able Kassandra Hooks NP Primary Care Provider + Encounter Details Date Type Department Care Team (Latest Contact Info) Description 08/21/2015 Orders Only [facility] CARDIOLOGY Chasity Borjas, CARMINA [address] [facility] [address] [place], [place] [id number] Social History Tobacco Use Types Packs/Day Years Used Date Smoking Tobacco: Never Assessed Comments Unknown Sex and Gender Information Value Date Recorded Sex Assigned at Not on file 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 Gender Identity Female 06/12/2023 3:27 PM [...] on filedocumented in this encounter Care Teams Biotechnician Relationship Specialty Start Date End Date Jesus Gonzalez DO [address] [place] [address] PCP - General Family Medicine 10/26/21 02/07/23 Odilon Vyas MD [address] [place] [address] PCP - General Family Medicine 02/08/23 02/07/24 Xiomara Carlos MD [address] [place] [address] PCP - General Psychiatry 02/08/24 03/23/24 Odilon Vyas MD [address] [place] [address] PCP - General Family Medicine 03/24/24 08/12/24 Unknown, Notinfile PCP - General 08/13/24 08/26/24 Kassandra Hooks NP PCP - General Nurse Practitioner 08/27/24 Lucho Peralta MD [address] [place] [address] Referring Physician Otolaryngology 12/07/23 documented as of this encounter
--- OUTSIDE RECORDS SUMMARY | 2025-07-24 16:54 | XMS_ITS | Encounter Summary ---
Author Organization [facility] Address [address] [place] [address] Care Team Providers Care Mill Hand Name Role Phone Odilon Vyas MD Primary Care Provider [phone] Lucho Peralta MD Unavailable Xiomara Carlos MD Primary Care Provider [phone] Odilon Vyas MD Primary Care Provider [phone] Unknown, Notinfile Primary Care Provider Unavail able Kassandra Hooks NP Primary Care Provider + Encounter Details Date Type Department Care Team (Late st Contact Info) Description 01/21/2024 Telephone Pain Management Center at 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 Gender Identity Female 06/12/2023 3:27 PM CDT [...] on filedocumented in this encounter Care Teams Mill Hand Relationship Specialty Start Date End Date Odilon Vyas MD [address] [place] [address] PCP - General Family Medicine 02/08/23 02/07/24 Xiomara Carlos MD [address] [place] [address] PCP - General Psychiatry 02/08/24 03/23/24 Odilon Vyas MD [address] [place] [address] PCP - General Family Medicine 03/24/24 08/12/24 Unknown, Notinfile PCP - General 08/13/24 08/26/24 Kassandra Hooks NP PCP - General Nurse Practitioner 08/27/24 Lucho Peralta MD [address] [place] [address] Referring Physician Otolaryngology 12/07/23 documented as of this encounter
[2025-07-24 16:57] VITALS: BP 115/58; PULSE 65; RESP 20; TEMP 36.4; O2SAT 98
--- NOTE | 2025-07-24 17:08 | ECG_ITS ---
Test Date: 2025-07-24 17:12:01 Measurements Intervals [place] Rate: 57 P: 74 AK: 149 QRS: 65 QRSD: 86 T: 62 QT: 406 QTc: 397 Interpretive Statements SINUS BRADYCARDIA No previous ECG available for comparison Electronically Signed On 07-25-2025 10:45:19 CDT by Tony Oquendo M.D.
[2025-07-24 17:10] VITALS: O2SAT 98
[2025-07-24 17:11] VITALS: BP 113/76; PULSE 59; RESP 14; TEMP 36.7; O2SAT 97
--- NOTE | 2025-07-24 18:19 | ED.GENADULT ---
HPI - General Adult General Chief complaint: Shortness of Breath/Dyspnea <Chris Booker MD - Last Filed: 07/24/25 18:21> Stated complaint: blood clot to left calf. Vomiting. SOB <Chris Booker MD - Last Filed: 07/24/25 18:21> Time Seen by Provider: 07/24/25 18:03 <Chris Booker MD - Last Filed: 07/24/25 18:21> History of Present Illness HPI narrative: Patient 54-year-old female who presents emergency department with chief complaint of shortness of breath abdominal pain nausea patient reports that these have been ongoing for the last several days and reports that recently she was diagnosed with a new DVT and was told to increase her dose of her blood thinner. Patient states that pain in her abdomen is not improved by anything reports that she is our primary care doctor today who recommended that she come to the emergency department. <Chris Booker MD - Last Filed: 07/24/25 18:21> Related Data Home medications: Home Medications ?Medication ?Instructions ?Recorded ?Confirmed ?Last Taken ?Type sucralfate 1 gram tablet 1 g PO TID PRN Acid Reflux 08/02/21 04/23/25 04/14/24 History ascorbic acid (vitamin C) 1,000 mg 1 g PO DAILY 05/12/22 04/23/25 09/12/24 History tablet (Vitamin C) aspirin 81 mg tablet,delayed 81 mg PO DAILY 05/12/22 04/23/25 09/12/24 History release turmeric 100 mg-benjy 150 1 cap PO DAILY 05/12/22 04/23/25 09/12/24 History mg-olive 50 mg-oreg 150 mg-capryl capsule hydrocortisone acetate 25 mg 25 mg RECTAL DAILY PRN CROHN'S EXAC 07/19/23 04/23/25 04/14/24 History rectal suppository mercaptopurine 50 mg tablet 50 mg PO DAILY 07/19/23 04/23/25 09/12/24 History sumatriptan succinate 50 mg tablet 50 mg PO ONCE PRN MIGRAINES 07/19/23 04/23/25 04/14/24 History (Imitrex) tizanidine 2 mg capsule 2 mg PO TID 07/25/23 04/23/25 09/12/24 History <Chris Booker MD - Last Filed: 07/24/25 18:21> Allergies/adverse reactions: Allergies Allergy/AdvReac Type Severity Reaction Status Date / Time metronidazole (From Flagyl) Allergy Severe GI bleeding Verified 07/24/25 16:52 Sulfa (Sulfonamide Allergy Severe GI Bleeding Verified 07/24/25 16:52 Antibiotics) sulfamethoxazole (From Allergy Unknown Verified 07/24/25 16:52 Bactrim) trimethoprim (From Bactrim) Allergy Unknown Verified 07/24/25 16:52 hydrocodone (From Vicodin) AdvReac Severe Vomiting Verified 07/24/25 16:52 adhesive tape AdvReac Blister Verified 07/24/25 16:52 <Chris Booker MD - Last Filed: 07/24/25 18:21> Review of Systems Review of Systems: A 10 system review of systems was completed on the patient and is negative except for what is stated in the HPI. Nursing and ancillary documentation was reviewed. 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 Portal vein thrombosis Uveitis Arnold-Chiari malformation History of CVA (cerebrovascular accident) x3 Crohn's disease <Chris Booker MD - Last Filed: 07/24/25 18:21> Surgical History Surgical History: Surgical History History of bowel resection H/O surgical amputation of finger History of ear surgery History of appendectomy 05/2019 H/O sinus surgery H/O shoulder surgery <Chris Booker MD - Last Filed: 07/24/25 18:21> Family History Family History: Family History Other , Age 66 Heart attack Other Antiphospholipid syndrome Other Alzheimer disease <Chris Booker MD - Last Filed: 07/24/25 18:21> Social History Social History: Social History Social History: 09/03/24 very confident with medical forms. 01/16/25 patient declined SDOH Smoking packs per day: 2 Smoking cigarettes per day: 40.0 Years smoked: 20 Smoking pack-years: 40.00 Smoking status: Former smoker Tobacco type: cigarettes Smoking end date: 10/23/15 Additional smoking assessment comments: Quit 2015. 35pk yr history Alcohol intake: former Substance use: former Substance use type: marijuana Other substance usage details: Marijuana tea daily Last use: 09/11 Do You Feel Safe in your Home?: Yes Lack of Transportation: YES Lack of Food: Often True Current Housing: I Have Housing Concerned About Future Housing: YES Difficulty Paying Gas/Electric Bills: YES Difficulty Paying for Meds: YES Currently Unemployed: YES Education: Bachelor's Degree Difficulty w/ Childcare or Family Care: No Living arrangements: with family Occupation/Education: retired Spiritual care concerns: No <Chris Booker MD - Last Filed: 07/24/25 18:21> Exam Narrative: GENERAL: Well-appearing, well-nourished, and in no acute distress. HEAD: Normocephalic, atraumatic. EYES: PERRLA and EOMI. ENT: Nares clear, no rhinorrhea or epistaxis. Mucous membranes moist. NECK: Supple. CHEST: Clear to auscultation. No respiratory distress. HEART: Regular rate and rhythm. No murmur heard. Normal peripheral pulses. ABDOMEN: Soft, nontender, nondistended, normal active bowel sounds. EXTREMITIES: Normal range of motion. No edema. SKIN: Warm, dry, no rash. NEURO: No focal deficits. Alert and oriented x3. PSYCH: Normal mood and affect. <Chris Booker MD - Last Filed: 07/24/25 18:21> Course Vital Signs Vital signs: Vital Signs Temperature 97.5 F L 07/24/25 16:57 Pulse Rate 65 07/24/25 16:57 Respiratory Rate 20 07/24/25 16:57 Blood Pressure 115/58 L 07/24/25 16:57 Pulse Oximetry 98 07/24/25 16:57 Oxygen Delivery Room Air 07/24/25 16:57 Temperature 98.0 F 07/24/25 17:11 Pulse Rate 59 L 07/24/25 17:11 Respiratory Rate 14 07/24/25 17:11 Blood Pressure 113/76 07/24/25 17:11 Pulse Oximetry 97 07/24/25 17:11 Oxygen Delivery Room Air 07/24/25 17:10 <Chris Booker MD - Last Filed: 07/24/25 18:21> Vital Signs Temperature 97.5 F L 07/24/25 16:57 Pulse Rate 65 07/24/25 16:57 Respiratory Rate 20 07/24/25 16:57 Blood Pressure 115/58 L 07/24/25 16:57 Pulse Oximetry 98 07/24/25 16:57 Oxygen Delivery Room Air 07/24/25 16:57 Temperature 98.0 F 07/24/25 17:11 Pulse Rate 59 L 07/24/25 17:11 Respiratory Rate 14 07/24/25 17:11 Blood Pressure 113/76 07/24/25 17:11 Pulse Oximetry 97 07/24/25 17:11 Oxygen Delivery Room Air 07/24/25 17:10 <Mariel Schaefer MD - Last Filed: 07/24/25 21:39> Medical Decision Making MDM Narrative Medical decision making narrative: Olive: Patient was signed out to me pending remainder of the workup. The patient was evaluated by myself in the emergency department. History is obtained from patient who is an independent historian and physical exam was performed. External medical records were reviewed at this time. IV was established and pertinent tests were ordered. Laboratory results obtained revealing no acute process. Urinalysis unremarkable. Imaging studies obtained included CXR and CT angiogram chest abdomen pelvis with IV contrast which was independently interpreted by me revealing: IMPRESSION: 1. Main pulmonary artery web-like defect, most consistent with chronic pulmonary embolism. 2: Mesenteric and peritoneal stranding with nodularity, differential diagnosis includes peritoneal carcinomatosis, (most likely given adnexal mass), infectious peritonitis although less common and inflammatory conditions such as sclerosing mesenteritis. 3: Enhancing right adnexal mass measuring 3.7 cm. Differential diagnosis includes primary ovarian neoplasm, pedunculated subserosal fibroid and metastatic lesion. Consider further evaluation with pelvic MRI with contrast for further characterization of adnexal mass, serum tumor markers and possible gynecologic oncology referral. Patient was informed of these findings at bedside and informed that she will need to follow-up with OBGYN for further workup including an MRI and tumor markers to rule out middle Latanya. She was informed that she will be set up with one of our OBGYN physicians for follow-up. Differential diagnosis considerations include DVT, appendicitis, ovarian cancer, fibroids, ovarian cysts, diverticulitis. Comorbidities impacting this visit include none. I have evaluated and discussed social determinants of health with the patient that could potentially impact subsequent diagnosis and treatment plans. On repeat assessment of the patient, reevaluation revealed that the patient is doing well and is in no acute distress. Patient symptoms have improved since she arrived to our emergency department. Repeat vital signs were all reviewed and noted to be stable. Differential diagnosis and treatment plan were discussed with the patient at bedside. Patient agrees with discussion and after shared medical decision making agrees with discharge. All questions were answered to the patient's satisfaction. Patient will follow up with OBGYN in 3-5 days. Patient was provided with strict return precautions and instructed to return to the emergency department if any new or worsening symptoms develop. The patient was discharged in stable condition. <Mariel Schaefer MD - Last Filed: 07/24/25 21:39> Vital Signs Vital Signs: Vital Signs Temperature 97.5 F L 07/24/25 16:57 Pulse Rate 65 07/24/25 16:57 Respiratory Rate 20 07/24/25 16:57 Blood Pressure 115/58 L 07/24/25 16:57 Pulse Oximetry 98 07/24/25 16:57 Oxygen Delivery Room Air 07/24/25 16:57 Temperature 98.0 F 07/24/25 17:11 Pulse Rate 59 L 07/24/25 17:11 Respiratory Rate 14 07/24/25 17:11 Blood Pressure 113/76 07/24/25 17:11 Pulse Oximetry 97 07/24/25 17:11 Oxygen Delivery Room Air 07/24/25 17:10 <Chris Booker MD - Last Filed: 07/24/25 18:21> Vital Signs Temperature 97.5 F L 07/24/25 16:57 Pulse Rate 65 07/24/25 16:57 Respiratory Rate 20 07/24/25 16:57 Blood Pressure 115/58 L 07/24/25 16:57 Pulse Oximetry 98 07/24/25 16:57 Oxygen Delivery Room Air 07/24/25 16:57 Temperature 98.0 F 07/24/25 17:11 Pulse Rate 59 L 07/24/25 17:11 Respiratory Rate 14 07/24/25 17:11 Blood Pressure 113/76 07/24/25 17:11 Pulse Oximetry 97 07/24/25 17:11 Oxygen Delivery Room Air 07/24/25 17:10 <Mariel Schaefer MD - Last Filed: 07/24/25 21:39> Lab Data Result diagrams: 07/24/25 18:39 07/24/25 18:39 <Chris Booker MD - Last Filed: 07/24/25 18:21> Labs: Lab Results 07/24/25 Range/Units 18:39 WBC 5.1 (4.5-10.0) K/mm3 RBC 3.80 L (4.2-5.4) M/mm3 Hgb 12.8 (12.0-15.0) g/dL Hct 37.6 (37.0-47.0) % MCV 98.9 (80-100) fl MCH 33.7 (26-34) pg MCHC 34.0 (32-36) g/dl RDW 14.3 (11.5-14.5) % Plt Count 216 (150-375) k/mm3 MPV 9.9 (7.4-10.4) fl Immature Gran % (Auto) Not Reportable Neut % (Auto) Not Reportable Lymph % (Auto) Not Reportable [place] % (Auto) Not Reportable Eos % (Auto) Not Reportable Baso % (Auto) Not Reportable Lymph # (Auto) Not Reportable [place] # (Auto) Not Reportable Eos # (Auto) Not Reportable Baso # (Auto) Not Reportable Abs Immat Gran (auto) Not Reportable Absolute Neuts (auto) Not Reportable Absolute Nucleated RBC Not Reportable Total Counted 100 Neutrophils % (Manual) 52 (46-73) % Band Neutrophils % 0 (0-6) % Lymphocytes % (Manual) 41.0 (18-44) % Monocytes % (Manual) 5 (3-9) % Eosinophils % (Manual) 2 (0-4) % Nucleated RBC % Not Reportable Abs Neuts (Manual) 2.65 (1.3-6.7) K/mm3 Abs Lymphs (Manual) 2.09 (1.1-4.5) K/mm3 Abs Monocytes (Manual) 0.25 (0.1-0.90) K/mm3 Absolute Eos (Manual) 0.10 (0.02-0.50) K/mm3 Atypical Lymphocytes Present Platelet Estimate Adequate (Adequate) Anisocytosis 1+ Schistocytes None seen PT 16.2 H (11.1-14.7) Seconds INR 1.3 APTT 42.2 H (22.3-36.8) Seconds Sodium 135 L (137-145) mmol/L Potassium 3.9 (3.4-5.0) mmol/L Chloride 106 (98-107) mmol/L Carbon Dioxide 25 (22-30) mmol/L Anion Gap 4 (4-12) mmol/L BUN 7 (7-17) mg/dL Creatinine 0.75 (0.7-1.0) mg/dL Estim Creat Clear Calc 77 ml/min Estimated GFR > 60 (59 - ) Glucose 89 (65-110) mg/dL Calcium 8.9 (8.4-10.2) mg/dL Total Bilirubin 0.3 (0.2-1.3) mg/dL AST 22 (14-36) U/L ALT 13 (6-35) U/L Alkaline Phosphatase 76 (38-126) U/L Troponin I < 0.012 (0.000-0.034) ng/mL NT-Pro-B Natriuret Pep 356 H (19.9-100) pg/mL Total Protein 6.4 (6.3-8.2) g/dL Albumin 3.6 (3.5-5.1) g/dL Lipase 36 (23-300) U/L Urine Color Yellow (Yellow) Urine Appearance Clear (Clear) Urine pH 6.5 (5.0-9.0) Ur Specific [place] 1.011 (1.001-1.035) Urine Protein Negative (Negative) mg/dL Urine Glucose (UA) Negative (Negative) mg/dL Urine Ketones Negative (Negative) mg/dL Ur Blood (Man) Negative (Negative) Urine Nitrate Negative (Negative) Urine Bilirubin Negative (Negative) Urine Urobilinogen 0.2 (<2.0) mg/dL Leukocyte Esterase Rfl Negative (Negative) TRUE/UL Urine RBC 0-2 (0-2) /hpf Urine WBC 0-5 (0-3) /hpf Ur Squamous Epith Cells None seen (Few) /hpf Urine Bacteria None seen /hpf Urine Casts 0-2 <Chris Booker MD - Last Filed: 07/24/25 18:21> Lab Results 07/24/25 Range/Units 18:39 WBC 5.1 (4.5-10.0) K/mm3 RBC 3.80 L (4.2-5.4) M/mm3 Hgb 12.8 (12.0-15.0) g/dL Hct 37.6 (37.0-47.0) % MCV 98.9 (80-100) fl MCH 33.7 (26-34) pg MCHC 34.0 (32-36) g/dl RDW 14.3 (11.5-14.5) % Plt Count 216 (150-375) k/mm3 MPV 9.9 (7.4-10.4) fl Immature Gran % (Auto) Not Reportable Neut % (Auto) Not Reportable Lymph % (Auto) Not Reportable [place] % (Auto) Not Reportable Eos % (Auto) Not Reportable Baso % (Auto) Not Reportable Lymph # (Auto) Not Reportable [place] # (Auto) Not Reportable Eos # (Auto) Not Reportable Baso # (Auto) Not Reportable Abs Immat Gran (auto) Not Reportable Absolute Neuts (auto) Not Reportable Absolute Nucleated RBC Not Reportable Total Counted 100 Neutrophils % (Manual) 52 (46-73) % Band Neutrophils % 0 (0-6) % Lymphocytes % (Manual) 41.0 (18-44) % Monocytes % (Manual) 5 (3-9) % Eosinophils % (Manual) 2 (0-4) % Nucleated RBC % Not Reportable Abs Neuts (Manual) 2.65 (1.3-6.7) K/mm3 Abs Lymphs (Manual) 2.09 (1.1-4.5) K/mm3 Abs Monocytes (Manual) 0.25 (0.1-0.90) K/mm3 Absolute Eos (Manual) 0.10 (0.02-0.50) K/mm3 Atypical Lymphocytes Present Platelet Estimate Adequate (Adequate) Anisocytosis 1+ Schistocytes None seen PT 16.2 H (11.1-14.7) Seconds INR 1.3 APTT 42.2 H (22.3-36.8) Seconds Sodium 135 L (137-145) mmol/L Potassium 3.9 (3.4-5.0) mmol/L Chloride 106 (98-107) mmol/L Carbon Dioxide 25 (22-30) mmol/L Anion Gap 4 (4-12) mmol/L BUN 7 (7-17) mg/dL Creatinine 0.75 (0.7-1.0) mg/dL Estim Creat Clear Calc 77 ml/min Estimated GFR > 60 (59 - ) Glucose 89 (65-110) mg/dL Calcium 8.9 (8.4-10.2) mg/dL Total Bilirubin 0.3 (0.2-1.3) mg/dL AST 22 (14-36) U/L ALT 13 (6-35) U/L Alkaline Phosphatase 76 (38-126) U/L Troponin I < 0.012 (0.000-0.034) ng/mL NT-Pro-B Natriuret Pep 356 H (19.9-100) pg/mL Total Protein 6.4 (6.3-8.2) g/dL Albumin 3.6 (3.5-5.1) g/dL Lipase 36 (23-300) U/L Urine Color Yellow (Yellow) Urine Appearance Clear (Clear) Urine pH 6.5 (5.0-9.0) Ur Specific [place] 1.011 (1.001-1.035) Urine Protein Negative (Negative) mg/dL Urine Glucose (UA) Negative (Negative) mg/dL Urine Ketones Negative (Negative) mg/dL Ur Blood (Man) Negative (Negative) Urine Nitrate Negative (Negative) Urine Bilirubin Negative (Negative) Urine Urobilinogen 0.2 (<2.0) mg/dL Leukocyte Esterase Rfl Negative (Negative) TRUE/UL Urine RBC 0-2 (0-2) /hpf Urine WBC 0-5 (0-3) /hpf Ur Squamous Epith Cells None seen (Few) /hpf Urine Bacteria None seen /hpf Urine Casts 0-2 <Mariel Schaefer MD - Last Filed: 07/24/25 21:39> Discharge Plan Discharge Clinical Impression: Acute right lower quadrant pain, Mass of right ovary <Chris Booker MD - Last Filed: 07/24/25 18:21> Patient Disposition: Home <Chris Booker MD - Last Filed: 07/24/25 18:21> Condition: Improved <Chris Booker MD - Last Filed: 07/24/25 18:21> Instructions: Antibiotic Form, Abdominal Pain (ED) <Chris Booker MD - Last Filed: 07/24/25 18:21> Additional Instructions: Please follow-up with OBGYN you were provided with today, call on Sunday to set up a follow-up appointment to be seen within the next 3-[address] abdomen pelvis did reveal a right adnexal mass measuring 3.7 cm. You will need to follow-up with OB for further workup including an MRI and tumor markers to rule out any malignancy/cancer. Return to the ED if any new or worsening symptoms develop. <Chris Booker MD - Last Filed: 07/24/25 18:21> Patient Language: Slovak <Chris Booker MD - Last Filed: 07/24/25 18:21> Prescriptions: No Action ondansetron 4 mg tablet,disintegrating 4 mg PO Q4H 0 Days Qty: 10 0RF Rx Instructions: 1st dose 1-2 hr before radiation amoxicillin 500 mg tablet 1,000 mg PO Q12H 7 Days Qty: 28 0RF meclizine 25 mg tablet 25 mg PO TID PRN (Reason: dizziness) Qty: 20 0RF tizanidine 2 mg capsule 2 mg PO TID mupirocin [Centany] 2 % ointment 1 applic topical QID Qty: 44 3RF Rx Instructions: Melt 2 in in each irrigation bottle irrigate 4 times per day sucralfate 1 gram tablet 1 g PO TID PRN (Reason: Acid Reflux) ascorbic acid (vitamin C) [Vitamin C] 1,000 mg Tablet 1 g PO DAILY aspirin 81 mg Tablet,Delayed Release (Dr/Ec) 81 mg PO DAILY trtzkcpn-kipw-frcnz-oreg-capry 100 mg-150 mg- 50 mg-150 mg Capsule 1 cap PO DAILY mercaptopurine 50 mg tablet 50 mg PO DAILY sumatriptan succinate [Imitrex] 50 mg Tablet 50 mg PO ONCE PRN (Reason: MIGRAINES) hydrocortisone acetate 25 mg suppository 25 mg RECTAL DAILY PRN (Reason: CROHN'S EXAC) Saccharomyces boulardii [Florastor] 250 mg Capsule 250 mg PO TID Qty: 30 0RF linezolid 600 mg Tablet 600 mg PO Q12HR Qty: 18 0RF Humira Pen 40 mg/0.8 mL pen injector kit See Rx Instructions subcut .Every other Week Qty: 2 10RF Rx Instructions: inject one - 40 mg/0.8 mL pen every other week subcut . pantoprazole 40 mg tablet,delayed release (DR/EC) 40 mg PO QAM Qty: 90 0RF cholecalciferol (vitamin D3) 1,250 mcg (50,000 unit) capsule See Rx Instructions .ROUTE .COMPLEX Qty: 12 5RF Dose Instruction: TAKE ONE CAPSULE BY MOUTH WEEKLY ON SUNDAY Rx Instructions: TAKE ONE CAPSULE BY MOUTH WEEKLY ON SUNDAY albuterol sulfate 2.5 mg /3 mL (0.083 %) solution for nebulization 2.5 mg inhalation Q4-6H PRN (Reason: shortness of breath or wheezing) Qty: 90 0RF albuterol sulfate 90 mcg/actuation HFA aerosol inhaler 2 inh inhalation Q4H PRN (Reason: shortness of breath or wheezing) Qty: 6.7 3RF paroxetine HCl [Paxil] 40 mg tablet 40 mg PO HS Qty: 90 1RF ropinirole 1 mg tablet 1 mg PO DAILY Qty: 30 3RF eszopiclone 3 mg tablet 3 mg PO QHS Qty: 90 0RF oxycodone-acetaminophen 10-325 mg tablet 1 tablet PO Q8H PRN (Reason: pain) Qty: 90 0RF alprazolam 0.5 mg tablet 0.5 mg PO BID Qty: 60 0RF Eliquis 5 mg tablet 5 mg PO BID Qty: 60 3RF <Chris Booker MD - Last Filed: 07/24/25 18:21> Follow-up/Referrals: Graham Kyle MD [Physician, TAX CONSULTANT] - 3 Days Kassandra Hooks APRN [Primary Care Provider, Family Practice] <Chris Booker MD - Last Filed: 07/24/25 18:21> Time of Disposition: 21:35 <Chris Booker MD - Last Filed: 07/24/25 18:21> 21:35 <Mariel Schaefer MD - Last Filed: 07/24/25 21:39>
--- OUTSIDE RECORDS SUMMARY | 2025-07-24 18:45 | XMS_ITS | Clinical Summary ---
Author Organization 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
--- OUTSIDE RECORDS SUMMARY | 2025-07-24 18:45 | XMS_ITS | Encounter Summary ---
Author Organization [facility] Address [address] [place] [address] Phone Care Team Providers Care Hot Molder Name Role Phone Jesus Gonzalez DO Primary Care Provider Odilon Vyas MD Primary Care Provider [phone] Lucho Peralta MD Unavailable Xiomara Carlos MD Primary Care Provider [phone] Odilon Vyas MD Primary Care Provider + [phone] Unknown, Notinfile Primary Care Provider Unavail able Kassandra Hooks NP Primary Care Provider + Encounter Details Date Type Department Care Team (Latest Contact Info) Description 08/02/2015 Orders Only [facility] Chasity Borjas, CARMINA [address] [facility] [address] [place], [place] [id number] Social History Tobacco Use Types Packs/Day Years Used Date Smoking Tobacco: Never Assessed Comments Unknown Sex and Gender Information Value Date Recorded Sex Assigned at Not on file 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 Gender Identity Female 06/12/2023 3:27 PM [...] on filedocumented in this encounter Care Teams Hot Molder Relationship Specialty Start Date End Date Jesus Gonzalez DO [address] [place] [address] PCP - General Family Medicine 10/26/21 02/07/23 Odilon Vyas MD [address] [place] [id number] PCP - General Family Medicine 02/08/23 02/07/24 Xiomara Carlos MD [address] [place] [id number] PCP - General Psychiatry 02/08/24 03/23/24 Odilon Vyas MD [address] [place] [address] PCP - General Family Medicine 03/24/24 08/12/24 Unknown, Notinfile PCP - General 08/13/24 08/26/24 Kassandra Hooks NP PCP - General Nurse Practitioner 08/27/24 Lucho Peralta MD [address] [place] [address] Referring Physician Otolaryngology 12/07/23 documented as of this encounter
--- OUTSIDE RECORDS SUMMARY | 2025-07-24 18:45 | XMS_ITS | Encounter Summary ---
Author Organization [facility] Address [address] [place] [address] Phone Care Team Providers Care Mid Level Practitioner Name Role Phone Lucho Peralta MD Unavailable Odilon Vyas MD Primary Care Provider [phone] Unknown, Notinfile Primary Care Provider Unavail able Kassandra Hooks NP Primary Care Provider + Encounter Details Date Type Department Care Team (Late st Contact Info) Description 06/24/2024 Orders Only Health system Medicine Gastroenterology [address] [facility] [address] [place] [address] Irma Dillon MD [address] [place] [address] Social History Tobacco Use Types [...] on file 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
--- OUTSIDE RECORDS SUMMARY | 2025-07-24 18:45 | XMS_ITS | Encounter Summary ---
Author Organization [facility] Address [address] [place] [address] Phone Care Team Providers Care Patient Services Coordinator Name Role Phone Jesus Gonzalez DO Primary Care Provider Odilon Vyas MD Primary Care Provider + -[phone] Lucho Peralta MD Unavailable Xiomara Carlos MD Primary Care Provider [phone] Odilon Vyas MD Primary Care Provider + [phone] Unknown, Notinfile Primary Care Provider Unavail able Kassandra Hooks NP Primary Care Provider + Encounter Details Date Type Department Care Team (Latest Contact Info) Description 05/10/[address] 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 Gender Identity Female 06/12/2023 3:27 PM [...] on filedocumented in this encounter Care Teams Patient Services Coordinator Relationship Specialty Start Date End Date Jesus Gonzalez DO [address] [place] [address] PCP - General Family Medicine 10/26/21 02/07/23 Odilon Vyas MD [address] [place] [address] PCP - General Family Medicine 02/08/23 02/07/24 Xiomara Carlos MD [address] [place] [address] PCP - General Psychiatry 02/08/24 03/23/24 Odilon Vyas MD [address] [place] [address] PCP - General Family Medicine 03/24/24 08/12/24 Unknown, Notinfile PCP - General 08/13/24 08/26/24 Kassandra Hooks NP PCP - General Nurse Practitioner 08/27/24 Lucho Peralta MD [address] [place] [address] Referring Physician Otolaryngology 12/07/23 documented as of this encounter
--- OUTSIDE RECORDS SUMMARY | 2025-07-24 18:45 | XMS_ITS | Encounter Summary ---
Author Organization [facility] Address [address] [place] [address] Phone Care Team Providers Care Marketing Communications Leader Name Role Phone Jesus Gonzalez DO Primary Care Provider Odilon yVas MD Primary Care Provider + [phone] Lucho Peralta MD Unavailable Xiomara Carlos MD Primary Care Provider [phone] Odilon Vyas MD Primary Care Provider + [phone] Unknown, Notinfile Primary Care Provider Unavail able Kassandra Hooks NP Primary Care Provider + Encounter Details Date Type Department Care Team (Latest Contact Info) Description 08/16/2015 Orders Only [facility] CARDIOLOGY Chasity Borjas, CARMINA [address] [facility] [address] [place], [place] [id number] Social History Tobacco Use Types Packs/Day Years Used Date Smoking Tobacco: Never Assessed Comments Unknown Sex and Gender Information Value Date Recorded Sex Assigned at Not on file 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 Gender Identity Female 06/12/2023 3:27 [...] filedocumented in this encounter Care Teams Marketing Communications Leader Relationship Specialty Start Date End Date Jesus Gonzalez DO [address] [place] [address] PCP - General Family Medicine 10/26/21 02/07/23 Odilon Vyas MD [address] [place] [address] PCP - General Family Medicine 02/08/23 02/07/24 Xiomara Carlos MD [address] [place] [address] PCP - General Psychiatry 02/08/24 03/23/24 Odilon Vyas MD [address] [place] [address] PCP - General Family Medicine 03/24/24 08/12/24 Unknown, Notinfile PCP - General 08/13/24 08/26/24 Kassandra Hooks NP PCP - General Nurse Practitioner 08/27/24 Lucho Peralta MD [address] [place] [address] Referring Physician Otolaryngology 12/07/23 documented as of this encounter
--- OUTSIDE RECORDS SUMMARY | 2025-07-24 18:45 | XMS_ITS | Encounter Summary ---
Author Organization [facility] Address [address] [place] [address] Phone Care Team Providers Care Upholstery Tech Name Role Phone Jesus Gonzalez DO Primary Care Provider Odilon Vyas MD Primary Care Provider + [phone] Lucho Peralta MD Unavailable Xiomara Carlos MD Primary Care Provider [phone] Odilon Vyas MD Primary Care Provider + [phone] Unknown, Notinfile Primary Care Provider Unavail able Kassandra Hooks NP Primary Care Provider + Encounter Details Date Type Department Care Team (Latest Contact Info) Description 08/21/2015 Orders Only [facility] CARDIOLOGY Chasity Borjas, CARMINA [address] [facility] [address] [place], [place] [id number] Social History Tobacco Use Types Packs/Day Years Used Date Smoking Tobacco: Never Assessed Comments Unknown Sex and Gender Information Value Date Recorded Sex Assigned at Not on file 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 Gender Identity Female 06/12/2023 3:27 PM CDT [...] on filedocumented in this encounter Care Teams Upholstery Tech Relationship Specialty Start Date End Date Jesus Gonzalez DO [address] [place] [address] PCP - General Family Medicine 10/26/21 02/07/23 Odilon Vyas MD [address] [place] [address] PCP - General Family Medicine 02/08/23 02/07/24 Xiomara Carlos MD [address] [place] [address] PCP - General Psychiatry 02/08/24 03/23/24 Odilon Vyas MD [address] [place] [address] PCP - General Family Medicine 03/24/24 08/12/24 Unknown, Notinfile PCP - General 08/13/24 08/26/24 Kassandra Hooks NP PCP - General Nurse Practitioner 08/27/24 Lucho Peralta MD [address] [place] [address] Referring Physician Otolaryngology 12/07/23 documented as of this encounter
--- OUTSIDE RECORDS SUMMARY | 2025-07-24 18:45 | XMS_ITS | Encounter Summary ---
Author Organization [facility] Address [address] [place] [address] Care Team Providers Care Voice Coach Name Role Phone Odilon Vyas MD Primary Care Provider [phone] Lucho Peralta MD Unavailable Xiomara Carlos MD Primary Care Provider [phone] Odilon Vyas MD Primary Care Provider +[phone] Unknown, Notinfile Primary Care Provider Unavail able Kassandra Hooks NP Primary Care Provider + Encounter Details Date Type Department Care Team (Late st Contact Info) Description 01/18/2024 Telephone [facility] Management [facility] at [facility] [address] [address], [address] [place] [address] Massimo Glynn MD [address] [address] Social History Tobacco Use Types Packs/Day Years [...] on file 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 Gender Identity Female 06/12/2023 3:27 PM [...] on filedocumented in this encounter Care Teams Voice Coach Relationship Specialty Start Date End Date Odilon Vyas MD [address] [place] [address] PCP - General Family Medicine 02/08/23 02/07/24 Xiomara Carlos MD [address] [place] [address] PCP - General Psychiatry 02/08/24 03/23/24 Odilon Vyas MD [address] [place] [address] PCP - General Family Medicine 03/24/24 08/12/24 Unknown, Notinfile PCP - General 08/13/24 08/26/24 Kassandra Hooks NP PCP - General Nurse Practitioner 08/27/24 Lucho Peralta MD [address] [place] [address] Referring Physician Otolaryngology 12/07/23 documented as of this encounter
--- OUTSIDE RECORDS SUMMARY | 2025-07-24 18:45 | XMS_ITS | Encounter Summary ---
Author Organization [facility] Address [address] [place] [address] Phone Care Team Providers Care Toolroom Attendant Name Role Phone Jesus Gonzalez DO Primary Care Provider Odilon Vyas MD Primary Care Provider + [phone] Lucho Peralta MD Unavailable Xiomara Carlos MD Primary Care Provider [phone] Odilon Vyas MD Primary Care Provider + [phone] Unknown, Notinfile Primary Care Provider Unavail able Kassandra Hooks NP Primary Care Provider + Encounter Details Date Type Department Care Team (Latest Contact Info) Description 08/24/2015 Orders Only [facility] CARDIOLOGY Chasity Borjas, CARMINA [address] [facility] [address] [place], [place] [id number] Social History Tobacco Use Types Packs/Day Years Used Date Smoking Tobacco: Never Assessed Comments Unknown Sex and Gender Information Value Date Recorded Sex Assigned at Not on file 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 Gender Identity Female 06/12/2023 3:27 PM CDT [...] on filedocumented in this encounter Care Teams Toolroom Attendant Relationship Specialty Start Date End Date Jesus Gonzalez DO [address] [place] [address] PCP - General Family Medicine 10/26/21 02/07/23 Odilon Vyas MD [address] [place] [address] PCP - General Family Medicine 02/08/23 02/07/24 Xiomara Carlos MD [address] [place] [address] PCP - General Psychiatry 02/08/24 03/23/24 Odilon Vyas MD [address] [place] [address] PCP - General Family Medicine 03/24/24 08/12/24 Unknown, Notinfile PCP - General 08/13/24 08/26/24 Kassandra Hooks NP PCP - General Nurse Practitioner 08/27/24 Lucho Peralta MD [address] [place] [address] Referring Physician Otolaryngology 12/07/23 documented as of this encounter
--- OUTSIDE RECORDS SUMMARY | 2025-07-24 18:45 | XMS_ITS | Encounter Summary ---
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 because her left calf felt on fire and it was huge compared to her right calf. Patient stated they did a doppler and found a bunch of clots in there. Patient stated she had to leave the hospital because her house carpenter needed to go home. She then proceeded to go to [facility] ED and stated they said they didn't have any clot management doctors. Patient was advised by [facility] to double up on her clot [...] as we cannot see any imaging from [place] and shestated she has a follow up appointment with Kassandra Hooks (YOUTH ACCOMMODATION SUPPORT WORKER from [facility]) today at 11AM but she would ditch that. I advised for her to keep this appointment and to call our office afterwardsas we would recommend she get a doppler today to determine if there are new clots in her calf. Patient stated she would probably go to [place] ED after the appointment but will call [...] on filedocumented in this encounter Care Teams Administrative Law Judge Relationship Specialty Start Date End Date Kassandra Hooks NP PCP - General Nurse Practitioner 08/27/24 Lucho Peralta MD Referring Physician Otolaryngology 12/07/23 documented as of this encounter
--- OUTSIDE RECORDS SUMMARY | 2025-07-24 18:45 | XMS_ITS | Clinical Summary ---
Author Organization [facility] Address [address] [place] [address] Care Team Providers Care Guest Services Officer Name Role Phone Lucho Peralta MD Unavailable Kassandra Hooks NP Primary Care Provider + Allergies Active Allergy Reactions Criticality Noted Date Comments Amoxicillin-Pot Clavulanate Other (See comments) Low 02/06/2023 Makes Crohn's flare up Sulfamethoxazole-Trime thoprim Other (See comments) Low 02/06/2023 Makes Crohn's flare up Hydrocodone-Acetaminop hen Nausea And Vomiting Medium 05/29/2016 [place] Latex Itching High 08/10/2016 Silver Blisters,Other (See [...] 40 mg tabletIndications: Generalized Anxiety Disorder,Started in [place] r/t anxiety and nerves/ chronic pain Take 1 tablet (40 mg total) by mouth nightly 023 Active cyanocobalamin (Vitamin B-12) 1,000 mcg sublingual tabletIndications: Prevention of Vitamin B12 Deficiency Take 1 tablet (1,000 mcg total) by mouth cub reporter before breakfast No particular days Active turmeric [...] Humira Pen 40 mg/0.8 mL pen injector kitIndications:Pastoral Worker hn's Disease Inject 0.8 mL (40 mg [...] 11/13/2023 Assessment & Plan (11/13/2023 4:00 PM SEATING CAPTAIN): PO2W cataract extraction (CE)/posterior chamber intraocular lens [...] (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 - We will have MRE from [facility] read by our radiologists. Assessment & Plan (02/06/2023 12:22 PM CDT): MRE on 12/08/22 showed cystic lesions of the pancreas measuring up to 6mm. The patient only had an image of the impression of this report, and we do not have access to the report or study itself. - Patient has given authorization to release MRE report from [facility]. We will also obtain the images and [...] her abdominal pain on recent MRE at [facility]. We will obtain this study and have [...] valve Surgeries: ileocolic resection in 2019 at [facility] - 6 inches of small bowel [...] traverse the IC valve, prompting ileocolic resection ([facility]) - 6 [address]cted. Path incidentally [...] traverse the IC valve, prompting ileocolic resection ([facility]) - 6 inches resected. Path incidentally [...] traverse the IC valve, prompting ileocolic resection ([facility]) - 6 inches resected. Path incidentally [...] dose. Assessment & Plan (10/23/2022 11:27 AM SEATING CAPTAIN): Diagnosis in 2014. Humira since Mar, 2016. [...] by patient yet. -recent blood work from [facility] reviewed. Noted to have urinalysis, CBC, [...] continue. Assessment & Plan (09/25/2022 10:44 AM SEATING CAPTAIN): Diagnosis in 2014. Humira since Mar, 2016. [...] -Talked to her GI group at [facility] Dr Torres on-call, suggested if pt is stable to d/c to be admitted to [facility] work her up further. Talking to [...] Type Department Care Team Description 07/24/2025 Telephone [facility] Hematology [address] [facility] Floor [address] [place] [address] Daphney Nance RN 07/10/2025 Telephone [facility] Pain Center at the [address] [place] [address] Melvin Oneill DO Scheduling Appointments 07/08/2025 Documentation [facility] Gastroenterology [address] [place] [address] [place] [address] Koki Garcia LPN Switch from Linzess to Trulance 06/30/2025 9:30 AM CDT Office Visit [facility] Dermatology [address] [facility] [address] [place] [address] Caty Butterfield MD PhD Prurigo nodularis (Primary Dx); Scar; History of Crohn's disease 06/29/2025 Documentation [facility] Gastroenterology [address] [facility] [address] [place] [address] Montrell Kern MD 06/26/2025 Telephone [facility]astroenterology [address] [place] [address] [place] [address] [place] [address] Daiana Rodríguez RMA 06/25/2025 4:00 PM CDT Office Visit [facility]astro[facility] [address] [place] [address] [place] [address] [place] [address] Corazon Becerra, EDWIGE Crohn's disease of both small and large intestine with other complication (Primary Dx); High risk medications (not anticoagulants) long-term use; Factor V deficiency (HCC); Malignant neoplasm of appendix (HCC); Chiari malformation type I (HCC) 06/23/2025 Telephone [facility]astroenter[facility] [address] [facility] 12th [place] [address] [place] [address] Daiana Rodríguez RMA rash 05/19/2025 Telephone [facility] [address] [facility] 12th [place] [address] [place] [address] Daiana Rodríguez RMA 05/14/2025 4:00 PM CDT Office Visit [facility]) - [facility] ENT [address] [facility] 11th [place] [address] [place] [address] Josh Hummel MD Chronic pansinusitis (Primary Dx); Chronic sinusitis, unspecified location; Recurrent epistaxis from Last 3 Months Surgical History Surgery Date Site/Laterality Comments COLONOSCOPY 05/11/2020 [place] SINUS SURGERY 09/28/2016 Successful embolization of left [...] Karin Thyroid disease Mother's Sister 2 Xochitl [place]me[place] Bladder Cancer Paternal Grandfather Cameron Sr. [...] on file Legal Sex Female 10:13 AM SEATING CAPTAIN Gender Identity Female 06/12/2023 3:27 PM CDT [...] as needed Medical Devices Implanted Type Area Director Of Digital Technology Device Identifier Shelf Expiration Date Model / Serial / Lot [employer] Lens Iol Cna0t0.230 Clareon Uva Autonom Cna0t0.230 - [id number] - [id number] Implanted:Qty: 1 on 10/29/2023 by Melvin San MD at [facility] Left: Eye [employer] [id number] 06/25/2026 CNA0T0.23 0 / [id number] / Procedures Procedure Name Priority Date/Time Associated Diagnosis Comments COLONOSCOPY 02/11/2025 9:[address] LUNG CANCER SCREENING Schedule Routine, Read Routine (OP Routine) 10/13/2024 4:36 PM SEATING CAPTAIN Nicotine dependence, cigarettes, in remission from Last [...] Female Attending MD: Montrell Kern M.D. Room: [facility] ENDOSCOPY ROOM 05 Note Status: Finalized [...] The scope was passed under direct vision.The [id number] was introduced through the anusand advanced to [...] histology. There was evidence of a prior jrku-fd-jsmz ileo-colonic anastomosisin the ascending colon. This was [...] to quiescent Crohn's disease. Biopsied. - Patent jplf-[id number]-wcmd ileo-colonic anastomosis, characterized by healthy appearing mucosa.Biopsied. [...] During normal business hours - [facility]: [phone]. After hours, evening, nights, weekends and holidays- Please call the hospital sealing and canceling machine operator at and ask for the GI fellow almond blancher. Attending Participation: I personally performed the entire procedure. Electronically signed by Montrell Kern MD Montrell Kern M.D. 02/11/2025 10:11:17 AM Number of Addenda: 0 Note Initiated On: 02/11/2025 9:16 AM us Montrell Kern MD ENDOSCOPY PROCEDURES Final Resul t * CT Lung Cancer Screening (10/13/2024 4:36 PM SEATING CAPTAIN) Anatomical Region Laterality Modality Chest N/A Computed Tomogra phy 10/17/2024 8:06 AM SEATING CAPTAIN Narrative 10/17/2024 8:07 AM SEATING CAPTAIN EXAM DESCRIPTION: CT LUNG CANCER SCREENING REASON [...] by David Ortiz M.D. SN: Report ID: [id number] Reading Location: [id number] Procedure Note David Ortiz MD - 10/17/2024 [...] David Ortiz M.D. SN: SN Report ID: [id number] Reading Location: [place] [address] Zia Hearn DO IMG CT PROCEDURES Final R esult from Last 3 Months or Most Recently Relevant to Health Maintenance [place] For more information, please contact: [phone] * Full Code (Latest Code Status on File) Date Activated Date Inactivated Comments 02/11/2025 8:23 AM 02/11/2025 2:57 PM * Full Code Date Activated Date Inactivated Comments 03/14/2023 9:25 AM 03/14/2023 4:21 PM Care Teams Guest Services Officer Relationship Specialty Start Date End Date Kassandra Hooks NP PCP - General Nurse Practitioner 08/27/24 Lucho Peralta MD Referring Physician Otolaryngology 12/07/23
--- OUTSIDE RECORDS SUMMARY | 2025-07-24 18:45 | XMS_ITS | Encounter Summary ---
Author Organization [facility] Healthcare Address [address] [place] [address] Care Team Providers Care Financial Controller Name Role Phone Odilon Vyas MD Primary Care Provider [phone] Lucho Peralta MD Unavailable Xiomara Carlos MD Primary Care Provider [phone] Odilon Vyas MD Primary Care Provider +[phone] Unknown, Notinfile Primary Care Provider Unavail able Kassandra Hooks NP Primary Care Provider + Encounter Details Date Type Department Care Team (Late st Contact Info) Description 01/21/2024 Telephone Pain Management Center at [facility] [address] [address], [address] [place] [address] Massimo Glynn MD [address] [address] Social History Tobacco Use Types Packs/Day Years [...] on file 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 Gender Identity Female 06/12/2023 3:27 PM [...] on filedocumented in this encounter Care Teams Financial Controller Relationship Specialty Start Date End Date Odilon Vyas MD [address] [place] [address] PCP - General Family Medicine 02/08/23 02/07/24 Xiomara Carlos MD [address] [place] [address] PCP - General Psychiatry 02/08/24 03/23/24 Odilon Vyas MD [address] [place] [address] PCP - General Family Medicine 03/24/24 08/12/24 Unknown, Notinfile PCP - General 08/13/24 08/26/24 Kassandra Hooks NP PCP - General Nurse Practitioner 08/27/24 Lucho Peralta MD [address] [place] [address] Referring Physician Otolaryngology 12/07/23 documented as of this encounter
--- OUTSIDE RECORDS SUMMARY | 2025-07-24 18:45 | XMS_ITS | Encounter Summary ---
Author Organization [facility] Address [address] [place] [address] Phone Care Team Providers Care Supervisor Cured Meats Name Role Phone Jesus Gonzalez DO Primary Care Provider Odilon Vyas MD Primary Care Provider + [phone] Lucho Peralta MD Unavailable Xiomara Carlos MD Primary Care Provider [phone] Odilon Vyas MD Primary Care Provider + [phone] Unknown, Notinfile Primary Care Provider Unavail able Kassandra Hooks NP Primary Care Provider + Encounter Details Date Type Department Care Team (Latest Contact Info) Description 08/17/2015 Orders Only [facility] CARDIOLOGY Chasity Borjas, CARMINA [address] [facility] [address] [place], [place] [id number] Social History Tobacco Use Types Packs/Day Years Used Date Smoking Tobacco: Never Assessed Comments Unknown Sex and Gender Information Value Date Recorded Sex Assigned at Not on file 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 Gender Identity Female 06/12/2023 3:27 PM CDT [...] on filedocumented in this encounter Care Teams Supervisor Cured Meats Relationship Specialty Start Date End Date Jesus Gonzalez DO [address] [place] [address] PCP - General Family Medicine 10/26/21 02/07/23 Odilon Vyas MD [address] [place] [address] PCP - General Family Medicine 02/08/23 02/07/24 Xiomara Carlos MD [address] [place] [address] PCP - General Psychiatry 02/08/24 03/23/24 Odilon Vyas MD [address] [place] [address] PCP - General Family Medicine 03/24/24 08/12/24 Unknown, Notinfile PCP - General 08/13/24 08/26/24 Kassandra Hooks, EDWIGE PCP - General Nurse Practitioner 08/27/24 Lucho Peralta MD [facility] [place] [address] Referring Physician Otolaryngology 12/07/23 documented as of this encounter
--- OUTSIDE RECORDS SUMMARY | 2025-07-24 18:45 | XMS_ITS | Clinical Summary ---
Author Organization [facility] Address [address] [place] [address] Care Team Providers Care Auto Vinyl Top Installer Name Role Phone Joanne Dawkins MD Primary Care Provider [phone] Allergies Active Allergy Reactions Criticality Noted Date Comments Amoxicillin-Pot Clavulanate Other (see comment) Low 02/06/2023 Makes Crohn's flare up Hydrocodone-Acetaminop hen Nausea and Vomiting,Other (see comment) High 05/29/2016 [facility] Late[facility] Itching High 08/10/2016 Lidocaine Itching Low 08/10/2016 Silver Other (see comment) High 07/19/2023 Tegaderm dressing- used with PICC line (custodial is when she had reaction) Sulfa Antibiotics [...] Vaccines (1 of 2) 2021 PHQ-2 (Physician [place]) 11/19/2024 09/12/2024 COVID-19 Vaccine (1 - 2023-2 5 season) 2025 Postponed from 07/20 (Patient Refused) RSV Immunizations Under 20 Months Aged Out No longer eligible based on patient's age to complete this topic Insurance Care Teams Auto Vinyl Top Installer Relationship Specialty [place] [id number] [facility] [address] [place] [id number] PCP - General INTERNAL MEDICINE 09/09/24
--- OUTSIDE RECORDS SUMMARY | 2025-07-24 18:45 | XMS_ITS ---
Author Organization [facility] Address [address] [place] [address] Care Team Providers Care Recruiting Intern Name Role Phone Lucho Peralta MD Unavailable [...] 11/13/2023 Assessment & Plan (11/13/2023 4:00 PM TIN POURER): PO2W cataract extraction (CE)/posterior chamber intraocular lens [...] (PSC) cataracts both eyes (OU) secondary to long term care administrator prednisone usage +1D otc readers for distance [...] referral. - We will have MRE from [facility] read by our radiologists. Assessment & Plan (02/06/2023 12:22 PM CDT): MRE on 12/08/22 showed cystic lesions of the pancreas measuring up to 6mm. The patient only had an image of the impression of this report, and we do not have access to the report or study itself. - Patient has given authorization to release MRE report from [facility]. We will also obtain the [...] her abdominal pain on recent MRE at [facility]. We will obtain this study [...] dose. Assessment & Plan (10/23/2022 11:27 AM TIN POURER): Diagnosis in 2014. Humira since Mar, 2016. [...] by patient yet. -recent blood work from [facility] reviewed. Noted to have urinalysis, CBC, CMP, [...] continue. Assessment & Plan (09/25/2022 10:44 AM TIN POURER): Diagnosis in 2014. Humira since Mar, 2016. [...] today -Talked to her GI group at [facility] Dr Torres on-call, suggested if pt is stable to d/c to be admitted to [facility] work her up further. Talking to [...]
[2025-07-24 18:48] LABS: Hematocrit 37.6 % (37.0-47.0); Hemoglobin 12.8 g/dL (12.0-15.0); Mean Corpuscular HGB Conc 34.0 g/dl (32-36); Mean Corpuscular Hemoglobin 33.7 pg (26-34); Mean Corpuscular Volume 98.9 fl (80-100); Platelet Count Result 216 k/mm3 (150-375); Red Blood Count 3.80 M/mm3 (4.2-5.4); White Blood Count 5.1 K/mm3 (4.5-10.0)
[2025-07-24 19:03] LABS: Alanine Aminotransferase 13 U/L (6-35); Albumin Level 3.6 g/dL (3.5-5.1); Alkaline Phosphatase 76 U/L (38-126); Anion Gap 4 mmol/L (4-12); Aspartate Amino Transferase 22 U/L (14-36); Bilirubin,Total 0.3 mg/dL (0.2-1.3); Blood Urea Nitrogen 7 mg/dL (7-17); Calcium 8.9 mg/dL (8.4-10.2); Carbon Dioxide 25 mmol/L (22-30); Chloride 106 mmol/L (98-107); Estimated CRCL calculation 77 ml/min; Estimated Glomerular Filt Rate > 60; Glucose 89 mg/dL (65-110); Lipase 36 U/L (23-300); Potassium 3.9 mmol/L (3.4-5.0); Sodium 135 mmol/L (137-145); Total Protein 6.4 g/dL (6.3-8.2)
[2025-07-24 19:04] LABS: INR 1.3; Prothrombin Time 16.2 Seconds (11.1-14.7)
[2025-07-24 19:06] LABS: Glucose Urine UA Negative (Negative); Leukocyte Esterase Ur Negative LEU/UL (Negative); Nitrate Urine Negative (Negative); Non Pathogenic Casts 0-2; Partial Thromboplastin Time 42.2 Seconds (22.3-36.8); Specific Grav Ur 1.011 (1.001-1.035)
[2025-07-24 19:07] LABS: Add Urine Microscopic? NO; Appearance Urine Clear (Clear)
[2025-07-24 19:10] LABS: NT Pro B Type Natriuretic Pept 356 pg/mL (19.9-100); Troponin I < 0.012 ng/mL (0.000-0.034)
[2025-07-24 19:38] LABS: Eosinophils Absolute Manual 0.10 K/mm3 (0.02-0.50); Eosinophils Percent Manual 2 % (0-4); Lymphocytes Absolute Manual 2.09 K/mm3 (1.1-4.5); Lymphocytes Percent Manual 41.0 % (18-44); Monocytes Absolute Manual 0.25 K/mm3 (0.1-0.90); Monocytes Percent Manual 5 % (3-9); Neutrophils Percent Manual 52 % (46-73); Total Cells Counted 100
[2025-07-24 19:39] LABS: Band Neutrophils Percent 0 % (0-6); Neutrophils Absolute Manual 2.65 K/mm3 (1.3-6.7); Schistocytes None Seen
[2025-07-24 19:40] LABS: Anisocytosis 1+
== END 2025-07-24 21:55 | disposition home or self-care (01) ==
PROVIDERS: Emergency Medicine; Emergency Provider Emergency Medicine; PCP Nurse Practitioner Family
DX: R10.31 Right lower quadrant pain (principal); N83.9 Noninflammatory disorder of ovary, fallopian tube and broad ligament, unspecified; I48.91 Unspecified atrial fibrillation; D50.9 Iron deficiency anemia, unspecified; D68.51 Activated protein C resistance; K50.90 Crohn's disease, unspecified, without complications; G25.81 Restless legs syndrome; Z86.73 Personal history of transient ischemic attack (TIA), and cerebral infarction without residual deficits; Z87.891 Personal history of nicotine dependence; Z90.49 Acquired absence of other specified parts of digestive tract; Z89.029 Acquired absence of unspecified finger(s); Z79.01 Long term (current) use of anticoagulants; Z79.899 Other long term (current) drug therapy; Z79.620 Long term (current) use of immunosuppressive biologic; R00.1 Bradycardia, unspecified
CPT/HCPCS: 36415; 71045; 71275; 74177; 80053; 81003; 83690; 83880; 84484; 85025; 85610; 85730; 93005; 99284; Q9967

== ENCOUNTER 2025-07-29 19:45 | Emergency (ER) | payer BC, SELFPAY ==
--- OUTSIDE RECORDS SUMMARY | 2016-01-18 10:45 | XMS_ITS | Continuity of Care Document ---
Author Organization [facility] Address [address] [place] [address] Phone Care Team Providers Care Auto Dealer Name Role Phone Lorrie HUYNH, Meeta Unavailable Unavailable Advance Directives Directive Yes / No Effective Date File Name No Information Encounters Encounter Description Practice Location Reason(s) For Visit Diagnoses Date Provider Providers Copied on Encounter [facility], [facility], [address], [place] tel:[phone] [facility] No Information Lorrie Tim. [address] [place], [place], [address], [place]. tel:[phone] Family History Family Member Type Diagnosis Age At Onset Mother Problem (finding) malignant neoplasm of l kaitlyner Father Problem (finding) hypertension Payers Payer name Insurance type Covered green party ID Authoriza tion(s) [facility] Ppo/EPO BL [id number] Social History Type Description Quantity Date Captured [...]
--- OUTSIDE RECORDS SUMMARY | 2016-10-11 07:00 | XMS_ITS | Continuity of Care Document ---
Author Organization [facility] Address [address] [place] [address] Phone Care Team Providers Care Amusement Park Entertainer Name Role Phone Zahira Isbell MD Unavailable Unavailable Procedures Procedure Date Electrocardiogram report Advance Directives Directive Yes / No Effective Date File Name No Information Encounters Encounter Description Practice Location Reason(s) For Visit Diagnoses Date Provider Providers Copied on Encounter [facility], [address], [place], [place], [id number], [place] tel:[phone] [facility] No Information 6 Sukhi Rodriges. [address] [place] [address], [facility], [place]. tel:[phone] Family History Family Member Type Diagnosis Age At Onset No Information Payers Payer name Insurance type Covered constitution party ID Authoriza tion(s) [facility] PPO BL [id number] Social History Type Description Quantity Date Captured [...]
--- OUTSIDE RECORDS SUMMARY | 2025-07-28 11:00 | XMS_ITS | Encounter Summary ---
Author Organization [facility] Healthcare Address [address] [place] [address] Care Team Providers Care Hand Violin Maker Name Role Phone Lucho Peralta MD Unavailable Kassandra Hooks NP Primary Care Provider + Reason for Referral * Diagnostic Imaging (Routine) - Closed Specialty Diagnoses / Procedures Referred By Fernando bowman Referred To Contact Diagnoses Arthralgia, unspecified joint Procedures XR Spine Thoracic 4 Or More Views Gerry Brown MD [address] [place] [id number] Phone: tel: fax: [facility] Referral ID Status Reason Start Date Expiration Date Visits Re quested Visits Authorized [id number] Closed 04/09/2025 05/09/2026 1 1 * Diagnostic Imaging (Routine) - Closed Specialty Diagnoses / Procedures Referred By Fernando bowman Referred To Contact Diagnoses Arthralgia, unspecified joint Procedures XR Sacroiliac Joints 3 or More Views Gerry Brown MD [address] [place] [address] Phone: tel: fax: [facility] Referral ID Status Reason Start Date Expiration Date Visits Re quested Visits Authorized [id number] Closed 04/09/2025 05/09/2026 1 1 Reason for Visit * Diagnostic Imaging (Routine) - Closed Specialty Diagnoses / Procedures Referred By Feranndo t Referred To Contact Diagnoses Arthralgia, unspecified joint Procedures XR Sacroiliac Joints 3 or More Views Gerry Brown MD [address] [place] [address] Phone: tel: fax: [facility] Referral ID Status Reason Start Date Expiration Date Visits Re quested Visits Authorized [id number] Closed 04/09/2025 05/09/2026 1 1 Encounter Details Date Type Department Care Team (Latest Contact Info) Description 07/28/2025 11:00 AM CDT - 07/28/2025 11:59 PM CDT Hospital Encounter [facility] [address] [place], [place] [id number] Arthralgia, unspecified joint Discharge Disposition: Discharge to home or self care Social History Tobacco Use Types Packs/Day Years [...] on file 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 Gender Identity Female 06/12/2023 3:27 PM CDT Sexual Orientation Lesbian 06/12/2023 3: 27 PM CDT documented as of this encounter Medications at Time of Discharge acetaminophen-aspiri n-caffeine (EXCEDRIN MIGRAINE) 250-250-65 mg per tabletIndications:Mi graine Take 1 tablet by mouth every 6 (six) hours as needed for headaches (Migraine headache) albuterol HFA (PROVENTIL HFA,VENTOLIN HFA,PROAIR HFA) 90 mcg/actuation inhalerIndications:B ronchospasm Prevention,Chronic Obstructive Pulmonary Disease Inhale 1-2 puffs every 4 (four) hours as needed for wheezing or shortness of breath 9 ALPRAZolam (XANAX) 0.5 mg tabletIndications:an xiety Take 0.5 tablets (0.25 mg total) by mouth nightly as needed for anxiety or sleep 2 amoxicillin 500 mg capsule as needed (Prior to dental work.) 5 apixaban (ELIQUIS) 5 mg tabletIndications:at rial fibrillation,Factor 5 leiden Take 1 tablet (5 mg total) by mouth 2 (two) times a day 9 aspirin 81 mg enteric coated tabletIndications:Ce rebral Thromboembolism Prevention,history of 3 strokes, a fib, factor 5 Take 1 tablet (81 mg total) by mouth with lunch calcium citrate-vitamin D3 (CITRACAL WITH D) 315 mg-6.25 mcg (250 unit) per tablet Take 1 tablet by mouth 2 (two) times a day chlorhexidine (PERIDEX) 0.12 % solutionIndications: Mouth Infection Prevention Apply 15 mL to the mouth or throat 2 (two) times a day as needed (Uses right before takes Anat (gets sores in mouth couple days before gets Anat)) ciprofloxacin (CILOXAN) 0.3 % ophthalmic solution 09/26/20 2 3 cyanocobalamin (Vitamin B-12) 1,000 mcg sublingual tabletIndications:Pr evention of Vitamin B12 Deficiency Take 1 tablet (1,000 mcg total) by mouth 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 No particular days dicyclomine (BENTYL) 10 mg capsule Take 2 capsules (20 mg total) by mouth 4 (four) times a day before meals and nightly 90 capsule 3 2 diphenoxylate-atropi ne (LOMOTIL) 2.5-0.025 mg per tablet TAKE 1 TABLET BY MOUTH 4 (FOUR) TIMES A DAY NEEDED FOR DIARRHEA 120 tablet 1 4 ergocalciferol (VITAMIN D) 50,000 unit capsuleIndications:V itamin D Deficiency Take 1 capsule (50,000 Units total) by mouth once a week Take on Sunday esomeprazole DR (NexIUM) 40 mg capsule daily eszopiclone (LUNESTA) 3 mg tablet 5 fluticasone propionate (FLONASE) 50 mcg/actuation nasal sprayIndications:Met hicillin-Resistant S. Aureus Nasal Colonization,Nasal Polyp Administer 2 sprays into each nostril 3 (three) times a day as needed for rhinitis or allergies Left nostril only ( told her to saturate it) Humira Pen 40 mg/0.8 mL pen injector kitIndications:Crohn 's Disease Inject 0.8 mL (40 mg total) under the skin every 7 days Sundays each 5 hydrocortisone 2.5 % creamIndications:Pru dejon nodularis Apply to aa on face and itchy spots BID 30 g 3 5 ketorolac (ACULAR) 0.5 % ophthalmic solution 4 mercaptopurine (PURINETHOL) 50 mg tabletIndications:Cr ohn's Disease Take 1 tablet (50 mg total) by mouth daily Safety Labs due: 06/2025 30 tablet 2 5 mupirocin (BACTROBAN) 2 % ointmentIndications: Methicillin-Resistan t S. 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/ MRSA infection in Palate Apply 1 application (deactivated) to each nostril 3 (three) times a day 2 ondansetron ODT (ZOFRAN-ODT) 4 mg disintegrating tablet DISSOLVE ONE TABLET ON TONGUE EVERY 8 HOURS NEEDED FOR NAUSEA OR VOMITING 30 tablet 1 2 oxyCODONE-acetaminop hen (PERCOCET) 10-325 mg per tablet [address] (PROTONIX) 40 mg EC tablet TAKE ONE TABLET BY MOUTH IN THE MORNING BEFORE BREAKFAST 30 tablet 11 5 PARoxetine (PAXIL) 40 mg tabletIndications:Ge neralized Anxiety Disorder,Started in [place] r/t anxiety and nerves/ chronic pain Take 1 tablet (40 mg total) by mouth nightly 3 plecanatide (Trulance) 3 mg tabletIndications:Ot her constipation Take 1 tablet (3 mg total) by mouth daily Please update office on your symptoms in 1 week. 30 tablet 1 5 predniSONE (DELTASONE) 5 mg tablet TAKE A HALF TABLET BY MOUTH DAILY PATCH NEEDS APPOINTMENT BEFORE MORE REFILLS 15 tablet 5 rOPINIRole (REQUIP) 1 mg tabletIndications:Re stless Legs Syndrome Take 1 tablet (1 mg total) by mouth nightly 4 rosuvastatin (CRESTOR) 40 mg tablet TAKE ONE TABLET BY MOUTH DAILY 30 tablet 5 sucralfate (CARAFATE) 1 gram tablet Take 1 tablet (1 g total) by mouth 3 (three) times a day 90 tablet 1 2 tiZANidine (ZANAFLEX) 2 mg tablet TAKE ONE TABLET BY MOUTH EVERY SIX HOURS NEEDED FOR MUSCLE SPASM 120 tablet 5 turmeric root extract 500 mg capsuleIndications:A nti inflammatory/supplem ent Take 1,000 mg by mouth with lunch umeclidinium-vilante roL (ANORO ELLIPTA) 62.5-25 mcg/actuation blister with device Inhale 1 puff daily 1 each 11 4 UNABLE TO FIND Take 1 each by mouth daily Med Name: beef liver Grassfed supplement documented as of this encounter Discharge Disposition Disposition Code Departure Means Destination Discharge to home or self care documented in this encounter Plan of Treatment [...] Procedure Name Priority Date/Time Associated Diagnosis Comments XR SPINE CERVICAL W FLEXION AND EXTENSION 4 VIEWS Routine 07/28/2025 11:26 AM CDT Arthralgia, unspecified joint XR SACROILIAC JOINTS 3 OR MORE VIEWS Routine 07/28/2025 11:26 AM CDT Arthralgia, unspecified joint XR SPINE LUMBAR COMPLETE 4 OR MORE VIEWS Routine 07/28/2025 11:26 AM CDT Arthralgia, unspecified joint XR SPINE THORACIC 4 OR MORE VIEWS Routine 07/28/2025 11:26 AM CDT Arthralgia, unspecified joint documented in this encounter Results * XR Spine Thoracic 4 Or More Views (07/28/2025 11:26 AM CDT) Anatomical Region Laterality Modality Spine N/A Computed Radiogr aphy 07/28/2025 2:23 PM CDT Impressions 07/28/2025 2:36 PM CDT 1. Normal radiographs of the cervical spine. 2. Multilevel degenerative disease of the thoracolumbar spine, most prominent and moderate at L5-S1. 3. Normal radiographs of the sacroiliac joints. Dictated by: Simona Bullock M.D. The radiology attending physician has personally reviewed this study, and had reviewed and/or edited this written report and agrees with it. Electronically signed by: Suraj Fletcher M.D. Narrative 07/28/2025 2:36 PM CDT EXAMINATION: XR SACROILIAC JOINTS 3 OR MORE VIEWS, XR SPINE LUMBAR 4 OR MORE VIEWS, XR SPINE CERVICAL W FLEXION AND EXTENSION 4 OR 5 VIEWS, XR SPINE THORACIC 4 OR MORE VIEWS HISTORY: Evaluation for inflammatory arthritis and sacroiliitis. COMPARISON: MRI hip 08/22/2024, CT abdomen and pelvis 04/18/2024. FINDINGS: Cervical spine: 7 radiographs of the cervical spine were submitted for interpretation. The alignment is normal. There is no listhesis. The disc heights are normal. There are no compression fractures. There is no prevertebral swelling. There is no osseous neural foraminal stenosis. Patient is edentulous. Thoracic spine: 4 radiographs of the thoracic spine were submitted for interpretation. The alignment is normal. There is no listhesis. There are no compression fractures. There is mild multilevel degenerative disc disease of the thoracic spine. Lumbar spine: 4 radiographs of the lumbar spine were submitted for interpretation. There is mild dextrocurvature. There is multilevel degenerative disc disease, most prominent and moderate at L5-S1. There is no listhesis. There are no compression fractures. There are scattered atherosclerotic vascular calcifications. Sacroiliac joints: 3 radiographs of the sacroiliac joints were submitted for interpretation. The joint spaces are preserved. No radiographic evidence of sacroiliitis. There are surgical clips in the pelvis. Procedure Note Suraj Fletcher MD - 07/28/2025 EXAMINATION: XR SACROILIAC JOINTS 3 OR MORE VIEWS, XR SPINE LUMBAR 4 OR MORE VIEWS, XR SPINE CERVICAL W FLEXION AND EXTENSION 4 OR 5 VIEWS, XR SPINE THORACIC 4 OR MORE VIEWS HISTORY: Evaluation for inflammatory arthritis and sacroiliitis. COMPARISON: MRI hip 08/22/2024, CT abdomen and pelvis 04/18/2024. FINDINGS: Cervical spine: 7 radiographs of the cervical spine were submitted for interpretation. The alignment is normal. There is no listhesis. The disc heights are normal. There are no compression fractures. There is no prevertebral swelling. There is no osseous neural foraminal stenosis. Patient is edentulous. Thoracic spine: 4 radiographs of the thoracic spine were submitted for interpretation. The alignment is normal. There is no listhesis. There are no compression fractures. There is mild multilevel degenerative disc disease of the thoracic spine. Lumbar spine: 4 radiographs of the lumbar spine were submitted for interpretation. There is mild dextrocurvature. There is multilevel degenerative disc disease, most prominent and moderate at L5-S1. There is no listhesis. There are no compression fractures. There are scattered atherosclerotic vascular calcifications. Sacroiliac joints: 3 radiographs of the sacroiliac joints were submitted for interpretation. The joint spaces are preserved. No radiographic evidence of sacroiliitis. There are surgical clips in the pelvis. IMPRESSION: 1. Normal radiographs of the cervical spine. 2. Multilevel degenerative disease of the thoracolumbar spine, most prominent and moderate at L5-S1. 3. Normal radiographs of the sacroiliac joints. Dictated by: Simona Bullock M.D. The radiology attending physician has personally reviewed this study, and had reviewed and/or edited this written report and agrees with it. Electronically signed by: Suraj Fletcher M.D. Gerry Garrett MD IM XR PROCEDURES Final Result * XR Spine Cervical W Flexion And Extension 4 or 5 Views (07/28/2025 11:26 AM CDT) Anatomical Region Laterality Modality Spine N/A Computed Radiogr aphy 07/28/2025 2:23 PM CDT Impressions 07/28/2025 2:36 PM CDT 1. Normal radiographs of the cervical spine. 2. Multilevel degenerative disease of the thoracolumbar spine, most prominent and moderate at L5-S1. 3. Normal radiographs of the sacroiliac joints. Dictated by: Simona Bullock M.D. The radiology attending physician has personally reviewed this study, and had reviewed and/or edited this written report and agrees with it. Electronically signed by: Suraj Fletcher M.D. Narrative 07/28/2025 2:36 PM CDT EXAMINATION: XR SACROILIAC JOINTS 3 OR MORE VIEWS, XR SPINE LUMBAR 4 OR MORE VIEWS, XR SPINE CERVICAL W FLEXION AND EXTENSION 4 OR 5 VIEWS, XR SPINE THORACIC 4 OR MORE VIEWS HISTORY: Evaluation for inflammatory arthritis and sacroiliitis. COMPARISON: MRI hip 08/22/2024, CT abdomen and pelvis 04/18/2024. FINDINGS: Cervical spine: 7 radiographs of the cervical spine were submitted for interpretation. The alignment is normal. There is no listhesis. The disc heights are normal. There are no compression fractures. There is no prevertebral swelling. There is no osseous neural foraminal stenosis. Patient is edentulous. Thoracic spine: 4 radiographs of the thoracic spine were submitted for interpretation. The alignment is normal. There is no listhesis. There are no compression fractures. There is mild multilevel degenerative disc disease of the thoracic spine. Lumbar spine: 4 radiographs of the lumbar spine were submitted for interpretation. There is mild dextrocurvature. There is multilevel degenerative disc disease, most prominent and moderate at L5-S1. There is no listhesis. There are no compression fractures. There are scattered atherosclerotic vascular calcifications. Sacroiliac joints: 3 radiographs of the sacroiliac joints were submitted for interpretation. The joint spaces are preserved. No radiographic evidence of sacroiliitis. There are surgical clips in the pelvis. Procedure Note Suraj Fletcher MD - 07/28/2025 EXAMINATION: XR SACROILIAC JOINTS 3 OR MORE VIEWS, XR SPINE LUMBAR 4 OR MORE VIEWS, XR SPINE CERVICAL W FLEXION AND EXTENSION 4 OR 5 VIEWS, XR SPINE THORACIC 4 OR MORE VIEWS HISTORY: Evaluation for inflammatory arthritis and sacroiliitis. COMPARISON: MRI hip 08/22/2024, CT abdomen and pelvis 04/18/2024. FINDINGS: Cervical spine: 7 radiographs of the cervical spine were submitted for interpretation. The alignment is normal. There is no listhesis. The disc heights are normal. There are no compression fractures. There is no prevertebral swelling. There is no osseous neural foraminal stenosis. Patient is edentulous. Thoracic spine: 4 radiographs of the thoracic spine were submitted for interpretation. The alignment is normal. There is no listhesis. There are no compression fractures. There is mild multilevel degenerative disc disease of the thoracic spine. Lumbar spine: 4 radiographs of the lumbar spine were submitted for interpretation. There is mild dextrocurvature. There is multilevel degenerative disc disease, most prominent and moderate at L5-S1. There is no listhesis. There are no compression fractures. There are scattered atherosclerotic vascular calcifications. Sacroiliac joints: 3 radiographs of the sacroiliac joints were submitted for interpretation. The joint spaces are preserved. No radiographic evidence of sacroiliitis. There are surgical clips in the pelvis. IMPRESSION: 1. Normal radiographs of the cervical spine. 2. Multilevel degenerative disease of the thoracolumbar spine, most prominent and moderate at L5-S1. 3. Normal radiographs of the sacroiliac joints. Dictated by: Simona Bullock M.D. The radiology attending physician has personally reviewed this study, and had reviewed and/or edited this written report and agrees with it. Electronically signed by: Suraj Fletcher M.D. Result [facility] Gerry Garrett MD IM XR PROCEDURES Final Result * XR Spine Lumbar 4 or More Views (07/28/2025 11:26 AM CDT) Anatomical Region Laterality Modality Spine N/A Computed Radiogr aphy 07/28/2025 2:23 PM CDT Impressions 07/28/2025 2:36 PM CDT 1. Normal radiographs of the cervical spine. 2. Multilevel degenerative disease of the thoracolumbar spine, most prominent and moderate at L5-S1. 3. Normal radiographs of the sacroiliac joints. Dictated by: Simona Bullock M.D. The radiology attending physician has personally reviewed this study, and had reviewed and/or edited this written report and agrees with it. Electronically signed by: Suraj Fletcher M.D. Narrative 07/28/2025 2:36 PM CDT EXAMINATION: XR SACROILIAC JOINTS 3 OR MORE VIEWS, XR SPINE LUMBAR 4 OR MORE VIEWS, XR SPINE CERVICAL W FLEXION AND EXTENSION 4 OR 5 VIEWS, XR SPINE THORACIC 4 OR MORE VIEWS HISTORY: Evaluation for inflammatory arthritis and sacroiliitis. COMPARISON: MRI hip 08/22/2024, CT abdomen and pelvis 04/18/2024. FINDINGS: Cervical spine: 7 radiographs of the cervical spine were submitted for interpretation. The alignment is normal. There is no listhesis. The disc heights are normal. There are no compression fractures. There is no prevertebral swelling. There is no osseous neural foraminal stenosis. Patient is edentulous. Thoracic spine: 4 radiographs of the thoracic spine were submitted for interpretation. The alignment is normal. There is no listhesis. There are no compression fractures. There is mild multilevel degenerative disc disease of the thoracic spine. Lumbar spine: 4 radiographs of the lumbar spine were submitted for interpretation. There is mild dextrocurvature. There is multilevel degenerative disc disease, most prominent and moderate at L5-S1. There is no listhesis. There are no compression fractures. There are scattered atherosclerotic vascular calcifications. Sacroiliac joints: 3 radiographs of the sacroiliac joints were submitted for interpretation. The joint spaces are preserved. No radiographic evidence of sacroiliitis. There are surgical clips in the pelvis. Procedure Note Suraj Fletcher MD - 07/28/2025 EXAMINATION: XR SACROILIAC JOINTS 3 OR MORE VIEWS, XR SPINE LUMBAR 4 OR MORE VIEWS, XR SPINE CERVICAL W FLEXION AND EXTENSION 4 OR 5 VIEWS, XR SPINE THORACIC 4 OR MORE VIEWS HISTORY: Evaluation for inflammatory arthritis and sacroiliitis. COMPARISON: MRI hip 08/22/2024, CT abdomen and pelvis 04/18/2024. FINDINGS: Cervical spine: 7 radiographs of the cervical spine were submitted for interpretation. The alignment is normal. There is no listhesis. The disc heights are normal. There are no compression fractures. There is no prevertebral swelling. There is no osseous neural foraminal stenosis. Patient is edentulous. Thoracic spine: 4 radiographs of the thoracic spine were submitted for interpretation. The alignment is normal. There is no listhesis. There are no compression fractures. There is mild multilevel degenerative disc disease of the thoracic spine. Lumbar spine: 4 radiographs of the lumbar spine were submitted for interpretation. There is mild dextrocurvature. There is multilevel degenerative disc disease, most prominent and moderate at L5-S1. There is no listhesis. There are no compression fractures. There are scattered atherosclerotic vascular calcifications. Sacroiliac joints: 3 radiographs of the sacroiliac joints were submitted for interpretation. The joint spaces are preserved. No radiographic evidence of sacroiliitis. There are surgical clips in the pelvis. IMPRESSION: 1. Normal radiographs of the cervical spine. 2. Multilevel degenerative disease of the thoracolumbar spine, most prominent and moderate at L5-S1. 3. Normal radiographs of the sacroiliac joints. Dictated by: Simona Bullock M.D. The radiology attending physician has personally reviewed this study, and had reviewed and/or edited this written report and agrees with it. Electronically signed by: Suraj Fletcher M.D. Gerry Garrett MD IMG XR PROCEDURES Final Result * XR Sacroiliac Joints 3 or More Views (07/28/2025 11:26 AM CDT) Anatomical Region Laterality Modality Pelvis, Body N/A Computed Radiogr aphy 07/28/2025 2:23 PM CDT Impressions 07/28/2025 2:36 PM CDT 1. Normal radiographs of the cervical spine. 2. Multilevel degenerative disease of the thoracolumbar spine, most prominent and moderate at L5-S1. 3. Normal radiographs of the sacroiliac joints. Dictated by: Simona Bullock M.D. The radiology attending physician has personally reviewed this study, and had reviewed and/or edited this written report and agrees with it. Electronically signed by: Suraj Fletcher M.D. Narrative 07/28/2025 2:36 PM CDT EXAMINATION: XR SACROILIAC JOINTS 3 OR MORE VIEWS, XR SPINE LUMBAR 4 OR MORE VIEWS, XR SPINE CERVICAL W FLEXION AND EXTENSION 4 OR 5 VIEWS, XR SPINE THORACIC 4 OR MORE VIEWS HISTORY: Evaluation for inflammatory arthritis and sacroiliitis. COMPARISON: MRI hip 08/22/2024, CT abdomen and pelvis 04/18/2024. FINDINGS: Cervical spine: 7 radiographs of the cervical spine were submitted for interpretation. The alignment is normal. There is no listhesis. The disc heights are normal. There are no compression fractures. There is no prevertebral swelling. There is no osseous neural foraminal stenosis. Patient is edentulous. Thoracic spine: 4 radiographs of the thoracic spine were submitted for interpretation. The alignment is normal. There is no listhesis. There are no compression fractures. There is mild multilevel degenerative disc disease of the thoracic spine. Lumbar spine: 4 radiographs of the lumbar spine were submitted for interpretation. There is mild dextrocurvature. There is multilevel degenerative disc disease, most prominent and moderate at L5-S1. There is no listhesis. There are no compression fractures. There are scattered atherosclerotic vascular calcifications. Sacroiliac joints: 3 radiographs of the sacroiliac joints were submitted for interpretation. The joint spaces are preserved. No radiographic evidence of sacroiliitis. There are surgical clips in the pelvis. Procedure Note Suraj Fletcher MD - 07/28/2025 EXAMINATION: XR SACROILIAC JOINTS 3 OR MORE VIEWS, XR SPINE LUMBAR 4 OR MORE VIEWS, XR SPINE CERVICAL W FLEXION AND EXTENSION 4 OR 5 VIEWS, XR SPINE THORACIC 4 OR MORE VIEWS HISTORY: Evaluation for inflammatory arthritis and sacroiliitis. COMPARISON: MRI hip 08/22/2024, CT abdomen and pelvis 04/18/2024. FINDINGS: Cervical spine: 7 radiographs of the cervical spine were submitted for interpretation. The alignment is normal. There is no listhesis. The disc heights are normal. There are no compression fractures. There is no prevertebral swelling. There is no osseous neural foraminal stenosis. Patient is edentulous. Thoracic spine: 4 radiographs of the thoracic spine were submitted for interpretation. The alignment is normal. There is no listhesis. There are no compression fractures. There is mild multilevel degenerative disc disease of the thoracic spine. Lumbar spine: 4 radiographs of the lumbar spine were submitted for interpretation. There is mild dextrocurvature. There is multilevel degenerative disc disease, most prominent and moderate at L5-S1. There is no listhesis. There are no compression fractures. There are scattered atherosclerotic vascular calcifications. Sacroiliac joints: 3 radiographs of the sacroiliac joints were submitted for interpretation. The joint spaces are preserved. No radiographic evidence of sacroiliitis. There are surgical clips in the pelvis. IMPRESSION: 1. Normal radiographs of the cervical spine. 2. Multilevel degenerative disease of the thoracolumbar spine, most prominent and moderate at L5-S1. 3. Normal radiographs of the sacroiliac joints. Dictated by: Simona Bullock M.D. The radiology attending physician has personally reviewed this study, and had reviewed and/or edited this written report and agrees with it. Electronically signed by: Suraj Fletcher M.D. Gerry Garrett MD IMG XR PROCEDURES Final Result documented in this encounter Visit Diagnoses Diagnosis Arthralgia, unspecified joint documented in this encounter Care Teams Hand Violin Maker Relationship Specialty Start Date End Date Kassandra Hooks NP PCP - General Nurse Practitioner 08/27/24 Lucho Peralta MD Referring Physician Otolaryngology 12/07/23 documented as of this encounter
--- OUTSIDE RECORDS SUMMARY | 2025-07-28 11:50 | XMS_ITS | Encounter Summary ---
Author Organization [facility] Healthcare Address [address] [place] [address] Care Team Providers Care Shopfitter Name Role Phone Lucho Peralta MD Unavailable Kassandra Hooks NP Primary Care Provider + Encounter Details Date Type Department Care Team (Late st Contact Info) Description 07/28/2025 11:50 AM CDT Lab [facility] ([facility]) [address] [place] [address] [phone] Crohn's disease of both small and large intestine with other complication Social History Tobacco Use Types Packs/Day Years [...] on file 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 Gender Identity Female 06/12/2023 3:27 PM CDT Sexual Orientation Lesbian 06/12/2023 3: 27 PM CDT documented as of this encounter Plan of Treatment Pending Results Name Type Priority Associated Diagnoses Date /Time Adalimumab quantitative with reflex to antibody, serum Lab Routine Crohn's disease of both small and large intestine with other complication 07/28/2025 10:50 AM CDT Scheduled Procedures Name Priority Associated Diagnoses Date/Ti [...] Procedure Name Priority Date/Time Associated Diagnosis Comments CRP (ACUTE PHASE) Routine 07/28/2025 10: 50 AM CDT Crohn's disease of both small and large intestine with other complication documented in this encounter Results * CRP (acute phase) (07/28/2025 10:50 AM CDT) CRP 1.9 <=10.0 mg/L Blood 07/28/2025 10:5 0 AM CDT 07/28/2025 11:26 AM CDT us Corazon Becerra NP LAB BLOOD ORDERABLES Final Result [facility] Department [place] [address] documented in this encounter Visit Diagnoses Diagnosis Crohn's disease of both small and large intestine with other complication documented in this encounter Care Teams Shopfitter Relationship Specialty Start Date End Date Kassandra Hooks NP PCP - General Nurse Practitioner 08/27/24 Lucho Peralta MD Referring Physician Otolaryngology 12/07/23 documented as of this encounter
[2025-07-29 19:45] VITALS: BP 133/62; PULSE 92; RESP 16; TEMP 36.3; O2SAT 97
--- NOTE | 2025-07-29 19:46 | ED.ABDPAIN ---
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 She went to [facility] where she have a CT of the chest/abdomen/ pelvis which revealed a 3.7 right adnexal mass with mesenteric and peritoneal stranding suggestive of carcinomatosis peritonitis . patient is scheduled to see short range air defense artillery. Patient presents to the ED today with -- right lower quadrant pain. Pain is nonradiating. Pain comes up intermittently. No exacerbating or relieving factors. -- Nausea with 4 episodes of vomiting. No hematemesis noted. -- Five episodes of diarrhea today. This is similar to her usual episodes of diarrhea from Crohn's disease. She was seen at [facility] on 07/24/2025 and noted to have right adnexal mass with mesenteric and peritoneal stranding. MD elicited complaint: abdominal pain Pertinent past history: constipation Onset (ago): day(s) ( 5 days days) Pain Consistency: intermittent Location: RLQ Severity: moderate Quality: cramping Radiation: none Migration to: no migration Exacerbating factors: nothing Relieving factors: nothing Associated symptoms: nausea, vomiting and diarrhea Related Data Patient : No Home Medications ?Medication ?Instructions ?Recorded ?Confirmed ?Last Taken ?Type sucralfate 1 gram tablet 1 g PO TID PRN Acid Reflux 08/02/21 04/23/25 04/14/24 History ascorbic acid (vitamin C) 1,000 mg 1 g PO DAILY 05/12/22 04/23/25 09/12/24 History tablet (Vitamin C) aspirin 81 mg tablet,delayed 81 mg PO DAILY 05/12/22 04/23/25 09/12/24 History release turmeric 100 mg-benjy 150 1 cap PO DAILY 05/12/22 04/23/25 09/12/24 History mg-olive 50 mg-oreg 150 mg-capryl capsule hydrocortisone acetate 25 mg 25 mg RECTAL DAILY PRN CROHN'S EXAC 07/19/23 04/23/25 04/14/24 History rectal suppository mercaptopurine 50 mg tablet 50 mg PO DAILY 07/19/23 04/23/25 09/12/24 History sumatriptan succinate 50 mg tablet 50 mg PO ONCE PRN MIGRAINES 07/19/23 04/23/25 04/14/24 History (Imitrex) tizanidine 2 mg capsule 2 mg PO TID 07/25/23 04/23/25 09/12/24 History Allergies Allergy/AdvReac Type Severity Reaction Status Date / Time metronidazole (From Flagyl) Allergy Severe GI bleeding Verified 07/29/25 19:53 Sulfa (Sulfonamide Allergy Severe GI Bleeding Verified 07/29/25 19:53 Antibiotics) sulfamethoxazole (From Allergy Unknown Verified 07/29/25 19:53 Bactrim) trimethoprim (From Bactrim) Allergy Unknown Verified 07/29/25 19:53 hydrocodone (From Vicodin) AdvReac Severe Vomiting Verified 07/29/25 19:53 adhesive tape AdvReac Blister Verified 07/29/25 19:53 Review of Systems Review of Systems: All systems reviewed & are unremarkable except as noted in HPI and below Constitutional: Constitutional: Reports as per HPI and Reports no additional constitutional complaints Eyes: Eyes: Reports as per HPI and Reports no additional eye complaints ENT: Reports system reviewed and no additional complaints, except as documented and Reports as per HPI Cardiovascular: Cardiovascular: Reports as per HPI and Reports no additional cardiovascular complaints Respiratory: Respiratory: Reports as per HPI and Reports no additional respiratory complaints Gastrointestinal: Gastrointestinal: Reports as per HPI, Reports no additional gastrointestinal complaints, Reports abdominal pain, Reports diarrhea, Reports nausea and Reports vomiting Genitourinary: Genitourinary: Reports no additional female genitourinary complaints and Reports as per HPI Musculoskeletal: Musculoskeletal: Reports no additional musculoskeletal complaints Integumentary/Breasts: Skin/Breast: Reports system reviewed and no additional complaints, except as docu and Reports as per HPI Neurologic: Reports system reviewed and no additional complaints, except as documented and Reports as per HPI Psychiatric: Psychiatric: Reports no additional psychiatric complaints and Reports as per HPI Endocrine: Endocrine: Reports no additional endocrine complaints and Reports as per HPI Hematologic/Lymphatic: Hematologic/Lymphatic: Reports no additional hematologic/lymphatic complaints and Reports as per HPI Allergic/Immunologic: Allergic/Immunologic: Reports no additional allergic/immunologic complaints and Reports as per HPI [facility] Past Medical History Medical History Lumbar spondylosis Fatigue Iron deficiency anemia Diabetes Factor V Leiden Osteomyelitis History of TIA (transient ischemic attack) Restless leg syndrome Insomnia Portal hypertension Atrial fibrillation 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 01/16/25 patient declined SDOH Smoking packs per day: 2 Smoking cigarettes per day: 40.0 Years smoked: 20 Smoking pack-years: 40.00 Smoking status: Former smoker Tobacco type: cigarettes Smoking end date: 10/23/15 Additional smoking assessment comments: Quit 2015. 35pk yr history Alcohol intake: former Substance use: former Substance use type: marijuana Other substance usage details: Marijuana tea daily Last use: 09/11 Do You Feel Safe in your Home?: Yes Lack of Transportation: YES Lack of Food: Often True Current Housing: I Have Housing Concerned About Future Housing: YES Difficulty Paying Gas/Electric Bills: YES Difficulty Paying for Meds: YES Currently Unemployed: YES Education: Bachelor's Degree Difficulty w/ Childcare or Family Care: No Living arrangements: with family Occupation/Education: retired Spiritual care concerns: No Exam Const: General: no acute distress Orientation/consciousness: patient oriented x3 Limitations: no limitations HENMT: Head: normal to inspection Ears: external ears normal Face/Nose/Sinus: Normal external nose present Face and sinus: normal facial exam Mouth: Yes Normal oral and palatal mucosa present Throat: posterior oropharynx normal Eyes: Conjunctivae: conjunctivae normal Pupils: Equal, round and reactive pupils present EOM: EOMs intact bilaterally Direct Ophthalmoscopy: no photophobia Neck: Neck: normal visual inspection, no lymphadenopathy and no meningeal signs Chest: Chest palpation & inspection: normal inspection of the chest Resp: Effort & Inspection: normal respiratory effort Auscultation: clear to auscultation bilaterally Cardio: Rate: regular rate Rhythm: regular rhythm GI: GI Palp: Yes Soft to palpation Auscultation: normal bowel sounds Other: diffuse tenderness without any rigidity /rebound. : General: Yes no CVA tenderness Back/Spine/Pelvis: Back: no CVA tenderness Skin: General skin exam: normal color Rashes: no rashes Wounds: no wounds Neuro: General: patient oriented x3, moves all extremities, no meningeal signs, no focal motor deficits and CN's II-XI intact bilaterally Cranial nerves: Yes Nystagmus not present Speech: normal speech Gait exam (Neuro): Normal gait present Extrem: General: normal to inspection and no clubbing, cyanosis or edema Psych: Mental Status: mental status grossly normal Affect: normal affect Attitude: cooperative Course Course Emergency Course: Abdominal pain-- No acute findings. Patient has white cell count of 4.7 , normal lactate and an unremarkable UA. patient has a history of Crohn's disease. Nothing to suggest bowel obstruction. Right adnexal mass with mesenteric and peritoneal stranding suggestive of carcinomatosis peritonei patient is scheduled to see a short range air defense artillery specialist. Vital Signs Vital signs: Vital Signs Temperature 36.3 C L 07/29/25 19:45 Pulse Rate 92 07/29/25 19:45 Respiratory Rate 16 07/29/25 19:45 Blood Pressure 133/62 07/29/25 19:45 Pulse Oximetry 97 07/29/25 19:45 Oxygen Delivery Room Air 07/29/25 19:45 Temperature 36.3 C L 07/29/25 19:45 Pulse Rate 92 07/29/25 19:45 Respiratory Rate 16 07/29/25 19:45 Blood Pressure 133/62 07/29/25 19:45 Pulse Oximetry 97 07/29/25 19:45 Oxygen Delivery Room Air 07/29/25 19:45 MDM - Abdominal Pain MDM Narrative Medical decision making narrative: Right adnexal mass abdominal pain Differential Diagnosis Differential diagnosis: Likely abdominal pain, calculus of kidney and diverticulitis Medical Records Attestation: I reviewed the patient's medical records. Lab Data Attestation: I reviewed the patient's lab results. 07/29/25 21:05 07/29/25 21:05 Labs: Lab Results 07/29/25 07/29/25 Range/Units 20:59 21:05 WBC 4.7 L (4.8-10.8) K/mm3 RBC 3.59 L (4.20-5.40) M/mm3 Hgb 12.1 (12.0-15.0) g/dL Hct 35.9 (35.0-49.0) % MCV 100.0 (78.0-102.0) fL MCH 33.7 H (27.0-31.0) pg MCHC 33.7 (32-36) g/dL RDW 14.6 H (11.6-14.4) % Plt Count 208 (150-420) K/mm3 MPV 10.1 (9.2-11.8) fl Immature Gran % (Auto) Not Reportable Neut % (Auto) Not Reportable Lymph % (Auto) Not Reportable Billings % (Auto) Not Reportable Eos % (Auto) Not Reportable Baso % (Auto) Not Reportable Lymph # (Auto) Not Reportable Billings # (Auto) Not Reportable Eos # (Auto) Not Reportable Baso # (Auto) Not Reportable Abs Immat Gran (auto) Not Reportable Absolute Neuts (auto) Not Reportable Absolute Nucleated RBC Not Reportable Total Counted 100 Neutrophils % (Manual) 39 L (46-73) % Band Neutrophils % 0 (0-6) % Lymphocytes % (Manual) 53 H (18-44) % Monocytes % (Manual) 2 L (3-9) % Eosinophils % (Manual) 6 (1-6) % Nucleated RBC % Not Reportable Abs Neuts (Manual) 1.83 (1.3-6.7) K/mm3 Abs Lymphs (Manual) 2.49 (1.1-4.5) K/mm3 Abs Monocytes (Manual) 0.09 L (0.1-0.90) K/mm3 Absolute Eos (Manual) 0.28 (0.02-0.50) K/mm3 Platelet Estimate Adequate (Adequate) Poikilocytosis 1+ Anisocytosis 2+ Schistocytes None seen Sodium 139 (137-145) mmol/L Potassium 3.9 (3.4-5.0) mmol/L Chloride 107 (98-107) mmol/L Carbon Dioxide 25 (22-30) mmol/L Anion Gap 7 (4-12) mmol/L BUN 10 (7-17) mg/dL Creatinine 0.78 (0.7-1.0) mg/dL Estim Creat Clear Calc 75 ml/min Estimated GFR > 60 (59 - ) Glucose 92 (65-110) mg/dL Calculated Osmolality 287 (285-295) mOsm/kg Lactic Acid 0.5 (0.4-2.0) mmol/L Calcium 9.1 (8.4-10.2) mg/dL Total Bilirubin 0.5 (0.2-1.3) mg/dL AST 30 (14-36) U/L ALT 25 (6-35) U/L Alkaline Phosphatase 63 (38-126) U/L Total Protein 6.4 (6.3-8.2) g/dL Albumin 3.8 (3.5-5.1) g/dL Lipase 73 (23-300) U/L Urine Color Yellow (Yellow) Urine Appearance Clear (Clear) Urine pH 6.0 (5.0-8.0) Ur Specific Loop 1.010 (1.010-1.020) Urine Protein Negative (Negative) Urine Glucose (UA) Negative (Negative) Urine Ketones Negative (Negative) Ur Blood (Man) Trace-intact H (Negative) Urine Nitrate Negative (Negative) Urine Bilirubin Negative (Negative) Urine Urobilinogen 0.2 (0.2-1.0) mg/dL Leukocyte Esterase Rfl Negative (Negative) TRUE/UL Discharge Plan Discharge Clinical Impression: Adnexal mass Crohn's disease Qualifiers: Gastrointestinal tract location: unspecified location Digestive disease complication type: without complication Qualified Code(s): K50.90 - Crohn's disease, unspecified, without complications Abdominal pain Qualifiers: Abdominal location: right lower quadrant Qualified Code(s): R10.31 - Right lower quadrant pain Patient Disposition: Home Condition: Stable Instructions: Antibiotic Form, Abdominal Pain (ED) Patient Language: Tajik Prescriptions: No Action ondansetron 4 mg tablet,disintegrating 4 mg PO Q4H 0 Days Qty: 10 0RF Rx Instructions: 1st dose 1-2 hr before radiation amoxicillin 500 mg tablet 1,000 mg PO Q12H 7 Days Qty: 28 0RF meclizine 25 mg tablet 25 mg PO TID PRN (Reason: dizziness) Qty: 20 0RF tizanidine 2 mg capsule 2 mg PO TID mupirocin [Centany] 2 % ointment 1 applic topical QID Qty: 44 3RF Rx Instructions: Melt 2 in in each irrigation bottle irrigate 4 times per day sucralfate 1 gram tablet 1 g PO TID PRN (Reason: Acid Reflux) ascorbic acid (vitamin C) [Vitamin C] 1,000 mg Tablet 1 g PO DAILY aspirin 81 mg Tablet,Delayed Release (Dr/Ec) 81 mg PO DAILY towmdofw-dpiz-wcemy-oreg-capry 100 mg-150 mg- 50 mg-150 mg Capsule 1 cap PO DAILY mercaptopurine 50 mg tablet 50 mg PO DAILY sumatriptan succinate [Imitrex] 50 mg Tablet 50 mg PO ONCE PRN (Reason: MIGRAINES) hydrocortisone acetate 25 mg suppository 25 mg RECTAL DAILY PRN (Reason: CROHN'S EXAC) Saccharomyces boulardii [Florastor] 250 mg Capsule 250 mg PO TID Qty: 30 0RF linezolid 600 mg Tablet 600 mg PO Q12HR Qty: 18 0RF Humira Pen 40 mg/0.8 mL pen injector kit See Rx Instructions subcut .Every other Week Qty: 2 10RF Rx Instructions: inject one - 40 mg/0.8 mL pen every other week subcut . pantoprazole 40 mg tablet,delayed release (DR/EC) 40 mg PO QAM Qty: 90 0RF cholecalciferol (vitamin D3) 1,250 mcg (50,000 unit) capsule See Rx Instructions .ROUTE .COMPLEX Qty: 12 5RF Dose Instruction: TAKE ONE CAPSULE BY MOUTH WEEKLY ON SUNDAY Rx Instructions: TAKE ONE CAPSULE BY MOUTH WEEKLY ON SUNDAY albuterol sulfate 2.5 mg /3 mL (0.083 %) solution for nebulization 2.5 mg inhalation Q4-6H PRN (Reason: shortness of breath or wheezing) Qty: 90 0RF albuterol sulfate 90 mcg/actuation HFA aerosol inhaler 2 inh inhalation Q4H PRN (Reason: shortness of breath or wheezing) Qty: 6.7 3RF paroxetine HCl [Paxil] 40 mg tablet 40 mg PO HS Qty: 90 1RF ropinirole 1 mg tablet 1 mg PO DAILY Qty: 30 3RF eszopiclone 3 mg tablet 3 mg PO QHS Qty: 90 0RF Eliquis 5 mg tablet 5 mg PO BID Qty: 60 3RF oxycodone-acetaminophen 10-325 mg tablet 1 tablet PO Q8H PRN (Reason: pain) Qty: 90 0RF alprazolam 0.5 mg tablet 0.5 mg PO BID Qty: 60 0RF Follow-up/Referrals: Kassandra Hooks APRN [Primary Care Provider, Family Practice] Time of Disposition: 22:33
--- OUTSIDE RECORDS SUMMARY | 2025-07-29 19:48 | XMS_ITS | Encounter Summary ---
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 Name Role Phone Jesus Gonzalez DO Primary Care Provider Odilon Vyas MD Primary Care Provider + [phone] Lucho Peralta MD Unavailable Xiomara Carlos MD Primary Care Provider [phone] Odilon Vyas MD Primary Care Provider + [phone] Unknown, Notinfile Primary Care Provider Unavail able Kassandra Hooks NP Primary Care Provider + Encounter Details Date Type Department Care Team (Latest Contact Info) Description 08/24/2015 Orders Only [facility] Chasity Borjas, CARMINA [address] [facility] [address] [place], [place] [id number] Social History Tobacco Use Types Packs/Day Years Used Date Smoking Tobacco: Never Assessed Comments Unknown Sex and Gender Information Value Date Recorded Sex Assigned at Not on file 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 Gender Identity Female 06/12/2023 3:27 PM CDT [...] on filedocumented in this encounter Care Teams Fountain Waitress/Waiter Relationship Specialty Start Date End Date Jesus Gonzalez DO [address] [place] [address] PCP - General Family Medicine 10/26/21 02/07/23 Odilon Vyas MD [address] [place] [id number] PCP - General Family Medicine 02/08/23 02/07/24 Xiomara Carlos MD [address] [place] [id number] PCP - General Psychiatry 02/08/24 03/23/24 Odilon Vyas MD [address] [place] [id number] PCP - General Family Medicine 03/24/24 08/12/24 Unknown, Notinfile PCP - General 08/13/24 08/26/24 Kassandra Hooks NP PCP - General Nurse Practitioner 08/27/24 Lucho Peralta MD [address] [place] [id number] Referring Physician Otolaryngology 12/07/23 documented as of this encounter
--- OUTSIDE RECORDS SUMMARY | 2025-07-29 19:48 | XMS_ITS | Encounter Summary ---
Author Organization [facility] Address [address] [place] [address] Phone Care Team Providers Care Patrol Officer Name Role Phone Jesus Gonzalez DO Primary Care Provider Odilon Vyas MD Primary Care Provider + [phone] Lucho Peralta MD Unavailable Xiomara Carlos MD Primary Care Provider [phone] Odilon Vyas MD Primary Care Provider + [phone] Unknown, Notinfile Primary Care Provider Unavail able Kassandra Hooks NP Primary Care Provider + Encounter Details Date Type Department Care Team (Latest Contact Info) Description 08/16/2015 Orders Only [facility] Chasity Borjas, CARMINA [address] [facility] [address] [place], [place] [id number] Social History Tobacco Use Types Packs/Day Years Used Date Smoking Tobacco: Never Assessed Comments Unknown Sex and Gender Information Value Date Recorded Sex Assigned at Not on file 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 Gender Identity Female 06/12/2023 3:27 PM CDT [...] on filedocumented in this encounter Care Teams Patrol Officer Relationship Specialty Start Date End Date Jesus Gonzalez DO [address] [place] [address] PCP - General Family Medicine 10/26/21 02/07/23 Odilon Vyas MD [address] [place] [address] PCP - General Family Medicine 02/08/23 02/07/24 Xiomara Carlos MD [address] [place] [address] PCP - General Psychiatry 02/08/24 03/23/24 Odilon Vyas MD [address] [place] [id number] PCP - General Family Medicine 03/24/24 08/12/24 Unknown, Notinfile PCP - General 08/13/24 08/26/24 Kassandra Hooks NP PCP - General Nurse Practitioner 08/27/24 Lucho Peralta MD [address] [place] [address] Referring Physician Otolaryngology 12/07/23 documented as of this encounter
--- OUTSIDE RECORDS SUMMARY | 2025-07-29 19:48 | XMS_ITS | Clinical Summary ---
Author Organization [facility] Address [address] [place] [address] Care Team Providers Care Employment Representative Name Role Phone Lucho Peralta MD Unavailable Kassandra Hooks NP Primary Care Provider + Allergies Active Allergy Reactions Criticality Noted Date Comments Amoxicillin-Pot Clavulanate Other (See comments) Low 02/06/2023 Makes Crohn's flare up Sulfamethoxazole-Trime thoprim Other (See comments) Low 02/06/2023 Makes Crohn's flare up Hydrocodone-Acetaminop hen Nausea And Vomiting Medium 05/29/2016 [place] Latex Itching High 08/10/2016 Silver Blisters,Other (See comments) High 07/19/2023 Tegaderm dressing- used with PICC line (termite control representative is when she had reaction) Sulfa Other [...] 40 mg tabletIndications: Generalized Anxiety Disorder,Started in [place] r/t anxiety and nerves/ chronic pain Take 1 tablet (40 mg total) by mouth nightly 023 Active cyanocobalamin (Vitamin B-12) 1,000 mcg sublingual tabletIndications: Prevention of Vitamin B12 Deficiency Take 1 tablet (1,000 mcg total) by mouth supervisor phosphorus processing before breakfast No particular days Active turmeric [...] oxyCODONE-acetamin ophen (PERCOCET) 10-325 mg per tablet 025 Active Humira Pen 40 mg/0.8 mL pen injector kitIndications:Offset Printing Pressmen hn's Disease Inject 0.8 mL (40 mg total) under the skin every 7 days Sundays each 025 Active mercaptopurine (PURINETHOL) 50 mg tabletIndications: Crohn's Disease Take 1 tablet (50 mg total) by mouth daily Safety Labs due: 06/2025 30 tablet 2 025 Active tiZANidine (ZANAFLEX) 2 mg tablet TAKE ONE TABLET BY MOUTH EVERY SIX HOURS NEEDED FOR MUSCLE SPASM 120 tablet 025 Active hydrocortisone 2.5 % creamIndications:P rurigo nodularis Apply to aa on face and itchy spots BID 30 g 3 025 Active plecanatide (Trulance) 3 mg tabletIndications: Other constipation Take 1 tablet (3 mg total) by mouth daily Please update office on your symptoms in 1 week. 30 tablet 1 025 Active predniSONE (DELTASONE) 5 mg tablet TAKE A HALF TABLET BY MOUTH DAILY PATCH NEEDS APPOINTMENT BEFORE MORE REFILLS 15 tablet 025 Active predniSONE (DELTASONE) 5 mg tablet Take 0.5 tablets (2.5 mg) by mouth daily 15 tablet 025 2024 Discontinued linaCLOtide (LINZESS) 145 mcg capsule Take 1 [...] 11/13/2023 Assessment & Plan (11/13/2023 4:00 PM RECORDING STUDIO SET UP WORKER): PO2W cataract extraction (CE)/posterior chamber intraocular lens [...] cataracts both eyes (OU) secondary to termite control representative prednisone usage +1D otc readers for distance [...] referral. - We will have MRE from [facility] read by our radiologists. Assessment & Plan (02/06/2023 12:22 PM CDT): MRE on 12/08/22 showed cystic lesions of the pancreas measuring up to 6mm. The patient only had an image of the impression of this report, and we do not have access to the report or study itself. - Patient has given authorization to release MRE report from [facility]. We will also obtain the [...] her abdominal pain on recent MRE at [facility]. We will obtain this study [...] Surgeries: ileocolic resection in [address] [facility] - 6 inches of small bowel [...] the IC valve, prompting ileocolic resection ([facility]) - 6 [address] Path incidentally [...] the IC valve, prompting ileocolic resection ([facility]) - 6 [address] Path incidentally [...] the IC valve, prompting ileocolic resection ([facility]) - 6 inches resected. Path incidentally [...] dose. Assessment & Plan (10/23/2022 11:27 AM RECORDING STUDIO SET UP WORKER): Diagnosis in 2014. Humira since Mar, 2016. [...] by patient yet. -recent blood work from [facility] reviewed. Noted to have urinalysis, [...] continue. Assessment & Plan (09/25/2022 10:44 AM RECORDING STUDIO SET UP WORKER): Diagnosis in 2014. Humira since Mar, 2016. [...] d/c to be admitted to [facility] work her up further. Talking to [...] Encounters Date Type Department Care Team Description 07/28/2025 11:50 AM CDT Lab [facility] ([facility]) [facility] [place] [address] Crohn's disease of both small and large intestine with other complication 07/28/2025 11:00 AM CDT - 07/28/2025 11:59 PM CDT Hospital [facility] ([facility]) [address] [place] [address] Arthralgia, unspecified joint Discharge Disposition: Discharge to home or self care 07/24/2025 Telephone [facility] [address] [facility] Floor 6 [place] [address] Daphney Nance RN 07/10/2025 Telephone [facility] at the [facility] [address] [facility] [address] [place] [address] Melvin Oneill DO Scheduling Appointments 07/08/2025 Documentation [facility] 12th [place] [address] [place] [address] Koki Garcia LPN Switch from Linzess to Trulance 06/30/2025 9:30 AM CDT Office Visit [facility] [address] [facility] [address] [place] [id number] Caty Butterfield MD PhD Prurigo nodularis (Primary Dx); Scar; History of Crohn's disease 06/29/2025 Documentation [facility] [address] [facility] Medical Office Building [address] [place] [address] Montrell Kern MD 06/26/2025 Telephone [facility] [address] [facility] 12th [place] [address] [place] [address] RodríguezDaiana mosley, RMA 06/25/2025 4:00 PM CDT Office [facility] [address] [facility] 12th [place] [address] [place] [address] Corazon Becerra NP Crohn's disease of both small and large intestine with other complication (Primary Dx); High risk medications (not anticoagulants) long-term use; Factor V deficiency (HCC); Malignant neoplasm of appendix (HCC); Chiari malformation type I (HCC) 06/23/2025 Telephone [facility] [address] [place] [address] [place] [address] Rodríguez Daiana, RMA rash 05/19/2025 Telephone [facility] [address] [place] [address] [place] [address] RodríguezDaiana mosley, RMA 05/14/2025 4:00 PM CDT Office Visit [facility] ([facility]) - [facility] [address] [place] [address] 11th [place] [address] [place] [address] Josh Hummel MD Chronic pansinusitis (Primary Dx); Chronic sinusitis, unspecified location; Recurrent epistaxis from Last 3 Months Surgical History Surgery Date Site/Laterality Comments COLONOSCOPY 05/11/2020 [place] SINUS SURGERY 09/28/2016 Successful embolization of left [...] Brother 1 Cancer Father's Brother 2 Cameron [place] Hearing loss Father's Brother 2 Cameron Jr. [...] Maternal Grandfather Samaria Maternal Grandmother Seble Mother Harika-Bello Mother's Brother 1 Tommie Mother's Brother 2 Josh Mother's Brother 3 Sal Mother's Brother 4 Hank Mother's Brother 5 Redd Mother's Sister 1 Karin Mother's Sister 2 Xochitl Almeida Alive Paternal Grandfather Cameron Sr. Paternal Grandmother Lin [...] on file Legal Sex Female 10:13 AM RECORDING STUDIO SET UP WORKER Gender Identity Female 06/12/2023 3:27 PM [...] as needed Medical Devices Implanted Type Area Dispatcher Relay Device Identifier Shelf Expiration Date Model / Serial / Lot [employer] Lens Iol Cna0t0.230 Clareon Uva Autonom Cna0t0.230 - [id number] - [id number] Implanted:Qty: 1 on 10/29/2023 by Melvin San MD at [facility] Left: Eye [employer] [id number] 06/25/2026 CNA0T0.23 0 / [id number] / Procedures Procedure Name Priority Date/Time Associated Diagnosis Comments XR SPINE THORACIC 4 OR MORE VIEWS Routine 07/28/2025 11:26 AM CDT Arthralgia, unspecified joint XR SPINE CERVICAL W FLEXION AND EXTENSION 4 VIEWS Routine 07/28/2025 11:26 AM CDT Arthralgia, unspecified joint XR SPINE LUMBAR COMPLETE 4 OR MORE VIEWS Routine 07/28/2025 11:26 AM CDT Arthralgia, unspecified joint XR SACROILIAC JOINTS 3 OR MORE VIEWS Routine 07/28/2025 11:26 AM CDT Arthralgia, unspecified joint CRP (ACUTE PHASE) Routine 07/28/2025 10: 50 AM CDT Crohn's disease of both small and large intestine with other complication COLONOSCOPY 02/11/2025 9:[address] LUNG CANCER SCREENING Schedule Routine, Read Routine (OP Routine) 10/13/2024 4:36 PM RECORDING STUDIO SET UP WORKER Nicotine dependence, cigarettes, in remission from Last 3 Months or Most Recently Relevant to Health Maintenance Results * XR Spine Cervical W Flexion And [...] IM XR PROCEDURES Final Result * XR Sacroiliac [...] IMG XR PROCEDURES Final Result * XR Spine Thoracic 4 Or More [...] MD IMG XR PROCEDURES Final Result * CRP (acute phase) (07/28/2025 10:50 AM CDT) CRP 1.9 <=10.0 mg/L Blood 07/28/2025 10:5 0 AM CDT 07/28/2025 11:26 AM CDT Corazon Becerra SLACK LINE YARDER LAB BLOOD ORDERABLES Final Result [facility] [place] [address] * Colonoscopy (02/11/2025 9:16 AM CDT) Anatomical Region Laterality Modality Other Narrative Procedure Note Montrell Kern MD - 02/11/2025 9:16 AM CDT ENDOSCOPY LAB Patient Name: Danette Thomas Procedure Date: 02/11/2025 9:16 AM Date of : 1970 Admit Type: Outpatient Age: 54 Gender: Female Attending MD: Montrell Kern M.D. Room: [facility] ENDOSCOPY ROOM 05 Note Status: Finalized [...] The scope was passed under direct vision.The [id number] was introduced through the anusand advanced to [...] histology. There was evidence of a prior qgzk-[id number] ileo-colonic anastomosisin the ascending colon. This was [...] to quiescent Crohn's disease. Biopsied. - Patent [id number] ileo-colonic anastomosis, characterized by healthy appearing mucosa.Biopsied. [...] business hours - Please call theNurse Coordinator: [phone]. After hours, evening, nights, weekends and holidays- Please call the hospital envelope machine operator at and ask for the GI fellow brickmason contractor. Attending Participation: I personally performed the entire procedure. Electronically signed by Montrell Kern MD Montrell Kern M.D. 02/11/2025 10:11:17 AM Number of Addenda: 0 Note Initiated On: 02/11/2025 9:16 AM Montrell Kern MD ENDOSCOPY PROCEDURES Final Resul t * CT Lung Cancer Screening (10/13/2024 4:36 PM RECORDING STUDIO SET UP WORKER) Anatomical Region Laterality Modality Chest N/A Computed Tomogra phy 10/17/2024 8:06 AM RECORDING STUDIO SET UP WORKER Narrative 10/17/2024 8:07 AM RECORDING STUDIO SET UP WORKER EXAM DESCRIPTION: CT LUNG CANCER SCREENING REASON [...] David Ortiz M.D. SN: SN Report ID: [id number] Reading Location: [id number] Procedure Note David Ortiz MD - 10/17/2024 [...] David Ortiz M.D. SN: SN Report ID: [id number] Reading Location: [id number] Zia Hearn DO IMG CT PROCEDURES Final R esult from Last 3 Months or Most Recently Relevant to Health Maintenance [place] For more information, please contact: [phone] * Full Code (Latest Code Status on File) Date Activated Date Inactivated Comments 02/11/2025 8:23 AM 02/11/2025 2:57 PM * Full Code Date Activated Date Inactivated Comments 03/14/2023 9:25 AM 03/14/2023 4:21 PM Care Teams Employment Representative Relationship Specialty Start Date End Date Kassandra Hooks NP PCP - General Nurse Practitioner 08/27/24 Lucho Peralta MD Referring Physician Otolaryngology 12/07/23
--- OUTSIDE RECORDS SUMMARY | 2025-07-29 19:48 | XMS_ITS | Patient Health Record ---
Author Organization Fabian Noe MD Address [address] [address] Care Team Providers Care Anesthesiologist Assistant Name Role Phone Fabian Noe Unavailable Reason [...] Insured Coverage Start Date Coverage End Date [facility] [address] [address] [place] [address] [id number] Danette Thomas Self - patient is the insured 4 Medical (General) History Medical History History ICD Code Rash Tendinitis NOS Ulcer of skin NOS
--- OUTSIDE RECORDS SUMMARY | 2025-07-29 19:48 | XMS_ITS | Encounter Summary ---
Author Organization [facility] Address [address] [place] [address] Phone Care Team Providers Care Account Officer Name Role Phone Jesus Gonzalez DO Primary Care Provider Odilon Vyas MD Primary Care Provider + [phone] Lucho Peralta MD Unavailable Xiomara Carlos MD Primary Care Provider [phone] Odilon Vyas MD Primary Care Provider + -[phone] Unknown, Notinfile Primary Care Provider Unavail able Kassandra Hooks NP Primary Care Provider + Encounter Details Date Type Department Care Team (Latest Contact Info) Description 05/10/2015 Orders Only [facility] CARDIOLOG[facility] Chasity Borjas, CARMINA [address] [facility] [address] [place], [place] [id number] Social History Tobacco Use Types Packs/Day Years Used Date Smoking Tobacco: Never Assessed Comments Unknown Sex and Gender Information Value Date Recorded Sex Assigned at Not on file Legal Sex Female 10:13 AM LANDCARE FACILITATOR Gender Identity Female 06/12/2023 3:27 PM CDT [...] on filedocumented in this encounter Care Teams Account Officer Relationship Specialty Start Date End Date Jesus Gonzalez DO [address] [place] [address] PCP - General Family Medicine 10/26/21 02/07/23 Odilon Vyas MD [address] [place] [address] PCP - General Family Medicine 02/08/23 02/07/24 Xiomara Carlos MD [address] [place] [address] PCP - General Psychiatry 02/08/24 03/23/24 Odilon Vyas MD [address] [place] [address] PCP - General Family Medicine 03/24/24 08/12/24 Unknown, Notinfile PCP - General 08/13/24 08/26/24 Kassandra Hooks NP PCP - General Nurse Practitioner 08/27/24 Lucho Peralta MD [address] [place] [address] Referring Physician Otolaryngology 12/07/23 documented as of this encounter
--- OUTSIDE RECORDS SUMMARY | 2025-07-29 19:48 | XMS_ITS ---
Author Organization [facility] Address [address] [place] [address] Care Team Providers Care Interlocking And Signal Mechanic Name Role Phone Lucho Peralta MD Unavailable [...] 11/13/2023 Assessment & Plan (11/13/2023 4:00 PM MEDIA SPECIALIST): PO2W cataract extraction (CE)/posterior chamber intraocular lens [...] (PSC) cataracts both eyes (OU) secondary to mcc prednisone usage +1D otc readers for distance [...] dose. Assessment & Plan (10/23/2022 11:27 AM MEDIA SPECIALIST): Diagnosis in 2014. Humira since Mar, 2016. [...] by patient yet. -recent blood work from [facility] reviewed. Noted to have urinalysis, CBC, [...] continue. Assessment & Plan (09/25/2022 10:44 AM MEDIA SPECIALIST): Diagnosis in 2014. Humira since Mar, 2016. [...] today -Talked to her GI group at [facility] Dr Torres on-call, suggested if pt is stable to d/c to be admitted to [facility] work her up further. Talking to [...]
--- OUTSIDE RECORDS SUMMARY | 2025-07-29 19:48 | XMS_ITS | Encounter Summary ---
Author Organization [facility] Address [address] [place] [address] Phone Care Team Providers Care Hydroelectric Plant Maintainer Name Role Phone Jesus Gonzalez DO Primary Care Provider Odilon Vyas MD Primary Care Provider + [phone] Lucho Peralta MD Unavailable Xiomara Carlos MD Primary Care Provider [phone] Odilon Vyas MD Primary Care Provider + [phone] Unknown, Notinfile Primary Care Provider Unavail able Kassandra Hooks NP Primary Care Provider + Encounter Details Date Type Department Care Team (Latest Contact Info) Description 08/21/2015 Orders Only [facility] CARDIOLOGY Chasity Borjas, CARMINA [address] [facility] [address] [place], [place] [id number] Social History Tobacco Use Types Packs/Day Years Used Date Smoking Tobacco: Never Assessed Comments Unknown Sex and Gender Information Value Date Recorded Sex Assigned at Not on file 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 Sex Female 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 Gender Identity Female 06/12/2023 3:27 PM CDT [...] on filedocumented in this encounter Care Teams Hydroelectric Plant Maintainer Relationship Specialty Start Date End Date Jesus Gonzalez DO [address] [place] [address] PCP - General Family Medicine 10/26/21 02/07/23 Odilon Vyas MD [address] [place] [address] PCP - General Family Medicine 02/08/23 02/07/24 Xiomara Carlos MD [address] [place] [address] PCP - General Psychiatry 02/08/24 03/23/24 Odilon Vyas MD [address] [place] [address] PCP - General Family Medicine 03/24/24 08/12/24 Unknown, Notinfile PCP - General 08/13/24 08/26/24 Kassandra Hooks NP PCP - General Nurse Practitioner 08/27/24 Lucho Peralta MD [address] [place] [address] Referring Physician Otolaryngology 12/07/23 documented as of this encounter
--- OUTSIDE RECORDS SUMMARY | 2025-07-29 19:48 | XMS_ITS | Encounter Summary ---
Author Organization [facility] Address [address] [place] [address] Phone Care Team Providers Care Biofuels Engineering Manager Name Role Phone Jesus Gonzalez DO Primary Care Provider Odilon Vyas MD Primary Care Provider + [phone] Lucho Peralta MD Unavailable Xiomara Carlos MD Primary Care Provider [phone] Odilon Vyas MD Primary Care Provider + [phone] Unknown, Notinfile Primary Care Provider Unavail able Kassandra Hooks NP Primary Care Provider + Encounter Details Date Type Department Care Team (Latest Contact Info) Description 08/17/2015 Orders Only [facility] CARDIOLOGY Chasity Borjas, CARMINA [address] [facility] [address] [place], [place] [id number] Social History Tobacco Use Types Packs/Day Years Used Date Smoking Tobacco: Never Assessed Comments Unknown Sex and Gender Information Value Date Recorded Sex Assigned at Not on file Legal Sex Female 10:13 AM HEALTH SCIENCES DEAN Gender Identity Female 06/12/2023 3:27 PM CDT [...] on filedocumented in this encounter Care Teams Biofuels Engineering Manager Relationship Specialty Start Date End Date Jesus Gonzalez DO [address] [place] [address] PCP - General Family Medicine 10/26/21 02/07/23 Odilon Vyas MD [address] [place] [address] PCP - General Family Medicine 02/08/23 02/07/24 Xiomara Carlos MD [address] [place] [address] PCP - General Psychiatry 02/08/24 03/23/24 Odilon Vyas MD [address] [place] [address] PCP - General Family Medicine 03/24/24 08/12/24 Unknown, Notinfile PCP - General 08/13/24 08/26/24 Kassandra Hooks, EDWIGE PCP - General Nurse Practitioner 08/27/24 Lucho Peralta MD [facility] [place] [address] Referring Physician Otolaryngology 12/07/23 documented as of this encounter
--- OUTSIDE RECORDS SUMMARY | 2025-07-29 19:48 | XMS_ITS | Clinical Summary ---
Author Organization [facility] Address [address] [place] [address] Care Team Providers Care Conference Concierge Name Role Phone EstelaranjithJesus mena Primary Care Provider [phone] Allergies Active Allergy Reactions Criticality Noted Date Comments Hydrocodone-Acetaminop hen Other (See Comments),Nausea and Vomiting High 05/29/2016 [place] Latex Itching High 08/10/2016 Lidocaine-Transparent Dressing Itching [...] on file Legal Sex Female 12:04 PM LABOR RELATIONS MANAGER Gender Identity Not on file Sexual [...] Sig/CT Colonography Q [address] [place] [address] [place] [address] PREFERRED Care Teams Conference Concierge Relationship Specialty Start Date End Date Jesus Gonzalez DO [address] [place] [address] PCP - General Family Practice 01/17/22
--- OUTSIDE RECORDS SUMMARY | 2025-07-29 19:48 | XMS_ITS | Encounter Summary ---
Author Organization [facility] Address [address] [place] [address] Phone Care Team Providers Care Sheet Rocker Name Role Phone Jesus Gonzalez DO Primary Care Provider Odilon Vyas MD Primary Care Provider + [phone] Lucho Peralta MD Unavailable Xiomara Carlos MD Primary Care Provider [phone] Odilon Vyas MD Primary Care Provider + [phone] Unknown, Notinfile Primary Care Provider Unavail able Kassandra Hooks NP Primary Care Provider + Encounter Details Date Type Department Care Team (Latest Contact Info) Description 08/02/[address] [facility] CARDIOLOGY Chasity Borjas, CARMINA [address] [facility] [address] [place], [place] [id number] Social History Tobacco Use Types Packs/Day Years Used Date Smoking Tobacco: Never Assessed Comments Unknown Sex and Gender Information Value Date Recorded Sex Assigned at Not on file Legal Sex Female 10:13 AM MANAGER OF CHANGE Gender Identity Female 06/12/2023 3:27 PM CDT [...] on filedocumented in this encounter Care Teams Sheet Rocker Relationship Specialty Start Date End Date Jesus Gonzalez DO [address] [place] [address] PCP - General Family Medicine 10/26/21 02/07/23 Odilon Vyas MD [address] [place] [address] PCP - General Family Medicine 02/08/23 02/07/24 Xiomara Carlos MD [address] [place] [address] PCP - General Psychiatry 02/08/24 03/23/24 Odilon Vyas MD [address] [place] [address] PCP - General Family Medicine 03/24/24 08/12/24 Unknown, Notinfile PCP - General 08/13/24 08/26/24 Kassandra Hooks NP PCP - General Nurse Practitioner 08/27/24 Lucho Peralta MD [address] [place] [address] Referring Physician Otolaryngology 12/07/23 documented as of this encounter
--- OUTSIDE RECORDS SUMMARY | 2025-07-29 19:48 | XMS_ITS | Encounter Summary ---
Author Organization [facility] Address [address] [place] [address] Care Team Providers Care Encapsulator Name Role Phone Odilon Vyas MD Primary Care Provider [phone] Lucho Peralta MD Unavailable Xiomara Carlos MD Primary Care Provider [phone] Odilon Vyas MD Primary Care Provider [phone] Unknown, Notinfile Primary Care Provider Unavail able Kassandra Hooks NP Primary Care Provider + Encounter Details Date Type Department Care Team (Late st Contact Info) Description 01/18/2024 Telephone [facility] [address] [address], [address] [place] [address] Massimo Glynn MD [address] [address] Social History Tobacco Use Types Packs/Day Years [...] on file Legal Sex Female 10:13 AM ELECTRICAL UNIT REBUILDER Gender Identity Female 06/12/2023 3:27 PM CDT [...] on filedocumented in this encounter Care Teams Encapsulator Relationship Specialty Start Date End Date Odilon Vyas MD [address] [place] [address] PCP - General Family Medicine 02/08/23 02/07/24 Xiomara Carlos MD [address] [place] [address] PCP - General Psychiatry 02/08/24 03/23/24 Odilon Vyas MD [address] [place] [address] PCP - General Family Medicine 03/24/24 08/12/24 Unknown, Notinfile PCP - General 08/13/24 08/26/24 Kassandra Hooks NP PCP - General Nurse Practitioner 08/27/24 Lucho Peralta MD [address] [place] [address] Referring Physician Otolaryngology 12/07/23 documented as of this encounter
--- OUTSIDE RECORDS SUMMARY | 2025-07-29 19:48 | XMS_ITS | Encounter Summary ---
Author Organization [facility] Healthcare Address [address] [place] [address] Care Team Providers Care Shrimp Header Name Role Phone Odilon Vyas MD Primary Care Provider [phone] Lucho Peralta MD Unavailable Xiomara Carlos MD Primary Care Provider [phone] Odilon Vyas MD Primary Care Provider [phone] Unknown, Notinfile Primary Care Provider Unavail able Kassandra Hooks NP Primary Care Provider + Encounter Details Date Type Department Care Team (Late st Contact Info) Description 01/21/2024 Telephone [facility] [address] [address], [address] [place] [address] Massimo Glynn MD [address] [address] Social History Tobacco Use Types Packs/Day Years [...] on file Legal Sex Female 10:13 AM RIVET DRIVER Gender Identity Female 06/12/2023 3:27 PM [...] on filedocumented in this encounter Care Teams Shrimp Header Relationship Specialty Start Date End Date Odilon Vyas MD [address] [place] [address] PCP - General Family Medicine 02/08/23 02/07/24 Xiomara Carlos MD [address] [place] [address] PCP - General Psychiatry 02/08/24 03/23/24 Odilon Vyas MD [address] [place] [address] PCP - General Family Medicine 03/24/24 08/12/24 Unknown, Notinfile PCP - General 08/13/24 08/26/24 Kassandra Hooks NP PCP - General Nurse Practitioner 08/27/24 Lucho Peralta MD [address] [place] [address] Referring Physician Otolaryngology 12/07/23 documented as of this encounter
--- OUTSIDE RECORDS SUMMARY | 2025-07-29 19:49 | XMS_ITS | Patient Health Record ---
Author Organization [facility] Address [address] [facility] [address] [place] [address] Care Team Providers Care Popcorn Machine Operator Name Role Phone [place] Kassandra PEÑA Primary Care Provider Kiah Puentes Unavailable [phone] Tiara Rodrigues Unavailable [phone] Allergies Allergen (clinical drug ingredient) Drug/Non Drug [...] Severe recurrent major depression without psychotic features ([id number]) Major depressive disorder, recurrent severe without psychotic features (F33.2) Active confirmed Problem Anger reaction ([id number]) Anger reaction (R45.4) Active confirmed Encounters Encounter Location Date Provider Diagnosis [facility] [address] [place] [address] [place] [address] 10/21/2024 Kiah Hyde [facility] [email or web address] [facility] [address] [place] [address] 11/04/2024 Tiara Rodrigues Anger reaction R45.4 and Major depressive disorder, recurrent severe without psychotic features F33.2 [facility] [employer] [facility], [facility] [address] [place] [address] 12/08/2024 Tiarastephanie Rodrigues Major depressive disorder, recurrent severe without psychotic features F33.2 and Anger reaction R45.4 [facility] [employer] [facility], [address] [address] [place] [address] 12/16/2024 Tiara Ronaldliter [facility] [employer] [facility], [address] [address] [place] [address] 12/18/2024 Tiarastephanie Rodrigues Major depressive disorder, recurrent severe without psychotic features F33.2 and Anger reaction R45.4 [facility] [employer] [facility], [employer] [address] [place] [address] 12/25/2024 Tiara Rodrigues Major depressive disorder, recurrent [...] for medication review. 7. Potential Need for Fdc - Explore the patient's concerns about returning home and interest in long term options. - Provide information on community resources including providing a flyer for the [facility]. Follow-up: - Schedule a follow-up appointment to [...] for medication review. 7. Potential Need for Fdc - Explore the patient's concerns about returning home and interest in long term options. - Provide information on community resources including providing a flyer for the [facility]. Follow-up: - Schedule a follow-up appointment to [...] and Alexa to maintain consistent communication with [facility]'s teachers and school staff. Recommend [...] and Alexa to maintain consistent communication with [facility]'s teachers and school staff. Recommend [...] Start Date Coverage End Date [address] [place] [address] [id number] Danette Thomas Self - patient is the insured Medical (General) History Medical History History ICD Code A'Fib Crohn's Disease DM Hx of CVA Hx of TIA Insomnia Portal HTN
--- OUTSIDE RECORDS SUMMARY | 2025-07-29 19:49 | XMS_ITS | Clinical Summary ---
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
--- OUTSIDE RECORDS SUMMARY | 2025-07-29 19:49 | XMS_ITS | Encounter Summary ---
Author Organization [facility] Address [address] [place] [address] Phone Care Team Providers Care Light Bulb Replacer Name Role Phone Lucho Peralta MD Unavailable Odilon Vyas MD Primary Care Provider [phone] Unknown, Notinfile Primary Care Provider Unavail able Kassandra Hooks NP Primary Care Provider + Encounter Details Date Type Department Care Team (Late st Contact Info) Description 06/24/2024 Orders Only [facility] Medicine Gastroenterology [address] [facility] [address], [address] [place] [address] Irma Dillon MD [address] [place] [address] Social History Tobacco Use Types [...] on file 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
[2025-07-29 21:13] LABS: Hematocrit 35.9 % (35.0-49.0); Hemoglobin 12.1 g/dL (12.0-15.0); Mean Corpuscular HGB Conc 33.7 g/dL (32-36); Mean Corpuscular Hemoglobin 33.7 pg (27.0-31.0); Mean Corpuscular Volume 100.0 fL (78.0-102.0); Platelet Count Result 208 K/mm3 (150-420); Red Blood Count 3.59 M/mm3 (4.20-5.40); White Blood Count 4.7 K/mm3 (4.8-10.8)
--- NOTE | 2025-07-29 21:13 | PC.NURSE ---
patient took home medications of Eliquis, tizanidine and chemo maintenance medication. ERP aware and ok with patient taking her home medications.
[2025-07-29 21:23] LABS: Alanine Aminotransferase 25 U/L (6-35); Albumin Level 3.8 g/dL (3.5-5.1); Alkaline Phosphatase 63 U/L (38-126); Anion Gap 7 mmol/L (4-12); Aspartate Amino Transferase 30 U/L (14-36); Bilirubin,Total 0.5 mg/dL (0.2-1.3); Blood Urea Nitrogen 10 mg/dL (7-17); Calcium 9.1 mg/dL (8.4-10.2); Carbon Dioxide 25 mmol/L (22-30); Chloride 107 mmol/L (98-107); Estimated CRCL calculation 75 ml/min; Estimated Glomerular Filt Rate > 60; Glucose 92 mg/dL (65-110); Lipase 73 U/L (23-300); Osmolality Calculated 287 mOsm/kg (285-295); Potassium 3.9 mmol/L (3.4-5.0); Sodium 139 mmol/L (137-145); Total Protein 6.4 g/dL (6.3-8.2)
[2025-07-29 21:50] LABS: Band Neutrophils Percent 0 % (0-6); Eosinophils Absolute Manual 0.28 K/mm3 (0.02-0.50); Eosinophils Percent Manual 6 % (1-6); Lymphocytes Absolute Manual 2.49 K/mm3 (1.1-4.5); Lymphocytes Percent Manual 53 % (18-44); Monocytes Absolute Manual 0.09 K/mm3 (0.1-0.90); Monocytes Percent Manual 2 % (3-9); Neutrophils Absolute Manual 1.83 K/mm3 (1.3-6.7); Neutrophils Percent Manual 39 % (46-73); Total Cells Counted 100
[2025-07-29 21:51] LABS: Anisocytosis 2+; Poikilocytosis 1+; Schistocytes None Seen
[2025-07-29 22:05] LABS: Add Urine Microscopic? NO; Appearance Urine Clear (Clear); Glucose Urine UA Negative (Negative); Leukocyte Esterase Ur Negative LEU/UL (Negative); Nitrate Urine Negative (Negative); Specific Grav Ur 1.010 (1.010-1.020)
--- NOTE | 2025-07-29 22:29 | PC.NURSE ---
Patient singing loudly in room about how [facility] is a [facility] shit and the doctor expects her to just go home and take more narcotics for her pain and that we did nothing to help her. Patient walked out of ED before signing any of her DC paperwork at this time.
== END 2025-07-29 22:32 | disposition home or self-care (01) ==
PROVIDERS: Emergency Provider Internal Medicine Critical Care Medicine; PCP Nurse Practitioner Family
DX: R19.09 Other intra-abdominal and pelvic swelling, mass and lump (principal); K50.90 Crohn's disease, unspecified, without complications; R10.31 Right lower quadrant pain; I48.91 Unspecified atrial fibrillation; D68.51 Activated protein C resistance; Z87.891 Personal history of nicotine dependence; Z86.73 Personal history of transient ischemic attack (TIA), and cerebral infarction without residual deficits; Z86.718 Personal history of other venous thrombosis and embolism; Z79.01 Long term (current) use of anticoagulants
CPT/HCPCS: 36415; 80053; 81003; 83605; 83690; 85025; 99283

== ENCOUNTER 2025-09-22 14:23 | Outpatient (CLI) | payer BC, SELFPAY ==
--- OUTSIDE RECORDS SUMMARY | 2016-01-18 09:45 | XMS_ITS | Continuity of Care Document ---
Author Organization [facility] Address [address] [place] [address] Phone Care Team Providers Care Seam Steamer Name Role Phone Lorrie HUYNH, Meeta Unavailable Unavailable Advance Directives Directive Yes / No Effective Date File Name No Information Encounters Encounter Description Practice Location Reason(s) For Visit Diagnoses Date Provider Providers Copied on Encounter [facility], [facility], [address], [place] tel:[phone] [facility] No Information Lorrie Tim. [address] [place], [place], [address], [place]. tel:[phone] Family History Family Member Type Diagnosis Age At Onset Mother Problem (finding) malignant neoplasm of l kaitlyner Father Problem (finding) hypertension Payers Payer name Insurance type Covered republican ID Authoriza tion(s) [facility] Ppo/EPO BL [id number] Social History Type Description Quantity Date Captured Comments Sex Female Smoking Status No Information Chief Complaint And Reason For Visit No Information Reason For Referral Reason For Referral No Information History Of Present Illness Encounter Date Complaint History Of Prese nt Illness No Information Functional Status Date Functional Assessmen t No Information Instructions Date Instruction Additional Infor mation No Information Assessments Type Assessment Date No Information Patient Care Teams Name Effective Dates (start - stop) Status Members No Information
--- OUTSIDE RECORDS SUMMARY | 2016-10-11 06:00 | XMS_ITS | Continuity of Care Document ---
Author Organization [facility] Address [address] [place] [address] Phone Care Team Providers Care Logging Equipment Mechanic Name Role Phone Zahira Isbell MD Unavailable Unavailable Procedures Procedure Date Electrocardiogram report Advance Directives Directive Yes / No Effective Date File Name No Information Encounters Encounter Description Practice Location Reason(s) For Visit Diagnoses Date Provider Providers Copied on Encounter [facility], [address], [place], [place], [address], [place] tel:[phone] [facility] No Information 6 Sukhi Rodriges. [address] [place] [address], [facility], [place]. tel:[phone] Family History Family Member Type Diagnosis Age At Onset No Information Payers Payer name Insurance type Covered republican ID Authoriza tion(s) [facility] PPO BL [id number] Social History Type Description Quantity Date Captured [...]
--- OUTSIDE RECORDS SUMMARY | 2025-09-22 13:30 | XMS_ITS | Encounter Summary ---
Author Organization [facility] Address [address] [place] [address] Care Team Providers Care Monument Setter Helper Name Role Phone RodrigoJesus mena Primary Care Provider [phone] Reason for Referral * MRI (Urgent) - Pending Review Specialty Diagnoses / Procedures Referred By Fernando bowman Referred To Contact Diagnoses Ovarian tumor Procedures MRI PELVIS W WO CONTRAST Roni Tracy MD [address] [place] [address] Phone: tel: fax: [place] [address] Phone: tel: fax: Referral ID Status Reason Start Date Expiration Date Visits Requested Visits Authorized [id number] Pending Review [facility] CTS 09/22/2025 10/23/2026 1 1 NG PATTERN LAYOUT TECHNICIAN Reason for Visit * Reason Comments Establish Care Cancer Encounter Details Date Type Department Care Team (Late st Contact Info) Description 09/22/2025 1:30 PM SEWING PATTERN LAYOUT TECHNICIAN Office Visit [facility] Oncology and Hematology - [address] [facility] [facility] [address] [place] [address] Roni Tracy MD [address] [place] [address] Malignant neoplasm of appendix (CMS/HCC) (Primary Dx); Ovarian tumor Social History Tobacco Use Types Packs/Day Years Used Date Smoking Tobacco: Former Cigarettes 2 25 1 - 09/16/2015 Smokeless Tobacco: Never Alcohol Use Standard Drinks/Week Comments Never 0 (1 standard drink = 0.6 oz pur e alcohol) Comments Unknown Sex and Gender Information Value Date Recorded Sex Assigned at Not on file Legal Sex Female 12:04 PM SEWING PATTERN LAYOUT TECHNICIAN Gender Identity Not on file Sexual Orientation Not on file documented as of this encounter Last Filed Vital Signs Vital Sign Reading Time Taken Comments Blood Pressure 113/68 09/22/2025 1:51 PM SEWING PATTERN LAYOUT TECHNICIAN Pulse 68 09/22/2025 1:51 PM SEWING PATTERN LAYOUT TECHNICIAN Temperature 36.3 C (97.3 F) 09/22/2025 1:51 PM SEWING PATTERN LAYOUT TECHNICIAN Respiratory Rate 16 09/22/2025 1:51 PM SEWING PATTERN LAYOUT TECHNICIAN Oxygen Saturation 98% 09/22/2025 1:51 PM SEWING PATTERN LAYOUT TECHNICIAN Inhaled Oxygen Concentration - - Weight 75.5 kg (166 lb 6.4 oz) 09/22/2025 1:51 P M SEWING PATTERN LAYOUT TECHNICIAN Height 165.1 cm (5' 5) 09/22/2025 1:51 PM SEWING PATTERN LAYOUT TECHNICIAN Body Mass Index 27.69 09/22/2025 1:51 PM SEWING PATTERN LAYOUT TECHNICIAN documented in this encounter Progress Notes * Roni Tracy MD - 09/22/2025 2:11 PM CST Hematology-oncology consult Note Requesting Physician Primary Care Physician Jesus Gonzalez, DO Problem list Patient Active Problem List Diagnosis Code Malignant neoplasm of appendix (CMS/HCC) C18.1 Previous TREATMENT ? Measurable Disease ? Reason for Visit Danette Thomas is a 54 y.o. female who was referred for consultation for ovarian mass and carcinomatosis. History of present illness This is a 54-year-old female with history of Crohn disease diagnosed in 2013 status post resection of the Crohn disease in May 2019. 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 Patient was last seen in the office in February 2022. Patient had CTA chest PE protocol done on July 24, 2025 due to shortness of breath and abdominal discomfort that showed chronic pulmonary embolism with mesenteric and peritoneal stranding with nodularity concerning for peritoneal carcinomatosis along with 3.7 cm rightadnexal mass concerning for ovarian neoplasm. She has some abdominal discomfort and right groin discomfort. Denies any weight loss. Denies any melena or hematochezia. No other new complaints. Past Medical History Past Medical History: Diagnosis Date Arnold-Chiari malformation, type I (CMS/HCC) CAD (coronary artery disease) Cancer (CMS/HCC) Depression Diabetes mellitus (CMS/HCC) HTN (hypertension) Hyperlipidemia Seizure disorder (CMS/HCC) Surgical History Past Surgical History: Procedure Laterality Date HX COLONOSCOPY 02/11/2025 HX HAND SURGERY Left HX NASAL/SINUS SURGERY HX SPINAL SURGERY Medications Current Outpatient Medications Medication Sig Dispense Refill albuterol (PROVENTIL,VENTOLIN) 2.5 mg /3 mL (0.083 %) Solution for Nebulization ALPRAZolam (XANAX) 0.5 mg tablet Take 0.5 mg by mouth. ciprofloxacin-dexAMETHasone (CIPRODEX) 0.3-0.1 % Drops, Suspension eszopiclone (LUNESTA) 3 mg Tablet Take 3 mg by mouth. hydrocortisone (HYTONE) 2.5 % Cream meclizine (ANTIVERT) 25 mg tablet Take 25 mg by mouth. mercaptopurine (PURINETHOL) 50 mg tablet Take 50 mg by mouth daily. mupirocin (BACTROBAN) 2 % Ointment ondansetron (ZOFRAN ODT) 4 mg Tablet, Rapid Dissolve oxyCODONE-acetaminophen (PERCOCET) 10-325 mg Tablet PARoxetine HCl (PAXIL) 40 mg tablet rOPINIRole (REQUIP) 1 mg tablet Take 1 mg by mouth. tiZANidine (ZANAFLEX) 2 mg Tablet ASCORBIC ACID, VITAMIN C, ORAL Take by mouth. linezolid (ZYVOX) 600 mg tablet Take 600 mg by mouth 2 times daily. saccharomyces boulardii (FLORASTOR) 250 mg Capsule Take by mouth. sucralfate (CARAFATE) 1 gram tablet Take 1 Gram by mouth 4 times daily before meals and at bedtime. SUMAtriptan (IMITREX) 50 mg tablet Take 50 mg by mouth every 2 hours as needed for Headaches. may repeat in 2 hours; max dose 200mg in 24 hours aspirin (ECOTRIN EC) 81 mg Tablet, Delayed Release (E.C.) Take 81 mg by mouth. ergocalciferol (VITAMIN D2) 50,000 unit capsule Take 50,000 Units by mouth. turmeric root extract 500 mg Capsule Take 1,000 mg by mouth. pantoprazole (PROTONIX) 40 mg Tablet, Delayed Release (E.C.) apixaban (ELIQUIS) 5 mg tablet Take 5 mg by mouth 2 times daily. No current facility-administered medications for this visit. Allergies Allergies Allergen Reactions Hydrocodone-Acetaminophen Other (See Comments) and Nausea and Vomiting Goehner Latex Itching Sulfa (Sulfonamide Antibiotics) Other (See Comments) Rectal bleeding Lidocaine-Transparent Dressing Itching Immunizations: There is no immunization history on file for this patient. Family History Family History Problem Relation Name Age of Onset Prostate Cancer Father Cancer Father Liver Cancer Mother Social History Social History Tobacco Use Smoking status: Former Current packs/day: 0.00 Average packs/day: 2.0 packs/day for 25.0 years (50.0 ttl pk-yrs) Types: Cigarettes Start date: 09/16/1990 Quit date: 09/16/2015 Years since quittin.0 Smokeless tobacco: Never Substance Use Topics Alcohol use: Never Review of Systems Constitutional: Patient did not mention fever; no night sweats; no anorexia; no weight loss; no fatique NEENT: Patient did not mention headache; no change in vision; no change in hearing; no sore throat;no dysphagia Respiratory: Patient did not mention shortness of breath; no pleuritic chest pain; no cough; no hemoptysis Cardiac: Patient did not mention cardiac-like chest pain; no palpitations; no orthopnea; no PND; noDOE Breasts: Patient did not mention tenderness; no masses GI: Right lower quadrant abdominal and right inguinal region discomfort; no nausea; no vomiting; nodiarrhea; no hematochezia; no melena : Patient did not mention dysuria; no frequency; no hesitancy; no hematuria MEMBER OF CONGRESS: Musculosketetal: Patient did not mention bone pain; no arthralgia; no joint swelling; no myalgia; Skin: Patient did not mention pruritis; no rash; no petechiae; no ecchymoses Endocrine: Patient did not mention polydipsia; no polyuria; no unusual weight gain Neuro: Patient did not mention headache; no change in vision; no sensory changes; no muscle weakness; no confusion; no seizures Psych: Patient did not mention anxiety; no depression; Physical Exam Vitals: As per nursing note Constitutional: Well developed, well nourished, no acute distress, non-toxic appearance Teeth and gum. No signs of infection or swelling. Eyes: PERRL, conjunctiva normal HEENT: Atraumatic, external ears normal, nose normal, oropharynx moist, no pharyngeal exudates. no sinus tenderness Neck- normal range of motion, no tenderness, supple Respiratory: No respiratory distress, normal breath sounds, no rales, no wheezing Cardiovascular: Normal rate, normal rhythm, no murmurs, no gallops, no rubs GI: Soft, nondistended, normal bowel sounds, nontender, no splenomegaly, no hepatomegaly, no mass, no rebound, no guarding : No costovertebral angle tenderness Musculoskeletal: No edema, no tenderness, no deformities. Back- no tenderness Integument: Well hydrated, no rash, Digits and nails inspection normal Lymphatic: No lymphadenopathy noted Neurologic: Alert & oriented x 3, CN 2-12 normal, normal motor function, normal sensory function, no focal deficits noted Psychiatric: Speech and behavior appropriate ? labs No results found for this or any previous visit (from the past 24 hours). Pathology ? Imaging & Other Studies Performance Status? Assessment / Plan: ? Right ovarian mass with peritoneal carcinomatosis. 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 Patient was last seen in the office in February 2022. Patient now had CTA chest done for abdominal discomfort and shortness of breath on July 24 that showed 3.7 cm right adnexal mass concerning for ovarian neoplasm with mesenteric and peritoneal stranding with nodularity concerning for peritoneal carcinomatosis. At this time I will order labs including CA125, CBC, CMP, serotonin and chromogranin level as well. I will also order pelvic MRI as recommended by the radiologist. After the initial testing will decide about biopsy of the peritoneal nodularity. Patient will also be referred to the protective signal repairer after confirmation of the diagnosis for further management. I have answered all the questions the patient satisfaction. Follow-up with me after MRI in1 week. DVT and chronic PE. Patient had Doppler study done on July 21, 2025 showed DVT of the left popliteal and gastrocnemius vein. CTA chest done on July 24 showed chronic pulmonary embolism. Patient is on Eliquis. GERD. Patient is on Protonix. Thank you very much for allowing me to participate in Danette Thomas's evaluation and management. Please feel free to contact if I can be of any further assistance in your patient???s care requiring hematology or oncology evaluation. Sincerely, ? ? Roni Tracy M.D. cell TOBACCO COUNSELING She is not a tobacco/nicotine user. Roni Tracy MD ,09/22/2025 2:36 PM ? Total time spent 60 minutes, two third of the total time spent counseling patient [id number]. CC:? NG PATTERN LAYOUT TECHNICIAN documented in this encounter Plan of Treatment Upcoming Encounters Date Type Department Care Team (Late st Contact Info) Description 10/19/2025 4:30 PM SEWING PATTERN LAYOUT TECHNICIAN Telephone Check Up [facility] Oncology and Hematology [facility] [address] [facility] [address] [place] [address] Roni Tracy MD [address] [facility] [address] [place] [address] Scheduled Orders Name Type Priority Associated Diagnoses Orde r Schedule MRI PELVIS W WO CONTRAST Imaging Stat Ovarian tumor Expected: 09/23/2025, Expires: 09/22/2026 CBC WITH DIFFERENTIAL Lab Stat Ovarian tumor Expected: 09/22/2025, Expires: 09/22/2026 COMPREHENSIVE METABOLIC PANEL Lab Stat Ovarian tumor Expected: 09/22/2025, Expires: 09/22/2026 CANCER ANTIGEN 125 Lab Routine Ovarian tumor Expected: 09/22/2025, Expires: 09/22/2026 SEROTONIN LEVEL Lab Routine Malignant neoplasm of appendix (CMS/HCC) Expected: 09/22/2025, Expires: 03/21/2026 CHROMOGRANIN A Lab Routine Malignant neoplasm of appendix (CMS/HCC) Expected: 09/22/2025, Expires: 03/21/2026 documented as of this encounter Visit Diagnoses Diagnosis Malignant neoplasm of appendix (CMS/HCC)- Primary Malignant neoplasm of appendix vermiformis Ovarian tumor Neoplasm of unspecified nature of other genitourinary organs documented in this encounter Care Teams Monument Setter Helper Relationship Specialty Start Date End Date Buschling, Jesus, DO [address] [place] [id number] PCP - General Family Practice 01/17/22 documented as of this encounter
[2025-09-22 14:40] LABS: Hematocrit 37.1 % (37.0-47.0); Hemoglobin 12.5 g/dL (12.0-15.0); Immature Granulocyte Percent A 0.0 % (0-0.5); Lymphocytes Absolute Auto 2.37 K/mm3 (0.9-3.2); Mean Corpuscular HGB Conc 33.7 g/dl (32-36); Mean Corpuscular Hemoglobin 34.3 pg (26-34); Mean Corpuscular Volume 101.9 fl (80-100); Nucleated Red Blood Cells Absolute Auto 0.000 K/mm3 (0.0-0.012); Nucleated Red Blood Cells Perc 0.0 % (0.0-0.2); Platelet Count Result 214 k/mm3 (150-375); Red Blood Count 3.64 M/mm3 (4.2-5.4); White Blood Count 5.5 K/mm3 (4.5-10.0)
--- OUTSIDE RECORDS SUMMARY | 2025-09-22 15:55 | XMS_ITS | Encounter Summary ---
Author Organization [facility] Address [address] [place] [address] Phone Care Team Providers Care Tool Profiling Machine Set Up Operator Name Role Phone Lucho Peralta MD Unavailable Kassandra Hooks NP Primary Care Provider + Reason for Visit * Reason Onset Date Comments Prior Auth 09/22/2025 Echo Encounter Details Date Type Department Care Team (Late st Contact Info) Description 09/22/2025 Telephone [facility] Medicine Cardiology [address] [facility] [address] [place] [address] Baljit Pineda MD [address] [facility] [address] [place] [address] Prior Auth (Echo) Social History Tobacco Use Types Packs/Day Years [...] file Legal Sex Female 10:13 AM HEALTH CLINICIAN Gender Identity Female 06/12/2023 3:27 PM CDT Sexual Orientation Lesbian 06/12/2023 3: 27 PM CDT documented as of this encounter Miscellaneous Notes * Telephone Encounter - Chasity Borjas RN - 09/22/2025 10:25 AM HEALTH CLINICIAN ----- Message from Randa Ray sent at 09/22/2025 7:51 AM HEALTH CLINICIAN ----- Regarding: RE: TTE duplicate Chasity Eduardo I received the denial for this pt, despite my telling the RN reviewer that we knew this was a duplicate order and the pt did not have the original test ordered by the other physician. I also noted that on my faxed request. A P2P can be done to dispute if the Dr wants to call. [facility] @ [phone] Request ID [id number] If you decide to do the P2P, let me know the outcome and I will update the referral. Thanks! Randa KNIGHT for pt to call the office back to discuss or to send the staff a portal message. TH CLINICIAN TH CLINICIAN documented in this encounter Plan of Treatment [...] on filedocumented in this encounter Care Teams Tool Profiling Machine Set Up Operator Relationship Specialty Start Date End Date Kassandra Hooks NP PCP - General Nurse Practitioner 08/27/24 Lucho Peralta MD Referring Physician Otolaryngology 12/07/23 documented as of this encounter
--- OUTSIDE RECORDS SUMMARY | 2025-09-22 15:55 | XMS_ITS | Encounter Summary ---
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 Gender Identity Female 06/12/2023 3:27 PM [...] on filedocumented in this encounter Care Teams Staff Submarine Warfare Officer Relationship Specialty Start Date End Date Jesus Gonzalez DO [address] [place] [address] PCP - General Family Medicine 10/26/21 02/07/23 Odilon Vyas MD [address] [place] [address] PCP - General Family Medicine 02/08/23 02/07/24 Xiomara Carlos MD [address] [place] [address] PCP - General Psychiatry 02/08/24 03/23/24 Odilon Vyas MD [address] [place] [address] PCP - General Family Medicine 03/24/24 08/12/24 Unknown, Notinfile PCP - General 08/13/24 08/26/24 Kassandra Hooks, EDWIGE PCP - General Nurse Practitioner 08/27/24 Lucho Peralta MD [address] [place] [address] Referring Physician Otolaryngology 12/07/23 documented as of this encounter
--- OUTSIDE RECORDS SUMMARY | 2025-09-22 15:55 | XMS_ITS | Encounter Summary ---
Author Organization [facility] Address [address] [place] [address] Phone Care Team Providers Care Corporate Travel Manager Name Role Phone Jesus Gonzalez DO Primary Care Provider Odilon Vyas MD Primary Care Provider + [phone] Lucho Peralta MD Unavailable Xiomara Carlos MD Primary Care Provider [phone] Odilon Vyas MD Primary Care Provider + [phone] Unknown, Notinfile Primary Care Provider Unavail able Kassandra Hooks NP Primary Care Provider + Encounter Details Date Type Department Care Team (Latest Contact Info) Description 08/16/2015 Orders Only [facility] CARDIOLOGY Chasity Borjas, CARMINA [address] [facility] [address] [place], [place] [id number] Social History Tobacco Use Types Packs/Day Years Used Date Smoking Tobacco: Never Assessed Comments Unknown Sex and Gender Information Value Date Recorded Sex Assigned at Not on file 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 Gender Identity Female 06/12/2023 3:27 PM CDT [...] on filedocumented in this encounter Care Teams Corporate Travel Manager Relationship Specialty Start Date End Date Jesus Gonzalez DO [address] [place] [address] PCP - General Family Medicine 10/26/21 02/07/23 Odilon Vyas MD [address] [place] [address] PCP - General Family Medicine 02/08/23 02/07/24 Xiomara Carlos MD [address] [place] [address] PCP - General Psychiatry 02/08/24 03/23/24 Odilon Vyas MD [address] [place] [address] PCP - General Family Medicine 03/24/24 08/12/24 Unknown, Notinfile PCP - General 08/13/24 08/26/24 Kassandra Hooks NP PCP - General Nurse Practitioner 08/27/24 Lucho Peralta MD [address] [place] [address] Referring Physician Otolaryngology 12/07/23 documented as of this encounter
--- OUTSIDE RECORDS SUMMARY | 2025-09-22 15:55 | XMS_ITS | Encounter Summary ---
Author Organization [facility] Address [address] [place] [address] Phone Care Team Providers Care Cavalry Scout Name Role Phone Lucho Peralta MD Unavailable Kassandra Hooks NP Primary Care Provider + Encounter Details Date Type Department Care Team (Latest Contact Info) Description 09/09/2025 Results Follow-Up [facility] Medicine Endocrinology Metabolism and Lipid [address] [facility] [place] [address] [place] [address] Lana Carmona DO [address] [facility] [address] [place], [place] [id number] Cortisol baseline, Cortisol 30 min, Cortisol 60 min Social History Tobacco Use Types Packs/Day Years [...] on file Legal Sex Female 10:13 AM PHOTOGRAPHY INTERN Gender Identity Female 06/12/2023 3:27 PM [...] on filedocumented in this encounter Care Teams Cavalry Scout Relationship Specialty Start Date End Date Kassandra Hooks NP PCP - General Nurse Practitioner 08/27/24 Lucho Peralta MD Referring Physician Otolaryngology 12/07/23 documented as of this encounter
--- OUTSIDE RECORDS SUMMARY | 2025-09-22 15:55 | XMS_ITS ---
Author Organization [facility] Address [address] [place] [address] Care Team Providers Care Machine Marker Name Role Phone Lucho Peralta MD Unavailable Kassandra Hooks NP Primary Care Provider + Active Problems Problem Noted Date Diagnosed Date Vitamin D deficiency 07/31/2025 Uveitis 07/31/2025 TIA (transient ischemic attack) 07/31/2025 Seizure 07/31/2025 Seasonal allergies 07/31/2025 Portal vein thrombosis 07/31/2025 Portal hypertension 07/31/2025 PAF (paroxysmal atrial fibrillation) 07/31/2025 Atrial fibrillation 07/31/2025 Otorrhea, left ear 07/31/2025 Osteomyelitis 07/31/2025 Obesity 07/31/2025 Nasal crusting 07/31/2025 Migraine 07/31/2025 Memory deficit 07/31/2025 Mass of right ovary 07/31/2025 Lumbar spondylosis 07/31/2025 Laceration of left hand 07/31/2025 Hypocalcemia 07/31/2025 Insomnia 07/31/2025 Hearing loss, bilateral 07/31/2025 Headache 07/31/2025 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 Xuan locke. Diagnosed with Dr. Solomon Stanley 08/2024. 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 - We will have MRE from [facility] read by our radiologists. Assessment & Plan (02/06/2023 12:22 PM CDT): MRE on 12/08/22 showed cystic lesions of the pancreas measuring up to 6mm. The patient only had an image of the impression of this report, and we do not have access to the report or study itself. - Patient has given authorization to release MRE report from [facility]. We will also obtain [...] her abdominal pain on recent MRE at [facility]. We will obtain this [...] valve Surgeries: ileocolic resection in 2019 at [facility] - 6 inches of small [...] traverse the IC valve, prompting ileocolic resection ([facility]) - 6 inches resected. Path [...] traverse the IC valve, prompting ileocolic resection ([facility]) - 6 inches resected. Path [...] traverse the IC valve, prompting ileocolic resection ([facility]) - 6 inches resected. Path [...] dose. Assessment & Plan (10/23/2022 11:27 AM OPERATIONS DISPATCHER): Diagnosis in 2014. Humira since Mar, 2016. [...] by patient yet. -recent blood work from [facility] reviewed. Noted to have urinalysis, [...] continue. Assessment & Plan (09/25/2022 10:44 AM OPERATIONS DISPATCHER): Diagnosis in 2014. Humira since Mar, 2016. [...] today -Talked to her GI group at [facility] Dr Torres on-call, suggested if pt is stable to d/c to be admitted to [facility] work her up further. Talking [...] current plan information found. Other Current Plans iron sucrose (Venofer) Infusion* Plan Start Date:04/06/2025 [...]
--- OUTSIDE RECORDS SUMMARY | 2025-09-22 15:55 | XMS_ITS | Encounter Summary ---
Author Organization [facility] Address [address] [place] [address] Care Team Providers Care Sorting Cows Worker Name Role Phone Odilon Vyas MD Primary Care Provider [phone] Lucho Peralta MD Unavailable Xiomara Carlos MD Primary Care Provider [phone] Odilon Vyas MD Primary Care Provider [phone] Unknown, Notinfile Primary Care Provider Unavail able Kassandra Hooks NP Primary Care Provider + Encounter Details Date Type Department Care Team (Late st Contact Info) Description 01/21/2024 Telephone [facility] [address] [address], [address] [place] [address] Massimo Glynn MD [address] [address] Social History Tobacco Use Types Packs/Day Years [...] on file Legal Sex Female 10:13 AM FAMILY RESOURCE MANAGEMENT PROFESSOR Gender Identity Female 06/12/2023 3:27 PM CDT [...] on filedocumented in this encounter Care Teams Sorting Cows Worker Relationship Specialty Start Date End Date Odilon Vyas MD [address] [place] [address] PCP - General Family Medicine 02/08/23 02/07/24 Xiomara Carlos MD [address] [place] [address] PCP - General Psychiatry 02/08/24 03/23/24 Odilon Vyas MD [address] [place] [address] PCP - General Family Medicine 03/24/24 08/12/24 Unknown, Notinfile PCP - General 08/13/24 08/26/24 Kassandra Hooks NP PCP - General Nurse Practitioner 08/27/24 Lucho Peralta MD [address] [place] [address] Referring Physician Otolaryngology 12/07/23 documented as of this encounter
--- OUTSIDE RECORDS SUMMARY | 2025-09-22 15:55 | XMS_ITS | Encounter Summary ---
Author Organization [facility] Address [address] [place] [address] Phone Care Team Providers Care Welding Setter Name Role Phone Jesus Gonzalez DO Primary Care Provider Odilon Vyas MD Primary Care Provider + [phone] Lucho Peralta MD Unavailable Xiomara Carlos MD Primary Care Provider [phone] Odilon Vyas MD Primary Care Provider + [phone] Unknown, Notinfile Primary Care Provider Unavail able Kassandra Hooks NP Primary Care Provider + Encounter Details Date Type Department Care Team (Latest Contact Info) Description 08/21/2015 Orders Only [facility] CARDIOLOGY Chasity Borjas, CARMINA [address] [facility] [address] [place], [place] [id number] Social History Tobacco Use Types Packs/Day Years Used Date Smoking Tobacco: Never Assessed Comments Unknown Sex and Gender Information Value Date Recorded Sex Assigned at Not on file Legal Sex Female 10:13 AM GLOBE TESTER Gender Identity Female 06/12/2023 3:27 PM CDT [...] on filedocumented in this encounter Care Teams Welding Setter Relationship Specialty Start Date End Date Jesus Gonzalez DO [address] [place] [address] PCP - General Family Medicine 10/26/21 02/07/23 Odilon Vyas MD [address] [place] [address] PCP - General Family Medicine 02/08/23 02/07/24 Xiomara Carlos MD [address] [place] [address] PCP - General Psychiatry 02/08/24 03/23/24 Odilon Vyas MD [address] [place] [address] PCP - General Family Medicine 03/24/24 08/12/24 Unknown, Notinfile PCP - General 08/13/24 08/26/24 Kassandra Hooks NP PCP - General Nurse Practitioner 08/27/24 Lucho Peralta MD [address] [place] [address] Referring Physician Otolaryngology 12/07/23 documented as of this encounter
--- OUTSIDE RECORDS SUMMARY | 2025-09-22 15:55 | XMS_ITS | Encounter Summary ---
Author Organization [facility] Address [address] [place] [address] Phone Care Team Providers Care Outside Salesperson Name Role Phone Lucho Peralta MD Unavailable Kassandra Hooks EMAIL MARKETING INTERN Primary Care Provider + Encounter Details Date Type Department Care Team (Latest Contact Info) Description 08/11/2025 Results Follow-Up 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
--- OUTSIDE RECORDS SUMMARY | 2025-09-22 15:55 | XMS_ITS | Patient Health Record ---
Author Organization [email or web address] Address [address] [facility] [address] [place] [address] Care Team Providers Care Mechanical Inspector Name Role Phone [place] Kassandra PEÑA Primary Care Provider Kiah Puentes Unavailable [phone] Tiara Rodrigues Unavailable [phone] Allergies Allergen (clinical drug ingredient) Drug/Non Drug [...] Severe recurrent major depression without psychotic features ([id number]) Major depressive disorder, recurrent severe without psychotic features (F33.2) Active confirmed Problem Anger reaction ([id number]) Anger reaction (R45.4) Active confirmed Encounters Encounter Location Date Provider Diagnosis [facility] [address] [place] [address] 10/21/2024 Kiah Hyde [facility] [address] [place] [address] 11/04/2024 Tiara Rodrigues Anger reaction R45.4 and Major depressive disorder, recurrent severe without psychotic features F33.2 [facility] [employer], [facility] [address] [place] [address] 12/08/2024 Tiarastephanie Rodrigues Major depressive disorder, recurrent severe without psychotic features F33.2 and Anger reaction R45.4 [facility], [facility] [address] [place] [address] 12/16/2024 Tiara Ronaldliter [facility] [employer], [place] [address] [place] [address] 12/18/2024 Tiarastephanie Rodrigues Major depressive disorder, recurrent severe without psychotic features F33.2 and Anger reaction R45.4 [facility] [employer], [employer] [address] [place] [address] 12/25/2024 Tiara Rodrigues Major depressive disorder, recurrent [...] for medication review. 7. Potential Need for Intermediate - Explore the patient's concerns about returning home and interest in skilled nursing options. - Provide information on community resources including providing a flyer for the [facility]. Follow-up: - Schedule a follow-up appointment to [...] for medication review. 7. Potential Need for Intermediate - Explore the patient's concerns about returning home and interest in skilled nursing options. - Provide information on community resources including providing a flyer for the [facility]. Follow-up: - Schedule a follow-up appointment to [...] and Alexa to maintain consistent communication with [facility] [employer]'s teachers and school staff. Recommend family therapy [...] and Alexa to maintain consistent communication with [employer]'s teachers and school staff. Recommend family therapy [...] Start Date Coverage End Date [address] [place] [address] [id number] Danette Thomas Self - patient is the insured Medical (General) History Medical History History ICD Code A'Fib Crohn's Disease DM Hx of CVA Hx of TIA Insomnia Portal HTN
--- OUTSIDE RECORDS SUMMARY | 2025-09-22 15:55 | XMS_ITS | Encounter Summary ---
Author Organization [facility] Address [address] [place] [address] Phone Care Team Providers Care Interface Analyst Name Role Phone Lucho Peralta MD Unavailable Odilon Vyas MD Primary Care Provider [phone] Unknown, Notinfile Primary Care Provider Unavail able Kassandra Hooks NP Primary Care Provider + Encounter Details Date Type Department Care Team (Late st Contact Info) Description 06/24/2024 Orders Only [facility] Medicine Gastroenterology [address] [facility] [address], [address] [place] [address] Irma Dillon MD [address] [place] [address] Social History Tobacco Use Types [...] on file Legal Sex Female 10:13 AM BULK SUGAR 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
--- OUTSIDE RECORDS SUMMARY | 2025-09-22 15:55 | XMS_ITS | Encounter Summary ---
Author Organization [facility] Address [address] [place] [address] Phone Care Team Providers Care Brush Clearing Laborer Name Role Phone Lucho Peralta MD Unavailable Kassandra Hooks NP Primary Care Provider + Encounter Details Date Type Department Care Team (Late st Contact Info) Description 09/07/2025 Telephone [facility] Medicine Cardiology [address] [facility] Advanced Medicine 8th [place] [address] [place] [address] Summer Garcia Social History Tobacco Use Types Packs/Day Years [...] on file Legal Sex Female 10:13 AM JIG HAND Gender Identity Female 06/12/2023 3:27 PM CDT Sexual Orientation Lesbian 06/12/2023 3: 27 PM CDT documented as of this encounter Miscellaneous Notes * Telephone Encounter - Rama Locke - 09/08/2025 2:47 PM CDT Echo and EKG in chart. * Telephone Encounter - Rigobertoartemiorosana Summer - 09/07/2025 1:22 PM CDT CARDIOLOGY NEW PATIENT RECORDS REVIEW Insurance Information Insurance Library Insurance Provider: KARI Group number: Diagnosis and Referring Provider Information (Check for Referrals in Epic) Cardiac Diagnosis: Palpitations Referring Provider: Dr. Carmona Referring Provider Specialty: endocrinology Referring Provider Current/Former Plastic Surgeon (if different from referring provider): Current/Former Plastic Surgeon Phone: Questions to Determine Placement for Specialty Clinics Cardiology-Oncology (For new amyloidosis referrals, complete RRS and send to NEW PT POOL and send an encounter to the [place] pool to make them aware.) Are you actively undergoing cancer treatments including radiation, chemotherapy, or immunotherapy or is this planned in the future?: no When: Where: Congenital Is this a heart condition that has existed since : no Maternal- Cardiology (Females Only) Are you or had a baby in the past year: no Sports Medicine Do you regularly exercise or play sports: yes Are the symptoms or concerns associated with acviity: no Hypertension (If yes, must be referred by MD) Are you a hemodialysis or peritoneal dialysis patient: no Referring provider: Cardiology History Questions Have you been hospitalized for cardiac issues: no When: Where: Have you had an echo: no When: Where: Have you had a stress test: no When: Where: Have you had an EKG: yes When: 07/2025 Where: [facility] Have you had a holter monitor: yes When: Where: [place] Have you had cardiac imaging(CT or MRI): no Testing/imaging: When: Where: Have you had any procedures (cath, CABG, cardioversion, or ablation): no When: Where: Have you had a sleep study done: no When: Where: Do you have an implantable cardiac device: no Type: Employment Coach: When: Where: Appointment Details Date: 09/09/25 Time: 1:00 PM Location: [facility] 2300 Provider: Dr. Pineda documented in this encounter Plan of Treatment Scheduled Procedures Name Priority Associated Diagnoses Date/Ti me COLONOSCOPY Iron deficiency documented as of this encounter Goals Goal Patient Goal Type Associated Problems Recent Progress Patient-Stated? Author CCM Chronic Pain Care Plan Chronic Care Management Worsening( 8:52 AM CDT) No Lahsawn Thomas, RN Note: Problem: Chronic Pain Goals: 1. Minimize further functional decline 2. Maximize quality of life 3. Control pain Strategies: - Activity/exercise program recommendation - Conservative stepwise pain medicine strategy with multi-disciplinary approach - Recommend healthy lifestyle strategies and compensatory methods as needed documented as of this encounter Visit Diagnoses Not on filedocumented in this encounter Care Teams Brush Clearing Laborer Relationship Specialty Start Date End Date Kassandra Hooks NP PCP - General Nurse Practitioner 08/27/24 Lucho Peralta MD Referring Physician Otolaryngology 12/07/23 documented as of this encounter
--- OUTSIDE RECORDS SUMMARY | 2025-09-22 15:55 | XMS_ITS | Encounter Summary ---
Author Organization [facility] Address [address] [place] [address] Phone Care Team Providers Care Backup Administrative Coordinator Name Role Phone Jesus Gonzalez DO Primary Care Provider Odilon Vyas MD Primary Care Provider + [phone] Lucho Peralta MD Unavailable Xiomara Carlos MD Primary Care Provider [phone] Odilon Vyas MD Primary Care Provider + [phone] Unknown, Notinfile Primary Care Provider Unavail able Kassandra Hooks NP Primary Care Provider + Encounter Details Date Type Department Care Team (Latest Contact Info) Description 05/10/2015 Orders Only [facility] CARDIOLOGY Chasity Borjas, CARMINA [address] [facility] [address] [place], [place] [id number] Social History Tobacco Use Types Packs/Day Years Used Date Smoking Tobacco: Never Assessed Comments Unknown Sex and Gender Information Value Date Recorded Sex Assigned at Not on file Legal Sex Female 10:13 AM CORPORATE LIBRARIAN Gender Identity Female 06/12/2023 3:27 PM [...] on filedocumented in this encounter Care Teams Backup Administrative Coordinator Relationship Specialty Start Date End Date Jesus Gonzalez DO [address] [place] [address] PCP - General Family Medicine 10/26/21 02/07/23 Odilon Vyas MD [address] [place] [address] PCP - General Family Medicine 02/08/23 02/07/24 Xiomara Carlos MD [address] [place] [address] PCP - General Psychiatry 02/08/24 03/23/24 Odilon Vyas MD [address] [place] [address] PCP - General Family Medicine 03/24/24 08/12/24 Unknown, Notinfile PCP - General 08/13/24 08/26/24 Kassandra Hooks NP PCP - General Nurse Practitioner 08/27/24 Lucho Peralta MD [address] [place] [address] Referring Physician Otolaryngology 12/07/23 documented as of this encounter
--- OUTSIDE RECORDS SUMMARY | 2025-09-22 15:55 | XMS_ITS | Encounter Summary ---
Author Organization [facility] Address [address] [place] [address] Phone Care Team Providers Care Rebar Bender Name Role Phone Jesus Gonzalez DO Primary Care Provider Odilon Vyas MD Primary Care Provider + [phone] Lucho Peralta MD Unavailable Xiomara Carlos MD Primary Care Provider [phone] Odilon Vyas MD Primary Care Provider + [phone] Unknown, Notinfile Primary Care Provider Unavail able Kassandra Hooks NP Primary Care Provider + Encounter Details Date Type Department Care Team (Latest Contact Info) Description 08/17/[address] [facility] CARDIOLOGY Chasity Borjas, CARMINA [address] [facility] [address] [place], [place] [id number] Social History Tobacco Use Types Packs/Day Years Used Date Smoking Tobacco: Never Assessed Comments Unknown Sex and Gender Information Value Date Recorded Sex Assigned at Not on file Legal Sex Female 10:13 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 Gender Identity Female 06/12/2023 3:27 PM [...] on filedocumented in this encounter Care Teams Rebar Bender Relationship Specialty Start Date End Date Jesus Gonzalez DO [address] [place] [address] PCP - General Family Medicine 10/26/21 02/07/23 Odilon Vyas MD [address] [place] [address] PCP - General Family Medicine 02/08/23 02/07/24 Xiomara Carlos MD [address] [place] [address] PCP - General Psychiatry 02/08/24 03/23/24 Odilon Vyas MD [address] [place] [address] PCP - General Family Medicine 03/24/24 08/12/24 Unknown, Notinfile PCP - General 08/13/24 08/26/24 Kassandra Hooks, EDWIGE PCP - General Nurse Practitioner 08/27/24 Lucho Peralta MD [facility] [place] [address] Referring Physician Otolaryngology 12/07/23 documented as of this encounter
--- OUTSIDE RECORDS SUMMARY | 2025-09-22 15:55 | XMS_ITS | Encounter Summary ---
Author Organization [facility] Address [address] [place] [address] Phone Care Team Providers Care Product Architect Name Role Phone Jesus Gonzalez DO Primary Care Provider Odilon Vyas MD Primary Care Provider + [phone] Lucho Peralta MD Unavailable Xiomara Carlos MD Primary Care Provider [phone] Odilon Vyas MD Primary Care Provider + [phone] Unknown, Notinfile Primary Care Provider Unavail able Kassandra Hooks NP Primary Care Provider + Encounter Details Date Type Department Care Team (Latest Contact Info) Description 08/02/[address] 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 Gender Identity Female 06/12/2023 3:27 PM [...] on filedocumented in this encounter Care Teams Product Architect Relationship Specialty Start Date End Date Jesus Gonzalez DO [address] [place] [address] PCP - General Family Medicine 10/26/21 02/07/23 Odilon Vyas MD [address] [place] [address] PCP - General Family Medicine 02/08/23 02/07/24 Xiomara Carlos MD [address] [place] [address] PCP - General Psychiatry 02/08/24 03/23/24 Odilon Vyas MD [address] [place] [address] PCP - General Family Medicine 03/24/24 08/12/24 Unknown, Notinfile PCP - General 08/13/24 08/26/24 Ksasandra Hooks NP PCP - General Nurse Practitioner 08/27/24 Lucho Peralta MD [address] [place] [address] Referring Physician Otolaryngology 12/07/23 documented as of this encounter
--- OUTSIDE RECORDS SUMMARY | 2025-09-22 15:55 | XMS_ITS | Encounter Summary ---
Author Organization [facility] Address [address] [place] [address] Phone Care Team Providers Care Biological Technical Officer Name Role Phone Jesus Gonzalez DO Primary Care Provider Odilon Vyas MD Primary Care Provider + [phone] Lucho Peralta MD Unavailable Xiomaar Carlos MD Primary Care Provider [phone] Odilon Vyas MD Primary Care Provider + [phone] Unknown, Notinfile Primary Care Provider Unavail able Kassandra Hooks NP Primary Care Provider + Encounter Details Date Type Department Care Team (Latest Contact Info) Description 08/24/2015 Orders Only [facility] C[facility]IOLOG[facility] Chasity Borjas, CARMINA [address] [facility] [address] [place], [place] [id number] Social History Tobacco Use Types Packs/Day Years Used Date Smoking Tobacco: Never Assessed Comments Unknown Sex and Gender Information Value Date Recorded Sex Assigned at Not on file Legal Sex Female 10:13 AM FIELD CLINICAL ENGINEER Gender Identity Female 06/12/2023 3:27 PM [...] on filedocumented in this encounter Care Teams Biological Technical Officer Relationship Specialty Start Date End Date Jesus Gonzalez DO [address] [place] [address] PCP - General Family Medicine 10/26/21 02/07/23 Odilon Vyas MD [address] [place] [address] PCP - General Family Medicine 02/08/23 02/07/24 Xiomara Carlos MD [address] [place] [address] PCP - General Psychiatry 02/08/24 03/23/24 Odilon Vyas MD [address] [place] [address] PCP - General Family Medicine 03/24/24 08/12/24 Unknown, Notinfile PCP - General 08/13/24 08/26/24 Kassandra Hooks NP PCP - General Nurse Practitioner 08/27/24 Lucho Peralta MD [address] [place] [address] Referring Physician Otolaryngology 12/07/23 documented as of this encounter
--- OUTSIDE RECORDS SUMMARY | 2025-09-22 15:55 | XMS_ITS | Patient Health Record ---
Author Organization Fabian Noe MD Address [address] [address] Care Team Providers Care Diet Aid Name Role Phone Fabian Noe Unavailable Reason [...] Chest with 2 views 11/30/2014 WOUND CULTURE 10/26/2014 WOUND CULTURE 11/30/2014 Insurance Providers Payer Name Payer Address Payer Phone Subscriber Number Group Number Insured Name Patient Relationship to Insured Coverage Start Date Coverage End Date [facility] [address] [address] [place] [address] [id number] Danette Thomas Self - patient is the insured 4 Medical (General) History Medical History History ICD Code Rash Tendinitis NOS Ulcer of skin NOS
--- OUTSIDE RECORDS SUMMARY | 2025-09-22 15:55 | XMS_ITS | Encounter Summary ---
Author Organization [facility] Address [address] [place] [address] Care Team Providers Care Soda Column Operator Name Role Phone Odilon Vyas MD Primary Care Provider [phone] Lucho Peralta MD Unavailable Xiomara Carlos MD Primary Care Provider [phone] Odilon Vyas MD Primary Care Provider [phone] Unknown, Notinfile Primary Care Provider Unavail able Kassandra Hooks NP Primary Care Provider + Encounter Details Date Type Department Care Team (Late st Contact Info) Description 01/18/2024 Telephone [facility] [address] [address], [address] [place] [address] Massimo Glynn MD [address] [address] Social History Tobacco Use Types Packs/Day Years [...] on file 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 Gender Identity Female 06/12/2023 3:27 PM [...] on filedocumented in this encounter Care Teams Soda Column Operator Relationship Specialty Start Date End Date Odilon Vyas MD [address] [place] [address] PCP - General Family Medicine 02/08/23 02/07/24 Xiomara Carlos MD [address] [place] [address] PCP - General Psychiatry 02/08/24 03/23/24 Odilon Vyas MD [address] [place] [address] PCP - General Family Medicine 03/24/24 08/12/24 Unknown, Notinfile PCP - General 08/13/24 08/26/24 Kassandra Hooks NP PCP - General Nurse Practitioner 08/27/24 Lucho Peralta MD [address] [place] [address] Referring Physician Otolaryngology 12/07/23 documented as of this encounter
--- OUTSIDE RECORDS SUMMARY | 2025-09-22 15:55 | XMS_ITS | Clinical Summary ---
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) Sulfa Antibiotics [...] of Crohn's disease 09/14/2024 Factor V deficiency 09/14/2024 History of atrial fibrillation 09/14/2024 Chronic [...] isk 2-dose series) 1973 Annual Physical 1974 COVID-19 Vaccine (#1) 1976 Meningococcal B Vaccine (1 o f 4 - Increased Risk) 1981 Hepatitis C 1989 [...] Vaccines (1 of 2) 2021 PHQ-2 (Physician [place]) 11/19/2024 09/12/2024 Influenza Adult (#1) 2025 Hepatitis A Vaccines Aged Out No long er eligible based on patient's age to complete this topic RSV Immunizations Under 20 Months Aged Out No longer eligible based on patient's age to complete this topic Insurance [facility] Care Teams Tray Packer Relationship Specialty [place] [id number] [address] PCP - General INTERNAL MEDICINE 09/09/24
--- OUTSIDE RECORDS SUMMARY | 2025-09-22 15:55 | XMS_ITS | Clinical Summary ---
Author Organization [facility] Address [address] [place] [address] Care Team Providers Care Manufacturer Representative Name Role Phone Lucho Peralta MD Unavailable Kassandra Hooks NP Primary Care Provider + Allergies Active Allergy Reactions Criticality Noted Date Comments Amoxicillin-Pot Clavulanate Other (See comments) Low 02/06/2023 Makes Crohn's flare up Sulfamethoxazole-Trime thoprim Other (See comments) Low 02/06/2023 Makes Crohn's flare up Hydrocodone-Acetaminop hen Nausea And Vomiting Medium 05/29/2016 Banks Latex Itching High 08/10/2016 Silver Blisters,Other (See comments) High 07/19/2023 Tegaderm dressing- used with 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 line (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) Sulfa Other [...] 40 mg tabletIndications: Generalized Anxiety Disorder,Started in [place] r/t anxiety and nerves/ chronic pain Take 1 tablet (40 mg total) by mouth nightly 023 Active turmeric root extract 500 mg capsuleIndications [...] mg total) by mouth nightly 024 Active calcium citrate-vitamin D3 (CITRACAL WITH D) 315 mg-6.25 mcg (250 unit) per tablet Take 1 tablet by mouth 2 (two) times a day Active umeclidinium-vilan teroL (ANORO ELLIPTA) 62.5-25 mcg/actuation blister with device Inhale 1 puff daily 1 each 11 024 Active ciprofloxacin (CILOXAN) 0.3 % ophthalmic solution [address] (NexIUM) 40 mg capsule daily Active ketorolac (ACULAR) 0.5 % ophthalmic solution 024 Active diphenoxylate-atro pine (LOMOTIL) 2.5-0.025 mg per tablet TAKE 1 TABLET BY MOUTH 4 (FOUR) TIMES A DAY NEEDED FOR DIARRHEA 120 tablet [address] (PROTONIX) 40 mg EC tablet TAKE ONE TABLET BY MOUTH IN THE MORNING BEFORE BREAKFAST 30 tablet 11 025 Active eszopiclone (LUNESTA) 3 mg tablet 025 Active oxyCODONE-acetamin ophen (PERCOCET) 10-325 mg per tablet 025 Active Humira Pen 40 mg/0.8 mL pen injector kitIndications: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 30 tablet 1 Active predniSONE (DELTASONE) 5 mg tablet TAKE A HALF TABLET BY MOUTH DAILY PATCH NEEDS APPOINTMENT BEFORE MORE REFILLS 15 tablet Active Additional Information Patient not taking.Reported on 08/10/2025 rosuvastatin (CRESTOR) 40 mg tabletIndications: Other hyperlipidemia Take 1 tablet (40 mg total) by mouth daily 30 tablet 5 Active ciprofloxacin-dexA METHasone (CIPRODEX) otic suspension Active cyanocobalamin (Vitamin B-12) 1,000 mcg sublingual tabletIndications: Prevention of Vitamin B12 Deficiency Take 1 tablet (1,000 mcg total) by mouth party demonstrator before breakfast No particular days 2024 Discontinued UNABLE TO FIND Take 1 each by mouth daily Med Name: beef liver Grassfed supplement 2024 Discontinued tiZANidine (ZANAFLEX) 2 mg tablet TAKE ONE TABLET BY MOUTH EVERY SIX HOURS NEEDED FOR MUSCLE SPASM 120 tablet 2024 Discontinued hydrocortisone 2.5 % creamIndications:P rurigo nodularis Apply to aa on face and itchy spots BID 30 g 3 2024 Discontinued rosuvastatin (CRESTOR) 40 mg tabletIndications: Other hyperlipidemia Take 1 tablet (40 mg total) by mouth daily 30 tablet 5 025 2024 Discontinued(R araceli) Active Problems Problem Noted Date Diagnosed Date [...] Arthralgia 07/31/2025 Anxiety 07/31/2025 Anemia, macrocytic 07/31/2025 [id number] deficiency 07/31/2025 Overview (07/31/2025): Dr. Xuan locke. 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 - We will have MRE from [facility] read by our radiologists. Assessment & Plan (02/06/2023 12:22 PM CDT): MRE on 12/08/22 showed cystic lesions of the pancreas measuring up to 6mm. The patient only had an image of the impression of this report, and we do not have access to the report or study itself. - Patient has given authorization to release MRE report from [facility]. We will also obtain the images and [...] her abdominal pain on recent MRE at [facility]. We will obtain this study and have [...] valve Surgeries: ileocolic resection in 2019 at [facility] - 6 inches of small [...] traverse the IC valve, prompting ileocolic resection ([facility]) - 6 inches resected. Path [...] traverse the IC valve, prompting ileocolic resection ([facility]) - 6 inches resected. Path [...] traverse the IC valve, prompting ileocolic resection ([facility]) - 6 inches resected. Path [...] dose. Assessment & Plan (10/23/2022 11:27 AM RCIS): Diagnosis in 2014. Humira since Mar, 2016. [...] continue. Assessment & Plan (09/25/2022 10:44 AM RCIS): Diagnosis in 2014. Humira since Mar, 2016. [...] resection, 2018. 6inches. -Last colonoscopy, 04/2020. -On 2015, Mercaptopurine [...] today -Talked to her GI group at [facility] Dr Torres on-call, suggested if pt is stable to d/c to be admitted to [facility] work her up further. Talking [...] Encounters Date Type Department Care Team Description 09/22/2025 Telephone [facility] Cardiology [address] [place] [address] Baljit Pineda MD Prior Auth (Echo) 09/09/2025 1:30 PM CDT Ancillary Procedure [facility] [address] [place] [phone] Palpitations 09/09/2025 1:00 PM CDT Office Visit [facility] Medicine Cardiology [address] [phone] Baljit Pineda MD Bilateral carotid bruits (Primary Dx); Palpitations; Paroxysmal atrial fibrillation (HCC) 09/09/2025 Results Follow-Up [facility] Medicine Endocrinology Metabolism and Lipid [address] [place] [phone] Lana Carmona DO Cortisol baseline, Cortisol 30 min, Cortisol 60 min 09/08/2025 8:40 AM CDT - 09/08/2025 11:59 PM CDT Hospital Encounter [address] [address] High risk medications (not anticoagulants) long-term use Discharge Disposition: Discharge to home or self care 09/08/2025 7:30 AM CDT Infusion [facility] Medicine Infusion Therapy [address] [place] [phone] High risk medications (not anticoagulants) long-term use (Primary Dx) 09/07/2025 Telephone [facility] Medicine Cardiology [address] [facility] 8th [place] [address] [place] [address] Summer Garcia 08/24/2025 Orders Only [facility] Medicine Endocrinology Metabolism and Lipid [address] [place] [phone] Lana Carmona DO Long-term use of high-risk medication (Primary Dx) 08/24/2025 Orders Only [facility] Medicine Endocrinology Metabolism and Lipid [address] [place] [phone] Karin Birmingham RMA Abnormal laboratory test result (Primary Dx); Other hyperlipidemia 08/13/2025 Orders Only [facility] Medicine Endocrinology Metabolism and Lipid [address] [place] [phone] Lana Carmona DO High risk medications (not anticoagulants) long-term use (Primary Dx) 08/12/2025 4:00 PM CDT Ancillary Procedure [facility] V[facility] Surgery [address] [place] [address] Pain and swelling of left lower extremity 08/12/2025 Orders Only [facility] Pulmonary at [address] [place] [address] Zia Hearn DO Other chronic pulmonary embolism, unspecified whether acute cor pulmonale present (HCC) (Primary Dx) 08/12/2025 Orders Only [facility] Medicine Hematology [address] [place] [address] [address] 6 [place] [address] Daphney Nance RN Pain and swelling of left lower extremity (Primary Dx) 08/11/2025 Results Follow-Up [facility] Endocrinology Metabolism and Lipid [address] [address] 2nd Floor [address] [place] [address] Lana Carmona DO Comprehensive metabolic panel, Magnesium, Vitamin B12, Additional followed-up results: 7 08/10/2025 2:00 PM CDT Office Visit [facility] Medicine Hematology [address] [place] [address] Medical Office Building [address] [place] [phone] Elle Medel NP Pain and swelling of left lower extremity (Primary Dx); Activated protein C resistance 08/10/2025 7:30 AM CDT Lab [facility] at [address] [address] Iron deficiency anemia, unspecified iron deficiency anemia type 08/10/2025 7:15 AM CDT Lab [facility] at [address] [address] Long-term use of high-risk medication; Palpitations; B12 deficiency; Osteopenia, unspecified location; Prediabetes 08/09/2025 Orders Only [facility] Medicine Hematology [facility] Floor 6 [place] [address] Lashonda Reynaga Iron deficiency anemia, unspecified iron deficiency anemia type (Primary Dx) 08/07/2025 Telephone [facility] Obstetrics and Gynecology [address] [facility] Medicine 13th [place] [address] [place] [address] Roxane Washington 08/04/2025 7:45 AM CDT Office Visit [facility] Endocrinology Metabolism and Lipid [address] [facility] [address] 2nd Floor [address] [place] [address] Lana Carmona DO Adnexal mass (Primary Dx); Palpitations; Atrial fibrillation, unspecified type (HCC); Prediabetes; Other hyperlipidemia; Osteopenia, unspecified location; B12 deficiency; Long-term use of high-risk medication; Vertigo; Factor V Leiden; Snoring; Deep vein thrombosis (DVT) of left lower extremity, unspecified chronicity, unspecified vein (HCC); Cerebrovascular accident (CVA), unspecified mechanism (HCC) 07/31/2025 Results Follow-Up [facility] Gastroenterology [address] [place] [address] Medical Office Building [address] [place] [phone] Montrell Kern MD Adalimumab quantitative with reflex to antibody, serum, Adalimumab ab, serum 07/28/2025 11:50 AM CDT Lab [facility] [address] [place] [phone] Crohn's disease of both small and large intestine with other complication 07/28/2025 11:00 AM CDT - 07/28/2025 11:59 PM CDT Hospital Encounter [facility] ([facility]) [address] [place] [phone] Arthralgia, unspecified joint Discharge Disposition: Discharge to home or self care 07/24/2025 Telephone [facility] Hematology [address] [facility] Floor 6 [place] [address] Daphney Nance RN 07/10/2025 Telephone [facility] Critical access hospital1 [facility] [address] [place] [address] Melvin Oneill DO Scheduling Appointments 07/08/2025 Documentation [facility] Gastroenterology [address] [place] [address] [place] [address] Koki Garcia LPN Switch from Linzess to Trulance 06/30/2025 9:30 AM CDT Office Visit [facility] Dermatology [address] [facility] [address] [place] [address] Caty Butterfield MD PhD Prurigo nodularis (Primary Dx); Scar; History of Crohn's disease 06/29/2025 Documentation [facility]enterology [address] [facility] Medical Office [address] [place] [phone] Montrell Kern MD 06/26/2025 Telephone [facility] Gastroenterology Critical access hospital1 [address] [place] [address] [place] [address] Daiana Rodríguez RMA 06/25/2025 4:00 PM CDT Office Visit [facility] G[facility]enterology Critical access hospital1 [address] [place] [address] [place] [address] Corazon Becerra NP Crohn's disease of both small and large intestine with other complication (Primary Dx); High risk medications (not anticoagulants) long-term use; Factor V deficiency (HCC); Malignant neoplasm of appendix (HCC); Chiari malformation type I (HCC) 06/23/2025 Telephone [facility] Gastroenterology [address] [place] [address] [place] [address] Daiana Rodríguez, RMA rash from Last 3 Months Surgical History Surgery Date Site/Laterality Comments COLONOSCOPY 05/11/2020 [place] SINUS SURGERY 09/28/2016 Successful embolization of left [...] type I (HCC) CVA (cerebral vascular accident) ([facility]) 5 Had a second stroke 08/20/2015. [...] MRSA (methicillin resistant Staphylococcus aureus) Foot ulcer ([facility]) Cellulitis Measles Shingles Family History Medical History [...] Sister 1 Tess Bipolar disorder Sister 1 Etss defects Sister 1 Tess Bleeding Disorder Sister [...] Father's Brother 1 Father's Brother 2 Cameron [place] Father's Sister 1 Bonnie Father's Sister 2 [...] on file Legal Sex Female 10:13 AM RCIS Gender Identity Female 06/12/2023 3:27 PM CDT Sexual Orientation Lesbian 06/12/2023 3: 27 PM CDT Last Filed Vital Signs Vital Sign Reading Time Taken Comments Blood Pressure 114/74 09/09/2025 1:08 PM CDT Pulse 69 09/09/2025 1:08 PM CDT Temperature 36.7 C (98 F) 09/09/2025 1:08 PM CDT Respiratory Rate 16 04/06/2025 2:52 PM CDT Oxygen Saturation 100% 09/09/2025 1:08 PM CDT Inhaled Oxygen Concentration - - Weight 76.7 kg (169 lb 3.2 oz) 09/09/2025 1:08 P M CDT Height 165.1 cm (5' 5) 09/09/2025 1:08 PM CDT Body Mass Index 28.16 09/09/2025 1:08 PM CDT Plan of Treatment Scheduled Procedures Name Priority Associated Diagnoses Date/Ti me COLONOSCOPY Iron deficiency Health Maintenance Due Date Last Done Comments Breast Cancer Screening-Mammogram 1971 Cervical Cancer Screening 1971 Hepatitis C Screening 1971 Foot Exam 1971 DTaP/Tdap/Td Vaccine (1 - Tdap) 1982 Hepatitis B Screening 1989 Regular Well Visit/Exam 18-64 1989 Pneumococcal vaccine <65 (1 of 2 - PCV) 1990 Zoster Vaccine (1 of 2) 1990 Depression Screening 09/25/2023 09/25/2022, 04/24/20 22 Albumin Creatinine Ratio, Urine 10/09/2024 3 Dilated Eye Exam 11/30/2024 11/30/2023, , 08/09/2023 Influenza Vaccine (#1) 2025 Lung Cancer Screening 10/14/2025 10/13/2024 Hemoglobin A1C 02/07/2026 08/10/2025, 08/28/2023 Lipid Panel 08/10/2026 08/10/2025, 08/28/2023 eGFR 08/10/2026 08/10/2025, 07/21, 03/24/2024, Additional history exists Colon Cancer Screening-Colonoscopy 02/11/20352024, 03/14/2023 Goals Goal [...] as needed Medical Devices Implanted Type Area Play Therapist Device Identifier Shelf Expiration Date Model / Serial / Lot [employer] Lens Iol Cna0t0.230 [employer]onom Cna0t0.230 - [id number] - [id number] Implanted:Qty: 1 on 10/29/2023 by Melvin San MD at [facility] Left: Eye [employer] [id number] 06/25/2026 CNA0T0.23 0 / [id number] / Procedures Procedure Name Priority Date/Time Associated Diagnosis Comments ECG 12-LEAD Routine 09/09/2025 2:01 PM CDT Palpitations CORTISOL 60 MIN Timed 09/08/2025 8:40 AM CDT High risk medications (not anticoagulants) long-term use COSYNTROPIN STIMULATION TEST Timed 09/08/2025 8:40 AM CDT High risk medications (not anticoagulants) long-term use CORTISOL 30 MIN Timed 09/08/2025 8:10 AM CDT High risk medications (not anticoagulants) long-term use CORTISOL BASELINE Timed 09/08/2025 7:3 8 AM CDT High risk medications (not anticoagulants) long-term use US VEIN DUPLEX LOWER EXTREMITY LEFT LIMITED Schedule Routine, Read Routine (OP Routine) 08/12/2025 4:16 PM CDT Pain and swelling of left lower extremity EGFR Routine 08/10/2025 7:22 AM CDT Long-term use of high-risk medication CORTISOL Routine 08/10/2025 7:22 AM CDT Long-term use of high-risk medication HEMOGLOBIN A1C Routine 08/10/2025 7:22 AM CDT Prediabetes LIPID PANEL Routine 08/10/2025 7:22 AM CDT Prediabetes TSH Routine 08/10/2025 7:22 AM CDT Palpitations T4, FREE Routine 08/10/2025 7:22 AM CDT Palpitations VITAMIN D 25 HYDROXY Routine 08/10/2025 7:22 AM CDT Osteopenia, unspecified location VITAMIN B12 Routine 08/10/2025 7:22 AM CDT B12 deficiency MAGNESIUM Routine 08/10/2025 7:22 AM CDT Palpitations COMPREHENSIVE METABOLIC PANEL Routine 08/10/2025 7:22 AM CDT Long-term use of high-risk medication EGFR Routine 08/10/2025 7:15 AM CDT Iron deficiency anemia, unspecified iron deficiency anemia type DIFFERENTIAL AUTO Routine 08/10/2025 7:1 5 AM CDT Iron deficiency anemia, unspecified iron deficiency anemia type IRON PROFILE W/ IBC Routine 08/10/2025 7 :15 AM CDT Iron deficiency anemia, unspecified iron deficiency anemia type FERRITIN Routine 08/10/2025 7:15 AM CDT Iron deficiency anemia, unspecified iron deficiency anemia type COMPREHENSIVE METABOLIC PANEL Routine 08/10/2025 7:15 AM CDT Iron deficiency anemia, unspecified iron deficiency anemia type CBC WITH AUTO DIFFERENTIAL Routine 08/10/2025 7:15 AM CDT Iron deficiency anemia, unspecified iron deficiency anemia type XR SPINE THORACIC 4 OR MORE VIEWS Routine 07/28/2025 11:26 AM CDT Arthralgia, unspecified joint XR SPINE CERVICAL W FLEXION AND EXTENSION 4 VIEWS Routine 07/28/2025 11:26 AM CDT Arthralgia, unspecified joint XR SPINE LUMBAR COMPLETE 4 OR MORE VIEWS Routine 07/28/2025 11:26 AM CDT Arthralgia, unspecified joint XR SACROILIAC JOINTS 3 OR MORE VIEWS Routine 07/28/2025 11:26 AM CDT Arthralgia, unspecified joint ADALIMUMAB AB, S Routine 07/28/2025 10:5 0 AM CDT CRP (ACUTE PHASE) Routine 07/28/2025 10: 50 AM CDT Crohn's disease of both small and large intestine with other complication ADALIMUMAB QUANTITATIVE WITH REFLEX TO ANTIBODY, SERUM Routine 07/28/2025 10:50 AM CDT Crohn's disease of both small and large intestine with other complication COLONOSCOPY 02/11/2025 9:[address] LUNG CANCER SCREENING Schedule Routine, Read Routine (OP Routine) 10/13/2024 4:36 PM RCIS Nicotine dependence, cigarettes, in remission ALBUMIN CREATININE RATIO, URINE Routine 10/09/2023 11:48 AM RCIS Prediabetes from Last 3 Months or Most Recently Relevant to Health Maintenance Results * ECG 12 lead (09/09/2025 2:01 PM CDT) us Baljit Pineda MD ECG ORDERABLES Final Result * Cortisol 60 min (09/08/2025 8:40 AM CDT) [facility] Cortisol, 60 min 17.1 mcg/dL Comment: Interpretive Data Reference Values Cortisol cutoff of 14-15 ug/dL for cortrosyn stimulation testing. Lack of normal response can be seen in both primary and secondary adrenal failure. Some patients with secondary adrenal failure have normal response to cortrosyn. If pituitary disease is known or strongly suspected e.g. after pituitary surgery), the cortrosyn test alone should not be relied on to exclude adrenal failure. Literature References: 1. Rodolfo BR, Yessenia H, Manuel TB, et al. New cutoffs for the biochemical diagnosis of adrenal insufficiency after ACTH stimulation using specific cortisol assays. J Endocr Soc. 2020;5(4):bexy937. 2. Geovanny GARCIAP and Pat APARICIO. New cutoffs for the biochemical diagnosis of Adrenal insufficiency after ACTH stimulation using specific cortisol assays. J. Endocrine Soc 2020;5:1-2. Current interpret data was last revised 24 Blood 09/08/2025 8:40 AM CDT 09/08/2025 11:42 AM CDT Narrative [facility] - 09/08/2025 12:33 PM CDT Obtain pre, 30 minutes, and 60 minutes post cosyntropin adminstration. us Lana Carmona DO LAB BLOOD ORDERABLES Fi nal Result [facility] One [facility] Department [place] [address] * Cortisol 30 min (09/08/2025 8:10 AM CDT) Cortisol, 30 min 16.5 mcg/dL Comment: Interpretive Data Reference Values Cortisol cutoff of 14-15 ug/dL for cortrosyn stimulation testing. Lack of normal response can be seen in both primary and secondary adrenal failure. Some patients with secondary adrenal failure have normal response to cortrosyn. If pituitary disease is known or strongly suspected e.g. after pituitary surgery), the cortrosyn test alone should not be relied on to exclude adrenal failure. Literature References: 1. Rodolfo BR, Yessenia H, Manuel TB, et al. New cutoffs for the biochemical diagnosis of adrenal insufficiency after ACTH stimulation using specific cortisol assays. J Endocr Soc. 2020;5(4):duzd000. 2. Geovanny GARCIAP and Pat APARICIO. New cutoffs for the biochemical diagnosis of Adrenal insufficiency after ACTH stimulation using specific cortisol assays. J. Endocrine Soc 2020;5:1-2. Current interpret data was last revised 24 Blood 09/08/2025 8:10 AM CDT 09/08/2025 11:42 AM CDT Narrative [facility] 09/08/2025 12:33 PM CDT Obtain pre, 30 minutes, and 60 minutes post cosyntropin adminstration. Lana Carmona [employer] LAB BLOOD ORDERABLES Fi nal Result Performing Organization Address City/[facility] Co de Phone Number [facility] One [facility] Department [place] [address] * Cortisol baseline (09/08/2025 7:38 AM CDT) Cortisol, base 11.7 mcg/dL Blood 09/08/2025 7:38 AM CDT 09/08/2025 11:41 AM CDT Narrative [facility] 09/08/2025 12:32 PM CDT Obtain pre, 30 minutes, and 60 minutes post cosyntropin adminstration. Lanarichard Salazar Mathew DO LAB BLOOD ORDERABLES Fi nal Result [facility] Department [place] [address] * US Vein Duplex Lower Extremity Left Limited (08/12/2025 4:16 PM CDT) Anatomical Region Laterality Modality Vascular Left Ultrasound 08/12/2025 3:57 PM CDT Narrative 08/13/2025 2:00 PM CDT [facility] - Department of Vascular Surgery, Vascular Laboratory [address] [place] [id number] Lower Extremity Venous Ultrasound Report Patient Name: ALEXANDRU THOMAS : 1970 (54y 9m) Study Date: 08/12/2025 3:57:12 PM Sex: F Tech: BAD Location: [facility] Ref Provider: LIANA YE Quality: Adequate Order Provider: LIANA YE PROCEDURES: Vascular Report: Venous Duplex imaging was performed in the left lower extremity. The common femoral, femoral, popliteal, posterior tibial, peroneal veins were evaluated for patency, spontaneity and phasicity with Doppler, compression and augmentation maneuvers. Great saphenous vein proximal at the junction was evaluated with compression maneuvers. INDICATIONS: M79.605 Pain in left leg and M79.89 Other specified soft tissue disorders. FINDINGS: Performing Bobbin Winder Tender: Jeannie Thornton RVT. Left: Venous Doppler signals in the left lower extremity are within normal limits for spontaneity and phasicity and respond normally to augmentation maneuvers. No evidence of deep vein thrombus by duplex, proximal to the calf. Comments: Contralateral common femoral vein is imaged for comparison and is patent. Unilateral (limited study) performed per M.D. order. CONCLUSIONS: 1. There is no evidence of acute deep vein thrombosis on the left. Noninvasive venous studies cannot rule out isolated calf vein obstruction. HISTORY: Patient states she had a LLE calf DVT at an outside facility in early july of this year. PREVIOUS STUDIES: Previous study performed on 07/18/2019 Negative for DVT bilateral LE's done at an outside facility - DISCLAIMER: The study images and the final report will be retained in the patient chart by the Vascular Laboratory for the legally required time period. This chart constitutes the legal record of any testing performed. ATTESTATION: I have reviewed and interpreted the pertinent images and measurements of this study. I attest to the conclusions in the final report that is provided above. Electronically Signed By: Suraj Giraldo MD [facility] [phone] 08/13/2025 1:29:59 PM CDT Procedure Note Suraj Giraldo MD - 08/13/2025 [employer] [facility] - Department of Vascular Surgery,Vascular Laboratory [address] [place] [address] Lower Extremity Venous Ultrasound Report Patient Name: ALEXANDRU THOMAS : 1970 (54y 9m) Study Date: 08/12/2025 3:57:12 PM Sex: F Tech: BAD Location: [facility] Ref Provider: LIANA YE Quality: Adequate Order Provider: LIANA YE PROCEDURES: Vascular Report: Venous Duplex imaging was performed in the left lower extremity. Thecommon femoral, femoral, popliteal, posterior tibial, peroneal veins were evaluated forpatency, spontaneity and phasicity with Doppler, compression and augmentationmaneuvers. Great saphenous vein proximal at the junction was evaluated with compressionmaneuvers. INDICATIONS: M79.605 Pain in left leg and M79.89 Other specified soft tissuedisorders. FINDINGS: Performing Bobbin Winder Tender: Jeannie Thornton RVT. Left: Venous Doppler signals in the left lower extremity are within normallimits for spontaneity and phasicity and respond normally to augmentation maneuvers.No evidence of deep vein thrombus by duplex, proximal to the calf. Comments: Contralateral common femoral vein is imaged for comparison and is patent.Unilateral (limited study) performed per M.D. order. CONCLUSIONS: 1. There is no evidence of acute deep vein thrombosis on the left.Noninvasive venous studies cannot rule out isolated calf vein obstruction. HISTORY: Patient states she had a LLE calf DVT at an outside facility in earlyjuly of this year. PREVIOUS STUDIES: Previous study performed on 07/18/2019 Negative for DVT bilateral LE's doneat an outside facility - DISCLAIMER: The study images and the final report will be retained in the patientchart by the Vascular Laboratory for the legally required time period. This chartconstitutes the legal record of any testing performed. ATTESTATION: I have reviewed and interpreted the pertinent images and measurements ofthis study. I attest to the conclusions in the final report that is provided above. Electronically Signed By: Suraj Giraldo MD [facility] [phone] 08/13/2025 1:29:59 PM CDT us Liana Ye MD IMG US PROCEDURES Final Res ult * eGFR (08/10/2025 7:22 AM CDT) eGFR 88 >=60 mL/min/1. 73 m2 Comment: Interpretive Data Reference Interval Normal >/= 90 mL/min/1.73m2 Mildly decreased* 60 - 89 mL/min/1.73m2 Mildly to moderately decreased 45 - 59 mL/min/1.73m2 Moderately to severely decreased 30 - 44 mL/min/1.73m2 Severely decreased 15 - 29 mL/min/1.73m2 Kidney Failure < 15 mL/min/1.73m2 *Relative to young adult level Estimated glomerular filtration rate is determined by the 2020 CKD-EPI equation recommended by the National Kidney Foundation (A Unifying Approach to GFR Estimation: Recommendations of the NKF-ASK Task Force on Reassessing the Inclusion of Race in Diagnosing Kidney Disease, JASN 2020). The CKD-EPI equation should not be used for patients with unstable renal function and has not been validated in children and those over 70. Current interpretive data was last reviewed 2021. Testing performed by: [facility], [address] [place] [address] Blood 08/10/2025 7:22 AM CDT 08/10/2025 7:44 AM CDT Lana Carmona DO LAB BLOOD ORDERABLES Fi nal Result Performing Organization Address City/State/[facility] Co de Phone Number [facility] BJWCH [address] Michelle. Department [place] [address] * Vitamin D 25 hydroxy (08/10/2025 7:22 AM CDT) Vitamin D 25-OH 80 30 - 80 ng/mL Comment:Testing performed by : [facility], [address] [place] [address] Blood 08/10/2025 7:22 AM CDT 08/10/2025 7:44 AM CDT Lana Carmona LAB BLOOD ORDERABLES Fi nal Result Performing Organization Address [facility] Co de Phone Number SYDNEY ARNOLDCH [address] [address] [facility]. [facility] [place] [address] * TSH (08/10/2025 7:22 AM CDT) Thyroid Stimulating Hormone 1.62 0.30 - 4.20 mcIUnit/mL Comment:Testing performed by : [facility], [address] [place] [address] Blood 08/10/2025 7:22 AM CDT 08/10/2025 7:44 AM CDT [facility] LAB BLOOD ORDERABLES Fi nal Result Performing Organization Address [facility] de Phone Number SYDNEY ARNOLDCH [address] [address] [place] [facility]. [facility] [place] [address] * T4, free (08/10/2025 7:22 AM CDT) Free T4 1.01 0.90 - 1.70 ng/dL Comment:Testing performed by : [facility], [address] [place] [address] Blood 08/10/2025 7:22 AM CDT 08/10/2025 7:44 AM CDT [facility] LAB BLOOD ORDERABLES Fi nal Result Performing Organization Address City/[facility] Co de Phone Number SYDNEY BJWCH [address] [address] [facility]. [facility] [place] [address] * Magnesium (08/10/2025 7:22 AM CDT) Magnesium 2.0 1.4 - 2.5 mg/dL Comment: Reference Data. Reference values for Labor and Delivery patients: < or = 0.7 mg/dL to > or = 7.3 mg/dL Current reference data last reviewd on 08/18/2015. Testing performed by: [facility], [address] [place] [address] Blood 08/10/2025 7:22 AM CDT 08/10/2025 7:44 AM CDT Lana Carmona LAB BLOOD ORDERABLES Fi nal Result Performing Organization Address City/[facility]/ZIP Co de Phone Number SYDNEY [facility] [address] [address] [facility]. [place] [place] [address] * Hemoglobin A1c (08/10/2025 7:22 AM CDT) Pathologist [facility] Hgb A1C 5.4 4.0 - 5.6 % Comment:Testing performed by : [facility], [address] [place] [address] Estimated Average Glucose 108 mg/dL SYDNEY BOSTON Comment: The ADA recommends reporting an estimated Average Glucose (eAG) with all Hemoglobin A1c results using the equation derived from a study of 507 normal and diabetic adults. Minority populations were underrepresented and children were not included. (Diabetes Care 31:7892-6365, 2008). The eAG is not equivalent to a fasting glucose. Testing performed by: [facility], [address] [place] [address] Blood 08/10/2025 7:22 AM CDT 08/10/2025 7:44 AM CDT Lanarichard Salazar Mathew DO LAB BLOOD ORDERABLES Fi nal Result Performing Organization Address City/[facility]/ZIP Co de Phone Number SYDNEY BJWCH [address] [address] [facility]. [place] [address] * (ABNORMAL) Vitamin B12 (08/10/2025 7:22 AM CDT) Vitamin B12 222(L) 230 - 1,250 pg/mL Comment:Testing performed by : [facility], [facility], [place]., [address] Blood 08/10/2025 7:22 AM CDT 08/10/2025 10:06 AM CDT Lana Carmona LAB BLOOD ORDERABLES Fi nal Result SYDNEY [facility] [address] [facility] [facility] [place] [address] * Cortisol (08/10/2025 7:22 AM CDT) Cortisol 12.3 4.8 - 19.5 mcg/dl Comment:Testing performed by : [facility], [facility]5 [place]., [address] Blood 08/10/2025 7:22 AM CDT 08/10/2025 10:06 AM CDT [facility] LAB BLOOD ORDERABLES Fi nal Result Performing Organization Address City/[facility] Co de Phone Number [facility] [address] [facility] [facility] [place] [address] * (ABNORMAL) Lipid panel (08/10/2025 7:22 AM CDT) Cholesterol 211(H) 30 - 199 mg/dL Comment: Interpretive Data Ages < or = 19 years Acceptable: <170 mg/dL Borderline high: 170-199 mg/dL High: >or= 200 mg/dL Ages > or = 20 years Desirable: <200 mg/dL Borderline high: 200-239 mg/dL High: >or= 240 mg/dL Literature References: 1. Expert Panel on Integrated Guidelines for Cardiovascular Health and Risk Reduction in Children and Adolescents. Pediatrics 2011;128:S213 2. NCEP Expert Panel. Circulation 2004;110:227 Current Interpretive Data was last revised on 2018. Testing performed by: [facility], [address] [facility], [place] [address] Triglycerides 147 <=149 mg/dL SYDNEY RAMIREZCH Comment: Interpretive Data Ages < or = 9 years Acceptable: <75 mg/dL Borderline high: 75-99 mg/dL High: >or= 100 mg/dL Ages 10 to 20 years Acceptable: <90 mg/dL Borderline high: 90-129 mg/dL High: >or= 130 mg/dL Ages > or = 20 years Desirable: <150 mg/dL Borderline high: 150-199 mg/dL High: 200-499 mg/dL Very high: >or= 499 mg/dL Literature References: 1. Expert Panel on Integrated Guidelines for Cardiovascular Health and Risk Reduction in Children and Adolescents. Pediatrics 2011;128:S213 2. NCEP Expert Panel. Circulation 2004;110:227 Current Interpretive Data was last revised on 2018. Testing performed by: [facility], [address], [place] [address] HDL 37(L) >=40 mg/dL SYDNEY BOSTON Comment: Interpretive Data Ages < or = 19 years Acceptable: >45 mg/dL Borderline low: 40-45 mg/dL Low: <40 mg/dL Ages > or = 20 years Desirable: >or= 60 mg/dL Low: <40 mg/dL Literature References: 1. Expert Panel on Integrated Guidelines for Cardiovascular Health and Risk Reduction in Children and Adolescents. Pediatrics 2011;128:S213 2. NCEP Expert Panel. Circulation 2004;110:227 Current Interpretive Data was last revised on 2018. Testing performed by: [facility], [address], [place] [address] LDL, calculated 147(H) <=129 mg/dL SYDNEY BOSTON Comment: Interpretive Data Ages < or = 19 years Acceptable: <110 mg/dL Borderline high: 110-129 mg/dL High: >or= 130 mg/dL Ages > or = 20 years Optimal: <100 mg/dL Near optimal: 100-129 mg/dL Borderline high: 130-159 mg/dL High: >160 mg/dL Calculated using the Favian LDL-C estimating equation. This equation was implemented on 2024. Prior to this date LDL-C was estimated using the Friedewald equation. Literature References: 1. Expert Panel on Integrated Guidelines for Cardiovascular Health and Risk Reduction in Children and Adolescents. Pediatrics 2011;128:S213 2. NCEP Expert Panel. Circulation 2004;110:227 3. Favina Fenton et al. FAISAL Cardiol. 2020 March 19;5(5):540-548. doi: 10.1001/jamacardio.2020.0013 Current Interpretive Data was last revised on 2024. Testing performed by: [facility], [address] [place] [address] Non-HDL Cholesterol 174 mg/dL SYDNEY BOSTON Comment: Interpretive Data Ages < or = 19 years Acceptable: <120 mg/dL Borderline high: 120-144 mg/dL High: >145 mg/dL Ages > or = 20 years When triglycerides are >200 mg/dL, Non-HDL cholesterol is a secondary target of therapy with treatment goals that are 30 mg/dL greater than the LDL cholesterol target. Literature References: 1. Expert Panel on Integrated Guidelines for Cardiovascular Health and Risk Reduction in Children and Adolescents. Pediatrics 2011;128:S213 2. NCEP Expert Panel. Circulation 2004;110:227 Current Interpretive Data was last revised on 2018. Testing performed by: [facility], [address] [place] [address] Chol/HDL ratio 6 SYDNEY BOSTON Comment:Testing performed by : [facility], [address] [place] [address] Blood 08/10/2025 7:22 AM CDT 08/10/2025 7:44 AM CDT Lana Cramona DO LAB BLOOD ORDERABLES Fi nal Result [facility] [address] [address]. Department [place] [address] * (ABNORMAL) Comprehensive metabolic panel (08/10/2025 7:22 AM CDT) [facility] Sodium 139 135 - 145 mmol/L Comment:Testing performed by : [facility], [address] [place] [address] Potassium, pl 4.2 3.3 - 4.9 mmol/L SYDNEY BOSTON Comment:Testing performed by : [facility], [address], [place] [address] Chloride 105 97 - 110 mmol/L CERNER BJWCH Comment:Testing performed by : [facility], [address], [place] [address] CO2 23 22 - 32 mmol/L CERNER BJWCH Comment:Testing performed by : [facility], [address], [place] [address] Anion gap 11 2 - 15 mmol/L CERNER BJWCH Comment:Testing performed by : [facility], [address], [place] [address] BUN 12 6 - 25 mg/dL CERNER BJWCH Comment:Testing performed by : [facility], [address], [place] [address] Creatinine 0.80 0.60 - 1.10 mg/dL CERNER BJWCH Comment:Testing performed by : [facility], [address], [place] [address] Glucose 102 70 - 199 mg/dL CERNER BJWCH Comment: Interpretive Data Fasting glucose >/= 126 mg/dl is diagnostic for diabetes. Fasting is defined as no caloric intake for at least 8 hours. Fasting glucose between 100 mg/dl to 125 mg/dl is diagnostic of prediabetes. In a patient with classic symptoms of hyperglycemia or hyperglycemic crisis, a random glucose >/= 200 mg/dl is diagnostic for diabetes. In the absence of unequivocal hyperglycemia, results should be confirmed by repeat testing. The classification and Diagnosis of Diabetes Diabetes Care 202; 46: S19-S40. Current interpretive data was last revised 2022. Testing performed by: [facility], [address], [place] [address] Calcium 8.6 8.5 - 10.3 mg/dL CERNER BJWCH Comment:Testing performed by : [facility], [address], [place] [address] Bilirubin, total 0.3 0.1 - 1.2 mg/dL CERNER BJWCH Comment:Testing performed by : [facility], [address], [place] [address] Protein, pl 6.0(L) 6.5 - 8.5 g/dL CERNER BJWCH Comment:Testing performed by : [facility], [address], [place] [address] Albumin 3.7 3.5 - 5.0 g/dL CERNER BJWCH Comment:Testing performed by : [facility], [address], [place] [address] Alk phos 76 40 - 130 Units/L CERNER BJWCH Comment:Testing performed by : [facility], [address], [place] [address] ALT 11 7 - 45 Units/L CERNER BJWCH Comment:Testing performed by : [facility], [address], [place] [address] AST 16 10 - 45 Units/L CERNER BJWCH Comment:Testing performed by : [facility], [address], [place] [address] Blood 08/10/2025 7:22 AM CDT 08/10/2025 7:44 AM CDT us Lana Carmona DO LAB BLOOD ORDERABLES Fi nal Result SYDNEY ARNOLDCH [address] [address]. Department [place] [address] * eGFR (08/10/2025 7:15 AM CDT) eGFR >90 >=60 mL/min/1. 73 m2 Comment: Interpretive Data Reference Interval Normal >/= 90 mL/min/1.73m2 Mildly decreased* 60 - 89 mL/min/1.73m2 Mildly to moderately decreased 45 - 59 mL/min/1.73m2 Moderately to severely decreased 30 - 44 mL/min/1.73m2 Severely decreased 15 - 29 mL/min/1.73m2 Kidney Failure < 15 mL/min/1.73m2 *Relative to young adult level Estimated glomerular filtration rate is determined by the 2020 CKD-EPI equation recommended by the National Kidney Foundation (A Unifying Approach to GFR Estimation: Recommendations of the NKF-ASK Task Force on Reassessing the Inclusion of Race in Diagnosing Kidney Disease, JASN 202). The CKD-EPI equation should not be used for patients with unstable renal function and has not been validated in children and those over 70. Current interpretive data was last reviewed 2021. Testing performed by: [facility], [address] [place] [address] Blood 08/10/2025 7:15 AM CDT 08/10/2025 7:44 AM CDT us Elle Medel RURAL SOCIOLOGIST LAB BLOOD ORDERABLES Final Result SYDNEY BOSTON [address] [address]. [place] [address] * Differential, auto (08/10/2025 7:15 AM CDT) Neutrophil abs 2.79 1.50 - 6.50 K/cumm Comment:Testing performed by : [facility], [facility], [address] [place] [address] Imm gran abs 0.02 0.00 - 0.10 K/cumm SYDNEY BOSTON Comment:Testing performed by : [facility], [address] [place] [address] Lymphocyte abs 1.88 0.80 - 3.30 K/cumm SYDNEY BOSTON Comment:Testing performed by : [facility], [facility], [address] [place] [address] Monocyte abs 0.43 0.20 - 0.80 K/cumm SYDNEY BOSTON Comment:Testing performed by : [facility], [address] [place] [address] Eosinophil abs 0.20 0.00 - 0.50 K/cumm SYDNEY BOSTON Comment:Testing performed by : [facility], [address], [place] [address] Basophil abs 0.02 0.00 - 0.10 K/cumm CERNER BJWCH Comment:Testing performed by : [facility], [facility], [address] [place] [address] Neutrophil pct 52.2 % CERNER BJWCH Comment: Interpretive Data Percent cell count reference ranges are not reported, since discordance with absolute values may lead to misinterpretation of CBC data. Current Interpretive Data was last revised on 2018. Testing performed by: [facility], [facility], [address] [place] [address] Imm gran pct 0.4 % CERNER BJWCH Comment: Interpretive Data Percent cell count reference ranges are not reported, since discordance with absolute values may lead to misinterpretation of CBC data. Current Interpretive Data was last revised on 2018. Testing performed by: [facility], [facility], [address] [place] [address] Lymphocyte pct 35.2 % CERNER BJWCH Comment: Interpretive Data Percent cell count reference ranges are not reported, since discordance with absolute values may lead to misinterpretation of CBC data. Current Interpretive Data was last revised on 2018. Testing performed by: [facility], [facility], [address] [place] [address] Monocyte pct 8.1 % CERNER BJWCH Comment: Interpretive Data Percent cell count reference ranges are not reported, since discordance with absolute values may lead to misinterpretation of CBC data. Current Interpretive Data was last revised on 2018. Testing performed by: [facility], [facility], [address] [place] [address] Eosinophil pct 3.7 % CERNER BJWCH Comment: Interpretive Data Percent cell count reference ranges are not reported, since discordance with absolute values may lead to misinterpretation of CBC data. Current Interpretive Data was last revised on 2018. Testing performed by: [facility], [facility], [address] [place] [address] Basophil pct 0.4 % CERNER BJWCH Comment: Interpretive Data Percent cell count reference ranges are not reported, since discordance with absolute values may lead to misinterpretation of CBC data. Current Interpretive Data was last revised on 2018. Testing performed by: [facility], [facility], [address] [place] [address] Blood 08/10/2025 7:15 AM CDT 08/10/2025 7:16 AM CDT Elle Medel RURAL SOCIOLOGIST LAB BLOOD ORDERABLES Final Result SYDNEY HuddleAppWCH [address] [employer] [address] * Iron profile w/ IBC (08/10/2025 7:15 AM CDT) Iron 66 35 - 145 mcg/dL Comment:Testing performed by : [facility], [address] [place] [address]., [address] TIBC 294 250 - 400 mcg/dL SYDNEY BOSTON Comment:Testing performed by : [facility], [address] [place] [address]., [address] Transferrin saturation 22 20 - 50 % SYDNEY BOSTON Comment:Testing performed by : [facility], [address] [place] [address]., [address] Blood 08/10/2025 7:15 AM CDT 08/10/2025 10:06 AM CDT Elle Medel RURAL SOCIOLOGIST LAB BLOOD ORDERABLES Final Result Performing Organization Address City/[facility]/ZIP Co de Phone Number SYDNEY BJWCH [address] [employer]. [place] [address] * (ABNORMAL) CBC with auto differential (08/10/2025 7:15 AM CDT) WBC 5.34 3.80 - 9.90 K/cumm Comment:Testing performed by : [facility], [facility], [address] [place] [address] Hgb 12.5 11.9 - 15.5 g/dL CERNER BJWCH Comment:Testing performed by : [facility], [address] [place] [address] Hct 36.6 35.6 - 45.5 % CERNER BJWCH Comment:Testing performed by : [place] [address], [address], [place] [address] Plt 227 150 - 400 K/cumm CERNER BJWCH Comment:Testing performed by : [place] [address], [address], [place] [address] MPV 9.8 9.1 - 12.3 fL CERNER BJWCH Comment:Testing performed by : [place] [address], [address], [place] [address] RBC 3.74(L) 3.90 - 5.20 M/cumm CERNER BJWCH Comment:Testing performed by : [place] [address], [address] [place] [address] MCV 97.9(H) 81.3 - 96.4 fL CERNER BJWCH Comment:Testing performed by : [facility], [address] [place] [address] MCH 33.4(H) 27.1 - 33.3 pg CERNER BJWCH Comment:Testing performed by : [place] [address], [address] [place] [address] MCHC 34.2 32.3 - 35.7 g/dL CERNER BJWCH Comment:Testing performed by : [place] [address], [address], [place] [address] RDW CV 14.4 11.1 - 14.9 % CERNER BJWCH Comment:Testing performed by : [facility], [address], [place] [address] RDW SD 52.0(H) 35.7 - 48.1 fL CERNER BJWCH Comment:Testing performed by : [facility], [facility], [address] [place] [address] ANC Prelim 2.79 1.50 - 6.50 K/cumm SYDNEY BOSTON Comment: Interpretive Data The rapid ANC is a preliminary automated count and may vary from the final ANC (Neut Abs) reported in the WBC differential that follows. Current interpretive data was last revised 2025. Testing performed by: [facility], [facility], [address] [place] [address] Morphologic Screen Results confirmed by manual morphology review. SYDNEY BOSTON Comment:Testing performed by : [facility], [facility], [address] [place] [address] Blood 08/10/2025 7:15 AM CDT 08/10/2025 7:16 AM CDT Elle Medel NP LAB BLOOD ORDERABLES Edited Result - Final Performing Organization Address City/[facility]/ZIP Co de Phone Number SYDNEY ARNOLDCH [address] [place] [employer] [address] * Ferritin (08/10/2025 7:15 AM CDT) Pathologist [facility] Ferritin 64 13 - 150 ng/mL Comment:Testing performed by : [facility], [facility]5 [facility], [place]., [address] Blood 08/10/2025 7:15 AM CDT 08/10/2025 10:06 AM CDT Elle Medel NP LAB BLOOD ORDERABLES Final Result SYDNEY ARNOLDCH [address] [employer]. [facility] [place] [address] * (ABNORMAL) Comprehensive metabolic panel (08/10/2025 7:15 AM CDT) Pathologist [facility] Sodium 142 135 - 145 mmol/L Comment:Testing performed by : [facility], [address], [place] [address] Potassium, pl 4.5 3.3 - 4.9 mmol/L CERNER BJWCH Comment:Testing performed by : [facility], [address], [place] [address] Chloride 108 97 - 110 mmol/L CERNER BJWCH Comment:Testing performed by : [facility], [address], [place] [address] CO2 23 22 - 32 mmol/L [facility] Comment:Testing performed by : [facility], [address], [place] [address] Anion gap 11 2 - 15 mmol/L [facility] Comment:Testing performed by : [facility], [address], [place] [address] BUN 12 6 - 25 mg/dL [facility] Comment:Testing performed by : [facility], [address], [place] [address] Creatinine 0.78 0.60 - 1.10 mg/dL [facility] Comment:Testing performed by : [facility], [address], [place] [address] Glucose 96 70 - 199 mg/dL [facility] Comment: Interpretive Data Fasting glucose >/= 126 mg/dl is diagnostic for diabetes. Fasting is defined as no caloric intake for at least 8 hours. Fasting glucose between 100 mg/dl to 125 mg/dl is diagnostic of prediabetes. In a patient with classic symptoms of hyperglycemia or hyperglycemic crisis, a random glucose >/= 200 mg/dl is diagnostic for diabetes. In the absence of unequivocal hyperglycemia, results should be confirmed by repeat testing. The classification and Diagnosis of Diabetes Diabetes Care 2021; 46: S19-S40. Current interpretive data was last revised 2022. Testing performed by: [facility], [address], [place] [address] Calcium 8.9 8.5 - 10.3 mg/dL [facility] Comment:Testing performed by : [facility], [address], [place] [address] Bilirubin, total 0.3 0.1 - 1.2 mg/dL [facility] Comment:Testing performed by : [facility], [address], [place] [address] Protein, pl 6.4(L) 6.5 - 8.5 g/dL [facility] Comment:Testing performed by : [facility], [address], [place] [address] Albumin 3.9 3.5 - 5.0 g/dL [facility] Comment:Testing performed by : [facility], [address], [place] [address] Alk phos 72 40 - 130 Units/L [facility] Comment:Testing performed by : [facility], [address], [place] [address] ALT 10 7 - 45 Units/L [facility] Comment:Testing performed by : [facility], [address], [place] [address] AST 16 10 - 45 Units/L [facility] Comment:Testing performed by : [facility], [address], [place] [address] Blood 08/10/2025 7:15 AM CDT 08/10/2025 7:44 AM CDT Elle Medel NP LAB BLOOD ORDERABLES Edited Result - Final [facility] [id number] Department [place] [address] * XR Spine Cervical W Flexion And [...] MD IMG XR PROCEDURES Final Result * Adalimumab ab, serum (07/28/2025 10:50 AM CDT) Pathologist [facility] Adalimumab ab, s <10.0 <14.0 A Units/mL [facility] Comment: Absence of detectable wliojscd-fu-lfuyupvnho. Low concentration of adalimumab may be attributable to other parameters related to adalimumab clearance. ADDITIONAL INFORMATION This test was developed and its performance characteristics determined by [facility] in a manner consistent with CLIA requirements. This test has not been cleared or approved by the U.S. Food and Drug Administration. Test Performed by: [facility] [place] [address] Coat Joiner: Ezequiel Taylor Ph.D.; CLIA# [id number] Blood 07/28/2025 10:5 0 AM CDT 07/28/2025 12:13 PM CDT Montrell Kern MD LAB BLOOD ORDERABLES Final Resul t CERNER [facility] Department [place] [address] [facility] * (ABNORMAL) Adalimumab quantitative with reflex to antibody, serum (07/28/2025 10:50 AM CDT) ADALX Quant 4.9(L) mcg/mL [facility] Comment: For concentrations of adalimumab less than or equal to 8.0 mcg/mL, reflex testing for xmpnbwwhvv-qt-stxpwqapmu will be performed. REFERENCE VALUE Limit of Quantitation = 0.8 mcg/mL ADDITIONAL INFORMATION This test was developed and its performance characteristics determined by [facility] in a manner consistent with CLIA requirements. This test has not been cleared or approved by the U.S. Food and Drug Administration. Test Performed by: [facility] [address] [id number] Coat Joiner: Ezequiel Taylor Ph.D.; CLIA# [id number] Blood 07/28/2025 10:5 0 AM CDT 07/28/2025 12:13 PM CDT Montrell Kern MD LAB BLOOD ORDERABLES Final Resul t Performing Organization Address City/[facility]/ZIP Co de Phone Number [facility] [place] [address] [facility] * CRP (acute phase) (07/28/2025 10:50 AM CDT) CRP 1.9 <=10.0 mg/L Blood 07/28/2025 10:5 0 AM CDT 07/28/2025 11:26 AM CDT Corazon Becerra NP LAB BLOOD ORDERABLES Final Result Performing Organization Address [facility] Phone Number [facility] [place] [address] * Colonoscopy (02/11/2025 9:16 AM CDT) Anatomical Region Laterality Modality Other Narrative Procedure Note Montrell Kern MD - 02/11/2025 9:16 AM CDT ENDOSCOPY LAB Patient Name: Alexandru Thomas Procedure Date: 02/11/2025 9:16 AM Date of : 1970 Admit Type: Outpatient Age: 54 Gender: Female Attending MD: Montrell Kern M.D. Room: [facility] ENDOSCOPY ROOM 05 Note Status: Finalized [...] The scope was passed under direct vision.The [id number] was introduced through the anusand advanced to [...] histology. There was evidence of a prior hnov-cp-gegc ileo-colonic anastomosisin the ascending colon. This was [...] to quiescent Crohn's disease. Biopsied. - Patent fmrc-yn-evmj ileo-colonic anastomosis, characterized by healthy appearing mucosa.Biopsied. [...] business hours - Please call theNurse Coordinator: [phone]. After hours, evening, nights, weekends and holidays- Please call the hospital gravel machine operator at and ask for the GI fellow community relations assistant. Attending Participation: I personally performed the entire procedure. Electronically signed by Montrell Kenr MD Montrell Kern M.D. 02/11/2025 10:11:17 AM Number of Addenda: 0 Note Initiated On: 02/11/2025 9:16 AM Montrell Kern MD ENDOSCOPY PROCEDURES Final Resul t * CT Lung Cancer Screening (10/13/2024 4:36 PM [facility]) Anatomical Region Laterality Modality Chest N/A Computed Tomogra phy 10/17/2024 8:06 AM [facility] Narrative 10/17/2024 8:07 AM [facility] EXAM DESCRIPTION: CT LUNG CANCER SCREENING REASON [...] by David Ortiz M.D. SN: Report ID: [id number] Reading Location: [id number] Procedure Note David Ortiz MD - 10/17/2024 [...] by David Ortiz M.D. SN: Report ID: [id number] Reading Location: [id number] Zia Hearn DO IMG CT PROCEDURES Final R esult * Albumin Creatinine Ratio, Urine (10/09/2023 11:48 AM [facility]) Albumin Ur <12.0 mg/L [facility] Comment: Interpretive Data No reference range established. Current interpretive data was last revised 2019. Creatinine Ur 161.6 mg/dL [facility] Comment: Interpretive Data No reference range established. Current interpretive data was last revised 2019. Albumin Creatinine Ratio, Ur <7 1 - 29 mg/g [facility] Urine 10/09/2023 11:4 8 AM [facility] 10/09/2023 1:43 PM [facility] us Lana Carmona DO LAB URINE ORDERABLES Fi nal Result [facility] Department [place] [address] from Last 3 Months or Most Recently Relevant to Health Maintenance [place] Advance Directives For more information, please contact: [phone] * Full Code (Latest Code Status on File) Date Activated Date Inactivated Comments 02/11/2025 8:23 AM 02/11/2025 2:57 PM * Full Code Date Activated Date Inactivated Comments 03/14/2023 9:25 AM 03/14/2023 4:21 PM Care Teams Manufacturer Representative Relationship Specialty Start Date End Date Kassandra Hooks NP PCP - General Nurse Practitioner 08/27/24 Lucho Peralta MD Referring Physician Otolaryngology 12/07/23
--- OUTSIDE RECORDS SUMMARY | 2025-09-22 15:55 | XMS_ITS | Clinical Summary ---
Author Organization [facility] Juju Mensah Address [address] [place] [address] Care Team Providers Care Helmet Coverer Name Role Phone RodrigoJesus mena Primary Care Provider [phone] Allergies Active Allergy Reactions Criticality Noted Date Comments Hydrocodone-Acetaminop hen Other (See Comments),Nausea and Vomiting High 05/29/2016 [place] Latex Itching High 08/10/2016 Lidocaine-Transparent Dressing Itching Low 08/10/2016 Sulfa (Sulfonamide Antibiotics) Other (See Comments) Medium 02/18/2019 Rectal bleeding Medications pantoprazole (PROTONIX) 40 mg Tablet, Delayed Release (E.C.) 01/09/2022 Acti ve apixaban (ELIQUIS) 5 mg tablet Take 5 mg by mouth 2 times daily. 07/22/2019 Active albuterol (PROVENTIL,VENTOL IN) 2.5 mg /3 mL (0.083 %) Solution for Nebulization 06/09/2024 Active ALPRAZolam (XANAX) 0.5 mg tablet Take 0.5 mg by mouth. 07/31/2024 Active aspirin (ECOTRIN EC) 81 mg Tablet, Delayed Release (E.C.) Take 81 mg by mouth. Active ciprofloxacin-dex AMETHasone (CIPRODEX) 0.3-0.1 % Drops, Suspension 08/27/2025 Active eszopiclone (LUNESTA) 3 mg Tablet Take 3 mg by mouth. 09/04/2024 Active ergocalciferol (VITAMIN D2) 50,000 unit capsule Take 50,000 Units by mouth. Active hydrocortisone (HYTONE) 2.5 % Cream 06/30/2025 Active meclizine (ANTIVERT) 25 mg tablet Take 25 mg by mouth. 05/13/2025 Active mercaptopurine (PURINETHOL) 50 mg tablet Take 50 mg by mouth daily. 09/04/2024 Active mupirocin (BACTROBAN) 2 % Ointment 04/24/2024 Active ondansetron (ZOFRAN ODT) 4 mg Tablet, Rapid Dissolve 10/09/2022 Active oxyCODONE-acetami nophen (PERCOCET) 10-325 mg Tablet 08/28/2024 Ac tive PARoxetine HCl (PAXIL) 40 mg tablet 06/20/2023 Active rOPINIRole (REQUIP) 1 mg tablet Take 1 mg by mouth. 11/25/2023 Active tiZANidine (ZANAFLEX) 2 mg Tablet 07/31/2024 Active turmeric root extract 500 mg Capsule Take 1,000 mg by mouth. Active ASCORBIC ACID, VITAMIN C, ORAL Take by mouth. Active linezolid (ZYVOX) 600 mg tablet Take 600 mg by mouth 2 times daily. Active saccharomyces boulardii (FLORASTOR) 250 mg Capsule Take by mouth. Active sucralfate (CARAFATE) 1 gram tablet Take 1 Gram by mouth 4 times daily before meals and at bedtime. Active SUMAtriptan (IMITREX) 50 mg tablet Take 50 mg by mouth every 2 hours as needed for Headaches. 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 [address]aken[address] Vir[address]es [address] [place] [id number] Roni Tracy MD Malignant neoplasm of appendix (CMS/HCC) (Primary Dx); Ovarian tumor 07/22/2025 External Device Data ST[facility] ABSTRACTION Provider, [...] on file Legal Sex Female 12:04 PM SKI MAKER Gender Identity Not on file Sexual Orientation Not on file Last Filed Vital Signs Vital Sign Reading Time Taken Comments Blood Pressure 113/68 09/22/2025 1:51 PM SKI MAKER Pulse 68 09/22/2025 1:51 PM SKI MAKER Temperature 36.3 C (97.3 F) 09/22/2025 1:51 PM SKI MAKER Respiratory Rate 16 09/22/2025 1:51 PM SKI MAKER Oxygen Saturation 98% 09/22/2025 1:51 PM SKI MAKER Inhaled Oxygen Concentration - - Weight 75.5 kg (166 lb 6.4 oz) 09/22/2025 1:51 P M SKI MAKER Height 165.1 cm (5' 5) 09/22/2025 1:51 PM SKI MAKER Body Mass Index 27.69 09/22/2025 1:51 PM SKI MAKER Plan of Treatment Upcoming Encounters Date Type Department Care Team (Late st Contact Info) Description 10/19/2025 4:30 PM SKI MAKER Telephone Check Up [facility] [address] [facility] [address] [place] [address] Roni Tracy MD [address] [facility] [address] [place] [address] Health Maintenance Due Date Last Done Comments DTAP/TDAP/TD VACCINES (1 - Tdap) 1990 HEPATITIS B VACCINES (1 of 3 - 19+ 3-dose series) 1990 HPV/Cotest (21-29) 1992 CERVICAL CANCER SCREENING 2001 HPV/Cotest (30-65) 2001 PAP SMEAR 2001 BREAST CANCER SCREENING 2011 ZOSTER VACCINE (1 of 2) 2021 Preventative Visit- Commercial 11/19/2024 INFLUENZA VACCINE (#1) 2025 COLORECTAL SCREENING Discontinued 02/11/2025, 02/11/2025, 03/14/2023, Additional history exists Colorectal Cancer Screening Discontinued FIT-DNA Q 3 years Discontinued FIT/FOBT Q 1 year Discontinued Flex Sig/CT Colonography Q 5 years Discontinued Insurance [facility] BLUE PREFERRED Care Teams Helmet Coverer Relationship Specialty Start Date End Date Jesus Gonzalez DO [address] [place] [address] PCP - General Family Practice 01/17/22
[2025-09-22 17:59] LABS: Alanine Aminotransferase 15 U/L (6-35); Albumin Level 4.1 g/dL (3.5-5.1); Alkaline Phosphatase 73 U/L (38-126); Anion Gap 6 mmol/L (4-12); Aspartate Amino Transferase 38 U/L (14-36); Bilirubin,Total 0.4 mg/dL (0.2-1.3); Blood Urea Nitrogen 10 mg/dL (7-17); Calcium 8.8 mg/dL (8.4-10.2); Carbon Dioxide 24 mmol/L (22-30); Chloride 106 mmol/L (98-107); Estimated Glomerular Filt Rate > 60; Glucose 88 mg/dL (65-110); Potassium 4.0 mmol/L (3.4-5.0); Sodium 136 mmol/L (137-145); Total Protein 7.0 g/dL (6.3-8.2)
== END 2025-09-22 14:24 | disposition home or self-care (01) ==
LOC: ANHLAB 14:24
PROVIDERS: Visit Provider Internal Medicine Hematology & Oncology
DX: C18.1 Malignant neoplasm of appendix (principal); D49.59 Neoplasm of unspecified behavior of other genitourinary organ
CPT/HCPCS: 36415; 80053; 85025; 86304; 86316

== ENCOUNTER 2025-10-10 10:26 | Outpatient (CLI) | payer BC, SELFPAY ==
--- NOTE | ~2025-10-10 | MR_ITS ---
EXAMINATION: MR pelvis wo/w con DATE: 10/10/2025 11:24 INDICATION: Ovarian tumor TECHNIQUE: Magnetic resonance imaging (MRI) of the pelvis was performed without intravenous contrast. Fullfield sequences of the pelvis included axial and coronal T2-weighted SS FSE, coronal 2D FIESTA, axial T1-weighted FSPGR, axial dual-echo T1-weighted FSPGR and axial T1 weighted LAVA. Small field of view sequences included axial, sagittal and coronal T2-weighted FSE centered on the uterus and adnexa. Postcontrast sequences included a time course axial T1- weighted LAVA with full-field of view of the pelvis. COMPARISON: CT dated 07/24/2025 FINDINGS: Anteverted uterus with endometrial contents measuring 8 mm in thickness. There is a small focus of absent signal right side of the uterine fundus which corresponds to a small calcification on prior CT dense atherosclerotic phlebolith or degenerated uterine fibroid. There is a 5.4 x 3.5 x 3.2 cm right a dnexal mass which abuts the lateral margin of the uterus. The mass demonstrates heterogeneous T2 signal which is relatively hyperintense compared to the myometrium. The mass appears to enhance earlier than the myometrium on the initial postcontrast imaging and a separate right ovary is not identified f avoring an ovarian origin of the mass. The left ovary is normal. Bladder is normal. Visualized portions of bowels are unremarkable with no obstruction. There is a small amount of ascites in the pelvis and right lower quadrant of the abdomen. Postcontrast images demonstrate a reticular nodular pattern of enhancement along the omentum in the anterior left and right lower quadrants. Constellation of findings is concerning for primary right ovarian cancer with peritoneal spread of disease with multiple omental implants. No pathologically enlarged pelvic or inguinal lymphadenopathy. Severe lumbosacral spondylosis with fibrovascular degenerative endplate changes. Marrow signal otherwise unremarkable with no evident osseous metastatic disease. IMPRESSION: 1. 5.4 x 3.5 x 3.2 cm enhancing right adnexal mass suspicious for primary ovarian cancer with suspicion for intraperitoneal metastatic disease with omental implants. Recommend gynecologic oncology consultation. Reviewed, dictated and finalized at location A. OR RUNNER IMPRESSION: 1. 5.4 x 3.5 x 3.2 cm enhancing right adnexal mass suspicious for primary ovari an cancer with suspicion for intraperitoneal metastatic disease with omental im plants. Recommend gynecologic oncology consultation.
== END 2025-10-10 10:27 | disposition home or self-care (01) ==
LOC: CHSIMG 10:28
PROVIDERS: PCP Nurse Practitioner Family; Visit Provider Internal Medicine Hematology & Oncology
DX: D49.59 Neoplasm of unspecified behavior of other genitourinary organ (principal)
CPT/HCPCS: 72197; A9577

== ENCOUNTER 2025-10-22 16:33 | Emergency (ER) | payer BC, SELFPAY ==
--- NOTE | 2025-10-22 16:35 | ECG_ITS ---
Test Date: 2025-10-22 16:49:28 Measurements Intervals [place] Rate: 75 P: 78 MN: 144 QRS: 74 QRSD: 88 T: 64 QT: 396 QTc: 443 Interpretive Statements SINUS RHYTHM BASELINE ARTIFACT- I, II, III, AVR, AVL, AVF, V1-V6 NORMAL ECG Compared to ECG 07/24/2025 17:12:01 HEART RATE HAS INCREASED Electronically Signed On 10-22-2025 19:44:00 WEATHER ALGORITHM SCIENTIST by Grey Bartlett D.O.
[2025-10-22 16:39] VITALS: BP 136/116; PULSE 108; RESP 18; TEMP 37.2; O2SAT 99
[2025-10-22] MEDS: SODIUM CHLORIDE 0.9% IV 1,000 ML 999 ML IV CONT (16:42)
[2025-10-22] MEDS: MORPHINE SULFATE (*CRX) 4 MG/ML INJ IV PUSH (16:42)
--- NOTE | 2025-10-22 16:43 | ED.ABDPAIN ---
HPI - Abdominal Pain General Chief Complaint: Abdominal Pain Stated Complaint: abdominal pain Time Seen by Provider: 10/22/25 16:33 Source: patient and family Mode of arrival: ambulatory Limitations: clinical condition History of Present Illness HPI narrative: This is a 54-year-old female with history of ovarian cancer with Mets recently diagnosed with currently no treatments that presents with abdominal pain that she rates 10/10 with some diffuse abdominal pain with some nausea and vomiting no history of kidney stones no flank pain no dysuria or hematuria no diarrhea or constipation. There is no fever chills patient a history of Crohn's disease. MD elicited complaint: abdominal pain Onset (ago): hour(s) Pain Consistency: constant Location: diffuse Severity: severe Pain scale (0-10): 10 Quality: aching and fullness Migration to: periumbilical Exacerbating factors: vomiting Relieving factors: nothing Related Data Home Medications ?Medication ?Instructions ?Recorded ?Confirmed ?Last Taken ?Type sucralfate 1 gram tablet 1 g PO TID PRN Acid Reflux 08/02/21 09/30/25 04/14/24 History ascorbic acid (vitamin C) 1,000 mg 1 g PO DAILY 05/12/22 09/30/25 09/12/24 History tablet (Vitamin C) turmeric 100 mg-benjy 150 1 cap PO DAILY 05/12/22 09/30/25 09/12/24 History mg-olive 50 mg-oreg 150 mg-capryl capsule hydrocortisone acetate 25 mg 25 mg RECTAL DAILY PRN CROHN'S EXAC 07/19/23 09/30/25 04/14/24 History rectal suppository mercaptopurine 50 mg tablet 50 mg PO DAILY 07/19/23 09/30/25 09/12/24 History sumatriptan succinate 50 mg tablet 50 mg PO ONCE PRN MIGRAINES 07/19/23 09/30/25 04/14/24 History (Imitrex) tizanidine 2 mg capsule 2 mg PO TID 07/25/23 09/30/25 09/12/24 History aspirin 81 mg tablet,delayed 325 mg PO DAILY 09/30/25 09/30/25 Unknown History release Allergies Allergy/AdvReac Type Severity Reaction Status Date / Time metronidazole (From Flagyl) Allergy Severe GI bleeding Verified 10/22/25 16:35 Sulfa (Sulfonamide Allergy Severe GI Bleeding Verified 10/22/25 16:35 Antibiotics) sulfamethoxazole (From Allergy Unknown Verified 10/22/25 16:35 Bactrim) trimethoprim (From Bactrim) Allergy Unknown Verified 10/22/25 16:35 hydrocodone (From Vicodin) AdvReac Severe Vomiting Verified 10/22/25 16:35 adhesive tape AdvReac Blister Verified 10/22/25 16:35 Review of Systems Review of Systems: All systems reviewed & are unremarkable except as noted in HPI and below PMFSH Past Medical History Medical History Lumbar spondylosis Fatigue Iron deficiency anemia Diabetes Factor V Leiden Osteomyelitis History of TIA (transient ischemic attack) Restless leg syndrome Insomnia Portal hypertension Atrial fibrillation 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 01/16/25 patient declined SDOH Smoking packs per day: 2 Smoking cigarettes per day: 40.0 Years smoked: 20 Smoking pack-years: 40.00 Smoking status: Former smoker Tobacco type: cigarettes Smoking end date: 10/23/15 Additional smoking assessment comments: Quit 2015. 35pk yr history Alcohol intake: former Substance use: former Substance use type: marijuana Other substance usage details: Marijuana tea daily Last use: 09/11 Lack of Transportation: YES Lack of Food: Often True Current Housing: I Have Housing Concerned About Future Housing: YES Difficulty Paying Gas/Electric Bills: YES Difficulty Paying for Meds: YES Currently Unemployed: YES Education: Bachelor's Degree Difficulty w/ Childcare or Family Care: No Living arrangements: with family Occupation/Education: retired Spiritual care concerns: No Exam Const: General: no acute distress and ill appearing Nutritional Appearance: obese Orientation/consciousness: patient oriented x3 Limitations: physical limitations HENMT: Head: normal to inspection Neck: Neck: normal visual inspection Chest: Chest palpation & inspection: normal inspection of the chest Resp: Effort & Inspection: normal respiratory effort Auscultation: clear to auscultation bilaterally Cardio: Rate: regular rate Rhythm: regular rhythm GI: GI Palp: Yes Tenderness to palpation present (GI) Auscultation: Hypoactive bowel sounds present : General: Yes bladder normal to palpation Back/Spine/Pelvis: Back: no CVA tenderness Skin: General skin exam: normal color Rashes: no rashes Wounds: no wounds Neuro: General: patient oriented x3 and moves all extremities Extrem: General: normal to inspection and no pedal edema Course Course Emergency Course: Medical decision making narrative: The patient was evaluated by myself in the emergency department. History obtained from patient and family who are independent historians and filler physical exam performed witnessed by nurse. External medical records were reviewed at this time. EKG performed and reviewed Labs obtained. Current CT scanner is inoperable at this time and spoke with ER physician for an ER to ER transfer to [facility] and Dr. Tnieo accepted patient for transfer to the ER. Repeat assessment The patient did receive 4mg IV morphine, IV fluids and IV Zofran. Patient continues to have acute abdominal pain 10/10 with some some mild improvement after receiving morphine, complaining of continued pain and has become more belligerent cussing at staff even though the patient received 4 morphine [id number] ago and will administer 1mg IV Dilaudid and 25mg of Benadryl. Symptoms have mildly improved since arrival to the emergency department Vitals are stable Patient and family are agreeable after discussion and after shared medical decision for transfer to the emergency department at [facility]. All questions answered to the patient and family satisfaction. Vital Signs Vital signs: Vital Signs Temperature 37.2 C 10/22/25 16:39 Pulse Rate 108 H 10/22/25 16:39 Respiratory Rate 18 10/22/25 16:39 Blood Pressure 136/116 H 10/22/25 16:39 Pulse Oximetry 99 10/22/25 16:39 Oxygen Delivery Room Air 10/22/25 16:39 Temperature 37.2 C 10/22/25 16:39 Pulse Rate 108 H 10/22/25 16:39 Respiratory Rate 18 10/22/25 16:39 Blood Pressure 136/116 H 10/22/25 16:39 Pulse Oximetry 99 10/22/25 16:39 Oxygen Delivery Room Air 10/22/25 16:39 MDM Differential Diagnosis Differential Diagnosis: Abdominal pain Discharge Plan Discharge Clinical Impression: Abdominal pain Qualifiers: Abdominal location: generalized Qualified Code(s): R10.84 - Generalized abdominal pain Patient Disposition: Acute Care Hospital Condition: Stable Patient Language: Thai Prescriptions: No Action ondansetron 4 mg tablet,disintegrating 4 mg PO Q4H 0 Days Qty: 10 0RF Rx Instructions: 1st dose 1-2 hr before radiation meclizine 25 mg tablet 25 mg PO TID PRN (Reason: dizziness) Qty: 20 0RF tizanidine 2 mg capsule 2 mg PO TID mupirocin [Centany] 2 % ointment 1 applic topical QID Qty: 44 3RF Rx Instructions: Melt 2 in in each irrigation bottle irrigate 4 times per day ciprofloxacin-dexamethasone 0.3-0.1 % drops,suspension 5 drp LEFT EAR TID Qty: 7.5 1RF Rx Instructions: affected ear, tragal pump after applying, let sit for 5 minutes, use until follow up sucralfate 1 gram tablet 1 g PO TID PRN (Reason: Acid Reflux) ascorbic acid (vitamin C) [Vitamin C] 1,000 mg Tablet 1 g PO DAILY ibbfxarh-nbkg-rufmn-oreg-capry 100 mg-150 mg- 50 mg-150 mg Capsule 1 cap PO DAILY aspirin 81 mg tablet,delayed release (DR/EC) 325 mg PO DAILY mercaptopurine 50 mg tablet 50 mg PO DAILY sumatriptan succinate [Imitrex] 50 mg Tablet 50 mg PO ONCE PRN (Reason: MIGRAINES) hydrocortisone acetate 25 mg suppository 25 mg RECTAL DAILY PRN (Reason: CROHN'S EXAC) Saccharomyces boulardii [Florastor] 250 mg Capsule 250 mg PO TID Qty: 30 0RF linezolid 600 mg Tablet 600 mg PO Q12HR Qty: 18 0RF Humira Pen 40 mg/0.8 mL pen injector kit See Rx Instructions subcut .Every other Week Qty: 2 10RF Rx Instructions: inject one - 40 mg/0.8 mL pen every other week subcut . pantoprazole 40 mg tablet,delayed release (DR/EC) 40 mg PO QAM Qty: 90 0RF albuterol sulfate 2.5 mg /3 mL (0.083 %) solution for nebulization 2.5 mg inhalation Q4-6H PRN (Reason: shortness of breath or wheezing) Qty: 90 0RF albuterol sulfate 90 mcg/actuation HFA aerosol inhaler 2 inh inhalation Q4H PRN (Reason: shortness of breath or wheezing) Qty: 6.7 3RF Eliquis 5 mg tablet 5 mg PO BID Qty: 60 3RF ropinirole 1 mg tablet 1 mg PO DAILY Qty: 30 3RF cholecalciferol (vitamin D3) 1,250 mcg (50,000 unit) capsule See Rx Instructions .ROUTE .COMPLEX Qty: 12 5RF Dose Instruction: TAKE ONE CAPSULE BY MOUTH WEEKLY ON SUNDAY Rx Instructions: TAKE ONE CAPSULE BY MOUTH WEEKLY ON SUNDAY paroxetine HCl [Paxil] 40 mg tablet 40 mg PO HS Qty: 90 1RF alprazolam 0.5 mg tablet 0.5 mg PO BID Qty: 60 0RF oxycodone-acetaminophen 10-325 mg tablet 1 tablet PO Q8H PRN (Reason: pain) Qty: 90 0RF eszopiclone 3 mg tablet 3 mg PO QHS Qty: 90 0RF Follow-up/Referrals: Kassandra Hooks APRN [Primary Care Provider, Family Practice] Time of Disposition: 17:13
[2025-10-22] MEDS: ONDANSETRON INJ 4 MG/2 ML VIAL IV PUSH (16:48)
[2025-10-22 16:50] VITALS: BP 139/90; PULSE 99; RESP 24; O2SAT 97
[2025-10-22 17:02] VITALS: BP 143/116
[2025-10-22] MEDS: HYDROmorphone HCL INJ (*CRX) 2 MG/ML VIAL 1 MG IV PUSH (17:03)
[2025-10-22 17:14] LABS: Alanine Aminotransferase 15 U/L (6-35); Albumin Level 4.2 g/dL (3.5-5.1); Alkaline Phosphatase 80 U/L (38-126); Anion Gap 10 mmol/L (4-12); Aspartate Amino Transferase 25 U/L (14-36); Bilirubin,Total 0.3 mg/dL (0.2-1.3); Blood Urea Nitrogen 8 mg/dL (7-17); Calcium 8.9 mg/dL (8.4-10.2); Carbon Dioxide 19 mmol/L (22-30); Chloride 112 mmol/L (98-107); Estimated CRCL calculation 70 ml/min; Estimated Glomerular Filt Rate > 60; Glucose 100 mg/dL (65-110); Lipase 58 U/L (23-300); Osmolality Calculated 290 mOsm/kg (285-295); Potassium 3.9 mmol/L (3.4-5.0); Sodium 141 mmol/L (137-145); Total Protein 6.9 g/dL (6.3-8.2)
[2025-10-22 17:16] LABS: INR 1.0; Partial Thromboplastin Time 30.4 Sec (23.9-30.70); Prothrombin Time 11.2 Seconds (9.50-12.1)
[2025-10-22 17:17] VITALS: BP 145/100; PULSE 102; RESP 20; TEMP 36.6; O2SAT 99
--- NOTE | 2025-10-22 17:21 | PC.NURSE ---
Addendum entered by Napoleon Mejia 10/22/25 17:29: This note was composed after patient left with ems Original Note: Patient verbally abusive to staff calling staff names. Patient continued to curse staff for not getting her out of pain. Patient removed her gown and dressed back in her personal clothing. I requested patient please put her hospital gown back on as to not compromise her iv line. Patient complied for about 4 minuets and then disrobed again. Patient continued to yell and curse at staff during her visit. Patient changed back into hospital gown to leave with EMS.
[2025-10-22 17:26] LABS: Troponin I < 0.012 ng/mL (0.000-0.034)
== END 2025-10-22 17:17 | disposition short-term general hospital (02) ==
LOC: CHSED 17:12
PROVIDERS: Emergency Provider Emergency Medicine; PCP Nurse Practitioner Family
DX: R10.84 Generalized abdominal pain (principal); E11.9 Type 2 diabetes mellitus without complications; I10 Essential (primary) hypertension; I48.91 Unspecified atrial fibrillation; Z86.73 Personal history of transient ischemic attack (TIA), and cerebral infarction without residual deficits; Z87.891 Personal history of nicotine dependence
CPT/HCPCS: 36415; 80053; 83605; 83690; 84484; 85610; 85730; 93005; 96361; 96374; 96375; 99285; J1171; J1200; J2270; J2405; J7030

== ENCOUNTER 2025-10-22 17:58 | Emergency (ER) | payer BC, SELFPAY ==
--- NOTE | ~2025-10-22 | CT_ITS ---
CT abdomen pelvis w con INDICATION:acute R abdominal pain . COMPARISON: 07/24/2025 TECHNIQUE: Axial images of the abdomen and pelvis were obtained following infusion of 100 mL Isovue 300. Dose optimization technique was utilized. FINDINGS: The lung bases are clear. The liver parenchyma is unremarkable. No intrahepatic mass or ductal dilatation is evident. The gallbladder is unremarkable. The pancreas and spleen are normal in appearance. The adrenal glands are symmetric in size. The kidneys demonstrate symmetric uptake and excretion of contrast. No cystic mass is evident. There is no solid mass. There is no hydronephrosis. Evaluation of the stomach and bowel loops are limited due to lack of oral contrast. Post right hemicolectomy. There is increase in mesenteric deposits The bladder and rectum are normal. 4.8 x 3.2 cm mass in the right pelvis. No free intraperitoneal fluid or air is evident. There is no significant retroperitoneal lymphadenopathy. The aorta, visceral vessels and renal arteries demonstrate normal caliber and patency. The lower thoracic and lumbar vertebrae are in normal alignment. IMPRESSION: Increase in mesenteric positive are noted suggestive of metastases. There is a 4.8 x 3.2 cm mass in the right pelvis suggestive of right ovarian tumor.. All CT scans at this facility are performed using low dose modulation techniques as appropriate to perform exam including the following: automated exposure control; use of iterative reconstruction technique; adjustment of the mA and/or kV according to patient size (this includes techniques or standardized protocols for targeted exams where dose is matched to indication/reason for exam). Reviewed, dictated and finalized at location S. AR WORKER IMPRESSION: Increase in mesenteric positive are noted suggestive of metastases. There is a 4.8 x 3.2 cm mass in the right pelvis suggestive of right ovarian tu mor.. All CT scans at this facility are performed using low dose modulation techniqu es as appropriate to perform exam including the following: automated exposure c ontrol; use of iterative reconstruction technique; adjustment of the mA and/or kV according to patient size (this includes techniques or standardized protocol s for targeted exams where dose is matched to indication/reason for exam).
[2025-10-22 18:10] VITALS: BP 121/72; PULSE 66; RESP 18; TEMP 36.8; O2SAT 100
--- NOTE | 2025-10-22 18:33 | ED_ITS ---
HPI - Abdominal Pain General Chief Complaint: Abdominal Pain Stated Complaint: abdominal pain Time Seen by Provider: 10/22/25 18:11 History of Present Illness HPI narrative: Patient is a 54-year-old female who presents to the ER with acute right abdominal pain. 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 Patient reports her pain started around 4:00 p.m. this afternoon and it was ?stabbing. She reports she had a small bowel movement yesterday, but reports I do not eat much because it hurts to poop. Pt reports she drinks a lot of water. She endorses a history of ?38 surgeries,small bowel obstruction, diabetes, CVA, cirrhosis, and appendectomy. Patient denies any urinary symptoms, recent fevers, or acute back pain. She denies any substantial pain at time of examination but endorses increased pressure. Related Data Home Medications ?Medication ?Instructions ?Recorded ?Confirmed ?Last Taken ?Type sucralfate 1 gram tablet 1 g PO TID PRN Acid Reflux 0 08/02/21 09/30/25 04/14/24 History ascorbic acid (vitamin C) 1,000 mg 1 g PO DAILY 09/30/25 09/12/24 History tablet (Vitamin C) turmeric 100 mg-benjy 150 1 cap PO DAILY 05/12/2211/1209/12/24 History mg-olive 50 mg-oreg 150 mg-capryl capsule hydrocortisone acetate 25 mg 25 mg RECTAL DAILY PRN CR OHN'S EXAC 07/19/23 09/30/25 04/14/24 History rectal suppository mercaptopurine 50 mg tablet 50 mg PO DAILY 07/19/2309/12/24 History sumatriptan succinate 50 mg tablet 50 mg PO ONCE PRN M IGRAINES 07/19/23 09/30/25 04/14/24 History (Imitrex) tizanidine 2 mg capsule 2 mg PO TID 07/25/23 5 09/12/24 History aspirin 81 mg tablet,delayed 325 mg PO DAILY 09/30/25 09/30/25 Unknown History release Allergies Allergy/AdvReac Type Severity Reaction Status Date / Time metronidazole (From Flagyl) Allergy Severe GI bleeding Verified 10/22/25 16:35 Sulfa (Sulfonamide Allergy Severe GI Bleeding Verified 10/22/25 16:35 Antibiotics) sulfamethoxazole (From Allergy Unknown Verified 10/22/25 16:35 Bactrim) trimethoprim (From Bactrim) Allergy Unknown Verified 10/22/25 16:35 hydrocodone (From Vicodin) AdvReac Severe Vomiting Verified 10/22/25 16:35 adhesive tape AdvReac Blister Verified 10/22/25 16:35 Review of Systems Review of Systems: All systems reviewed & are unremarkable except as noted in HPI and below PMFSH Past Medical History Medical History Lumbar spondylosis Fatigue Iron deficiency anemia Diabetes Factor V Leiden Osteomyelitis History of TIA (transient ischemic attack) Restless leg syndrome Insomnia Portal hypertension Atrial fibrillation 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 01/16/25 patient declined SDOH Smoking packs per day: 2 Smoking cigarettes per day: 40.0 Years smoked: 20 Smoking pack-years: 40.00 Smoking status: Former smoker Tobacco type: cigarettes Smoking end date: 10/23/15 Additional smoking assessment comments: Quit 2015. 35pk yr history Alcohol intake: former Substance use: former Substance use type: marijuana Other substance usage details: Marijuana tea daily Last use: 09/11 Lack of Transportation: YES Lack of Food: Often True Current Housing: I Have Housing Concerned About Future Housing: YES Difficulty Paying Gas/Electric Bills: YES Difficulty Paying for Meds: YES Currently Unemployed: YES Education: Bachelor's Degree Difficulty w/ Childcare or Family Care: No Living arrangements: with family Occupation/Education: retired Spiritual care concerns: No Exam Narrative: GENERAL: Well appearing, well-nourished, non-toxic, in no acute distress. HEAD: Normocephalic, atraumatic. NECK: Supple. No adenopathy, no masses. RESPIRATORY: Airway patent, respirations nonlabored. Clear to auscultation bilaterally, no rales, rhonchi, wheezing. CARDIOVASCULAR: Regular rate and rhythm without murmurs, rubs, or gallops. Peripheral pulses 2+ and equal bilaterally. ABDOMINAL: Soft, nontender but endorses pressure with palpation, nondistended, no hepatosplenomegaly. Normoactive BS. MUSCULOSKELETAL: Moves all extremities. Strength/ROM intact without gross deformities. SKIN: Warm, dry, normal color. No rashes. NEURO: A&O X3. Speech clear. Cranial nerves II-XII intact. No ataxic movements. PSYCHIATRIC: Appropriate mood and affect. Normal interaction. Course Vital Signs Vital signs: Vital Signs Temperature 36.8 C 10/22/25 18:10 Pulse Rate 66 10/22/25 18:10 Respiratory Rate 18 10/22/25 18:10 Blood Pressure 121/72 10/22/25 18:10 Pulse Oximetry 100 10/22/25 18:10 Oxygen Delivery Room Air 10/22/25 18:10 Temperature 36.8 C 10/22/25 18:10 Pulse Rate 66 10/22/25 18:10 Respiratory Rate 18 10/22/25 18:10 Blood Pressure 121/72 10/22/25 18:10 Pulse Oximetry 100 10/22/25 18:10 Oxygen Delivery Room Air 10/22/25 18:10 [facility] MDM Narrative Medical decision making narrative: Patient is a 54-year-old female who presents to the ER with acute right abdominal pain. 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 Patient reports her pain started around 4:00 p.m. this afternoon and it was ?stabbing. She reports she had a small bowel movement yesterday, but reports I do not eat much because it hurts to poop. Pt reports she drinks a lot of water. She endorses a history of ?38 surgeries,small bowel obstruction, diabetes, CVA, cirrhosis, and appendectomy. Patient denies any urinary symptoms, recent fevers, or acute back pain. She denies any substantial pain at time of examination but endorses increased pressure. Labs Ordered: CBC, CMP, lipase (outside facility), UA, UDS (at this facility) Imaging Ordered: CT abdomen pelvis Medications Ordered: Morphine 6 mg IV Results: Pt's CT scan indicates The lung bases are clear. The liver parenchyma is unremarkable. No intrahepatic mass or ductal dilatation is evident. The gallbladder is unremarkable. The pancreas and spleen are normal in appearance. The adrenal glands are symmetric in size. The kidneys demonstrate symmetric uptake and excretion of contrast. No cystic mass is evident. There is no solid mass. There is no hydronephrosis. Evaluation of the stomach and bowel loops are limited due to lack of oral contrast. Post right hemicolectomy. There is increase in mesenteric deposits The bladder and rectum are normal. 4.8 x 3.2 cm mass in the right pelvis. No free intraperitoneal fluid or air is evident. There is no significant retroperitoneal lymphadenopathy. The aorta, visceral vessels and renal arteries demonstrate normal caliber and patency. The lower thoracic and lumbar vertebrae are in normal alignment. Diagnosis: Ovarian mass, metastatic cancer Consults: [facility] gynecology/oncology (already established) Patient Education/Shared MDM: Results of lab work and imaging shared with patient. She reports her pain is starting to increase so she will be given morphine prior to discharge. Patient strongly advised to call her OBGYN oncologist tomorrow to see if they can see her sooner than October 27 as previously planned. She will not be discharged home with any new prescriptions. Strict return precautions provided. Patient verbalized understanding and is in agreement with plan. Vital signs stable at time of discharge. All questions answered. Differential Diagnosis Differential Diagnosis: Constipation, bowel obstruction, pain due to malignancy Lab Data MDM Lab Attestation statement: I personally reviewed the patient's lab results. Labs: Lab Results 10/22/25 Range/Units 19:17 Urine Color Dark yellow (Yellow) Urine Appearance Cloudy H (Clear) Urine pH 5.5 (5.0-9.0) Ur Specific [place] 1.021 (1.001-1.035) Urine Protein Trace (Negative) mg/dL Urine Glucose (UA) Negative (Negative) mg/dL Urine Ketones Trace H (Negative) mg/dL Ur Blood (Man) Trace (Negative) Urine Nitrate Negative (Negative) Urine Bilirubin Negative (Negative) Urine Urobilinogen 1.0 (<2.0) mg/dL Leukocyte Esterase Rfl Negative (Negative) TRUE/UL Urine RBC 11-20 H (0-2) /hpf Urine WBC 0-5 (0-3) /hpf Ur Squamous Epith Cells Moderate (Few) /hpf Urine Bacteria 2+ H /hpf Urine Casts 3-5 Urine Opiates Screen Positive A (Negative) Urine Methadone Screen Negative (Negative) Ur Barbiturates Screen Negative (Negative) Ur Phencyclidine Scrn Negative (Negative) Ur Amphetamine Screen Negative (Negative) U Benzodiazepines Scrn Positive A (Negative) Urine Cocaine Screen Negative (Negative) U Cannabinoids Screen Positive A (Negative) Imaging Data Attestation: I personally reviewed and interpreted this imaging study as follow s: Radiologist's impression: ITS Impressions Abdomen/Pelvis CT 10/22/25 20:31 IMPRESSION: Increase in mesenteric positive are noted suggestive of metastases. There is a 4.8 x 3.2 cm mass in the right pelvis suggestive of right ovarian tumor.. All CT scans at this facility are performed using low dose modulation techniques as appropriate to perform exam including the following: automated exposure control; use of iterative reconstruction technique; adjustment of the mA and/or kV according to patient size (this includes techniques or standardized protocols for targeted exams where dose is matched to indication/reason for exam). Discharge Plan Discharge Clinical Impression: Ovarian cancer, Metastatic cancer, Abdominal pain, Mass of ovary Patient Disposition: Home Condition: Stable Instructions: Antibiotic Form, Abdominal Pain (ED) Additional Instructions: Please return to the ER with any worsening symptoms. Please call your OBGYN oncologist tomorrow to see if they can see you sooner than October 27, as discussed. Take all medications as prescribed, including regularly scheduled medications. You may also want to follow up with your oncologist, Dr. Tracy. Patient Language: Cook Islander Prescriptions: No Action ondansetron 4 mg tablet,disintegrating 4 mg PO Q4H 0 Days Qty: 10 0RF Rx Instructions: 1st dose 1-2 hr before radiation meclizine 25 mg tablet 25 mg PO TID PRN (Reason: dizziness) Qty: 20 0RF tizanidine 2 mg capsule 2 mg PO TID mupirocin [Centany] 2 % ointment 1 applic topical QID Qty: 44 3RF Rx Instructions: Melt 2 in in each irrigation bottle irrigate 4 times per day ciprofloxacin-dexamethasone 0.3-0.1 % drops,suspension 5 drp LEFT EAR TID Qty: 7.5 1RF Rx Instructions: affected ear, tragal pump after applying, let sit for 5 minutes, use until follow up sucralfate 1 gram tablet 1 g PO TID PRN (Reason: Acid Reflux) ascorbic acid (vitamin C) [Vitamin C] 1,000 mg Tablet 1 g PO DAILY ekaqhqaw-tdjl-psnjh-oreg-capry 100 mg-150 mg- 50 mg-150 mg Capsule 1 cap PO DAILY aspirin 81 mg tablet,delayed release (DR/EC) 325 mg PO DAILY mercaptopurine 50 mg tablet 50 mg PO DAILY sumatriptan succinate [Imitrex] 50 mg Tablet 50 mg PO ONCE PRN (Reason: MIGRAINES) hydrocortisone acetate 25 mg suppository 25 mg RECTAL DAILY PRN (Reason: CROHN'S EXAC) Saccharomyces boulardii [Florastor] 250 mg Capsule 250 mg PO TID Qty: 30 0RF linezolid 600 mg Tablet 600 mg PO Q12HR Qty: 18 0RF Humira Pen 40 mg/0.8 mL pen injector kit See Rx Instructions subcut .Every other Week Qty: 2 10RF Rx Instructions: inject one - 40 mg/0.8 mL pen every other week subcut . pantoprazole 40 mg tablet,delayed release (DR/EC) 40 mg PO QAM Qty: 90 0RF albuterol sulfate 2.5 mg /3 mL (0.083 %) solution for nebulization 2.5 mg inhalation Q4-6H PRN (Reason: shortness of breath or wheezing) Qty: 90 0RF albuterol sulfate 90 mcg/actuation HFA aerosol inhaler 2 inh inhalation Q4H PRN (Reason: shortness of breath or wheezing) Qty: 6.7 3RF Eliquis 5 mg tablet 5 mg PO BID Qty: 60 3RF ropinirole 1 mg tablet 1 mg PO DAILY Qty: 30 3RF cholecalciferol (vitamin D3) 1,250 mcg (50,000 unit) capsule See Rx Instructions .ROUTE .COMPLEX Qty: 12 5RF Dose Instruction: TAKE ONE CAPSULE BY MOUTH WEEKLY ON SUNDAY Rx Instructions: TAKE ONE CAPSULE BY MOUTH WEEKLY ON SUNDAY paroxetine HCl [Paxil] 40 mg tablet 40 mg PO HS Qty: 90 1RF alprazolam 0.5 mg tablet 0.5 mg PO BID Qty: 60 0RF oxycodone-acetaminophen 10-325 mg tablet 1 tablet PO Q8H PRN (Reason: pain) Qty: 90 0RF eszopiclone 3 mg tablet 3 mg PO QHS Qty: 90 0RF Follow-up/Referrals: Roni Tracy MD [Physician, Hematology] Kassandra Hooks APRN [Primary Care Provider, Family Practice] Time of Disposition: 21:05
[2025-10-22 19:28] LABS: Add Urine Microscopic? YES; Appearance Urine Cloudy (Clear); Glucose Urine UA Negative (Negative); Leukocyte Esterase Ur Negative LEU/UL (Negative); Nitrate Urine Negative (Negative); Specific Grav Ur 1.021 (1.001-1.035)
[2025-10-22 19:43] LABS: Cannabinoid Screen Urine Positive (Negative)
[2025-10-22] MEDS: MORPHINE SULFATE (*CRX) 4 MG/ML INJ 6 MG IV PUSH (21:20)
[2025-10-22 21:22] VITALS: BP 104/58; PULSE 71; RESP 18; O2SAT 100
--- NOTE | 2025-10-26 13:04 | PC.NURSE ---
PRELIMINARY BLOOD CULTURE REPORT: NO GROWTH IN 24 HOURS. WAITING ON FINAL CULTURE REPORT.
--- NOTE | 2025-10-27 13:48 | PC.NURSE ---
PRELIMINARY BLOOD CULTURE REPORT: NO GROWTH IN 48 HOURS. WAITING ON FINAL CULTURE REPORT.
== END 2025-10-22 21:45 | disposition home or self-care (01) ==
PROVIDERS: Emergency Provider Registered Nurse; PCP Nurse Practitioner Family
DX: C56.9 Malignant neoplasm of unspecified ovary (principal); C78.6 Secondary malignant neoplasm of retroperitoneum and peritoneum; I48.91 Unspecified atrial fibrillation; E11.9 Type 2 diabetes mellitus without complications; K74.60 Unspecified cirrhosis of liver; D50.9 Iron deficiency anemia, unspecified; D68.51 Activated protein C resistance; K50.90 Crohn's disease, unspecified, without complications; G25.81 Restless legs syndrome; Z86.73 Personal history of transient ischemic attack (TIA), and cerebral infarction without residual deficits; Z87.891 Personal history of nicotine dependence; Z89.421 Acquired absence of other right toe(s); Z90.49 Acquired absence of other specified parts of digestive tract; Z89.029 Acquired absence of unspecified finger(s); Z79.82 Long term (current) use of aspirin; Z79.01 Long term (current) use of anticoagulants; Z79.4 Long term (current) use of insulin; Z79.899 Other long term (current) drug therapy
CPT/HCPCS: 74177; 80307; 81001; 96374; 99284; J2270; Q9967

== ENCOUNTER 2025-11-18 01:00 | Day surgery (SDC) | payer BC, SELFPAY ==
--- OUTSIDE RECORDS SUMMARY | 2016-01-18 09:45 | XMS_ITS | Continuity of Care Document ---
Author Organization [facility] Address [address] [place] [address] Phone Care Team Providers Care Supervisor Force Adjustment Name Role Phone Lorrie HUYNH, Meeta Unavailable Unavailable Advance Directives Directive Yes / No Effective Date File Name No Information Encounters Encounter Description Practice Location Reason(s) For Visit Diagnoses Date Provider Encounter Disposition [facility], [address], [place], [place], [id number], tel:[phone] [facility] No Information Jan-0 1-201 6 Lorrie Tim. [address] [place], [place], [address] , [place]. tel:[phone] Family History Family Member Type Diagnosis Age At Onset Mother Problem (finding) malignant neoplasm of l kaitlyner Father Problem (finding) hypertension Payers Payer name Insurance type Identifiers Authorization(s) [facility] Ppo/EPO BL Member ID: Name: Coverage Status Eligibility Check on: [id number] ship to Subscriber: significant otherPayer Address: [facility] [id number] [place] [address], [id number] Phone: [phone] Social History Type Description Quantity Date Captured Comments Sex Female Smoking Status No Information Current Gender Female (finding) Chief Complaint And Reason For Visit No Information History Of Present Illness Encounter Date Complaint History Of Prese nt Illness No Information Functional Status Date Description Comments No Information Instructions Date Instruction Additional Infor mation No Information Assessments Type Assessment Date No Information
--- OUTSIDE RECORDS SUMMARY | 2016-10-11 06:00 | XMS_ITS | Continuity of Care Document ---
Author Organization [facility] Address [address] [place] [address] Phone Care Team Providers Care Control Inspector Name Role Phone Zahira Isbell MD Unavailable Unavailable Procedures Procedure Date Electrocardiogram report Advance Directives Directive Yes / No Effective Date File Name No Information Encounters Encounter Description Practice Location Reason(s) For Visit Diagnoses Date Provider Providers Copied on Encounter [facility], [address], [place], [place], [address], [place] tel:[phone] [facility] No Information 6 Sukhi Rodriges. [address] [place] [address], [facility], [place]. tel:[phone] Family History Family Member Type Diagnosis Age At Onset No Information Payers Payer name Insurance type Covered constitution party ID Authoriza tion(s) [facility] PPO BL [id number] Social History Type Description Quantity Date Captured [...]
[2025-11-17 08:42] VITALS: BMI 27.4
--- NOTE | 2025-11-17 11:04 | SUR.PREOP ---
[facility] has started construction of its new state of the art ER which will open Spring 2026. With this, we anticipate parking may be a challenge for some our surgical patients and families. Parking spaces are limited but are available for all Surgical, obstetrics, and ER patients sharing this lot. If you arrive and find you are having a hard time finding a parking space, please note that we understand the challenges, please drive around the hospital and park near Hospital Entrance 1. When you enter this entrance, you can ask a volunteer to direct or take you back to the surgical waiting area to check in. We appreciate everyone?s understanding of these expected challenges while we build for your future. Report to the Outpatient Waiting Room, entrance under the green pavilion located off [address], at time 10:30a.m. on date 11/18/2025. Planned Procedure Time: 12:30a.m.? Time changes happen often and if your time is changed the preop area will call you the afternoon before. - You and your visitor will be asked to self-screen and do not enter if you have any COVID symptoms. Please call surgeon if you need to reschedule. - A mask is optional within the hospital at this time. Patients may have clear liquids (water, carbonated beverages, clear teas, apple juice) until 3 hours prior to surgery with a maximum of 20 ounces. - No food from midnight until time of surgery and no smoking, or chewing tobacco (or any form nicotine). No chewing gum, candy or mints. - Infants may have breast milk until 4 hours before surgery, formula 6 hours prior to surgery. - Children will be allowed to drink immediately following surgery.? If applicable, please bring a bottle or sippy cup to assist with drinking. Juice, water, soda, and popsicles are readily available.? For infants on formula, please bring formula the day of surgery.? Pacifiers are allowed. Take only the following medications with a SIP of water on the morning of surgery: albuterol, alprazolam, linezolid, paroxetine, oxycodone DO NOT STOP ANY OF YOUR OTHER PRESCRIPTION MEDICATIONS PRIOR TO SURGERY EXCEPT THE FOLLOWING Hold all vitamins and supplements for 3 days per anesthesiologist. Medications to discontinue per physician vitamins, supplements, Eliquis Date to take last dose 11/17/2025 Please no make-up, nail latvian, hairspray, perfume, deodorant, or body powder the day of surgery.? No jewelry (including any body piercings) or valuables the day of surgery, leave them at home.? Please take a shower or bath the night before, or the morning of, surgery with an antibacterial soap.? Wear comfortable, loose fitting clothing.? Children are encouraged to wear pajamas. - Jewelry must be removed prior to entering the operating room.? Rings and piercings that are not removed may be cut off. - The hospital will not accept responsibility for valuables.? - Please leave all valuables, including medications, at home the day of surgery. If you are going home after surgery, a licensed line driver must drive you home.? - NO public transportation without another adult if you receive anesthesia. - We recommend that an adult stay with you for 24 hours following discharge. - We also recommend that you do not drive, make important decision, drink alcoholic beverages, or take any drugs that were not prescribed by your health care provider for at least 24 hours after your discharge time. For Pediatric surgeries, we recommend two adults accompany the child home. Follow any additional instructions given to you from your surgeon. Telephone instructions given to Danette Thomas and asked if any additional questions and then verbalized understanding. Patient advised to call surgeon office or pre surgery nurse liaison [phone] if any additional questions.
--- NOTE | ~2025-11-18 | XR_ITS ---
XR chest port-a-cath/central 11/18/2025 14:55 Indication: Post Mediport placement Procedure: AP portable chest Comparison: 07/24/2025 Findings: Heart size normal. Mild interstitial edema. Right IJ portacatheter tip in the SVC. No pneumothorax. Heart size normal. No acute osseous abnormality. There are changes of right clavicular osteotomy. Impression: 1: Mild interstitial edema. Reviewed, dictated and finalized at location O. CIATE PROFESSOR OF MEDIA ARTS Impression: 1: Mild interstitial edema.
--- NOTE | ~2025-11-18 | XR_ITS ---
XR fl guide central line place Indication:Mediport placement TECHNIQUE: Fluoroscopy used during Mediport placement performed by [Abdulaziz Jackson MD] on 11/18/2025. 1 minute 45 seconds with 3 fluoroscopic images captured. FINDINGS: Correlate with procedure note. IMPRESSION: Fluoroscopy used during Mediport placement. Reviewed, dictated and finalized at location O. E ATTENDANT
--- OUTSIDE RECORDS SUMMARY | 2025-11-18 01:04 | XMS_ITS | Encounter Summary ---
Author Organization [facility] Address [address] [place] [address] Phone Care Team Providers Care Manager Lighting Name Role Phone Lucho Peralta MD Unavailable Kassandra Hooks GREY GOODS EXAMINER Primary Care Provider + Encounter Details Date Type Department Care Team (Late st Contact Info) Description 09/23/2025 Results Follow-Up [facility] Medicine Cardiology [address] [facility] [address] [place] [address] Gabriella Cpoe RMA Extended/Penitentiary Holter Patch (>48 hours up to 7 days), Advanced Lipid Panel, Cardio IQ, CARDIO IQ(R) VITAMIN D, 25-HYDROXY, LC/MS/MS, Additional followed-up results: 4 Social History Tobacco Use Types Packs/Day Years [...] file 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
--- OUTSIDE RECORDS SUMMARY | 2025-11-18 01:04 | XMS_ITS | Encounter Summary ---
Author Organization [facility] Address [address] [place] [address] Phone Care Team Providers Care Senior Program Manager Name Role Phone Jesus Gonzalez DO Primary Care Provider Odilon Vyas MD Primary Care Provider + [phone] Lucho Peralta MD Unavailable Xiomara Carlos MD Primary Care Provider [phone] Odilon Vyas MD Primary Care Provider + [phone] Unknown, Notinfile Primary Care Provider Unavail able Kassandra Hooks NP Primary Care Provider + Encounter Details Date Type Department Care Team (Latest Contact Info) Description 05/10/2015 Orders Only [facility] CARDIOLOGY Chasity Borjas, CARMINA [address] [facility] [address] [place], [place] [id number] Social History Tobacco Use Types Packs/Day Years Used Date Smoking Tobacco: Never Assessed Comments Unknown Sex and Gender Information Value Date Recorded Sex Assigned at Not on file 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 Gender Identity Female 06/12/2023 3:27 PM CDT [...] on filedocumented in this encounter Care Teams Senior Program Manager Relationship Specialty Start Date End Date Jesus Gonzalez DO [address] [place] [address] PCP - General Family Medicine 10/26/21 02/07/23 Odilon Vyas MD [address] [place] [address] PCP - General Family Medicine 02/08/23 02/07/24 Xiomara Carlos MD [address] [place] [address] PCP - General Psychiatry 02/08/24 03/23/24 Odilon Vyas MD [address] [place] [address] PCP - General Family Medicine 03/24/24 08/12/24 Unknown, Notinfile PCP - General 08/13/24 08/26/24 Kassandra Hooks NP PCP - General Nurse Practitioner 08/27/24 Lucho Peralta MD [address] [place] [address] Referring Physician Otolaryngology 12/07/23 documented as of this encounter
--- OUTSIDE RECORDS SUMMARY | 2025-11-18 01:04 | XMS_ITS | Encounter Summary ---
Author Organization [facility] Address [address] [place] [address] Phone Care Team Providers Care Pad Tufter Name Role Phone Jesus Gonzalez DO Primary Care Provider Odilon Vyas MD Primary Care Provider + [phone] Lucho Peralta MD Unavailable Xiomara Carlos MD Primary Care Provider [phone] Odilon Vyas MD Primary Care Provider + [phone] Unknown, Notinfile Primary Care Provider Unavail able Kassandra Hooks NP Primary Care Provider + Encounter Details Date Type Department Care Team (Latest Contact Info) Description 08/17/2015 Orders Only [facility] CARDIOLOGY Chasity Borjas, CARMINA [address] 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 Gender Identity Female 06/12/2023 3:27 PM CDT [...] on filedocumented in this encounter Care Teams Pad Tufter Relationship Specialty Start Date End Date Jesus Gonzalez DO [address] [place] [address] PCP - General Family Medicine 10/26/21 02/07/23 Odilon Vyas MD [address] [place] [address] PCP - General Family Medicine 02/08/23 02/07/24 Xiomara Carlos MD [address] [place] [address] PCP - General Psychiatry 02/08/24 03/23/24 Odilon Vyas MD [address] [place] [address] PCP - General Family Medicine 03/24/24 08/12/24 Unknown, Notinfile PCP - General 08/13/24 08/26/24 Kassandra Hooks, EDWIGE PCP - General Nurse Practitioner 08/27/24 Lucho Peralta MD [facility] [place] [address] Referring Physician Otolaryngology 12/07/23 documented as of this encounter
--- OUTSIDE RECORDS SUMMARY | 2025-11-18 01:04 | XMS_ITS ---
Author Organization [facility] Address [address] [place] [address] Care Team Providers Care Hide Sorter Name Role Phone Lucho Peralta MD Unavailable Kassandra Hooks NP Primary Care Provider + Active Problems Problem Noted Date Diagnosed Date Anger reaction 10/27/2025 Metastatic cancer 10/27/2025 Ovarian cancer 10/27/2025 Overview (10/27/2025): 08/2025 Demarcus Hide Examiner/Onc referral Severe recurrent major depre ssion without psychotic features 10/27/2025 Vitamin D deficiency 07/31/2025 Uveitis 07/31/2025 TIA (transient ischemic attack) 07/31/2025 Seizure 07/31/2025 Seasonal allergies 07/31/2025 Portal vein thrombosis 07/31/2025 Portal hypertension 07/31/2025 PAF (paroxysmal atrial fibrillation) 07/31/2025 Atrial fibrillation 07/31/2025 Otorrhea, left ear 07/31/2025 Osteomyelitis 07/31/2025 Obesity 07/31/2025 Nasal crusting 07/31/2025 Migraine 07/31/2025 Memory deficit 07/31/2025 Mass of ovary 07/31/2025 Lumbar spondylosis 07/31/2025 Laceration of left hand 07/31/2025 Hypocalcemia 07/31/2025 Insomnia 07/31/2025 Hearing loss, bilateral 07/31/2025 Headache 07/31/2025 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 Xuan locke. Diagnosed with Dr. Solomon Stanley 08/2024. Dr. Xuan locke. Diagnosed with Dr. Solomon [...] 11/13/2023 Assessment & Plan (11/13/2023 4:00 PM RECORD FILING CLERK): PO2W cataract extraction (CE)/posterior chamber intraocular lens [...] (PSC) cataracts both eyes (OU) secondary to nursing service director prednisone usage +1D otc readers for distance [...] referral. - We will have MRE from [facility] read by our radiologists. Assessment & Plan (02/06/2023 12:22 PM CDT): MRE on 12/08/22 showed cystic lesions of the pancreas measuring up to 6mm. The patient only had an image of the impression of this report, and we do not have access to the report or study itself. - Patient has given authorization to release MRE report from [facility]. We will also obtain the images [...] her abdominal pain on recent MRE at [facility]. We will obtain this study and [...] valve Surgeries: ileocolic resection in 2019 at [facility] - 6 inches of small bowel [...] traverse the IC valve, prompting ileocolic resection ([facility]) - 6 [address]cted. Path incidentally [...] traverse the IC valve, prompting ileocolic resection ([facility]) - 6 [address] resected. Path incidentally [...] traverse the IC valve, prompting ileocolic resection ([facility]) - 6 inches resected. Path incidentally [...] dose. Assessment & Plan (10/23/2022 11:27 AM RECORD FILING CLERK): Diagnosis in 2014. Humira since Mar, 2016. [...] by patient yet. -recent blood work from [facility] reviewed. Noted to have urinalysis, [...] continue. Assessment & Plan (09/25/2022 10:44 AM RECORD FILING CLERK): Diagnosis in 2014. Humira since Mar, 2016. [...] -Talked to her GI group at [facility] Dr Torres on-call, suggested if pt is stable to d/c to be admitted to [facility] work her up further. Talking to the [...]
--- OUTSIDE RECORDS SUMMARY | 2025-11-18 01:04 | XMS_ITS | Clinical Summary ---
Author Organization [facility] Address [address] [place] [address] Care Team Providers Care [place] Auditor Name Role Phone Joanne Dawkins MD Primary Care Provider [phone] Allergies Active Allergy Reactions Criticality Noted Date Comments Amoxicillin-Pot Clavulanate Other (see comment) Low 02/06/2023 Makes Crohn's flare up Hydrocodone-Acetaminop hen Nausea and Vomiting,Other (see comment) High 05/29/2016 Jackson Latex Itching High 08/10/2016 Lidocaine Itching Low 08/10/2016 Silver Other (see comment) High 07/19/2023 Tegaderm dressing- used with PICC line (fpc is when she had reaction) Sulfa Antibiotics [...] Vaccines (1 of 2) 2021 PHQ-2 (Physician [place]) 11/19/2024 09/12/2024 Influenza Adult (#1) 2025 Hepatitis A Vaccines Aged Out No long er eligible based on patient's age to complete this topic RSV Immunizations Under 20 Months Aged Out No longer eligible based on patient's age to complete this topic Insurance [facility] Care Teams [place] Auditor Relationship Specialty [place] [id number] [address] PCP - General INTERNAL MEDICINE 09/09/24
--- OUTSIDE RECORDS SUMMARY | 2025-11-18 01:04 | XMS_ITS | Encounter Summary ---
Author Organization [facility] Address [address] [place] [address] Care Team Providers Care Senior Benefits Manager Name Role Phone Odilon Vyas MD Primary Care Provider [phone] Lucho Peralta MD Unavailable Xiomara Carlos MD Primary Care Provider [phone] Odilon Vyas MD Primary Care Provider [phone] Unknown, Notinfile Primary Care Provider Unavail able Kassandra Hooks NP Primary Care Provider + Encounter Details Date Type Department Care Team (Late st Contact Info) Description 01/18/2024 Telephone Pain Management Center at [facility] [address] [address], [address] [place] [address] Massimo Glynn MD [address] [address] Social History Tobacco Use Types Packs/Day Years [...] on file Legal Sex Female 10:13 AM SURGICAL ASSIST Gender Identity Female 06/12/2023 3:27 PM CDT [...] filedocumented in this encounter Care Teams Senior Benefits Manager Relationship Specialty Start Date End Date Odilon Vyas MD [address] [place] [address] PCP - General Family Medicine 02/08/23 02/07/24 Xiomara Carlos MD [address] [place] [address] PCP - General Psychiatry 02/08/24 03/23/24 Odilon Vyas MD [address] [place] [address] PCP - General Family Medicine 03/24/24 08/12/24 Unknown, Notinfile PCP - General 08/13/24 08/26/24 Kassandra Hooks NP PCP - General Nurse Practitioner 08/27/24 Lucho Peralta MD [address] [place] [address] Referring Physician Otolaryngology 12/07/23 documented as of this encounter
--- OUTSIDE RECORDS SUMMARY | 2025-11-18 01:04 | XMS_ITS | Patient Health Record ---
Author Organization [facility] No[facility] Address [address] [address] Care Team Providers Care Shoe Folder Name Role Phone Fabian Noe Unavailable [phone] Reason For Referral No Information Medications Medication [...] Start Date Coverage End Date [facility] [address] [address] [place] [address] [id number] Danette Thomas Self - patient is the insured 4 Medical (General) History Medical History History ICD Code Rash Tendinitis NOS Ulcer of skin NOS
--- OUTSIDE RECORDS SUMMARY | 2025-11-18 01:04 | XMS_ITS | Encounter Summary ---
Author Organization [facility] Healthcare Address [address] [place] [address] Care Team Providers Care Teacher Dramatics Name Role Phone Odilon Vyas MD Primary Care Provider [phone] Lucho Peralta MD Unavailable Xiomara Carlos MD Primary Care Provider [phone] Odilon Vyas MD Primary Care Provider [phone] Unknown, Notinfile Primary Care Provider Unavail able Kassandra Hooks NP Primary Care Provider + Encounter Details Date Type Department Care Team (Late st Contact Info) Description 01/21/2024 Telephone [facility] at [facility] [address] [address], [address] [place] [address] Massimo Glynn MD [address] [address] Social History Tobacco Use Types Packs/Day Years [...] on file Legal Sex Female 10:13 AM AC/DC REWINDER Gender Identity Female 06/12/2023 3:27 PM CDT [...] on filedocumented in this encounter Care Teams Teacher Dramatics Relationship Specialty Start Date End Date Odilon Vyas MD [address] [place] [address] PCP - General Family Medicine 02/08/23 02/07/24 Xiomara Carlos MD [address] [place] [address] PCP - General Psychiatry 02/08/24 03/23/24 Odilon Vyas MD [address] [place] [address] PCP - General Family Medicine 03/24/24 08/12/24 Unknown, Notinfile PCP - General 08/13/24 08/26/24 Kassandra Hooks NP PCP - General Nurse Practitioner 08/27/24 Lucho Peralta MD [address] [place] [address] Referring Physician Otolaryngology 12/07/23 documented as of this encounter
--- OUTSIDE RECORDS SUMMARY | 2025-11-18 01:04 | XMS_ITS | Encounter Summary ---
Author Organization [facility] Address [address] [place] [address] Phone Care Team Providers Care Architectural Engineering Teacher Name Role Phone Jesus Gonzlaez DO Primary Care Provider Odilon Vyas MD Primary Care Provider + [phone] Lucho Peralta MD Unavailable Xiomara Carlos MD Primary Care Provider [phone] Odilon Vyas MD Primary Care Provider + [phone] Unknown, Notinfile Primary Care Provider Unavail able Kassandra oHoks NP Primary Care Provider + Encounter Details Date Type Department Care Team (Latest Contact Info) Description 08/21/2015 Orders Only [facility] CARDIOLOGY Chasity Borjas, CARMINA [address] [facility] [address] [place], [place] [id number] Social History Tobacco Use Types Packs/Day Years Used Date Smoking Tobacco: Never Assessed Comments Unknown Sex and Gender Information Value Date Recorded Sex Assigned at Not on file Legal Sex Female 10:13 AM CONTINUITY TESTER Gender Identity Female 06/12/2023 3:27 PM [...] on filedocumented in this encounter Care Teams Architectural Engineering Teacher Relationship Specialty Start Date End Date Jesus Gonzalez DO [address] [place] [address] PCP - General Family Medicine 10/26/21 02/07/23 Odilon Vyas MD [address] [place] [address] PCP - General Family Medicine 02/08/23 02/07/24 Xiomara Carlos MD [address] [place] [address] PCP - General Psychiatry 02/08/24 03/23/24 Odilon Vyas MD [address] [place] [address] PCP - General Family Medicine 03/24/24 08/12/24 Unknown, Notinfile PCP - General 08/13/24 08/26/24 Kassandra Hooks NP PCP - General Nurse Practitioner 08/27/24 Lucho Peralta MD [address] [place] [address] Referring Physician Otolaryngology 12/07/23 documented as of this encounter
--- OUTSIDE RECORDS SUMMARY | 2025-11-18 01:04 | XMS_ITS | Clinical Summary ---
Author Organization [facility] Ermarkos diaz [facility] Address [address] [facility] [place] [address] Care Team Providers Care Director Of Psychology Name Role Phone Jesus Gonzalez DO Primary Care Provider [phone] Allergies Active Allergy Reactions Criticality Noted Date Comments Hydrocodone-Acetaminop hen Other (See Comments),Nausea and Vomiting High 05/29/2016 Triangle Latex Itching High 08/10/2016 Lidocaine-Transparent Dressing Itching [...] max dose 200mg in 24 hours Active bismuth tribrom-petrolatu nashwh (Xeroform Petrolatum Dressing) 1 X 8 Bandage Use as needed 50 Each 1 11/06/2025 Active Active Problems Problem Noted Date Diagnosed Date 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 [address] [place] [address] Roni Tracy MD Malignant neoplasm of appendix (CMS/HCC) (Primary Dx) 11/06/2025 10:15 AM INDUSTRIAL RE[employer]IGERATION MECHANIC Office Visit [facility] [address] [place] [phone] Roni Tracy MD Malignant neoplasm of appendix (CMS/HCC) (Primary Dx) 10/19/2025 4:30 PM INDUSTRIAL REFRIGERATION MECHANIC Telephone Check Up [facility] - [place] [address] [place] [phone] Roni Tracy MD 10/12/2025 Orders Only [facility] - [place] [address] [place] [phone] Roni Tracy MD 10/06/2025 External Device Data STL ABSTRACTION Provider, Abstract 09/30/2025 Orders Only [facility] - [place] [address] [place] [phone] Roni Tracy MD 09/29/2025 Orders Only [facility] - [place] [address] [place] [phone] Roni Tracy MD 09/25/2025 Orders Only [facility] - [place] [address] [place] [phone] Roni Tracy MD 09/22/2025 1:30 PM INDUSTRIAL REFRIGERATION MECHANIC Office Visit [facility] - [place] [address] [place] [address] Roni Tracy MD Malignant neoplasm of appendix (CMS/HCC) (Primary Dx); Ovarian tumor from Last 3 Months Family History Medical [...] 25 1 - 09/16/2015 Smokeless Tobacco: Never Tobacco Cessation:Counseling Given: Not Answered Alcohol Use Standard Drinks/Week Comments Never 0 (1 standard drink = 0.6 oz pur e alcohol) Comments Unknown Sex and Gender Information Value Date Recorded Sex Assigned at Not on file Legal Sex Female 12:04 PM INDUSTRIAL RE[employer]ERATION MECH[employer]IC Gender Identity Not on file Sexual Orientation Not on file Last Filed Vital Signs Vital Sign Reading Time Taken Comments Blood Pressure 111/61 11/06/2025 10:11 AM INDUSTRIAL REFRIGERATION MECHANIC Pulse 73 11/06/2025 10:11 AM INDUSTRIAL REFRIGERATION MECHANIC Temperature 36.2 C (97.2 F) 11/06/2025 10:11 AM INDUSTRIAL REFRIGERATION MECHANIC Respiratory Rate 16 11/06/2025 10:11 AM INDUSTRIAL REFRIGERATION MECHANIC Oxygen Saturation 97% 11/06/2025 10:11 AM INDUSTRIAL REFRIGERATION MECHANIC Inhaled Oxygen Concentration - - Weight 76.8 kg (169 lb 6.4 oz) 11/06/2025 10:11 AM INDUSTRIAL REFRIGERATION MECHANIC Height 165.1 cm (5' 5) 09/22/2025 1:51 PM INDUSTRIAL REFRIGERATION MECHANIC Body Mass Index 28.19 09/22/2025 1:51 PM INDUSTRIAL REFRIGERATION MECHANIC Plan of Treatment Upcoming Encounters Date Type Department Care Team (Late st Contact Info) Description 12/07/2025 8:30 AM INDUSTRIAL REFRIGERATION MECHANIC Office Visit [facility] - [place] [address] [facility] [address] [place] [address] Roni Tracy MD [address] [facility] [facility] [address] [place] [address] Health Maintenance Due Date Last Done Comments DIABETES ANNUAL FOOT EXAM 1989 DIABETES ANNUAL RETINAL EXAM 1989 DIABETES MICROALBUMIN ANNUAL SCREEN 1989 LDL CHOLESTEROL ANNUAL 1989 DTAP/TDAP/TD VACCINES (1 - Tdap) 1990 HEPATITIS B VACCINES (1 of 3 - 19+ 3-dose series) 1990 ZOSTER VACCINE (1 of 2) 1990 HPV/Cotest (21-29) 1992 CERVICAL CANCER SCREENING 2001 HPV/Cotest (30-65) 2001 PAP SMEAR 2001 BREAST CANCER SCREENING 2011 Preventative Visit- Commercial 11/19/2024 INFLUENZA VACCINE (#1) 2025 Lung Cancer Screening 10/13/2025 10/13/2024 DIABETES HBA1C Q 6 MONTHS 02/07/2026 08/10/2025 COLORECTAL SCREENING Discontinued 02/11/2025, 02/11/2025, 03/14/2023, Additional history exists Colorectal Cancer Screening Discontinued FIT-DNA Q 3 years Discontinued FIT/FOBT Q 1 year Discontinued Flex Sig/CT Colonography Q 5 years Discontinued Procedures Procedure Name Priority Date/Time Associated Diagnosis Comments MRI ABDOMEN PELVIS W CONTRAST Routine 10/10/2025 11:44 AM INDUSTRIAL REFRIGERATION MECHANIC SEROTONIN LEVEL Routine 10/08/2025 9:06 AM INDUSTRIAL REFRIGERATION MECHANIC Malignant neoplasm of appendix (CMS/HCC) CHROMOGRANIN A Routine 10/08/2025 9:06 AM INDUSTRIAL REFRIGERATION MECHANIC Malignant neoplasm of appendix (CMS/HCC) CANCER ANTIGEN 125 Routine 10/08/2025 9: 06 AM INDUSTRIAL REFRIGERATION MECHANIC Ovarian tumor CHROMOGRANIN A Routine 09/22/2025 2:07 PM INDUSTRIAL REFRIGERATION MECHANIC SEROTONIN LEVEL Routine 09/22/2025 11:27 AM INDUSTRIAL REFRIGERATION MECHANIC CHG CA 125 Routine 09/22/2025 11:16 AM INDUSTRIAL REFRIGERATION MECHANIC COMPREHENSIVE METABOLIC PANEL Routine 09/22/2025 8:01 AM INDUSTRIAL REFRIGERATION MECHANIC CBC WITH AUTODIFFERENTIAL Routine 09/22/2025 7:46 AM INDUSTRIAL REFRIGERATION MECHANIC from Last 3 Months Results * MRI ABDOMEN PELVIS W CONTRAST (10/10/2025 11:44 AM INDUSTRIAL REFRIGERATION MECHANIC) Anatomical Region Laterality Modality Abdomen Magnetic Resonan ce Roni Tracy MD MR ORDERABLES Final Result * CHROMOGRANIN A (10/08/2025 9:06 AM INDUSTRIAL REFRIGERATION MECHANIC) Only the most recent of2 resultswithin the time period is included. CHROMOGRANIN A 144 ADULTS: <311 ng/mL [facility], Comment: The sample type for this test was serum. Interpretation of patient results may be affected by a variety of conditions such as hypertension, gastritis, prostate cancer, hyperparathyroidism, and most commonly renal disease and use of proton pump inhibitors (PPIs). (Latanya Collins, et al. Chromogranin A measurement in metastatic well-differentiated gastroenteropancreatic neuroendocrine carcinoma: screening for false positives and a prospective follow-up study. Int J Biol Markers. 2011 Apr-Reid;26(2):94-101.) This test was performed using a Liquid Chromatography Mass Spectrometry method. Values obtained from different assay methods cannot be used interchangeably. Chromogranin A levels, regardless of value, should not be interpreted as absolute evidence of the presence or absence of disease. This test was developed and its analytical performance characteristics have been determined by [facility]. It has not been cleared or approved by the FDA. This assay has been validated pursuant to the CLIA regulations and is used for clinical purposes. FASTING:YES FASTING: YES Test Performed at: [facility], [id number] [place] [phone] Lisa Owens MD,PhD,JESS Blood 10/08/2025 9:06 AM INDUSTRIAL REFRIGERATION MECHANIC 10/09/2025 7:19 AM INDUSTRIAL REFRIGERATION MECHANIC Roni Tracy MD CHEMISTRY ORDERABLES Final Resu lt Performing Organization Address [facility] de Phone Number [facility] [phone] [facility], [address] [place] [address] * (ABNORMAL) CANCER ANTIGEN 125 (10/08/2025 9:06 AM INDUSTRIAL REFRIGERATION MECHANIC) CA 125 47(H) <35 U/mL [facility] Comment: This test was performed using the Siemens Chemiluminescent method. Values obtained from different assay methods cannot be used interchangeably. CA 125 levels, regardless of value, should not be interpreted as absolute evidence of the presence or absence of disease. FASTING:YES FASTING: YES Test Performed at: [facility] [address] [phone] Paris Daigle MD Blood 10/08/2025 9:06 AM INDUSTRIAL REFRIGERATION MECHANIC 10/09/2025 6:28 AM INDUSTRIAL REFRIGERATION MECHANIC Roni Tracy MD CHEMISTRY ORDERABLES Final Resu lt Performing Organization Address [facility]/State/ZIP Co de Phone Number [facility] [phone] [facility] [address] [place] [address] * SEROTONIN LEVEL (10/08/2025 9:06 AM INDUSTRIAL REFRIGERATION MECHANIC) Only the most recent of2 resultswithin the time period is included. SEROTONIN LEVEL TNP ng/mL [facility], Comment: TEST NOT PERFORMED Specimen received at incorrect temperature. FASTING:YES FASTING: YES Test Performed at: [facility], [id number] [place] [phone] Lisa Owens MD,PhD,JESS Blood 10/08/2025 9:06 AM INDUSTRIAL REFRIGERATION MECHANIC 10/09/2025 7:19 AM INDUSTRIAL REFRIGERATION MECHANIC Result [facility] Roni Tracy MD CHEMISTRY ORDERABLES Final Resu lt [facility] [phone] [facility], [address] [place] [address] * CHG CA 125 (09/22/2025 11:16 AM INDUSTRIAL REFRIGERATION MECHANIC) Roni Tracy MD CHG - LABORATORY Final Result * COMPREHENSIVE METABOLIC PANEL (09/22/2025 8:01 AM INDUSTRIAL REFRIGERATION MECHANIC) Blood Roni Tracy MD CHEMISTRY ORDERABLES Final Resu lt * CBC WITH AUTODIFFERENTIAL (09/22/2025 7:46 AM INDUSTRIAL REFRIGERATION MECHANIC) Blood Roni Tracy MD HEMATOLOGY ORDERABLES Final Res ult from Last 3 Months Insurance [employer] BLUE PREFERRED Care Teams Director Of Psychology Relationship Specialty Start Date End Date Jesus Gonzalez DO [address] [place] [address] PCP - General Family Practice 01/17/22
--- OUTSIDE RECORDS SUMMARY | 2025-11-18 01:04 | XMS_ITS | Clinical Summary ---
Author Organization [facility] Address [address] [place] [address] Care Team Providers Care Car Stower Name Role Phone Lucho Peralta MD Unavailable Kassandra Hooks NP Primary Care Provider + Allergies Active Allergy Reactions Criticality Noted Date Comments Adhesive Tape-Silicones Blisters High 10/22/2025 Amoxicillin-Pot Clavulanate Other (See comments) Low 02/06/2023 Makes Crohn's flare up Sulfamethoxazole-Trimet hoprim Other (See comments) Low 02/06/2023 Makes Crohn's flare up Hydrocodone Nausea & Vomiting,Vomiting High 08/27/2015 Hydrocodone-Acetaminoph en Nausea And Vomiting High 05/29/2016 [place] Latex Itching High 08/10/2016 Metronidazole Other (See comments) High 10/22/2025 Silver Blisters,Other (See comments) High 07/19/2023 Tegaderm dressing- used with PICC line ([place] [facility] is when she had reaction) Sulfa Other (See comments) High 06/16/2019 Drugs containing sulfur causes internal bleeding--rectal bleeding Drugs containing sulfur causes internal bleeding Sulfa (Sulfonamide Antibiotics) Other (See comments),Rash,Unkn own High 02/18/2019 Drugs containing sulfur causes internal bleeding--rectal bleeding Trimethoprim Unknown 10/22/2025 Medications albuterol HFA (PROVENTIL HFA,VENTOLIN HFA,PROAIR HFA) 90 mcg/actuation inhalerIndication s:Bronchospasm Prevention,Chroni c Obstructive Pulmonary Disease Inhale 1-2 puffs every 4 (four) hours as needed for wheezing or shortness of breath 019 Active ALPRAZolam (XANAX) 0.5 mg tabletIndications :anxiety Take 0.5 tablets (0.25 mg total) by mouth nightly as needed for anxiety or sleep 022 Active apixaban (ELIQUIS) 5 mg tabletIndications :atrial fibrillation,Fact or 5 leiden Take 1 tablet (5 mg total) by mouth 2 (two) times a day 019 Active mupirocin (BACTROBAN) 2 % ointmentIndicatio ns:Methicillin-Re sistant S. 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/ MRSA infection in Palate Apply 1 application (deactivated) to each nostril 3 (three) times a day 022 Active ergocalciferol (VITAMIN D) 50,000 unit capsuleIndication s:Vitamin D Deficiency Take 1 capsule (50,000 Units [...] 1 022 Active chlorhexidine (PERIDEX) 0.12 % solutionIndicatio ns:Mouth Infection Prevention Apply 15 mL to the mouth or throat 2 (two) times a day as needed (Uses right before takes Anat (gets sores in mouth couple days before gets Anat)) Active PARoxetine (PAXIL) 40 mg tabletIndications :Generalized Anxiety Disorder,Started in [place] r/t anxiety and nerves/ chronic pain Take 1 tablet (40 mg total) by mouth nightly 023 Active turmeric root extract 500 mg capsuleIndication s:Anti inflammatory/supp lement Take 1,000 mg by mouth with lunch Active acetaminophen-asp irin-caffeine (EXCEDRIN MIGRAINE) 250-250-65 mg per tabletIndications :Migraine Take 1 tablet by mouth every 6 (six) hours as needed for headaches (Migraine headache) Active fluticasone propionate (FLONASE) 50 mcg/actuation nasal sprayIndications: Methicillin-Resis tant S. Aureus Nasal Colonization,Nasa l Polyp Administer 2 sprays into each nostril 3 (three) times a day as needed for rhinitis or allergies Left nostril only (Dr told her to saturate it) Active rOPINIRole (REQUIP) 1 mg tabletIndications :Restless Legs Syndrome Take 1 tablet (1 mg total) by mouth nightly 024 Active calcium citrate-vitamin D3 (CITRACAL WITH D) 315 mg-6.25 mcg (250 unit) per tablet Take 1 tablet by mouth 2 (two) times a day Active umeclidinium-maya nteroL (ANORO ELLIPTA) 62.5-25 mcg/actuation blister with device Inhale 1 puff daily 1 each 024 Active ciprofloxacin (CILOXAN) 0.3 % ophthalmic solution [address] (NexIUM) 40 mg capsule daily Active diphenoxylate-atr opine (LOMOTIL) 2.5-0.025 mg per tablet TAKE 1 TABLET BY MOUTH 4 (FOUR) TIMES A DAY NEEDED FOR DIARRHEA 120 tablet [address] (PROTONIX) 40 mg EC tablet TAKE ONE TABLET BY MOUTH IN THE MORNING BEFORE BREAKFAST 30 tablet 11 025 Active eszopiclone (LUNESTA) 3 mg tablet 025 Active oxyCODONE-acetami nophen (PERCOCET) 10-325 mg per tablet 025 Active Humira Pen 40 mg/0.8 mL pen injector kitIndications:Cr ohn's Disease Inject 0.8 mL (40 mg total) under the skin every 7 days Sundays 12 each 025 Active plecanatide (Trulance) 3 mg tabletIndications :Other constipation Take 1 tablet (3 mg total) by mouth daily Please update office on your symptoms in 1 week. 30 tablet 1 025 Active predniSONE (DELTASONE) 5 mg tablet TAKE A HALF TABLET BY MOUTH DAILY PATCH NEEDS APPOINTMENT BEFORE MORE REFILLS 15 tablet Active Additional Information Patient not taking.Reported on 08/10/2025 ciprofloxacin-dex AMETHasone (CIPRODEX) otic suspension Active folic acid (FOLVITE) 1 mg tablet Take 2 tablets (2 mg total) by mouth daily 60 tablet 11 2025 Active aspirin 81 mg enteric coated tablet Take 1 tablet (81 mg total) by mouth daily 30 tablet 11 2025 Active atorvastatin (LIPITOR) 40 mg tablet Take 1 tablet (40 mg total) by mouth daily 30 tablet 11 2025 Active mercaptopurine (PURINETHOL) 50 mg tabletIndications :Crohn's disease of both small and large intestine with other complication TAKE ONE TABLET BY MOUTH DAILY LABS DUE 06/2025 30 tablet Active ketorolac (ACULAR) 0.5 % ophthalmic solution 024 2024 Discontinued mercaptopurine (PURINETHOL) 50 mg tabletIndications :Crohn's disease of both small and large intestine with other complication TAKE ONE TABLET BY MOUTH DAILY LABS DUE 06/2025 30 tablet 025 2024 Discontinued Active Problems Problem Noted Date Diagnosed Date Anger reaction 10/27/2025 Metastatic cancer 10/27/2025 Ovarian cancer 10/27/2025 Overview (10/27/2025): 08/2025 [facility] Internal Medicine Physician/Onc referral Severe recurrent major depre ssion without [...] Arthralgia 07/31/2025 Anxiety 07/31/2025 Anemia, macrocytic 07/31/2025 [id number] deficiency 07/31/2025 Overview (10/27/2025): Dr. Xuan locke. Diagnosed with Dr. Solomon Stanley 08/2024. Dr. Xuan locke. Diagnosed with Dr. Solomon Stanely 08/2024. Acute right lower quadrant pain 07/31/2025 [...] 11/13/2023 Assessment & Plan (11/13/2023 4:00 PM HOSPITALITY MANAGER): PO2W cataract extraction (CE)/posterior chamber intraocular lens [...] (PSC) cataracts both eyes (OU) secondary to [place] [facility] prednisone usage +1D otc readers for distance [...] referral. - We will have MRE from [facility] read by our radiologists. Assessment & Plan (02/06/2023 12:22 PM CDT): MRE on 12/08/22 showed cystic lesions of the pancreas measuring up to 6mm. The patient only had an image of the impression of this report, and we do not have access to the report or study itself. - Patient has given authorization to release MRE report from [facility]. We will also obtain the images [...] her abdominal pain on recent MRE at [facility]. We will obtain this study and [...] Surgeries: ileocolic resection in [address] [facility] - 6 inches of small [...] the IC valve, prompting ileocolic resection ([facility]) - 6 inches resected. Path [...] the IC valve, prompting ileocolic resection ([facility]) - 6 inches resected. Path [...] the IC valve, prompting ileocolic resection ([facility]) - 6 inches resected. Path [...] dose. Assessment & Plan (10/23/2022 11:27 AM HOSPITALITY MANAGER): Diagnosis in 2014. Humira since Mar, 2016. [...] by patient yet. -recent blood work from [facility] reviewed. Noted to have urinalysis, CBC, CMP, [...] continue. Assessment & Plan (09/25/2022 10:44 AM HOSPITALITY MANAGER): Diagnosis in 2014. Humira since Mar, 2016. [...] today -Talked to her GI group at [facility] Dr Torres on-call, suggested if pt is stable to d/c to be admitted [facility] work her up further. Talking to [...] Encounters Date Type Department Care Team Description 11/02/2025 Results Follow-Up [facility] Medicine Obstetrics and Gynecology [address] [facility] [address]th [place] [address] [place] [phone] Linda Ponce MD Surgical pathology 10/30/2025 Telephone [facility] [address] 13th [place] [phone] Kelley Baca RN 10/30/2025 Telephone Radiology 1 [place] [address] Dana Sifuentes RT 10/29/2025 Orders Only [facility] [address] 13th [place] [phone] Kelley Baca RN Pelvic mass (Primary Dx); Cervical mass 10/28/2025 Results [facility]-Up [facility] [address] [place] [phone] Linda Ponce MD MR Body Outside Consult 10/27/2025 12:12 PM HOSPITALITY MANAGER - 10/27/2025 11:59 PM HOSPITALITY MANAGER Hospital Encounter [facility] PATHOLOGY [address] [facility] 3rd [place] [address] Pelvic mass Discharge Disposition: Discharge to home or self care 10/27/2025 11:56 AM HOSPITALITY MANAGER - 10/27/2025 11:59 PM HOSPITALITY MANAGER Hospital Encounter [facility] Rad[facility] [address] [place] [address] Diagnosis unknown Discharge Disposition: Discharge to home or self care 10/27/2025 10:30 AM HOSPITALITY MANAGER Office Visit [facility] Medicine Obstetrics and Gynecology [address] 13th [place] [address] Linda Ponce MD Pelvic mass (Primary Dx); Cervical mass 10/27/2025 Orders Only [facility] [address] [place] [phone] Kelley Baca RN Pelvic mass (Primary Dx) 10/26/2025 7:00 AM HOSPITALITY MANAGER Ancillary Procedure [facility] [address] [facility] [address] [place] [address] Palpitations 10/13/2025 Telephone [facility] [address] [place] [address] [place] [phone] Roxane Washington 10/13/2025 Results Follow-Up [facility] [address] [facility] Office Building [address] [place] [address] Gabriella Cope RMA Lipid panel, CRP (cardiac risk), Homocysteine 09/24/2025 7:30 AM HOSPITALITY MANAGER Ancillary Procedure [facility] [address] [facility] [address] [place] [phone] Bilateral carotid bruits; Palpitations 09/24/2025 7:00 AM HOSPITALITY MANAGER Ancillary Procedure [facility] [address] [facility] [address] [place] [phone] Palpitations 09/24/2025 Telephone [facility] [address] [place] [address] Daiana Rodríguez RMA oncology note 09/23/2025 Results Follow-Up [facility] Building [address] [place] [address] Gabriella Cope RMA Extended/Penitentiary Holter Patch (>48 hours up to 7 days), Advanced Lipid Panel, Cardio IQ, CARDIO IQ(R) VITAMIN D, 25-HYDROXY, LC/MS/MS, Additional followed-up results: 4 09/23/2025 Telephone [facility] Pulmonary at [address] [place] [address] [facility] 09/22/2025 Telephone [facility] [address] [place] [address] [place] [phone] Don Prasad MD Prior Auth (Echo) 09/09/2025 1:30 PM CDT Ancillary Procedure [facility] [address] [place] [address] [place] [phone] Palpitations 09/09/2025 1:00 PM CDT Office Visit [facility] Medicine Cardiology [address] [facility] [address] [place] [address] Don Prasad MD Bilateral carotid bruits (Primary Dx); Palpitations; Paroxysmal atrial fibrillation (HCC) 09/09/2025 Results Follow-Up [facility] Medicine Endocrinology Metabolism and Lipid [address] [place] [phone] Lana Carmona DO Cortisol baseline, Cortisol 30 min, Cortisol 60 min 09/08/2025 8:40 AM CDT - 09/08/2025 11:59 PM CDT Hospital Encounter [facility] [address] [place] [address] High risk medications (not anticoagulants) long-term use Discharge Disposition: Discharge to home or self care 09/08/2025 7:30 AM CDT Infusion [facility] Medicine Infusion Therapy [address] [place] [phone] High risk medications (not anticoagulants) long-term use (Primary Dx) 09/07/2025 Telephone [facility] Medicine Cardiology [address] [facility] 8th [place] [address] [place] [address] Summer Garcia 08/24/2025 Orders Only [facility] Medicine Endocrinology Metabolism and Lipid [address] [place] [phone] Lana Carmona DO Long-term use of high-risk medication (Primary Dx) 08/24/2025 Orders Only [facility] Medicine Endocrinology Metabolism and Lipid [address] [place] [phone] Karin Birmingham RMA Abnormal laboratory test result (Primary Dx); Other hyperlipidemia from Last 3 Months Surgical History Surgery Date Site/Laterality Comments COLONOSCOPY 05/11/2020 [place] SINUS SURGERY 09/28/2016 Successful embolization of left [...] Comments Crohn's disease (HCC) Cancer of appendix ([facility] 2018 Factor 5 Leiden mutation, heterozygous Arnold-Chiari malformation, type I (HCC) CVA (cerebral vascular accident) ([facility]) 5 Had a second stroke 08/20/2015. Right [...] Candy Alzheimer's disease Mother Harika-Bello Anemia Mother Harika-Ebllo Bleeding Disorder Mother Harika-Bello COPD Mother Harika-Bello [...] 4 Relation Name Status Comments Brother 1 Zachairah Alive Brother 2 Parrish Alive Brother 3 [...] Past Smokeless Tobacco: Never Tobacco Cessation:Counseling Given: No Comments:Glad I quit Passive Exposure Comments:Dad smoked [...] on file Legal Sex Female 10:13 AM HOSPITALITY MANAGER Gender Identity Female 06/12/2023 3:27 PM CDT Sexual Orientation Lesbian 06/12/2023 3: 27 PM CDT Last Filed Vital Signs Vital Sign Reading Time Taken Comments Blood Pressure 111/57 10/27/2025 10:52 AM HOSPITALITY MANAGER Pulse 103 10/27/2025 10:52 AM HOSPITALITY MANAGER Temperature 36.7 C (98.1 F) 10/27/2025 10:52 AM HOSPITALITY MANAGER Respiratory Rate 16 10/27/2025 10:5 2 AM HOSPITALITY MANAGER Oxygen Saturation 97% 10/27/2025 10: 52 AM HOSPITALITY MANAGER Inhaled Oxygen Concentration - - Weight 74.7 kg (164 lb 11.2 oz) 025 10:52 AM HOSPITALITY MANAGER Height 165.1 cm (5' 5) 10/27/2025 10:5 2 AM HOSPITALITY MANAGER Body Mass Index 27.41 10/27/2025 10:52 AM HOSPITALITY MANAGER Plan of Treatment Scheduled Procedures Name Priority [...] 2) 1990 Depression Screening 09/25/2023 09/25/2022, 04/24/20 Albumin Creatinine Ratio, Urine 10/09/2024 Dilated Eye Exam 11/30/2024 11/30/2023, , 08/09/2023 Influenza Vaccine (#1) 2025 Lung Cancer Screening 10/14/2025 10/13/2024 Hemoglobin A1C 02/07/2026 08/10/2025, 08/28/2023 eGFR 08/10/2026 08/10/2025, 07/21, 03/24/2024, Additional history exists Lipid Panel 10/08/2026 10/08/2025, 07/21, 08/28/2023 Colon Cancer Screening-Colonoscopy 02/11/20352024, 03/14/2023 Goals Goal [...] as needed Medical Devices Implanted Type Area Clam Shucking Machine Tender Device Identifier Shelf Expiration Date Model / Serial / Lot [employer] Lens Iol Cna0t0.230 [employer] Cna0t0.230 - [id number] - [id number] Implanted:Qty: 1 on 10/29/2023 by Melvin San MD at [facility] Left: Eye [employer] [id number] 06/25/2026 CNA0T0.23 0 / [id number] / Procedures Procedure Name Priority Date/Time Associated Diagnosis Comments SURGICAL PATHOLOGY Routine 10/27/2025 12 :12 PM HOSPITALITY MANAGER Pelvic mass MR BODY OUTSIDE CONSULT Routine 10/27/2025 11:56 AM HOSPITALITY MANAGER Diagnosis unknown SKIN BIOPSY Routine 10/27/2025 11:25 AM HOSPITALITY MANAGER Cervical mass NM MPI SPECT (REST AND/OR STRESS) MULTIPLE STUDIES Schedule Routine, Read Routine (OP Routine) 10/26/2025 8:27 AM HOSPITALITY MANAGER Palpitations HOMOCYSTEINE Routine 10/08/2025 9:05 AM HOSPITALITY MANAGER Bilateral carotid bruits Palpitations CRP, HIGH SENSITIVITY Routine 10/08/2025 9:05 AM HOSPITALITY MANAGER Bilateral carotid bruits Palpitations LIPID PANEL Routine 10/08/2025 9:05 AM HOSPITALITY MANAGER Bilateral carotid bruits Palpitations US CAROTIDS DUPLEX BILATERAL Schedule Routine, Read Routine (OP Routine) 09/24/2025 8:07 AM HOSPITALITY MANAGER Bilateral carotid bruits Palpitations TRANSTHORACIC ECHO (TTE) COMPLETE W DOPPLER/CF WO CONTRAST Routine 09/24/2025 8:00 AM HOSPITALITY MANAGER Palpitations CARDIO IQ(TM) HIGH SENSITIVITY CRP Routine 09/18/2025 9:58 AM CDT Palpitations CARDIO IQ(R) HOMOCYSTEINE Routine 09/18/2025 9:58 AM CDT Palpitations CARDIO IQ(R) VITAMIN D, 25-HYDROXY, LC/MS/MS Routine 09/18/2025 9:58 AM CDT Palpitations ADVANCED LIPID PANEL, CARDIO IQ Routine 09/18/2025 9:58 AM CDT Palpitations EXTENDED/HALF-WAY HOLTER PATCH (>48 HOURS UP TO 7 DAYS) Routine 09/09/2025 2:33 PM CDT Palpitations ECG 12-LEAD Routine 09/09/2025 2:01 PM CDT [...] High risk medications (not anticoagulants) long-term use HEMOGLOBIN A1C Routine 08/10/2025 7:22 AM CDT Prediabetes EGFR Routine 08/10/2025 7:15 AM CDT Iron deficiency anemia, unspecified iron deficiency anemia type COLONOSCOPY 02/11/2025 9:[address] LUNG CANCER SCREENING Schedule Routine, Read Routine (OP Routine) 10/13/2024 4:36 PM HOSPITALITY MANAGER Nicotine dependence, cigarettes, in remission ALBUMIN CREATININE RATIO, URINE Routine 10/09/2023 11:48 AM HOSPITALITY MANAGER Prediabetes from Last 3 Months or Most Recently Relevant to Health Maintenance Results * Surgical pathology (10/27/2025 12:12 PM HOSPITALITY MANAGER) Tissue (Cervix, biopsy) 10/27/2025 12:12 PM HOSPITALITY MANAGER 10/27/2025 1:58 PM HOSPITALITY MANAGER Narrative PATHOLOGY [facility] - 10/30/2025 11:29 AM HOSPITALITY MANAGER EPIC results best viewed via link to PDF [facility] of Surgical [place] [address] Note to Patients: This report may contain a detailed description of human tissue sent by a health care provider to the laboratory for pathologic evaluation. The content of this report is essential for diagnosis and may provide important critical findings. This information may be unfamiliar to patients to review without a medical professional present. It is advised that the patient review this report in the presence of a health care provider who can answer questions and explain the details. SURGICAL PATHOLOGY REPORT FINAL Patient Name: ALEXANDRU THOAMS Gender: F : 1970 (Age: 54) Address: [address] [place] [address] Hospital #: [id number] Taken:10/27/2025 Received:10/27/2025 Reported: 10/30/2025 Patient Type: [facility] SPECIMEN Service: Laboratory Location: Physician(s): Linda Ponce M.D. 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 Olga Thompson M.D. Report Electronically Reviewed and Signed Out By Olga Thompson M.D. 10/30/2025 11:29:48 Microscopic Description and Comment: Sections show that the tissue is essentially entirely replaced by malignant infiltrative goblet cells/signet cells that are dissecting through the stroma and associated with extracellular mucin. 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 Immunohistochemical stains (single antibody procedures with appropriate controls) is performed. 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 Few background endocervical glands are also noted. Hiwot Hernandez M.D. History: The patient is a 54-year-old woman with a pelvic mass. Operative Procedure: cervical biopsy Specimen(s) Received: A: Firm pelvic mass Gross Description: Received in formalin labeled with patient identifiersfirm pelvic mass is a single fragment of soft rosas-white tissue (0.3 cm in greatest dimension). The specimen is filtered and submitted entirely in cassette A1. Jar 0 bao2/10/28/2025 08:43 PA(s): TAMI Doll (ASCP)CM By this signature, I attest that the above diagnosis is based upon my personal examination of the slides(and/or other material). Addenda/Procedures The performance characteristics of some immunohistochemical stains, fluorescence in-situ hybridization tests and immunophenotyping by flow cytometry cited in this report (if any) were determined by the Surgical Pathology and Flow Cytometry Departments at [facility] as part of an ongoing ict quality assurance engineer program and in compliance with federally mandated regulations drawn from the Clinical Laboratory Improvement Act of 1988 (CLIA '88). Some of these tests rely on the use of analyte specific reagents and are subject to specific labeling requirements by the US Food and Drug Administration. Such diagnostic tests may only be performed in a facility that is certified by the Department of Health and Human Services as a high complexity laboratory under CLIA '88. The FDA has determined that such clearance or approval is not necessary. This test is used for clinical purposes. It should not be regarded as investigational or for research. Nevertheless, federal rules concerning the medical use of analyte specific reagents require that the following disclaimer be attached to the report: This test was developed and its performance characteristics determined by the Surgical Pathology and Flow Cytometry Departments of [facility]. It has not been cleared or approved by the U. S. Food and Drug Administration. IMAGES AND SCANNED DOCUMENTS, IF INCLUDED, ONLY VIEWABLE IN PDF VERSION OF REPORT Linda Ponce MD LAB PATHOLOGY ORDERABLE S Final Result PATHOLOGY [facility] 3rd Floor [place], [place] [phone] * MR Body Outside Consult (10/27/2025 11:56 AM HOSPITALITY MANAGER) Anatomical Region Laterality Modality Body N/A Magnetic Resonan ce 10/27/2025 12:4 8 PM HOSPITALITY MANAGER Impressions 10/28/2025 5:44 PM HOSPITALITY MANAGER 1. Enhancing soft tissue masses involving the right and less so left adnexa with associated peritoneal nodularity are characterized as O-RADS 5. However, given the history of goblet cell carcinoma of the appendix, these findings are suspicious for recurrent metastatic disease. The omental cake may be amenable to percutaneous sampling. 2. Nodular deposits along the sigmoid colon serosa as well as along the rectouterine space with tethering of the bowel and uterus. These findings are also likely related to additional sites of metastatic disease. The findings, conclusions and recommendations within this report do not replace the initial findings, conclusions and recommendations made at the facility where the study was performed based upon the imaging and clinical condition at that time. Comparison with the prior report and clinical history is necessary. The provided images may or may not represent the [place] source data set and thus may contain changes that may lower the accuracy of this second-opinion interpretation. Dictated by: Melissa Penaloza MD, MPHS The radiology attending physician has personally reviewed this study, and had reviewed and/or edited this written report and agrees with it. Electronically signed by: Romario Fontenot M.D. Narrative 10/28/2025 5:44 PM HOSPITALITY MANAGER EXAMINATION: RADIOLOGY CONSULTATION ON OUTSIDE IMAGING STUDY STUDY INITIALLY PERFORMED: 10/10/2025 at [facility]. TYPE OF STUDY: Multiple MRI images of the pelvis with and without IV contrast are provided at the time of this interpretation. CONTRAST ROUTE: Contrast was administered via the intravenous route. The protocol was adequate to address the clinical question. The outside final report was not available at the time of this second opinion interpretation. 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 COMPARISON: MRI 01/17/[address] 04/18/2024. FINDINGS: Reproductive organs: There is a heterogeneously T2 intermediate and T2 hypointense lesion in the region of the right adnexa measuring 3.9 x 2.9 x 4.1 cm (series 01/09, 03/10). This is new from available comparison studies. The lesion demonstrates areas of mild diffusion restriction and avid, progressive enhancement Similar ill-defined T2 hypointense nodularity with associated enhancement and diffusion restriction in the left adnexa which appears to involve the sigmoid serosal surface (series 09/03, 10/07, and ). Additionally, there are areas of T2 hypointensity with associated T2 hyperintensity in the right rectouterine rectocervical space tethering of the torus to the adjacent colon (series 08/11, 08/27, and 10/11). There is associated hazy nodularity through the peritoneal space (series 01/14). There is is mild prominence of the endocervical canal (series 08/08). Bladder: No wall thickening or masses. Bowel: Suspected serosal disease of the mid sigmoid as above. Areas of chronic tethering to the posterior uterine body as above. No bowel obstruction. Lymph nodes: Subcentimeter mesenteric/peritoneal deposits in the right lower quadrant (series , for example). Vasculature: The pelvic vasculature is patent. Bones: No suspicious osseous lesions. Other findings: No free fluid. Mesenteric/peritoneal nodularity as above. No abdominal wall collections or masses. Procedure Note Romario Fontenot MD - 10/28/2025 EXAMINATION: RADIOLOGY CONSULTATION ON OUTSIDE IMAGING STUDY STUDY INITIALLY PERFORMED: 10/10/2025 at [facility]. TYPE OF STUDY: Multiple MRI images of the pelvis with and without IV contrast are provided at the time of this interpretation. CONTRAST ROUTE: Contrast was administered via the intravenous route. The protocol was adequate to address the clinical question. The outside final report was not available at the time of this second opinion interpretation. 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 COMPARISON: MRI 01/17/[address] 04/18/2024. FINDINGS: Reproductive organs: There is a heterogeneously T2 intermediate and T2 hypointense lesion in the region of the right adnexa measuring 3.9 x 2.9 x 4.1 cm (series 01/09, 03/10). This is new from available comparison studies. The lesion demonstrates areas of mild diffusion restriction and avid, progressive enhancement Similar ill-defined T2 hypointense nodularity with associated enhancement and diffusion restriction in the left adnexa which appears to involve the sigmoid serosal surface (series 09/03, 10/07, and ). Additionally, there are areas of T2 hypointensity with associated T2 hyperintensity in the right rectouterine rectocervical space tethering of the torus to the adjacent colon (series 08/11, 08/27, and 10/11). There is associated hazy nodularity through the peritoneal space (series 2/26). There is is mild prominence of the endocervical canal (series /). Bladder: No wall thickening or masses. Bowel: Suspected serosal disease of the mid sigmoid as above. Areas of chronic tethering to the posterior uterine body as above. No bowel obstruction. Lymph nodes: Subcentimeter mesenteric/peritoneal deposits in the right lower quadrant (series 16/, for example). Vasculature: The pelvic vasculature is patent. Bones: No suspicious osseous lesions. Other findings: No free fluid. Mesenteric/peritoneal nodularity as above. No abdominal wall collections or masses. IMPRESSION: 1. Enhancing soft tissue masses involving the right and less so left adnexa with associated peritoneal nodularity are characterized as O-RADS 5. However, given the history of goblet cell carcinoma of the appendix, these findings are suspicious for recurrent metastatic disease. The omental cake may be amenable to percutaneous sampling. 2. Nodular deposits along the sigmoid colon serosa as well as along the rectouterine space with tethering of the bowel and uterus. These findings are also likely related to additional sites of metastatic disease. The findings, conclusions and recommendations within this report do not replace the initial findings, conclusions and recommendations made at the facility where the study was performed based upon the imaging and clinical condition at that time. Comparison with the prior report and clinical history is necessary. The provided images may or may not represent the [place] source data set and thus may contain changes that may lower the accuracy of this second-opinion interpretation. Dictated by: Melissa Penaloza MD, MPHS The radiology attending physician has personally reviewed this study, and had reviewed and/or edited this written report and agrees with it. Electronically signed by: Romario Fontenot M.D. Linda Ponce MD IMG MRI PROCEDURES Charisse l Result * SKIN BIOPSY (10/27/2025 11:25 AM HOSPITALITY MANAGER) Narrative Linda Ponce MD - 10/27/2025 11:25 AM HOSPITALITY MANAGER Linda Ponce MD 10/27/2025 3:40 PM Ectocervical Biopsy Date/Time: 10/27/2025 11:25 AM Performed by: Linda Ponce MD Authorized by: Linda Ponce MD Patient tolerance: patient tolerated the procedure well with no immediate complications Comments: Speculum was placed, limited 2/2 patient discomfort. Portion of the cervix visualized.Bimanual performed. Normal rim of vagina. Pt has hx of fibroid documented on imaging. Tishler biopsy performed. Monsels applied. us Linda Ponce MD IN CLINIC/BEDSIDE ORDER LILI Edited Result - Final * NM MPI SPECT (Rest and/or Stress) Multiple Studies (10/26/2025 8:27 AM HOSPITALITY MANAGER) Anatomical Region Laterality Modality Body N/A Electrocardiogra phy Narrative 10/27/2025 6:41 AM HOSPITALITY MANAGER Table formatting from the original result was not included. [facility] [address] [address] Nuclear MPI Pharmaceutical Study Patient Name: Alexandru Thomas Gender: female : 1970 Date of Study: 10/26/25 Ordering Provider: Don Prasad MD Primary care Provider: Kassandra Hooks NP Pt BMI: 28 Examination Myocardial Perfusion Imaging: Pharmacologic/Spect with Gated Imaging and Ejection Fraction Measurement. Cardiac History TIA. Reason for Examination palpitations. Cardiac Risk Factors hypertension and dyslipidemia. Stress Procedure Baseline or Resting EKG Normal Pharmaceutical Parameters: Chemical Test duration: 5 min 05 sec. Baseline BP: 102 / 61 mm Hg Baseline HR: 57 /min Peak BP: 111 / 71 mm Hg Peak HR: 96 /min 57 % of PMHR HR Response to Pharmaceutical: Normal BP Response to Pharmaceutical: Normal Functional Capacity: below average ST changes: None Symptoms during Pharmaceutical Injection : chest pressure, headache, resolved during recovery Reasons for Termination: End of Protocol Nuclear Procedure Radiopharmaceutical: 10.3 mCi Tc-99M Tetrofosmin IV for rest and 31.5 mCi Tc-99M Tetrofosmin IV for stress. Protocol: Standard myocardial perfusion images were obtained after resting injection of Tc-99M Tetrofosmin intravenously. Resting images were obtained after a 30 minutes delay. Subsequently, an intravenous infusion of 0.4 mg/5ml Regadenoson given over a 10 second injection was given under the supervision of the physician. Tc-99M tetrofosimin was injected intravenously 10-20 seconds post lexiscan/saline flush injection and standard myocardial images were obtained after a 30 minute delay. Images are obtained with a solid state camera. Rest images are obtained in the upright position and stress images are obtained in both upright and supine positions. The overall quality of the study is good. Motion correction was not performed. Regadenoson MPI Stage Time BP HR Sitting 0748 102/61 59 Regadenoson 0758 111/71 86 Recovery 0800 109/65 80 Images Interpretation Gated Spect imaging reveals a small nontransmural fixed perfusion defect of mild severity in the inferoapical wall. Most likely diaphragmatic attenuation. LV wall motion normal. LV wall function normal with LVEF of 68%. No LV dilatation present. No transischemic dilatation present. Impression Pharmaceutical Myocardial perfusion imaging is abnormal. Small nontransmural fixed perfusion defect of mild severity in the inferoapical wall. Most likely diaphragmatic attenuation. No ischemia noted. LV wall motion normal. LVEF = 68% No chest pain during stress and no ecg changes. There are no previous studies available for comparison at this facility. Recommendation Continue medical therapy. Finding discussed with the patient personally. Stress myocardial perfusion imaging has a known 10-15% false negative rate and a small (5-10%) false positive rate. I have personally supervised and interpreted this study. I have reviewed and/or edited and agree with the written comments contained within the report. us Don Prasad MD IMG NM PROCEDURES Final Result * (ABNORMAL) CRP (cardiac risk) (10/08/2025 9:05 AM HOSPITALITY MANAGER) [facility] Signature hsCRP 16.0(H) mg/L [facility] Comment: Reference Range Optimal <1.0 Florentino PS et al. Endocr Pract.2017;23(Suppl 2):1-87. For ages >17 Years: hs-CRP mg/L Risk According to AHA/CDC Guidelines <1.0 Lower relative cardiovascular risk. 1.0-3.0 Average relative cardiovascular risk. 3.1-10.0 Higher relative cardiovascular risk. Consider retesting in 1 to 2 weeks to exclude a benign transient elevation in the baseline CRP value secondary to infection or inflammation. >10.0 Persistent elevation, upon retesting, may be associated with infection and inflammation. Jose TA, Luis GA, Naresh RW, et al. Markers of inflammation and cardiovascular disease: application to clinical and public health practice: A statement for healthcare professionals from the Centers for Disease Control and Prevention and the [place] [employer]. Circulation 2003; 107(3): 499-511. Blood 10/08/2025 9:05 AM HOSPITALITY MANAGER 10/09/2025 6:21 AM HOSPITALITY MANAGER Narrative [facility] - 10/12/2025 11:42 AM HOSPITALITY MANAGER FASTING:YES FASTING: YES Don Prasad MD LAB BLOOD ORDERABLES Final Res ult Performing Organization Address [facility] de Phone Number [facility] [address] [place] [address] * (ABNORMAL) Homocysteine (10/08/2025 9:05 AM HOSPITALITY MANAGER) Homocysteine 15.3(H) < or = 13.4 umol/L [facility] Comment: Homocysteine is increased by functional deficiency of folate or vitamin B12. Testing for methylmalonic acid differentiates between these deficiencies. Other causes of increased homocysteine include renal failure, folate antagonists such as methotrexate and phenytoin, and exposure to nitrous oxide. Israel J, et al., [employer] Med. 1999;131(5):331-9. Blood 10/08/2025 9:05 AM HOSPITALITY MANAGER 10/09/2025 6:21 AM HOSPITALITY MANAGER Narrative [facility] - 10/12/2025 11:42 AM HOSPITALITY MANAGER FASTING:YES FASTING: YES us Don Prasad MD LAB BLOOD ORDERABLES Final Res ult Performing Organization Address [facility] Co de Phone Number [facility] [address] [place] [address] * (ABNORMAL) Lipid panel (10/08/2025 9:05 AM HOSPITALITY MANAGER) Cholesterol 179 <200 mg/dL [facility] HDL 35(L) > OR = 50 mg/dL [facility] Triglycerides 166(H) <150 mg/dL [facility] LDL 116(H) mg/dL (calc) [facility] Comment: Reference range: <100 Desirable range <100 mg/dL for primary prevention; <70 mg/dL for patients with CHD or diabetic patients with > or = 2 CHD risk factors. LDL-C is now calculated using the Vinnie-Sullivan calculation, which is a validated novel method providing better accuracy than the Friedewald equation in the estimation of LDL-C. Vinnie SS et al. FAISAL. 2013;310(19): 3280-4480 (http://education.ApolloMed/faq/MVA267) Chol/HDL ratio 5.1(H) <5.0 (calc) [facility] Non-HDL, (LDL+VLDL) 144(H) <130 mg/dL (calc) [facility] Comment: For patients with diabetes plus 1 major ASCVD risk factor, treating to a non-HDL-C goal of <100 mg/dL (LDL-C of <70 mg/dL) is considered a therapeutic option. Blood 10/08/2025 9:05 AM HOSPITALITY MANAGER 10/09/2025 6:21 AM HOSPITALITY MANAGER Narrative [facility] - 10/12/2025 11:42 AM HOSPITALITY MANAGER FASTING:YES FASTING: YES Don Prasad MD LAB BLOOD ORDERABLES Final Res ult [facility] [address] [place] [address] * US Carotids Duplex Bilateral (09/24/2025 8:07 AM HOSPITALITY MANAGER) Anatomical Region Laterality Modality Vascular Bilateral Ultrasound 09/24/2025 7:46 AM HOSPITALITY MANAGER Narrative 09/26/2025 4:43 AM HOSPITALITY MANAGER [facility], [address] [place] [address] Carotid Duplex Report Patient Name: ALEXANDRU THOMAS L : 1970 (54y 10m) Sex: F Study Date: 09/24/2025 07:46:35 AM Painter Tumbling Barrel: Loyda Jones RVT Location: [facility] Order Provider: DON PRASAD Heart Rate: 64 BP: R 126/67, L 118/73 Quality: Adequate Ref Provider: DON PRASAD PROCEDURES: Arterial Report: [id number]: Duplex scan of extracranial arteries; complete bilateral study. INDICATIONS: R09.89 Other specified symptoms and signs involving the circulatory and respiratory systems and R00.2 Palpitations. VASCULAR HISTORY: Risk factors include: hypertension, diabetes, hyperlipidemia and coronary artery disease. History of TIA, CVA, and AFIB. CONCLUSIONS: No stenosis of the right or left common carotid arteries. No stenosis of the right internal carotid artery. Mild stenosis of the left internal carotid artery (<50% stenosis). No stenosis of the right or left external carotid arteries. Antegrade flow of the right and left vertebral arteries. [place] [employer] MEASUREMENTS: Right PSV (cm/s) Right EDV (cm/s) Left PSV (cm/s) Left EDV (cm/s) CCA Prx 84 21 95 23 CCA Dst 88 25 101 29 ICA Prx 63 20 65 20 ICA Mid 91 33 100 37 ICA Dst 85 26 106 45 ECA 99 19 103 21 ICA/CCA Ratio 1.0 1.1 Vertebral 62 20 33 10 FINDINGS: Blood Pressure: Right BP: 126/67 mmHg. Left BP: 118/73 mmHg. Right CCA: The right common carotid artery is normal. Right ICA: The right internal carotid artery is normal. Right ECA: The right external carotid artery is normal. Right Vert: Normal antegrade flow of the vertebral artery. Left CCA: The left common carotid artery is normal. Left ICA: Internal Carotid Artery Plaque Characteristics: irregular and heterogenous. Mild atherosclerosis (<50% stenosis) of the proximal internal carotid artery. Left ECA: The left external carotid artery is normal. Left Vert: Normal antegrade flow of the vertebral artery. COMPARISONS: No prior study. ATTESTATION: I have reviewed and interpreted the pertinent images and measurements of this study. I attest to the conclusions in the final report that is provided above. DISCLAIMER: The study images and the final report will be retained in the patient chart by the Vascular Laboratory for the legally required time period. This chart constitutes the legal record of any testing performed. ICA STENOSIS CRITERIA: Degree of Stenosis, % ICA PSV, cm/sec Plaque Estimate, % ICA/CCA Ratio ICA EDV, cm/sec Normal <180 None <2.0 <40 <50 <180 <50 <2.0 <40 50-69 180-230 >50 2.0-4.0 40-100 >70 but less than near occlusion >230 >50 >4.0 >100 Near Occlusion High, low, or undetectable Visible Variable Variable Total Occlusion Undetectable Visible, no detectable lumen Not applicable Not applicable Electronically Signed By: Don Prasad MD 09/26/2025 4:41:49 AM HOSPITALITY MANAGER Electronically Signed By: Don Prasad MD 09/26/2025 4:41:49 AM HOSPITALITY MANAGER Carotid Arteries Procedure Note Don Prasad MD - 09/26/2025 [facility], [address] [place] [address] Carotid Duplex Report Patient Name: ALEXANDRU THOMAS L : 1970 (54y 10m) Sex: F Study Date: 09/24/2025 07:46:35 AM Painter Tumbling Barrel: Loyda Jones RVT Location:[facility] Order Provider: DON PRASAD Heart Rate: 64 BP: R 126/67, L 118/73 Quality: Adequate Ref Provider: DON PRASAD PROCEDURES: Arterial Report: [id number]: Duplex scan of extracranial arteries; completebilateral study. INDICATIONS: R09.89 Other specified symptoms and signs involving the circulatory andrespiratory systems and R00.2 Palpitations. VASCULAR HISTORY: Risk factors include: hypertension, diabetes, hyperlipidemia and coronaryartery disease. History of TIA, CVA, and AFIB. CONCLUSIONS: No stenosis of the right or left common carotid arteries. No stenosis of the right internal carotid artery. Mild stenosis of theleft internal carotid artery (<50% stenosis). No stenosis of the right or left external carotid arteries. Antegrade flow of the right and left vertebral arteries. [place] [employer] MEASUREMENTS: Right PSV (cm/s) Right EDV (cm/s) Left PSV (cm/s) Left EDV (cm/s) CCA Prx 84 21 95 23 CCA Dst 88 25 101 29 ICA Prx 63 20 65 20 ICA Mid 91 33 100 37 ICA Dst 85 26 106 45 ECA 99 19 103 21 ICA/CCA Ratio 1.0 1.1 Vertebral 62 20 33 10 FINDINGS: Blood Pressure: Right BP: 126/67 mmHg. Left BP: 118/73 mmHg. Right CCA: The right common carotid artery is normal. Right ICA: The right internal carotid artery is normal. Right ECA: The right external carotid artery is normal. Right Vert: Normal antegrade flow of the vertebral artery. Left CCA: The left common carotid artery is normal. Left ICA: Internal Carotid Artery Plaque Characteristics: irregular andheterogenous. Mild atherosclerosis (<50% stenosis) of the proximal internal carotidartery. Left ECA: The left external carotid artery is normal. Left Vert: Normal antegrade flow of the vertebral artery. COMPARISONS: No prior study. ATTESTATION: I have reviewed and interpreted the pertinent images and measurements ofthis study. I attest to the conclusions in the final report that is provided above. DISCLAIMER: The study images and the final report will be retained in the patientchart by the Vascular Laboratory for the legally required time period. This chartconstitutes the legal record of any testing performed. ICA STENOSIS CRITERIA: Degree of Stenosis, % ICA PSV, cm/sec Plaque Estimate, % ICA/CCA Ratio ICAEDV, cm/sec Normal <180 None <2.0 <40 <50 <180 <50 <2.0 <40 50-69 180-230 >50 2.0-4.0 40-100 >70 but less than near occlusion >230 >50 >4.0 >100 Near Occlusion High, low, or undetectable Visible Variable Variable Total Occlusion Undetectable Visible, no detectable lumen Not applicableNot applicable Electronically Signed By: Don Prasad MD 09/26/2025 4:41:49 AM HOSPITALITY MANAGER Electronically Signed By: Don Prasad MD 09/26/2025 4:41:49 AM HOSPITALITY MANAGER Carotid Arteries us Don Prasad MD [facility] US PROCEDURES Final Result * TRANSTHORACIC ECHO (TTE) COMPLETE W DOPPLER/CF WO CONTRAST (09/24/2025 8:00 AM HOSPITALITY MANAGER) EF Mod BP 58 % CONS SCIMAGE Anatomical Region Laterality Modality Ultrasound 09/24/2025 7:09 AM HOSPITALITY MANAGER Narrative 09/26/2025 4:56 AM HOSPITALITY MANAGER [facility], [address] [place] [address] Transthoracic Echocardiographic Report Patient Name: ALEXANDRU THOMAS L : 1970 (54y 10m) Sex: F Study Date: 09/24/2025 07:09:07 AM Ht(Inch): 65 Wt(Lb): 164.99 BSA: 1.82 Painter Tumbling Barrel: Yancy RodriguezTJanak),[facility] Location: [facility] Order Provider: DON PRASAD Heart Rate: 61 BMI: 27.45 BP: 122 / 63 Ref Provider: DON PRASAD PROCEDURES: Echocardiographic Report: Transthoracic complete echo with strain imaging, 2D, spectral and tissue Doppler, color flow Doppler, M-mode. Contrast: Patient refused contrast. Technically difficult study due to: Body habitus. Poor acoustic windows. Patient unable to cooperate and poor patient compliance. Limited visualization of some cardiac structures precludes the ability to obtain complete measurements - INDICATIONS: R00.2 Palpitations. CONCLUSIONS: 1. Normal left ventricular size based on volume index. Normal LV wall thickness. Normal left ventricular systolic function. The Ejection Fraction (Melo's) is measured at 58 %. Normal diastolic function. The average global longitudinal strain is normal. 2. There are noLV regional wall motion abnormalities. 3. Normal right ventricular size. Normal right ventricular systolic function. 4. Normal mitral valve structure. Mild mitral valve regurgitation. No stenosis present. 5. Normal trileaflet aortic valve. No aortic regurgitation. No aortic valve stenosis. The mean transaortic gradient is 4 mmHg. The aortic valve area by the continuity equation (using VTI) is 2.3 cm2. Aortic valve dimensionless index is 0.81. 6. Normal tricuspid valve structure. No tricuspid regurgitation. No tricuspid valve stenosis. 7. Normal pulmonic valve structure. No pulmonic regurgitation. No pulmonic valve stenosis present. 8. Normal pericardium without pericardial effusion. ATTESTATION: I have personally reviewed and interpreted this study without fellow or resident. DISCLAIMER: The study images and the final report will be retained in the patient chart by the Echo Laboratory for the legally required time period. This chart constitutes the legal record of any testing performed. FINDINGS: Left Ventricle: Normal left ventricular size based on volume index. Normal LV wall thickness. Normal left ventricular systolic function. The Ejection Fraction (Melo's) is measured at 58 %. Normal diastolic function. The average global longitudinal strain is normal. The LV global strain is: -18.5 %. Regional Wall Motion: There are noLV regional wall motion abnormalities. Right Ventricle: Normal right ventricular size. Normal right ventricular systolic function. Left Atrium: The left atrium is normal in size. Right Atrium: The right atrium is normal in size. Mitral Valve: Normal mitral valve structure. Mild mitral valve regurgitation. No stenosis present. Aortic Valve: Normal trileaflet aortic valve. No aortic regurgitation. No aortic valve stenosis. The mean transaortic gradient is 4 mmHg. The aortic valve area by the continuity equation (using VTI) is 2.3 cm2. Aortic valve dimensionless index is 0.81. Tricuspid Valve: Normal tricuspid valve structure. No tricuspid regurgitation. No tricuspid valve stenosis. Pulmonic Valve: Normal pulmonic valve structure. No pulmonic regurgitation. No pulmonic valve stenosis present. Pericardium: Normal pericardium without pericardial effusion. Aorta: The ascending aorta is normal in size when indexed. IVC: IVC is normal in size. MEASUREMENTS: 2D/MM Value Range Doppler Value Range LVIDd 2D 4.9 cm [ 3.8 - 5.2 ] AV Peak Ryan 1.4 m/s [ 1.0 - 1.7 ] LVIDs 2D 3.0 cm [ 2.2 - 3.5 ] AV Peak PG 8 mmHg IVSd 2D 0.7 cm [ 0.6 - 0.9 ] AV Mean PG 4 mmHg LVPWd 2D 0.9 cm [ 0.6 - 0.9 ] AV VTI 32 cm LV Thickness Ratio 0.8 LVOT Peak Ryan 1.2 m/s [ 0.7 - 1.1 ] LV FS 2D 37.89 % [ 27.00 - 45.00 ] LVOT Peak PG 6 mmHg LV Mass 2D 134.97 g LVOT Mean PG 3 mmHg LV Mass Index 2D 74.05 g/m2 LVOT VTI 26 cm RWT 0.37 LVOT Diam 1.9 cm EDV Mod BP 59 ml [ 46 - 106 ] RAMÓN VTI 2.3 cm2 LV EDV Index 32 ml/m2 LVOT/AV VTI 0.81 - Dimensionless index (DVI) ESV Mod BP 25 ml [ 14 - 42 ] MV E Peak Ryan 0.76 m/s [ 0.60 - 1.30 ] EF Mod BP 58 % [ 54 - 74 ] MV A Peak Ryan 0.81 m/s [ 1.00 - 1.20 ] LV GLS -18.5 % [ -25.0 - -18.0 ] MV E/A 0.9 ratio [ 0.8 - 1.5 ] LA Dimension 2D 3.3 cm [ 2.7 - 3.8 ] MV Decel [place] 419 LA Length 4C 4.2 cm MV Decel Time 181 msec [ 104 - 258 ] LA Length 2C 4.3 cm Med E` Ryan 8.8 cm/sec [ 8.0 - 25.0 ] LA Volume BP 29 ml Lat E` Ryan 10.9 cm/sec [ 10.0 - 25.0 ] LA Volume Index 16 ml/m2 [ 16 - 34 ] Average E/E` 8 RV Base Dimen 2D 2.2 cm [ 2.5 - 4.2 ] RV S` 10.8 cm/sec TAPSE 1.8 cm [ 1.7 - 5.0 ] PV Peak Ryan 2.1 m/s [ 0.4 - 0.8 ] RA Volume 14 ml PV Peak PG 18 mmHg RA Volume Index 8 ml/m2 AoR Diam 2D 2.4 cm [ 2.7 - 3.3 ] Ao Root Index 1.3 cm/m2 [ 1.0 - 2.0 ] Asc Ao Diam 2D 2.8 cm Asc Ao Index 1.5 cm/m2 Electronically Signed By: Don Prasad MD 09/26/2025 4:56:34 AM HOSPITALITY MANAGER Procedure Note Don Prasad MD - 09/26/2025 [facility], [address] [place] [address] Transthoracic Echocardiographic Report Patient Name: ALEXANDRU THOMAS L : 1970 (54y 10m) Sex: F Study Date: 09/24/2025 07:09:07 AM Ht(Inch): 65 Wt(Lb): 164.99 BSA: 1.82 Painter Tumbling Barrel: Lucia RodriguezR.TJanak),[facility] Location: [facility] Order Provider:DON PRASAD Heart Rate: 61 BMI: 27.45 BP: 122 / 63 Ref Provider: DON PRASAD PROCEDURES: Echocardiographic Report: Transthoracic complete echo with strain imaging,2D, spectral and tissue Doppler, color flow Doppler, M-mode. Contrast: Patient refused contrast. Technically difficult study due to: Body habitus. Poor acoustic windows.Patient unable to cooperate and poor patient compliance. Limited visualization of somecardiac structures precludes the ability to obtain complete measurements - INDICATIONS: R00.2 Palpitations. CONCLUSIONS: 1. Normal left ventricular size based on volume index. Normal LV wallthickness. Normal left ventricular systolic function. The Ejection Fraction (Melo's) ismeasured at 58 %. Normal diastolic function. The average global longitudinal strain isnormal. 2. There are noLV regional wall motion abnormalities. 3. Normal right ventricular size. Normal right ventricular systolicfunction. 4. Normal mitral valve structure. Mild mitral valve regurgitation. Nostenosis present. 5. Normal trileaflet aortic valve. No aortic regurgitation. No aorticvalve stenosis. The mean transaortic gradient is 4 mmHg. The aortic valve area by thecontinuity equation (using VTI) is 2.3 cm2. Aortic valve dimensionless index is 0.81. 6. Normal tricuspid valve structure. No tricuspid regurgitation. Notricuspid valve stenosis. 7. Normal pulmonic valve structure. No pulmonic regurgitation. No pulmonicvalve stenosis present. 8. Normal pericardium without pericardial effusion. ATTESTATION: I have personally reviewed and interpreted this study without fellow orresident. DISCLAIMER: The study images and the final report will be retained in the patientchart by the Echo Laboratory for the legally required time period. This chart constitutesthe legal record of any testing performed. FINDINGS: Left Ventricle: Normal left ventricular size based on volume index. NormalLV wall thickness. Normal left ventricular systolic function. The EjectionFraction (Melo's) is measured at 58 %. Normal diastolic function. The average globallongitudinal strain is normal. The LV global strain is: -18.5 %. Regional Wall Motion: There are noLV regional wall motion abnormalities. Right Ventricle: Normal right ventricular size. Normal right ventricularsystolic function. Left Atrium: The left atrium is normal in size. Right Atrium: The right atrium is normal in size. Mitral Valve: Normal mitral valve structure. Mild mitral valveregurgitation. No stenosis present. Aortic Valve: Normal trileaflet aortic valve. No aortic regurgitation. Noaortic valve stenosis. The mean transaortic gradient is 4 mmHg. The aortic valve areaby the continuity equation (using VTI) is 2.3 cm2. Aortic valve dimensionlessindex is 0.81. Tricuspid Valve: Normal tricuspid valve structure. No tricuspidregurgitation. No tricuspid valve stenosis. Pulmonic Valve: Normal pulmonic valve structure. No pulmonicregurgitation. No pulmonic valve stenosis present. Pericardium: Normal pericardium without pericardial effusion. Aorta: The ascending aorta is normal in size when indexed. IVC: IVC is normal in size. MEASUREMENTS: 2D/MM Value Range DopplerValue Range LVIDd 2D 4.9 cm [ 3.8 - 5.2 ] AV Peak Vel1.4 m/s [ 1.0 - 1.7 ] LVIDs 2D 3.0 cm [ 2.2 - 3.5 ] AV Peak PG8 mmHg IVSd 2D 0.7 cm [ 0.6 - 0.9 ] AV Mean PG4 mmHg LVPWd 2D 0.9 cm [ 0.6 - 0.9 ] AV VTI32 cm LV Thickness Ratio 0.8 LVOT Peak Vel1.2 m/s [ 0.7 - 1.1 ] LV FS 2D 37.89 % [ 27.00 - 45.00 ] LVOT Peak PG6 mmHg LV Mass 2D 134.97 g LVOT Mean PG3 mmHg LV Mass Index 2D 74.05 g/m2 LVOT VTI26 cm RWT 0.37 LVOT Diam1.9 cm EDV Mod BP 59 ml [ 46 - 106 ] RAMÓN VTI2.3 cm2 LV EDV Index 32 ml/m2 LVOT/AV VTI0.81 - Dimensionless index (DVI) ESV Mod BP 25 ml [ 14 - 42 ] MV E Peak Vel0.76 m/s [ 0.60 - 1.30 ] EF Mod BP 58 % [ 54 - 74 ] MV A Peak Vel0.81 m/s [ 1.00 - 1.20 ] LV GLS -18.5 % [ -25.0 - -18.0 ] MV E/A0.9 ratio [ 0.8 - 1.5 ] LA Dimension 2D 3.3 cm [ 2.7 - 3.8 ] MV Decel [id number] LA Length 4C 4.2 cm MV Decel [id number] msec [ 104 - 258 ] LA Length 2C 4.3 cm Med E` Vel8.8 cm/sec [ 8.0 - 25.0 ] LA Volume BP 29 ml Lat E` Vel10.9 cm/sec [ 10.0 - 25.0 ] LA Volume Index 16 ml/m2 [ 16 - 34 ] Average E/E`8 RV Base Dimen 2D 2.2 cm [ 2.5 - 4.2 ] RV S`10.8 cm/sec TAPSE 1.8 cm [ 1.7 - 5.0 ] PV Peak Vel2.1 m/s [ 0.4 - 0.8 ] RA Volume 14 ml PV Peak PG18 mmHg RA Volume Index8 ml/m2 AoR Diam 2D 2.4 cm [ 2.7 - 3.3 ] Ao Root Index 1.3 cm/m2 [ 1.0 - 2.0 ] Asc Ao Diam 2D2.8 cm Asc Ao Index1.5 cm/m2 Electronically Signed By: Don Prasad MD 09/26/2025 4:56:34 AM HOSPITALITY MANAGER us Don Prasad MD CV ECHO PROCEDURES Final Resul t * (ABNORMAL) Advanced Lipid Panel, Cardio IQ (09/18/2025 9:58 AM CDT) Cholesterol 98 <200 mg/dL [facility] HDL 39(L) >49 mg/dL [facility] [employer] [facility] [facility] Triglycerides 119 <150 mg/dL [facility] LDL 39 <100 mg/dL (calc) [facility] Comment: Desirable range <100 mg/dL for primary prevention; <70 mg/dL for patients with CHD or diabetic patients with >= 2 CHD risk factors. LDL-C is now calculated using the Vinnie-Sullivan calculation, which is a validated novel method providing better accuracy than the Friedewald equation in the estimation of LDL-C. Vinnie SS et al. FAISAL. 2013;310(19): 1307-3139 (http://education.Internet REIT.com/faq/LWP816) LDL-C is now calculated using the Vinnie-Sullivan calculation, which is a validated novel method providing better accuracy than the Friedewald equation in the estimation of LDL-C. Vinnie SS et al. FAISAL. 2013;310(19): 3155-2401 (http://education.Internet REIT.com/faq/UWY078) Chol/HDL ratio 2.5 <5.0 calc [facility] [employer] [facility] Non-HDL, (LDL+VLDL) 59 <130 mg/dL (calc) [facility] [employer]. Comment: For patients with diabetes plus 1 major ASCVD risk factor, treating to a non-HDL-C goal of <100 mg/dL (LDL-C of <70 mg/dL) is considered a therapeutic option. For patients with diabetes plus 1 major ASCVD risk factor, treating to a non-HDL-C goal of <100 mg/dL (LDL-C of <70 mg/dL) is considered a therapeutic option. LDL, particle number 934 <1,138 nmol/L [facility] [place] [employer]. Comment: Relative Risk: Optimal <1138; Moderate 6479-5966; High >1409. Male and Female Reference Range: 1016 to 2185 nmol/L. LDL, particles, small 174(H) <142 nmol/L [facility] [employer]. Comment: Relative Risk: Optimal <142; Moderate 142-219; High >219. Male Reference Range: 123 to 441 nmol/L; Female Reference Range: 115 to 386 nmol/L. LDL, particles, medium 132 <215 nmol/L [facility] [employer]. Comment: Relative Risk: Optimal <215; Moderate 215-301; High >301. Male Reference Range: 167 to 485 nmol/L; Female Reference Range: 121 to 397 nmol/L. HDL, large particle 6,389(L) >6,729 nmol/L [facility] [place] [employer]. Comment: Relative Risk: Optimal >6729; Moderate 1394-4466; High <5353. Male Reference Range: 4334 to 77340 nmol/L; Female Reference Range: 5038 to 25726 nmol/L. LDL, pattern B(A) A Pattern [facility] [employer] [employer]. Comment: Relative Risk: Optimal Pattern A; High Pattern B. Reference Range: Pattern A. LDL, peak size 211.1(L) >222.9 Angstrom [facility] [employer]. Comment: This test was developed and its analytical performance characteristics have been determined by [facility]. It has not been cleared or approved by the U.S. Food and Drug Administration. This assay has been validated pursuant to the CLIA regulations and is used for clinical purposes. Relative Risk: Optimal >222.9; Moderate 222.9-217.4; High <217.4. Male and Female Reference Range: 216 to 234.3 Angstrom. Adult cardiovascular event risk category cut points (optimal, moderate, high) are based on an adult [place] reference population plus two large cohort study populations. Association between lipoprotein subfractions and cardiovascular events is based on Dominique et al. ATVB.2009;29:1975. For additional information, please refer to http://education.ApolloMed/faq/KRR590 (This link is being provided for informational/educational purposes only.) Apolipoprotein B 52 <90 mg/dL [employer]. Comment: Reference Range <90 Risk Category: Optimal <90 Moderate 90-129 High > or = 130 A desirable treatment target may be <80 mg/dL or lower depending on the risk category of the patient including patients on lipid lowering therapies, patients with ASCVD, diabetes with >1 risk factors, Stage 3 or greater CKD with albuminuria, or heterozygous familial hypercholesterolemia. ApoB relative risk category cut points are based on AACE/YARELIS and ACC/AHA recommendations (Shona SM, et al. 2019. doi:10.1016/j.jacc.2018.11.002; Emilio Y, et al. 2020. doi:10.4158/MP-9000-3779). Lipoprotein (A) <10 <75 nmol/L [employer] Comment: Risk: Optimal <75 nmol/L; Moderate 75-125 nmol/L; High >125 nmol/L. Cardiovascular event risk category cut points (optimal, moderate, high) are based on Michelle Cazares JACC 2017;69:692-711. Blood 09/18/2025 9:58 AM CDT 09/19/2025 5:56 AM CDT Narrative [facility] - 09/23/2025 10:55 PM HOSPITALITY MANAGER FASTING:YES FASTING: YES Don Prasad MD LAB BLOOD ORDERABLES Final Res ult [facility] [address], [address] [place] [address] * CARDIO IQ(R) VITAMIN D, 25-HYDROXY, LC/MS/MS (09/18/2025 9:58 AM CDT) [facility] Signature 25-OH Vit D 65 30 - 100 ng/mL [facility] Comment: (Note) Vitamin D, 25-Hydroxy reports concentrations of two common forms, 25-OHD2 and 25-OHD3. 25-OHD3 indicates both endogenous production and supplementation. 25-OHD2 is an indicator of exogenous sources such as diet or supplementation. Therapy is based on measurement of Total 25-OHD, with levels <20 ng/mL indicative of Vitamin D deficiency, while levels between 20 ng/mL and 30 ng/mL suggest insufficiency. Optimal levels are > or = 30 ng/mL. For additional information, please refer to http://[employer].ApolloMed/faq/TYV565 (This link is being provided for information/educational purposes only.) 25-OH Vit D, D3 fraction 65 ng/mL [facility] Comment:Reference range: Not established 25-OH Vit D, D2 fraction <4.0 ng/mL [facility] Comment: (Note) Reference range: Not established This test was developed and its analytical performance characteristics have been determined by [employer]. It has not been cleared or approved by the US Food and Drug Administration. This assay has been validated pursuant to the CLIA regulation and is used for Clinical purposes. [facility] med fusion [address] [address],[address] [facility] [address] Eber Alonso MD, PhD See Note 1 Note 1 For additional information, please refer to http://[employer].ApolloMed/faq/WPI514 (This link is being provided for informational/ educational purposes only.) Blood 09/18/2025 9:58 AM CDT 09/19/2025 5:56 AM CDT Narrative [facility] - 09/23/2025 10:55 PM HOSPITALITY MANAGER FASTING:YES FASTING: YES Don Prasad MD LAB BLOOD ORDERABLES Final Res ult [facility] [address] [address], [address] [place] [address] * (ABNORMAL) CARDIO IQ(R) HOMOCYSTEINE (09/18/2025 9:58 AM CDT) Homocysteine 16.0(H) <13.5 umol/L [facility] Comment: Homocysteine is increased by functional deficiency of folate or vitamin B12. Testing for methylmalonic acid differentiates between these deficiencies. Other causes of increased homocysteine include renal failure, folate antagonists such as methotrexate and phenytoin, and exposure to nitrous oxide. Selhub J, et al. [facility] [facility] Med. 1999;131(5):331-9. Homocysteine is increased by functional deficiency of folate or vitamin B12. Testing for methylmalonic acid differentiates between these deficiencies. Other causes of increased homocysteine include renal failure, folate antagonists such as methotrexate and phenytoin, and exposure to nitrous oxide. Selhub J, et al., [employer] [facility] Med. 1999;131(5):331-9. Blood 09/18/2025 9:58 AM CDT 09/19/2025 5:56 AM CDT Narrative [facility] - 09/23/2025 10:55 PM HOSPITALITY MANAGER FASTING:YES FASTING: YES Don Prasad MD LAB BLOOD ORDERABLES Final Res ult [employer] [address], [address] [place] [address] * (ABNORMAL) Cardio IQ(TM) High Sensitivity CRP (09/18/2025 9:58 AM CDT) hsCRP 3.9(H) <1.0 mg/L [facility] Comment: Reference Range: Optimal <1.0 mg/L, according to Florentino SCHAEFER et al. Endocr Pract.2017;23(Suppl 2):1-87. The AHA/CDC Guidelines recommend hs-CRP ranges for identifying Relative Cardiovascular Risk in patients ages >17 years: <1.0 mg/L Lower Relative Cardiovascular Risk; 1.0-3.0 mg/L Average Relative Cardiovascular Risk; 3.1-10.0 mg/L Higher Relative Cardiovascular Risk. If result is between 3.1 and 10.0 mg/L, consider retesting in 1-2 weeks to exclude a benign transient elevation secondary to infection or inflammation from the baseline CRP value. Persistent elevations of >10.0 mg/L upon retesting may be associated with infection and inflammation. The AHA/CDC recommendations are based on Luis Baeza, Naresh GAR, et al. Markers of inflammation and cardiovascular disease: application to clinical and public health practice: A statement for healthcare professionals from the Centers for Disease Control and Prevention and the [place] [employer]. Circulation 2003; 107(3): 499-511. For ages >17 Years: hs-CRP mg/L Risk According to AHA/CDC Guidelines <1.0 Lower relative cardiovascular risk. 1.0-3.0 Average relative cardiovascular risk. 3.1-10.0 Higher relative cardiovascular risk. Consider retesting in 1 to 2 weeks to exclude a benign transient elevation in the baseline CRP value secondary to infection or inflammation. >10.0 Persistent elevation, upon retesting, may be associated with infection and inflammation. Luis Baeza, Naresh GAR, et al. Markers of inflammation and cardiovascular disease: application to clinical and public health practice: A statement for healthcare professionals from the Centers for Disease Control and Prevention and the [place] Heart [employer]. Circulation 2003; 107(3): 499-511. Blood 09/18/2025 9:58 AM CDT 09/19/2025 5:56 AM CDT Narrative [facility] - 09/23/2025 10:55 PM HOSPITALITY MANAGER FASTING:YES FASTING: YES us Don Prasad MD LAB BLOOD ORDERABLES Final Res ult [facility] [address], [address] [place] [address] * Extended/Penitentiary Holter Patch (>48 hours up to 7 days) (09/09/2025 2:33 PM CDT) Anatomical Region Laterality Modality Electrocardiogra phy 09/09/2025 9:37 PM CDT Narrative 09/23/2025 2:17 PM HOSPITALITY MANAGER HOLTER MONITOR Patient Name: ALEXANDRU THOMAS L : 1970 (54y 9m) Sex: F Study Date: 09/09/2025 09:37:38 PM Ht(Inch): 65 Wt(Lb): 169.3 BSA: 1.88 Tech: Location: [facility] Order Provider: DON PRASAD BMI: 28.17 Ref Provider: DON PRASAD PROCEDURES: Holter Report: EXTENDED/HALF-WAY HOLTER PATCH (>48 HOURS UP TO 7 DAYS) [[id number]]. Enrollment Period: 2025-09-09 00:00:00 through 2025-09-12 00:00:00. Monitor Number: [id number]. Hookup: Patient Hookup: Chasity Borjas RN. Patient Instructions: Patient given monitor in office during appointment, patient understands directions and use of equipment. Location: [facility]. INDICATIONS: R00.2 Palpitations. FINDINGS: Holter Data: Min Rate: 51 BPM Min Rate Timestamp: 2025-09-11 10:22:43 Bradycardia (% of study): 6 Max Rate: 165 BPM Max Rate Timestamp: 2025-09-10 18:01:41 Tachycardia (% of study): 4 Mean Rate: 73 BPM AFib (% of study): 0 Singlets (PACs): 489 events Couplets (PACs): 12 events Total (PACs): 529 events Singlets (PVCs): 14 events Couplets (PVCs): 0 events Total (VE): 14 events Runs (VT): 0 events Total beats: 344112 SIGNIFICANT PAUSES: 0 >3 sec Protocol: Recording Duration (Ordered): 116355 Recording Duration (Actual): 538452.89 Number of Diary entries: 2 Patient Triggers 1 09/09 21:37:43 Patient Trigger 80 bpm page 8 2 09/10 09:38:19 Patient Trigger 84 bpm page 8 Study Quality: Study quality is good. SUMMARY: *The predominant rhythm was Sinus. *The Maximum Heart Rate recorded was 165 bpm, 09/10 18:01:41, the Minimum Heart Rate recorded was 51 bpm, 09/11 10:22:43, and the Average Heart Rate was 73 bpm. *There were 14 VE beats with a burden of <1 %. *There were 529 SVE beats with a burden of <1 %. There were 5 occurrences of Supraventricular Tachycardia with the Fastest episode 130 bpm, 09/11 23:46:35, and the Longest episode 4 beats, 09/12 09:56:10. *There were 2 Patient Triggers.;No symptoms noted. CONCLUSIONS: 1. *The predominant rhythm was Sinus. *The Maximum Heart Rate recorded was 165 bpm, 09/10 18:01:41, the Minimum Heart Rate recorded was 51 bpm, 09/11 10:22:43, and the Average Heart Rate was 73 bpm. *There were 14 VE beats with a burden of <1 %. *There were 529 SVE beats with a burden of <1 %. There were 5 occurrences of Supraventricular Tachycardia with the Fastest episode 130 bpm, 09/11 23:46:35, and the Longest episode 4 beats, 09/12 09:56:10. *There were 2 Patient Triggers.;No symptoms noted. 2. I have reviewed the PDF and all the ECG strips. I agree with the interpretations as detailed in the report 3. The PDF can be found in the Epic Patient chart. Please go to the Cardiology tab, click on the holter or event exam. Scroll to bottom where the ORDER LEVEL Documents reside and click the blue link to the pdf. Electronically Signed By: Don Prasad MD 09/23/2025 2:08:59 PM HOSPITALITY MANAGER Procedure Note Don Prasad MD - 09/23/2025 HOLTER MONITOR Patient Name: ALEXANDRU THOMAS L : 1970 (54y 9m) Sex: F Study Date: 09/09/2025 09:37:38 PM Ht(Inch): 65 Wt(Lb): 169.3 BSA: 1.88 Tech: Location: [facility] Order Provider: DON PRASAD BMI: 28.17 Ref Provider: DON PRASAD PROCEDURES: Holter Report: EXTENDED/HALF-WAY HOLTER PATCH (>48 HOURS UP TO 7 DAYS)[[id number]]. Enrollment Period: 2025-09-09 00:00:00 through 2025-09-12 00:00:00. Monitor Number: [id number]. Hookup: Patient Hookup: Chasity Borjas RN. Patient Instructions: Patient given monitor in office during appointment,patient understands directions and use of equipment. Location: [facility]. INDICATIONS: R00.2 Palpitations. FINDINGS: Holter Data: Min Rate: 51 BPM Min Rate Timestamp: 2025-09-11 10:22:43 Bradycardia (% of study): 6 Max Rate: 165 BPM Max Rate Timestamp: 2025-09-10 18:01:41 Tachycardia (% of study): 4 Mean Rate: 73 BPM AFib (% of study): 0 Singlets (PACs): 489 events Couplets (PACs): 12 events Total (PACs): 529 events Singlets (PVCs): 14 events Couplets (PVCs): 0 events Total (VE): 14 events Runs (VT): 0 events Total beats: 298338 SIGNIFICANT PAUSES: 0 >3 sec Protocol: Recording Duration (Ordered): 270285 Recording Duration (Actual): 554044.89 Number of Diary entries: 2 Patient Triggers 1 09/09 21:37:43 Patient Trigger 80 bpm page 8 2 09/10 09:38:19 Patient Trigger 84 bpm page 8 Study Quality: Study quality is good. SUMMARY: *The predominant rhythm was Sinus. *The Maximum Heart Raterecorded was 165 bpm, 09/10 18:01:41, the Minimum Heart Rate recorded was 51 bpm, 08/2410:22:43, and the Average Heart Rate was 73 bpm. *There were 14 VE beats with a burden of <1%. *There were 529 SVE beats with a burden of <1 %. There were 5 occurrences ofSupraventricular Tachycardia with the Fastest episode 130 bpm, 09/11 23:46:35, and theLongest episode 4 beats, 09/12 09:56:10. *There were 2 Patient Triggers.;No symptomsnoted. CONCLUSIONS: 1. *The predominant rhythm was Sinus. *The Maximum Heart Rate recorded wus159 bpm, 09/10 18:01:41, the Minimum Heart Rate recorded was 51 bpm, 09/11 10:22:43, andthe Average Heart Rate was 73 bpm. *There were 14 VE beats with a burden of <1 %.*There were 529 SVE beats with a burden of <1 %. There were 5 occurrences of SupraventricularTachycardia with the Fastest episode 130 bpm, 09/11 23:46:35, and the Longest episode4 beats, 09/12 09:56:10. *There were 2 Patient Triggers.;No symptoms noted. 2. I have reviewed the PDF and all the ECG strips. I agree with theinterpretations as detailed in the report 3. The PDF can be found in the Epic Patient chart. Please go to theCardiology tab, click on the holter or event exam. Scroll to bottom where the ORDER LEVELDocuments reside and click the blue link to the pdf. Electronically Signed By: Don Prasad MD 09/23/2025 2:08:59 PM HOSPITALITY MANAGER us Don Prasad MD CV CARDIAC SERVICES PROCEDURES Final Result * ECG 12 lead (09/09/2025 2:01 PM CDT) us Don Prasad MD ECG ORDERABLES Final Result * Cortisol 60 min (09/08/2025 8:40 AM CDT) Cortisol, 60 min 17.1 mcg/dL Comment: Interpretive [...] References: 1. Rodolfo BR, Yessenia H, Manuel OLEARY, et al. New cutoffs for the biochemical diagnosis of adrenal insufficiency after ACTH stimulation using specific cortisol assays. J Endocr Soc. 2020;5(4):gifc870. 2. Geovanny GARCIAP and Pat AM. New cutoffs for the biochemical diagnosis of Adrenal insufficiency after ACTH stimulation using specific cortisol assays. J. Endocrine Soc 2020;5:1-2. Current interpret data was last revised 24 Blood 09/08/2025 8:40 AM CDT 09/08/2025 11:42 AM CDT [facility] - 09/08/2025 12:33 PM CDT Obtain pre, 30 minutes, and 60 minutes post cosyntropin adminstration. us Lana Carmona DO LAB BLOOD ORDERABLES Fi nal Result [facility] Department [place] [address] * Cortisol 30 min (09/08/2025 8:10 AM [...] adrenal failure. Literature References: 1. Rodolfo BR, Yesseina H, Manuel TB, et al. New cutoffs for the biochemical diagnosis of adrenal insufficiency after ACTH stimulation using specific cortisol assays. J Endocr Soc. 2020;5(4):rqhp128. 2. Geovanny GARCIAP and Pat AM. New cutoffs for the biochemical diagnosis of Adrenal insufficiency after ACTH stimulation using specific cortisol assays. J. Endocrine Soc 2020;5:1-2. Current interpret data was last revised 24 Blood 09/08/2025 8:10 AM CDT 09/08/2025 11:42 AM CDT [facility] 09/08/2025 12:33 PM CDT Obtain pre, 30 minutes, and 60 minutes post cosyntropin adminstration. Lanarichard Carmona LAB BLOOD ORDERABLES nal Result Performing Organization Address [facility] Co de Phone Number [facility] [place] [address] * Cortisol baseline (09/08/2025 7:38 AM CDT) Cortisol, base 11.7 mcg/dL Blood 09/08/2025 7:38 AM CDT 09/08/2025 11:41 AM CDT [facility] 09/08/2025 12:32 PM CDT Obtain pre, 30 minutes, and 60 minutes post cosyntropin adminstration. Lanarichard Carmona LAB BLOOD ORDERABLES Fi nal Result [facility] Department [place] [address] * Hemoglobin A1c (08/10/2025 7:22 AM CDT) Hgb A1C 5.4 4.0 - 5.6 % Comment:Testing performed by : [facility], [address] [address]elroy, [place] [address] Estimated Average Glucose 108 mg/dL [facility] Comment: The ADA recommends reporting an estimated Average Glucose (eAG) with all Hemoglobin A1c results using the equation derived from a study of 507 normal and diabetic adults. Minority populations were underrepresented and children were not included. (Diabetes Care 31:8668-3954, 2008). The eAG is not equivalent to a fasting glucose. Testing performed by: [facility], [address] [address], Giovanni Cornelius, [place] [address] Blood 08/10/2025 7:22 AM CDT 08/10/2025 7:44 AM CDT Lana Carmona DO LAB BLOOD ORDERABLES Fi nal Result SYDNEY [place] [address] [address] [place] [address] * eGFR (08/10/2025 7:15 AM CDT) eGFR [...] was last reviewed 2021. Testing performed by: [facility], [address] [facility], [place] [address] Blood 08/10/2025 7:15 AM CDT 08/10/2025 7:44 AM CDT Elle Medel TEMPERER LAB BLOOD ORDERABLES Final Result SYDNEY [facility] [id number] [facility]. [place] [address] * Colonoscopy (02/11/2025 9:16 AM CDT) Anatomical Region Laterality Modality Other Narrative Procedure Note Montrell Kern MD - 02/11/2025 9:16 AM CDT ENDOSCOPY LAB Patient Name: Alexandru Thomas Procedure Date: 02/11/2025 9:16 AM Date of : 1970 Admit Type: Outpatient Age: 54 Gender: Female Attending MD: Montrell Kern M.D. Room: [facility] ENDOSCOPY ROOM 05 Note Status: Finalized Procedure: Colonoscopy Indications: High risk colon cancer surveillance: Crohn'scolitis of 8 (or more) years duration with one-third (ormore) of the colon involved Providers: Montrell Kern M.D. Referring MD: Kassandra L. Surrency, TEMPERER Medicines: See the Anesthesia note for documentation [...] The scope was passed under direct vision.The [id number] was introduced through the anusand advanced to [...] histology. There was evidence of a prior asbm-di-bxqr ileo-colonic anastomosisin the ascending colon. This was [...] to quiescent Crohn's disease. Biopsied. - Patent aaed-fj-awfd ileo-colonic anastomosis, characterized by healthy appearing mucosa.Biopsied. [...] During normal business hours - Please call [facility] Coordinator: [phone]. After hours, evening, nights, weekends and holidays- Please call the hospital can bander operator at and ask for the GI fellow calibration engineer. Attending Participation: I personally performed the entire procedure. Electronically signed by Montrell Kern MD Montrell Kern M.D. 02/11/2025 10:11:17 AM Number of Addenda: 0 Note Initiated On: 02/11/2025 9:16 AM us Montrell Kern MD ENDOSCOPY PROCEDURES Final Resul t * CT Lung Cancer Screening (10/13/2024 4:36 PM HOSPITALITY MANAGER) Anatomical Region Laterality Modality Chest N/A Computed Tomogra phy 10/17/2024 8:06 AM HOSPITALITY MANAGER Narrative 10/17/2024 8:07 AM HOSPITALITY MANAGER EXAM DESCRIPTION: CT LUNG CANCER SCREENING REASON [...] by David Ortiz M.D. SN: Report ID: [id number] Reading Location: [id number] Procedure Note David Ortiz MD - 10/17/2024 [...] David Ortiz M.D. SN: SN Report ID: [id number] Reading Location: [place] [address]ia Hear[address] DO IMG CT PROCEDURES Final R esult * Albumin Creatinine Ratio, Urine (10/09/2023 11:48 AM HOSPITALITY MANAGER) Albumin Ur <12.0 mg/L [facility] Comment: Interpretive Data No reference range established. Current interpretive data was last revised 2019. Creatinine Ur 161.6 mg/dL [facility] Comment: Interpretive Data No reference range established. Current interpretive data was last revised 2019. Albumin Creatinine Ratio, Ur <7 1 - 29 mg/g [facility] Urine 10/09/2023 11:4 8 AM HOSPITALITY MANAGER 10/09/2023 1:43 PM HOSPITALITY MANAGER Lana Carmona DO LAB URINE ORDERABLES Fi nal Result [facility] [place] [address] from Last 3 Months or Most Recently Relevant to Health Maintenance [place] Advance Directives For more information, please contact: [phone] * Full Code (Latest Code Status on File) Date Activated Date Inactivated Comments 02/11/2025 8:23 AM 02/11/2025 2:57 PM * Full Code Date Activated Date Inactivated Comments 03/14/2023 9:25 AM 03/14/2023 4:21 PM Care Teams Car Stower Relationship Specialty Start Date End Date Kassandra Hooks NP PCP - General Nurse Practitioner 08/27/24 Lucho Peralta MD Referring Physician Otolaryngology 12/07/23
--- OUTSIDE RECORDS SUMMARY | 2025-11-18 01:04 | XMS_ITS | Encounter Summary ---
Author Organization [facility] Address [address] [place] [address] Phone Care Team Providers Care Interlacer Name Role Phone Jesus Gonzalez DO Primary Care Provider Odilon Vyas MD Primary Care Provider + [phone] Lucho Peralta MD Unavailable Xiomara Carlos MD Primary Care Provider [phone] Odilon Vyas MD Primary Care Provider + [phone] Unknown, Notinfile Primary Care Provider Unavail able Kassandra Hooks NP Primary Care Provider + Encounter Details Date Type Department Care Team (Latest Contact Info) Description 08/24/2015 Orders Only [facility] CARDIOLOGY Chasity Borjas, CARMINA [address] [facility] [address] [place], [place] [id number] Social History Tobacco Use Types Packs/Day Years Used Date Smoking Tobacco: Never Assessed Comments Unknown Sex and Gender Information Value Date Recorded Sex Assigned at Not on file 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 Gender Identity Female 06/12/2023 3:27 PM [...] on filedocumented in this encounter Care Teams Interlacer Relationship Specialty Start Date End Date Jesus Gonzalez DO [address] [place] [address] PCP - General Family Medicine 10/26/21 02/07/23 Odilon Vyas MD [address] [place] [address] PCP - General Family Medicine 02/08/23 02/07/24 Xiomara Carlos MD [address] [place] [address] PCP - General Psychiatry 02/08/24 03/23/24 Odilon Vyas MD [address] [place] [address] PCP - General Family Medicine 03/24/24 08/12/24 Unknown, Notinfile PCP - General 08/13/24 08/26/24 Kassandra Hooks NP PCP - General Nurse Practitioner 08/27/24 Lucho Peralta MD [address] [place] [address] Referring Physician Otolaryngology 12/07/23 documented as of this encounter
--- OUTSIDE RECORDS SUMMARY | 2025-11-18 01:04 | XMS_ITS | Encounter Summary ---
Author Organization [facility] Address [address] [place] [address] Phone Care Team Providers Care Bucket Chucker Name Role Phone Jesus Gonzalez DO Primary Care Provider Odilon Vyas MD Primary Care Provider + [phone] Lucho Peralta MD Unavailable Xiomara Carlos MD Primary Care Provider [phone] Odilon Vyas MD Primary Care Provider + [phone] Unknown, Notinfile Primary Care Provider Unavail able Kassandra Hooks NP Primary Care Provider + Encounter Details Date Type Department Care Team (Latest Contact Info) Description 08/02/2015 Orders Only [facility] CARDIOLOGY Chasity Borjas, CARMINA [address] [facility] [address] [place], [place] [id number] Social History Tobacco Use Types Packs/Day Years Used Date Smoking Tobacco: Never Assessed Comments Unknown Sex and Gender Information Value Date Recorded Sex Assigned at Not on file 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 Gender Identity Female 06/12/2023 3:27 PM CDT [...] on filedocumented in this encounter Care Teams Bucket Chucker Relationship Specialty Start Date End Date Jesus Gonzalez DO [address] [place] [address] PCP - General Family Medicine 10/26/21 02/07/23 Odilon Vyas MD [address] [place] [address] PCP - General Family Medicine 02/08/23 02/07/24 Xiomara Carlos MD [address] [place] [address] PCP - General Psychiatry 02/08/24 03/23/24 Odilon Vyas MD [address] [place] [address] PCP - General Family Medicine 03/24/24 08/12/24 Unknown, Notinfile PCP - General 08/13/24 08/26/24 Kassandra Hooks NP PCP - General Nurse Practitioner 08/27/24 uLcho Peralta MD [address] [place] [address] Referring Physician Otolaryngology 12/07/23 documented as of this encounter
--- OUTSIDE RECORDS SUMMARY | 2025-11-18 01:04 | XMS_ITS | Encounter Summary ---
Author Organization [facility] Address [address] [place] [address] Phone Care Team Providers Care Cushion Maker Name Role Phone Lucho Peralta MD Unavailable Kassandra Hooks NP Primary Care Provider + Encounter Details Date Type Department Care Team (Latest Contact Info) Description 10/13/2025 Results Follow-Up [facility] Medicine Cardiology [address] [facility] [address] [place] [address] Gabriella Cope RMA Lipid panel, CRP (cardiac risk), Homocysteine Social History Tobacco Use Types Packs/Day Years [...] 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 Gender Identity Female 06/12/2023 3:27 PM CDT Sexual Orientation Lesbian 06/12/2023 3: 27 PM CDT documented as of this encounter Ordered Prescriptions Prescription Sig Dispense Quantity Refills Last Filled Start Date End Date atorvastatin (LIPITOR) 40 mg tablet Take 1 tablet (40 mg total) by mouth daily 30 tablet 10/13/2025 10/13/2026 documented in this encounter Plan of Treatment Scheduled Orders Name Type Priority Associated Diagnoses Orde r Schedule Lipid panel Lab Routine Hyperlipidemia, unspecified hyperlipidemia type Expected: 12/13/2025, Expires: 10/13/2026 Scheduled Procedures Name Priority Associated Diagnoses Date/Ti [...] as of this encounter Visit Diagnoses Diagnosis Hyperlipidemia, unspecified hyperlipidemia type- Primary documented in this encounter Discontinued Medications Medication Sig Discontinue Reason Start Date End Da te rosuvastatin (CRESTOR) 40 mg tabletIndications:Other hyperlipidemia Take 1 tablet (40 mg total) by mouth daily 08/24/2025 10/13/2025 documented as of this encounter Care Teams Cushion Maker Relationship Specialty Start Date End Date Kassandra Hooks NP PCP - General Nurse Practitioner 08/27/24 Lucho Peralta MD Referring Physician Otolaryngology 12/07/23 documented as of this encounter
--- OUTSIDE RECORDS SUMMARY | 2025-11-18 01:04 | XMS_ITS | Encounter Summary ---
Author Organization [facility] Address [address] [place] [address] Phone Care Team Providers Care Traffic Counter Name Role Phone Jesus Gonzalez DO Primary Care Provider Odilon Vyas MD Primary Care Provider + [phone] Lucho Peralta MD Unavailable Xiomara Carlos MD Primary Care Provider [phone] Odilon Vyas MD Primary Care Provider + [phone] Unknown, Notinfile Primary Care Provider Unavail able Kassandra Hooks NP Primary Care Provider + Encounter Details Date Type Department Care Team (Latest Contact Info) Description 08/16/2015 Orders Only [facility] CARDIOLOGY Chasity Borjas, CARMINA [address] 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 Gender Identity Female 06/12/2023 3:27 PM [...] on filedocumented in this encounter Care Teams Traffic Counter Relationship Specialty Start Date End Date Jesus Gonzalez DO [address] [place] [address] PCP - General Family Medicine 10/26/21 02/07/23 Odilon Vyas MD [address] [place] [address] PCP - General Family Medicine 02/08/23 02/07/24 Xiomara Carlos MD [address] [place] [address] PCP - General Psychiatry 02/08/24 03/23/24 Odilon Vyas MD [address] [place] [address] PCP - General Family Medicine 03/24/24 08/12/24 Unknown, Notinfile PCP - General 08/13/24 08/26/24 Kassandra Hooks NP PCP - General Nurse Practitioner 08/27/24 Lucho Peralta MD [address] [place] [address] Referring Physician Otolaryngology 12/07/23 documented as of this encounter
--- OUTSIDE RECORDS SUMMARY | 2025-11-18 01:05 | XMS_ITS | Encounter Summary ---
Author Organization [facility] Address [address] [place] [address] Phone Care Team Providers Care Sales Coordinator Name Role Phone Lucho Peralta MD Unavailable Odilon Vyas MD Primary Care Provider [phone] Unknown, Notinfile Primary Care Provider Unavail able Kassandra Hooks NP Primary Care Provider + Encounter Details Date Type Department Care Team (Late st Contact Info) Description 06/24/2024 Orders Only [facility] Medicine Gastroenterology [address] [facility] Medical Office [address], [address] [place] [address] Irma Dillon MD [address] [place] [address] Social History Tobacco Use Types [...] on file 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
--- OUTSIDE RECORDS SUMMARY | 2025-11-18 01:05 | XMS_ITS | Patient Health Record ---
Author Organization [facility] Address [address] [facility] [address] [place] [address] Care Team Providers Care Joint Cutter Name Role Phone Kassandra De Guzman Primary Care Provider Kiah Puentes Unavailable [phone] Tiara Rodrigues Unavailable [phone] Allergies Allergen (clinical drug ingredient) Drug/Non Drug [...] Severe recurrent major depression without psychotic features (58088824) Major depressive disorder, recurrent severe without psychotic features (F33.2) Active confirmed Problem Anger reaction (685697115) Anger reaction (R45.4) Active confirmed Encounters Encounter Location Date Provider Diagnosis Trader Sam [facility], [place] [address] [place] [address] 12/08/2024 Tiara Rodrigues Major depressive disorder, recurrent severe without psychotic features F33.2 and Anger reaction R45.4 [facility] [employer] [facility], [place] [address] [place] [address] 12/16/2024 Tiaar Rojaster [facility] [employer] [facility], [facility] [address] [place] [address] 12/18/2024 Tiara Rodrigues Major depressive disorder, recurrent severe without psychotic features F33.2 and Anger reaction R45.4 [facility] [employer] [facility], [facility] [address] [place] [address] 12/25/2024 Tiara Rodrigues Major depressive disorder, recurrent [...] and Alexa to maintain consistent communication with [employer]'s teachers and school staff. Recommend family [...] with Francisco Javier's teachers and school staff. Recommend family therapy [...] progress and continue addressing the identified issues. 12/18/2024 Major depressive disorder, recurrent severe without [...] discussions and emphasize the importance of self-care. 12/08/2024 Major depressive disorder, recurrent severe without psychotic features (ICD-10 - F33.2) Corazon would like to continue to meet for individual therapy to better manage depression, anxiety, and anger along with increasing positive communication skills with her family. 12/08/2024 Anger reaction (ICD-10 - R45.4) Corazon would like to continue to meet for individual therapy to better manage depression, anxiety, and anger along with increasing positive communication skills with her family. Plan Of Treatment No Information Insurance Providers Payer Name Payer Address Payer Phone Subscriber Number Group Number Insured Name Patient Relationship to Insured Coverage Start Date Coverage End Date [facility] [address] [place] [address] [id number] Danette Thomas Self - patient is the insured Medical (General) History Medical History History ICD Code A'Fib Crohn's Disease DM Hx of CVA Hx of TIA Insomnia Portal HTN
--- NOTE | 2025-11-18 09:06 | ECG_ITS ---
Test Date: 2025-11-18 10:39:27 Measurements Intervals [place] Rate: 60 P: 73 NV: 147 QRS: 62 QRSD: 95 T: 55 QT: 430 QTc: 432 Interpretive Statements SINUS RHYTHM INCOMPLETE RIGHT BUNDLE BRANCH BLOCK BASELINE ARTIFACT- V2, V6 BORDERLINE ECG Compared to ECG 10/22/2025 16:49:28 No significant changes Electronically Signed On 11-18-2025 21:13:57 NEON SIGN WORKER by Grey Bartlett D.O.
--- NOTE | 2025-11-18 10:16 | PM.SD2 ---
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 Plans are for her to undergo chemotherapy. A Port-A-Cath has been requested by her oncologist and she is taken to surgery today for placement. She does have a history of factor 5 Leiden and portal vein thrombosis. She is on chronic anticoagulation with apixaban. 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 01/16/25 patient declined SDOH Smoking packs per day: 1.5 Smoking cigarettes per day: 30.0 Years smoked: 20 Smoking pack-years: 30.00 Smoking status: Former smoker Tobacco type: cigarettes Smoking end date: 10/23/15 Additional smoking assessment comments: Quit 2015. 35pk yr history Alcohol intake: former Substance use: current Substance use type: marijuana Other substance usage details: drinks tea to help slee Last use: 09/11 Lack of Transportation: YES Lack of Food: Often True Current Housing: I Have Housing Concerned About Future Housing: YES Difficulty Paying Gas/Electric Bills: YES Difficulty Paying for Meds: YES Currently Unemployed: YES Education: Bachelor's Degree Difficulty w/ Childcare or Family Care: No Living arrangements: with family Occupation/Education: retired Spiritual care concerns: No Same Day Admit/Disch: Med Pre-admit Medications Home Medications ?Medication ?Instructions ?Recorded ?Confirmed ?Type sucralfate 1 gram tablet 1 g PO TID PRN Acid Reflux 08/02/21 11/17/25 History adalimumab 40 mg/0.8 mL See Rx Instructions subcut .Every 10/24/21 11/17/25 Rx subcutaneous pen kit (Humira Pen) other Week #2 ea pantoprazole 40 mg tablet,delayed 40 mg PO QAM #90 tabs 01/09/22 11/17/25 Rx release ascorbic acid (vitamin C) 1,000 mg 1 g PO DAILY 05/12/22 11/17/25 History tablet (Vitamin C) turmeric 100 mg-benjy 150 1 cap PO DAILY 05/12/22 11/17/25 History mg-olive 50 mg-oreg 150 mg-capryl capsule hydrocortisone acetate 25 mg 25 mg RECTAL DAILY PRN CROHN'S EXAC 07/19/23 11/17/25 History rectal suppository mercaptopurine 50 mg tablet 50 mg PO DAILY 07/19/23 11/17/25 History sumatriptan succinate 50 mg tablet 50 mg PO ONCE PRN MIGRAINES 07/19/23 11/17/25 History (Imitrex) tizanidine 2 mg capsule 2 mg PO TID 07/25/23 11/17/25 History albuterol sulfate 2.5 mg/3 mL 2.5 mg (3 mL) inhalation Q4-6H PRN 06/09/24 11/17/25 Rx (0.083 %) solution for nebulization shortness of breath or wheezing #90 mL Saccharomyces boulardii 250 mg 250 mg PO TID #30 caps 09/16/24 11/17/25 Rx capsule (Florastor) linezolid 600 mg tablet 600 mg PO Q12HR #18 tabs 09/16/24 11/17/25 Rx ondansetron 4 mg disintegrating 4 mg PO Q4H 3 doses #10 tabs 12/30/24 11/17/25 Rx tablet mupirocin 2 % topical ointment 1 applic topical QID #44 grams 04/03/25 11/17/25 Rx (Centany) meclizine 25 mg tablet 25 mg PO TID PRN dizziness #20 tabs 05/12/25 11/17/25 Rx ciprofloxacin 0.3 %-dexamethasone 5 drp LEFT EAR TID #7.5 mL 08/18/25 11/17/25 Rx 0.1 % ear drops,suspension ropinirole 1 mg tablet 1 mg PO DAILY #30 tabs 09/23/25 11/17/25 Rx cholecalciferol (vitamin D3) 1,250 See Rx Instructions .Route 09/29/25 11/17/25 Rx mcg (50,000 unit) capsule .COMPLEX #12 caps eszopiclone 3 mg tablet 3 mg PO QHS #90 tabs 09/29/25 11/17/25 Rx paroxetine HCl 40 mg tablet (Paxil) 40 mg PO HS #90 tabs 09/29/25 11/17/25 Rx aspirin 81 mg tablet,delayed 325 mg PO DAILY 09/30/25 11/17/25 History release albuterol sulfate 90 mcg/actuation 2 inh inhalation Q4H PRN shortness 10/27/25 11/17/25 Rx aerosol inhaler of breath or wheezing #6.7 grams apixaban 5 mg tablet (Eliquis) 5 mg PO BID #60 tabs 10/27/25 11/17/25 Rx alprazolam 0.5 mg tablet 0.5 mg PO BID #60 tabs 10/30/25 11/17/25 Rx oxycodone-acetaminophen 10 mg-325 1 tablet PO Q8H PRN pain #90 tabs 10/30/25 11/17/25 Rx mg tablet atorvastatin 40 mg tablet 40 mg PO DAILY 11/17/25 11/17/25 History Review of Systems Review of Systems All systems reviewed & are unremarkable except as noted in HPI and below (A HPI) Exam Const: General: comfortable, no acute distress, alert and awake HENMT: Head: normocephalic and atraumatic Mouth: Yes Normal oral and palatal mucosa present Eyes: Conjunctivae: conjunctivae normal Pupils: Equal, round and reactive pupils present EOM: EOMs intact bilaterally Neck: Neck: normal visual inspection, no lymphadenopathy and nontender Chest: Chest palpation & inspection: normal inspection of the chest, normal palpation of entire chest wall, no crepitus, no masses, no tenderness, No Pacemaker present and No rash Resp: Effort & Inspection: normal respiratory effort Auscultation: clear to auscultation bilaterally Cardio: Rate: regular rate Rhythm: regular rhythm Heart sounds: no gallops, no murmurs and no rubs GI: Inspection: non-distended GI Palp: Yes Soft to palpation, No Tenderness to palpation present (GI), No Hepatomegaly present and No Splenomegaly present Skin: Lesions: no lesions Rashes: no rashes Neuro: General: no focal motor deficits and CN's II-XI intact bilaterally Cranial nerves: Yes Equal, round and reactive pupils present, Yes Bilaterally intact EOM present, Yes facial symmetry and Yes Midline tongue present Speech: normal speech Motor exam (neuro): 5/5 motor strength present throughout and Motor abnormalities not present Extrem: General: no clubbing, cyanosis or edema and edema Psych: Affect: normal affect Thought process: Normal thought process present Insight: Good insight present (Psych) DS: Summary Time Spent with Patient Time attestation: Total time spent providing and/or coordinating discharge services: DS: Admitting Diagnosis Discharge Date 11/18/2025 Admitting Diagnosis 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 I discussed these procedure with the patient including the risks and benefits. All questions were answered. She understands and wishes to proceed. Factor 5 Leiden Portal vein thrombosis Chronic anticoagulation-held for surgery Crohn's disease DS: Discharge Diagnosis Discharge Diagnosis (1) Goblet cell carcinoid: Code(s): C18.1 - Malignant neoplasm of appendix Status: Chronic Assessment and Plan: Right internal jugular Port-A-Cath placed 11/18/[address] Jackson Discharge Plan Discharge Patient Disposition: Home Discharge Instructions: Medications: Patient to resume all previous home medication Use your existing Percocet prescription for any postoperative pain. If additional analgesics are needed, call the provider who is writing the Percocet prescription to ask for more. Treatments: May bathe or shower tomorrow. May return to work or driving in 24 hours unless taking narcotic pain medications Follow-up with medical oncologist for chemotherapy. Only need to see Surgeon for follow up if having problems. Patient Language: Serbian Stand Alone Forms: General Discharge Instructions Follow-up/Referrals: Roni Tracy MD [Physician, Hematology] - Keep Reg. Scheduled Appt. Discharge Medications: Continued ondansetron 4 mg tablet,disintegrating 4 mg PO Q4H 0 Days Qty: 10 0RF Rx Instructions: 1st dose 1-2 hr before radiation meclizine 25 mg tablet 25 mg PO TID PRN (Reason: dizziness) Qty: 20 0RF tizanidine 2 mg capsule 2 mg PO TID mupirocin [Centany] 2 % ointment 1 applic topical QID Qty: 44 3RF Rx Instructions: Melt 2 in in each irrigation bottle irrigate 4 times per day ciprofloxacin-dexamethasone 0.3-0.1 % drops,suspension 5 drp LEFT EAR TID Qty: 7.5 1RF Rx Instructions: affected ear, tragal pump after applying, let sit for 5 minutes, use until follow up sucralfate 1 gram tablet 1 g PO TID PRN (Reason: Acid Reflux) ascorbic acid (vitamin C) [Vitamin C] 1,000 mg Tablet 1 g PO DAILY [id number]-capry 100 mg-150 mg- 50 mg-150 mg Capsule 1 cap PO DAILY aspirin 81 mg tablet,delayed release (DR/EC) 325 mg PO DAILY mercaptopurine 50 mg tablet 50 mg PO DAILY sumatriptan succinate [Imitrex] 50 mg Tablet 50 mg PO ONCE PRN (Reason: MIGRAINES) hydrocortisone acetate 25 mg suppository 25 mg RECTAL DAILY PRN (Reason: CROHN'S EXAC) Saccharomyces boulardii [Florastor] 250 mg Capsule 250 mg PO TID Qty: 30 0RF linezolid 600 mg Tablet 600 mg PO Q12HR Qty: 18 0RF atorvastatin 40 mg tablet 40 mg PO DAILY Humira Pen 40 mg/0.8 mL pen injector kit See Rx Instructions subcut .Every other Week Qty: 2 10RF Rx Instructions: inject one - 40 mg/0.8 mL pen every other week subcut . pantoprazole 40 mg tablet,delayed release (DR/EC) 40 mg PO QAM Qty: 90 0RF albuterol sulfate 2.5 mg /3 mL (0.083 %) solution for nebulization 2.5 mg inhalation Q4-6H PRN (Reason: shortness of breath or wheezing) Qty: 90 0RF ropinirole 1 mg tablet 1 mg PO DAILY Qty: 30 3RF cholecalciferol (vitamin D3) 1,250 mcg (50,000 unit) capsule See Rx Instructions .ROUTE .COMPLEX Qty: 12 5RF Dose Instruction: TAKE ONE CAPSULE BY MOUTH WEEKLY ON SUNDAY Rx Instructions: TAKE ONE CAPSULE BY MOUTH WEEKLY ON SUNDAY paroxetine HCl [Paxil] 40 mg tablet 40 mg PO HS Qty: 90 1RF eszopiclone 3 mg tablet 3 mg PO QHS Qty: 90 0RF albuterol sulfate 90 mcg/actuation HFA aerosol inhaler 2 inh inhalation Q4H PRN (Reason: shortness of breath or wheezing) Qty: 6.7 3RF Eliquis 5 mg tablet 5 mg PO BID Qty: 60 3RF oxycodone-acetaminophen 10-325 mg tablet 1 tablet PO Q8H PRN (Reason: pain) Qty: 90 0RF alprazolam 0.5 mg tablet 0.5 mg PO BID Qty: 60 0RF
--- NOTE | 2025-11-18 10:48 | WPDANESEPPF ---
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 Patient Data Age: 55 Gender: F Height: 1.65 m Weight: 74.84 kg Allergies Allergy/AdvReac Type Severity Reaction Status Date / Time metronidazole (From Flagyl) Allergy Severe GI bleeding Verified 11/17/25 08:27 Sulfa (Sulfonamide Allergy Severe GI Bleeding Verified 11/17/25 08:27 Antibiotics) sulfamethoxazole (From Allergy Unknown Verified 11/17/25 08:27 Bactrim) trimethoprim (From Bactrim) Allergy Unknown Verified 11/17/25 08:27 hydrocodone (From Vicodin) AdvReac Severe Vomiting Verified 11/17/25 08:27 adhesive tape AdvReac Blister Verified 11/17/25 08:27 Home Medications ?Medication ?Instructions ?Recorded ?Confirmed ?Type sucralfate 1 gram tablet 1 g PO TID PRN Acid Reflux 08/02/21 11/17/25 History adalimumab 40 mg/0.8 mL See Rx Instructions subcut .Every 10/24/21 11/17/25 Rx subcutaneous pen kit (Humira Pen) other Week #2 ea Held on 09/16/24. Instructions: Resume on 10/03/24. Continue to hold this medications especially while on antibiotics. Follow up with ENT before restarting this medication. This medication suppresses the immune system and can lead to chronic infections. pantoprazole 40 mg tablet,delayed 40 mg PO QAM #90 tabs 01/09/22 11/17/25 Rx release ascorbic acid (vitamin C) 1,000 mg 1 g PO DAILY 05/12/22 11/17/25 History tablet (Vitamin C) turmeric 100 mg-benjy 150 1 cap PO DAILY 05/12/22 11/17/25 History mg-olive 50 mg-oreg 150 mg-capryl capsule hydrocortisone acetate 25 mg 25 mg RECTAL DAILY PRN CROHN'S EXAC 07/19/23 11/17/25 History rectal suppository mercaptopurine 50 mg tablet 50 mg PO DAILY 07/19/23 11/17/25 History sumatriptan succinate 50 mg tablet 50 mg PO ONCE PRN MIGRAINES 07/19/23 11/17/25 History (Imitrex) tizanidine 2 mg capsule 2 mg PO TID 07/25/23 11/17/25 History albuterol sulfate 2.5 mg/3 mL 2.5 mg (3 mL) inhalation Q4-6H PRN 06/09/24 11/17/25 Rx (0.083 %) solution for nebulization shortness of breath or wheezing #90 mL Saccharomyces boulardii 250 mg 250 mg PO TID #30 caps 09/16/24 11/17/25 Rx capsule (Florastor) linezolid 600 mg tablet 600 mg PO Q12HR #18 tabs 09/16/24 11/17/25 Rx ondansetron 4 mg disintegrating 4 mg PO Q4H 3 doses #10 tabs 12/30/24 11/17/25 Rx tablet mupirocin 2 % topical ointment 1 applic topical QID #44 grams 04/03/25 11/17/25 Rx (Centany) meclizine 25 mg tablet 25 mg PO TID PRN dizziness #20 tabs 05/12/25 11/17/25 Rx ciprofloxacin 0.3 %-dexamethasone 5 drp LEFT EAR TID #7.5 mL 08/18/25 11/17/25 Rx 0.1 % ear drops,suspension ropinirole 1 mg tablet 1 mg PO DAILY #30 tabs 09/23/25 11/17/25 Rx cholecalciferol (vitamin D3) 1,250 See Rx Instructions .Route 09/29/25 11/17/25 Rx mcg (50,000 unit) capsule .COMPLEX #12 caps eszopiclone 3 mg tablet 3 mg PO QHS #90 tabs 09/29/25 11/17/25 Rx paroxetine HCl 40 mg tablet (Paxil) 40 mg PO HS #90 tabs 09/29/25 11/17/25 Rx aspirin 81 mg tablet,delayed 325 mg PO DAILY 09/30/25 11/17/25 History release albuterol sulfate 90 mcg/actuation 2 inh inhalation Q4H PRN shortness 10/27/25 11/17/25 Rx aerosol inhaler of breath or wheezing #6.7 grams apixaban 5 mg tablet (Eliquis) 5 mg PO BID #60 tabs 10/27/25 11/17/25 Rx alprazolam 0.5 mg tablet 0.5 mg PO BID #60 tabs 10/30/25 11/17/25 Rx oxycodone-acetaminophen 10 mg-325 1 tablet PO Q8H PRN pain #90 tabs 10/30/25 11/17/25 Rx mg tablet atorvastatin 40 mg tablet 40 mg PO DAILY 11/17/25 11/17/25 History Patient hx anesthesia problems: none Family hx anesthesia problems: none Results Review: All pre-operative results and documents have been reviewed as part of the pre-operative evaluation. 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 01/16/25 patient declined SDOH Smoking packs per day: 1.5 Smoking cigarettes per day: 30.0 Years smoked: 20 Smoking pack-years: 30.00 Smoking status: Former smoker Tobacco type: cigarettes Smoking end date: 10/23/15 Additional smoking assessment comments: Quit 2015. 35pk yr history Alcohol intake: former Substance use: current Substance use type: marijuana Other substance usage details: drinks tea to help slee Last use: 09/11 Lack of Transportation: YES Lack of Food: Often True Current Housing: I Have Housing Concerned About Future Housing: YES Difficulty Paying Gas/Electric Bills: YES Difficulty Paying for Meds: YES Currently Unemployed: YES Education: Bachelor's Degree Difficulty w/ Childcare or Family Care: No Living arrangements: with family Occupation/Education: retired Spiritual care concerns: No Anes - Eval Final PreProcedure Day of Procedure 11/18/25 10:48 Patient weight: overweight Heart: regular rate and rhythm Lungs: decreased breath sounds Airway: Mallampati scale class II Neurological: alert and oriented Last oral intake: >/= 8 hours ASA classification: IV Emergent: no Anesthetic plan: proceed Anesthesia type and monitoring: general GIVS and standard monitoring Results Review: All pre-operative results and documents have been reviewed as part of the pre-operative evaluation. Informed Consent: The patient's anesthetic plan and its attendant risks and benefits were discussed with the patient/family/POA. Questions were solicited and answers provided to the satisfaction of the patient/family/POA.
[2025-11-18 11:30] VITALS: BP 118/51; PULSE 69; RESP 16; TEMP 36.4; O2SAT 100
[2025-11-18] MEDS: KETOROLAC 15 MG/ML VIAL (*BKC) IV PUSH (11:30)
[2025-11-18] MEDS: MIDAZOLAM HCL (*CRX) 2 MG/2 ML VIAL IV PUSH (11:50)
[2025-11-18 12:04] LABS: Hematocrit 36.4 % (37.0-47.0); Hemoglobin 12.2 g/dL (12.0-15.0)
[2025-11-18] MEDS: ceFAZolin 2 GM in SODIUM CHLORIDE 0.9% IV 50 ML 100 ML IVPB (13:12)
--- NOTE | 2025-11-18 13:15 | WPDHPUPDATE1 ---
History and Physical Update Update Date/Time: 11/18/25 13:15 History and Physical has been reviewed, including an updated exam of the patient. There are NO changes in the patient's condition. Risks, benefits, and alternatives have been discussed and questions answered. Patient agrees to proceed with procedure.
--- NOTE | 2025-11-18 13:15 | PM.OP ---
Procedure Note - Brief Procedure Note - Brief Date of procedure: 11/18/25 malignant neoplasm of appendix, inadequate venous access for chemotherapy Post-op diagnosis: Same Procedure performed: Placement right internal jugular Port-A-Cath under fluoroscopy and using ultrasound Surgeon: Abdulaziz Jackson MD Facilities Maintenance Technician: Brenda BENITEZ Anesthesia: MAC (G IV S)
[2025-11-18] MEDS: BUPIVACAINE/EPINEPHRINE 0.5% 50 ML VIAL 10 ML INFILTRATE (13:42)
[2025-11-18 14:40] VITALS: BP 102/52; PULSE 72; RESP 14; O2SAT 100
[2025-11-18] MEDS: LACTATED RINGERS 1,000 ML 30 ML IV CONT (14:40)
--- NOTE | 2025-11-18 14:43 | W.PM.PROC2 ---
Procedure Note - Detailed Date of Procedure 11/18/25 Pre-op Diagnosis malignant neoplasm of appendix, inadequate venous access for chemotherapy Post-op Diagnosis Same Procedure Performed Placement right internal jugular Port-A-Cath using ultrasound and fluoroscopy Surgeon Abdulaziz Jackson MD Logistics Loss Prevention Manager Brenda BENITEZ Anesthesia General (G IV S) Indications Patient has metastatic appendiceal cancer and plans to have chemotherapy Findings None significant Description of Procedure Patient was placed in a supine position in the operating room. Anesthesia was introduced. Prep and drape of the right neck and right upper chest was carried out. Ultrasound was then used and the right internal jugular vein was cannulated. A guidewire was able to be passed.
[2025-11-18 15:10] VITALS: BP 98/57; PULSE 68; RESP 14; O2SAT 96
[2025-11-18 15:30] VITALS: BP 108/55; PULSE 72; RESP 14
[2025-11-18 15:45] VITALS: BP 96/47; PULSE 72; RESP 14
== END 2025-11-18 15:56 | disposition home or self-care (01) ==
PROVIDERS: PCP Nurse Practitioner Family; Visit Provider Surgery
PROC: (CPT 36561; principal; 2025-11-18 12:30)
DX: C18.1 Malignant neoplasm of appendix (principal)
CPT/HCPCS: 36561; 36415; 77001; 85014; 85018; 93005; J0690; C1788; J1100; J1644; J1885; J2003; J2250; J2371; J2405; J2704; J3010; J7030; J7120